=== PATIENT | female | born 1950 | race Caucasian/White ===

== ENCOUNTER 2022-11-26 10:55 | Outpatient (OUT) | payer MEDICARE, OTHER, SELFPAY ==
--- NOTE | 2022-11-26 11:10 | XR_ITS ---
[address] [address] Patient Name: ANGIE WATT MRN: [id number] date: 1950 Sex: F Assigned Patient Location: LAB Current Patient Location: LAB Accession/Order Number: [id number] Exam Date: 11/26/2022 11:12 Report Date: 11/26/2022 11:35 At the request of: YUAN LAURA Procedure: XR chest 2V EXAM: XR chest 2V HISTORY: Persistent Atrial Fibrillation I48.19 COMPARISON: None. TECHNIQUE: PA and lateral views of the chest. FINDINGS: The cardiomediastinal silhouette is normal. No focal consolidation is identified. There is no pneumothorax. No pleural effusion is noted. The osseous structures are intact. IMPRESSION: No acute cardiopulmonary process. Electronically authenticated by: MICHELL PULLIAM Date: 11/26/2022 11:35
[2022-11-26 12:12] LABS: Basophils Percent Auto 0.3 % (0.2-2.0); Eosinophils Absolute Auto 0.2 10^3/uL (0.0-0.7); Eosinophils Percent Auto 3.5 % (0.9-7.0); Hematocrit 38.4 % (36.0-48.0); Immature Granulocytes Abs Auto 0.02 10^3/uL (0.00-0.03); Immature Granulocytes Pct Auto 0.3 % (0.0-0.5); Lymphocytes Absolute Auto 1.5 10^3/uL (1.2-3.8); Lymphocytes Percent Auto 24.7 % (20.5-60.0); Mean Corpuscular HGB Conc 31.3 g/dL (29.9-35.2); Mean Corpuscular Hemoglobin 27.5 pg (26.7-34.0); Mean Corpuscular Volume 87.9 fL (81.0-99.0); Mean Platelet Volume 9.5 fL (9.5-13.5); Monocytes Absolute Auto 0.6 10^3/uL (0.3-0.8); Monocytes Percent Auto 9.5 % (1.7-12.0); Neutrophils Absolute Auto 3.7 10^3/uL (1.4-6.5); Neutrophils Percent Auto 61.7 % (43.0-75.0); Platelet Count 313 10^3/uL (150-450); Red Blood Count 4.37 10^6/uL (4.20-5.40); Red Cell Distribution Width 15.9 % (11.0-15.0)
[2022-11-26 12:26] LABS: Alanine Aminotransferase 22 U/L (14-59); Albumin Globulin Ratio 0.8; Albumin Level 3.4 g/dL (3.4-5.0); Alkaline Phosphatase 129 U/L (46-116); Anion Gap 11.8; Aspartate Amino Transferase 23 U/L (15-37); BUN Creatinine Ratio 12.4; Bilirubin Total 0.3 mg/dL (0.2-1.0); Calcium 9.2 mg/dL (8.5-10.1); Carbon Dioxide 28.7 mmol/L (21.0-32.0); Chloride 103 mmol/L (98-107); Estimated GFR (African America >60 (>=60); Estimated GFR (Non-African Ame >60 (>=60); Globulin 4.2 g/dL; Glucose 115 mg/dL (74-106); Potassium 4.5 mmol/L (3.5-5.1); Sodium 139 mmol/L (136-145); Total Protein 7.6 g/dL (6.4-8.2)
[2022-11-26 12:35] LABS: Chol HDL Ratio 3.1; Cholesterol 194 mg/dL (<=200); HDL Cholesterol 62 mg/dL (40-60); Thyroid Stimulating Hormone 6.049 uIU/mL (0.358-3.740); Triglycerides 69 mg/dL (<=150); VLDL CHOLESTEROL 13.8 mg/dL
== END 2022-11-26 10:56 ==
LOC: LAB 11:02
PROVIDERS: PCP Family Medicine; Visit Provider Nurse Practitioner Family
DX: I48.19 Other persistent atrial fibrillation (principal); E78.5 Hyperlipidemia, unspecified
CPT/HCPCS: 36415; 71046; 80053; 80061; 84443; 85025

== ENCOUNTER 2023-05-16 15:24 | Outpatient (OUT) | payer MEDICARE, OTHER, SELFPAY ==
[2023-05-16 16:21] LABS: Free T3 1.96 pg/mL (2.18-3.98); Thyroid Stimulating Hormone 11.275 uIU/mL (0.358-3.740)
== END 2023-05-16 15:25 | disposition home or self-care (01) ==
LOC: LAB 15:31
PROVIDERS: PCP Family Medicine; Visit Provider Family Medicine
DX: E05.90 Thyrotoxicosis, unspecified without thyrotoxic crisis or storm (principal)
CPT/HCPCS: 36415; 84436; 84443; 84481

== ENCOUNTER 2023-06-14 15:15 | Outpatient (OUT) | payer MEDICARE, SELFPAY ==
[2023-06-14 16:02] LABS: Free T3 1.94 pg/mL (2.18-3.98); Thyroid Stimulating Hormone 7.261 uIU/mL (0.358-3.740)
== END 2023-06-14 15:16 | disposition home or self-care (01) ==
PROVIDERS: PCP Family Medicine; Visit Provider Family Medicine
DX: E05.90 Thyrotoxicosis, unspecified without thyrotoxic crisis or storm (principal)
CPT/HCPCS: 36415; 84436; 84443; 84481

== ENCOUNTER 2023-06-25 12:58 | Outpatient (OUT) | payer MEDICARE, OTHER, SELFPAY ==
--- NOTE | 2023-06-25 13:00 | RT_ITS ---
[facility] Test Date: 2023-06-25 Pat Name: ANGIE WATT Department: Room: - Gender: Female Staff Midwife: Bella Castillo RRT : 1950 Requested By: Armando Spencer Order Number: [id number] Trevor MD: Juvenal Mcgraw Interpretive Statements Pulmonary function testing was completed according to ATS criteria. Findings were considered accurate and reproducible, with exception of DLCO which did not meet ATS standards. Both pre- and post-bronchodilator values utilized for spirometry. No prior studies are available for comparison. Spirometry (based on pre-bronchodilator values): -FEV1/FVC: Normal @ 79% -FEV1: Normal @ 85% -FVC: Low normal @ 82% -There is no significant bronchodilator response. Lung volumes by plethysmography: -RV: Increased @ 133% -TLC: Increased @ 125% Diffusion capacity: -DLCO: Normal @ 116% when corrected for Hb 12g/dL Flow-volume loop: -Mild restrictive pattern Impressions: -Spirometry trends towards a mild restrictive pattern, however lung volumes are increased. Normal diffusion capacity. Pattern suggests obesity (stated BMI 54) is inducing a restrictive physiology which may be masking an underlying obstructive process (e.g. COPD given smoking history) as an elevated RV and TLC suggest air trapping and hyperinflation respectively. PFT does not suggest any amiodarone-induced pulmonary disease. Clinical correlation required. Electronically Signed On 06-26-2023 12:30:38 EST by Juvenal Mcgraw
[2023-06-25] MEDS: ALBUTEROL SULFATE 2.5 MG/3 ML VIAL NEB IH (14:13)
== END 2023-06-25 12:59 | disposition home or self-care (01) ==
LOC: CARD 12:58
PROVIDERS: PCP Family Medicine; Visit Provider Nurse Practitioner
DX: Z79.899 Other long term (current) drug therapy (principal)
CPT/HCPCS: 36415; 85018; 94060; 94726; 94729

== ENCOUNTER 2023-06-27 13:52 | Outpatient (OUT) | payer MEDICARE, OTHER, SELFPAY ==
--- OUTSIDE RECORDS SUMMARY | 2023-06-27 13:55 | XMS_ITS | CCD ---
Author Name Unknown Address [address] [place] [address] Organization [facility] Care Team Providers Care [place] Jailer Name Role Phone KERRI SMITH Referring Unavailable BISHOPY, KERRI Primary Care Unavailable JOECHARLI Polk Attending Unavailable JOECHARLI Polk Admitting Unavailable MISC, DR FLAHERTY Admitting Unavailable HOY, DR MANNING Primary Care Unavailable MISC, DR FLAHERTY Attending Unavailable MISC, DR FLAHERTY Consulting Unavailable JOE, CHARLI Consulting Unavailable HOY, DR MANNING Attending Unavailable HOY, DR MANNING Consulting Unavailable HOY, DR MANNING Primary Care Unavailable HOY, DR MANNING Admitting Unavailable JOE, CHARLI Consulting Unavailable JOE, CHARLI Admitting Unavailable JOE, CHARLI Attending Unavailable HOY, DR MANNING Primary Care Unavailable YUAN LAURA Attending Unavailable LISSA OLIVER Attending Unavailable Problems Active Problems Problem Classification Problem Date Documented Da te Episodic/Chronic Cardiac dysrhythmias (4 sources) Unspecified atrial fibrillation; Translations: [UNSPECIFIED ATRIAL FIBRILLATION] Onset: 06-14-2021 Chronic Essential hypertension (1 source) Essential (primary) hypertension; Translations: [ESSENTIAL PRIMARY HYPERTENSION] Onset: 06-27-2021 Chronic Other aftercare (2 sources) Other terminal carman (current) drug therapy; Translations: [Other skilled nursing (current) drug therapy] Onset: 06-18-2023 Episodic Thyroid disorders (1 source) Hypothyroidism, unspecified; Translations: [HYPOTHYROIDISM UNSPECIFIED] Onset: 06-27-2021 Chronic Unclassified (4 sources) CONTACT W/AND (SUSP) EXPOS COVID-19; Translations: [CONTACT W/AND (SUSP) EXPOS COVID-19] Onset: 06-18-2021 Unclassified (2 sources) Other persistent atrial fibrillation; Translations: [Other persistent atrial fibrillation] Onset: 05-09-2022 Past or Other Problems Problem Classification Problem Date Documented Da te Episodic/Chronic Other lower respiratory disease (1 source) Other forms of dyspnea; Translations: [OTHER FORMS OF DYSPNEA] Onset: 06-27-2021 Episodic Unclassified (1 source) CONTACT W/AND (SUSP) EXPOS COVID-19; Translations: [CONTACT W/AND (SUSP) EXPOS COVID-19] Onset: 03-07-2022 Results Test Name Value Interpretation Reference Range Facility Office Visiton 06-18-2023 Follow-up visit [id number] Jenny Watt 1950 F Date Provider Department Center 06/18/2023 LISSA CASTRO Family History Problem Relation Age of Onset Heart attack Father Atrial fibrillation Father Atrial fibrillation Sister Family Status - Relation Status Age at Father Sister Level of Service:80905 MD OFFICE/OUTPATIENT ESTABLISHED MOD MDM 30 MIN [facility] Orders Onlyon 02-20-2023 Orders Only [id number] Jenny Watt 1950 F Date Provider Department Center 02/20/2023 VALENTE LYNN [facility] Family History Problem Relation Age of Onset Heart attack Father Atrial fibrillation Father Atrial fibrillation Sister Family Status - Relation Status Age at Father Sister [facility] 36on 12-11-2022 36 Patient called back and I made her aware. Lab results faxed to PCP. [facility] 36on 12-10-2022 36 Please let her know her CXR was normal. Her labs showed her kidney function, liver function and blood counts were all normal. Her bad cholesterol levels were above goal. She is at 119, would like for her to be less than 100 for stroke and [place] prevention. Recommend heart healthy diet such as the mediterranean diet and trying to implement some form of exercising. Her thyroid function is a little elevated but better since her last labs we have on file from 2019. Please make sure she follows up with her PCP for her thyroid management. Continue with follow-up amio testing q6 months. Thank you! [facility] Telephoneon 12-10-2022 Telephone [id number] Jenny Watt 1950 F Date Provider Department Center 12/10/[address] Family History Problem Relation Age of Onset Heart attack Father Atrial fibrillation Father Atrial fibrillation Sister Family Status - Relation Status Age at Father Sister Normal [facility] Office Visiton 11-19-2022 Follow-up visit [id number] Jenny Watt 1950 F Date Provider Department Center 11/19/2022 YUAN ACE CRYSTAL [facility] Family History Problem Relation Age of Onset Heart attack Father Atrial fibrillation Father Atrial fibrillation Sister Family Status - Relation Status Age at Father Sister Level of Service:34336 MD OFFICE/OUTPATIENT ESTABLISHED MOD MDM 30-39 MIN Reason for Visit and Comments: Atrial Fibrillation [80] Hypertension [968828] Normal [facility] Covid-19 PCR ([facility]on 02-16 SARS-CoV-2 (COVID-19) RNA SP+probe Ql (Unsp spec) Not detected Normal NOT DETECTED [facility] Comment on above: Result Comment: When diagnostic testing is negative, the possibility of a false negative should be considered in the context of a patient's recent exposures and the presence of clinical signs and symptoms consistent with SARS-CoV-2. This test is not yet approved or cleared by the [place] FDA. When there are no FDA-approved or cleared tests available, and other criteria are met, FDA can make tests available under an emergency access mechanism called an Emergency Use Authorization (EUA). The EUA for this test is supported by the [employer] Helper of Health and Human Service's declaration that circumstances exist to justify the emergency use of in vitro diagnostics for the detection and/or diagnosis of the virus that causes COVID-19. This EUA will remain in effect for the duration of the COVID-19 declaration justifying emergency of IVDs, unless it is terminated or revoked by the FDA (after which the test may no longer be used). Performed By: #### C VDTB #### [facility] [address] [place] [address] Dr. Maik Singleton BASIC METABOLIC PANELon 07-19 Calcium [Mass/Vol] 8.1 mg/dL Low 8.6-10.3 [facility] Comment on above: Order Comment: No: D o not add to previous draw Performed By: #### 1 69, [id number] #### [facility] [address] [place] [address], [place] Chloride [Moles/Vol] 99 mmol/L Normal 98-107 [facility] Comment on above: Order Comment: No: D o not add to previous draw Performed By: #### 1 69, 83710 #### [facility] [address] [place] [address], [place] CO2 [Moles/Vol] 27 mmol/L Normal 21-31 [facility] Comment on above: Order Comment: No: D o not add to previous draw Performed By: #### 1 69, 82834 #### [facility] [address] [place] [address], [place] Creatinine [Mass/Vol] 0.82 mg/dL Normal 0.60-1.20 [facility] Comment on above: Order Comment: No: D o not add to previous draw Performed By: #### 1 69, [id number] #### [facility] [address] [place] [address], [place] GFR/1.73 sq M.predicted among blacks MDRD (S/P/Bld) [Vol rate/Area] mL/min/{1.73_m2} Normal >60 [facility] Comment on above: Order Comment: No: D o not add to previous draw Performed By: #### 1 69, 75520 #### [facility] [address] [place] [address], [place] GFR/1.73 sq M.predicted among non-blacks MDRD (S/P/Bld) [Vol rate/Area] mL/min/{1.73_m2} Normal >60 [facility] Comment on above: Order Comment: No: D o not add to previous draw Performed By: #### 1 69, 44678 #### [facility] [address] [place] [address], [place] Glucose [Mass/Vol] 109 mg/dL High 70-100 [facility] Comment on above: Order Comment: No: D o not add to previous draw Performed By: #### 1 69, 31793 #### [facility] [address] [place] [address], [place] Potassium [Moles/Vol] 4.0 mmol/L Normal 3.5-5.1 [facility] Comment on above: Order Comment: No: D o not add to previous draw Performed By: #### 1 69, 64360 #### [facility] [address] [place] [address], [place] Sodium [Moles/Vol] 134 mmol/L Low 136-145 [facility] Comment on above: Order Comment: No: D o not add to previous draw Performed By: #### 1 69, 26413 #### [facility] [address] [place] [address], [place] Urea nitrogen [Mass/Vol] 12 mg/dL Normal 7-25 [facility] Comment on above: Order Comment: No: D o not add to previous draw Performed By: #### 1 69, 61032 #### [facility] [address] [place] [address], [place] CBC COMPLETE BLOOD COUNTon 0 2- Erythrocyte distribution width (RBC) [Ratio] 15.5 % High 11.5-15.0 [facility] Comment on above: Order Comment: No: D o not add to previous draw Performed By: #### 5 0608 #### [facility] [address] [place] [address], [place] Hematocrit (Bld) [Volume fraction] 36.9 % Normal 36.0-45.0 [facility] Comment on above: Order Comment: No: D o not add to previous draw Performed By: #### 5 0608 #### [facility] [address] [place] [address], [place] Hemoglobin (Bld) [Mass/Vol] 11.5 g/dL Low 12.0-15.0 [facility] Comment on above: Order Comment: No: D o not add to previous draw Performed By: #### 5 0608 #### [facility] [address] [place] [id number], [facility] MCH (RBC) [Entitic mass] 27.1 pg Normal 27.0-33.0 [facility] Comment on above: Order Comment: No: D o not add to previous draw Performed By: #### 5 0608 #### [facility] [address] [place] [address], [facility] MCHC (RBC) [Mass/Vol] 31.2 g/dL Low 32.0-35.0 [facility] Comment on above: Order Comment: No: D o not add to previous draw Performed By: #### 5 0608 #### [facility] [address] [place] [address], [facility] MCV (RBC) [Entitic vol] 87.0 fL Normal 82.0-98.0 [facility] Comment on above: Order Comment: No: D o not add to previous draw Performed By: #### 5 0608 #### [facility] [address] [place] [address], [facility] Nucleated RBC/100 WBC (Bld) [Ratio] 0 % Normal 0-0 [facility] Comment on above: Order Comment: No: D o not add to previous draw Performed By: #### 5 0608 #### [facility] [address] [place] [id number], [facility] PLAT CNT 258 10*3/uL Normal 150-400 The [facility] Comment on above: Order Comment: No: D o not add to previous draw Performed By: #### 5 0608 #### [facility] [address] [place] [address], [facility] RBC (Bld) [#/Vol] 4.24 10*6/uL Normal 3.80-5.00 [facility] Comment on above: Order Comment: No: D o not add to previous draw Performed By: #### 5 0608 #### [facility] [address] [place] [address], [facility] WBC (Bld) [#/Vol] 10.20 10*3/uL Normal 4.00-10.60 [facility] Comment on above: Order Comment: No: D o not add to previous draw Performed By: #### 5 0608 #### [facility] [address] [facility] [address] MAGNESIUM BLOODon 08-10-2021 Magnesium [Mass/Vol] 2.2 mg/dL Normal 1.9-2.7 [facility] Comment on above: Order Comment: No: D o not add to previous draw Performed By: #### 1 0070, [id number] #### [facility] [address] [facility] APTTon 08-09-2021 aPTT Coag (Bld) [Time] 26.9 s Normal 25.0-35.0 [facility] Comment on above: Result Comment: ALL RESULTS MUST BE INTERPRETED WITH RESPECT TO BLOOD DRAWING ARTIFACT OR DILUTION ERROR OF ANTICOAGULANT AT THE TIME OF SAMPLING. THE APTT SHOULD NOT BE USED TO MONITOR UNFRACTIONATED HEPARIN THERAPY, THIS LABORATORY NO LONGER HAS AN ESTABLISHED THERAPEUTIC RANGE BASED ON THE APTT. IT IS RECOMMENDED THAT THE UFH - HEPARIN ASSAY (ANTI-XA ACTIVITY) BE USED FOR THIS PURPOSE. Performed By: #### 5 6101, 08721 #### [facility] [address] [place] [address], [facility] CBC W/DIFFon 08-09-2021 ABS IMM GRANS 0.0 10*3/uL Normal 0.0-0.2 The [facility] Comment on above: Performed By: #### 5 0103 #### [facility] [address] [place] [address], [facility] ABS NEUTROPHILS 5.1 10*3/uL Normal 1.6-7.6 The [facility] Comment on above: Performed By: #### 5 0103 #### [facility] [address] [place] [address], [facility] Basophils (Bld) [#/Vol] 0.0 10*3/uL Normal 0.0-0.2 [facility] Comment on above: Performed By: #### 5 0103 #### [facility] [address] [place] [address], [facility] Basophils/100 WBC (Bld) 0.4 % Normal 0.0-1.0 [facility] Comment on above: Performed By: #### 5 0103 #### [facility] [address] [facility] [place] [address], [facility] Eosinophils (Bld) [#/Vol] 0.2 10*3/uL Normal 0.0-0.5 [facility] Comment on above: Performed By: #### 5 0103 #### [facility] [address] [facility] [place] [address], [facility] Eosinophils/100 WBC (Bld) 2.3 % Normal 0.0-6.0 [facility] Comment on above: Performed By: #### 5 0103 #### [facility] [address] [facility] Erythrocyte distribution width (RBC) [Ratio] 15.3 % High 11.5-15.0 [facility] Comment on above: Performed By: #### 5 0103 #### [facility] [address] [facility] [place] [address], [facility] Hematocrit (Bld) [Volume fraction] 37.4 % Normal 36.0-45.0 [facility] Comment on above: Performed By: #### 5 3 #### [facility] [address] [place] [address], [facility] Hemoglobin (Bld) [Mass/Vol] 11.5 g/dL Low 12.0-15.0 [facility] Comment on above: Performed By: #### 5 0103 #### [facility] [address] [facility] [place] [address], [facility] IMMATURE GRANS 0.3 % Normal 0.0-1.0 The [facility] Comment on above: Performed By: #### 5 0103 #### [facility] [address] [facility] [place] [address], [facility] Lymphocytes (Bld) [#/Vol] 1.1 10*3/uL Low 1.2-4.0 [facility] Comment on above: Performed By: #### 5 0103 #### [facility] [address] [place] [address], [facility] Lymphocytes/100 WBC (Bld) 16.1 % Low 20.0-45.0 [facility] Comment on above: Performed By: #### 5 0103 #### [facility] [address] [facility] [place] [address], [facility] MCH (RBC) [Entitic mass] 26.9 pg Low 27.0-33.0 [facility] Comment on above: Performed By: #### 5 0103 #### [facility] [address] [facility] [place] [address], [facility] MCHC (RBC) [Mass/Vol] 30.7 g/dL Low 32.0-35.0 [facility] Comment on above: Performed By: #### 5 0103 #### [facility] [address] [place] [address], [facility] MCV (RBC) [Entitic vol] 87.4 fL Normal 82.0-98.0 [facility] Comment on above: Performed By: #### 5 3 #### [facility] [address] [facility] [place] [address], [place] Monocytes (Bld) [#/Vol] 0.6 10*3/uL Normal 0.1-1.0 [facility] Comment on above: Performed By: #### 5 0103 #### [facility] [address] [place] [address], [facility] MONOS 8.8 % Normal 5.0-12.0 [facility] Comment on above: Performed By: #### 5 0103 #### [facility] [address] [place] [address], [facility] Neutrophils/100 WBC (Bld) 72.1 % High 40.0-72.0 [facility] Comment on above: Performed By: #### 5 0103 #### [facility] [address] [facility] [address], [facility] Nucleated RBC/100 WBC (Bld) [Ratio] 0 % Normal 0-0 [facility] Comment on above: Performed By: #### 5 0103 #### [facility] [address] [facility] [address], [facility] PLAT CNT 271 10*3/uL Normal 150-400 The [facility] Comment on above: Performed By: #### 5 0103 #### [facility] [address] [facility] [address], [facility] RBC (Bld) [#/Vol] 4.28 10*6/uL Normal 3.80-5.00 The [facility] Comment on above: Performed By: #### 5 0103 #### [facility] [address] [facility] [place] [address], [facility] WBC (Bld) [#/Vol] 7.02 10*3/uL Normal 4.00-10.60 [facility] Comment on above: Performed By: #### 5 3 #### [facility] [address] [place] [address], [facility] COMP METABOLIC PANELon 08-09 Albumin [Mass/Vol] 3.8 g/dL Normal 3.5-5.7 [facility] Comment on above: Performed By: #### 0 0121 #### [facility] [address] [place] [address], [facility] ALKALINE PHOSPH 140 IU/L High 34-104 The [facility] Comment on above: Performed By: #### 0 0121 #### [facility] [address] [place] [address], [place] ALT [Catalytic activity/Vol] 13 U/L Normal 7-52 [facility] Comment on above: Performed By: #### 0 0121 #### [facility] [address] [place] [address], [place] AST [Catalytic activity/Vol] 17 U/L Normal 13-39 [facility] Comment on above: Performed By: #### 0 0121 #### [facility] [address] [place] [address], [place] Bilirubin [Mass/Vol] 0.5 mg/dL Normal 0.3-1.0 [facility] Comment on above: Performed By: #### 0 0121 #### [facility] [address] [place] [address], [place] Calcium [Mass/Vol] 8.7 mg/dL Normal 8.6-10.3 [facility] Comment on above: Performed By: #### 0 0121 #### [facility] [address] [place] [address], [place] Chloride [Moles/Vol] 104 mmol/L Normal 98-107 [facility] Comment on above: Performed By: #### 0 0121 #### [facility] [address] [place] [address], [place] CO2 [Moles/Vol] 28 mmol/L Normal 21-31 The [facility] Comment on above: Performed By: #### 0 0121 #### [facility] [address] [place] [address], [place] Creatinine [Mass/Vol] 0.74 mg/dL Normal 0.60-1.20 [facility] Comment on above: Performed By: #### 0 0121 #### [facility] [address] [place] [address], [place] GFR/1.73 sq M.predicted among blacks MDRD (S/P/Bld) [Vol rate/Area] mL/min/{1.73_m2} Normal >60 [facility] Comment on above: Performed By: #### 0 0121 #### [facility] [address] [place] [address], [place] GFR/1.73 sq M.predicted among non-blacks MDRD (S/P/Bld) [Vol rate/Area] mL/min/{1.73_m2} Normal >60 [facility] Comment on above: Performed By: #### 0 0121 #### [facility] [address] [place] [address], [place] Glucose [Mass/Vol] 116 mg/dL High 70-100 [facility] Comment on above: Performed By: #### 0 0121 #### [facility] [address] [place] [address], [place] Potassium [Moles/Vol] 3.9 mmol/L Normal 3.5-5.1 [facility] Comment on above: Performed By: #### 0 0121 #### [facility] [address] [place] [address], [place] Protein [Mass/Vol] 6.4 g/dL Normal 6.0-8.3 [facility] Comment on above: Performed By: #### 0 0121 #### [facility] [address] [place] [address], [place] Sodium [Moles/Vol] 138 mmol/L Normal 136-145 [facility] Comment on above: Performed By: #### 0 0121 #### [facility] [address] Urea nitrogen [Mass/Vol] 10 mg/dL Normal 7-25 [facility] Comment on above: Performed By: #### 0 0121 #### [facility] [address] [facility] [address] Cardiovascular Lab Reporton 08-09-2021 Cardiovascular Lab Report [facility] Patient Name: Jenny Watt [facility] MR #: [id number] Physician: Charli Pulido MD Department of Service Date: 08/09/2021 Medicine Birthdate: 1950 Division of Room #: 3CD [id number] Cardiology Adult Cardiovascular Services [place] [address] Cardiovascular Laboratory Report ATRIAL FIBRILLATION ABLATION PROCEDURE NOTE DATE OF PROCEDURE: 08/09/2021 PERFORMING PHYSICIAN: Dr. Charli Pulido CONSENT: Patient NAME OF THE PROCEDURE: Pulmonary Vein Isolation and Comprehensive EP study. INDICATIONS FOR PROCEDURE: 1. Persistent atrial fibrillation non responsive to pharmacologic therapy. PROCEDURES PERFORMED: 1. Sonosite guided venous access as noted below and images stored in PACS. 2. Comprehensive EP study and catheter ablation for persistent atrial fibrillation through the pulmonary vein isolation technique. This includes right atrial recording and pacing, His bundle recording and right ventricular recording and pacing. 3. Intracardiac EP 3D mapping. 4. Intracardiac echocardiogram 5. Left atrial and coronary sinus recording and pacing to assess ablation results. 6. Left heart pressure measurements and LV pacing and recording. 7. Induction of arrhythmia and testing of ablation results using intravenous adenosine infusion. 8. Fluroscopy. FLUOROSCOPY: 4min 7s/ 108mGray PROCEDURE NOTE: 71-year-old lady with a history of persistent atrial fibrillation, who was symptomatic with AFib who was fatigued and tired, and was previously cardioverted, but could not be converted to sinus rhythm. She was brought to the EP lab on amiodarone and on the day of presentation, she was noted to be in atrial fibrillation. Risks, benefits and alternatives of the procedure were discussed with the patient and family who agreed to proceed. Please refer to my consult note for details of the discussion and of indications. The patient was brought to the EP lab and a procedural pause was performed identifying the patient, the procedure. The patient presented in Afib and ROGELIO was performed to rule out TYREE clot. ICE imaging was used to rule out TYREE clot and DCCV was performed to convert to sinus rhythm but was unsuccessful on two occasions. Both the groins were then prepared and draped. Ultrasound was used to determine the course and patency of the femoral veins on both sides and they were noted to be patent and the image stored in Merge. After infiltration with 1% lidocaine, 4 venous sheaths were placed in the right. A right radial arterial line was placed by Anesthesia team. RFV: 8Fx4 [employer] ThermoCool SF Bi-Directional over SL1/ Vizigo, SL1:Pentaray, ICE catheter, CS Catheter (EZ Steer) Heparin bolus was given followed by continuous intravenous drip to target ACT around 350. An intracardiac ultrasound catheter was inserted into the right atrium to examine the right atrial anatomy, atrial septum, pulmonary vein anatomy and to monitor for pericardial effusion and guide transseptal access. At baseline, there was no pericardial effusion and no TYREE clot. LA was noted to be moderately enlarged with moderate MR while RA was severely enlarged. EP study was then performed and at baseline HV was 42ms. Ventricular pacing was performed in the RV with ventricular ERP was noted at 600/290ms. Atrial pacing could not be done as patient was in Afib. Esophagus was mapped using the [employer] 3D mapping software with quadripolar catheter and noted to be towards the left sided pulmonary veins. Double transseptal access technique was used to cross to the left side. Following the first transeptal access, which was achieved via puncture of the thinner aspect of the septum using Enrique needle, Pentaray catheter was placed in the left atrium. Transseptal LA pressure was 27/21mmHg at baseline. With LV pacing at 600ms, the LA pressure was 28/22mmHg. With repeat access, SL1 sheath was exchanged over a wire to 8.5F Vizigo sheath. Pulmonary vein and left atrial anatomic mapping was performed using a 3-D CARTO computer-based mapping system. Identification of the pulmonary vein ostia was assisted by the left atrial signals on the ablation catheter, the ICE catheter and the Pentaray catheter placed in the individual pulmonary veins. Left atrial mapping was performed in afib. The esophagus was mapped and this was noted to lie along the midline. Ablation was performed using Thermocool ablation using 40W targeting 5-8s in the posterior wall and roof and 10-12s while ablating in the anterior WACA. Entrance block was observed. Again, I turned my attention to the right side and ablation was performed. While ablating on the anterior aspect, phrenic capture was ruled out before delivering ablation lesions. Entrance block was achieved. I then turned my attention to the posterior wall. Ablation was perform (more content not included)... Normal [facility] POC GLUCOSE LABon 08-09-2021 Glucose [Mass/Vol] 107 mg/dL High 70-100 [facility] Comment on above: Performed By: #### [id number] #### [facility] [address] PROTHROMBIN TIMEon 2 INR Coag (PPP) [Relative time] 1.01 {INR} Normal 0.91-1.16 [facility] Comment on above: Result Comment: ACCC P RECOMMENDED INR FOR WARFARIN THERAPY ------ ------- CONDITION INR PROPHYLAXIS OF VENOUS THROMBOSIS 2-3 (HIGH-RISK SURGERY) TREATMENT OF VENOUS THROMBOSIS 2-3 TREATMENT OF PULMONARY EMBOLISM 2-3 PREVENTION OF SYSTEMIC EMBOLISM: 2-3 ACUTE MYOCARDIAL INFARCTION TISSUE HEART VALVES VALVULAR HEART DISEASE ATRIAL FIBRILLATION RECURRENT SYSTEMIC EMBOLISM MECHANICAL HEART VALVE 2.5-3.5 FROM: ORAL ANTICOAGULANTS. MECHANISM OF ACTION, CLINICAL EFFECTIVENESS, AND OPTIMAL THERAPEUTIC RANGE. CHEST 1995;108:231S-246S. Performed By: #### [id number], [id number] #### [facility] [address] [facility] [place] [address], [facility] PT Coag (PPP) [Time] 13.3 s Normal 12.3-14.8 [facility] Comment on above: Result Comment: ALL RESULTS MUST BE INTERPRETED WITH RESPECT TO BLOOD DRAWING ARTIFACT OR DILUTION ERROR OF ANTICOAGULANT AT THE TIME OF SAMPLING. Performed By: #### [id number], [id number] #### [facility] [address] [place] [address], [facility] CTA CHESTon 08-08-2021 CTA CHEST [facility] Department of Radiology [address] [place] [address] [id number] ======== Patient Name: JENNY WATT : 1950 Sex: F Age: Race: White Pt. Location: Patient Status: O Ordered Date: 07/27/2021 1:35:00 PM Completed Date: 08/08/2021 12:58 PM Requesting Provider: CHARLI PULIDO Attending Provider: CHARLI PULIDO Report Copy To: KERRI SMITH Signs & Symptoms: I48.0 Paroxysmal atrial fibrillation I10 History: Kailey patient will need labs need to schedule next week, please transfer to Judy Comments: , AFib Ablation 08/09/21 Exam: CTA CHEST ======== CTA CHEST 08/08/2021 1:00 PM CLINICAL INDICATIONS: I48.0 Paroxysmal atrial fibrillation I10 TECHNOLOGIST COMMENTS: sob htn a fib pre ablasion QUESTIONS PER RADIOLOGIST: , AFib Ablation 08/09/21 PROTOCOL: Axial CT angiography images were obtained with IV contrast. CONTRAST: Contrast: OMNIPAQUE 350 (LOCM), 130 milliliter, Intravenous TECHNIQUE: Multidetector CT axial slices of the chest were obtained with IV contrast. Multiplanar reformats were performed and viewed on a separate workstation and reviewed to further define anatomy and possible pathology. Gated 3-D reconstruction of the left atrium and pulmonary veins were performed and saved on the PACS. Images are available for catheter lab team prior to ablation procedure. All CT scans at this facility use dose modulation, iterative reconstruction, and/or weight based dosing when appropriate to reduce radiation dose to as low as reasonably achievable. COMPARISON: None. FINDINGS: Lower neck: Visualized part of Thyroid gland within normal limits, no supraclavicle adenopathy. Vessels: Pulmonary arteries appeared grossly unremarkable. Minimal atherosclerotic changes in the aorta. and coronary arteries. Mediastinum and Eve: Within normal limits. Heart: Normal size. No pericardial effusion. Airways: Within normal limits Lungs: Within normal limits. Pleura: Within normal limits. Chest Wall: Within normal limits. Upper Abdomen: Small splenule is seen adjacent to the posterior pole of the spleen inferiorly. Atrophic fatty infiltrated pancreas. Otherwise, visualized abdominal viscera appeared unremarkable Bones: Bony spurring in the lower cervical and thoracic spine suggesting mild spondylosis with no acute bony pathology. Gated evaluation of the left atrium revealed normal size and morphology. The left atrium measures maximum transverse dimensions of 8.3 x 5 cm. There is no filling defects in the left atrial appendage with ostium of approximately 16.5 mm and the length of the left atrial appendage is 4.7 cm. The left superior pulmonary vein measures 14 mm and first branch is approximately 3.6 cm from the ostium. The left inferior pulmonary vein ostium is 14 mm and first branch is approximately 2.6 cm from the ostium. The right superior pulmonary vein measures 17 mm at the ostium and first branch is approximately 2.2 cm from the ostium. The right inferior pulmonary vein measures 20 mm at the ostium and first branch is approximately 18 mm from the ostium. The esophagus which is mildly air-filled and demonstrates air-contrast level is inseparable from the posterior wall of the left atrium but not adjacent to the ostium of any of the pulmonary veins. IMPRESSION: Normal size and morphology of the left atrium and measurement of the left atrial appendage and 2 pulmonary veins on each side as listed above. 3-D volume rendered images of the left atrium and pulmonary veins are saved on PACS for utilization by the electrophysiology team during ablation procedure. Mild lower cervical and thoracic spondylosis. Otherwise, unremarkable chest CTA examination. Electronically signed: Audrey Umana. Transcribed by: [email or web address], User Resident: Electronically Signed by: AUDREY UMANA @ 08/08/2021 03:05 PM Normal [facility] Comment on above: Order Comment: , Gavin b Ablation 08/09/21 Covid-19 PCR ([facility])on 05-18 SARS-CoV-2 (COVID-19) RNA SP+probe Ql (Unsp spec) Not detected Normal NOT DETECTED [facility] Comment on above: Result Comment: This test is not yet approved or cleared by the [place] FDA. When there are no FDA-approved or cleared tests available, and other criteria are met, FDA can make tests available under an emergency access mechanism called an Emergency Use Authorization (EUA). The EUA for this test is supported by the [employer] of Health and Human Service's (HHS's) declaration that circumstances exist to justify the emergency use of in vitro diagnostics for the detection and/or diagnosis of the virus that causes COVID-19. This EUA will remain in effect (meaning this test can be used) for the duration of the COVID-19 declaration justifying emergency of IVDs, unless it is terminated or revoked by FDA (after which the test may no longer be used). When diagnostic testing is negative, the possibility of a false negative should be considered in the context of a patient's recent exposures and the presence of clinical signs and symptoms consistent with SARS-CoV-2. Performed By: #### [facility] #### [facility] Laboratory [address] [place] [address] Dr. Maik Singleton Encounters Encounter Date Encounter Type Care Provider Facility Start: 06-18-2023 End: 06-18-2023 [facility] Start: 11-19-2022 End: 11-19-2022 ambulatory [facility] Start: 11-19-2022 End: 11-19-2022 Encounter for general adult medical examination without abnormal findings [facility] Start: 03-07-2022 End: 03-07-[address] KERRI SMITH Facility:[facility] Start: 08-09-2021 End: 08-10-2021 ambulatory KERRI SMITH Facility:[facility] Start: 06-18-2021 Encounter for prepro cedural laboratory examination CHARLI PULIDO [facility] Start: 06-14-2021 End: 06-14-[address] DOCTOR DIXON Facility:[facility] Start: 06-12-2021 End: 06-12-2021 ambulatory CHARLI JOE Facility:[facility] Start: 06-12-2021 End: 06-12-2021 Encounter for preprocedural laboratory examination CHARLI PULIDO Facility: Payers Date Payer Category Payer Medicare [id number] 1959 Private Health Insurance [id number] 1950 Unknown [id number] 1950 Unknown [id number] 1950 Unknown [id number] 1950 Unknown [id number] Progress note 06-18-2023 Note Date & Type Note Facility 06-18-[address] Electrophysiology Consult Note Reason for visit: AF , follow up 6 months HPI: Jenny Watt is a 73 y.o. year old with past medical history of A-fib s/p PVI as well as posterior box isolation 07/2021, hypertension, HFpEF, anxiety. She is here for 6-month follow-up regarding her A-fib. She continues to do well on amiodarone. She has noted some palpitations infrequently but thinks they are related to her anxiety. otherwise she has been feeling well with no complaints of chest pain, shortness of breath, LE edema 10/31/[address] pulido Patient is s/p A. fib ablation on 08/09/2021 which required both PVI as well as posterior box isolation. She was also noted to have evidence of diastolic dysfunction. We willPatient has doing well and is in sinus rhythm today. EP study 08/09/2021OST PROCEDURE DIAGNOSIS 1. Persistent atrial fibrillation s/p PVI (WACA) + Superior roof and Inferior line (posterior box isolation). 2. Atrial flutter s/p CTI ablation. 4. EP study revealing no retrograde accessory pathway. 5. Elevated LA filling pressures. EKG 10/31/2021 shows sinus rhythm with normal intervals 06/27/21 Patient was taken for cardioversion which was unsuccessful. She is still in atrial fibrillation and blood pressure is slightly high today. She is wanting to pursue weight loss while she waits for the ablation Prior HPI 69 y/o F who presents to clinic for consideration of possible watchman. She has a hx of a.fib. She notes that she thinks she has been in chronic a.fib for the past year. Denies any hx of cardioversion. She c/o feeling short of breath with any exertion. She gets palpitations as well with exertion. At rest she feels okay. Feels like her mobility is limited d/t her symptoms. C/o issues with her knees which also limits her mobility. Dx with KYLEE and has been on CPAP x 1 week. Denies any bleeding issues and has not trouble with NOAC. PMHx: a.fib; HTN, anxiety FMHx: father - [place]; sister - a.fib; father - a.fib Echocardiogram from 04/13/2020 reveals normal EF with intact atrial septum but moderate dilatation of left atrium and right atrium with trace mitral regurgitation. Holter monitor that was placed for 48 hours revealed evidence of chronic atrial fibrillation with the longest pause of 4.8 seconds in duration. She was also noted to have episodes as fast as 132 bpm when she was in A. fib with rapid ventricular rate. no symptoms noted with these long pauses. TESTING: EKG from 12/05/2014 shows sinus rhythm with normal intervals Echo 04/13/2020: Normal LV systolic function, no evidence of valvular dysfunction, normal right-sided pressures, moderate by atrial dilation Lipid panel 04/11/2020: Cholesterol 167, HDL 44, trig 100, LDL 103 TSH 04/11/2020: 8.847 PMH: Past Medical History: Diagnosis Date Abnormal ECG Arrhythmia Atrial fibrillation (CMS/HCC) Hypertension Hypothyroidism Paroxysmal atrial fibrillation (CMS/HCC) 05/15/2022 Sleep apnea PSH: Past Surgical History: Procedure Laterality Date ABLATION OF DYSRHYTHMIC FOCUS 08/09/2021 afib ablation CHOLECYSTECTOMY CTA CHEST W AND/OR WO IV CONTRAST 08/08/2021 CT CHEST ANGIOGRAM W AND/OR WO IV CONTRAST MURRAY CONVERSION SH: Social Determinants of Health Tobacco Use: Medium Risk (11/19/2022) Patient History Smoking Tobacco Use: Former Smokeless Tobacco Use: Never Passive Exposure: Not on file Alcohol Use: Not on file Financial Resource Strain: Not on file Food Insecurity: Not on file Transportation Needs: Not on file Physical Activity: Not on file Stress: Not on file Social Connections: Not on file Intimate Partner Violence: Not on file Depression: Not on file Housing Stability: Not on file Allergies: No Known Allergies Weight: No weight available Visit Vitals BP 146/84 (BP Location: Left wrist, Patient Position: Sitting) Pulse 83 Ht 1.702 m (5' 7 ) SpO2 94% BMI 46.99 kg/m??? Smoking Status Former BSA 2.54 m??? Meds: Current Outpatient Medications on File Prior to Visit Medication Sig Dispense Refill amiodarone (Pacerone) 100 mg tablet Take 1 tablet (100 mg) by mouth once daily as directed. 90 tablet 3 apixaban (Eliquis) 5 mg tablet Take 1 tablet by mouth in the morning and at bedtime. carvedilol (Coreg) 3.125 mg tablet Take 1 tablet (3.125 mg) by mouth with breakfast and with evening meal. (Patient taking differently: Take 6.25 mg by mouth with breakfast and with evening meal.) 180 tablet 3 dilTIAZem ER (Tiazac) 180 mg 24 hr capsule Take 1 tablet by mouth in the morning. doxepin (SINEquan) 10 mg capsule 10mg in the AM, 50mg in the PM irbesartan (Avapro) 300 mg tablet Take 1 tablet by mouth in the morning. levothyroxine (Synthroid, Levoxyl) 50 mcg tablet Take 1 tablet by mouth in the morning. omeprazole (PriLOSEC) [address] capsule Take 1 tablet by mouth in the morning. No current facilit (more content not included)... [facility] Progress note 06-18-2023 Note Date & Type Note Facility 06-18-2023 Note Patient here for 6 m o follow up PAF, hypertension, and BYNUM. She had thyroid function drawn in Apr 2023, but CXR hasn't been done since November 2022. Dr. Smith increased carvedilol to 6.25mg bid. He also tried her on a different thyroid medication. This gave her palpitations and SOB so she stopped it. She has been much better since stopping it. She denies chest pain, SOB, and palpitations. Review of Systems Cardiovascular: Positive for leg swelling (resolves by morning). Musculoskeletal: Positive for arthritis, back pain and joint pain. Neurological: Positive for light-headedness. All other systems reviewed and are negative. [facility] Progress note 11-26-2022 Note Date & Type Note Facility 11-26-2022 Note Lipid [facility] Progress note 11-19-2022 Note Date & Type Note Facility 11-19-2022 Note Patient here for 6 m o follow up persistent afib and hypertension. She has not had amiodarone testing completed and she does not wish to. Denies chest pain, SOB, palpitations, and bleeding on Eliquis. Review of Systems Cardiovascular: Positive for leg swelling (resolves by morning). Musculoskeletal: Positive for arthritis, back pain and joint pain. Neurological: Positive for light-headedness. All other systems reviewed and are negative. [facility] Progress note 11-19-2022 Note Date & Type Note Facility 11-19-2022 Note Cardiovascular Medic [facility] SUBJECTIVE Chief Complaint Patient presents with Atrial Fibrillation Hypertension Jenny Watt is a 72 y.o. female here for follow-up. HPI She states she has been doing well since last seen. Denies any changes. Her BYNUM and LE edema are unchanged. She denies c/o chest pain, dyspnea at rest, orthopnea, PND, dizziness/LH, bleeding issues. She has rare palpitations that are short lived. BP at home is improved with addition of carvedilol, running 130s/80s. Of note, her daughter who accompanied her today has a son named Manuel (I cared for him after his LVAD) is 2 years post heart transplant at [facility] and is doing well. Last HPI per Dr. Pulido: 10/31/21: Patient is s/p A. fib ablation on 08/09/2021 which required both PVI as well as posterior box isolation. She was also noted to have evidence of diastolic dysfunction. Patient has doing well and is in sinus rhythm today. EP study 08/09/2021 POST PROCEDURE DIAGNOSIS 1. Persistent atrial fibrillation s/p PVI (WACA) + Superior roof and Inferior line (posterior box isolation). 2. Atrial flutter s/p CTI ablation. 4. EP study revealing no retrograde accessory pathway. 5. Elevated LA filling pressures. EKG 10/31/2021 shows sinus rhythm with normal intervals 06/27/21 Patient was taken for cardioversion which was unsuccessful. She is still in atrial fibrillation and blood pressure is slightly high today. She is wanting to pursue weight loss while she waits for the ablation Prior HPI 69 y/o F who presents to clinic for consideration of possible watchman. She has a hx of a.fib. She notes that she thinks she has been in chronic a.fib for the past year. Denies any hx of cardioversion. She c/o feeling short of breath with any exertion. She gets palpitations as well with exertion. At rest she feels okay. Feels like her mobility is limited d/t her symptoms. C/o issues with her knees which also limits her mobility. Dx with KYLEE and has been on CPAP x 1 week. Denies any bleeding issues and has not trouble with NOAC. PMHx: a.fib; HTN, anxiety FMHx: father - [place]; sister - a.fib; father - a.fib Echocardiogram from 04/13/2020 reveals normal EF with intact atrial septum but moderate dilatation of left atrium and right atrium with trace mitral regurgitation. Holter monitor that was placed for 48 hours revealed evidence of chronic atrial fibrillation with the longest pause of 4.8 seconds in duration. She was also noted to have episodes as fast as 132 bpm when she was in A. fib with rapid ventricular rate. no symptoms noted with these long pauses. Patient Active Problem List Diagnosis Anxiety Hypertensive disorder Leukocytosis Persistent atrial fibrillation (CMS/HCC) Paroxysmal atrial fibrillation (CMS/HCC) Past Medical History: Diagnosis Date Abnormal ECG Arrhythmia Atrial fibrillation (CMS/HCC) Hypertension Hypothyroidism Paroxysmal atrial fibrillation (CMS/HCC) 05/15/2022 Sleep apnea Family History Problem Relation Name Age of Onset Heart attack Father Atrial fibrillation Father Atrial fibrillation Sister Social History Tobacco Use Smoking status: Former Types: Cigarettes Smokeless tobacco: Never Substance Use Topics Alcohol use: Not Currently No Known Allergies ROS Cardiovascular: Positive for leg swelling (resolves by morning). Musculoskeletal: Positive for arthritis, back pain and joint pain. Neurological: Positive for light-headedness. All other systems reviewed and are negative. OBJECTIVE Visit Vitals BP 157/86 (BP Location: Left wrist, Patient Position: Sitting) Pulse 86 Ht 1.702 m (5' 7 ) SpO2 96% BMI 46.99 kg/m??? Smoking Status Former BSA 2.54 m??? Medications: Current Outpatient Medications: apixaban (Eliquis) 5 mg tablet, Take 1 tablet by mouth in the morning and at bedtime., Disp: , Rfl: carvedilol (Coreg) 3.125 mg tablet, Take 1 tablet (3.125 mg) by mouth with breakfast and with evening meal., Disp: 180 tablet, Rfl: 3 dilTIAZem ER (Tiazac) 180 mg 24 hr capsule, Take 1 tablet by mouth in the morning., Disp: , Rfl: doxepin (SINEquan) 10 mg capsule, TAKE 1 CAPSULE BY MOUTH EVERY MORNING AND 2 CAPSULES BY MOUTH AT BEDTIME, Disp: , Rfl: irbesartan (Avapro) 300 mg tablet, Take 1 tablet by mouth in the morning., Disp: , Rfl: levothyroxine (Synthroid, Levoxyl) 50 mcg tablet, Take 1 tablet by mouth in the morning., Disp: , Rfl: omeprazole (PriLOSEC) [address] capsule, Take 1 tablet by mouth in the morning., Disp: , Rfl: amiodarone (Pacerone) 100 mg tablet, Take 1 tablet (100 mg) by mouth once daily as directed., Disp: 90 tablet, Rfl: 3 Physical Exam Vitals reviewed. Constitutional: Appearance: Normal appearance. She is obese. HENT: Head: Normocephalic and atraumatic. Right Ear: External ear normal. Left Ear: External ear normal. Eyes: Extraocular Movements (more content not included)... [facility] Clinical Note 06-14-2021 Note Date & Type Note Facility 06-14-2021 Note [place], [place] NAME: JENNY WATT DATE OF : MEDICAL REC#: [id number] [employer]ER: CASSIE DOMINGUEZ ADMIT DATE: 06/14/2021 08:37:00 NEUROSURGERY RESEARCH DIRECTOR DATE: 06/20/2021 08:00 DICTATING PHYSICIAN: CHARLI PULIDO DICTATION DATE: 06/14/2021 18:00 duplicate entry Electronically Authenticated and Edited by: Charli Pulido MD on 12/05/2021 07:50 PM EDT [place], [place] NAME: JENNY WATT A DATE OF : MEDICAL REC#: [id number] [employer] ASSEMBLER: CASSIE DOMINGUEZ ADMIT DATE: 06/14/2021 08:37:00 NEUROSURGERY RESEARCH DIRECTOR DATE: 06/20/2021 08:00 DICTATING PHYSICIAN: CHARLI PULIDO DICTATION DATE: 06/14/2021 18:00 OPERATIVE NOTE OPERATION DATE: 06-14-21 PROCEDURE NAME: Cardioversion. INDICATIONS: Atrial fibrillation. HISTORY: Ms. Watt is a 71 year-old lady with a history of atrial fibrillation who was known to have symptoms. Given this the patient was loaded with amiodarone and having persistent symptoms with anticoagulation for four weeks, the decision was made to proceed with cardioversion for going into ES. She has been on amiodarone anticoagulation. Versed __ mg and 37.5 mcg of fentanyl was given to achieve adequate sedation. The patches were placed in an anterior/posterior direction. 360 joules of Teller's cardioversion on two occasions did not convert the patient to sinus rhythm. Given that she could not be cardioverted the decision was made to not attempt again. Post cardioversion the patient remained in atrial fibrillation. RECOMMENDATIONS: 1. Continue anticoagulation. 2. Plan for catheter ablation for atrial fibrillation. Electronically Authenticated and Edited by: Charli Pulido MD on 12/05/2021 07:42 PM EDT I[facility] Signed and Approved by: CHARLI PULIDO 12/05/2021 19:42:00 [facility] Summary Purpose Family History No Family History Records FoundNo Family History Records FoundNo Family History Records Found Advance Directives No Advanced Directives Records FoundNo Advanced Directives Records FoundNo Advanced Directives Records Found Additional Source Comments INFORMATION SOURCE (unrecogn ized section and content) DATE CREATED AUTHOR 08/17/2021 [facility] DATE CREATED AUTHOR AUTHOR'S ORGANIZ ATION 05/19/2022 [facility] DATE CREATED AUTHOR AUTHOR'S ORGANIZ ATION 06/24/2023 [facility] FOR RECORDS PERTAINING TO PATIENTS WHO ARE OR HAVE BEEN ENROLLED IN A CHEMICAL DEPENDENCY/SUBSTANCEABUSE PROGRAM, SOME INFORMATION MAY BE OMITTED. This clinical summary was aggregated from multiple sources. Caution should be exercised in using it in the provision of clinical care. This summary normalizes information from multiple sources, and as a consequence, information in this document may materially change the coding, format and clinical context of patient data. In addition, data may be omitted in some cases. CLINICAL DECISIONS SHOULD BE BASED ON THE PRIMARY CLINICAL RECORDS. [facility]. provides no warranty or guarantee of the accuracy or completeness of information in this document.
--- NOTE | 2023-06-27 14:41 | CA_ITS ---
Patient Name: ANGIE WATT MR#: [id number] : 1950 Exam Date: 06/27/2023 Ordering Doctor: LISSA OLIVER ECHOCARDIOGRAM REPORT PROCEDURE: CA ECHO DOPPLER COMPLETE INDICATIONS: Atrial fibrillation resolved by ablation, hypertension COMPARISON: None. DESCRIPTION: COMPLETE ECHOCARDIOGRAM Real-time transthoracic echocardiography with 2D, M-mode, spectral and color flow Doppler performed. QUALITY: Technically difficult due to patient's condition. 64 , 310#, BSA 2.36 m2 LEFT VENTRICLE: Normal chamber size. Borderline left ventricular hypertrophy. LV EF: Global left ventricular systolic function is difficult to assess but appears preserved. Unable to assess regional wall motion abnormalities. Consider contrast study for better delineation of endocardial borders. DIASTOLIC: Normal diastolic function. ATRIAL SEPTUM: Inadequately seen. LEFT ATRIUM: Normal chamber size. RIGHT ATRIUM: Normal chamber size. RIGHT VENTRICLE: Poorly seen. Normal chamber size. Normal right ventricular systolic function. TRICUSPID VALVE: Normal mobility and thickness. No stenosis with no regurgitation. MITRAL VALVE: Normal mobility and thickness. No evidence of mitral valve stenosis. Mild mitral annular calcification. Trivial mitral regurgitation. AORTIC VALVE: Not well visualized. No evidence of aortic valve stenosis. No aortic regurgitation. AORTIC ROOT: Poorly seen. PULMONIC VALVE: Not well visualized. PERICARDIUM: No evidence of pericardial effusion. IVC: Collapses with inspirations. IVC is normal in size. CONCLUSION: 1. Global left ventricular systolic function is difficult to assess but appears preserved 2. Borderline left ventricular hypertrophy 3. The right ventricle is poorly seen; it appears normal in size and systolic function 4. Normal diastolic function 5. Valvular structures are poorly seen; no obvious valvular abnormalities Adult Echocardiography Procedure Report Left Ventricle LVEDD (3.7 - 5.6 cm): 4.37 cm LVESD (2.2 - 4.0 cm): 2.41 cm LVIVS thickness (0.6 - 1.2 cm): 0.85 cm LVPW thickness (0.5 - 1.0 cm): 1.11 cm e': 0.14 m/s E - e': 5.63 LVOT Max Gradient: 4.60 mm[Hg] LVOT Area (cm2): 1.07 m/s Peak Velocity (LVOT): 1.07 m/s Mean Velocity (LVOT): 0.62 m/s LVOT Diameter 2.39 cm Left Atrium LA Volume Index (2D A2C): 24.85 ml/m2 Left Atrium Systolic Dimension: 4.42 cm Mitral Valve MV E to A Ratio: 1.01 Mitral Valve A-Wave Peak Velocity: 0.80 m/s Mitral Valve E-Wave Peak Velocity: 0.81 m/s Right Ventricle Aorta AO Root Diam: 3.03 cm Ascending Ao Diam: 3.03 cm Aortic Valve AoV Area (Peak [place]): 2.97 cm2, 2.97 cm2 AoV Area (VTI): 2.70 cm2, 2.70 cm2 Peak Velocity(Antegrade Flow): 1.61 m/s Peak Gradient(Antegrade Flow): 10.43 mm[Hg] Mean Velocity(Antegrade Flow): 1.07 m/s Mean Gradient(Antegrade Flow): 5.25 mm[Hg] Velocity Time Integral: 32.54 cm Tricuspid Valve Pulmonic Valve Peak Velocity: 0.93 m/s Peak Gradient: 3.59 mm[Hg], 3.26 mm[Hg] Right Atrium Right Atrium Systolic Pressure: 27.90 ml, 27.90 ml Dictated by: Frederick Yip M.D. on 06/28/2023 at 15:22 Approved by: Frederick Yip M.D. on 06/28/2023 at 15:24
--- NOTE | 2023-06-27 14:48 | XR_ITS ---
The [address] [address] Patient Name: ANGIE WATT MRN: [id number] date: 1950 Sex: F Assigned Patient Location: CARD Current Patient Location: CARD Accession/Order Number: [id number] Exam Date: 06/27/2023 14:40 Report Date: 06/27/2023 15:05 At the request of: LISSA OLIVER Procedure: XR chest 2V PROCEDURE: XR chest 2V DATE: 06/27/2023 1:40 PM SALES DEVELOPMENT COORDINATOR COMPARISONS: 11/26/2022 CLINICAL INDICATION: 73 years Female longterm amio use Z79.899 FINDINGS: The cardiomediastinal silhouette and pulmonary vasculature are within normal limits. There is slight diffuse increased interstitial markings similar to previous exam. This may represent a small amount of chronic lung changes. There is no consolidating infiltrates to suggest pneumonia. There is some eventration of the right hemidiaphragm, stable. There is no evidence of pleural effusion or pneumothorax. XR/XR chest 2V IMPRESSION: There may be slight chronic lung changes similar to previous exam. There is no evidence of progressing chronic lung changes or other progressing lung parenchymal changes. Electronically authenticated by: DONALDO SOLIS Date: 06/27/2023 15:05
== END 2023-06-27 13:53 | disposition home or self-care (01) ==
LOC: CARD 13:53
PROVIDERS: PCP Family Medicine; Visit Provider Nurse Practitioner
DX: Z79.899 Other long term (current) drug therapy (principal); I48.19 Other persistent atrial fibrillation
CPT/HCPCS: 71046; 93306

== ENCOUNTER 2023-11-19 15:40 | Emergency (ER) | payer MEDICARE, OTHER, SELFPAY ==
[2023-11-19 15:57] VITALS: BP 123/72; PULSE 63; TEMP 36.8; O2SAT 96; BMI 48.4
--- NOTE | 2023-11-19 16:05 | CT_ITS ---
The [address] [address] Patient Name: ANGIE WATT MRN: [id number] date: 1950 Sex: F Assigned Patient Location: ER Current Patient Location: Accession/Order Number: [id number] Exam Date: 11/19/2023 18:40 Report Date: 11/19/2023 20:27 At the request of: BENITEZ MELGOZA Procedure: CT abdomen pelvis w con Indication: Abdominal pain. Nausea. Vomiting. Comparison: None Procedure: Axial images were made from the diaphragms through the symphysis pubis. No oral contrast was given prior to scanning. 100 mL Omnipaque 300 Intravenous contrast was given. Dose reduction techniques were achieved by using automated exposure control and/or adjustment of mA and/or kV according to patient size and/or use of iterative reconstruction technique. Findings: Liver/Biliary System: A 6 mm hypodensity in left lobe of the liver, probably cyst. No liver masses. No intra or extrahepatic biliary dilatation. Status post cholecystectomy. Pancreas/Spleen: No evidence of acute pancreatitis. Pancreatic duct is not dilated. No pancreatic lesions are seen. No splenomegaly or splenic masses. Kidneys/Adrenals: Normal symmetrical nephrograms. No renal masses. A 1.4 cm right renal cyst. No renal or ureteral stones are seen. No hydronephrosis or hydroureter bilaterally. No adrenal nodules. Aorta/Vessels: Small infrarenal abdominal aortic aneurysm measuring 3.7 cm. Patent IVC, renal veins, hepatic veins and portal venous system. Bowel/Fluid/Nodes: Sigmoid diverticulosis with sigmoid wall thickening and perisigmoid fat stranding suggestive of sigmoid diverticulitis. Proximal to the sigmoid diverticulitis the colon is diffuse distended thin-walled featureless and filled with fluid concerning for toxic megacolon, although another possibility is Mckean's syndrome. Please correlate clinically. Ascending colon diameter measures up to 8.5 cm. No fluid collections are seen. No free air present. No small bowel dilatation or small bowel wall thickening. No evidence of small bowel obstruction. Normal appendix. No ascites. No adenopathy. Lung bases: Clear. Other findings: No aggressive osseous lesions are seen. Pelvis: No pelvic masses or adenopathy. Left common iliac artery aneurysm measuring 2.5 cm. No free fluid seen in the pelvis. Bladder, uterus and adnexa are unremarkable.. Other Findings: No aggressive osseous lesions are seen. 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/CT abdomen pelvis w con Impression: 1. Evidence of acute sigmoid diverticulitis seen as sigmoid diverticulosis, sigmoid wall thickening and perisigmoid fat stranding. No fluid collections or free air present. 2. Proximal to the sigmoid diverticulitis, the colon is diffuse distended thin-walled featureless and is filled with fluid concerning for toxic megacolon, although another possibility is Matthew's syndrome. Please correlate clinically. Ascending colon diameter measures up to 8.5 cm. 3. A 3.7 cm abdominal aortic aneurysm. A 2.5 cm left common iliac artery aneurysm. 4. Small hepatic and right renal cysts. 5. 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 Electronically authenticated by: VA WILKINSON Date: 11/19/2023 20:27
--- NOTE | 2023-11-19 16:15 | ED.GENADUL1 ---
HPI HPI - General Adult General Chief complaint: Nausea/Vomiting/Diarrhea Stated complaint: Nausea/Vomiting/Diarrhea Time Seen by Provider: 11/19/23 16:00 Source: patient Mode of arrival: walk-in History of Present Illness HPI narrative: Patient is a 73-year-old female with a history of previous cholecystectomy who presents to the emergency department for a 3 to 4-day history of left upper quadrant and epigastric abdominal pain. She states she has a history of pancreatitis and this is her primary concern. She states she has a history of constipation and has not had a bowel movement for 4 days although she had a small bowel movement this morning. She states she takes multiple medications that cause her to be constipated. She has not had any blood in her stool, flank or back pain. She states she feels nauseous but has not had fevers, vomiting, upper respiratory symptoms. Related Data Home Medications ?Medication ?Instructions ?Recorded ?Confirmed amiodarone 100 mg tablet 100 mg PO Q24H 11/19/23 11/19/23 apixaban 5 mg tablet (Eliquis) 5 mg PO Q12H 11/19/23 11/19/23 carvedilol 6.25 mg tablet 6.25 mg PO Q12H 11/19/23 11/19/23 diltiazem HCl 180 mg capsule,24 180 mg PO Q24H 11/19/23 11/19/23 hr,extended release (Tiadylt ER) doxepin 25 mg capsule 50 mg PO .pm 11/19/23 11/19/23 irbesartan 300 mg tablet 300 mg PO DAILY 11/19/23 11/19/23 levothyroxine 50 mcg tablet 50 mcg PO DAILY 11/19/23 11/19/23 omeprazole 40 mg capsule,delayed 40 mg PO DAILY 11/19/23 11/19/23 release Allergies Allergy/AdvReac Type Severity Reaction Status Date / Time No Known Drug Allergies Allergy Verified 11/19/23 16:02 Opioid HPI Opioid Management Most Recent Opioid Data: Last Pain Scale 9 11/19/23 16:38 Last MAR Pain Assessment 11/19/23 16:38 Review of Systems ROS Constitutional Denies: fever or chills Ears, nose, mouth, and throat Denies: throat pain or nasal congestion Cardiovascular Denies: chest pain Respiratory Denies: shortness of breath Gastrointestinal Reports: abdominal pain, nausea and constipation; Denies: vomiting or diarrhea Musculoskeletal Denies: back pain or neck pain Integumentary/Breast Denies: rash Hematologic/Lymphatic Denies: easy bruising or easy bleeding Exam Narrative Exam Narrative: Gen.: Awake, alert, in no distress Head: Normocephalic, atraumatic ENT: Moist mucous membranes Respiratory: No respiratory distress, lungs clear bilaterally Cardio: Regular rate and rhythm Gastrointestinal: Abdomen is Firm but not rigid, obese. No significant tenderness to palpation, no guarding or rebound Extremities: Moves extremities equally Psych: Normal mood and affect Neuro: No focal neuro deficit Skin: Warm, dry, intact Constitutional Vital Signs, click to edit/add: Last Vital Signs Temp 98.3 F 11/19/23 15:57 Pulse 64 11/19/23 21:50 Resp 15 11/19/23 21:50 BP 135/76 11/19/23 21:50 Pulse Ox 97 11/19/23 21:50 O2 Del Method Room Air 11/19/23 21:50 Course Vital Signs Vital signs: Vital Signs Temperature 98.3 F 11/19/23 15:57 Pulse Rate 63 11/19/23 15:57 Respiratory Rate 20 11/19/23 15:57 Blood Pressure 123/72 11/19/23 15:57 Pulse Oximetry 96 11/19/23 15:57 Oxygen Delivery Method Room Air 11/19/23 15:57 Temperature 98.3 F 11/19/23 15:57 Pulse Rate 64 11/19/23 21:50 Respiratory Rate 15 11/19/23 21:50 Blood Pressure 135/76 11/19/23 21:50 Pulse Oximetry 97 11/19/23 21:50 Oxygen Delivery Method Room Air 11/19/23 21:50 Medical Decision Making MDM Narrative Medical decision making narrative: Patient was medicated for pain in the ER with labs and urine specimen obtained. Overall these labs are unremarkable, CT of the abdomen and pelvis shows acute sigmoid diverticulitis. The colon is dilated proximal to the sigmoid diverticulitis concerning for toxic megacolon versus [place] syndrome. I discussed this with our general surgeon, Dr. Nguyen, Who requested that the patient be transferred to a facility with a GI specialist for decompression versus neostigmine treatment. Discussed transfer to local facilities, it was requested that the patient be transferred to a larger facility with colorectal surgery. There are delayed transfer times to multiple facilities, patient request transfer to [facility]. She was given IV Cipro and Flagyl for antibiotic coverage of the sigmoid diverticulitis. 3: Patient Was accepted by Dr. Mason for transfer to [facility]. He accepted the patient to his service. She is stable at time of transfer. Critical care time 35 minutes. Medical Records Medical records reviewed: Yes I reviewed the patient's medical records Lab Data Lab results reviewed: Yes I reviewed the patient's lab results Labs: Lab Results 11/19/23 11/19/23 Range/Units 16:38 19:33 WBC 9.0 (4.0-11.0) 10^3/uL RBC 4.27 (4.20-5.40) 10^6/uL Hgb 11.7 L (12.0-16.0) g/dL Hct 37.2 (36.0-48.0) % MCV 87.1 (81.0-99.0) fL MCH 27.4 (26.7-34.0) pg MCHC 31.5 (29.9-35.2) g/dL RDW 15.7 H (11.0-15.0) % Plt Count 372 (150-450) 10^3/uL MPV 10.2 (9.5-13.5) fL Neut % (Auto) 84.9 H (43.0-75.0) % Lymph % (Auto) 9.4 L (20.5-60.0) % [place] % (Auto) 4.9 (1.7-12.0) % Eos % (Auto) 0.3 L (0.9-7.0) % Baso % (Auto) 0.2 (0.2-2.0) % Neut # (Auto) 7.6 H (1.4-6.5) 10^3/uL Lymph # (Auto) 0.8 L (1.2-3.8) 10^3/uL [place] # (Auto) 0.4 (0.3-0.8) 10^3/uL Eos # (Auto) 0.0 (0.0-0.7) 10^3/uL Baso # (Auto) 0.0 (0.0-0.1) 10^3/uL Abs Immat Gran (auto) 0.03 (0.00-0.03) 10^3/uL Imm/Tot Granulo (auto) 0.3 (0.0-0.5) % Sodium 134 L (136-145) mmol/L Potassium 4.1 (3.5-5.1) mmol/L Chloride 98 (98-107) mmol/L Carbon Dioxide 26.6 (21.0-32.0) mmol/L Anion Gap 13.5 BUN 13.0 (7.0-18.0) mg/dL Creatinine 0.96 (0.55-1.02) mg/dL Est GFR ( Amer) >60 (>=60) Est GFR (Non-Af Amer) 57 L (>=60) BUN/Creatinine Ratio 13.5 Glucose 140 H (74-106) mg/dL Lactate 1.5 (0.4-2.0) mmol/L Calcium 9.4 (8.5-10.1) mg/dL Total Bilirubin 0.7 (0.2-1.0) mg/dL AST 17 (15-37) U/L ALT 19 (14-59) U/L Alkaline Phosphatase 138 H (46-116) U/L Troponin I High Sens <4.0 L (4.0-51.3) pg/mL Total Protein 8.0 (6.4-8.2) g/dL Albumin 3.4 (3.4-5.0) g/dL Globulin 4.6 g/dL Albumin/Globulin Ratio 0.7 Lipase 18.0 (16.0-77.0) U/L Urine Color Yellow (YELLOW) Urine Clarity Clear (CLEAR) Urine pH 6.0 (5.0-9.0) Ur Specific [place] 1.015 (1.005-1.025) Urine Protein Negative (NEG/TRACE) mg/dL Urine Glucose (UA) Negative (NEGATIVE) mg/dL Urine Ketones Trace A (NEGATIVE) mg/dL Urine Occult Blood Negative (NEGATIVE) Urine Nitrite Negative (NEGATIVE) Urine Bilirubin Negative (NEGATIVE) Urine Urobilinogen 1.0 (0.2-1.0) EU/dL Ur Leukocyte Esterase Negative (NEGATIVE) Imaging Data CT scan - abdomen: Attestation: I have reviewed the pertinent imaging results. Radiologist's impression: ITS Impressions Abdomen/Pelvis CT 11/19/23 16:05 Impression: 1. Evidence of acute sigmoid diverticulitis seen as sigmoid diverticulosis, sigmoid wall thickening and perisigmoid fat stranding. No fluid collections or free air present. 2. Proximal to the sigmoid diverticulitis, the colon is diffuse distended thin-walled featureless and is filled with fluid concerning for toxic megacolon, although another possibility is [place]'s syndrome. Please correlate clinically. Ascending colon diameter measures up to 8.5 cm. 3. A 3.7 cm abdominal aortic aneurysm. A 2.5 cm left common iliac artery aneurysm. 4. Small hepatic and right renal cysts. 5. 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 Electronically authenticated by: VA WILKINSON Date: 11/19/2023 20:27 ECG Data Attestation: I personally reviewed and interpreted this ECG as follows: (Normal sinus rhythm at a rate of 59, first-degree AV block with no acute ST elevation or ectopy. EKG reviewed by attending physician) Discharge Plan Discharge Chief Complaint: Nausea/Vomiting/Diarrhea Clinical Impression: Abdominal pain, Acute diverticulitis, Toxic megacolon Patient Disposition: [facility] Time of Disposition Decision: 22:26 Discharge Location: [facility] Condition: Good Mode of Transportation: EMS
--- NOTE | 2023-11-19 16:17 | ECG_ITS ---
The [facility] Test Date: 2023-11-19 Pat Name: ANGIE WATT Department: Room: - Gender: Female Director Oncology: : 1950 Requested By: KERRI NOLAND Order Number: [id number] Reading MD: PAWEL NICOLE Measurements Intervals [place] Rate: 59 P: 72 [place]: 238 QRS: 25 QRSD: 88 T: 24 QT: 446 QTc: 445 Interpretive Statements 1100 Sinus rhythm 2231 First degree AV block 4068 Nonspecific Twave abnormality 8102 Low QRS voltage in chest leads 9150 abnormal ECG Compared to ECG 06/14/2021 11:32:40 First degree AV block now present Atrial fibrillation no longer present Electronically Signed On 11-21-2023 21:21:57 EDT by PAWEL NICOLE
[2023-11-19] MEDS: 0.9 % SODIUM CHLORIDE 1,000 ML 999 ML IV (16:24)
[2023-11-19] MEDS: ONDANSETRON PF 4 MG/2 ML VIAL IV (16:25)
[2023-11-19] MEDS: PANTOPRAZOLE SODIUM 40 MG VIAL IV (16:26)
[2023-11-19] MEDS: FENTANYL CITRATE/PF 100 MCG/2 ML VIAL 50 MCG IV (16:38)
[2023-11-19 17:15] LABS: Basophils Percent Auto 0.2 % (0.2-2.0); Eosinophils Percent Auto 0.3 % (0.9-7.0); Hematocrit 37.2 % (36.0-48.0); Hemoglobin 11.7 g/dL (12.0-16.0); Immature Granulocytes Abs Auto 0.03 10^3/uL (0.00-0.03); Immature Granulocytes Pct Auto 0.3 % (0.0-0.5); Lymphocytes Absolute Auto 0.8 10^3/uL (1.2-3.8); Lymphocytes Percent Auto 9.4 % (20.5-60.0); Mean Corpuscular HGB Conc 31.5 g/dL (29.9-35.2); Mean Corpuscular Hemoglobin 27.4 pg (26.7-34.0); Mean Corpuscular Volume 87.1 fL (81.0-99.0); Mean Platelet Volume 10.2 fL (9.5-13.5); Monocytes Absolute Auto 0.4 10^3/uL (0.3-0.8); Monocytes Percent Auto 4.9 % (1.7-12.0); Neutrophils Absolute Auto 7.6 10^3/uL (1.4-6.5); Neutrophils Percent Auto 84.9 % (43.0-75.0); Platelet Count 372 10^3/uL (150-450); Red Blood Count 4.27 10^6/uL (4.20-5.40); Red Cell Distribution Width 15.7 % (11.0-15.0)
[2023-11-19 17:35] LABS: Alanine Aminotransferase 19 U/L (14-59); Albumin Globulin Ratio 0.7; Albumin Level 3.4 g/dL (3.4-5.0); Alkaline Phosphatase 138 U/L (46-116); Anion Gap 13.5; Aspartate Amino Transferase 17 U/L (15-37); BUN Creatinine Ratio 13.5; Bilirubin Total 0.7 mg/dL (0.2-1.0); Calcium 9.4 mg/dL (8.5-10.1); Carbon Dioxide 26.6 mmol/L (21.0-32.0); Chloride 98 mmol/L (98-107); Estimated GFR (African America >60 (>=60); Estimated GFR (Non-African Ame 57 (>=60); Globulin 4.6 g/dL; Glucose 140 mg/dL (74-106); Potassium 4.1 mmol/L (3.5-5.1); Sodium 134 mmol/L (136-145)
[2023-11-19 17:38] LABS: Lactate/Lactic Acid 1.5 mmol/L (0.4-2.0)
[2023-11-19 17:51] VITALS: BP 120/62; PULSE 58; O2SAT 95
[2023-11-19 18:23] LABS: Troponin I High Sensitivity <4.0 pg/mL (4.0-51.3)
[2023-11-19 19:41] LABS: Bilirubin Urine NEGATIVE (NEGATIVE); Blood Urine NEGATIVE (NEGATIVE); Clarity Urine CLEAR (CLEAR); Color Urine YELLOW (YELLOW); Glucose Urine UA NEGATIVE (NEGATIVE); Ketones Urine TRACE mg/dL (NEGATIVE); Leukocyte Esterase Urine NEGATIVE (NEGATIVE); Nitrite Urine NEGATIVE (NEGATIVE); Protein Urine NEGATIVE (NEG/TRACE); Specific Gravity Urine 1.015 (1.005-1.025)
[2023-11-19 19:42] LABS: Urine Microscopic Indicated NO
[2023-11-19] MEDS: CIPROFLOXACIN IN 5 % DEXTROSE 400 MG/200 ML PIGGYBACK 200 MG IV (21:37)
[2023-11-19] MEDS: METRONIDAZOLE/SODIUM CHLORIDE 500 MG/100 ML PREMIX 100 MG IV (21:37)
[2023-11-19 21:50] VITALS: BP 135/76; PULSE 64; O2SAT 97
[2023-11-20] MEDS: ONDANSETRON PF 4 MG/2 ML VIAL IV (00:32)
[2023-11-20] MEDS: PROMETHAZINE HCL 12.5 MG in 0.9 % SODIUM CHLORIDE 50 ML 202 MG IV (02:39)
[2023-11-20 04:09] VITALS: BP 142/78; PULSE 73; O2SAT 98
[2023-11-20] MEDS: METOCLOPRAMIDE HCL 10 MG/2 ML VIAL IVP (04:54)
[2023-11-20] MEDS: METRONIDAZOLE/SODIUM CHLORIDE 500 MG/100 ML PREMIX 100 MG IV (04:59)
== END 2023-11-20 06:14 | disposition short-term general hospital (02) ==
PROVIDERS: Physician Assistant; Emergency Provider Emergency Medicine; PCP Family Medicine
DX: K57.32 Diverticulitis of large intestine without perforation or abscess without bleeding (principal); K59.31 Toxic megacolon; R10.9 Unspecified abdominal pain; Z90.49 Acquired absence of other specified parts of digestive tract; E66.9 Obesity, unspecified; Z68.42 Body mass index [BMI] 45.0-49.9, adult
CPT/HCPCS: 36415; 74177; 80053; 81003; 83605; 83690; 84484; 85025; 93005; 96365; 96367; 96368; 96375; 96376; 99285; Q9967

== ENCOUNTER 2023-12-25 10:47 | Observation (INO) | payer MEDICARE, OTHER, SELFPAY ==
[2023-12-25] VITALS (7 sets, daily range): BP systolic 123–183; BP diastolic 73–93; PULSE 70–80; TEMP 36.7–37.1; O2SAT 93–97; BMI 46.7; BMI 46.4
--- NOTE | 2023-12-25 11:42 | CT_ITS ---
[address] [address] Patient Name: ANGIE WATT MRN: [id number] date: 1950 Sex: F Assigned Patient Location: ER Current Patient Location: ER Accession/Order Number: [id number] Exam Date: 12/25/2023 12:20 Report Date: 12/25/2023 12:54 At the request of: MANDO REDDY Procedure: CT abdomen pelvis w con EXAMINATION: CT abdomen pelvis w con HISTORY: diverticulitis COMPARISON: 11/19/2023 TECHNIQUE: CT images were created with IV contrast. Axial, Coronal, and Sagittal images. Dose reduction techniques were achieved by using automated exposure control and/or adjustment of mA and/or kV according to patient size and/or use of iterative reconstruction technique. FINDINGS: LUNG BASES: No visible pulmonary or pleural disease. LIVER: No enlargement, atrophy, abnormal density, or significant focal lesion. BILIARY: The gallbladder is absent PANCREAS: Moderate diffuse atrophy SPLEEN: No enlargement or focal lesion. ADRENALS: No mass or enlargement. KIDNEYS: No mass, obstruction, or calcification. BOWEL/MESENTERY: Concentric wall thickening involving the distal descending and proximal sigmoid colon measuring up to 1.3 cm with some surrounding mesenteric stranding. Mild colonic diverticulosis. There appears to be significant narrowing of the bowel at this point with collapse of the distal sigmoid colon and rectum with fluid filling and distention of the proximal small and large bowel loops as well as the stomach. AORTA/VASCULAR: Fusiform aneurysm of the infrarenal abdominal aorta measuring up to 3.9 cm axial image #61. Aneurysm of the left common iliac artery which measures up to 3.3 cm. Mild to moderate calcific atherosclerosis RETROPERITONEUM: No mass or adenopathy. LYMPH NODES: No adenopathy. URINARY BLADDER: No visible focal wall thickening, lesion, or calculus. PELVIC ORGANS: No visible mass. Pelvic organs appropriate for patient age. ABDOMINAL WALL: 2 cm umbilical hernia containing fat and a small amount of fluid, nonspecific BONES: 1.7 cm anterolisthesis of L4 in relation to L5 with bilateral L4 pars interarticularis fractures. This results in moderate bilateral foraminal stenosis. OTHER: Negative. CT/CT abdomen pelvis w con IMPRESSION: Concentric wall thickening and inflammatory changes at the junction of the descending and sigmoid colon. This could represent colitis/diverticulitis or a focal mass. This appears to result in significant stenosis with proximal small and large bowel dilatation 3.9 cm distal aorta and 3.3 cm left common iliac artery aneurysms Electronically authenticated by: MARIEL MONROE Date: 12/25/2023 12:54
[2023-12-25] MEDS: 0.9 % SODIUM CHLORIDE 1,000 ML 999 ML IV (11:48)
[2023-12-25] MEDS: ONDANSETRON PF 4 MG/2 ML VIAL IV (11:48)
[2023-12-25 11:50] LABS: Basophils Percent Auto 0.1 % (0.2-2.0); Eosinophils Percent Auto 0.2 % (0.9-7.0); Hematocrit 37.6 % (36.0-48.0); Hemoglobin 11.9 g/dL (12.0-16.0); Immature Granulocytes Abs Auto 0.04 10^3/uL (0.00-0.03); Immature Granulocytes Pct Auto 0.4 % (0.0-0.5); Lymphocytes Absolute Auto 0.9 10^3/uL (1.2-3.8); Lymphocytes Percent Auto 8.6 % (20.5-60.0); Mean Corpuscular HGB Conc 31.6 g/dL (29.9-35.2); Mean Corpuscular Hemoglobin 27.3 pg (26.7-34.0); Mean Corpuscular Volume 86.2 fL (81.0-99.0); Mean Platelet Volume 10.5 fL (9.5-13.5); Monocytes Absolute Auto 0.8 10^3/uL (0.3-0.8); Monocytes Percent Auto 7.4 % (1.7-12.0); Neutrophils Absolute Auto 8.7 10^3/uL (1.4-6.5); Neutrophils Percent Auto 83.3 % (43.0-75.0); Platelet Count 403 10^3/uL (150-450); Red Blood Count 4.36 10^6/uL (4.20-5.40); Red Cell Distribution Width 16.2 % (11.0-15.0); White Blood Count 10.4 10^3/uL (4.0-11.0)
[2023-12-25 12:08] LABS: Alanine Aminotransferase 19 U/L (14-59); Albumin Globulin Ratio 0.7; Albumin Level 3.2 g/dL (3.4-5.0); Alkaline Phosphatase 138 U/L (46-116); Anion Gap 10.7; Aspartate Amino Transferase 16 U/L (15-37); Bilirubin Total 0.9 mg/dL (0.2-1.0); Calcium 9.4 mg/dL (8.5-10.1); Carbon Dioxide 28.8 mmol/L (21.0-32.0); Chloride 100 mmol/L (98-107); Estimated GFR (African America >60 (>=60); Estimated GFR (Non-African Ame >60 (>=60); Globulin 4.8 g/dL; Glucose 126 mg/dL (74-106); Potassium 3.5 mmol/L (3.5-5.1); Sodium 136 mmol/L (136-145)
--- NOTE | 2023-12-25 12:44 | ED.GENADUL1 ---
HPI HPI - General Adult General Chief complaint: Nausea/Vomiting/Diarrhea Stated complaint: NAUSEA, CONSTIPATION Time Seen by Provider: 12/25/23 11:00 Source: patient Mode of arrival: walk-in Limitations: no limitations History of Present Illness HPI narrative: Patient presents to ED complaining of abdominal pain. She was here recently and diagnosed with diverticulitis versus toxic megacolon. She was sent up to [facility] for further management. She said she had antibiotics for few days and they sent her back home. No surgical intervention. Patient reports that she has been nauseous with some vomiting and abdominal discomfort. She also reports no bowel movement in the past few days. She did report that she has been passing gas. No fevers but did report chills. Denies passing blood, no UTI symptoms. She reports that she has been able to eat. Vital signs stable, mildly hypertensive Related Data Home Medications ?Medication ?Instructions ?Recorded ?Confirmed amiodarone 100 mg tablet 100 mg PO Q24H 11/19/23 12/25/23 apixaban 5 mg tablet (Eliquis) 5 mg PO Q12H 11/19/23 12/25/23 carvedilol 6.25 mg tablet 6.25 mg PO Q12H 11/19/23 12/25/23 diltiazem HCl 180 mg capsule,24 180 mg PO Q24H 11/19/23 12/25/23 hr,extended release (Tiadylt ER) doxepin 25 mg capsule 50 mg PO .pm 11/19/23 12/25/23 irbesartan 300 mg tablet 300 mg PO DAILY 11/19/23 12/25/23 levothyroxine 50 mcg tablet 50 mcg PO DAILY 11/19/23 12/25/23 omeprazole 40 mg capsule,delayed 40 mg PO DAILY 11/19/23 12/25/23 release linaclotide 72 mcg capsule 72 mcg PO DAILY 12/25/23 12/25/23 (Linzess) Allergies Allergy/AdvReac Type Severity Reaction Status Date / Time No Known Drug Allergies Allergy Verified 11/19/23 16:02 Opioid HPI Opioid Management Most Recent Opioid Data: Last Pain Scale 9 11/19/23 16:38 Review of Systems ROS Status of ROS 10 or more systems reviewed and unremarkable except as noted in history and below Exam Narrative Exam Narrative: Time Seen: [] Vital Signs: [Per nurse's notes.] General: [Alert] Skin: [Warm, dry, no rash.] Head: [Normocephalic, atraumatic.] Neck: [Supple, trachea midline.] Eye: [Pupils are equal, round and reactive to light, extraocular movements are intact, normal conjunctiva.] Ears, nose, mouth and throat: oral mucosa moist. Cardiovascular: [Regular rate and rhythm, no murmur.] Respiratory: [Lungs are clear to auscultation, respirations are non-labored, breath sounds are equal.] Chest wall: [No tenderness, no deformity.] Gastrointestinal: [Soft, Mild diffuse tenderness no peritoneal signs no guarding. Tenderness worse in the left lower quadrant non distended, normal bowel sounds.] MSK: 5 out of 5 muscle strength x 4 extremities no calf pain or edema Lymphatics: [No lymphadenopathy.] Psychiatric: [Cooperative, appropriate mood & affect.] Neurological: [Alert and oriented to person, place, time, and situation, no focal neurological deficit observed.] Constitutional Vital Signs, click to edit/add: Last Vital Signs Temp 98.0 F 12/25/23 10:51 Pulse 80 12/25/23 10:51 Resp 18 12/25/23 10:51 BP 183/93 H 12/25/23 10:51 Pulse Ox 97 12/25/23 10:51 O2 Del Method Room Air 12/25/23 10:51 Course Vital Signs Vital signs: Vital Signs Temperature 98.0 F 12/25/23 10:51 Pulse Rate 80 12/25/23 10:51 Respiratory Rate 18 12/25/23 10:51 Blood Pressure 183/93 H 12/25/23 10:51 Pulse Oximetry 97 12/25/23 10:51 Oxygen Delivery Method Room Air 12/25/23 10:51 Temperature 98.0 F 12/25/23 10:51 Pulse Rate 80 12/25/23 10:51 Respiratory Rate 18 12/25/23 10:51 Blood Pressure 183/93 H 12/25/23 10:51 Pulse Oximetry 97 12/25/23 10:51 Oxygen Delivery Method Room Air 12/25/23 10:51 Medical Decision Making MDM Narrative Medical decision making narrative: Patient CT scan shows inflammation consistent with diverticulitis versus colitis or mass. Apparently she only had 3 or 4 days of antibiotics and needs more of a full treatment for diverticulitis. Patient is nauseous and having dry heaves and vomiting. She has decreased stool output and decreased passing gas. Given the stenosis on her CT scan I am concerned for this turning into a bowel obstruction. Patient will be admitted for IV antibiotics so that she can keep the antibiotics down and decrease inflammation. IV fluids and IV nausea and pain control. I spoke to Dr. Smith who agrees with the care plan. Patient is comfortable care plan for admission. Differential Diagnosis Differential Diagnosis: Bowel obstruction, diverticulitis, mass, colitis Medical Records Medical records reviewed: Yes I reviewed the patient's medical records Lab Data Lab results reviewed: Yes I reviewed the patient's lab results Labs: Lab Results 12/25/23 12/25/23 Range/Units 11:00 12:54 WBC 10.4 (4.0-11.0) 10^3/uL RBC 4.36 (4.20-5.40) 10^6/uL Hgb 11.9 L (12.0-16.0) g/dL Hct 37.6 (36.0-48.0) % MCV 86.2 (81.0-99.0) fL MCH 27.3 (26.7-34.0) pg MCHC 31.6 (29.9-35.2) g/dL RDW 16.2 H (11.0-15.0) % Plt Count 403 (150-450) 10^3/uL MPV 10.5 (9.5-13.5) fL Neut % (Auto) 83.3 H (43.0-75.0) % Lymph % (Auto) 8.6 L (20.5-60.0) % [place] % (Auto) 7.4 (1.7-12.0) % Eos % (Auto) 0.2 L (0.9-7.0) % Baso % (Auto) 0.1 L (0.2-2.0) % Neut # (Auto) 8.7 H (1.4-6.5) 10^3/uL Lymph # (Auto) 0.9 L (1.2-3.8) 10^3/uL [place] # (Auto) 0.8 (0.3-0.8) 10^3/uL Eos # (Auto) 0.0 (0.0-0.7) 10^3/uL Baso # (Auto) 0.0 (0.0-0.1) 10^3/uL Abs Immat Gran (auto) 0.04 H (0.00-0.03) 10^3/uL Imm/Tot Granulo (auto) 0.4 (0.0-0.5) % Sodium 136 (136-145) mmol/L Potassium 3.5 (3.5-5.1) mmol/L Chloride 100 (98-107) mmol/L Carbon Dioxide 28.8 (21.0-32.0) mmol/L Anion Gap 10.7 BUN 12.0 (7.0-18.0) mg/dL Creatinine 0.86 (0.55-1.02) mg/dL Est GFR ( Amer) >60 (>=60) Est GFR (Non-Af Amer) >60 (>=60) BUN/Creatinine Ratio 14.0 Glucose 126 H (74-106) mg/dL Calcium 9.4 (8.5-10.1) mg/dL Total Bilirubin 0.9 (0.2-1.0) mg/dL AST 16 (15-37) U/L ALT 19 (14-59) U/L Alkaline Phosphatase 138 H (46-116) U/L Total Protein 8.0 (6.4-8.2) g/dL Albumin 3.2 L (3.4-5.0) g/dL Globulin 4.8 g/dL Albumin/Globulin Ratio 0.7 Urine Color Lt. yellow (YELLOW) Urine Clarity Clear (CLEAR) Urine pH 6.5 (5.0-9.0) Ur Specific [place] <=1.005 A (1.005-1.025) Urine Protein Negative (NEG/TRACE) mg/dL Urine Glucose (UA) Negative (NEGATIVE) mg/dL Urine Ketones Negative (NEGATIVE) mg/dL Urine Occult Blood Negative (NEGATIVE) Urine Nitrite Negative (NEGATIVE) Urine Bilirubin Negative (NEGATIVE) Urine Urobilinogen 1.0 (0.2-1.0) EU/dL Ur Leukocyte Esterase Negative (NEGATIVE) Imaging Data CT scan - abdomen: Radiologist's impression: ITS Impressions Abdomen/Pelvis CT 12/25/23 11:42 IMPRESSION: Concentric wall thickening and inflammatory changes at the junction of the descending and sigmoid colon. This could represent colitis/diverticulitis or a focal mass. This appears to result in significant stenosis with proximal small and large bowel dilatation 3.9 cm distal aorta and 3.3 cm left common iliac artery aneurysms Electronically authenticated by: MARIEL MONROE Date: 12/25/2023 12:54 Discharge Plan Discharge Chief Complaint: Nausea/Vomiting/Diarrhea Clinical Impression: Acute diverticulitis Patient Disposition: Admitted As Inpatient Time of Disposition Decision: 13:56 Condition: Fair Prescriptions / Home Meds: No Action amiodarone 100 mg tablet 100 mg PO Q24H Eliquis 5 mg tablet 5 mg PO Q12H carvedilol 6.25 mg tablet 6.25 mg PO Q12H diltiazem HCl [Tiadylt ER] 180 mg capsule,extended release 24 hr 180 mg PO Q24H doxepin 25 mg capsule 50 mg PO .pm irbesartan 300 mg tablet 300 mg PO DAILY levothyroxine 50 mcg tablet 50 mcg PO DAILY omeprazole 40 mg capsule,delayed release(DR/EC) 40 mg PO DAILY Print Language: Urdu Referrals: Lele Smith MD [Primary Care Provider] - 1 week
[2023-12-25 13:23] LABS: Bilirubin Urine NEGATIVE (NEGATIVE); Blood Urine NEGATIVE (NEGATIVE); Clarity Urine CLEAR (CLEAR); Color Urine LT. YELLOW (YELLOW); Glucose Urine UA NEGATIVE (NEGATIVE); Ketones Urine NEGATIVE (NEGATIVE); Leukocyte Esterase Urine NEGATIVE (NEGATIVE); Nitrite Urine NEGATIVE (NEGATIVE); Protein Urine NEGATIVE (NEG/TRACE); Specific Gravity Urine <=1.005 (1.005-1.025); pH Urine 6.5 (5.0-9.0)
[2023-12-25 13:24] LABS: Urine Microscopic Indicated NO
[2023-12-25] MEDS: METRONIDAZOLE/SODIUM CHLORIDE 500 MG/100 ML PREMIX 100 MG IV ×2 (13:49→21:26)
[2023-12-25] MEDS: DIPHENHYDRAMINE HCL 50 MG/ML VIAL 25 MG IV (14:06)
[2023-12-25] MEDS: METOCLOPRAMIDE HCL 10 MG/2 ML VIAL IVP (14:07)
[2023-12-25] MEDS: CIPROFLOXACIN IN 5 % DEXTROSE 400 MG/200 ML PIGGYBACK 200 MG IV (15:30)
[2023-12-25] MEDS: OMEPRAZOLE 40 MG CAPSULE.DR PO (17:48)
[2023-12-25] MEDS: HYOSCYAMINE SULFATE 0.125 MG TAB.SUBL SL ×2 (17:48→21:25)
--- NOTE | 2023-12-25 18:36 | P.HP_ITS ---
HPI H&P: HPI History of Present Illness Chief complaint: NAUSEA, CONSTIPATION, DIVERTICULITIS, BOWEL STENOS Narrative: Patient was a send admission and discharge for diverticulitis, was transferred to [place] with a follow-up possible toxic megacolon and surgery and here not comfortable treating that. Patient did not have toxic megacolon, treated for diverticulitis for 3 days there and discharged home without antibiotics. Gradually since that time her pain is becoming worse. Presented to the emergency room found to have diverticulitis persisting. No signs of the toxic megacolon. Patient will be admitted for observation for failed outpatient treatment of acute diverticulitis Opioid HPI Opioid Management Most Recent Pain and Opioid Data: Last Pain Scale 9 11/19/23 16:38 Last Pain Assessment 12/25/23 18:00 Last ORT Total Score 0 12/25/23 14:56 Last ORT Risk Category Low Risk 12/25/23 14:56 Review of Systems ROS Status of ROS 10 or more systems reviewed and unremark able except as noted in history and below PFSH PFSH Social History Highest level of school completed/degree received: 11th grade Gender Identity: female Meds Home Medications and Allergies Home Medications ?Medication ?Instructions ?Recorded ?Confirmed ?Type amiodarone 100 mg tablet 100 mg PO Q24H 11/19/23 12/25/23 History apixaban 5 mg tablet (Eliquis) 5 mg PO Q12H 11/19/23 12/25/23 History carvedilol 6.25 mg tablet 6.25 mg PO Q12H 11/19/23 12/25/23 History diltiazem HCl 180 mg capsule,24 180 mg PO Q24H 11/19/23 12/25/23 History hr,extended release (Tiadylt ER) doxepin 25 mg capsule 50 mg PO .pm 11/19/23 12/25/23 History irbesartan 300 mg tablet 300 mg PO DAILY 11/19/23 12/25/23 History levothyroxine 50 mcg tablet 50 mcg PO DAILY 11/19/23 12/25/23 History omeprazole 40 mg capsule,delayed 40 mg PO DAILY 11/19/23 12/25/23 History release linaclotide 72 mcg capsule 72 mcg PO DAILY 12/25/23 12/25/23 History (Linzess) Allergies Allergy/AdvReac Type Severity Reaction Status Date / Time No Known Drug Allergies Allergy Verified 11/19/23 16:02 Exam Constitutional Vital Signs, click to edit/add: Last Vital Signs Temp 98.3 F 12/25/23 15:52 Pulse 74 12/25/23 15:52 Resp 16 12/25/23 15:52 BP 145/85 H 12/25/23 15:52 Pulse Ox 96 12/25/23 15:52 O2 Del Method Room Air 12/25/23 15:52 Documenting provider has reviewed patient's vital signs: yes Common normals: no apparent distress Chest Common normals: inspection of chest normal Respiratory Common normals: normal respiratory effort and no retractions Cardio Common normals: regular rate and regular rhythm GI Common normals: Normal to inspection, nondistended, normoactive bowel sounds present and soft to palpation; tender Palpation: tender (With acute rebound tenderness, more tender left lower quadrant) Neuro Common normals: oriented x3 Results Labs Labs: Short CBC 12/25/23 Range/Units 11:00 WBC 10.4 (4.0-11.0) 10^3/uL Hgb 11.9 L (12.0-16.0) g/dL Hct 37.6 (36.0-48.0) % Plt Count 403 (150-450) 10^3/uL BMP 12/25/23 11:00 Sodium 136 Potassium 3.5 Chloride 100 Carbon Dioxide 28.8 BUN 12.0 Creatinine 0.86 Glucose 126 H Calcium 9.4 Liver Function 12/25/23 Range/Units 11:00 Total Bilirubin 0.9 (0.2-1.0) mg/dL AST 16 (15-37) U/L ALT 19 (14-59) U/L Alkaline Phosphatase 138 H (46-116) U/L Albumin 3.2 L (3.4-5.0) g/dL Urine 12/25/23 Range/Units 12:54 Urine Color Lt. yellow (YELLOW) Urine Clarity Clear (CLEAR) Urine pH 6.5 (5.0-9.0) Ur Specific [place] <=1.005 A (1.005-1.025) Urine Protein Negative (NEG/TRACE) mg/dL Urine Glucose (UA) Negative (NEGATIVE) mg/dL Assessment and Plan Assessment and Plan (1) Acute diverticulitis: (2) Abdominal pain: Plan Uncontrolled hypertension, recurrent nausea vomiting secondary to recurrent abdominal pain secondary to unsuccessfully treated outpatient acute diverticulitis, no sign of toxic megacolon this time, will admit patient for IV hydration and IV antibiotics. Left unlikely to be able to tolerate oral antibiotics with the degree of nausea and vomiting. Repeat labs in AM. 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 Will review ECG. Continue with medications. Hypothyroidism-continue with home medications Hypertension-continue with home medications GERD-continue with home medications Admission status: Patient with recurrent nausea vomiting abdominal pain. White blood cell count is normal. Will give hydration overnight IV antibiotics overnight if improved in a.m. especially the rebound tenderness that is present on my examination, can discharged home safely tomorrow. Maintain observation status
[2023-12-25] MEDS: DOXEPIN HCL 25 MG CAPSULE 50 MG PO (21:25)
[2023-12-25] MEDS: APIXABAN 5 MG TABLET PO (21:26)
[2023-12-25] MEDS: LACTATED RINGER'S SOLUTION 1,000 ML 100 ML IV (21:27)
[2023-12-25] MEDS: CARVEDILOL 6.25 MG TABLET PO (21:42)
[2023-12-26 00:16] VITALS: BP 123/74; PULSE 74; TEMP 36.6; O2SAT 93
[2023-12-26] MEDS: METRONIDAZOLE/SODIUM CHLORIDE 500 MG/100 ML PREMIX 100 MG IV ×2 (01:23→08:03)
[2023-12-26 03:53] VITALS: BP 153/80; PULSE 85; TEMP 36.9; O2SAT 94
[2023-12-26] MEDS: HYOSCYAMINE SULFATE 0.125 MG TAB.SUBL SL ×2 (05:49→11:09)
[2023-12-26] MEDS: LEVOFLOXACIN IN DEXTROSE 5 % 750 MG/150 ML IV.SOLN 100 MG IV (05:49)
[2023-12-26] MEDS: LEVOTHYROXINE SODIUM 25 MCG TABLET 50 MCG PO (05:49)
[2023-12-26 06:41] LABS: Basophils Percent Auto 0.3 % (0.2-2.0); Eosinophils Absolute Auto 0.1 10^3/uL (0.0-0.7); Eosinophils Percent Auto 1.3 % (0.9-7.0); Hematocrit 35.2 % (36.0-48.0); Hemoglobin 10.9 g/dL (12.0-16.0); Immature Granulocytes Abs Auto 0.02 10^3/uL (0.00-0.03); Immature Granulocytes Pct Auto 0.2 % (0.0-0.5); Lymphocytes Absolute Auto 1.3 10^3/uL (1.2-3.8); Lymphocytes Percent Auto 14.1 % (20.5-60.0); Mean Corpuscular Hemoglobin 26.5 pg (26.7-34.0); Mean Corpuscular Volume 85.6 fL (81.0-99.0); Monocytes Absolute Auto 0.8 10^3/uL (0.3-0.8); Neutrophils Absolute Auto 6.8 10^3/uL (1.4-6.5); Neutrophils Percent Auto 75.1 % (43.0-75.0); Platelet Count 412 10^3/uL (150-450); Red Blood Count 4.11 10^6/uL (4.20-5.40); Red Cell Distribution Width 16.2 % (11.0-15.0); White Blood Count 9.1 10^3/uL (4.0-11.0)
[2023-12-26 07:56] VITALS: BP 148/80; PULSE 84; TEMP 36.8; O2SAT 100
[2023-12-26 08:36] LABS: Alanine Aminotransferase 25 U/L (14-59); Albumin Globulin Ratio 0.7; Albumin Level 2.9 g/dL (3.4-5.0); Alkaline Phosphatase 124 U/L (46-116); Anion Gap 11.1; Aspartate Amino Transferase 21 U/L (15-37); BUN Creatinine Ratio 12.8; Bilirubin Total 0.6 mg/dL (0.2-1.0); Calcium 8.8 mg/dL (8.5-10.1); Carbon Dioxide 26.2 mmol/L (21.0-32.0); Chloride 101 mmol/L (98-107); Estimated GFR (African America >60 (>=60); Estimated GFR (Non-African Ame >60 (>=60); Globulin 4.3 g/dL; Glucose 116 mg/dL (74-106); Potassium 3.3 mmol/L (3.5-5.1); Sodium 135 mmol/L (136-145); Total Protein 7.2 g/dL (6.4-8.2)
--- NOTE | 2023-12-26 09:09 | P.DS_ITS ---
DS: Providers Provider Date of admission: 12/25/23 14:38 Primary care physician: Lele Smith MD Consults: 12/25/23 15:52 Consult to Pharmacy Routine Consulting Provider: Reason for consultation: Please [place] me when Med Rec is Updated Has provider been notified: No Occupational Therapy Eval and Treat Routine Reason for consultation: Only if needed for Rehab Has provider been notified: No Physical Therapy Eval and Treat Routine Reason for consultation: Eval and Treat Has provider been notified: No DS: Diagnosis Discharge Diagnosis (1) Acute diverticulitis: (2) Abdominal pain: Plan Uncontrolled hypertension, recurrent nausea vomiting secondary to recurrent abdominal pain secondary to unsuccessfully treated outpatient acute diverticulitis -improving at the time of discharge 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 Will review ECG. Continue with medications. Hypothyroidism-continue with home medications Hypertension-continue with home medications GERD-continue with home medications Admission status: Patient with recurrent nausea vomiting abdominal pain. White blood cell count is normal. Will give hydration overnight IV antibiotics overnight if improved in a.m. especially the rebound tenderness that is present on my examination, can discharged home safely tomorrow. Maintain observation status DS: Summary Hospital Course Hospital Course: Patient was treated as an inpatient for acute diverticulitis, there was concern for toxic megacolon so she was transferred to a tertiary care facility where she spent 3 days on IV antibiotics, discharged home, pain became worse, started on oral medications but not effective having nausea and was vomiting that was uncontrolled at home. In ER found to have acute diverticulitis, placed on IV fluids for dehydration and IV antibiotics, patient much improved this morning with rebound tenderness being resolved, patient stable for discharge to home. Medications see list. See me in the office next week. At some point needs a colonoscopy and the plan is in place for that at this time Status at Discharge Overall status at discharge: patient is back to baseline Time Spent with Patient Time attestation: Total time spent providing and/or coordinating discharge services: Time spent: less than 30 minutes Exam Constitutional Vital Signs, click to edit/add: Last Vital Signs Temp 98.2 F 12/26/23 07:56 Pulse 84 12/26/23 07:56 Resp 18 12/26/23 07:56 BP 148/80 H 12/26/23 07:56 Pulse Ox 100 12/26/23 07:56 O2 Del Method Room Air 12/26/23 07:56 Documenting provider has reviewed patient's vital signs: yes Common normals: no apparent distress Chest Common normals: inspection of chest normal Respiratory Common normals: normal respiratory effort and no retractions Cardio Common normals: regular rate and regular rhythm GI Common normals: Normal to inspection, nondistended, normoactive bowel sounds present, soft to palpation and non-tender Palpation: non-tender (Rebound tenderness resolved) Neuro Common normals: oriented x3 DS: Data Data Completed and Pending Labs on day of discharge: Labs from last 24 hours 12/26/23 12/25/23 12/25/23 06:20 16:49 12:54 WBC 9.1 RBC 4.11 L Hgb 10.9 L Hct 35.2 L MCV 85.6 MCH 26.5 L MCHC 31.0 RDW 16.2 H Plt Count 412 MPV 10.0 Neut % (Auto) 75.1 H Lymph % (Auto) 14.1 L [place] % (Auto) 9.0 Eos % (Auto) 1.3 Baso % (Auto) 0.3 Neut # (Auto) 6.8 H Lymph # (Auto) 1.3 [place] # (Auto) 0.8 Eos # (Auto) 0.1 Baso # (Auto) 0.0 Abs Immat Gran (auto) 0.02 Imm/Tot Granulo (auto) 0.2 Sodium 135 L Potassium 3.3 L Chloride 101 Carbon Dioxide 26.2 Anion Gap 11.1 BUN 10.0 Creatinine 0.78 Est GFR ( Amer) >60 Est GFR (Non-Af Amer) >60 BUN/Creatinine Ratio 12.8 Glucose 116 H Lactate 1.0 Calcium 8.8 Total Bilirubin 0.6 AST 21 ALT 25 Alkaline Phosphatase 124 H Total Protein 7.2 Albumin 2.9 L Globulin 4.3 Albumin/Globulin Ratio 0.7 Urine Color Lt. yellow Urine Clarity Clear Urine pH 6.5 Ur Specific [place] <=1.005 A Urine Protein Negative Urine Glucose (UA) Negative Urine Ketones Negative Urine Occult Blood Negative Urine Nitrite Negative Urine Bilirubin Negative Urine Urobilinogen 1.0 Ur Leukocyte Esterase Negative 12/25/23 11:00 WBC 10.4 RBC 4.36 Hgb 11.9 L Hct 37.6 MCV 86.2 MCH 27.3 MCHC 31.6 RDW 16.2 H Plt Count 403 MPV 10.5 Neut % (Auto) 83.3 H Lymph % (Auto) 8.6 L [place] % (Auto) 7.4 Eos % (Auto) 0.2 L Baso % (Auto) 0.1 L Neut # (Auto) 8.7 H Lymph # (Auto) 0.9 L [place] # (Auto) 0.8 Eos # (Auto) 0.0 Baso # (Auto) 0.0 Abs Immat Gran (auto) 0.04 H Imm/Tot Granulo (auto) 0.4 Sodium 136 Potassium 3.5 Chloride 100 Carbon Dioxide 28.8 Anion Gap 10.7 BUN 12.0 Creatinine 0.86 Est GFR ( Amer) >60 Est GFR (Non-Af Amer) >60 BUN/Creatinine Ratio 14.0 Glucose 126 H Lactate Calcium 9.4 Total Bilirubin 0.9 AST 16 ALT 19 Alkaline Phosphatase 138 H Total Protein 8.0 Albumin 3.2 L Globulin 4.8 Albumin/Globulin Ratio 0.7 Urine Color Urine Clarity Urine pH Ur Specific [place] Urine Protein Urine Glucose (UA) Urine Ketones Urine Occult Blood Urine Nitrite Urine Bilirubin Urine Urobilinogen Ur Leukocyte Esterase Discharge Plan Discharge Disposition: Home, Self-Care Condition: Fair Discharge Medications: New linaclotide 72 mcg Capsule 72 mcg PO DAILY Qty: 30 11RF ciprofloxacin HCl [Cipro] 500 mg tablet 500 mg PO Q12H Qty: 20 0RF metronidazole 500 mg tablet 500 mg PO Q8H Qty: 30 0RF Continued amiodarone 100 mg tablet 100 mg PO Q24H Eliquis 5 mg tablet 5 mg PO Q12H carvedilol 6.25 mg tablet 6.25 mg PO Q12H diltiazem HCl [Tiadylt ER] 180 mg capsule,extended release 24 hr 180 mg PO Q24H doxepin 25 mg capsule 50 mg PO .pm irbesartan 300 mg tablet 300 mg PO DAILY levothyroxine 50 mcg tablet 50 mcg PO DAILY omeprazole 40 mg capsule,delayed release(DR/EC) 40 mg PO DAILY Linzess 72 mcg capsule 72 mcg PO DAILY Print Language: Swedish Forms: Portal Instructions
[2023-12-26] MEDS: CARVEDILOL 6.25 MG TABLET PO (09:24)
[2023-12-26] MEDS: APIXABAN 5 MG TABLET PO (09:24)
[2023-12-26] MEDS: AMIODARONE HCL 200 MG TABLET 100 MG PO (09:25)
[2023-12-26] MEDS: DILTIAZEM HCL 180 MG CAP.ER.24H PO (09:25)
[2023-12-26] MEDS: LOSARTAN POTASSIUM 50 MG TABLET 100 MG PO (09:25)
--- NOTE | 2023-12-26 09:42 | SWNOTE1 ---
SW met with pt to discuss dc needs. Pt lives at home by herself. She uses a cane at home. Pt voiced she is feeling much better and has no concerns/needs at discharge. Pt's daughter is picking her up. Medicare Outpatient Observation Notice reviewed and discussed with patient. Pt. verbalized understanding and signed the form. Original given to patient and copy placed in patient?s chart.
[2023-12-26 11:08] VITALS: BP 133/66; PULSE 82; TEMP 36.6; O2SAT 95
--- NOTE | 2023-12-27 13:17 | CM.DCFOLLOWU ---
Person spoke with: patient How are you feeling? well How is your pain? no pain, going to the bathroom well today Did you understand your discharge instructions? yes Do you have any questions about your discharge instructions? no Were you given any prescriptions at discharge? yes Were you able to get your prescriptions filled? yes Do you understand how to take your medications as ordered? yes Do you have any questions about your follow up appointment and do you plan to keep your follow up appointment? no questions, follow up reviewed Is there anything else that you would like to discuss? no Questions/Comments/Concerns/Other: none
== END 2023-12-26 11:41 | disposition home or self-care (01) ==
LOC: ER 13:56 → MS 12-26 07:55
PROVIDERS: Admitting Provider Family Medicine; Emergency Provider Emergency Medicine; PCP Family Medicine; Visit Provider Family Medicine
DX: K57.32 Diverticulitis of large intestine without perforation or abscess without bleeding (principal); I10 Essential (primary) hypertension; I48.91 Unspecified atrial fibrillation; E03.9 Hypothyroidism, unspecified; K21.9 Gastro-esophageal reflux disease without esophagitis; I71.40 Abdominal aortic aneurysm, without rupture, unspecified; R11.2 Nausea with vomiting, unspecified; R10.9 Unspecified abdominal pain; Z79.01 Long term (current) use of anticoagulants; Z79.899 Other long term (current) drug therapy
CPT/HCPCS: 36415; 74177; 80053; 81003; 83605; 85025; 87040; 87086; 94667; 94761; 96361; 96365; 96366; 96367; 96375; 99285; G0378; J0744; J1200; J1836; J2405; J2765; Q9967

== ENCOUNTER 2024-01-18 07:27 | Observation (INO) | payer MEDICARE, OTHER, SELFPAY ==
[2024-01-18 07:32] VITALS: BP 138/93; PULSE 87; TEMP 36.8; O2SAT 98; BMI 45.0
--- NOTE | 2024-01-18 07:37 | CT_ITS ---
The [address] [address] Patient Name: ANGIE WATT MRN: [id number] date: 1950 Sex: F Assigned Patient Location: ER Current Patient Location: ER Accession/Order Number: [id number] Exam Date: 01/18/2024 08:30 Report Date: 01/18/2024 09:19 At the request of: EDUARDO WALKER Procedure: CT abdomen pelvis w con EXAMINATION: CT abdomen pelvis w con REASON FOR EXAM: Left lower quadrant pain COMPARISON: 12/25/2023 FINDINGS: LUNG BASES: No infiltrate, nodule, or pleural effusion. ABDOMINAL FINDINGS: There is mild fluid distention of the small bowel right colon, transverse colon, and descending colon which extends to the level of the junction between the descending colon and sigmoid colon. There is abnormal thickening which raises the possibility of a mass in this location. Similar findings seen on 12/25/2023. There is some adjacent pericolic fat stranding. This is a relative point of transition. There are diverticula in the sigmoid colon although the remainder the sigmoid colon does not appear abnormally thickened. There is no free air. No mass in the liver or spleen. There is some pancreatic atrophy but no suggestion of acute pancreatitis. No pancreatic or biliary ductal dilatation. Prior cholecystectomy. Hypodensities in the liver measures up to 7 and is stable compatible with a cyst. Adrenal glands normal. Small cyst lower pole right kidney. No hydronephrosis. Infrarenal abdominal aortic aneurysm measures up to 3.6 x 3.2 cm and there is also aneurysmal dilatation left common iliac artery and proximal external iliac artery measuring up to 3.3 cm, unchanged from prior. No retroperitoneal adenopathy. The portal vein is patent. There is atherosclerotic plaquing in the mid SMA although this is patent. The appearance is stable. No omental disease or ascites. PELVIC FINDINGS: The adnexa and the uterus appear age-appropriate. Urinary bladder decompressed. No herniation of bowel into the inguinal regions. Delayed scan of the pelvis show some opacification of distal ureters and urinary bladder. 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 CT/CT abdomen pelvis w con IMPRESSION: 1. There is irregular annular thickening of the wall of the colon at the junction between the descending colon and sigmoid colon raising the possibility of a neoplasm. This is a relative point of transition between the fluid distended small bowel and colon and decompressed sigmoid colon suggesting a partial large bowel obstruction. 2. There is some adjacent stranding of the mesentery. A component of diverticulitis cannot be excluded. Similar findings were seen on 12/25/2023. 3. There is no evidence for perforation. 4. Aneurysm of the abdominal aorta and left iliac system unchanged. Electronically authenticated by: ALLISON SCHAEFFER Date: 01/18/2024 09:19
--- NOTE | 2024-01-18 07:38 | ED_ITS ---
HPI - Abdominal Pain General Chief Complaint: Abdominal Pain Stated Complaint: NAUSEA, CONSTIPATION Time Seen by Provider: 01/18/24 07:34 History of Present Illness HPI narrative: 73-year-old female presents for abdominal pain. She believes it may be diverticulitis. It began yesterday and is in the left lower abdomen as well as the epigastric area. She has been nauseous but no vomiting. No blood in her stool. No trauma or known fever. The pain is moderate and continuous. Related Data Home Medications ?Medication ?Instructions ?Recorded ?Confirmed amiodarone 100 mg tablet 100 mg PO Q24H 11/19/23 12/25/23 apixaban 5 mg tablet (Eliquis) 5 mg PO Q12H 11/19/23 12/25/23 carvedilol 6.25 mg tablet 6.25 mg PO Q12H 11/19/23 12/25/23 diltiazem HCl 180 mg capsule,24 180 mg PO Q24H 11/19/23 12/25/23 hr,extended release (Tiadylt ER) doxepin 25 mg capsule 50 mg PO .pm 11/19/23 12/25/23 irbesartan 300 mg tablet 300 mg PO DAILY 11/19/23 12/25/23 levothyroxine 50 mcg tablet 50 mcg PO DAILY 11/19/23 12/25/23 omeprazole 40 mg capsule,delayed 40 mg PO DAILY 11/19/23 12/25/23 release linaclotide 72 mcg capsule 72 mcg PO DAILY 12/25/23 12/25/23 (Linzess) Previous Rx's ?Medication ?Instructions ?Recorded ciprofloxacin HCl 500 mg tablet 500 mg PO Q12H #20 tabs 12/26/23 (Cipro) linaclotide 72 mcg capsule 72 mcg PO DAILY #30 caps 12/26/23 metronidazole 500 mg tablet 500 mg PO Q8H #30 tabs 12/26/23 Allergies Allergy/AdvReac Type Severity Reaction Status Date / Time No Known Drug Allergies Allergy Verified 01/18/24 07:39 Review of Systems ROS Narrative A ten point review of systems is negative except as noted above. [facility] Medical History (Updated 01/18/24 @ 09:22 by Steven Langston MD) Acute diverticulitis ?K57.92 - Diverticulitis of intestine, part unspecified, without perforation or abscess without bleeding (ICD-10) Abdominal pain ?R10.9 - Unspecified abdominal pain (ICD-10) Social History Highest level of school completed/degree received: 11th grade Gender Identity: female Exam Narrative Exam Narrative: Nurses note and vital signs reviewed and patient is not hypoxic. General: The patient appears mildly uncomfortable. Skin: Warm, dry, no pallor noted. There is no rash noted. Head: Normocephalic, atraumatic Eye: Normal conjunctiva, no drainage Ears, Nose, Mouth, and Throat: oral mucosa is moist. Nares patent. Cardiovascular: Regular Rate and Rhythm Respiratory: Patient is in no distress, no accessory muscle use, lungs are clear to auscultation, no wheezing, rales or rhonchi Back: non-tender GI: Obese, tender in the left lower quadrant. No distention Musculoskeletal: The patient has no evidence of calf tenderness, no pitting edema, symmetrical pulses noted bilaterally Neurological: A&O, normal speech Psychiatric: Cooperative Constitutional Vital Signs, click to edit/add: Last Vital Signs Temp 98.3 F 01/18/24 07:32 Pulse 87 01/18/24 07:32 Resp 18 01/18/24 07:32 BP 138/93 H 01/18/24 07:32 Pulse Ox 98 01/18/24 07:32 O2 Del Method Room Air 01/18/24 07:32 Course Vital Signs Vital signs: Vital Signs Temperature 98.3 F 01/18/24 07:32 Pulse Rate 87 01/18/24 07:32 Respiratory Rate 18 01/18/24 07:32 Blood Pressure 138/93 H 01/18/24 07:32 Pulse Oximetry 98 01/18/24 07:32 Oxygen Delivery Method Room Air 01/18/24 07:32 Temperature 98.3 F 01/18/24 07:32 Pulse Rate 87 01/18/24 07:32 Respiratory Rate 18 01/18/24 07:32 Blood Pressure 138/93 H 01/18/24 07:32 Pulse Oximetry 98 01/18/24 07:32 Oxygen Delivery Method Room Air 01/18/24 07:32 MDM - Abdominal Pain MDM Narrative Medical decision making narrative: CAT scan again shows was possible mass and she is scheduled to have a colonoscopy next week. She is never had a colonoscopy previously. They also see some stranding and suggested that this could be diverticulitis. She will be brought in for pain control and nausea control and IV antibiotics. She was given Cipro and Flagyl here. The Phenergan seems to work better than the Zofran did for her nausea. Treatment diagnosis and disposition were discussed with the patient. Differential Diagnosis Differential diagnosis: Likely abdominal pain, constipation, diverticulitis, gastroenteritis and small bowel obstruction Lab Data Attestation: I reviewed the patient's lab results. Labs: Lab Results 01/18/24 Range/Units 07:45 WBC 11.1 H (4.0-11.0) 10^3/uL RBC 4.56 (4.20-5.40) 10^6/uL Hgb 12.2 (12.0-16.0) g/dL Hct 38.5 (36.0-48.0) % MCV 84.4 (81.0-99.0) fL MCH 26.8 (26.7-34.0) pg MCHC 31.7 (29.9-35.2) g/dL RDW 17.1 H (11.0-15.0) % Plt Count 360 (150-450) 10^3/uL MPV 10.1 (9.5-13.5) fL Neut % (Auto) 82.8 H (43.0-75.0) % Lymph % (Auto) 9.5 L (20.5-60.0) % [place] % (Auto) 6.8 (1.7-12.0) % Eos % (Auto) 0.4 L (0.9-7.0) % Baso % (Auto) 0.1 L (0.2-2.0) % Neut # (Auto) 9.2 H (1.4-6.5) 10^3/uL Lymph # (Auto) 1.1 L (1.2-3.8) 10^3/uL [place] # (Auto) 0.8 (0.3-0.8) 10^3/uL Eos # (Auto) 0.0 (0.0-0.7) 10^3/uL Baso # (Auto) 0.0 (0.0-0.1) 10^3/uL Abs Immat Gran (auto) 0.04 H (0.00-0.03) 10^3/uL Imm/Tot Granulo (auto) 0.4 (0.0-0.5) % Sodium 135 L (136-145) mmol/L Potassium 3.6 (3.5-5.1) mmol/L Chloride 99 (98-107) mmol/L Carbon Dioxide 25.9 (21.0-32.0) mmol/L Anion Gap 13.7 BUN 10.0 (7.0-18.0) mg/dL Creatinine 0.90 (0.55-1.02) mg/dL Est GFR ( Amer) >60 (>=60) Est GFR (Non-Af Amer) >60 (>=60) BUN/Creatinine Ratio 11.1 Glucose 142 H (74-106) mg/dL Calcium 9.7 (8.5-10.1) mg/dL Total Bilirubin 0.7 (0.2-1.0) mg/dL Direct Bilirubin 0.2 (0.0-0.2) mg/dL AST 31 (15-37) U/L ALT 48 (14-59) U/L Alkaline Phosphatase 136 H (46-116) U/L Total Protein 8.0 (6.4-8.2) g/dL Albumin 3.5 (3.4-5.0) g/dL Globulin 4.5 g/dL Albumin/Globulin Ratio 0.8 Amylase 23 L (25-115) U/L Lipase 18.0 (16.0-77.0) U/L Imaging Data CT scan - abdomen: Radiologist's impression: ITS Impressions Abdomen/Pelvis CT 01/18/24 07:37 IMPRESSION: 1. There is irregular annular thickening of the wall of the colon at the junction between the descending colon and sigmoid colon raising the possibility of a neoplasm. This is a relative point of transition between the fluid distended small bowel and colon and decompressed sigmoid colon suggesting a partial large bowel obstruction. 2. There is some adjacent stranding of the mesentery. A component of diverticulitis cannot be excluded. Similar findings were seen on 12/25/2023. 3. There is no evidence for perforation. 4. Aneurysm of the abdominal aorta and left iliac system unchanged. Electronically authenticated by: ALLISON SCHAEFFER Date: 01/18/2024 09:08 Discharge Plan Discharge Chief Complaint: Abdominal Pain Clinical Impression: Diverticulitis, Abdominal pain Patient Disposition: Admitted As Inpatient Time of Disposition Decision: 09:21 Condition: Fair Prescriptions / Home Meds: No Action amiodarone 100 mg tablet 100 mg PO Q24H Eliquis 5 mg tablet 5 mg PO Q12H carvedilol 6.25 mg tablet 6.25 mg PO Q12H diltiazem HCl [Tiadylt ER] 180 mg capsule,extended release 24 hr 180 mg PO Q24H doxepin 25 mg capsule 50 mg PO .pm irbesartan 300 mg tablet 300 mg PO DAILY levothyroxine 50 mcg tablet 50 mcg PO DAILY omeprazole 40 mg capsule,delayed release(DR/EC) 40 mg PO DAILY Linzess 72 mcg capsule 72 mcg PO DAILY linaclotide 72 mcg Capsule 72 mcg PO DAILY Qty: 30 11RF ciprofloxacin HCl [Cipro] 500 mg tablet 500 mg PO Q12H Qty: 20 0RF metronidazole 500 mg tablet 500 mg PO Q8H Qty: 30 0RF Print Language: [place] Referrals: Lele Smith MD [Primary Care Provider] - 1 week
--- OUTSIDE RECORDS SUMMARY | 2024-01-18 07:45 | XMS_ITS | CCD ---
Author Organization [facility] Care Team Providers Care Grounds And Nursery Specialist Name Role Phone KERRI SMITH Referring Unavailable HOY, KERRI Primary Care Unavailable JOECHARLI Polk Attending [...] Unavailable HOY, DR MANNING Primary Care Unavailable LISSA SPENCER Referring Unavailable FARHANA, ROHIT Referring Unavailable KATKO, EDUARDO Referring Unavailable LAI, SAIDA Admitting Unavailable LAI, SAIDA Attending Unavailable BARAZI, LISSA Attending Unavailable NILL, Pasha Mercado Attending Unavailable JethroyKerri Referring Unavailable Problems Active Problems Problem Classification Problem Date Documented Date Episodic/Chronic Cardiac dysrhythmias (4 sources) Unspecified atrial fibrillation; Translations: [UNSPECIFIED ATRIAL FIBRILLATION] Onset: 06-14-2021 Chronic Diverticulosis and diverticulitis (2 sources) Diverticulitis of intestine, part unspecified, without perforation or abscess without bleeding; Translations: [Diverticulitis of intestine, part unspecified, without perforation or abscess without bleeding] Onset: 11-20-2023 Chronic Essential hypertension (1 source) Essential (primary) hypertension; Translations: [ESSENTIAL PRIMARY HYPERTENSION] Onset: 06-27-2021 Chronic Thyroid disorders (1 source) Hypothyroidism, unspecified; Translations: [HYPOTHYROIDISM UNSPECIFIED] Onset: 06-27-2021 Chronic Unclassified (4 sources) CONTACT W/AND (SUSP) EXPOS COVID-19; Translations: [CONTACT W/AND (SUSP) EXPOS COVID-19] Onset: 06-18-2021 Unclassified (2 sources) Other persistent atrial fibrillation; Translations: [Other persistent atrial fibrillation] Onset: 05-09-2022 Past or Other Problems Problem Classification Problem Date Documented Da te Episodic/Chronic Other aftercare (2 sources) 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; Translations: [Other group home (current) drug therapy] Onset: 06-18-2023 Episodic Other lower respiratory disease (1 source) Other forms of dyspnea; Translations: [OTHER FORMS OF DYSPNEA] Onset: 06-27-2021 Episodic Unclassified (1 source) CONTACT W/AND (SUSP) EXPOS COVID-19; Translations: [CONTACT W/AND (SUSP) EXPOS COVID-19] Onset: 03-07-2022 Results Test Name Value Interpretation Reference Range Facility Physician Referralon 024 Physician Referral [id number] [id number] FF Normal [facility] BASIC METABOLIC PANELon Anion gap [Moles/Vol] 12 mmol/L Normal 7- [facility] Comment on above: Performed By: #### L [id number] #### [facility] ([facility]) [address] [place] [address] Calcium [Mass/Vol] 8.5 mg/dL Low 8.6-10.3 [facility] Comment on above: Performed By: #### L [id number] #### [facility] ([facility]) [address] [place] [address] Chloride [Moles/Vol] 101 mmol/L Normal 98-107 [facility] Comment on above: Performed By: #### L [id number] #### [facility] ([facility]) [address] [place] [address] CO2 [Moles/Vol] 26 mmol/L Normal 21-[address] [facility] Comment on above: Performed By: #### L [id number] #### [facility] ([facility]) [address] [place] [address] Creatinine [Mass/Vol] 0.78 mg/dL Normal 0.60-1.20 [facility] Comment on above: Performed By: #### L [id number] #### [facility] ([facility]) [address] [place] [address] GLOMERULAR FILTRATION RATE ML/MIN/1.73 SQ M.PREDICTED 81.2 mL/min/1.73m*2 Normal >60.0 [facility] Comment on above: Result Comment: The [facility]???s estimated glomerular filtration rate (eGFR) will no longer include consideration of race in its calculation. The National Kidney Foundation???s eGFR Task Force developed new recommendations for the estimation of the glomerular filtration rate in the [place] They recommend immediate implementation of the new equation refit without the race variable in all laboratories because the calculation does not include race. In addition to not including race in the calculation and reporting, it included diversity in its development, and has acceptable performance characteristics and potential consequences that do not disproportionately affect any one group of individuals. Performed By: #### L [id number] #### [facility] ([facility]) [address] [place] [address] Glucose [Mass/Vol] 91 mg/dL Normal 70-100 [facility] Comment on above: Performed By: #### L [id number] #### [facility] ([facility]) [address] [place] [address] Potassium [Moles/Vol] 3.9 mmol/L Normal 3.5-5.1 [facility] Comment on above: Performed By: #### L [id number] #### [facility] ([facility]) [address] [place] [address] Sodium [Moles/Vol] 135 mmol/L Low 136-145 [facility] Comment on above: Performed By: #### L [id number] #### [facility] ([facility]) [address] [facility] [place] [address] Urea nitrogen [Mass/Vol] 8 mg/dL Normal 7-25 [facility] Comment on above: Performed By: #### L [id number] #### [facility] ([facility]) [address] [place] [address] UREA NITROGEN/CREATININE (MASS RATIO) IN SER/PLAS 10.3 Normal [facility] Comment on above: Performed By: #### L [id number] #### [facility] ([facility]) [address] [place] [address] CBCon 11-22-2023 Erythrocyte distribution width (RBC) [Ratio] 15.9 % High 11.5-15.0 [facility] Comment on above: Performed By: #### L [id number] ####[facility] ([facility])[address] [place] [address] ERYTHROCYTE MEAN CORPUSCULAR HEMOGLOBIN CONCENTRATION (G/DL) BY AUTOMATED 31.3 g/dL Low 32.0-35.0 [facility] Comment on above: Performed By: #### L [id number] ####[facility] ([facility])[address] [place] [address] Hematocrit (Bld) [Volume fraction] 35.2 % Low 36.0-48.0 [facility] Comment on above: Performed By: #### L [id number] ####[facility] ([facility])[address] [place] [address] Hemoglobin (Bld) [Mass/Vol] 11.0 g/dL Low 12.0-15.0 [facility] Comment on above: Performed By: #### L [id number] ####[facility] ([facility])[address] [place] [address] MCH (RBC) [Entitic mass] 27.5 pg Normal 27.0-33.0 [facility] Comment on above: Performed By: #### L [id number] ####[facility] [place] [address] MCV (RBC) [Entitic vol] 88.0 fL Normal 82.0-98.0 [facility] Comment on above: Performed By: #### L [id number] ####[facility] [place] [address] PLATELETS (10*3/UL) IN BLOOD AUTOMATED COUNT 341 10*3/uL Normal 150-400 [facility] Comment on above: Performed By: #### L [id number] ####[facility] ([facility])[address] [place] [address] RBC (Bld) [#/Vol] 4.00 10*6/uL Normal 3.80-5.00 [facility] Comment on above: Performed By: #### L [id number] ####[facility] ([facility])[address] [place] [address] WBC (Bld) [#/Vol] 7.75 10*3/uL Normal 4.00-10.60 [facility] Comment on above: Performed By: #### L [id number] ####[facility] ([facility])[address] [facility] [place] [address] DSon 11-22-2023 DS Admission Admitted 11/20/2023 for Abdominal pain Discharge Diagnosis Diverticulitis Discharge Disposition Home or Self Care () Discharge Medications Your medication list START taking these medications Instructions Last Dose Given Next Dose Due acetaminophen 500 mg tablet Commonly known as: Tylenol Take 2 tablets (1,000 mg) by mouth every 8 (eight) hours for 291 doses. CONTINUE taking these medications Instructions Last Dose Given Next Dose Due amiodarone 100 mg tablet Commonly known as: Pacerone TAKE 1 TABLET BY MOUTH ONCE DAILY DIRECTED. apixaban 5 mg tablet Commonly known as: Eliquis carvedilol 6.25 mg tablet Commonly known as: Coreg dilTIAZem ER 180 mg 24 hr capsule Commonly known as: Tiazac doxepin 10 mg capsule Commonly known as: SINEquan irbesartan 300 mg tablet Commonly known as: Avapro levothyroxine 50 mcg tablet Commonly known as: Synthroid, Levoxyl omeprazole [address] capsule Commonly known as: PriLOSEC Where to Get Your Medications These medications were sent to [facility] - [place], [place] - [address] [place] [address] [address] [place] [address], [facility] [address] acetaminophen 500 mg tablet Activity Normal activity as tolerated Diet Continue on the same type of diet and foods as you were eating before your admission. Drink plenty of water. Allergies Patient has no known allergies. Hospital Course Jenny Watt is a 73 y.o. female with PMH of atrial fibrillation s/p ablation on amiodarone and eliquis, HTN, hypothyroidism, and sleep apnea and past surgical history of a cholecystectomy who presents to [facility] as a direct transfer from [facility] with diverticulitis. Pt had been having on and off abdominal pain that had worsened over the last day. Pt has a 1 day history of no gas or bowels movements. Outside imaging results are pending, but pt claims that her medicine doctor at [facility] said her CT showed colon dilation and diverticulitis. Pt afebrile, and vitals are wnl. Pt labs significant for glucose 116, alk phos 118, and hgb 11.5, otherwise wnl. Upon arrival to [facility], pt was started on a CLD, IV fluids, and Ceftriaxone. Pt was passing gas and having bowel movements with minimal abdominal pain. Patient continued to pass gas and her abdominal pain diminished during her stay. Pt tolerated up to a regular diet and then was discharged home after completing her antibiotic course. Pertinent Physical Exam At Time of Discharge General Appearance: Awake, Alert & Oriented x3, No Acute Distress Neck: Trachea Midline, No jugular venous distension Pulmonary: Unlabored breathing on room air. No expiratory wheeze. Cardiac: Regular rate Abdomen: soft, obese, non distended, and non tender to palpation Extremity: No edema Bilateral Upper and lower Extremities Skin: warm and dry without rash Eyes: no scleral icterus Lab Results Labs Reviewed CBC - Abnormal Result Value Auto WBC 9.02 RBC 4.19 Hemoglobin 11.5 (*) Hematocrit 36.1 MCV 86.2 MCH 27.4 MCHC 31.9 (*) RDW 15.8 (*) Platelets 388 COMPREHENSIVE METABOLIC PANEL - Abnormal Sodium 135 (*) Potassium 4.2 Chloride 101 CO2 29 Anion Gap 9 BUN 12 Creatinine 0.75 BUN/Creatinine Ratio 16.0 Glucose 116 (*) Calcium 8.9 AST 28 ALT (SGPT) 19 Alkaline Phosphatase 118 (*) Total Protein 7.0 Albumin 3.8 Total Bilirubin 0.6 eGFR 85.1 PROTIME-INR - Abnormal Protime 15.8 (*) INR 1.27 (*) BASIC METABOLIC PANEL - Abnormal Sodium 135 (*) Potassium 3.9 Chloride 102 CO2 26 BUN 8 Creatinine 0.75 Glucose 93 Calcium 8.6 Anion Gap 11 eGFR 85.1 BUN/Creatinine Ratio 10.7 CBC - Abnormal Auto WBC 7.22 RBC 4.01 Hemoglobin 11.0 (*) Hematocrit 34.7 (*) MCV 86.5 MCH 27.4 MCHC 31.7 (*) RDW 15.6 (*) Platelets 349 BASIC METABOLIC PANEL - Abnormal Sodium 135 (*) Potassium 3.9 Chloride 101 CO2 26 BUN 8 Creatinine 0.78 Glucose 91 Calcium 8.5 (*) Anion Gap 12 eGFR 81.2 BUN/Creatinine Ratio 10.3 CBC - Abnormal Auto WBC 7.75 RBC 4.00 Hemoglobin 11.0 (*) Hematocrit 35.2 (*) MCV 88.0 MCH 27.5 MCHC 31.3 (*) RDW 15.9 (*) Platelets 341 LACTIC ACID, PLASMA - Normal Lactate 1.2 MAGNESIUM - Normal Magnesium 2.5 PHOSPHORUS - Normal Phosphorus 2.5 URINALYSIS Nutrition Screen Issues Requiring Follow-Up Follow-up with PCP Follow up with general surgery clinic outpatient Outpatient Follow-Up No future appointments. Test Results Pending At Discharge [facility] 30on 11-21-2023 30 Daily Case Managemen t Update Multidisciplinary rounds have been completed. Barriers to Discharge: Management of diverticulitis; on full liquid diet and IV fluids. Plan to discharge home when medically ready. Diet: Dietary Orders (From admission, onward) Start Ordered 11/21/23 1208 Full Liquid Diet Diet effective now Question: Room Service? Answer: No 11/21/23 1207 11/20/23 1632 Dietary nutrition supplements Lunch; Liquacel; Iosco; 2 packets; Oral Until discontinued Question Answer Comment Deliver with Lunch Select supplement: Liquacel flavor [place] Strength: 2 packets Route Oral 11/20/23 1631 11/20/23 1631 Dietary nutrition supplements TID; Resource Breeze; 8 oz; Oral Until discontinued Question Answer Comment Deliver with TID Select supplement: Resource Breeze Strength: 8 oz Route Oral 11/20/23 1631 Physician Expected Discharge Date: 11/23/2023 Discharge Delays: PT Six Click Score: 17 OT Six Click Score: PT Recommendations: OT Recommendations: New Consults: [facility] BASIC METABOLIC PANELon 06-0 6-2024 Anion gap [Moles/Vol] 11 mmol/L Normal 7-20 [facility] Comment on above: Performed By: #### L [id number] #### [facility] ([facility]) [address] [place] [address] Calcium [Mass/Vol] 8.6 mg/dL Normal 8.6-10.3 [facility] Comment on above: Performed By: #### L [id number] #### [facility] ([facility]) [address] [place] [address] Chloride [Moles/Vol] 102 mmol/L Normal 98-107 [facility] Comment on above: Performed By: #### L [id number] #### [facility] ([facility]) [address] [place] [address] CO2 [Moles/Vol] 26 mmol/L Normal 21-[address] [facility] Comment on above: Performed By: #### L [id number] #### [facility] ([facility]) [address] [place] [address] Creatinine [Mass/Vol] 0.75 mg/dL Normal 0.60-1.20 [facility] Comment on above: Performed By: #### L [id number] #### [facility] ([facility]) [address] [place] [address] GLOMERULAR FILTRATION RATE ML/MIN/1.73 SQ M.PREDICTED 85.1 mL/min/1.73m*2 Normal >60.0 [facility] Comment on above: Result Comment: The [facility]???s estimated glomerular filtration rate (eGFR) will no longer include consideration of race in its calculation. The National Kidney Foundation???s eGFR Task Force developed new recommendations for the estimation of the glomerular filtration rate in the [place] They recommend immediate implementation of the new equation refit without the race variable in all laboratories because the calculation does not include race. In addition to not including race in the calculation and reporting, it included diversity in its development, and has acceptable performance characteristics and potential consequences that do not disproportionately affect any one group of individuals. Performed By: #### L [id number] #### [facility] [address] [place] [address] Glucose [Mass/Vol] 93 mg/dL Normal 70-100 [facility] Comment on above: Performed By: #### L [id number] #### [facility] ([facility]) [address] [place] [address] Potassium [Moles/Vol] 3.9 mmol/L Normal 3.5-5.1 [facility] Comment on above: Performed By: #### L [id number] #### [facility] ([facility]) [address] [place] [address] Sodium [Moles/Vol] 135 mmol/L Low 136-145 [facility] Comment on above: Performed By: #### L [id number] #### [facility] ([facility]) [address] [place] [address] Urea nitrogen [Mass/Vol] 8 mg/dL Normal 7-25 [facility] Comment on above: Performed By: #### L [id number] #### [facility] ([facility]) [address] [place] [address] UREA NITROGEN/CREATININE (MASS RATIO) IN SER/PLAS 10.7 Normal [facility] Comment on above: Performed By: #### L [id number] #### [facility] ([facility]) [address] [place] [address] CBCon 11-21-2023 Erythrocyte distribution width (RBC) [Ratio] 15.6 % High 11.5-15.0 [facility] Comment on above: Performed By: #### L [id number] #### [facility] ([facility]) [address] [place] [address] ERYTHROCYTE MEAN CORPUSCULAR HEMOGLOBIN CONCENTRATION (G/DL) BY AUTOMATED 31.7 g/dL Low 32.0-35.0 [facility] Comment on above: Performed By: #### L [id number] #### [facility] [address] [place] [address] Hematocrit (Bld) [Volume fraction] 34.7 % Low 36.0-48.0 [facility] Comment on above: Performed By: #### L [id number] #### [facility] ([facility]) [address] [place] [address] Hemoglobin (Bld) [Mass/Vol] 11.0 g/dL Low 12.0-15.0 [facility] Comment on above: Performed By: #### L [id number] #### [facility] ([facility]) [address] [place] [address] MCH (RBC) [Entitic mass] 27.4 pg Normal 27.0-33.0 [facility] Comment on above: Performed By: #### L [id number] #### [facility] ([facility]) [address] [place] [address] MCV (RBC) [Entitic vol] 86.5 fL Normal 82.0-98.0 [facility] Comment on above: Performed By: #### L [id number] #### [facility] ([facility]) [address] [place] [address] PLATELETS (10*3/UL) IN BLOOD AUTOMATED COUNT 349 10*3/uL Normal 150-400 [facility] Comment on above: Performed By: #### L [id number] #### [facility] ([facility]) [address] [place] [address] RBC (Bld) [#/Vol] 4.01 10*6/uL Normal 3.80-5.00 [facility] Comment on above: Performed By: #### L [id number] #### [facility] ([facility]) [address] [place] [address] WBC (Bld) [#/Vol] 7.22 10*3/uL Normal 4.00-10.60 [facility] Comment on above: Performed By: #### L [id number] #### [facility] [address] [place] [address] 30on 11-20-2023 30 Problem: Pain Goal: LTG-Verbalize decrease in pain 11/20/20232213 by Maia Weinstein RN Outcome: Progressing 11/20/20232212 by Maia Weinstein RN Outcome: Progressing Goal: LTG-Demostrate that the pain does not impair ADLs 11/20/20232213 by Maia Weinstein RN Outcome: Progressing 11/20/20232212 by Maia Weinstein RN Outcome: Progressing Goal: STG-Pt will verbalize decreased discomfort 11/20/20232213 by Maia Weinstein RN Outcome: Progressing 11/20/20232212 by Maia Weinstein RN Outcome: Progressing Problem: Pain - Adult Goal: Verbalizes/displays adequate comfort level or baseline comfort level Outcome: Progressing Problem: Safety - Adult Goal: Free from fall injury Outcome: Progressing Problem: Discharge Planning Goal: Discharge to home or other facility with appropriate resources Outcome: Progressing Problem: Chronic Conditions and Co-morbidities Goal: Patient's chronic conditions and co-morbidity symptoms are monitored and maintained or improved Outcome: Progressing The patient is Moderately Unstable - Medium risk of patient condition declining or worsening The patient's goals for the shift include comfort The clinical goals for the shift include comfort, maintain hemodynamic stability Over the shift, the patient did not make progress toward the following goals. Barriers to progression include . Recommendations to address these barriers include . Normal [facility] 30 The patient is Moderately Stable - Low risk of patient condition declining or worsening The patient's goals for the shift include comfort The clinical goals for the shift include comfort, maintain hemodynamic stability Over the shift, the patient did not make progress toward the following goals. Barriers to progression include assess pain and fall risks. Recommendations to address these barriers include assess fall risk status, and pain status Normal [facility] CBCon 11-20-2023 Erythrocyte distribution width (RBC) [Ratio] 15.8 % High 11.5-15.0 [facility] Comment on above: Performed By: #### L [id number] #### [facility] ([facility]) [address] [place] [address] ERYTHROCYTE MEAN CORPUSCULAR HEMOGLOBIN CONCENTRATION (G/DL) BY AUTOMATED 31.9 g/dL Low 32.0-35.0 [facility] Comment on above: Performed By: #### L [id number] #### [facility] ([facility]) [address] [place] [address] Hematocrit (Bld) [Volume fraction] 36.1 % Normal 36.0-48.0 [facility] Comment on above: Performed By: #### L [id number] #### [facility] ([facility]) [address] [place] [address] Hemoglobin (Bld) [Mass/Vol] 11.5 g/dL Low 12.0-15.0 [facility] Comment on above: Performed By: #### L [id number] #### [facility] ([facility]) [address] [place] [address] MCH (RBC) [Entitic mass] 27.4 pg Normal 27.0-33.0 [facility] Comment on above: Performed By: #### L [id number] #### [facility] ([facility]) [address] [place] [address] MCV (RBC) [Entitic vol] 86.2 fL Normal 82.0-98.0 [facility] Comment on above: Performed By: #### L [id number] #### [facility] ([facility]) [address] [place] [address] PLATELETS (10*3/UL) IN BLOOD AUTOMATED COUNT 388 10*3/uL Normal 150-400 [facility] Comment on above: Performed By: #### L [id number] #### [facility] ([facility]) [address] [place] [address] RBC (Bld) [#/Vol] 4.19 10*6/uL Normal 3.80-5.00 [facility] Comment on above: Performed By: #### L [id number] #### [facility] ([facility]) [address] [place] [address] WBC (Bld) [#/Vol] 9.02 10*3/uL Normal 4.00-10.60 [facility] Comment on above: Performed By: #### L [id number] #### [facility] ([facility]) [address] [place] [address] COMPREHENSIVE METABOLIC PANE Nacho 11-20-2023 Albumin [Mass/Vol] 3.8 g/dL Normal 3.5-5.7 [facility] Comment on above: Performed By: #### L [id number] ####[facility] [place] [address] ALP [Catalytic activity/Vol] 118 U/L High 34-104 [facility] Comment on above: Performed By: #### L [id number] ####[facility] ([facility])[address] [place] [address] ALT [Catalytic activity/Vol] 19 U/L Normal 7-52 [facility] Comment on above: Performed By: #### L [id number] ####[facility] ([facility])[address] [place] [address] Anion gap [Moles/Vol] 9 mmol/L Normal 7-20 [facility] Comment on above: Performed By: #### L [id number] ####[facility] ([facility])[address] [place] [address] AST [Catalytic activity/Vol] 28 U/L Normal 13-39 [facility] Comment on above: Performed By: #### L [id number] ####[facility] ([facility])[address] [place] [address] Bilirubin [Mass/Vol] 0.6 mg/dL Normal 0.3-1.0 [facility] Comment on above: Performed By: #### L [id number] ####[facility] [place] [address] Calcium [Mass/Vol] 8.9 mg/dL Normal 8.6-10.3 [facility] Comment on above: Performed By: #### L [id number] ####[facility] [place] [address] Chloride [Moles/Vol] 101 mmol/L Normal 98-107 [facility] Comment on above: Performed By: #### L [id number] ####[facility] [place], [place] [address] CO2 [Moles/Vol] 29 mmol/L Normal 21-[address] [facility] Comment on above: Performed By: #### L [id number] ####[facility] [place], [place] [address] Creatinine [Mass/Vol] 0.75 mg/dL Normal 0.60-1.20 [facility] Comment on above: Performed By: #### L [id number] ####[facility] ([facility])[address] [place] [address] GLOMERULAR FILTRATION RATE ML/MIN/1.73 SQ M.PREDICTED 85.1 mL/min/1.73m*2 Normal >60.0 [facility] Comment on above: Result Comment: The [facility]???s estimated glomerular filtration rate (eGFR) will no longer include consideration of race in its calculation. The National Kidney Foundation???s eGFR Task Force developed new recommendations for the estimation of the glomerular filtration rate in the [place] They recommend immediate implementation of the new equation refit without the race variable in all laboratories because the calculation does not include race. In addition to not including race in the calculation and reporting, it included diversity in its development, and has acceptable performance characteristics and potential consequences that do not disproportionately affect any one group of individuals. Performed By: #### L [id number] ####[facility] [place] [address] Glucose [Mass/Vol] 116 mg/dL High 70-100 [facility] Comment on above: Performed By: #### L [id number] ####[facility] [place] [address] Potassium [Moles/Vol] 4.2 mmol/L Normal 3.5-5.1 [facility] Comment on above: Performed By: #### L [id number] ####[facility] [place] [address] Protein [Mass/Vol] 7.0 g/dL Normal 6.0-8.3 [facility] Comment on above: Performed By: #### L [id number] ####[facility] ([facility])[address] [place] [address] Sodium [Moles/Vol] 135 mmol/L Low 136-145 [facility] Comment on above: Performed By: #### L [id number] ####[facility] ([facility])[address] [place] [address] Urea nitrogen [Mass/Vol] 12 mg/dL Normal 7-25 [facility] Comment on above: Performed By: #### L [id number] ####[facility] ([facility])[address] [place] [address] UREA NITROGEN/CREATININE (MASS RATIO) IN SER/PLAS 16.0 Normal [facility] Comment on above: Performed By: #### L [id number] ####[facility] (BE[facility])[address] [place] [address] CONSULTon 11-20-2023 CONSULT Clinical Nutrition Assessment: Name: Jenny Watt Room: [address] [place] [address] Date: 1950 Date of Visit: 11/20/23 Admission Dx: Diverticulitis [K57.92] Reason for assessment: consult for divericulitis, NPO Information obtained from: patient, medical record, and nursing Past Medical History: Diagnosis Date Abnormal ECG Arrhythmia Atrial fibrillation (CMS/HCC) Hypertension Hypothyroidism Paroxysmal atrial fibrillation (CMS/HCC) 05/15/2022 Sleep apnea Current Medications: acetaminophen, 1,000 mg, oral, q8h JESSY carvedilol, 6.25 mg, oral, BID with meals cefTRIAXone, 1 g, intravenous, q24h dilTIAZem CD, 180 mg, oral, Daily enoxaparin, 40 mg, subcutaneous, Daily levothyroxine, 50 mcg, oral, Daily lactated Ringer's, 75 mL/hr, Last Rate: 75 mL/hr (11/20/23 1038) Labs: 0 Lab Value Date/Time POCGLU 107 (H) 08/09/2021 0745 BUN 12 11/20/2023 1042 CREATININE 0.75 11/20/2023 1042 NA 135 (L) 11/20/2023 1042 K 4.2 11/20/2023 1042 PHOS 2.5 11/20/2023 1042 MG 2.5 11/20/2023 1042 HGB 11.5 (L) 11/20/2023 1042 WBC 9.02 11/20/2023 1042 I/O: Intake/Output Summary (Last 24 hours) at 11/20/2023 1620 Last data filed at 11/20/2023 1200 Gross per 24 hour Intake 477.5 ml Output -- Net 477.5 ml Allergies: No Known Allergies Nutrition Problems: Swallowing Assessment: Pt denies swallowing difficulty Mouth: Pt denies chewing difficulty Abdominal Assessment: Last BM 11/18; c/o N/V/D 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 CT showed acute sigmoid diverticulitis, concern for toxic megacolon. Nutrition Data/Clinical Indicators of Nutrition Status: Height: 167.6 cm (5' 6 ) Weight: (!) 141 kg (310 lb 6.5 oz) BMI (Calculated): 50.13 Wt change: Limited documented wt hx available; pt denies changes in wt Wt Readings from Last 10 Encounters: 11/20/23 (!) 141 kg (310 lb 6.5 oz) 07/08/20 136 kg (300 lb) IBW: 59.1 kg (130 lb) Nutrition Assessment: Visiting pt for initial assessment d/t consult for diverticulitis -> diet upgraded to CLD this AM (11/20/2023). 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 Meals consist of very thoroughly cooked vegetables, soups, and pizza. Discussed nutrition recommendations for diverticulitis and explained progression of diet- all questions answered and handout provided. Pt agreeable to offer of ONS this admission. Dietary Orders (From admission, onward) Start Ordered 11/20/23 0959 Clear Liquid Diet Diet effective now Question: Room Service? Answer: No 11/20/23 1000 Percent Meals Eaten (%): 50 (11/20/23 1200 : China Parsons RN) Meal Intakes: 50-75% Current supplement: Not yet offered Nutrition Risk: Moderate Nutrition Needs: Needs based on: ideal body weight (59.1 kg) Calorie needs: 7822-9496 kcals/day based on Equation: 25-30 kcal/kg Protein needs: 59-71 g/day based on 1.0-1.2 g/kg Fluid needs: 1773 ml/day based on 30 ml/kg Nutrition Diagnosis: Altered GI fxn Related to: diverticulitis As evidenced by: abdominal pain, diarrhea, CT abdomen at outside hospital (11/19/2023) Malnutrition Assessment: Nutrition Intake Percent Meals Eaten (%): 50 Inflammation: Hand Grasp/Motor Function/Sensation Assessment: Grasp R Hand Grasp: Moderate L Hand Grasp: Moderate (Enrichment Teacher strength not assessed by RD) Patient at risk for malnutrition according to hospital criteria, but does not meet the clinical characteristics per the Academy of Nutrition and Dietetics, and the [place] [employer] of Enteral and Parenteral Nutrition to support the diagnosis of malnutrition. Treatment Plan: Advance diet as medically feasible CLD -> low fiber diet Discussed nutrition recommendations for diverticulitis (low fiber diet) LR @ 75 ml/hr Trial Boost Breeze TID (8 fl oz provides 250 kcals and 9 g protein) and Liquacel BID (30 ml provides 90 kcals and 16 g protein) Monitor wt; prevent significant unplanned wt loss Monitor nutrition-related labs (magnesium, phosphorus, BMP), replace electrolytes prn Goals: Tolerate diet advancements/diet advanced to baseline Tolerance/adherence to nutrition supplement; >75% supplement No significant unplanned wt loss GI fxn wnl Nutrition-related labs wnl (magnesium, phosphorus, BMP) Contact the dietitian via [place] [employer] chat 8A-4P Saturday through Saturday or call extension [phone]. For weekends & holidays, the dietitian can be reached via pager [phone] from 9A-3P. Unable to respond to [employer] chat messages on Saturday & . [facility] --- Attestation signed by Saida Lai MD at 11/21/2023 8:37 AM Attending Physician Statement I have discussed the case, including pertinent history and exam findings with Dr. Tanner, surgical services tech and have personally seen the patient. I agree with the assessment, plan and orders as documented. [phone] pager [phone] phone [facility] General Surgery HISTORY & PHYSICAL Reason for Admission: diverticulitis History of Present Illness: Jenny Watt is a 73 y.o. female with PMH of atrial fibrillation s/p ablation on amiodarone and eliquis, HTN, hypothyroidism, and sleep apnea and past surgical history of a cholecystectomy who presents to [facility] as a direct transfer from [facility] with diverticulitis. Pt had been having on and off abdominal pain that had worsened over the last day. Pt has a 1 day history of no gas or bowels movements. Outside imaging results are pending, but pt claims that her medicine doctor at [facility]SH said her CT showed colon dilation and diverticulitis. Pt afebrile, and vitals are wnl. Pt labs significant for glucose 116, alk phos 118, and hgb 11.5, otherwise wnl. Today pt has passed gas and had a bowel movement. Review of Systems Constitutional: Negative for chills and fever. Respiratory: Negative for shortness of breath. Cardiovascular: Negative for chest pain. Gastrointestinal: Positive for abdominal pain, nausea and vomiting. Past Medical History: Diagnosis Date Abnormal ECG Arrhythmia Atrial fibrillation (CMS/HCC) Hypertension Hypothyroidism Paroxysmal atrial fibrillation (CMS/HCC) 05/15/2022 Sleep apnea Past Surgical History: Procedure Laterality Date ABLATION OF DYSRHYTHMIC FOCUS 08/09/2021 afib ablation CHOLECYSTECTOMY CTA CHEST W IV CONTRAST 08/08/2021 CT CHEST ANGIOGRAM W AND/OR WO IV CONTRAST [place]RAY CONVERSION No Known Allergies Current Facility-Administered Medications: acetaminophen (Tylenol) tablet 1,000 mg, 1,000 mg, oral, q8h JESSY, Casey Tanner MD, 1,000 mg at 11/20/23 1624 carvedilol (Coreg) tablet 6.25 mg, 6.25 mg, oral, BID with meals, SIMONE Boswell, 6.25 mg at 11/20/23 1624 cefTRIAXone (Rocephin) IVPB 1 g in NS 50 mL (Mini-Bag Plus), 1 g, intravenous, q24h, SIMONE Boswell, Stopped at 11/20/23 1110 dilTIAZem CD (Cardizem CD) 24 hr capsule 180 mg, 180 mg, oral, Daily, SIMONE Boswell, 180 mg at 11/20/23 1037 enoxaparin (Lovenox) syringe 40 mg, 40 mg, subcutaneous, Daily, SIMONE Boswell, 40 mg at 11/20/23 1446 lactated Ringer's infusion, 75 mL/hr, intravenous, Continuous, SIMONE Boswell, Last Rate: 75 mL/hr at 11/20/23 1038, 75 mL/hr at 11/20/23 1038 levothyroxine (Synthroid, Levoxyl) tablet 50 mcg, 50 mcg, oral, Daily, SIMONE Boswell, 50 mcg at 11/20/23 1037 morphine injection 2 mg, 2 mg, intravenous, q3h PRN OR morphine injection 4 mg, 4 mg, intravenous, q3h PRN, Casey Tanner MD Insert peripheral IV, , , Once AND Saline lock IV, , , Once AND sodium chloride flush 10 mL, 10 mL, intravenous, q8h PRN, SIMONE Boswell Social History Socioeconomic History Marital status: Spouse name: Not on file Number of children: Not on file Years of education: Not on file Highest education level: Not on file Occupational History Not on file Tobacco Use Smoking status: Former Types: Cigarettes Smokeless tobacco: Never Substance and Sexual Activity Alcohol use: Not Currently Drug use: Not on file Sexual activity: Not on file Other Topics Concern Not on file Social History Narrative Not on file Social Determinants of Health Financial Resource Strain: Low Risk (11/20/2023) Overall Financial Resource Strain (CARDIA) Difficulty of Paying Living Expenses: Not hard at all Food Insecurity: No Food Insecurity (11/20/2023) Hunger Vital Sign Worried About Running Out of Food in the Last Year: Never true Ran Out of Food in the Last Year: Not on file Transportation Needs: No Transportation Needs (11/20/2023) Transportation Lack of Transportation (Medical): No Lack of Transportation (Non-Medical): Not on file Physical Activity: Not on file Stress: Not on file Social Connections: Not on file Intimate Partner Violence: Unknown (11/20/2023) Humiliation, Afraid, Rape, and Kick questionnaire Fear of Current or Ex-Partner: No Emotionally Abused: Not on file Physically Abused: Not on file Sexually Abused: Not on file Housing Stability: Low Risk (11/20/2023) Housing Stability Vital Sign Unable to Pay for Housing in the Last Year: Not on file Number of Places Lived in the Last Year: Not on file Unstable Housing in the Last Year: No Family History Problem Relation Name Age of Onset Heart attack Father Atrial fib (more content not included)... Normal [facility] LACTIC ACID, PLASMAon 2023 LACTATE (MMOL/L) IN SER/PLAS 1.2 mmol/L Normal 0.5-2.2 [facility] Comment on above: Performed By: #### L [id number] ####[facility] ([facility])[address] [place] [address] NURSNOTEon 11-20-2023 NURSNOTE Bedside reporting do ne, rosenda Atkinson RN and Maia RN No complaints at this time Normal [facility] NURSNOTE Pt sits up at side o f bed, no c/o of pain, or SOB at this time Telemetry cont. On pt IV intact, no redness noted Pulse ox--98% on room air Pt. Up walking around in room for 10 min at 1830 pm [facility] NURSNOTE Pt up walking around in room, tolerates well , with walker. [facility] RIYA Lai notified th at we need admission orders. Notified via secure [employer] chat. Normal [facility] ULISESNOTE Pt arrived as a dire ct admission from [facility], no c/o of pain or SOB at this time Assessment completed Telemetry started on pt. Bed alarm on [facility] PHOSPHORUSon 11-20-2023 Magnesium [Mass/Vol] 2.5 mg/dL Normal 1.9-2.7 [facility] Comment on above: Performed By: #### L [id number] #### [facility] (BEAKER) [address] [place] [address] Performed By: #### L [id number] #### [facility] ([facility]) [address] [place] [address] PROTIME-INRon 11-20-2023 INR IN PPP BY COAGULATION ASSAY 1.27 High 0.90-1.10 [facility] Comment on above: Result Comment: ACCC P RECOMMENDED INR FOR WARFARIN THERAPY CONDITION INR PROPHYLAXIS OF VENOUS THROMBOSIS 2-3 (HIGH-RISK SURGERY) TREATMENT OF VENOUS THROMBOSIS 2-3 TREATMENT OF PULMONARY EMBOLISM 2-3 PREVENTION OF SYSTEMIC EMBOLISM: 2-3 ACUTE MYOCARDIAL INFARCTION TISSUE HEART VALVES VALVULAR HEART DISEASE ATRIAL FIBRILLATION RECURRENT SYSTEMIC EMBOLISM MECHANICAL HEART VALVE 2.5-3.5 FROM: ORAL ANTICOAGULANTS. MECHANISM OF ACTION, CLINICAL EFFECTIVENESS, AND OPTIMAL THERAPEUTIC RANGE. CHEST 1995;108:231S-246S. Performed By: #### L [id number] #### [facility] (ALL) [address] [place] [address] PROTHROMBIN TIME (PT) IN PPP BY COAGULATION ASSAY 15.8 Seconds High 12.3-14.8 [facility] Comment on above: Performed By: #### L [id number] #### [facility] (ALL) [address] [place] [address] 36on 08-01-2023 36 Regarding echo performed on 06/27/2023: Echo is stable per Lissa Spencer CNP. I called patient and made her aware. She asked about her lab work. I told her we didn't have a copy of it in her chart. Labs were then obtained from [facility] portal and uploaded into her culture media laboratory assistant for Lissa's review. I told her I'd call her back if he didn't like the results. She thanked me and verbalized understanding. [facility] Orders Onlyon 06-25-2023 Orders Only [id number] JustaGavi daojosie Magaña 1950 F Date Provider Department Center 06/25/2023 CRISTIANE MORALES Family History Problem Relation Age of Onset Heart attack Father Atrial fibrillation Father Atrial fibrillation Sister Family Status - Relation Status Age at Father Sister [facility] Office Visiton 06-18-2023 Follow-up visit [id number] Jenny Watt 1950 F Date Provider Department Center 06/18/2023 LISSA CASTRO Family History Problem Relation Age of Onset Heart attack Father Atrial fibrillation Father Atrial fibrillation Sister Family Status - Relation Status Age at Father Sister Level of Service:62884 [place] OFFICE/OUTPATIENT ESTABLISHED MOD MDM 30 MIN [facility] Orders Onlyon 02-20-2023 Orders Only [id number] JustaGavi daojosie Magaña 1950 F Date Provider Department Center 02/20/2023 VALENTE LYNN Family History Problem Relation Age of Onset Heart attack Father Atrial fibrillation Father Atrial fibrillation Sister Family Status - Relation Status Age at Father Sister [facility] 36on 12-11-2022 36 Patient called back and I made her aware. Lab results faxed to PCP. [facility] 36on 12-10-2022 36 Please let her know her CXR was normal. Her labs showed her kidney function, liver function and blood counts were all normal. Her bad cholesterol levels were above goal. She is at 119, would like for her to be less than 100 for stroke and [place] prevention. Recommend heart healthy diet such as the mediterranean diet and trying to implement some form of exercising. Her thyroid function is a little elevated but better since her last labs we have on file from 2019. Please make sure she follows up with her PCP for her thyroid management. Continue with follow-up amio testing q6 months. Thank you! [facility] Telephoneon 12-10-2022 Telephone [id number] Jenny Watt 1950 F Date Provider Department Center 12/10/2022 YUAN ACE [facility] Family History Problem Relation Age of Onset Heart attack Father Atrial fibrillation Father Atrial fibrillation Sister Family Status - Relation Status Age at Father Sister [facility] Covid-19 PCR (CVDTB)on 02-16 SARS-CoV-2 (COVID-19) RNA SP+probe Ql (Unsp spec) Not detected Normal NOT DETECTED [facility] Comment on above: Result Comment: When diagnostic [...] for this test is supported by the Label St[employer] of Health and Human Service's declaration that [...] used). Performed By: #### C VDTB #### [facility] [address] [place] [address] Dr. Maik Singleton BASIC METABOLIC PANELon - Calcium [Mass/Vol] 8.1 mg/dL Low 8.6-10.3 [facility] Comment on above: Order Comment: No: D o not add to previous draw Performed By: #### 1 69, [id number] #### [facility] [address] [place] [address], [place] Chloride [Moles/Vol] 99 mmol/L Normal 98-107 [facility] Comment on above: Order Comment: No: D o not add to previous draw Performed By: #### 1 69, 14935 #### [facility] [address] [place] [address], [place] CO2 [Moles/Vol] 27 mmol/L Normal 21-31 [facility] Comment on above: Order Comment: No: D o not add to previous draw Performed By: #### 1 69, 47057 #### [facility] [address] [place] [address], [place] Creatinine [Mass/Vol] 0.82 mg/dL Normal 0.60-1.20 [facility] Comment on above: Order Comment: No: D o not add to previous draw Performed By: #### 1 69, 39255 #### [facility] [address] [place] [address], [place] GFR/1.73 sq M.predicted among blacks MDRD (S/P/Bld) [Vol rate/Area] mL/min/{1.73_m2} Normal >60 [facility] Comment on above: Order Comment: No: D o not add to previous draw Performed By: #### 1 69, 02810 #### [facility] [address] [place] [address], [facility] GFR/1.73 sq M.predicted among non-blacks MDRD (S/P/Bld) [Vol rate/Area] mL/min/{1.73_m2} Normal >60 [facility] Comment on above: Order Comment: No: D o not add to previous draw Performed By: #### 1 69, 58311 #### [facility] [address] [place] [address], [facility] Glucose [Mass/Vol] 109 mg/dL High 70-100 [facility] Comment on above: Order Comment: No: D o not add to previous draw Performed By: #### 1 69, 06692 #### [facility] [address] [place] [id number], [facility] Potassium [Moles/Vol] 4.0 mmol/L Normal 3.5-5.1 [facility] Comment on above: Order Comment: No: D o not add to previous draw Performed By: #### 1 69, 54738 #### [facility] [address] [place] [address], [facility] Sodium [Moles/Vol] 134 mmol/L Low 136-145 [facility] Comment on above: Order Comment: No: D o not add to previous draw Performed By: #### 1 69, 62681 #### [facility] [address] [place] [address], [facility] Urea nitrogen [Mass/Vol] 12 mg/dL Normal 7-25 [facility] Comment on above: Order Comment: No: D o not add to previous draw Performed By: #### 1 69, 82087 #### [facility] [address] [place] [id number], [facility] CBC COMPLETE BLOOD COUNTon 0 2- Erythrocyte distribution width (RBC) [Ratio] 15.5 % High 11.5-15.0 [facility] Comment on above: Order Comment: No: D o not add to previous draw Performed By: #### 5 0608 #### [facility] [address] [place] [id number], [facility] Hematocrit (Bld) [Volume fraction] 36.9 % Normal 36.0-45.0 [facility] Comment on above: Order Comment: No: D o not add to previous draw Performed By: #### 5 0608 #### [facility] [address] [place] [id number], [facility] Hemoglobin (Bld) [Mass/Vol] 11.5 g/dL Low 12.0-15.0 [facility] Comment on above: Order Comment: No: D o not add to previous draw Performed By: #### 5 0608 #### [facility] [address] [place] [id number], [facility] MCH (RBC) [Entitic mass] 27.1 pg Normal 27.0-33.0 [facility] Comment on above: Order Comment: No: D o not add to previous draw Performed By: #### 5 0608 #### [facility] [address] [place] [address], [facility] MCHC (RBC) [Mass/Vol] 31.2 g/dL Low 32.0-35.0 [facility] Comment on above: Order Comment: No: D o not add to previous draw Performed By: #### 5 0608 #### [facility] [address] [place] [address], [facility] MCV (RBC) [Entitic vol] 87.0 fL Normal 82.0-98.0 [facility] Comment on above: Order Comment: No: D o not add to previous draw Performed By: #### 5 0608 #### [facility] [address] [place] [id number], [facility] Nucleated RBC/100 WBC (Bld) [Ratio] 0 % Normal 0-0 [facility] Comment on above: Order Comment: No: D o not add to previous draw Performed By: #### 5 0608 #### [facility] [address] [place] [address], [facility] PLAT CNT 258 10*3/uL Normal 150-[address] [facility] Comment on above: Order Comment: No: D o not add to previous draw Performed By: #### 5 0608 #### [facility] [address] [place] [address], [facility] RBC (Bld) [#/Vol] 4.24 10*6/uL Normal 3.80-5.00 [facility] Comment on above: Order Comment: No: D o not add to previous draw Performed By: #### 5 0608 #### [facility] [address] [place] [address], [facility] WBC (Bld) [#/Vol] 10.20 10*3/uL Normal 4.00-10.60 [facility] Comment on above: Order Comment: No: D o not add to previous draw Performed By: #### 5 0608 #### [facility] [address] [facility] [address]. [address] MAGNESIUM BLOODon 08-10-2021 Magnesium [Mass/Vol] 2.2 mg/dL Normal 1.9-2.7 The [facility] [facility] Comment on above: Order Comment: No: D o not add to previous draw Performed By: #### 1 0070, [id number] #### [facility] [address] [facility]. [address] APTTon 08-09-2021 aPTT Coag (Bld) [Time] 26.9 s Normal 25.0-35.0 [facility] Comment on above: Result Comment: ALL RESULTS [...] THIS PURPOSE. Performed By: #### 5 6101, [id number] #### [facility] [address] [facility] [place] [address], [facility] CBC W/DIFFon 08-09-2021 ABS IMM GRANS 0.0 10*3/uL Normal 0.0-0.2 The [facility] Comment on above: Performed By: #### 5 0103 #### [facility] [address] [facility] [address], [facility] ABS NEUTROPHILS 5.1 10*3/uL Normal 1.6-7.6 The [facility] Comment on above: Performed By: #### 5 0103 #### [facility] [address] [facility] [place] [address], [facility] Basophils (Bld) [#/Vol] 0.0 10*3/uL Normal 0.0-0.2 [facility] Comment on above: Performed By: #### 5 0103 #### [facility] [address] [facility] [address], [facility] Basophils/100 WBC (Bld) 0.4 % Normal 0.0-1.0 [facility] Comment on above: Performed By: #### 5 0103 #### [facility] [address] [facility] [address], [facility] Eosinophils (Bld) [#/Vol] 0.2 10*3/uL Normal 0.0-0.5 [facility] Comment on above: Performed By: #### 5 0103 #### [facility] [address] [facility] [place] [address], [facility] Eosinophils/100 WBC (Bld) 2.3 % Normal 0.0-6.0 [facility] Comment on above: Performed By: #### 5 3 #### [facility] [address] [place] [id number], [facility] Erythrocyte distribution width (RBC) [Ratio] 15.3 % High 11.5-15.0 [facility] Comment on above: Performed By: #### 5 0103 #### [facility] [address] [facility] [place] [address], [facility] Hematocrit (Bld) [Volume fraction] 37.4 % Normal 36.0-45.0 [facility] Comment on above: Performed By: #### 5 0103 #### [facility] [address] [facility] [place] [address], [facility] Hemoglobin (Bld) [Mass/Vol] 11.5 g/dL Low 12.0-15.0 [facility] Comment on above: Performed By: #### 5 0103 #### [facility] [address] IMMATURE GRANS 0.3 % Normal 0.0-1.0 [facility] Comment on above: Performed By: #### 5 0103 #### [facility] [address] Lymphocytes (Bld) [#/Vol] 1.1 10*3/uL Low 1.2-4.0 [facility] Comment on above: Performed By: #### 5 0103 #### [facility] [address] [place] [address], [facility] Lymphocytes/100 WBC (Bld) 16.1 % Low 20.0-45.0 [facility] Comment on above: Performed By: #### 5 0103 #### [facility] [address] [facility] [place] [address], [facility] MCH (RBC) [Entitic mass] 26.9 pg Low 27.0-33.0 [facility] Comment on above: Performed By: #### 5 3 #### [facility] [address] [facility] [place] [address], [facility] MCHC (RBC) [Mass/Vol] 30.7 g/dL Low 32.0-35.0 [facility] Comment on above: Performed By: #### 102 #### [facility] [address] MCV (RBC) [Entitic vol] 87.4 fL Normal 82.0-98.0 [facility] Comment on above: Performed By: #### 102 #### [facility] [address] [place] [address], [facility] Monocytes (Bld) [#/Vol] 0.6 10*3/uL Normal 0.1-1.0 [facility] Comment on above: Performed By: #### 5 102 #### [facility] [address] MONOS 8.8 % Normal 5.0-12.0 [facility] Comment on above: Performed By: #### 5 102 #### [facility] [address] Neutrophils/100 WBC (Bld) 72.1 % High 40.0-72.0 [facility] Comment on above: Performed By: #### 102 #### [facility] [address] Nucleated RBC/100 WBC (Bld) [Ratio] 0 % Normal 0-0 [facility] Comment on above: Performed By: #### 5 102 #### [facility] [address] [place] [address], [facility] PLAT CNT 271 10*3/uL Normal 150-[address] [facility] Comment on above: Performed By: #### 102 #### [facility] [address] [place] [address], [facility] RBC (Bld) [#/Vol] 4.28 10*6/uL Normal 3.80-5.00 [facility] Comment on above: Performed By: #### 102 #### [facility] [address] [facility]. [address] WBC (Bld) [#/Vol] 7.02 10*3/uL Normal 4.00-10.60 [facility] Comment on above: Performed By: #### 5 0103 #### [facility] [address] [facility]. [address] COMP METABOLIC PANELon 08-09 Albumin [Mass/Vol] 3.8 g/dL Normal 3.5-5.7 The [facility] Comment on above: Performed By: #### 0 0121 #### [facility] [address] ALKALINE PHOSPH 140 IU/L High 34-104 [facility] Comment on above: Performed By: #### 0 0121 #### [facility] [address] ALT [Catalytic activity/Vol] 13 U/L Normal 7-52 [facility] Comment on above: Performed By: #### 0 0121 #### [facility] [address] AST [Catalytic activity/Vol] 17 U/L Normal 13-39 [facility] Comment on above: Performed By: #### 0 0121 #### [facility] [address] [facility]. [address] Bilirubin [Mass/Vol] 0.5 mg/dL Normal 0.3-1.0 [facility] Comment on above: Performed By: #### 0 0121 #### [facility] [address] [facility]. [address] Calcium [Mass/Vol] 8.7 mg/dL Normal 8.6-10.3 The [facility] Comment on above: Performed By: #### 0 0121 #### [facility] [address] [place] [address], [place] Chloride [Moles/Vol] 104 mmol/L Normal 98-107 [facility] Comment on above: Performed By: #### 0 0121 #### [facility] [address] [place] [address], [place] CO2 [Moles/Vol] 28 mmol/L Normal 21-31 [facility] Comment on above: Performed By: #### 0 0121 #### [facility] [address] [place] [address], [place] Creatinine [Mass/Vol] 0.74 mg/dL Normal 0.60-1.20 [facility] Comment on above: Performed By: #### 0 0121 #### [facility] [address] [place] [address], [place] GFR/1.73 sq M.predicted among blacks MDRD (S/P/Bld) [Vol rate/Area] mL/min/{1.73_m2} Normal >60 [facility] Comment on above: Performed By: #### 0 0121 #### [facility] [address] [place] [address], [place] GFR/1.73 sq M.predicted among non-blacks MDRD (S/P/Bld) [Vol rate/Area] mL/min/{1.73_m2} Normal >60 [facility] Comment on above: Performed By: #### 0 0121 #### [facility] [address] [place] [address], [place] Glucose [Mass/Vol] 116 mg/dL High 70-100 The [facility] Comment on above: Performed By: #### 0 0121 #### [facility] [address] [place] [address], [place] Potassium [Moles/Vol] 3.9 mmol/L Normal 3.5-5.1 [facility] Comment on above: Performed By: #### 0 0121 #### [facility] [address] [place] [address], [facility] Protein [Mass/Vol] 6.4 g/dL Normal 6.0-8.3 The [facility] Comment on above: Performed By: #### 0 0121 #### [facility] [address] [place] [address], [facility] Sodium [Moles/Vol] 138 mmol/L Normal 136-145 The [facility] Comment on above: Performed By: #### 0 0121 #### [facility] [address] [place] [address], [facility] Urea nitrogen [Mass/Vol] 10 mg/dL Normal 7-25 [facility] Comment on above: Performed By: #### 0 0121 #### [facility] [address] Cardiovascular Lab Reporton 08-09-2021 Cardiovascular Lab Report [facility] Patient Name: Jenny Watt [facility] MR #: [id number] Physician: Charli Pulido MD Department of Service Date: 08/09/2021 Medicine Birthdate: 1950 Division of Room #: 3CD 215164 Cardiology Adult Cardiovascular Services [place] [address] Cardiovascular Laboratory Report ATRIAL FIBRILLATION ABLATION PROCEDURE [...] in Afib. Esophagus was mapped using the GlucoTecUND 3D mapping software with quadripolar catheter and [...] perform (more content not included)... Normal [facility] POC GLUCOSE LABon 08-09-2021 Glucose [Mass/Vol] 107 mg/dL High 70-100 [facility] Comment on above: Performed By: #### 8 5499 #### [facility] [address] [facility]. [address] PROTHROMBIN TIMEon 2 INR Coag (PPP) [Relative time] 1.01 {INR} Normal 0.91-1.16 [facility] Comment on above: Result Comment: ACCC P [...] CHEST 1995;108:[id number]. Performed By: #### 5 6101, 80227 #### [address] PT Coag (PPP) [Time] 13.3 s Normal 12.3-14.8 [facility] Comment on above: Result Comment: ALL RESULTS MUST BE INTERPRETED WITH RESPECT TO BLOOD DRAWING ARTIFACT OR DILUTION ERROR OF ANTICOAGULANT AT THE TIME OF SAMPLING. Performed By: #### 5 6101, 40608 #### [facility] [address] CTA CHESTon 08-08-2021 CTA CHEST [facility] Department of Radiology [address] [place] [id number] ===== Patient Name: JENNY WATT : 1950 Sex: [...] , AFib Ablation 08/09/21 Exam: CTA CHEST ===== CTA CHEST 08/08/2021 1:00 PM CLINICAL INDICATIONS: [...] examination. Electronically signed: Audrey Umana. Transcribed by: [email or web address], User Resident: Electronically Signed by: AUDREY UMANA @ 08/08/2021 03:05 PM Normal [facility] Comment on above: Order Comment: , Gavin b Ablation 08/09/21 Covid-19 PCR (CVDTB)on 05-18 SARS-CoV-2 (COVID-19) RNA SP+probe Ql (Unsp spec) Not detected Normal NOT DETECTED The [facility] Comment on above: Result Comment: This test is not yet approved or cleared by the [place] FDA. When there are no FDA-approved or cleared tests available, and other criteria are met, FDA can make tests available under an emergency access mechanism called an Emergency Use Authorization (EUA). The EUA for this test is supported by the [employer] of Health and Human Service's (HHS's) declaration [...] consistent with SARS-CoV-2. Performed By: #### C TB #### [facility] [address] [place] [address] [address] Maik Singleton Encounters Encounter Date Encounter Type Care Provider Facility Start: 01-21-2024 ambulatory P[facility] BACH [facility] Start: 11-26-2023 ambulatory Pasha BACH Facility:[facility] [place] Start: 11-21-2023 Evaluation and manag ement of inpatient [facility] Start: 11-20-2023 Evaluation and manag ement of inpatient ROHIT DELCID [facility] Start: 11-20-2023 End: 11-22-2023 Evaluation and management of inpatient EDUARDO WALKER [facility] Start: 06-18-2023 End: 06-18-2023 ambulatory [facility] Start: 03-07-2022 End: 03-07-[address] KERRI SMITH Facility: Start: 08-09-2021 End: 08-10-2021 ambulatory KERRI SMITH Facility:[facility] Start: 06-18-2021 Encounter for prepro cedural laboratory examination CHARLI PULIDO [facility] Start: 06-14-2021 End: 06-14-[address] DOCTOR DIXON Facility:[facility] Start: 06-12-2021 End: 06-12-2021 ambulatory CHARLI PULIDO Facility:[facility] Start: 06-12-2021 End: 06-12-2021 Encounter for preprocedural laboratory examination CHARLI PULIDO Facility:[facility] Payers Date Payer Category Payer Medicare [id number] 1959 Private Health Insurance [id number] 1950 Unknown [id number] 1950 Unknown [id number] [id number] 1950 Unknown [id number] [id number] [id number] 1950 Unknown [id number] 2.16.84 [id number] 1950 Unknown [id number] [id number] Progress note 11-22-2023 Note Date & Type Note Facility 11-22-2023 Note [facility] General Surgery DAILY PROGRESS NOTE Subjective Observed patient at bedside. Patient reported feeling fantastic this morning. She denied abdominal pain, nausea, vomiting, and bloating. She been having bowel movements on Sunday 11/19 and has felt better since then. She said her bowel movements have been soft, but formed. She is tolerating her regular diet with no stomach pain or bloating after she eats. She denies shortness of breath, fever, or chills. Patient said that she is ready to go home. No acute problems over night. Objective Vitals: Vitals: 11/22/23 0403 BP: 137/74 Pulse: 71 Resp: 15 Temp: 36.6 ???C (97.8 ???F) SpO2: 96% I/O last 3 completed shifts: In: 1513.8 (10.8 mL/kg) [I.V.:1513.8 (10.8 mL/kg)] Out: - (0 mL/kg) Weight: 140 kg No intake/output data recorded. Physical Exam General Appearance: Awake, Alert & Oriented x3, No Acute Distress Neck: Trachea Midline, No jugular venous distension Pulmonary: Unlabored breathing on room air. No expiratory wheeze. Cardiac: Regular rate Abdomen: soft, obese, non distended, and non tender to palpation Extremity: No edema Bilateral Upper and lower Extremities Skin: warm and dry without rash Eyes: no scleral icterus Labs: Results from last 7 days Lab Units 11/22/23 0447 11/21/23 0553 11/20/23 1042 WBC AUTO 10*3/uL 7.75 7.22 9.02 HEMOGLOBIN g/dL 11.0* 11.0* 11.5* HEMATOCRIT % 35.2* 34.7* 36.1 PLATELETS AUTO 10*3/uL 341 349 388 Results from last 7 days Lab Units 11/22/23 0447 11/21/23 0553 11/20/23 1042 SODIUM mmol/L 135* 135* 135* POTASSIUM mmol/L 3.9 3.9 4.2 CO2 mmol/L 26 26 29 BUN mg/dL 8 8 12 CREATININE mg/dL 0.78 0.75 0.75 Results from last 7 days Lab Units 11/20/23 1042 INR 1.27* Medications: acetaminophen, 1,000 mg, oral, q8h JESSY carvedilol, 6.25 mg, oral, BID with meals cefTRIAXone, 1 g, intravenous, q24h dilTIAZem CD, 180 mg, oral, Daily enoxaparin, 40 mg, subcutaneous, BID levothyroxine, 50 mcg, oral, Daily Imaging: CT transfer of outside films This order has been auto-finalized and does not contain a result. Assessment/Plan Jenny Watt is a 73 y.o. female with diverticulitis. Discharge home today Analgesics Antiemetics IV abx: ceftriaxone, course ends today Ambulate/OOB DVT ppx: SCDs, lovenox BID Incentive spirometry Reji Coker Medical Student, M3 Read and Reviewed by: Casey Tanner MD PGY-1 General Surgery Resident [facility] Clinical Note 11-22-2023 Note Date & Type Note Facility 11-22-2023 Note Problem: Pain Goal: LTG-Verbalize decrease in pain Outcome: Progressing Goal: LTG-Demostrate that the pain does not impair ADLs Outcome: Progressing Goal: STG-Pt will verbalize decreased discomfort Outcome: Progressing Problem: Pain - Adult Goal: Verbalizes/displays adequate comfort level or baseline comfort level Outcome: Progressing Problem: Safety - Adult Goal: Free from fall injury Outcome: Progressing Flowsheets (Taken 11/21/2023 1902) Free from fall injury: Assess patient frequently for physical needs Identify cognitive and physical deficits and behaviors that affect risk of falls [place] fall precautions as indicated by assessment Educate patient/family on patient safety, including physical limitations Instruct patient to call for assistance with activity based on assessment Modify environment to reduce risk of injury Problem: Discharge Planning Goal: Discharge to home or other facility with appropriate resources Outcome: Progressing Problem: Chronic Conditions and Co-morbidities Goal: Patient's chronic conditions and co-morbidity symptoms are monitored and maintained or improved Outcome: Progressing Flowsheets (Taken 11/21/2023 1902) Care Plan - Patient's Chronic Conditions and Co-Morbidity Symptoms are Monitored and Maintained or Improved: Monitor and assess patient's chronic conditions and comorbid symptoms for stability, deterioration, or improvement Collaborate with multidisciplinary team to address chronic and comorbid conditions and prevent exacerbation or deterioration Update acute care plan with appropriate goals if chronic or comorbid symptoms are exacerbated and prevent overall improvement and discharge [facility] Progress note 11-21-2023 Note Date & Type Note Facility 11-21-2023 Note Attestation signed by Saida Lai MD at 11/23/2023 2:06 PM Attending Physician Statement I have discussed the case, including pertinent history and exam findings with Dr. Tanner, surgical services tech and have personally seen the patient. I agree with the assessment, plan and orders as documented. [phone] pager [phone] phone [facility] General Surgery DAILY PROGRESS NOTE Subjective NAEO. Pt passing gas and having bowel movements. Tolerated clear liquid diet. Pt denies abdominal pain. Pt denies nausea and vomiting. Objective Vitals: Vitals: 11/21/23 0815 BP: (!) 129/99 Pulse: 80 Resp: 23 Temp: 36.3 ???C (97.3 ???F) SpO2: 98% I/O last 3 completed shifts: In: 2467.8 (17.2 mL/kg) [P.O.:1149; I.V.:1268.8 (8.9 mL/kg); IV Piggyback:50] Out: - (0 mL/kg) Weight: 143.1 kg I/O this shift: In: 580 [I.V.:580] Out: - Physical Exam General Appearance: Awake, Alert & Oriented x3, No Acute Distress Neck: Trachea Midline, No jugular venous distension Pulmonary: Unlabored breathing on room air Cardiac: Regular rate, normotensive Abdomen: soft, non tender, non distended Extremity: No edema Bilateral Upper and lower Extremities Skin: warm and dry without rash Eyes: no scleral icterus Lines, Drains, Tubes: none Labs: Results from last 7 days Lab Units 11/21/23 0553 11/20/23 1042 WBC AUTO 10*3/uL 7.22 9.02 HEMOGLOBIN g/dL 11.0* 11.5* HEMATOCRIT % 34.7* 36.1 PLATELETS AUTO 10*3/uL 349 388 Results from last 7 days Lab Units 11/21/23 0553 11/20/23 1042 SODIUM mmol/L 135* 135* POTASSIUM mmol/L 3.9 4.2 CO2 mmol/L 26 29 BUN mg/dL 8 12 CREATININE mg/dL 0.75 0.75 Results from last 7 days Lab Units 11/20/23 1042 INR 1.27* Medications: acetaminophen, 1,000 mg, oral, q8h JESSY carvedilol, 6.25 mg, oral, BID with meals cefTRIAXone, 1 g, intravenous, q24h dilTIAZem CD, 180 mg, oral, Daily enoxaparin, 40 mg, subcutaneous, Daily levothyroxine, 50 mcg, oral, Daily lactated Ringer's, 75 mL/hr, Last Rate: 75 mL/hr (11/21/23 1115) Imaging: Electrocardiogram, 12-lead Sinus rhythm with 1st degree A-V block Inferior infarct , age undetermined Abnormal ECG When compared with ECG of 09-AUG-2021 15:27, Inferior infarct is now Present Confirmed by Emanuel ZARAGOZA, ZACK Shukla (57) on 11/20/2023 3:53:[address] transfer of outside films This order has been auto-finalized and does not contain a result. Assessment/Plan Jenny Watt is a 73 y.o. female with diverticulitis. Advance to GI soft Discontinue IV fluids Daily labs Outside imaging pending Analgesics Antiemetics IV abx: ceftriaxone Ambulate/OOB DVT ppx: SCDs, lovenox BID Dispo: discharge home 11/20 or 11/21 Casey Tanner MD General Surgery Resident, PGY-0 I can be reached via [employer] 6a-6p [facility] Clinical Note 11-20-2023 Note Date & Type Note Facility 11-20-2023 Note Problem: Pain Goal: LTG-Verbalize decrease in pain Outcome: Progressing Goal: LTG-Demostrate that the pain does not impair ADLs Outcome: Progressing Goal: STG-Pt will verbalize decreased discomfort Outcome: Progressing [facility] Progress note 11-20-2023 Note Date & Type Note Facility 11-20-2023 Note 11/20/23 1129 Referral 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 No Patient's goal for discharge Patient's goal for discharge is to retun home with daughter Does the patient need discharge transport arranged? Maybe Screened via RU. Patient is from home, with daughter, and reports goal to return at discharge. She endorses utilization of a shower chair, walker, and CPAP at night. [facility] Progress note 11-20-2023 Note Date & Type Note Facility 11-20-2023 Note 11/20/23 0946 Admission Assessment Questions Verify insurance with patient Yes Do you understand medical disease or what brought you into the hospital? Yes Who is your current PCP? Kerri Smith MD Can I schedule a follow up appointment for you at the time of discharge? Yes (prefers afternoon appointments) Do you understand why you are taking your current medications? Yes Are you taking your medications as prescribed? Yes Did patient provide teach back? No Would you like use our pharmacy i[facility] to fill your new medications at the time of Discharge? Yes Does the patient have a case checker assigned to them through their insurance? No Living Arrangement (Current/Prior to Hospitalization) Private residence (lives at home with daughter) Does the patient have history of HHC or SNF? No Assistive Device Walker;Other (Comment) (shower chair, CPAP at night) Patient's goal for discharge Home Was patient reminded that goal for discharge is 11am? Yes Does the patient have transportation at discharge? Yes Type of Residence Private residence Is PT/OT appropriate? No Is PT/OT ordered? No Is SW consult appropriate? No Is SW consult ordered? No Do you understand the benefits of MyChart? Yes Were you able to send link and activate MyChart? No [facility] Progress note 06-18-2023 Note Date & Type Note Facility 06-18-2023 Note [facility]rophys[facility] Consult Note Reason for visit: AF [...] PMHx: a.fib; HTN, anxiety FMHx: father - [place]; sister - a.fib; father - a.fib Echocardiogram [...] No current facilit (more content not included)... [facility] Progress note 06-18-2023 Note Date & Type [...] All other systems reviewed and are negative. [facility] Clinical Note 06-14-2021 Note Date & Type Note Facility 06-14-2021 Note [facility] [place], [place] NAME: JENNY WATT DATE OF : MEDICAL REC#: [id number] MUSIC WRITER: CASSIE DOMINGUEZ ADMIT DATE: 06/14/2021 08:37:00 SUPERVISORY LIFEGUARD DATE: 06/20/2021 08:00 DICTATING PHYSICIAN: CHARLI PULIDO DICTATION DATE: 06/14/2021 18:00 duplicate entry Electronically Authenticated and Edited by: Charli Pulido MD on 12/05/2021 07:50 PM EDT [facility] [place], [place] NAME: JENNY WATT DATE OF : MEDICAL REC#: [id number] MUSIC WRITER: CASSIE DOMINGUEZ ADMIT DATE: 06/14/2021 08:37:00 SUPERVISORY LIFEGUARD DATE: 06/20/2021 08:00 DICTATING PHYSICIAN: CHARLI PULIDO [...] to proceed with cardioversion for going into . She has been on amiodarone anticoagulation. Versed __ mg and 37.5 mcg of fentanyl was given to achieve adequate sedation. The patches were placed in an anterior/posterior direction. 360 joules of [place]'s cardioversion on two occasions did not convert [...] Approved by: CHARLI PULIDO 12/05/2021 19:42:00 [facility] Summary Purpose Family History No Family History Records FoundNo Family History Records FoundNo Family History Records FoundNo Family History Records Found Advance Directives No Advanced Directives Records FoundNo Advanced Directives Records FoundNo Advanced Directives Records FoundNo Advanced Directives Records Found Additional Source Comments INFORMATION SOURCE (unrecogn ized section and content) DATE CREATED AUTHOR 08/17/2021 [facility] DATE CREATED AUTHOR AUTHOR'S ORGANIZ ATION 05/19/2022 [facility] DATE CREATED AUTHOR AUTHOR'S ORGANIZ ATION 12/04/2023 [facility] DATE CREATED AUTHOR AUTHOR'S ORGANIZ ATION 12/19/2023 [facility] FOR RECORDS PERTAINING TO PATIENTS WHO ARE [...] BE BASED ON THE PRIMARY CLINICAL RECORDS. [employer] [facility]. provides no warranty or guarantee of the accuracy or completeness of information in this document.
[2024-01-18] MEDS: ONDANSETRON PF 4 MG/2 ML VIAL IV ×2 (07:58→15:55)
[2024-01-18] MEDS: MORPHINE SULFATE 4 MG/ML VIAL IV (07:58)
[2024-01-18 08:01] LABS: Basophils Percent Auto 0.1 % (0.2-2.0); Eosinophils Percent Auto 0.4 % (0.9-7.0); Hematocrit 38.5 % (36.0-48.0); Hemoglobin 12.2 g/dL (12.0-16.0); Immature Granulocytes Abs Auto 0.04 10^3/uL (0.00-0.03); Immature Granulocytes Pct Auto 0.4 % (0.0-0.5); Lymphocytes Absolute Auto 1.1 10^3/uL (1.2-3.8); Lymphocytes Percent Auto 9.5 % (20.5-60.0); Mean Corpuscular HGB Conc 31.7 g/dL (29.9-35.2); Mean Corpuscular Hemoglobin 26.8 pg (26.7-34.0); Mean Corpuscular Volume 84.4 fL (81.0-99.0); Mean Platelet Volume 10.1 fL (9.5-13.5); Monocytes Absolute Auto 0.8 10^3/uL (0.3-0.8); Monocytes Percent Auto 6.8 % (1.7-12.0); Neutrophils Absolute Auto 9.2 10^3/uL (1.4-6.5); Neutrophils Percent Auto 82.8 % (43.0-75.0); Platelet Count 360 10^3/uL (150-450); Red Blood Count 4.56 10^6/uL (4.20-5.40); Red Cell Distribution Width 17.1 % (11.0-15.0); White Blood Count 11.1 10^3/uL (4.0-11.0)
[2024-01-18 08:13] LABS: Anion Gap 13.7; BUN Creatinine Ratio 11.1; Calcium 9.7 mg/dL (8.5-10.1); Carbon Dioxide 25.9 mmol/L (21.0-32.0); Chloride 99 mmol/L (98-107); Estimated GFR (African America >60 (>=60); Estimated GFR (Non-African Ame >60 (>=60); Glucose 142 mg/dL (74-106); Potassium 3.6 mmol/L (3.5-5.1); Sodium 135 mmol/L (136-145)
[2024-01-18 08:17] LABS: Alanine Aminotransferase 48 U/L (14-59); Albumin Globulin Ratio 0.8; Albumin Level 3.5 g/dL (3.4-5.0); Alkaline Phosphatase 136 U/L (46-116); Amylase 23 U/L (25-115); Aspartate Amino Transferase 31 U/L (15-37); Bilirubin Direct 0.2 mg/dL (0.0-0.2); Bilirubin Total 0.7 mg/dL (0.2-1.0); Globulin 4.5 g/dL
[2024-01-18] MEDS: PROMETHAZINE HCL 12.5 MG in 0.9 % SODIUM CHLORIDE 50 ML 202 MG IV (08:51)
[2024-01-18] MEDS: CIPROFLOXACIN IN 5 % DEXTROSE 400 MG/200 ML PREMIX 200 MG IV (09:18)
[2024-01-18 10:27] LABS: Bilirubin Urine NEGATIVE (NEGATIVE); Blood Urine NEGATIVE (NEGATIVE); Clarity Urine CLEAR (CLEAR); Color Urine YELLOW (YELLOW); Glucose Urine UA NEGATIVE (NEGATIVE); Ketones Urine NEGATIVE (NEGATIVE); Leukocyte Esterase Urine NEGATIVE (NEGATIVE); Nitrite Urine NEGATIVE (NEGATIVE); Protein Urine NEGATIVE (NEG/TRACE); Specific Gravity Urine <=1.005 (1.005-1.025); Urobilinogen Urine 0.2 EU/dL (0.2-1.0)
--- OUTSIDE RECORDS SUMMARY | 2024-01-18 10:32 | XMS_ITS | CCD ---
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) drug therapy; Translations: [Other correction (current) drug therapy] Onset: 06-18-2023 Episodic Other lower respiratory disease (1 source) Other forms of dyspnea; Translations: [OTHER FORMS OF DYSPNEA] Onset: 06-27-2021 Episodic Unclassified (1 source) CONTACT W/AND (SUSP) EXPOS COVID-19; Translations: [CONTACT W/AND (SUSP) EXPOS COVID-19] Onset: 03-07-2022 Results Test Name Value Interpretation Reference Range Facility Physician Referralon 024 Physician Referral [id number] [id number] FF Normal [facility] BASIC METABOLIC PANELon Anion gap [Moles/Vol] 12 mmol/L Normal 7- [facility] Comment on above: Performed By: #### L [id number] #### [facility] ([facility]AKER) [address] [place] [address] Calcium [Mass/Vol] 8.5 mg/dL Low 8.6-10.3 [facility] Comment on above: Performed By: #### L [id number] #### [facility] ([facility]AKER) [address] [place] [address] Chloride [Moles/Vol] 101 mmol/L Normal 98-[address] [facility] Comment on above: Performed By: #### L [id number] #### [facility] ([facility]) [address] [place] [address] CO2 [Moles/Vol] 26 mmol/L Normal 21-31 [facility] Comment on above: Performed By: #### L [id number] #### [facility] ([facility]) [address] [place] [address] Creatinine [Mass/Vol] 0.78 mg/dL Normal 0.60-1.[address] [facility] Comment on above: Performed By: #### L [id number] #### [facility] ([facility]) [address] [place] [address] GLOMERULAR FILTRATION RATE ML/MIN/1.73 SQ M.PREDICTED 81.2 mL/min/1.73m*2 Normal >60.0 [facility] Comment on above: Result Comment: The [facility]???s estimated glomerular filtration rate (eGFR) will no [...] individuals. Performed By: #### L [id number] #### [facility] ([facility]) [address] [place] [address] Glucose [Mass/Vol] 91 mg/dL Normal 70-100 [facility] Comment on above: Performed By: #### L [id number] #### [facility] ([facility]) [address] [place] [address] Potassium [Moles/Vol] 3.9 mmol/L Normal 3.5-5.[address] [facility] Comment on above: Performed By: #### L [id number] #### [facility] ([facility]) [address] [place] [address] Sodium [Moles/Vol] 135 mmol/L Low 136-145 [facility] Comment on above: Performed By: #### L [id number] #### [facility] ([facility]) [address] [place] [address] Urea nitrogen [Mass/Vol] 8 mg/dL Normal 7-[address] [facility] Comment on above: Performed By: #### L [id number] #### [facility] ([facility]) [address] [place] [address] UREA NITROGEN/CREATININE (MASS RATIO) IN SER/PLAS 10.[address] [facility] Comment on above: Performed By: #### L [id number] #### [facility] ([facility]) [address] [place] [address] CBCon 11-22-2023 Erythrocyte distribution width (RBC) [Ratio] 15.9 % High 11.5-15.[address] [facility] Comment on above: Performed By: #### L [id number] ####[facility] ([facility])[address] [place] [address] ERYTHROCYTE MEAN CORPUSCULAR HEMOGLOBIN CONCENTRATION (G/DL) BY AUTOMATED 31.3 g/dL Low 32.0-35.0 [facility] Comment on above: Performed By: #### L [id number] ####[facility] ([facility])[address] [place] [address] Hematocrit (Bld) [Volume fraction] 35.2 % Low 36.0-48.[address] [facility] Comment on above: Performed By: #### L [id number] ####[facility] ([facility])[address] [place] [address] Hemoglobin (Bld) [Mass/Vol] 11.0 g/dL Low 12.0-15.[address] [facility] Comment on above: Performed By: #### L [id number] ####[facility] ([facility])[address] [place] [address] MCH (RBC) [Entitic mass] 27.5 pg Normal 27.0-33.[address] [facility] Comment on above: Performed By: #### L [id number] ####[facility] ([facility] [place] [address] MCV (RBC) [Entitic vol] 88.0 fL Normal 82.0-98.[address] [facility] Comment on above: Performed By: #### L [id number] ####[facility] ([facility] [place] [address] PLATELETS (10*3/UL) IN BLOOD AUTOMATED COUNT 341 10*3/uL Normal 150-[address] [facility] Comment on above: Performed By: #### L [id number] ####[facility] ([facility])[address] [place] [address] RBC (Bld) [#/Vol] 4.00 10*6/uL Normal 3.80-5.00 [facility] Comment on above: Performed By: #### L [id number] ####[facility] ([facility])[address] [place] [address] WBC (Bld) [#/Vol] 7.75 10*3/uL Normal 4.00-10.60 [facility] Comment on above: Performed By: #### L [id number] ####[facility] ([facility])[address] [facility] [place] [address] DSon 11-22-2023 DS Admission Admitted 11/20/2023 for [...] Medications These medications were sent to [facility] - [place], [place] - [address] [place] [address] [address] [facility] [place] [address], [facility] [address] acetaminophen 500 mg tablet Activity Normal activity [...] history of a cholecystectomy who presents to [facility] as a direct transfer from [facility] with diverticulitis. Pt had been having [...] hgb 11.5, otherwise wnl. Upon arrival to [facility], pt was started on a CLD, IV [...] future appointments. Test Results Pending At Discharge [facility] 30on 11-21-2023 30 Daily Case Managemen [...] 11/20/23 1632 Dietary nutrition supplements Lunch; Liquacel; [place]; 2 packets; Oral Until discontinued Question Answer Comment Deliver with Lunch Select supplement: Liquacel flavor [place] Strength: 2 packets Route Oral 11/20/23 1631 11/20/23 1631 Dietary nutrition supplements TID; Resource Breeze; 8 oz; Oral Until discontinued Question Answer Comment Deliver with TID Select supplement: Resource Breeze Strength: 8 oz Route Oral 11/20/23 1631 Physician Expected Discharge Date: 11/23/2023 Discharge Delays: PT Six Click Score: 17 OT Six Click Score: PT Recommendations: OT Recommendations: New Consults: [facility] BASIC METABOLIC PANELon 06-0 6-2024 Anion gap [Moles/Vol] 11 mmol/L Normal 7-[address] [facility] Comment on above: Performed By: #### L [id number] #### [facility] ([facility]) [address] [place] [address] Calcium [Mass/Vol] 8.6 mg/dL Normal 8.6-10.3 [facility] Comment on above: Performed By: #### L [id number] #### [facility] ([facility]) [address] [place] [address] Chloride [Moles/Vol] 102 mmol/L Normal 98-[address] [facility] Comment on above: Performed By: #### L [id number] #### [facility] ([facility]) [address] [place] [address] CO2 [Moles/Vol] 26 mmol/L Normal 21-31 [facility] Comment on above: Performed By: #### L [id number] #### [facility] ([facility]) [address] [place] [address] Creatinine [Mass/Vol] 0.75 mg/dL Normal 0.60-1.[address] [facility] Comment on above: Performed By: #### L [id number] #### [facility] ([facility]) [address] [place] [address] GLOMERULAR FILTRATION RATE ML/MIN/1.73 SQ M.PREDICTED 85.1 mL/min/1.73m*2 Normal >60.0 [facility] Comment on above: Result Comment: The [facility]???s estimated glomerular filtration rate (eGFR) will no [...] individuals. Performed By: #### L [id number] #### [facility] [address] [place] [address] Glucose [Mass/Vol] 93 mg/dL Normal 70-100 [facility] Comment on above: Performed By: #### L [id number] #### [facility] ([facility]) [address] [place] [address] Potassium [Moles/Vol] 3.9 mmol/L Normal 3.5-5.[address] [facility] Comment on above: Performed By: #### L [id number] #### [facility] ([facility]) [address] [place] [address] Sodium [Moles/Vol] 135 mmol/L Low 136-145 [facility] Comment on above: Performed By: #### L [id number] #### [facility] ([facility]) [address] [place] [address] Urea nitrogen [Mass/Vol] 8 mg/dL Normal 7-[address] [facility] Comment on above: Performed By: #### L [id number] #### [facility] ([facility]) [address] [place] [address] UREA NITROGEN/CREATININE (MASS RATIO) IN SER/PLAS 10.[address] [facility] Comment on above: Performed By: #### L [id number] #### [facility] ([facility]) [address] [place] [address] CBCon 11-21-2023 Erythrocyte distribution width (RBC) [Ratio] 15.6 % High 11.5-15.[address] [facility] Comment on above: Performed By: #### L [id number] #### [facility] ([facility]) [address] [place] [address] ERYTHROCYTE MEAN CORPUSCULAR HEMOGLOBIN CONCENTRATION (G/DL) BY AUTOMATED 31.7 g/dL Low 32.0-35.0 [facility] Comment on above: Performed By: #### L [id number] #### [facility] ([facility] [address] [place] [address] Hematocrit (Bld) [Volume fraction] 34.7 % Low 36.0-48.[address] [facility] Comment on above: Performed By: #### L [id number] #### [facility] ([facility]) [address] [place] [address] Hemoglobin (Bld) [Mass/Vol] 11.0 g/dL Low 12.0-15.[address] [facility] Comment on above: Performed By: #### L [id number] #### [facility] ([facility]) [address] [place] [address] MCH (RBC) [Entitic mass] 27.4 pg Normal 27.0-33.[address] [facility] Comment on above: Performed By: #### L [id number] #### [facility] ([facility]) [address] [place] [address] MCV (RBC) [Entitic vol] 86.5 fL Normal 82.0-98.[address] [facility] Comment on above: Performed By: #### L [id number] #### [facility] ([facility]) [address] [place] [address] PLATELETS (10*3/UL) IN BLOOD AUTOMATED COUNT 349 10*3/uL Normal 150-[address] [facility] Comment on above: Performed By: #### L [id number] #### [facility] ([facility]) [address] [place] [address] RBC (Bld) [#/Vol] 4.01 10*6/uL Normal 3.80-5.00 [facility] Comment on above: Performed By: #### L [id number] #### [facility] ([facility]) [address] [place] [address] WBC (Bld) [#/Vol] 7.22 10*3/uL Normal 4.00-10.60 [facility] Comment on above: Performed By: #### L [id number] #### [facility] [address] [place] [address] 30on 11-20-2023 30 Problem: Pain Goal: LTG-Verbalize [...] to address these barriers include . Normal [facility] 30 The patient is Moderately Stable - [...] fall risk status, and pain status Normal [facility] CBCon 11-20-2023 Erythrocyte distribution width (RBC) [Ratio] 15.8 % High 11.5-15.[address] [facility] Comment on above: Performed By: #### L [id number] #### [facility] (BEAKER) [address] [place] [address] ERYTHROCYTE MEAN CORPUSCULAR HEMOGLOBIN CONCENTRATION (G/DL) BY AUTOMATED 31.9 g/dL Low 32.0-35.0 [facility] Comment on above: Performed By: #### L [id number] #### [facility] ([facility]) [address] [place] [address] Hematocrit (Bld) [Volume fraction] 36.1 % Normal 36.0-48.[address] [facility] Comment on above: Performed By: #### L [id number] #### [facility] ([facility]) [address] [place] [address] Hemoglobin (Bld) [Mass/Vol] 11.5 g/dL Low 12.0-15.[address] [facility] Comment on above: Performed By: #### L [id number] #### [facility] ([facility]) [address] [place] [address] MCH (RBC) [Entitic mass] 27.4 pg Normal 27.0-33.[address] [facility] Comment on above: Performed By: #### L [id number] #### [facility] ([facility]) [address] [place] [address] MCV (RBC) [Entitic vol] 86.2 fL Normal 82.0-98.[address] [facility] Comment on above: Performed By: #### L [id number] #### [facility] ([facility]) [address] [place] [address] PLATELETS (10*3/UL) IN BLOOD AUTOMATED COUNT 388 10*3/uL Normal 150-[address] [facility] Comment on above: Performed By: #### L [id number] #### [facility] ([facility]) [address] [place] [address] RBC (Bld) [#/Vol] 4.19 10*6/uL Normal 3.80-5.00 [facility] Comment on above: Performed By: #### L [id number] #### [facility] ([facility]) [address] [place] [address] WBC (Bld) [#/Vol] 9.02 10*3/uL Normal 4.00-10.60 [facility] Comment on above: Performed By: #### L [id number] #### [facility] ([facility]ER) [address] [place] [address] COMPREHENSIVE METABOLIC PANE Nacho 11-20-2023 Albumin [Mass/Vol] 3.8 g/dL Normal 3.5-5.7 [facility] Comment on above: Performed By: #### L [id number] ####[facility] [place] [address] ALP [Catalytic activity/Vol] 118 U/L High 34-[address] [facility] Comment on above: Performed By: #### L [id number] ####[facility] ([facility])[address] [place] [place] [address] ALT [Catalytic activity/Vol] 19 U/L Normal 7-[address] [facility] Comment on above: Performed By: #### L [id number] ####[facility] ([facility])[address] [place] [address] Anion gap [Moles/Vol] 9 mmol/L Normal 7-[address] [facility] Comment on above: Performed By: #### L [id number] ####[facility] ([facility])[address] [place] [address] AST [Catalytic activity/Vol] 28 U/L Normal 13-[address] [facility] Comment on above: Performed By: #### L [id number] ####[facility] ([facility])[address] [place] [address] Bilirubin [Mass/Vol] 0.6 mg/dL Normal 0.3-1.[address] [facility] Comment on above: Performed By: #### L [id number] ####[facility] ([facility] [place] [address] Calcium [Mass/Vol] 8.9 mg/dL Normal 8.6-10.3 [facility] Comment on above: Performed By: #### L [id number] ####[facility] ([facility] [place] [address] Chloride [Moles/Vol] 101 mmol/L Normal 98-[address] [facility] Comment on above: Performed By: #### L [id number] ####[facility] [place] [place] [address] CO2 [Moles/Vol] 29 mmol/L Normal 21-31 [facility] Comment on above: Performed By: #### L [id number] ####[facility] [place] [place] [address] Creatinine [Mass/Vol] 0.75 mg/dL Normal 0.60-1.[address] [facility] Comment on above: Performed By: #### L [id number] ####[facility] ([facility])[address] [place] [address] GLOMERULAR FILTRATION RATE ML/MIN/1.73 SQ M.PREDICTED 85.1 mL/min/1.73m*2 Normal >60.0 [facility] Comment on above: Result Comment: The [facility]???s estimated glomerular filtration rate (eGFR) will no [...] of individuals. Performed By: #### L [id number] ####[facility] [place] [address] Glucose [Mass/Vol] 116 mg/dL High 70-100 [facility] Comment on above: Performed By: #### L [id number] ####[facility] [place] [place] [address] Potassium [Moles/Vol] 4.2 mmol/L Normal 3.5-5.[address] [facility] Comment on above: Performed By: #### L [id number] ####[facility] [place] [place] [address] Protein [Mass/Vol] 7.0 g/dL Normal 6.0-8.3 [facility] Comment on above: Performed By: #### L [id number] ####[facility] ([facility]AKER)[address] [place] [address] Sodium [Moles/Vol] 135 mmol/L Low 136-145 [facility] Comment on above: Performed By: #### L [id number] ####[facility] ([facility]ER)[address] [place] [address] Urea nitrogen [Mass/Vol] 12 mg/dL Normal 7-[address] [facility] Comment on above: Performed By: #### L [id number] ####[facility] ([facility]AKER)[address] [place] [address] UREA NITROGEN/CREATININE (MASS RATIO) IN SER/PLAS 16.[address] 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 [...] (11/20/2023). 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 For weekends & holidays, the dietitian can be reached via pager [phone] from 9A-3P. Unable to respond to [employer] chat messages on Saturday & . [facility] --- Attestation signed by Saida Lai MD at 11/21/2023 8:37 AM Attending Physician Statement I have discussed the case, including pertinent history and exam findings with Dr. Tanner, surgical supply assistant and have personally seen the patient. I agree with the assessment, plan and orders as documented. [phone] pager [phone] phone [facility] General Surgery HISTORY & PHYSICAL Reason for Admission: diverticulitis History of Present Illness: Jenny Watt is a 73 y.o. female with PMH of atrial fibrillation s/p ablation on amiodarone and eliquis, HTN, hypothyroidism, and sleep apnea and past surgical history of a cholecystectomy who presents to [facility] as a direct transfer from [facility] with diverticulitis. Pt had been having [...] Atrial fib (more content not included)... Normal [facility] LACTIC ACID, PLASMAon 2023 LACTATE (MMOL/L) IN SER/PLAS 1.2 mmol/L Normal 0.5-2.[address] [facility] Comment on above: Performed By: #### L [id number] ####[facility] ([facility]AKER)[address] [place] [address] NURSNOTEon 11-20-2023 NURSNOTE Bedside reporting do ne, rosenda Atkinson RN and Maia RN No complaints at this time Normal [facility] NURSNOTE Pt sits up at side o f bed, no c/o of pain, or SOB at this time Telemetry cont. On pt IV intact, no redness noted Pulse ox--98% on room air Pt. Up walking around in room for 10 min at 1830 pm [facility] NURSNOTE Pt up walking around in room, tolerates well , with walker. [facility] RIYA Lai notified th at we need admission orders. Notified via secure [employer] chat. Normal [facility] ULISESNOTE Pt arrived as a dire ct admission from [facility], no c/o of pain or SOB at this time Assessment completed Telemetry started on pt. Bed alarm on [facility] PHOSPHORUSon 11-20-2023 Magnesium [Mass/Vol] 2.5 mg/dL Normal 1.9-2.[address] [facility] Comment on above: Performed By: #### L [id number] #### [facility] ([facility]AKER) [address] [place] [address] Performed By: #### L [id number] #### [facility] ([facility]) [address] [place] [address] PROTIME-INRon 11-20-2023 INR IN PPP BY COAGULATION ASSAY 1.27 High 0.90-1.[address] [facility] Comment on above: Result Comment: ACCC [...] 1995;[id number]. Performed By: #### L [id number] #### [facility] (ALL) [address] [place] [address] PROTHROMBIN TIME (PT) IN PPP BY COAGULATION ASSAY 15.8 Seconds High 12.3-14.[address] [facility] Comment on above: Performed By: #### L [id number] #### [facility] (ALL) [address] [place] [address] 36on 08-01-2023 36 Regarding echo performed on 06/27/2023: Echo is stable per Lissa Spencer CNP. I called patient and made her aware. She asked about her lab work. I told her we didn't have a copy of it in her chart. Labs were then obtained from [facility] portal and uploaded into her associate professor of library media for Lissa's review. I told her I'd call her back if he didn't like the results. She thanked me and verbalized understanding. [facility] Orders Onlyon 06-25-2023 Orders Only [id number] JustaGavi daojosie Magaña 1950 F Date Provider Department Center 06/25/2023 CRISTIANE MORALES Family History Problem Relation Age of Onset Heart attack Father Atrial fibrillation Father Atrial fibrillation Sister Family Status - Relation Status Age at Father Sister [facility] Office Visiton 06-18-2023 Follow-up visit [id number] Jenny Watt 1950 F Date Provider Department Center 06/18/2023 LISSA CASTRO Family History Problem Relation Age of Onset Heart attack Father Atrial fibrillation Father Atrial fibrillation Sister Family Status - Relation Status Age at Father Sister Level of Service:[address] [place] OFFICE/OUTPATIENT ESTABLISHED MOD MDM 30 MIN [facility] Orders Onlyon 02-20-2023 Orders Only [id number] JustaGavi daojosie Magaña 1950 F Date Provider Department Center 02/20/2023 VALENTE LYNN Family History Problem Relation Age of Onset Heart attack Father Atrial fibrillation Father Atrial fibrillation Sister Family Status - Relation Status Age at Father Sister [facility] 36on 12-11-2022 36 Patient called back and I made her aware. Lab results faxed to PCP. [facility] 36on 12-10-2022 36 Please let her know her CXR was normal. Her labs showed her kidney function, liver function and blood counts were all normal. Her bad cholesterol levels were above goal. She is at 119, would like for her to be less than 100 for stroke and CA prevention. Recommend heart healthy diet such as the mediterranean diet and trying to implement some form of exercising. Her thyroid function is a little elevated but better since her last labs we have on file from 2019. Please make sure she follows up with her PCP for her thyroid management. Continue with follow-up amio testing q6 months. Thank you! [facility] Telephoneon 12-10-2022 Telephone [id number] Jenny Watt 1950 F Date Provider Department Center 12/10/2022 YUAN [facility] Family History Problem Relation Age of Onset Heart attack Father Atrial fibrillation Father Atrial fibrillation Sister Family Status - Relation Status Age at Father Sister [facility] Covid-19 PCR (CVDTB)on 02-16 SARS-CoV-2 (COVID-19) RNA SP+probe Ql (Unsp spec) Not detected Normal NOT DETECTED [facility] Comment on above: Result Comment: When [...] for this test is supported by the Certified Prosthetist of Health and Human Service's declaration that [...] used). Performed By: #### C VDTB #### [facility] [address] [place] [address] Dr. Maik Singleton BASIC METABOLIC PANELon - Calcium [Mass/Vol] 8.1 mg/dL Low 8.6-10.3 [facility] Comment on above: Order Comment: No: D o not add to previous draw Performed By: #### 1 69, 76920 #### [facility] [address] [place] [address], [place] Chloride [Moles/Vol] 99 mmol/L Normal 98-[address] [facility] Comment on above: Order Comment: No: D o not add to previous draw Performed By: #### 1 69, 49352 #### [facility] [address] [place] [address], [place] CO2 [Moles/Vol] 27 mmol/L Normal 21-31 [facility] Comment on above: Order Comment: No: D o not add to previous draw Performed By: #### 1 69, 91543 #### [facility] [address] [place] [address], [place] Creatinine [Mass/Vol] 0.82 mg/dL Normal 0.60-1.[address] [facility] Comment on above: Order Comment: No: D o not add to previous draw Performed By: #### 1 69, 07383 #### [facility] [address] [place] [address], [place] GFR/1.73 sq M.predicted among blacks MDRD (S/P/Bld) [Vol rate/Area] mL/min/{1.73_m2} Normal >[address] [facility] Comment on above: Order Comment: No: D o not add to previous draw Performed By: #### 1 69, 74120 #### [facility] [address] [place] [address], [facility] GFR/1.73 sq M.predicted among non-blacks MDRD (S/P/Bld) [Vol rate/Area] mL/min/{1.73_m2} Normal >[address] [facility] Comment on above: Order Comment: No: D o not add to previous draw Performed By: #### 1 69, 33835 #### [facility] [address] [place] [address], [facility] Glucose [Mass/Vol] 109 mg/dL High 70-100 [facility] Comment on above: Order Comment: No: D o not add to previous draw Performed By: #### 1 69, 59002 #### [facility] [address] [place] [id number], [facility] Potassium [Moles/Vol] 4.0 mmol/L Normal 3.5-5.[address] [facility] Comment on above: Order Comment: No: D o not add to previous draw Performed By: #### 1 69, 63991 #### [facility] [address] [place] [address], [facility] Sodium [Moles/Vol] 134 mmol/L Low 136-145 [facility] Comment on above: Order Comment: No: D o not add to previous draw Performed By: #### 1 69, 54373 #### [facility] [address] [place] [address], [facility] Urea nitrogen [Mass/Vol] 12 mg/dL Normal 7-[address] [facility] Comment on above: Order Comment: No: D o not add to previous draw Performed By: #### 1 69, 76725 #### [facility] [address] [place] [id number], [facility] CBC COMPLETE BLOOD COUNTon 0 2- Erythrocyte distribution width (RBC) [Ratio] 15.5 % High 11.5-15.[address] [facility] Comment on above: Order Comment: No: D o not add to previous draw Performed By: #### 5 0608 #### [facility] [address] [place] [id number], [facility] Hematocrit (Bld) [Volume fraction] 36.9 % Normal 36.0-45.[address] [facility] Comment on above: Order Comment: No: D o not add to previous draw Performed By: #### 5 0608 #### [facility] [address] [place] [address], [facility] Hemoglobin (Bld) [Mass/Vol] 11.5 g/dL Low 12.0-15.[address] [facility] Comment on above: Order Comment: No: D o not add to previous draw Performed By: #### 5 0608 #### [facility] [address] [place] [address], [facility] MCH (RBC) [Entitic mass] 27.1 pg Normal 27.0-33.[address] [facility] Comment on above: Order Comment: No: D o not add to previous draw Performed By: #### 5 0608 #### [facility] [address] [place] [address], [facility] MCHC (RBC) [Mass/Vol] 31.2 g/dL Low 32.0-35.[address] [facility] Comment on above: Order Comment: No: D o not add to previous draw Performed By: #### 5 0608 #### [facility] [address] [place] [address], [facility] MCV (RBC) [Entitic vol] 87.0 fL Normal 82.0-98.[address] [facility] Comment on above: Order Comment: No: D o not add to previous draw Performed By: #### 5 0608 #### [facility] [address] [place] [id number], [facility] Nucleated RBC/100 WBC (Bld) [Ratio] 0 % Normal 0-[address] [facility] Comment on above: Order Comment: No: D o not add to previous draw Performed By: #### 5 0608 #### [facility] [address] [place] [address], [facility] PLAT CNT 258 10*3/uL Normal 150-400 The [facility] Comment on above: Order Comment: No: D o not add to previous draw Performed By: #### 5 0608 #### [facility] [address] [place] [address], [facility] RBC (Bld) [#/Vol] 4.24 10*6/uL Normal 3.80-5.00 [facility] Comment on above: Order Comment: No: D o not add to previous draw Performed By: #### 5 0608 #### [facility] [address] [place] [address], [facility] WBC (Bld) [#/Vol] 10.20 10*3/uL Normal 4.00-10.[address] [facility] Comment on above: Order Comment: No: D o not add to previous draw Performed By: #### 5 0608 #### [facility] [address] [facility] MAGNESIUM BLOODon 08-10-2021 Magnesium [Mass/Vol] 2.2 mg/dL Normal 1.9-2.[address] [facility] Comment on above: Order Comment: No: D o not add to previous draw Performed By: #### 1 0070, 81812 #### [facility] [address] [facility]. [address] APTTon 08-09-2021 aPTT Coag (Bld) [Time] 26.9 s Normal 25.0-35.[address] [facility] Comment on above: Result Comment: ALL [...] THIS PURPOSE. Performed By: #### 5 6101, 08674 #### [facility] [address] [place] [address], [facility] CBC W/DIFFon 08-09-2021 ABS IMM GRANS 0.0 10*3/uL Normal 0.0-0.[address] [facility] Comment on above: Performed By: #### 5 0103 #### [facility] [address] [place] [address], [facility] ABS NEUTROPHILS 5.1 10*3/uL Normal 1.6-7.6 [facility] Comment on above: Performed By: #### 5 0103 #### [facility] [address] [place] [address], [facility] Basophils (Bld) [#/Vol] 0.0 10*3/uL Normal 0.0-0.[address] [facility] Comment on above: Performed By: #### 5 0103 #### [facility] [address] [place] [address], [facility] Basophils/100 WBC (Bld) 0.4 % Normal 0.0-1.[address] [facility] Comment on above: Performed By: #### 5 0103 #### [facility] [address] [place] [address], [facility] Eosinophils (Bld) [#/Vol] 0.2 10*3/uL Normal 0.0-0.[address] [facility] Comment on above: Performed By: #### 5 0103 #### [facility] [address] [place] [address], [facility] Eosinophils/100 WBC (Bld) 2.3 % Normal 0.0-6.[address] [facility] Comment on above: Performed By: #### 5 3 #### [facility] [address] [place] [id number], [facility] Erythrocyte distribution width (RBC) [Ratio] 15.3 % High 11.5-15.[address] [facility] Comment on above: Performed By: #### 5 0103 #### [facility] [address] [place] [address], [facility] Hematocrit (Bld) [Volume fraction] 37.4 % Normal 36.0-45.[address] [facility] Comment on above: Performed By: #### 5 0103 #### [facility] [address] [place] [address], [facility] Hemoglobin (Bld) [Mass/Vol] 11.5 g/dL Low 12.0-15.[address] [facility] Comment on above: Performed By: #### 5 0103 #### [facility] [address] IMMATURE GRANS 0.3 % Normal 0.0-1.[address] [facility] Comment on above: Performed By: #### 5 0103 #### [facility] [address] Lymphocytes (Bld) [#/Vol] 1.1 10*3/uL Low 1.2-4.[address] [facility] Comment on above: Performed By: #### 5 0103 #### [facility] [address] [place] [address], [facility] Lymphocytes/100 WBC (Bld) 16.1 % Low 20.0-45.[address] [facility] Comment on above: Performed By: #### 5 0103 #### [facility] [address] [place] [address], [facility] MCH (RBC) [Entitic mass] 26.9 pg Low 27.0-33.[address] [facility] Comment on above: Performed By: #### 5 3 #### [facility] [address] [place] [address], [facility] MCHC (RBC) [Mass/Vol] 30.7 g/dL Low 32.0-35.[address] [facility] Comment on above: Performed By: #### 102 #### [facility] [address] MCV (RBC) [Entitic vol] 87.4 fL Normal 82.0-98.[address] [facility] Comment on above: Performed By: #### 102 #### [facility] [address] [place] [address], [facility] Monocytes (Bld) [#/Vol] 0.6 10*3/uL Normal 0.1-1.[address] [facility] Comment on above: Performed By: #### 5 102 #### [facility] [address] MONOS 8.8 % Normal 5.0-12.[address] [facility] Comment on above: Performed By: #### 5 102 #### [facility] [address] Neutrophils/100 WBC (Bld) 72.1 % High 40.0-72.[address] [facility] Comment on above: Performed By: #### 102 #### [facility] [address] Nucleated RBC/100 WBC (Bld) [Ratio] 0 % Normal 0-[address] [facility] Comment on above: Performed By: #### 5 102 #### [facility] [address] [place] [address], [facility] PLAT CNT 271 10*3/uL Normal 150-400 [facility] Comment on above: Performed By: #### 102 #### [facility] [address] [place] [address], [facility] RBC (Bld) [#/Vol] 4.28 10*6/uL Normal 3.80-5.00 [facility] Comment on above: Performed By: #### 102 #### [facility] [address] [facility]. [address] WBC (Bld) [#/Vol] 7.02 10*3/uL Normal 4.00-10.60 [facility] Comment on above: Performed By: #### 5 0103 #### [facility] [address] [facility]. [address] COMP METABOLIC PANELon 08-09 Albumin [Mass/Vol] 3.8 g/dL Normal 3.5-5.7 [facility] Comment on above: Performed By: #### 0 0121 #### [facility] [address] ALKALINE PHOSPH 140 IU/L High 34-104 [facility] Comment on above: Performed By: #### 0 0121 #### [facility] [address] ALT [Catalytic activity/Vol] 13 U/L Normal 7-[address] [facility] Comment on above: Performed By: #### 0 0121 #### [facility] [address] AST [Catalytic activity/Vol] 17 U/L Normal 13-[address] [facility] Comment on above: Performed By: #### 0 0121 #### [facility] [address] [facility]. [address] Bilirubin [Mass/Vol] 0.5 mg/dL Normal 0.3-1.[address] [facility] Comment on above: Performed By: #### 0 0121 #### [facility] [address] [facility]. [address] Calcium [Mass/Vol] 8.7 mg/dL Normal 8.6-10.3 [facility] Comment on above: Performed By: #### 0 0121 #### [facility] [address] [place] [address], [place] Chloride [Moles/Vol] 104 mmol/L Normal 98-[address] [facility] Comment on above: Performed By: #### 0 0121 #### [facility] [address] [place] [address], [place] CO2 [Moles/Vol] 28 mmol/L Normal 21-31 [facility] Comment on above: Performed By: #### 0 0121 #### [facility] [address] [place] [address], [place] Creatinine [Mass/Vol] 0.74 mg/dL Normal 0.60-1.[address] [facility] Comment on above: Performed By: #### 0 0121 #### [facility] [address] [place] [address], [place] GFR/1.73 sq M.predicted among blacks MDRD (S/P/Bld) [Vol rate/Area] mL/min/{1.73_m2} Normal >[address] [facility] Comment on above: Performed By: #### 0 0121 #### [facility] [address] [place] [address], [place] GFR/1.73 sq M.predicted among non-blacks MDRD (S/P/Bld) [Vol rate/Area] mL/min/{1.73_m2} Normal >[address] [facility] Comment on above: Performed By: #### 0 0121 #### [facility] [address] [place] [address], [place] Glucose [Mass/Vol] 116 mg/dL High 70-100 [facility] Comment on above: Performed By: #### 0 0121 #### [facility] [address] [place] [address], [place] Potassium [Moles/Vol] 3.9 mmol/L Normal 3.5-5.[address] [facility] Comment on above: Performed By: #### 0 0121 #### [facility] [address] [place] [address], [facility] Protein [Mass/Vol] 6.4 g/dL Normal 6.0-8.3 [facility] Comment on above: Performed By: #### 0 0121 #### [facility] [address] [place] [address], [facility] Sodium [Moles/Vol] 138 mmol/L Normal 136-145 [facility] Comment on above: Performed By: #### 0 0121 #### [facility] [address] [place] [address], [facility] Urea nitrogen [Mass/Vol] 10 mg/dL Normal 7-[address] [facility] Comment on above: Performed By: #### 0 0121 #### [facility] [address] Cardiovascular Lab Reporton 08-09-2021 Cardiovascular Lab Report [facility] Patient Name: Jenny Watt [facility] MR #: [id number] Physician: Charli Pulido MD Department of Service Date: 08/09/2021 Medicine Birthdate: 1950 Division of Room #: 3CD [id number] Cardiology Adult Cardiovascular Services [place] [address] Cardiovascular Laboratory Report ATRIAL FIBRILLATION ABLATION PROCEDURE [...] in Afib. Esophagus was mapped using the [employer] 3D mapping software with quadripolar catheter and [...] perform (more content not included)... Normal [facility] POC GLUCOSE LABon 08-09-2021 Glucose [Mass/Vol] 107 mg/dL High 70-100 [facility] Comment on above: Performed By: #### 8 5499 #### [facility] [address] [facility]. [address] PROTHROMBIN TIMEon 2 INR Coag (PPP) [Relative time] 1.01 {INR} Normal 0.91-1.[address] [facility] Comment on above: Result Comment: ACCC [...] CHEST 1995;108:[id number]. Performed By: #### 5 6101, 14682 #### [address] PT Coag (PPP) [Time] 13.3 s Normal 12.3-14.[address] [facility] Comment on above: Result Comment: ALL RESULTS MUST BE INTERPRETED WITH RESPECT TO BLOOD DRAWING ARTIFACT OR DILUTION ERROR OF ANTICOAGULANT AT THE TIME OF SAMPLING. Performed By: #### 5 6101, 28074 #### [facility] [address] CTA CHESTon 08-08-2021 CTA [address] [facility] Department of Radiology [address] [place] [id number] ===== Patient Name: JENNY WATT : [...] examination. Electronically signed: Audrey Umana. Transcribed by: [email or web address], User Resident: Electronically Signed by: AUDREY UMANA @ 08/08/2021 03:05 PM Normal [facility] Comment on above: Order Comment: , Gavin b Ablation 08/09/21 Covid-19 PCR (CVDTB)on 05-18 SARS-CoV-2 (COVID-19) RNA SP+probe Ql (Unsp spec) Not detected Normal NOT DETECTED [facility] Comment on above: Result Comment: This test is not yet approved or cleared by the [place] FDA. When there are no FDA-approved or cleared tests available, and other criteria are met, FDA can make tests available under an emergency access mechanism called an Emergency Use Authorization (EUA). The EUA for this test is supported by the Certified Prosthetist of Health and Human Service's (HHS's) declaration [...] SARS-CoV-2. Performed By: #### C TB #### [facility] [address] [place] [address] [address] Maik Singleton Encounters Encounter Date Encounter Type Care Provider Facility Start: 01-21-2024 ambulatory Pasha BACH Facility :[facility] Start: 11-26-2023 ambulatory Pasha BACH Facility:[facility] [place] Start: 11-21-2023 Evaluation and manag ement of inpatient [facility] Start: 11-20-2023 Evaluation and manag ement of inpatient ROHIT DELCID [facility] Start: 11-20-2023 End: 11-22-2023 Evaluation and management of inpatient EDUARDO WALKER [facility] Start: 06-18-2023 End: 06-18-2023 ambulatory [facility] Start: 03-07-2022 End: 03-07-[address] KERRI SMITH Facility: Start: 08-09-2021 End: 08-10-2021 ambulatory KERRI SMITH Facility:[facility] Start: 06-18-2021 Encounter for prepro cedural laboratory examination CHARLI PULIDO [facility] Start: 06-14-2021 End: 06-14-[address] DOCTOR DIXON Facility:[facility] Start: 06-12-2021 End: 06-12-2021 ambulatory CHARLI PULIDO Facility:[facility] Start: 06-12-2021 End: 06-12-2021 Encounter for preprocedural laboratory examination CHARLI PULIDO Facility:[facility] Payers Date Payer Category Payer Medicare [id number] 1959 Private Health Insurance [id number] 1950 Unknown [id number] [id number] [id number] 1950 Unknown [id number] 2.16.84 [id number] 1950 Unknown [id number] 2.16.84 [id number] 1950 Unknown [id number] 2.16.84 [id number] 1950 Unknown [id number] 2.16.8 [id number] Progress note 11-22-2023 Note Date & Type Note Facility 11-22-2023 Note [facility] General Surgery DAILY PROGRESS NOTE Subjective Observed [...] Casey Tanner MD PGY-1 General Surgery Resident [facility] Clinical Note 11-22-2023 Note Date & Type [...] and behaviors that affect risk of falls [place] fall precautions as indicated by assessment Educate [...] exacerbated and prevent overall improvement and discharge [facility] Progress note 11-21-2023 Note Date & Type Note Facility 11-21-2023 Note Attestation signed by Saida Lai MD at 11/23/2023 2:06 PM Attending Physician Statement I have discussed the case, including pertinent history and exam findings with Dr. Tanner, surgical supply assistant and have personally seen the patient. I agree with the assessment, plan and orders as documented. [phone] pager [phone] phone [facility] General Surgery DAILY PROGRESS NOTE Subjective NAEO. [...] 11/21 Casey Tanner MD General Surgery Resident, PGY-6 I can be reached via [employer] [id number] [facility] Clinical Note 11-20-2023 Note Date & Type Note Facility 11-20-2023 Note Problem: Pain Goal: LTG-Verbalize decrease in pain Outcome: Progressing Goal: LTG-Demostrate that the pain does not impair ADLs Outcome: Progressing Goal: STG-Pt will verbalize decreased discomfort Outcome: Progressing 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 [facility] Progress note 11-20-2023 Note Date & Type [...] Discharge? Yes Does the patient have a family caseworker assigned to them through their insurance? No [...] to send link and activate MyChart? No [facility] Progress note 06-18-2023 Note Date & [...] PMHx: a.fib; HTN, anxiety FMHx: father - [place]; sister - a.fib; father - a.fib Echocardiogram [...] No current facilit (more content not included)... [facility] Progress note 06-18-2023 Note Date & [...] All other systems reviewed and are negative. [facility] Clinical Note 06-14-2021 Note Date & Type Note Facility 06-14-2021 Note [facility] [place], [place] NAME: JENNY WATT DATE OF : MEDICAL REC#: [id number] SOLUTION COORDINATOR: CASSIE DOMINGUEZ ADMIT DATE: 06/14/2021 08:37:00 DISC RECORDIST DATE: 06/20/2021 08:00 DICTATING PHYSICIAN: CHARLI PULIDO DICTATION DATE: 06/14/2021 18:00 duplicate entry Electronically Authenticated and Edited by: Charli Pulido MD on 12/05/2021 07:50 PM EDT [facility] [place], [place] NAME: JENNY WATT DATE OF : MEDICAL REC#: [id number] SOLUTION COORDINATOR: CASSIE DOMINGUEZ ADMIT DATE: 06/14/2021 08:37:00 DISC RECORDIST DATE: 06/20/2021 08:00 DICTATING PHYSICIAN: CHARLI PULIDO [...] in an anterior/posterior direction. 360 joules of [place]'s cardioversion on two occasions did not convert [...] Approved by: CHARLI PULIDO 12/05/2021 19:42:00 [facility] Summary Purpose Family History No Family History Records FoundNo Family History Records FoundNo Family History Records FoundNo Family History Records Found Advance Directives No Advanced Directives Records FoundNo Advanced Directives Records FoundNo Advanced Directives Records FoundNo Advanced Directives Records Found Additional Source Comments INFORMATION SOURCE (unrecogn ized section and content) DATE CREATED AUTHOR 08/17/2021 [facility] DATE CREATED AUTHOR AUTHOR'S ORGANIZ ATION 05/19/2022 [facility] DATE CREATED AUTHOR AUTHOR'S ORGANIZ ATION 12/04/2023 [facility] DATE CREATED AUTHOR AUTHOR'S ORGANIZ ATION 12/19/2023 [facility] FOR RECORDS PERTAINING TO PATIENTS WHO [...] BE BASED ON THE PRIMARY CLINICAL RECORDS. [facility]. provides no warranty or guarantee of the accuracy or completeness of information in this document.
--- OUTSIDE RECORDS SUMMARY | 2024-01-18 10:33 | XMS_ITS | CCD ---
Author Organization [facility]iniSy[facility] Care Team Providers Care Photographic Process Screen Maker Name Role Phone KERRI SMITH Referring Unavailable HOY, KERRI Primary Care Unavailable JOECHARLI Polk Attending Unavailable JOECHARLI Polk Admitting Unavailable MISC, DR FLAHERTY Admitting Unavailable HOY, DR MANNING Primary Care Unavailable MISC, DR FLAEHRTY Attending Unavailable MISC, DR FLAHERTY Consulting Unavailable [...] te Episodic/Chronic Other aftercare (2 sources) Other middle or intermediate school principal (current) drug therapy; Translations: [Other alf (current) drug therapy] Onset: 06-18-2023 Episodic Other lower respiratory disease (1 source) Other forms of dyspnea; Translations: [OTHER FORMS OF DYSPNEA] Onset: 06-27-2021 Episodic Unclassified (1 source) CONTACT W/AND (SUSP) EXPOS COVID-19; Translations: [CONTACT W/AND (SUSP) EXPOS COVID-19] Onset: 03-07-2022 Results Test Name Value Interpretation Reference Range Facility Physician Referralon 024 Physician Referral [id number] [id number] Normal [facility] BASIC METABOLIC PANELon Anion gap [Moles/Vol] 12 mmol/L Normal 7- [facility] Comment on above: Performed By: #### L [id number] #### [facility] ([facility]AK[facility]) [address] [place] [address] Calcium [Mass/Vol] 8.5 mg/dL Low 8.6-10.3 [facility] Comment on above: Performed By: #### L [id number] #### [facility] ([facility]) [address] [place] [address] Chloride [Moles/Vol] 101 mmol/L Normal 98-107 [facility] Comment on above: Performed By: #### L [id number] #### [facility] ([facility]) [address] [place] [address] CO2 [Moles/Vol] 26 mmol/L Normal 21-31 [facility] Comment on above: Performed By: #### L [id number] #### [facility] ([facility]) [address] [place] [address] Creatinine [Mass/Vol] 0.78 mg/dL Normal 0.60-1.20 [facility] Comment on above: Performed By: #### L [id number] #### [facility] ([facility]) [address] [place] [address] GLOMERULAR FILTRATION RATE ML/MIN/1.73 SQ M.PREDICTED 81.2 mL/min/1.73m*2 Normal >60.0 [facility] Comment on above: Result Comment: The [...] [id number] #### [facility] ([facility]) [address] [place] [address] Glucose [Mass/Vol] 91 mg/dL Normal 70-100 [facility] Comment on above: Performed By: #### L [id number] #### [facility] ([facility]) [address] [place] [address] Potassium [Moles/Vol] 3.9 mmol/L Normal 3.5-5.1 [facility] Comment on above: Performed By: #### L [id number] #### [facility] ([facility]) [address] [place] [address] Sodium [Moles/Vol] 135 mmol/L Low 136-145 [facility] Comment on above: Performed By: #### L [id number] #### [facility] ([facility]) [address] [facility] [place] [address] Urea nitrogen [Mass/Vol] 8 mg/dL Normal 7-25 [facility] Comment on above: Performed By: #### L [id number] #### [facility] ([facility]) [address] [place] [address] UREA NITROGEN/CREATININE (MASS RATIO) IN SER/PLAS 10.3 Normal [facility] Comment on above: Performed By: #### L [id number] #### [facility] ([facility]) [address] [place] [address] CBCon 11-22-2023 Erythrocyte distribution width (RBC) [Ratio] 15.9 % High 11.5-15.0 [facility] Comment on above: Performed By: #### L [id number] ####[facility] ([facility])[address] [place] [address] ERYTHROCYTE MEAN CORPUSCULAR HEMOGLOBIN CONCENTRATION (G/DL) BY AUTOMATED 31.3 g/dL Low 32.0-35.0 [facility] Comment on above: Performed By: #### L [id number] ####[facility] ([facility])[address] [place] [address] Hematocrit (Bld) [Volume fraction] 35.2 % Low 36.0-48.0 [facility] Comment on above: Performed By: #### L [id number] ####[facility] ([facility])[address] [place] [address] Hemoglobin (Bld) [Mass/Vol] 11.0 g/dL Low 12.0-15.0 [facility] Comment on above: Performed By: #### L [id number] ####[facility] ([facility])[address] [place] [address] MCH (RBC) [Entitic mass] 27.5 pg Normal 27.0-33.0 [facility] Comment on above: Performed By: #### L [id number] ####[facility] ([facility] [place] [address] MCV (RBC) [Entitic vol] 88.0 fL Normal 82.0-98.0 [facility] Comment on above: Performed By: #### L [id number] ####[facility] ([facility] [place] [address] PLATELETS (10*3/UL) IN BLOOD AUTOMATED COUNT 341 10*3/uL Normal 150-400 [facility] Comment on above: Performed By: #### L [id number] ####[facility] ([facility])[address] [place] [address] RBC (Bld) [#/Vol] 4.00 10*6/uL Normal 3.80-5.00 [facility] Comment on above: Performed By: #### L [id number] ####[facility] ([facility])[address] [place] [address] WBC (Bld) [#/Vol] 7.75 10*3/uL Normal 4.00-10.60 [facility] Comment on above: Performed By: #### L [id number] ####[facility] ([facility])[address] [place] [address] DSon 11-22-2023 DS Admission Admitted 11/20/2023 for [...] Medications These medications were sent to [facility] - [place], [place] - [address] [place] [address] [address] [facility] [place] [address], [facility] [address] acetaminophen 500 mg tablet Activity Normal activity [...] [facility] as a direct transfer from [facility] with diverticulitis. Pt had been having on [...] future appointments. Test Results Pending At Discharge [facility] 30on 11-21-2023 30 Daily Case Managemen [...] 11/20/23 1632 Dietary nutrition supplements Lunch; Liquacel; [place]; 2 packets; Oral Until discontinued Question Answer Comment Deliver with Lunch Select supplement: Liquacel flavor [place] Strength: 2 packets Route Oral 11/20/23 1631 11/20/23 1631 Dietary nutrition supplements TID; Resource Breeze; 8 oz; Oral Until discontinued Question Answer Comment Deliver with TID Select supplement: Resource Breeze Strength: 8 oz Route Oral 11/20/23 1631 Physician Expected Discharge Date: 11/23/2023 Discharge Delays: PT Six Click Score: 17 OT Six Click Score: PT Recommendations: OT Recommendations: New Consults: [facility] BASIC METABOLIC PANELon 06-0 6-2024 Anion gap [Moles/Vol] 11 mmol/L Normal 7-20 [facility] Comment on above: Performed By: #### L [id number] #### [facility] ([facility]) [address] [place] [address] Calcium [Mass/Vol] 8.6 mg/dL Normal 8.6-10.3 [facility] Comment on above: Performed By: #### L [id number] #### [facility] ([facility]) [address] [place] [address] Chloride [Moles/Vol] 102 mmol/L Normal 98-107 [facility] Comment on above: Performed By: #### L [id number] #### [facility] ([facility]) [address] [place] [address] CO2 [Moles/Vol] 26 mmol/L Normal 21-31 [facility] Comment on above: Performed By: #### L [id number] #### [facility] ([facility]) [address] [place] [address] Creatinine [Mass/Vol] 0.75 mg/dL Normal 0.60-1.20 [facility] Comment on above: Performed By: #### L [id number] #### [facility] ([facility]) [address] [place] [address] GLOMERULAR FILTRATION RATE ML/MIN/1.73 SQ M.PREDICTED 85.1 mL/min/1.73m*2 Normal >60.0 [facility] Comment on above: Result Comment: The [...] [id number] #### [facility] ([facility] [address] [place] [address] Glucose [Mass/Vol] 93 mg/dL Normal 70-100 [facility] Comment on above: Performed By: #### L [id number] #### [facility] ([facility]) [address] [place] [address] Potassium [Moles/Vol] 3.9 mmol/L Normal 3.5-5.1 [facility] Comment on above: Performed By: #### L [id number] #### [facility] ([facility]) [address] [place] [address] Sodium [Moles/Vol] 135 mmol/L Low 136-145 [facility] Comment on above: Performed By: #### L [id number] #### [facility] ([facility]) [address] [place] [address] Urea nitrogen [Mass/Vol] 8 mg/dL Normal 7-25 [facility] Comment on above: Performed By: #### L [id number] #### [facility] ([facility]) [address] [place] [address] UREA NITROGEN/CREATININE (MASS RATIO) IN SER/PLAS 10.7 Normal [facility] Comment on above: Performed By: #### L [id number] #### [facility] ([facility]) [address] [place] [address] CBCon 11-21-2023 Erythrocyte distribution width (RBC) [Ratio] 15.6 % High 11.5-15.0 [facility] Comment on above: Performed By: #### L [id number] #### [facility] ([facility]) [address] [place] [address] ERYTHROCYTE MEAN CORPUSCULAR HEMOGLOBIN CONCENTRATION (G/DL) BY AUTOMATED 31.7 g/dL Low 32.0-35.0 [facility] Comment on above: Performed By: #### L [id number] #### [facility] ([facility] [address] [place] [address] Hematocrit (Bld) [Volume fraction] 34.7 % Low 36.0-48.0 [facility] Comment on above: Performed By: #### L [id number] #### [facility] ([facility]) [address] [place] [address] Hemoglobin (Bld) [Mass/Vol] 11.0 g/dL Low 12.0-15.0 [facility] Comment on above: Performed By: #### L [id number] #### [facility] ([facility]) [address] [place] [address] MCH (RBC) [Entitic mass] 27.4 pg Normal 27.0-33.0 [facility] Comment on above: Performed By: #### L [id number] #### [facility] ([facility]) [address] [place] [address] MCV (RBC) [Entitic vol] 86.5 fL Normal 82.0-98.0 [facility] Comment on above: Performed By: #### L [id number] #### [facility] ([facility]) [address] [place] [address] PLATELETS (10*3/UL) IN BLOOD AUTOMATED COUNT 349 10*3/uL Normal 150-400 [facility] Comment on above: Performed By: #### L [id number] #### [facility] ([facility]) [address] [place] [address] RBC (Bld) [#/Vol] 4.01 10*6/uL Normal 3.80-5.00 [facility] Comment on above: Performed By: #### L [id number] #### [facility] ([facility]) [address] [place] [address] WBC (Bld) [#/Vol] 7.22 10*3/uL Normal 4.00-10.60 [facility] Comment on above: Performed By: #### L [id number] #### [facility] ([facility] [address] [place] [address] 30on 11-20-2023 30 Problem: Pain Goal: LTG-Verbalize [...] [facility] ([facility]) [address] [place] [address] ERYTHROCYTE MEAN CORPUSCULAR HEMOGLOBIN CONCENTRATION (G/DL) BY AUTOMATED 31.9 g/dL Low 32.0-35.0 [facility] Comment on above: Performed By: #### L [id number] #### [facility] ([facility]) [address] [place] [address] Hematocrit (Bld) [Volume fraction] 36.1 % Normal 36.0-48.0 [facility] Comment on above: Performed By: #### L [id number] #### [facility] ([facility]) [address] [place] [address] Hemoglobin (Bld) [Mass/Vol] 11.5 g/dL Low 12.0-15.0 [facility] Comment on above: Performed By: #### L [id number] #### [facility] ([facility]) [address] [place] [address] MCH (RBC) [Entitic mass] 27.4 pg Normal 27.0-33.0 [facility] Comment on above: Performed By: #### L [id number] #### [facility] ([facility]) [address] [place] [address] MCV (RBC) [Entitic vol] 86.2 fL Normal 82.0-98.0 [facility] Comment on above: Performed By: #### L [id number] #### [facility] ([facility]) [address] [place] [address] PLATELETS (10*3/UL) IN BLOOD AUTOMATED COUNT 388 10*3/uL Normal 150-400 [facility] Comment on above: Performed By: #### L [id number] #### [facility] ([facility]) [address] [place] [address] RBC (Bld) [#/Vol] 4.19 10*6/uL Normal 3.80-5.00 [facility] Comment on above: Performed By: #### L [id number] #### [facility] ([facility]) [address] [place] [address] WBC (Bld) [#/Vol] 9.02 10*3/uL Normal 4.00-10.60 [facility] Comment on above: Performed By: #### L [id number] #### [facility] ([facility]) [address] [place] [address] COMPREHENSIVE METABOLIC PANE Nacho 11-20-2023 Albumin [Mass/Vol] 3.8 g/dL Normal 3.5-5.7 [facility] Comment on above: Performed By: #### L [id number] ####[facility] ([facility] [place] [address] ALP [Catalytic activity/Vol] 118 U/L High 34-104 [facility] Comment on above: Performed By: #### L [id number] ####[facility] ([facility])[address] [place] [place] [address] ALT [Catalytic activity/Vol] 19 U/L Normal 7-52 [facility] Comment on above: Performed By: #### L [id number] ####[facility] ([facility])[address] [place] [address] Anion gap [Moles/Vol] 9 mmol/L Normal 7-20 [facility] Comment on above: Performed By: #### L [id number] ####[facility] ([facility])[address] [place] [address] AST [Catalytic activity/Vol] 28 U/L Normal 13-39 [facility] Comment on above: Performed By: #### L [id number] ####[facility] ([facility])[address] [place] [address] Bilirubin [Mass/Vol] 0.6 mg/dL Normal 0.3-1.0 [facility] Comment on above: Performed By: #### L [id number] ####[facility] ([facility] [place] [address] Calcium [Mass/Vol] 8.9 mg/dL Normal 8.6-10.3 [facility] Comment on above: Performed By: #### L [id number] ####[facility] ([facility] [place] [address] Chloride [Moles/Vol] 101 mmol/L Normal 98-107 [facility] Comment on above: Performed By: #### L [id number] ####[facility] ([facility] [place] [address] CO2 [Moles/Vol] 29 mmol/L Normal 21-31 [facility] Comment on above: Performed By: #### L [id number] ####[facility] ([facility] [place] [address] Creatinine [Mass/Vol] 0.75 mg/dL Normal 0.60-1.20 [facility] Comment on above: Performed By: #### L [id number] ####[facility] ([facility])[address] [place] [address] GLOMERULAR FILTRATION RATE ML/MIN/1.73 SQ M.PREDICTED 85.1 mL/min/1.73m*2 Normal >60.0 [facility] Comment on above: Result Comment: The [...] L [id number] ####[facility] ([facility] [place] [address] Glucose [Mass/Vol] 116 mg/dL High 70-100 [facility] Comment on above: Performed By: #### L [id number] ####[facility] ([facility] [place] [address] Potassium [Moles/Vol] 4.2 mmol/L Normal 3.5-5.1 [facility] Comment on above: Performed By: #### L [id number] ####[facility] ([facility] [place] [address] Protein [Mass/Vol] 7.0 g/dL Normal 6.0-8.3 [facility] Comment on above: Performed By: #### L [id number] ####[facility] ([facility])[address] [place] [address] Sodium [Moles/Vol] 135 mmol/L Low 136-145 [facility] Comment on above: Performed By: #### L [id number] ####[facility] ([facility])[address] [place] [address] Urea nitrogen [Mass/Vol] 12 mg/dL Normal 7-25 [facility] Comment on above: Performed By: #### L [id number] ####[facility] ([facility])[address] [place] [address] UREA NITROGEN/CREATININE (MASS RATIO) IN SER/PLAS 16.0 Normal [facility] Comment on above: Performed By: #### L [id number] ####[facility] ([facility]ER)[address] [place] [address] CONSULTon 11-20-2023 CONSULT Clinical Nutrition Assessment: Name: Jenny Watt Room: [address] [place] [address] Date: 1950 Date of Visit: 11/20/23 Admission [...] Last BM 11/18; c/o N/V/D 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 CT [...] (11/20/2023). 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 For weekends & holidays, the dietitian can be reached via pager [phone] from 9A-3P. Unable to respond to [employer] chat messages on Saturday & . [facility] Attestation signed by Saida Lai MD at 11/21/2023 8:37 AM Attending Physician Statement I have discussed the case, including pertinent history and exam findings with Dr. Tanner, surgical territory manager and have personally seen the patient. I agree with the assessment, plan and orders as documented. [phone] pager [phone] phone [facility] General Surgery HISTORY & PHYSICAL Reason for Admission: diverticulitis History of Present Illness: Jenny Watt is a 73 y.o. female with PMH of atrial fibrillation s/p ablation on amiodarone and eliquis, HTN, hypothyroidism, and sleep apnea and past surgical history of a cholecystectomy who presents to [facility] as a direct transfer from [facility] with diverticulitis. Pt had been having on [...] [facility] [place] [address] NURSNOTEon 11-20-2023 NURSNOTE Bedside reporting do ne, [...] room for 10 min at 1830 pm [facility] NURSNOTE Pt up walking around in room, tolerates well , with walker. [facility] RIYA Lai notified th at we need admission orders. Notified via secure [employer] chat. Normal [facility] ULISESNOTE Pt arrived as a dire ct admission from [facility], no c/o of pain or SOB at this time Assessment completed Telemetry started on pt. Bed alarm on [facility] PHOSPHORUSon 11-20-2023 Magnesium [Mass/Vol] 2.5 mg/dL Normal 1.9-2.7 [facility] Comment on above: Performed By: #### L [id number] #### [facility] ([facility]) [address] [place] [address] Performed By: #### L [id number] #### [facility] ([facility]) [address] [place] [address] PROTIME-INRon 11-20-2023 INR IN PPP BY COAGULATION [...] [facility] ([facility]) [address] [place] [address] PROTHROMBIN TIME (PT) IN PPP BY COAGULATION ASSAY 15.8 Seconds High 12.3-14.8 [facility] Comment on above: Performed By: #### L [id number] #### [facility] (ALL) [address] [place] [address] 36on 08-01-2023 36 Regarding echo performed on 06/27/2023: Echo is stable per Lissa Spencer CNP. I called patient and made her aware. She asked about her lab work. I told her we didn't have a copy of it in her chart. Labs were then obtained from [facility] portal and uploaded into her sediment remediation consultant for Lissa's review. I told her I'd call her back if he didn't like the results. She thanked me and verbalized understanding. [facility] Orders Onlyon 06-25-2023 Orders Only [id number] JustaGavi daojosie Magaña 1950 F Date Provider Department Center 06/25/2023 CRISTIANE MORALES Family History Problem Relation Age of Onset Heart attack Father Atrial fibrillation Father Atrial fibrillation Sister Family Status - Relation Status Age at Father Sister [facility] Office Visiton 06-18-2023 Follow-up visit [id number] Jenny Watt 1950 F Date Provider Department Center 06/18/2023 LISSA CASTRO Family History Problem Relation Age of Onset Heart attack Father Atrial fibrillation Father Atrial fibrillation Sister Family Status - Relation Status Age at Father Sister Level of Service:87617 AL OFFICE/OUTPATIENT ESTABLISHED MOD MDM 30 MIN [facility] Orders Onlyon 02-20-2023 Orders Only [id number] JustaGavi daojosie Magaña 1950 F Date Provider Department Center 02/20/2023 VALENTE LYNN Family History Problem Relation Age of Onset Heart attack Father Atrial fibrillation Father Atrial fibrillation Sister Family Status - Relation Status Age at Father Sister [facility] 36on 12-11-2022 36 Patient called back and I made her aware. Lab results faxed to PCP. [facility] 36on 12-10-2022 36 Please let her know her CXR was normal. Her labs showed her kidney function, liver function and blood counts were all normal. Her bad cholesterol levels were above goal. She is at 119, would like for her to be less than 100 for stroke and [place] prevention. Recommend heart healthy diet such as the mediterranean diet and trying to implement some form of exercising. Her thyroid function is a little elevated but better since her last labs we have on file from 2019. Please make sure she follows up with her PCP for her thyroid management. Continue with follow-up amio testing q6 months. Thank you! [facility] Telephoneon 12-10-2022 Telephone [phone] Jenny Watt 1950 F Date Provider Department Center 12/10/2022 YUAN [facility] Family History Problem Relation Age of Onset Heart attack Father Atrial fibrillation Father Atrial fibrillation Sister Family Status - Relation Status Age at Father Sister [facility] Covid-19 PCR (CVDTB)on 02-16 SARS-CoV-2 (COVID-19) RNA SP+probe Ql (Unsp spec) Not detected Normal NOT DETECTED [facility] Comment on above: Result Comment: When diagnostic [...] for this test is supported by the [employer] of [employer] and Human Service's declaration that [...] used). Performed By: #### C VDTB #### [facility] [address] [place] [address] Dr. Maik Singleton BASIC METABOLIC PANELon - Calcium [Mass/Vol] 8.1 mg/dL Low 8.6-10.3 [facility] Comment on above: Order Comment: No: D o not add to previous draw Performed By: #### 1 69, [id number] #### [facility] [address] [place] [address], [place] Chloride [Moles/Vol] 99 mmol/L Normal 98-107 [facility] Comment on above: Order Comment: No: D o not add to previous draw Performed By: #### 1 69, 89340 #### [facility] [address] [place] [address], [place] CO2 [Moles/Vol] 27 mmol/L Normal 21-31 The [facility] Comment on above: Order Comment: No: D o not add to previous draw Performed By: #### 1 69, 07072 #### [facility] [address] [place] [address], [place] Creatinine [Mass/Vol] 0.82 mg/dL Normal 0.60-1.20 [facility] Comment on above: Order Comment: No: D o not add to previous draw Performed By: #### 1 69, 03713 #### [facility] [address] [place] [address], [place] GFR/1.73 sq M.predicted among blacks MDRD (S/P/Bld) [Vol rate/Area] mL/min/{1.73_m2} Normal >60 [facility] Comment on above: Order Comment: No: D o not add to previous draw Performed By: #### 1 69, 38860 #### [facility] [address] [place] [address], [facility] GFR/1.73 sq M.predicted among non-blacks MDRD (S/P/Bld) [Vol rate/Area] mL/min/{1.73_m2} Normal >60 [facility] Comment on above: Order Comment: No: D o not add to previous draw Performed By: #### 1 69, 45643 #### [facility] [address] [place] [address], [facility] Glucose [Mass/Vol] 109 mg/dL High 70-100 The [facility] Comment on above: Order Comment: No: D o not add to previous draw Performed By: #### 1 69, 08726 #### [facility] [address] [place] [id number], [facility] Potassium [Moles/Vol] 4.0 mmol/L Normal 3.5-5.1 [facility] Comment on above: Order Comment: No: D o not add to previous draw Performed By: #### 1 69, 04661 #### [facility] [address] [place] [address], [facility] Sodium [Moles/Vol] 134 mmol/L Low 136-145 [facility] Comment on above: Order Comment: No: D o not add to previous draw Performed By: #### 1 69, 89769 #### [facility] [address] [place] [address], [facility] Urea nitrogen [Mass/Vol] 12 mg/dL Normal 7-25 [facility] Comment on above: Order Comment: No: D o not add to previous draw Performed By: #### 1 69, 62544 #### [facility] [address] [place] [id number], [facility] CBC COMPLETE BLOOD COUNTon 0 2- Erythrocyte distribution width (RBC) [Ratio] 15.5 % High 11.5-15.0 [facility] Comment on above: Order Comment: No: D o not add to previous draw Performed By: #### 5 0608 #### [facility] [address] [place] [id number], [facility] Hematocrit (Bld) [Volume fraction] 36.9 % Normal 36.0-45.0 [facility] Comment on above: Order Comment: No: D o not add to previous draw Performed By: #### 5 0608 #### [facility] [address] [place] [id number], [facility] Hemoglobin (Bld) [Mass/Vol] 11.5 g/dL Low 12.0-15.0 [facility] Comment on above: Order Comment: No: D o not add to previous draw Performed By: #### 5 0608 #### [facility] [address] [place] [id number], [facility] MCH (RBC) [Entitic mass] 27.1 pg Normal 27.0-33.0 [facility] Comment on above: Order Comment: No: D o not add to previous draw Performed By: #### 5 0608 #### [facility] [address] [place] [address], [facility] MCHC (RBC) [Mass/Vol] 31.2 g/dL Low 32.0-35.0 [facility] Comment on above: Order Comment: No: D o not add to previous draw Performed By: #### 5 0608 #### [facility] [address] [place] [address], [facility] MCV (RBC) [Entitic vol] 87.0 fL Normal 82.0-98.0 [facility] Comment on above: Order Comment: No: D o not add to previous draw Performed By: #### 5 0608 #### [facility] [address] [place] [id number], [facility] Nucleated RBC/100 WBC (Bld) [Ratio] 0 % Normal 0-0 [facility] Comment on above: Order Comment: No: D o not add to previous draw Performed By: #### 5 0608 #### [facility] [address] [place] [address], [facility] PLAT CNT 258 10*3/uL Normal 150-400 The [facility] Comment on above: Order Comment: No: D o not add to previous draw Performed By: #### 5 0608 #### [facility] [address] [place] [address], [facility] RBC (Bld) [#/Vol] 4.24 10*6/uL Normal 3.80-5.00 [facility] Comment on above: Order Comment: No: D o not add to previous draw Performed By: #### 5 0608 #### [facility] [address] [place] [address], [facility] WBC (Bld) [#/Vol] 10.20 10*3/uL Normal 4.00-10.60 [facility] Comment on above: Order Comment: No: D o not add to previous draw Performed By: #### 5 0608 #### [facility] [address] [facility] [address] MAGNESIUM BLOODon 08-10-2021 Magnesium [Mass/Vol] 2.2 mg/dL Normal 1.9-2.7 [facility] Comment on above: Order Comment: No: D o not add to previous draw Performed By: #### 1 0070, 94132 #### [facility] [address] [facility]. [address] APTTon 08-09-2021 aPTT Coag (Bld) [Time] [...] THIS PURPOSE. Performed By: #### 5 6101, 89489 #### [facility] [address] [facility] [place] [address], [facility] CBC W/DIFFon 08-09-2021 ABS IMM GRANS 0.0 10*3/uL Normal 0.0-0.2 [facility] Comment on above: Performed By: #### 5 0103 #### [facility] [address] [facility] [place] [address], [facility] ABS NEUTROPHILS 5.1 10*3/uL Normal 1.6-7.6 The [facility] Comment on above: Performed By: #### 5 0103 #### [facility] [address] [facility] [place] [address], [facility] Basophils (Bld) [#/Vol] 0.0 10*3/uL Normal 0.0-0.2 [facility] Comment on above: Performed By: #### 5 0103 #### [facility] [address] [facility] [place] [address], [facility] Basophils/100 WBC (Bld) 0.4 % Normal 0.0-1.0 [facility] Comment on above: Performed By: #### 5 0103 #### [facility] [address] [facility] [place] [address], [facility] Eosinophils (Bld) [#/Vol] 0.2 10*3/uL Normal 0.0-0.5 [facility] Comment on above: Performed By: #### 5 0103 #### [facility] [address] [facility] [place] [address], [facility] Eosinophils/100 WBC (Bld) 2.3 % Normal 0.0-6.0 [facility] Comment on above: Performed By: #### 5 3 #### [facility] [address] [place] [id number], [facility] Erythrocyte distribution width (RBC) [Ratio] 15.3 % High 11.5-15.0 [facility] Comment on above: Performed By: #### 5 0103 #### [facility] [address] [facility] [place] [address], [facility] Hematocrit (Bld) [Volume fraction] 37.4 % Normal 36.0-45.0 [facility] Comment on above: Performed By: #### 5 0103 #### [facility] [address] [facility] [place] [address], [facility] Hemoglobin (Bld) [Mass/Vol] 11.5 g/dL Low 12.0-15.0 [facility] Comment on above: Performed By: #### 5 0103 #### [facility] [address] IMMATURE GRANS 0.3 % Normal 0.0-1.0 [facility] Comment on above: Performed By: #### 5 0103 #### [facility] [address] Lymphocytes (Bld) [#/Vol] 1.1 10*3/uL Low 1.2-4.0 [facility] Comment on above: Performed By: #### 5 0103 #### [facility] [address] [place] [address], [facility] Lymphocytes/100 WBC (Bld) 16.1 % Low 20.0-45.0 [facility] Comment on above: Performed By: #### 5 0103 #### [facility] [address] [facility] [place] [address], [facility] MCH (RBC) [Entitic mass] 26.9 pg Low 27.0-33.0 [facility] Comment on above: Performed By: #### 5 3 #### [facility] [address] [facility] [place] [address], [facility] MCHC (RBC) [Mass/Vol] 30.7 g/dL Low 32.0-35.0 [facility] Comment on above: Performed By: #### 102 #### [facility] [address] MCV (RBC) [Entitic vol] 87.4 fL Normal 82.0-98.0 [facility] Comment on above: Performed By: #### 102 #### [facility] [address] [place] [address], [facility] Monocytes (Bld) [#/Vol] 0.6 10*3/uL Normal 0.1-1.0 [facility] Comment on above: Performed By: #### 5 102 #### [facility] [address] MONOS 8.8 % Normal 5.0-12.0 [facility] Comment on above: Performed By: #### 5 102 #### [facility] [address] Neutrophils/100 WBC (Bld) 72.1 % High 40.0-72.0 [facility] Comment on above: Performed By: #### 102 #### [facility] [address] Nucleated RBC/100 WBC (Bld) [Ratio] 0 % Normal 0-0 [facility] Comment on above: Performed By: #### 5 102 #### [facility] [address] [place] [address], [facility] PLAT CNT 271 10*3/uL Normal 150-400 [facility] Comment on above: Performed By: #### 102 #### [facility] [address] [place] [address], [facility] RBC (Bld) [#/Vol] 4.28 10*6/uL Normal 3.80-5.00 [facility] Comment on above: Performed By: #### 102 #### [facility] [address] [facility]. [address] WBC (Bld) [#/Vol] 7.02 10*3/uL Normal 4.00-10.60 [facility] Comment on above: Performed By: #### 5 0103 #### [facility] [address] [facility]. [address] COMP METABOLIC PANELon 08-09 Albumin [Mass/Vol] 3.8 g/dL Normal 3.5-5.7 [facility] Comment on above: Performed By: #### 0 0121 #### [facility] [address] ALKALINE PHOSPH 140 IU/L High 34-104 [facility] Comment on above: Performed By: #### 0 0121 #### [facility] [address] ALT [Catalytic activity/Vol] 13 U/L Normal 7-52 [facility] Comment on above: Performed By: #### 0 0121 #### [facility] [address] AST [Catalytic activity/Vol] 17 U/L Normal 13-39 [facility] Comment on above: Performed By: #### 0 0121 #### [facility] [address] [facility]. [address] Bilirubin [Mass/Vol] 0.5 mg/dL Normal 0.3-1.0 [facility] Comment on above: Performed By: #### 0 0121 #### [facility] [address] [facility]. [address] Calcium [Mass/Vol] 8.7 mg/dL Normal 8.6-10.3 [facility] Comment on above: Performed By: #### 0 0121 #### [facility] [address] [place] [address], [place] Chloride [Moles/Vol] 104 mmol/L Normal 98-107 [facility] Comment on above: Performed By: #### 0 0121 #### [facility] [address] [place] [address], [place] CO2 [Moles/Vol] 28 mmol/L Normal 21-31 [facility] Comment on above: Performed By: #### 0 0121 #### [facility] [address] [place] [address], [place] Creatinine [Mass/Vol] 0.74 mg/dL Normal 0.60-1.20 [facility] Comment on above: Performed By: #### 0 0121 #### [facility] [address] [place] [address], [place] GFR/1.73 sq M.predicted among blacks MDRD (S/P/Bld) [Vol rate/Area] mL/min/{1.73_m2} Normal >60 [facility] Comment on above: Performed By: #### 0 0121 #### [facility] [address] [place] [address], [place] GFR/1.73 sq M.predicted among non-blacks MDRD (S/P/Bld) [Vol rate/Area] mL/min/{1.73_m2} Normal >60 [facility] Comment on above: Performed By: #### 0 0121 #### [facility] [address] [place] [address], [place] Glucose [Mass/Vol] 116 mg/dL High 70-100 [facility] Comment on above: Performed By: #### 0 0121 #### [facility] [address] [place] [address], [place] Potassium [Moles/Vol] 3.9 mmol/L Normal 3.5-5.1 [facility] Comment on above: Performed By: #### 0 0121 #### [facility] [address] [place] [address], [facility] Protein [Mass/Vol] 6.4 g/dL Normal 6.0-8.3 [facility] Comment on above: Performed By: #### 0 0121 #### [facility] [address] [place] [address], [facility] Sodium [Moles/Vol] 138 mmol/L Normal 136-145 [facility] Comment on above: Performed By: #### 0 0121 #### [facility] [address] [place] [address], [facility] Urea nitrogen [Mass/Vol] 10 mg/dL Normal 7-25 [facility] Comment on above: Performed By: #### 0 0121 #### [facility] [address] Cardiovascular Lab Reporton 08-09-2021 Cardiovascular Lab Report [facility] Patient Name: Jenny Watt [facility] MR #: [id number] Physician: Charli Pulido MD Department of Service Date: 08/09/2021 Medicine Birthdate: 1950 Division of Room #: 3CD 272500 Cardiology Adult Cardiovascular Services [place] [address] Cardiovascular Laboratory Report ATRIAL FIBRILLATION ABLATION PROCEDURE [...] in Afib. Esophagus was mapped using the MammotomeUND 3D mapping software with quadripolar catheter and [...] Glucose [Mass/Vol] 107 mg/dL High 70-100 [facility] Comment on above: Performed By: #### 8 5499 #### [facility] [address] [facility]. [address] PROTHROMBIN TIMEon 2 INR Coag (PPP) [...] CHEST 1995;[id number]. Performed By: #### 5 6101, 87683 #### [address] PT Coag (PPP) [Time] 13.3 s Normal 12.3-14.8 [facility] Comment on above: Result Comment: ALL RESULTS MUST BE INTERPRETED WITH RESPECT TO BLOOD DRAWING ARTIFACT OR DILUTION ERROR OF ANTICOAGULANT AT THE TIME OF SAMPLING. Performed By: #### 5 6101, 89198 #### [facility] [address] CTA CHESTon 08-08-2021 CTA CHEST [facility] Department of Radiology [address] [place] [id number] ===== Patient Name: JENNY WATT : [...] examination. Electronically signed: Audrey Umana. Transcribed by: [email or web address], User Resident: Electronically Signed by: AUDREY UMANA @ 08/08/2021 03:05 PM Normal [facility] Comment on above: Order Comment: , Gavin b Ablation 08/09/21 Covid-19 PCR (CVDTB)on 05-18 SARS-CoV-2 (COVID-19) RNA SP+probe Ql (Unsp spec) Not detected Normal NOT DETECTED [facility] Comment on above: Result Comment: This test is not yet approved or cleared by the [place] FDA. When there are no FDA-approved or cleared tests available, and other criteria are met, FDA can make tests available under an emergency access mechanism called an Emergency Use Authorization (EUA). The EUA for this test is supported by the [employer] of [employer] and Human Service's (HHS's) declaration [...] SARS-CoV-2. Performed By: #### C TB #### [facility] [address] [place] [address] [address] Maik Singleton Encounters Encounter Date Encounter Type Care Provider Facility Start: 01-21-2024 ambulatory Pasha BACH Facility :[facility] Start: 11-26-2023 ambulatory Pasha BACH Facility:[facility] Start: 11-21-2023 Evaluation and manag ement of inpatient [facility] Start: 11-20-2023 Evaluation and manag ement of inpatient ROHIT DELCID [facility] Start: 11-20-2023 End: 11-22-2023 Evaluation and management of inpatient EDUARDO WALKER [facility] Start: 06-18-2023 End: 06-18-2023 ambulatory [facility] Start: 03-07-2022 End: 03-07-[address] KERRI SMITH Facility: Start: 08-09-2021 End: 08-10-2021 ambulatory KERRI SMITH Facility:[facility] Start: 06-18-2021 Encounter for prepro cedural laboratory examination CHARLI PULIDO [facility] Start: 06-14-2021 End: 06-14-[address] DOCTOR DIXON Facility:[facility] Start: 06-12-2021 End: 06-12-2021 ambulatory CHARLI PUILDO Facility:[facility] Start: 06-12-2021 End: 06-12-2021 Encounter for preprocedural laboratory examination CHARLI PULIDO Facility:[facility] Payers Date Payer Category Payer Medicare [id number] 1959 Private Health Insurance [id number] 1950 Unknown [id number] [id number] 1950 Unknown [id number] 2.16.84 [id number] 1950 Unknown [id number] 2.16.84 [id number] 1950 Unknown [id number] 2.16.84 [id number] 1950 Unknown [id number] 2.16.8 [id number] Progress note 11-22-2023 Note Date & Type Note Facility 11-22-2023 Note [facility] General Surgery DAILY PROGRESS NOTE Subjective [...] and behaviors that affect risk of falls Twining fall precautions as indicated by assessment Educate [...] and exam findings with Dr. Tanner, surgical territory manager and have personally seen the patient. I agree with the assessment, plan and orders as documented. 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 Yes Does the patient have a trimming caser assigned to them through their insurance? No [...] PMHx: a.fib; HTN, anxiety FMHx: father - [place]; sister - a.fib; father - a.fib Echocardiogram [...] & Type Note Facility 06-14-2021 Note [facility] [place], [place] NAME: JENNY WATT DATE OF : MEDICAL REC#: [id number] SENIOR LOAN PROCESSOR: CASSIE DOMINGUEZ ADMIT DATE: 06/14/2021 08:37:00 CASE INVESTIGATOR DATE: 06/20/2021 08:00 DICTATING PHYSICIAN: CHARLI PULIDO DICTATION DATE: 06/14/2021 18:00 duplicate entry Electronically Authenticated and Edited by: Charli Pulido MD on 12/05/2021 07:50 PM EDT [facility] [place], [place] NAME: JENNY WATT DATE OF : MEDICAL REC#: [id number] SENIOR LOAN PROCESSOR: CASSIE DOMINGUEZ ADMIT DATE: 06/14/2021 08:37:00 CASE INVESTIGATOR DATE: 06/20/2021 08:00 DICTATING PHYSICIAN: CHARLI PULIDO [...] in an anterior/posterior direction. 360 joules of [place]'s cardioversion on two occasions did not convert [...] Approved by: CHARLI PULIDO 12/05/2021 19:42:00 [facility] Summary Purpose Family History No Family History Records FoundNo Family History Records FoundNo Family History Records FoundNo Family History Records Found Advance Directives No Advanced Directives Records FoundNo Advanced Directives Records FoundNo Advanced Directives Records FoundNo Advanced Directives Records Found Additional Source Comments INFORMATION SOURCE (unrecogn ized section and content) DATE CREATED AUTHOR 08/17/2021 [facility] DATE CREATED AUTHOR AUTHOR'S ORGANIZ ATION 05/19/2022 [facility] DATE CREATED AUTHOR AUTHOR'S ORGANIZ ATION 12/04/2023 [facility] DATE CREATED AUTHOR AUTHOR'S ORGANIZ ATION 12/19/2023 [facility] FOR RECORDS PERTAINING TO PATIENTS WHO [...] BE BASED ON THE PRIMARY CLINICAL RECORDS. [employer] [facility]. provides no warranty or guarantee of the accuracy or completeness of information in this document.
[2024-01-18] MEDS: LACTATED RINGER'S SOLUTION 1,000 ML 125 ML IV (10:41)
[2024-01-18] MEDS: METRONIDAZOLE/SODIUM CHLORIDE 500 MG/100 ML PREMIX 100 MG IV (10:42)
[2024-01-18 10:43] LABS: Bacteria Urine TRACE #/HPF (NONE SEEN); Crystals Seen? None Seen #/HPF (None Seen); Mucus Urine SMALL (NONE SEEN); RBC Urine 0-2 #/HPF (0-2); Squamous Epithelial Cell Urine FEW #/LPF (NONE/RARE); Urine Culture Indicated NO; WBC Urine 0-2 #/HPF (NONE SEEN)
[2024-01-18 10:49] VITALS: BP 132/67; PULSE 82; TEMP 36.7; O2SAT 97; BMI 44.2
--- NOTE | 2024-01-18 11:02 | PM.HP ---
HPI H&P: HPI History of Present Illness Chief complaint: NAUSEA, CONSTIPATION/ DIVERTICULITIS Narrative: HPI and Hospital course: 73-year-old female with recent history of diverticulitis presents with nausea, generalized abdominal pain, constipation and poor oral intake for past 2 to 3 days. She reports nausea, loss of appetite and that she has not been eating or drinking much for the past couple of days. She has generalized abdominal pain and abdominal bloating. She had a small bowel movement earlier today and feels a little bit better compared to before. She denies diarrhea, blood in her stool. She denies vomiting. Patient's workup in ER showed annular irregular thickening at the junction of descending and sigmoid colon concerning for neoplasm. She is already scheduled to follow-up with general surgery as outpatient on Saturday to consult for colonoscopy. [facility] and already feels a little bit better. Patient tolerated oral diet well. All her symptoms more or less resolved. stable for discharge on oral abx for suspected diverticulitis. Pt instructed to return to ED if she develops intractable nausea/vomiting or abdominal pain Opioid HPI Opioid Management Most Recent Pain and Opioid Data: Last Pain Scale 7 01/18/24 07:58 Last Pain Assessment 01/18/24 11:43 Last MAR Pain Assessment 01/18/24 07:58 Last ORT Total Score 0 01/18/24 10:49 Last ORT Risk Category Low Risk 01/18/24 10:49 Review of Systems ROS Status of ROS 10 or more systems reviewed and unremarkable except as noted in history and below [facility] Medical History (Updated 01/18/24 @ 11:06 by Shaikh Tyler MD) Hypertension ?I10 - Essential (primary) hypertension (ICD-10) A-fib ?I48.91 - Unspecified atrial fibrillation (ICD-10) Acute diverticulitis ?K57.92 - Diverticulitis of intestine, part unspecified, without perforation or abscess without bleeding (ICD-10) Abdominal pain ?R10.9 - Unspecified abdominal pain (ICD-10) Surgical History (Updated 01/18/24 @ 10:18 by Sheri Mckeon) History of cholecystectomy ?Z90.49 - Acquired absence of other specified parts of digestive tract (ICD-10) Family History (Updated 01/18/24 @ 10:19 by Sheri Mckeon) Sister Family history of hypertension Father Family history of myocardial infarction Social History (Updated 01/18/24 @ 10:21 by Sheri Mckeon) Within the past year, how often did you have a drink containing alcohol: never Within the past year, how often did you have six or more drinks on one occasion: never Score interpretation: A score less than 3 is consistent with normal alcohol consumption. Smoking status: Former smoker Non-prescribed substance use: denies use Previous occupational history: retired Highest level of school completed/degree received: 10th grade Are you now , , , , never or living with a partner: In a typical week, how many times do you talk on the telephone with family, friends, or neighbors: 3 or more times per week How often do you get together with friends or relatives: twice per week How often do you attend mu-ism or christianity services: 4 or more times per year Do you belong to any clubs or organizations such as mu-ism groups unions, [employer] or athletic groups, or school groups: no Total score: 2 Score interpretation: A score of greater than or equal to 2 indicates the lowest level of social isolation. Little interest or pleasure in doing things: not at all Feeling down, depressed, or hopeless: not at all Feel stressed/tense/nervous/anxious/difficulty sleeping: not at all Gender Identity: female Meds Home Medications and Allergies Home Medications ?Medication ?Instructions ?Recorded ?Confirmed ?Type amiodarone 100 mg tablet 100 mg PO Q24H 11/19/23 01/18/24 History apixaban 5 mg tablet (Eliquis) 5 mg PO Q12H 11/19/23 01/18/24 History carvedilol 6.25 mg tablet 6.25 mg PO Q12H 11/19/23 01/18/24 History diltiazem HCl 180 mg capsule,24 180 mg PO Q24H 11/19/23 01/18/24 History hr,extended release (Tiadylt ER) doxepin 25 mg capsule 50 mg PO .pm 11/19/23 01/18/24 History irbesartan 300 mg tablet 300 mg PO DAILY 11/19/23 01/18/24 History levothyroxine 50 mcg tablet 50 mcg PO DAILY 11/19/23 01/18/24 History omeprazole 40 mg capsule,delayed 40 mg PO DAILY 11/19/23 01/18/24 History release linaclotide 72 mcg capsule 72 mcg PO DAILY 12/25/23 01/18/24 History (Linzess) metronidazole 500 mg tablet 500 mg PO Q8H #30 tabs 12/26/23 01/18/24 Rx doxepin 10 mg capsule 10 mg PO .QD 01/18/24 01/18/24 History Allergies Allergy/AdvReac Type Severity Reaction Status Date / Time No Known Drug Allergies Allergy Verified 01/18/24 07:39 Exam Constitutional Vital Signs, click to edit/add: Last Vital Signs Temp 98.1 F 01/18/24 10:49 Pulse 82 01/18/24 10:49 Resp 16 01/18/24 10:49 BP 132/67 01/18/24 10:49 Pulse Ox 97 01/18/24 10:49 O2 Del Method Room Air 01/18/24 10:49 Documenting provider has reviewed patient's vital signs: yes Common normals: no apparent distress and oriented x3 General appearance: cooperative Nutritional appearance: obese Respiratory Common normals: normal respiratory effort and clear to auscultation bilaterally Effort & inspection: able to speak in complete sentences Auscultation: clear to auscultation bilaterally Cardio Common normals: regular rate, S1 normal heart sound and S2 normal heart sound Rate: regular rate Heart sounds: S1 normal and S2 normal GI Common normals: Normal to inspection, nondistended, normoactive bowel sounds present, soft to palpation, non-tender and no hepatosplenomegaly Palpation: soft and no hepatosplenomegaly Extremity Common normals: no clubbing, cyanosis or edema Neuro Common normals: oriented x3, moves all extremities and no focal motor deficits Psych Common normals: mental status grossly normal, denies hallucinations, denies homicidal ideation and denies suicidal ideation Results Labs Labs: Short CBC 01/18/24 Range/Units 07:45 WBC 11.1 H (4.0-11.0) 10^3/uL Hgb 12.2 (12.0-16.0) g/dL Hct 38.5 (36.0-48.0) % Plt Count 360 (150-450) 10^3/uL BMP 01/18/24 07:45 Sodium 135 L Potassium 3.6 Chloride 99 Carbon Dioxide 25.9 BUN 10.0 Creatinine 0.90 Glucose 142 H Calcium 9.7 Liver Function 01/18/24 Range/Units 07:45 Total Bilirubin 0.7 (0.2-1.0) mg/dL Direct Bilirubin 0.2 (0.0-0.2) mg/dL AST 31 (15-37) U/L ALT 48 (14-59) U/L Alkaline Phosphatase 136 H (46-116) U/L Albumin 3.5 (3.4-5.0) g/dL Urine 01/18/24 Range/Units 09:30 Urine Color Yellow (YELLOW) Urine Clarity Clear (CLEAR) Urine pH 7.0 (5.0-9.0) Ur Specific [place] <=1.005 A (1.005-1.025) Urine Protein Negative (NEG/TRACE) mg/dL Urine Glucose (UA) Negative (NEGATIVE) mg/dL Assessment and Plan Assessment and Plan (1) Diverticulitis: Assessment and Plan: Suspected diverticulitis based on CT scan. Continue with IV Levaquin and Flagyl. tolerating oral diet Pain and nausea is well-controlled. Stable for discharge medically on oral antibiotic. Follow-up with general surgery as outpatient (2) Partial obstruction of colon: Assessment and Plan: Likely due to irregular/annular thickening at the junction of descending and sigmoid colon. Patient will need colonoscopy for which she is seeing Dr. Zhou on Saturday. Patient is tolerating oral diet and moving bowels. She is medically stable for discharge and can follow-up with general surgery as outpatient. (3) Hypertension: Assessment and Plan: Continue with home medications. Blood pressure is stable Qualifiers: Hypertension type: primary hypertension Qualified Code(s): I10 - Essential (primary) hypertension (4) A-fib: Assessment and Plan: Continue with amiodarone and Eliquis for A-fib. Currently normal sinus rhythm. Qualifiers: Atrial fibrillation type: paroxysmal Qualified Code(s): I48.0 - Paroxysmal atrial fibrillation Plan Stable for discharge on oral antibiotics. Follow-up with PCP in 1 weeks. follow-up with general surgery as previously planned on Saturday to discuss colonoscopy.
[2024-01-18 11:03] LABS: Cast Seen? NONE SEEN #/LPF (NONE SEEN)
[2024-01-18 11:06] VITALS: O2SAT 97
[2024-01-18] MEDS: AMIODARONE HCL 200 MG TABLET 100 MG PO (11:59)
[2024-01-18] MEDS: LOSARTAN POTASSIUM 50 MG TABLET 100 MG PO (11:59)
[2024-01-18] MEDS: APIXABAN 5 MG TABLET PO (11:59)
[2024-01-18] MEDS: DILTIAZEM HCL 180 MG CAP.ER.24H PO (11:59)
[2024-01-18] MEDS: CARVEDILOL 6.25 MG TABLET PO (11:59)
[2024-01-18] MEDS: LEVOFLOXACIN IN DEXTROSE 5 % 750 MG/150 ML IV.SOLN 100 MG IV (11:59)
--- NOTE | 2024-01-20 13:53 | CM.DCFOLLOWU ---
Person spoke with: Jenny How are you feeling? Still having constipation How is your pain? No pain Did you understand your discharge instructions? Yes Do you have any questions about your discharge instructions? No Were you given any prescriptions at discharge? Yes Were you able to get your prescriptions filled? Yes Do you understand how to take your medications as ordered? Yes Do you have any questions about your follow up appointment and do you plan to keep your follow up appointment? No I see Dr. López tomorrow for colon mass Is there anything else that you would like to discuss? No Questions/Comments/Concerns/Other:
== END 2024-01-18 16:35 | disposition home or self-care (01) | DRG 392 ==
LOC: ER 10:31 → MS 13:21
PROVIDERS: Admitting Provider Internal Medicine; Emergency Provider Emergency Medicine; PCP Family Medicine; Visit Provider Internal Medicine
DX: K57.92 Diverticulitis of intestine, part unspecified, without perforation or abscess without bleeding (principal); K56.600 Partial intestinal obstruction, unspecified as to cause; I10 Essential (primary) hypertension; I48.0 Paroxysmal atrial fibrillation; Z90.49 Acquired absence of other specified parts of digestive tract; Z87.891 Personal history of nicotine dependence; Z79.01 Long term (current) use of anticoagulants
CPT/HCPCS: 36415; 74177; 80048; 80076; 81001; 82150; 83690; 85025; 94761; 96365; 96366; 96367; 96375; 96376; 99285; G0378; J0744; J1836; J2250; J2270; J2405; Q9967

== ENCOUNTER 2024-01-27 16:58 | Inpatient (IN) | payer MEDICARE, OTHER, SELFPAY ==
[2024-01-27] VITALS (8 sets, daily range): BP systolic 121–150; BP diastolic 74–82; PULSE 52–79; TEMP 37.1; O2SAT 96–99; BMI 45.8; BMI 46.7
--- NOTE | 2024-01-27 17:18 | ED.ABDPAIN1 ---
HPI - Abdominal Pain General Chief Complaint: Abdominal Pain Stated Complaint: nausea, constipation Time Seen by Provider: 01/27/24 16:58 Source: patient Mode of arrival: walk-in Limitations: no limitations History of Present Illness HPI narrative: Patient is a 73-year-old female who presents to the emergency department for a 9-day history of diffuse abdominal discomfort, bloating and nausea. She was seen in this emergency department at that time, 9 days ago, and had a CT scan which showed some narrowing of the lower colon. Patient is concerned she has bowel obstruction today. She states she has not had a bowel movement in 3 days. Family member at bedside believes that the patient's abdomen is significantly distended compared to normal and the patient has not been passing gas. Patient reports belching and nausea with no vomiting. No fevers. She reports a previous cholecystectomy. She is taking Linzess only at home. No urinary symptoms. She states she is tolerating fluids. 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 Related Data Home Medications ?Medication ?Instructions ?Recorded ?Confirmed amiodarone 100 mg tablet 100 mg PO Q24H 11/19/23 01/18/24 apixaban 5 mg tablet (Eliquis) 5 mg PO Q12H 11/19/23 01/18/24 carvedilol 6.25 mg tablet 6.25 mg PO Q12H 11/19/23 01/18/24 diltiazem HCl 180 mg capsule,24 180 mg PO Q24H 11/19/23 01/18/24 hr,extended release (Tiadylt ER) doxepin 25 mg capsule 50 mg PO .pm 11/19/23 01/18/24 irbesartan 300 mg tablet 300 mg PO DAILY 11/19/23 01/18/24 levothyroxine 50 mcg tablet 50 mcg PO DAILY 11/19/23 01/18/24 omeprazole 40 mg capsule,delayed 40 mg PO DAILY 11/19/23 01/18/24 release linaclotide 72 mcg capsule 72 mcg PO DAILY 12/25/23 01/18/24 (Linzess) doxepin 10 mg capsule 10 mg PO .QD 01/18/24 01/18/24 Allergies Allergy/AdvReac Type Severity Reaction Status Date / Time No Known Drug Allergies Allergy Verified 01/18/24 07:39 Review of Systems ROS Constitutional Denies: fever or chills Ears, nose, mouth, and throat Denies: throat pain or nasal congestion Cardiovascular Denies: chest pain Respiratory Denies: shortness of breath or cough Gastrointestinal Reports: abdominal pain, nausea, heartburn, constipation, bloating and belching; Denies: vomiting or diarrhea Integumentary/Breast Denies: rash Neurological Denies: headache Hematologic/Lymphatic Denies: easy bruising or easy bleeding PFSH [facility] Medical History (Updated 01/27/24 @ 20:50 by SIMONE Silva) Partial obstruction of colon ?K56.600 - Partial intestinal obstruction, unspecified as to cause (ICD-10) Diverticulitis ?K57.92 - Diverticulitis of intestine, part unspecified, without perforation or abscess without bleeding (ICD-10) Hypertension ?I10 - Essential (primary) hypertension (ICD-10) A-fib ?I48.91 - Unspecified atrial fibrillation (ICD-10) Acute diverticulitis ?K57.92 - Diverticulitis of intestine, part unspecified, without perforation or abscess without bleeding (ICD-10) Abdominal pain ?R10.9 - Unspecified abdominal pain (ICD-10) Surgical History (Updated 01/18/24 @ 10:18 by Sheri Mckeon) History of cholecystectomy ?Z90.49 - Acquired absence of other specified parts of digestive tract (ICD-10) Family History (Updated 01/18/24 @ 10:19 by Sheri Mckeon) Sister Family history of hypertension Father Family history of myocardial infarction Social History Within the past year, how often did you have a drink containing alcohol: never Within the past year, how often did you have six or more drinks on one occasion: never Score interpretation: A score less than 3 is consistent with normal alcohol consumption. Smoking status: Former smoker Non-prescribed substance use: denies use Previous occupational history: retired Highest level of school completed/degree received: 10th grade Are you now , , , , never or living with a partner: In a typical week, how many times do you talk on the telephone with family, friends, or neighbors: 3 or more times per week How often do you get together with friends or relatives: twice per week How often do you attend worship or congregational services: 4 or more times per year Do you belong to any clubs or organizations such as worship groups unions, fraternal or athletic groups, or school groups: no Total score: 2 Score interpretation: A score of greater than or equal to 2 indicates the lowest level of social isolation. Little interest or pleasure in doing things: not at all Feeling down, depressed, or hopeless: not at all Feel stressed/tense/nervous/anxious/difficulty sleeping: not at all Gender Identity: female Exam Narrative Exam Narrative: Gen.: Awake, alert, in no distress Head: Normocephalic, atraumatic ENT: Moist mucous membranes Respiratory: No respiratory distress Gastrointestinal: Abdomen is distended and firm but not rigid, diffusely tender to palpation with no guarding or rebound Extremities: Moves extremities equally Psych: Normal mood and affect Neuro: No focal neuro deficit Skin: Warm, dry, intact Constitutional Vital Signs, click to edit/add: Last Vital Signs Temp 98.7 F 01/27/24 17:01 Pulse 52 L 01/27/24 19:34 Resp 18 01/27/24 19:34 BP 132/75 01/27/24 19:34 Pulse Ox 97 01/27/24 19:34 O2 Del Method Room Air 01/27/24 19:34 Course Vital Signs Vital signs: Vital Signs Temperature 98.7 F 01/27/24 17:01 Pulse Rate 79 01/27/24 17:01 Respiratory Rate 18 01/27/24 17:01 Blood Pressure 150/82 H 01/27/24 17:01 Pulse Oximetry 99 01/27/24 17:01 Temperature 98.7 F 01/27/24 17:01 Pulse Rate 52 L 01/27/24 19:34 Respiratory Rate 18 01/27/24 19:34 Blood Pressure 132/75 01/27/24 19:34 Pulse Oximetry 97 01/27/24 19:34 Oxygen Delivery Method Room Air 01/27/24 19:34 MDM - Abdominal Pain MDM Narrative Medical decision making narrative: Was given IV fluids, Zofran, Levsin, Protonix. She had no episodes of emesis in the emergency department. Pain was controlled. Vital signs are within normal limits. I discussed the case with Dr. López for general surgery who saw the patient last week as an outpatient to schedule a colonoscopy. He stated that he would like to do the colonoscopy sooner than the end of the month as scheduled and he can see the patient for a colonoscopy in the hospital on Saturday. I discussed this with Dr. Smith as well who is in agreement with the patient being admitted after her workup is complete. CT scan shows progression of the colonic dilation with stricture versus mass causing partial obstruction. The remainder of the CT is unchanged. I discussed this with the patient and her family members at bedside and she will be admitted to the hospitalist for further evaluation and treatment with anticipation for colonoscopy in the hospital. SUPERVISED APC VISIT, PHYSICIAN ATTESTATION: Based on the medical record the care appears appropriate. ? Medical Records Attestation: I reviewed the patient's medical records. Lab Data Attestation: I reviewed the patient's lab results. Labs: Lab Results 01/27/24 Range/Units 17:22 WBC 8.8 (4.0-11.0) 10^3/uL RBC 4.39 (4.20-5.40) 10^6/uL Hgb 12.0 (12.0-16.0) g/dL Hct 37.5 (36.0-48.0) % MCV 85.4 (81.0-99.0) fL MCH 27.3 (26.7-34.0) pg MCHC 32.0 (29.9-35.2) g/dL RDW 17.2 H (11.0-15.0) % Plt Count 431 (150-450) 10^3/uL MPV 10.4 (9.5-13.5) fL Neut % (Auto) 80.8 H (43.0-75.0) % Lymph % (Auto) 11.5 L (20.5-60.0) % [place] % (Auto) 6.0 (1.7-12.0) % Eos % (Auto) 0.9 (0.9-7.0) % Baso % (Auto) 0.3 (0.2-2.0) % Neut # (Auto) 7.1 H (1.4-6.5) 10^3/uL Lymph # (Auto) 1.0 L (1.2-3.8) 10^3/uL [place] # (Auto) 0.5 (0.3-0.8) 10^3/uL Eos # (Auto) 0.1 (0.0-0.7) 10^3/uL Baso # (Auto) 0.0 (0.0-0.1) 10^3/uL Abs Immat Gran (auto) 0.04 H (0.00-0.03) 10^3/uL Imm/Tot Granulo (auto) 0.5 (0.0-0.5) % Sodium 135 L (136-145) mmol/L Potassium 4.4 (3.5-5.1) mmol/L Chloride 101 (98-107) mmol/L Carbon Dioxide 27.7 (21.0-32.0) mmol/L Anion Gap 10.7 BUN 6.0 L (7.0-18.0) mg/dL Creatinine 0.70 (0.55-1.02) mg/dL Est GFR ( Amer) >60 (>=60) Est GFR (Non-Af Amer) >60 (>=60) BUN/Creatinine Ratio 8.6 Glucose 111 H (74-106) mg/dL Lactate 1.3 (0.4-2.0) mmol/L Calcium 9.2 (8.5-10.1) mg/dL Total Bilirubin 0.7 (0.2-1.0) mg/dL AST 24 (15-37) U/L ALT 25 (14-59) U/L Alkaline Phosphatase 128 H (46-116) U/L Total Protein 7.4 (6.4-8.2) g/dL Albumin 3.1 L (3.4-5.0) g/dL Globulin 4.3 g/dL Albumin/Globulin Ratio 0.7 Lipase 17.0 (16.0-77.0) U/L Imaging Data CT scan - abdomen: Attestation: I have reviewed the pertinent imaging results. Radiologist's impression: ITS Impressions Abdomen/Pelvis CT 01/27/24 19:08 IMPRESSION: 1. Progressive colonic distention proximal to the previously noted area of narrowing and wall thickening in the distal descending/proximal sigmoid colon consistent with a partial colonic obstruction likely due to a mass. Differential considerations also include a chronic diverticular stricture as there is diverticulosis in this region. A component of acute diverticulitis cannot be excluded. Recommend colonoscopy. 2. Stable 3.1 x 3.2 cm abdominal aortic aneurysm and bilateral common iliac artery aneurysms. Followup is recommended every 3 years. 3. Small cystocele. 4. Stable grade 2 anterolisthesis at L4-L5 due to pars defects. ABDOMINAL AORTIC ANEURYSM MANAGEMENT RECOMMENDATIONS: 2.6-2.9 cm: Follow-up every 5 years* 3.0-3.4 cm: Follow-up every 3 years. 3.5-3.9 cm: Follow-up every 1 year. 4.0-4.4 cm: Follow-up every 1 year. Recommend vascular consultation. 4.5-5.4 cm: Follow-up every 6 months. Recommend vascular consultation. Greater than or equal to 5.5 cm: Referral to vascular surgeon. *For abdominal aortas with maximum diameter of 2.6-2.9 cm meeting criteria for AAA (>50% of proximal normal segment). Reference: J Vasc Surg. 2008;50(4 Suppl):S2-49 Electronically authenticated by: ABRAHAN BERNSTEIN Date: 01/27/2024 20:31 Discharge Plan Discharge Chief Complaint: Abdominal Pain Patient Disposition: Admitted As Inpatient Time of Disposition Decision: 20:50 Prescriptions / Home Meds: No Action doxepin 10 mg capsule 10 mg PO .QD amiodarone 100 mg tablet 100 mg PO Q24H Eliquis 5 mg tablet 5 mg PO Q12H carvedilol 6.25 mg tablet 6.25 mg PO Q12H diltiazem HCl [Tiadylt ER] 180 mg capsule,extended release 24 hr 180 mg PO Q24H doxepin 25 mg capsule 50 mg PO .pm irbesartan 300 mg tablet 300 mg PO DAILY levothyroxine 50 mcg tablet 50 mcg PO DAILY omeprazole 40 mg capsule,delayed release(DR/EC) 40 mg PO DAILY Linzess 72 mcg capsule 72 mcg PO DAILY Print Language: Tongan Referrals: Lele Smith MD [Primary Care Provider] - 1 week
[2024-01-27] MEDS: PANTOPRAZOLE SODIUM 40 MG VIAL IV (17:30)
[2024-01-27] MEDS: ONDANSETRON PF 4 MG/2 ML VIAL IV (17:30)
[2024-01-27 17:31] LABS: Basophils Percent Auto 0.3 % (0.2-2.0); Eosinophils Absolute Auto 0.1 10^3/uL (0.0-0.7); Eosinophils Percent Auto 0.9 % (0.9-7.0); Hematocrit 37.5 % (36.0-48.0); Immature Granulocytes Abs Auto 0.04 10^3/uL (0.00-0.03); Immature Granulocytes Pct Auto 0.5 % (0.0-0.5); Lymphocytes Percent Auto 11.5 % (20.5-60.0); Mean Corpuscular Hemoglobin 27.3 pg (26.7-34.0); Mean Corpuscular Volume 85.4 fL (81.0-99.0); Mean Platelet Volume 10.4 fL (9.5-13.5); Monocytes Absolute Auto 0.5 10^3/uL (0.3-0.8); Neutrophils Absolute Auto 7.1 10^3/uL (1.4-6.5); Neutrophils Percent Auto 80.8 % (43.0-75.0); Platelet Count 431 10^3/uL (150-450); Red Blood Count 4.39 10^6/uL (4.20-5.40); Red Cell Distribution Width 17.2 % (11.0-15.0); White Blood Count 8.8 10^3/uL (4.0-11.0)
[2024-01-27] MEDS: 0.9 % SODIUM CHLORIDE 1,000 ML 100 ML IV (17:31)
[2024-01-27] MEDS: HYOSCYAMINE SULFATE 0.125 MG TAB.SUBL SL (17:31)
[2024-01-27 17:46] LABS: Alanine Aminotransferase 25 U/L (14-59); Albumin Globulin Ratio 0.7; Albumin Level 3.1 g/dL (3.4-5.0); Alkaline Phosphatase 128 U/L (46-116); Anion Gap 10.7; Aspartate Amino Transferase 24 U/L (15-37); BUN Creatinine Ratio 8.6; Bilirubin Total 0.7 mg/dL (0.2-1.0); Calcium 9.2 mg/dL (8.5-10.1); Carbon Dioxide 27.7 mmol/L (21.0-32.0); Chloride 101 mmol/L (98-107); Estimated GFR (African America >60 (>=60); Estimated GFR (Non-African Ame >60 (>=60); Globulin 4.3 g/dL; Glucose 111 mg/dL (74-106); Potassium 4.4 mmol/L (3.5-5.1); Sodium 135 mmol/L (136-145); Total Protein 7.4 g/dL (6.4-8.2)
[2024-01-27 17:50] LABS: Lactate/Lactic Acid 1.3 mmol/L (0.4-2.0)
--- NOTE | 2024-01-27 19:08 | CT_ITS ---
The [address] [address] Patient Name: ANGIE WATT MRN: [id number] date: 1950 Sex: F Assigned Patient Location: ER Current Patient Location: ER Accession/Order Number: [id number] Exam Date: 01/27/2024 18:57 Report Date: 01/27/2024 20:31 At the request of: BENITEZ MELGOZA Procedure: CT abdomen pelvis w con CT ABDOMEN AND PELVIS WITH CONTRAST: INDICATION: Abdominal pain, constipation. COMPARISON: CT abdomen and pelvis 01/18/2024. TECHNIQUE: Helical CT images of the abdomen and pelvis were obtained after the administration of intravenous contrast. Dose reduction techniques were achieved by using automated exposure control and/or adjustment of mA and/or kV according to patient size and/or use of iterative reconstruction technique. FINDINGS: LOWER CHEST: Normal. LIVER: Normal in size and attenuation. No focal lesions. GALLBLADDER AND BILIARY SYSTEM: Status-post cholecystectomy. SPLEEN: Normal. PANCREAS: Moderate to severe atrophy. ADRENAL GLANDS: Normal. KIDNEYS AND URETERS: Normal. VASCULATURE: Diffuse atherosclerotic calcification of the abdominal aorta, iliac, and femoral arteries. There is an infrarenal abdominal aortic aneurysm which measures 3.1 x 2 cm and is stable. Stable bilateral common iliac artery aneurysms measuring 3.4 cm on the left and 2.1 cm on the right. RETROPERITONEUM AND LYMPH NODES: Normal, with no lymphadenopathy. GASTROINTESTINAL TRACT/MESENTERY: There are multiple diverticula in the descending and sigmoid colon. Ascending, transverse, and proximal to mid descending colon appear moderately distended and contains air and fluid measuring up to 7.3 cm in diameter at the cecum, previously 5.5 cm. There is a focus of narrowing of the distal descending colon with wall thickening, image 90 series 3 which is similar to the previous study with some surrounding fat stranding as well. Again suspicious for a mass. Normal mesentery/peritoneum. Normal appendix. BLADDER: Low-lying with a small cystocele. REPRODUCTIVE SYSTEM: Normal uterus and adnexa. BODY WALL: Small fat-containing umbilical hernia. BONES: Grade 2 anterolisthesis at L4-L5 due to pars defects. Stable. Severe degenerative changes with narrowing at the L4-L5 disc space which is stable. CT/CT abdomen pelvis w con IMPRESSION: 1. Progressive colonic distention proximal to the previously noted area of narrowing and wall thickening in the distal descending/proximal sigmoid colon consistent with a partial colonic obstruction likely due to a mass. Differential considerations also include a chronic diverticular stricture as there is diverticulosis in this region. A component of acute diverticulitis cannot be excluded. Recommend colonoscopy. 2. Stable 3.1 x 3.2 cm abdominal aortic aneurysm and bilateral common iliac artery aneurysms. Followup is recommended every 3 years. 3. Small cystocele. 4. Stable grade 2 anterolisthesis at L4-L5 due to pars defects. ABDOMINAL AORTIC ANEURYSM MANAGEMENT RECOMMENDATIONS: 2.6-2.9 cm: Follow-up every 5 years* 3.0-3.4 cm: Follow-up every 3 years. 3.5-3.9 cm: Follow-up every 1 year. 4.0-4.4 cm: Follow-up every 1 year. Recommend vascular consultation. 4.5-5.4 cm: Follow-up every 6 months. Recommend vascular consultation. Greater than or equal to 5.5 cm: Referral to vascular surgeon. *For abdominal aortas with maximum diameter of 2.6-2.9 cm meeting criteria for AAA (>50% of proximal normal segment). Reference: J Vasc Surg. 2009 Mar;50(4 Suppl):S2-49 Electronically authenticated by: ABRAHAN BERNSTEIN Date: 01/27/2024 20:31
--- NOTE | 2024-01-27 20:47 | ECG_ITS ---
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
[2024-01-27 21:22] LABS: Bilirubin Urine NEGATIVE (NEGATIVE); Blood Urine NEGATIVE (NEGATIVE); Clarity Urine CLEAR (CLEAR); Color Urine LT. YELLOW (YELLOW); Glucose Urine UA NEGATIVE (NEGATIVE); Ketones Urine NEGATIVE (NEGATIVE); Leukocyte Esterase Urine NEGATIVE (NEGATIVE); Nitrite Urine NEGATIVE (NEGATIVE); Protein Urine NEGATIVE (NEG/TRACE); Specific Gravity Urine <=1.005 (1.005-1.025); pH Urine 6.5 (5.0-9.0)
[2024-01-27 21:26] LABS: Urine Microscopic Indicated NO
--- OUTSIDE RECORDS SUMMARY | 2024-01-27 23:30 | XMS_ITS | CCD ---
Author Organization [facility] Care Team Providers Care Hand Developer Name Role Phone KERRI SMITH Referring Unavailable KERRI SMITH Primary Care Unavailable CHARLI PULIDO Attending Unavailable CHARLI PULIDO Admitting Unavailable MISC, DR FLAHERTY Admitting Unavailable SARAH, DR MANNING Primary Care Unavailable MISC, DR FLAHERTY Attending Unavailable MISC, DR FLAHERTY Consulting Unavailable JOE, CHARLI Consulting Unavailable BISHOPY, DR MANNING Attending Unavailable BISHOPY, DR MANNING Consulting Unavailable BISHOPY, DR MANNING Primary Care Unavailable BISHOPY, DR MANNING Admitting Unavailable JOECHARLI Polk Consulting Unavailable CHARLI PULIDO Admitting Unavailable CHARLI PULIDO Attending Unavailable SARAH, DR MANNING Primary Care Unavailable LISSA SPENCER Referring Unavailable ROHIT DELCID Referring Unavailable KATKOEDUARDO Referring Unavailable SAIDA LAI Admitting Unavailable SAIDA LAI Attending Unavailable LISSA SPENCER Attending Unavailable Kerri Smith Primary Care Physician [phone] Pasha BACH Attending Unavailable Kerri Smith Referring Unavailable Allergies Allergy Classification Reported Allergen(s) Allergy Type Date of Onset Reaction(s) Facility (1 source) No Known Medication Allergies; Translations: [No Known Medication Allergies] Propensity to adverse reactions (disorder) [facility] Repository Medications Current Medications Medication Drug Class(es) Dates Sig (Normalized) Sig (Original) apixaban 5 mg oral tablet (1 source) Factor Xa Inhibitor Start: 12-30-2023 take 1 tablet by mouth twice daily Eliquis 5 mg oral tablet 5 mg = 1 tab(s), Oral, BID, Refills(s) 0 Start Date: 12/30/23 Status: Ordered carvedilol 6.25 mg oral tablet (1 source) alpha-Adrenergic Steve, beta-Adrenergic Steve Start: 12-30-2023 take 1 tablet by mouth twice daily Coreg 6.25 mg Tab 6.25 mg = 1 tab(s), Oral, BID, Refills(s) 0 Start Date: 12/30/23 Status: Ordered 24 hr dilTIAZem hydrochloride 180 mg extended release oral capsule (1 source) Calcium Channel Steve Start: 12-30-2023 diltiazem CD 180 mg/24 hours Cap-ER 180 mg = 1 cap(s), Oral, Daily, Refills(s) 0 Start Date: 12/30/23 Status: Ordered doxepin hydrochloride 25 mg oral capsule (1 source) Tricyclic Antidepressant Start: 12-30-2023 take 2 capsules by mouth once daily at bedtime doxepin 25 mg Cap 50 mg = 2 cap(s), Oral, Once a day (at bedtime), Refills(s) 0 Start Date: 12/30/23 Status: Ordered irbesartan 300 mg oral tablet (1 source) Angiotensin 2 Receptor Steve Start: 12-30-2023 take 1 tablet by mouth once daily irbesartan 300 mg Tab 300 mg = 1 tab(s), Oral, Daily, Refills(s) 0 Start Date: 12/30/23 Status: Ordered levothyroxine sodium 0.05 mg oral tablet (1 source) l-Thyroxine Start: 12-30-2023 take 1 tablet by mouth once daily levothyroxine 50 mcg (0.05 mg) Tab 50 mcg = 1 tab(s), Oral, Daily, Refills(s) 0 Start Date: 12/30/23 Status: Ordered linaclotide 0.072 mg oral capsule (1 source) Guanylate Cyclase-C Agonist Start: 12-30-2023 take 1 capsule by mouth once daily Linzess 72 mcg oral capsule 72 mcg = 1 cap(s), Oral, Daily, Refills(s) 0 Start Date: 12/30/23 Status: Ordered omeprazole 40 mg delayed release oral capsule (1 source) Proton Pump Inhibitor Start: 12-30-2023 take 1 capsule by mouth once daily omeprazole 40 mg Cap-DR 40 mg = 1 cap(s), Oral, Daily, Refills(s) 0 Start Date: 12/30/23 Status: Ordered Problems Active Problems Problem Classification Problem Date Documented Da te Episodic/Chronic Anxiety disorders (1 source) Anxiety 12-30-2023 Chronic Cardiac dysrhythmias (6 sources) Unspecified atrial fibrillation; Translations: [Atrial fibrillation] Onset: 06-14-2021 Chronic Diabetes mellitus without complication (1 source) Diabetes mellitus 12-30-2023 Chronic Diseases of white blood cells (1 source) Leukocytosis Onset: 02-25-2017 12-30-2023 Chronic Disorders of lipid metabolism (1 source) Hyperlipidemia 12-30-2023 Chronic Diverticulosis and diverticulitis (2 sources) Diverticulitis of intestine, part unspecified, without perforation or abscess without bleeding; Translations: [Diverticulitis of intestine, part unspecified, without perforation or abscess without bleeding] Onset: 11-20-2023 Chronic Essential hypertension (2 sources) Essential (primary) hypertension; Translations: [Essential hypertension] Onset: 06-27-2021 12-30-2023 Chronic Nonmalignant breast conditions (1 source) Fibrocystic disease of breast 12-30-2023 Chronic Other gastrointestinal disorders (1 source) History of diverticulitis 12-30-2023 Episodic Other nutritional; endocrine; and metabolic disorders (1 source) Body mass index 40+ - severely obese 01-21-2024 Chronic Other nutritional; endocrine; and metabolic disorders (1 source) Obese class III 01-21-2024 Chronic Pancreatic disorders (not diabetes) (1 source) Pseudocyst of pancreas 12-30-2023 Episodic Residual codes; unclassified (1 source) Obstructive sleep apnea syndrome 12-30-2023 Chronic Residual codes; unclassified (1 source) Insomnia 12-30-2023 Episodic Spondylosis; intervertebral disc disorders; other back problems (1 source) Degeneration of lumbar intervertebral disc 12-30-2023 Chronic Thyroid disorders (2 sources) Hypothyroidism, unspecified; Translations: [Hypothyroidism] Onset: 06-27-2021 12-30-2023 Chronic Unclassified (4 sources) CONTACT W/AND (SUSP) EXPOS COVID-19; Translations: [CONTACT W/AND (SUSP) EXPOS COVID-19] Onset: 06-18-2021 Unclassified (2 sources) Other persistent atrial fibrillation; Translations: [Other persistent atrial fibrillation] Onset: 05-09-2022 Past or Other Problems Problem Classification Problem Date Documented Da te Episodic/Chronic Other aftercare (2 sources) Other mcfp (current) drug therapy; Translations: [Other mcfp (current) drug therapy] Onset: 06-18-2023 Episodic Other lower respiratory disease (1 source) Other forms of dyspnea; Translations: [OTHER FORMS OF DYSPNEA] Onset: 06-27-2021 Episodic Unclassified (1 source) CONTACT W/AND (SUSP) EXPOS COVID-19; Translations: [CONTACT W/AND (SUSP) EXPOS COVID-19] Onset: 03-07-2022 Results Test Name Value Interpretation Reference Range Facility Ambulatory Visit Summaryon 0 01-21-2024 Ambulatory Visit Summary Ambulatory Visit Summary JENNY WATT :1950 Visit Date:01/21/2024 Ambulatory Visit Instructions Your Care Team Attending Physician - ISREAL CARLSON, Pasha Mercado Primary Care Physician - Sarah CARLSON, Kerri Referring Physician - Kerri Smith MD This Is Your Medications List apixaban (Eliquis 5 mg oral tablet) carvedilol (Coreg 6.25 mg Tab) diltiazem (diltiazem CD 180 mg/24 hours Cap-ER) doxepin (doxepin 25 mg Cap) irbesartan (irbesartan 300 mg Tab) levothyroxine (levothyroxine 50 mcg (0.05 mg) Tab) linaclotide (Linzess 72 mcg oral capsule) omeprazole (omeprazole 40 mg Cap-DR) Procedures Performed Cardiac radiofrequency ablation using ultrasound (US) guidance, Cholecystectomy. Discharge Vitals Heart Rate (Peripheral) 72 Respiratory Rate 16 Blood Pressure 136/78 Height 170 cm Height 67 in Weight 129 kg Weight 283.8 lb BMI 44.64 Medications What How Much When Instructions Unchanged apixaban (Eliquis 5 mg oral tablet) 1 Tablets By Mouth 2 times a day Unchanged carvedilol (Coreg 6.25 mg Tab) 1 Tablets By Mouth 2 times a day Unchanged diltiazem (diltiazem CD 180 mg/ 24 hours Cap-ER) 1 Capsules By Mouth Every day Unchanged doxepin (doxepin 25 mg Cap) 2 Capsules By Mouth Once a day (at bedtime) Unchanged irbesartan (irbesartan 300 mg Tab) 1 Tablets By Mouth Every day Unchanged levothyroxine (levothyroxine 50 mcg (0.05 mg) Tab) 1 Tablets By Mouth Every day Unchanged linaclotide (Linzess 72 mcg oral capsule) 1 Capsules By Mouth Every day Unchanged omeprazole (omeprazole 40 mg Cap-DR) 1 Capsules By Mouth Every day Allergies No Known Allergies No Known Medication Allergies Problems Ongoing - Any problem that you are currently receiving treatment for. Anxiety Atrial fibrillation Atrial flutter BMI 40.0-44.9, adult Class 3 obesity Degeneration of lumbar intervertebral disc Diabetes mellitus Essential hypertension Fibrocystic disease of breast History of diverticulitis Hyperlipidemia Hypothyroidism Insomnia Leukocytosis Obstructive sleep apnea syndrome Pseudocyst of pancreas Patient Survey You may receive a survey via text or e-mail asking about your office visit. Please share your experience with us by completing your survey. We appreciate your feedback and thank you for choosing us for your care. [facility] Ambulatory Visit Summary Ambulatory Visit Summary JENNY WATT :1950 Visit Date:01/21/2024 Ambulatory Visit Instructions Your Care Team Attending Physician - ISREAL CARLSON, Pasha Mercado Primary Care Physician - Sarah CARLSON, Kerri Referring Physician - Kerri Smith MD This Is Your Medications List apixaban (Eliquis 5 mg oral tablet) carvedilol (Coreg 6.25 mg Tab) diltiazem (diltiazem CD 180 mg/24 hours Cap-ER) doxepin (doxepin 25 mg Cap) irbesartan (irbesartan 300 mg Tab) levothyroxine (levothyroxine 50 mcg (0.05 mg) Tab) linaclotide (Linzess 72 mcg oral capsule) omeprazole (omeprazole 40 mg Cap-DR) Procedures Performed Cardiac radiofrequency ablation using ultrasound (US) guidance, Cholecystectomy. Discharge Vitals Heart Rate (Peripheral) 72 Respiratory Rate 16 Blood Pressure 136/78 Height 170 cm Height 67 in Weight 129 kg Weight 283.8 lb BMI 44.64 Medications What How Much When Instructions Unchanged apixaban (Eliquis 5 mg oral tablet) 1 Tablets By Mouth 2 times a day Unchanged carvedilol (Coreg 6.25 mg Tab) 1 Tablets By Mouth 2 times a day Unchanged diltiazem (diltiazem CD 180 mg/ 24 hours Cap-ER) 1 Capsules By Mouth Every day Unchanged doxepin (doxepin 25 mg Cap) 2 Capsules By Mouth Once a day (at bedtime) Unchanged irbesartan (irbesartan 300 mg Tab) 1 Tablets By Mouth Every day Unchanged levothyroxine (levothyroxine 50 mcg (0.05 mg) Tab) 1 Tablets By Mouth Every day Unchanged linaclotide (Linzess 72 mcg oral capsule) 1 Capsules By Mouth Every day Unchanged omeprazole (omeprazole 40 mg Cap-DR) 1 Capsules By Mouth Every day Allergies No Known Allergies No Known Medication Allergies Problems Ongoing - Any problem that you are currently receiving treatment for. Anxiety Atrial fibrillation Atrial flutter BMI 40.0-44.9, adult Class 3 obesity Degeneration of lumbar intervertebral disc Diabetes mellitus Essential hypertension Fibrocystic disease of breast History of diverticulitis Hyperlipidemia Hypothyroidism Insomnia Leukocytosis Obstructive sleep apnea syndrome Pseudocyst of pancreas Patient Survey You may receive a survey via text or e-mail asking about your office visit. Please share your experience with us by completing your survey. We appreciate your feedback and thank you for choosing us for your care. Normal [facility] Physician Referralon 024 Physician Referral [phone] [id number] Normal [facility] BASIC METABOLIC PANELon Anion gap [Moles/Vol] 12 mmol/L Normal 7-20 [facility] Comment on above: Performed By: #### L [id number] #### [facility] ([facility]) [address] [place] [address] Calcium [Mass/Vol] 8.5 mg/dL Low 8.6-10.3 [facility] Comment on above: Performed By: #### L [id number] #### [facility] ([facility]) [address] [place] [address] Chloride [Moles/Vol] 101 mmol/L Normal 98-107 [facility] Comment on above: Performed By: #### L [id number] #### [facility] ([facility]) [address] [place] [address] CO2 [Moles/Vol] 26 mmol/L Normal 21-31 [facility] Comment on above: Performed By: #### L [id number] #### [facility] ([facility]) [address] [place] [address] Creatinine [Mass/Vol] 0.78 mg/dL Normal 0.60-1.20 [facility] Comment on above: Performed By: #### L [id number] #### [facility] ([facility]) [address] [place] [address] GLOMERULAR FILTRATION RATE ML/MIN/1.73 SQ M.PREDICTED 81.2 mL/min/1.73m*2 Normal >60.0 [facility] Comment on above: Result Comment: [facility]???s estimated glomerular filtration rate (eGFR) will [...] individuals. Performed By: #### L [id number] #### [facility] ([facility]) [address] [place] [address] Glucose [Mass/Vol] 91 mg/dL Normal 70-100 [facility] Comment on above: Performed By: #### L [id number] #### [facility] ([facility]) [address] [place] [address] Potassium [Moles/Vol] 3.9 mmol/L Normal 3.5-5.1 [facility] Comment on above: Performed By: #### L [id number] #### [facility] ([facility]) [address] [place] [address] Sodium [Moles/Vol] 135 mmol/L Low 136-145 [facility] Comment on above: Performed By: #### L [id number] #### [facility] ([facility]) [address] [place] [address] Urea nitrogen [Mass/Vol] 8 mg/dL Normal 7-25 [facility] Comment on above: Performed By: #### L [id number] #### [facility] ([facility]) [address] [place] [address] UREA NITROGEN/CREATININE (MASS RATIO) IN SER/PLAS 10.3 Normal [facility] Comment on above: Performed By: #### L [id number] #### [facility] ([facility]) [address] [place] [address] CBCon 11-22-2023 Erythrocyte distribution width (RBC) [Ratio] 15.9 % High 11.5-15.0 [facility] Comment on above: Performed By: #### L [id number] ####[facility] ([facility])[address] [place] [address] ERYTHROCYTE MEAN CORPUSCULAR HEMOGLOBIN CONCENTRATION (G/DL) BY AUTOMATED 31.3 g/dL Low 32.0-35.0 [facility] Comment on above: Performed By: #### L [id number] ####[facility] ([facility])[address] [place] [address] Hematocrit (Bld) [Volume fraction] 35.2 % Low 36.0-48.0 [facility] Comment on above: Performed By: #### L [id number] ####[facility] ([facility])[address] [place] [address] Hemoglobin (Bld) [Mass/Vol] 11.0 g/dL Low 12.0-15.0 [facility] Comment on above: Performed By: #### L [id number] ####[facility] ([facility])[address] [place] [address] MCH (RBC) [Entitic mass] 27.5 pg Normal 27.0-33.0 [facility] Comment on above: Performed By: #### L [id number] ####[facility] ([facility])[address] [place] [address] MCV (RBC) [Entitic vol] 88.0 fL Normal 82.0-98.0 [facility] Comment on above: Performed By: #### L [id number] ####[facility] ([facility])[address] [place] [address] PLATELETS (10*3/UL) IN BLOOD AUTOMATED COUNT 341 10*3/uL Normal 150-400 [facility] Comment on above: Performed By: #### L [id number] ####[facility] ([facility])[address] [place] [address] RBC (Bld) [#/Vol] 4.00 10*6/uL Normal 3.80-5.00 [facility] Comment on above: Performed By: #### L [id number] ####[facility] ([facility])[address] [place] [address] WBC (Bld) [#/Vol] 7.75 10*3/uL Normal 4.00-10.60 [facility] Comment on above: Performed By: #### L [id number] ####[facility] ([facility])[address] [place] [address] DSon 11-22-2023 DS Admission Admitted 11/20/2023 for [...] Medications These medications were sent to [facility] - [place], [place] - [address] [place] [address] [place] [address], [facility] [address] acetaminophen 500 mg tablet Activity Normal activity [...] history of a cholecystectomy who presents to [facility] as a direct transfer from [facility] with diverticulitis. Pt had been having [...] hgb 11.5, otherwise wnl. Upon arrival to [facility], pt was started on a CLD, IV [...] future appointments. Test Results Pending At Discharge [facility] 30on 11-21-2023 30 Daily Case Managemen t Update Multidisciplinary rounds have been completed. Barriers to Discharge: Management of diverticulitis; on full liquid diet and IV fluids. Plan to discharge home when medically ready. Diet: Dietary Orders (From admission, onward) Start Ordered 11/21/23 1208 Full Liquid Diet Diet effective now Question: Room Service? Answer: No 11/21/23 1207 11/20/23 1632 Dietary nutrition supplements Lunch; Liquacel; Gilliam; 2 packets; Oral Until discontinued Question Answer Comment Deliver with Lunch Select supplement: Liquacel flavor Gilliam Strength: 2 packets Route Oral 11/20/23 1631 11/20/23 1631 Dietary nutrition supplements TID; Resource Breeze; 8 oz; Oral Until discontinued Question Answer Comment Deliver with TID Select supplement: Resource Breeze Strength: 8 oz Route Oral 11/20/23 1631 Physician Expected Discharge Date: 11/23/2023 Discharge Delays: PT Six Click Score: 17 OT Six Click Score: PT Recommendations: OT Recommendations: New Consults: Normal [facility] BASIC METABOLIC PANELon 06-0 Anion gap [Moles/Vol] 11 mmol/L Normal 7-20 [facility] Comment on above: Performed By: #### L [id number] #### [facility] ([facility]) [address] [place] [address] Calcium [Mass/Vol] 8.6 mg/dL Normal 8.6-10.3 [facility] Comment on above: Performed By: #### L [id number] #### [facility] ([facility]) [address] [place] [address] Chloride [Moles/Vol] 102 mmol/L Normal 98-107 [facility] Comment on above: Performed By: #### L [id number] #### [facility] ([facility]) [address] [place] [address] CO2 [Moles/Vol] 26 mmol/L Normal 21-31 [facility] Comment on above: Performed By: #### L [id number] #### [facility] ([facility]) [address] [place] [address] Creatinine [Mass/Vol] 0.75 mg/dL Normal 0.60-1.20 [facility] Comment on above: Performed By: #### L [id number] #### [facility] ([facility]) [address] [place] [address] GLOMERULAR FILTRATION RATE ML/MIN/1.73 SQ M.PREDICTED 85.1 mL/min/1.73m*2 Normal >60.0 [facility] Comment on above: Result Comment: [facility]???s estimated glomerular filtration rate (eGFR) will [...] individuals. Performed By: #### L [id number] #### [facility] ([facility]) [address] [place] [address] Glucose [Mass/Vol] 93 mg/dL Normal 70-100 [facility] Comment on above: Performed By: #### L [id number] #### [facility] ([facility]) [address] [place] [address] Potassium [Moles/Vol] 3.9 mmol/L Normal 3.5-5.1 [facility] Comment on above: Performed By: #### L [id number] #### [facility] ([facility]) [address] [place] [address] Sodium [Moles/Vol] 135 mmol/L Low 136-145 [facility] Comment on above: Performed By: #### L [id number] #### [facility] ([facility]) [address] [place] [address] Urea nitrogen [Mass/Vol] 8 mg/dL Normal 7-25 [facility] Comment on above: Performed By: #### L [id number] #### [facility] ([facility]) [address] [place] [address] UREA NITROGEN/CREATININE (MASS RATIO) IN SER/PLAS 10.7 Normal [facility] Comment on above: Performed By: #### L [id number] #### [facility] ([facility]) [address] [place] [address] CBCon 11-21-2023 Erythrocyte distribution width (RBC) [Ratio] 15.6 % High 11.5-15.0 [facility] Comment on above: Performed By: #### L [id number] #### [facility] ([facility]) [address] [place] [address] ERYTHROCYTE MEAN CORPUSCULAR HEMOGLOBIN CONCENTRATION (G/DL) BY AUTOMATED 31.7 g/dL Low 32.0-35.0 [facility] Comment on above: Performed By: #### L [id number] #### [facility] ([facility]) [address] [place] [address] Hematocrit (Bld) [Volume fraction] 34.7 % Low 36.0-48.0 [facility] Comment on above: Performed By: #### L [id number] #### [facility] ([facility]) [address] [place] [address] Hemoglobin (Bld) [Mass/Vol] 11.0 g/dL Low 12.0-15.0 [facility] Comment on above: Performed By: #### L [id number] #### [facility] ([facility]) [address] [place] [address] MCH (RBC) [Entitic mass] 27.4 pg Normal 27.0-33.0 [facility] Comment on above: Performed By: #### L [id number] #### [facility] ([facility]) [address] [place] [address] MCV (RBC) [Entitic vol] 86.5 fL Normal 82.0-98.0 [facility] Comment on above: Performed By: #### L [id number] #### [facility] ([facility]) [address] [place] [address] PLATELETS (10*3/UL) IN BLOOD AUTOMATED COUNT 349 10*3/uL Normal 150-400 [facility] Comment on above: Performed By: #### L [id number] #### [facility] ([facility]) [address] [place] [address] RBC (Bld) [#/Vol] 4.01 10*6/uL Normal 3.80-5.00 [facility] Comment on above: Performed By: #### L [id number] #### [facility] ([facility]) [address] [place] [address] WBC (Bld) [#/Vol] 7.22 10*3/uL Normal 4.00-10.60 [facility] Comment on above: Performed By: #### L [id number] #### [facility] ([facility]) [address] [place] [address] 3011-20-2023 30 Problem: Pain Goal: LTG-Verbalize decrease in [...] these barriers include . Normal [facility] 30 The patient is Moderately Stable [...] status, and pain status Normal [facility] CBCon 11-20-2023 Erythrocyte distribution width (RBC) [Ratio] 15.8 % High 11.5-15.0 [facility] Comment on above: Performed By: #### L [id number] #### [facility] ([facility]) [address] [place] [address] ERYTHROCYTE MEAN CORPUSCULAR HEMOGLOBIN CONCENTRATION (G/DL) BY AUTOMATED 31.9 g/dL Low 32.0-35.0 [facility] Comment on above: Performed By: #### L [id number] #### [facility] ([facility]) [address] [place] [address] Hematocrit (Bld) [Volume fraction] 36.1 % Normal 36.0-48.0 [facility] Comment on above: Performed By: #### L [id number] #### [facility] ([facility]) [address] [place] [address] Hemoglobin (Bld) [Mass/Vol] 11.5 g/dL Low 12.0-15.0 [facility] Comment on above: Performed By: #### L [id number] #### [facility] ([facility]) [address] [place] [address] MCH (RBC) [Entitic mass] 27.4 pg Normal 27.0-33.0 [facility] Comment on above: Performed By: #### L [id number] #### [facility] ([facility]) [address] [place] [address] MCV (RBC) [Entitic vol] 86.2 fL Normal 82.0-98.0 [facility] Comment on above: Performed By: #### L [id number] #### [facility] ([facility]) [address] [place] [address] PLATELETS (10*3/UL) IN BLOOD AUTOMATED COUNT 388 10*3/uL Normal 150-400 [facility] Comment on above: Performed By: #### L [id number] #### [facility] ([facility]) [address] [place] [address] RBC (Bld) [#/Vol] 4.19 10*6/uL Normal 3.80-5.00 [facility] Comment on above: Performed By: #### L [id number] #### [facility] ([facility]) [address] [place] [address] WBC (Bld) [#/Vol] 9.02 10*3/uL Normal 4.00-10.60 [facility] Comment on above: Performed By: #### L [id number] #### [facility] ([facility]) [address] [place] [address] COMPREHENSIVE METABOLIC PANE Nacho 11-20-2023 Albumin [Mass/Vol] 3.8 g/dL Normal 3.5-5.7 [facility] Comment on above: Performed By: #### L [id number] ####[facility] ([facility])[address] [place] [address] ALP [Catalytic activity/Vol] 118 U/L High 34-104 [facility] Comment on above: Performed By: #### L [id number] ####[facility] ([facility])[address] [place] [address] ALT [Catalytic activity/Vol] 19 U/L Normal 7-52 [facility] Comment on above: Performed By: #### L [id number] ####[facility] ([facility])[address] [place] [address] Anion gap [Moles/Vol] 9 mmol/L Normal 7-20 [facility] Comment on above: Performed By: #### L [id number] ####[facility] ([facility])[address] [place], [place] [address] AST [Catalytic activity/Vol] 28 U/L Normal 13-39 [facility] Comment on above: Performed By: #### L [id number] ####[facility] ([facility])[address] [place], [place] [address] Bilirubin [Mass/Vol] 0.6 mg/dL Normal 0.3-1.0 [facility] Comment on above: Performed By: #### L [id number] ####[facility] ([facility])[address] [place] [address] Calcium [Mass/Vol] 8.9 mg/dL Normal 8.6-10.3 [facility] Comment on above: Performed By: #### L [id number] ####[facility] ([facility])[address] [place] [address] Chloride [Moles/Vol] 101 mmol/L Normal 98-107 [facility] Comment on above: Performed By: #### L [id number] ####[facility] ([facility])[address] [place] [address] CO2 [Moles/Vol] 29 mmol/L Normal 21-31 [facility] Comment on above: Performed By: #### L [id number] ####[facility] ([facility])[address] [place] [address] Creatinine [Mass/Vol] 0.75 mg/dL Normal 0.60-1.20 [facility] Comment on above: Performed By: #### L [id number] ####[facility] ([facility])[address] [place] [address] GLOMERULAR FILTRATION RATE ML/MIN/1.73 SQ M.PREDICTED 85.1 mL/min/1.73m*2 Normal >60.0 [facility] Comment on above: Result Comment: The [facility]???s estimated glomerular filtration rate (eGFR) will [...] of individuals. Performed By: #### L [id number] ####[facility] ([facility])[address] [place] [address] Glucose [Mass/Vol] 116 mg/dL High 70-100 [facility] Comment on above: Performed By: #### L [id number] ####[facility] ([facility])[address] [place] [address] Potassium [Moles/Vol] 4.2 mmol/L Normal 3.5-5.1 [facility] Comment on above: Performed By: #### L [id number] ####[facility] [place] [address] Protein [Mass/Vol] 7.0 g/dL Normal 6.0-8.3 [facility] Comment on above: Performed By: #### L [id number] ####[facility] ([facility] [place] [address] Sodium [Moles/Vol] 135 mmol/L Low 136-145 [facility] Comment on above: Performed By: #### L [id number] ####[facility] ([facility] [place] [address] Urea nitrogen [Mass/Vol] 12 mg/dL Normal 7-25 [facility] Comment on above: Performed By: #### L [id number] ####[facility] ([facility])[address] [place] [address] UREA NITROGEN/CREATININE (MASS RATIO) IN SER/PLAS 16.0 Normal [facility] Comment on above: Performed By: #### L [id number] ####[facility] ([facility])[address] [place] [address] CONSULTon 11-20-2023 CONSULT Clinical Nutrition Assessment: Name: Jenny Watt Room: [address] [place] [address] Date: 1950 Date of Visit: 11/20/23 Admission [...] Last BM 11/18; c/o N/V/D Appetite: good travel pta -> now on CLD Cognition: A/O x 4 Geriatric feeding skills: Pt reported that she prepares most of her meals at home, will go out 1x/week for dinner; lives at home with daughter Skin Integrity: No documented skin issues Other factors: direct admit from [facility] for diverticulitis -> from EMR, Pt went into ER ([facility]) for c/o L sided abdominal pain. [...] (11/20/2023). Pt reported usual good po intake travel pta, although reported that she has been eating [...] ideal body weight (59.1 kg) Calorie needs: 3372-1564 kcals/day based on Equation: 25-30 kcal/kg Protein [...] Hand Grasp: Moderate L Hand Grasp: Moderate (Indoor Plant Technician strength not assessed by RD) Patient at risk for malnutrition according to hospital criteria, but does not meet the clinical characteristics per the Academy of Nutrition and Dietetics, and the [place] [employer] of Enteral and Parenteral Nutrition to [...] (magnesium, phosphorus, BMP) Contact the dietitian via [employer] chat 8A-4P Saturday through Saturday or call extension [phone]. For weekends & holidays, the dietitian can be reached via pager [phone] from 9A-3P. Unable to respond to [employer] chat messages on Saturday & . Normal [facility] HPon 11-20-2023 HP --- Attestation signed by Saida Lai MD at 11/21/2023 8:37 AM Attending Physician Statement I have discussed the case, including pertinent history and exam findings with Dr. Tanner, chairman president and chief executive officer and have personally seen the patient. I agree with the assessment, plan and orders as documented. [phone] pager [phone] phone [facility] HISTORY & PHYSICAL Reason for Admission: diverticulitis History of Present Illness: Jenny Watt is a 73 y.o. female with PMH of atrial fibrillation s/p ablation on amiodarone and eliquis, HTN, hypothyroidism, and sleep apnea and past surgical history of a cholecystectomy who presents to [facility] as a direct transfer from [facility] with diverticulitis. Pt had been having [...] (more content not included)... Normal [facility] LACTIC ACID, PLASMAon 2023 LACTATE (MMOL/L) IN SER/PLAS 1.2 mmol/L Normal 0.5-2.2 [facility] Comment on above: Performed By: #### L [id number] ####[facility] ([facility])[address] [place] [address] NURSNOTEon 11-20-2023 NURSNOTE Bedside reporting do ne, rosenda Atkinson RN and Maia RN No complaints at this time Normal [facility] NURSNOTE Pt sits up at side o f bed, no c/o of pain, or SOB at this time Telemetry cont. On pt IV intact, no redness noted Pulse ox--98% on room air Pt. Up walking around in room for 10 min at 1830 pm [facility] NURSNOTE Pt up walking around in room, tolerates well , with walker. [facility] RIYA Lai notified th at we need admission orders. Notified via secure [employer] chat. [facility] NURSNOTE Pt arrived as a dire ct admission from [facility], no c/o of pain or SOB at this time Assessment completed Telemetry started on pt. Bed alarm on [facility] PHOSPHORUSon 11-20-2023 Magnesium [Mass/Vol] 2.5 mg/dL Normal 1.9-2.7 [facility] Comment on above: Performed By: #### L [id number] #### [facility] ([facility]) [address] [place] [address] Performed By: #### L [id number] #### [facility] ([facility]) [address] [place] [address] PROTIME-INRon 11-20-2023 INR IN PPP BY COAGULATION ASSAY 1.27 High 0.90-1.10 [facility] Comment on above: Result Comment: ACCC [...] 1995;[id number]. Performed By: #### L [id number] #### [facility] (ALL) [address] [place] [address] PROTHROMBIN TIME (PT) IN PPP BY COAGULATION ASSAY 15.8 Seconds High 12.3-14.8 [facility] Comment on above: Performed By: #### L [id number] #### [facility] ([facility]) [address] [place] [address] 36on 08-01-2023 36 Regarding echo performed on 06/27/2023: Echo is stable per Lissa Spencer CNP. I called patient and made her aware. She asked about her lab work. I told her we didn't have a copy of it in her chart. Labs were then obtained from [facility] portal and uploaded into her social media marketer for Lissa's review. I told her I'd call her back if he didn't like the results. She thanked me and verbalized understanding. Normal [facility] Orders Onlyon 06-25-2023 Orders Only [id number] JustaGavi daojosie Magaña 1950 Date Provider Department Center 06/25/2023 CRISTIANE MORALES CRYSTAL Preciado Family History Problem Relation Age of Onset Heart attack Father Atrial fibrillation Father Atrial fibrillation Sister Family Status - Relation Status Age at Father Sister Normal [facility] Office Visiton 06-18-2023 Follow-up visit [id number] Jenny Watt 1950 Date Provider Department Center 06/18/2023 [facility] Family History Problem Relation Age of Onset Heart attack Father Atrial fibrillation Father Atrial fibrillation Sister Family Status - Relation Status Age at Father Sister Level of Service:[address] [place] OFFICE/OUTPATIENT ESTABLISHED MOD MDM 30 MIN Normal [facility] Orders Onlyon 02-20-2023 Orders Only [id number] SherrieGaviJenny A 1950 F Date Provider Department Center 02/20/2023 VALENTE LYNN CRYSTAL [facility] Family History Problem Relation Age of Onset Heart attack Father Atrial fibrillation Father Atrial fibrillation Sister Family Status - Relation Status Age at Father Sister [facility] 36on 12-11-2022 36 Patient called back and I made her aware. Lab results faxed to PCP. [facility] 36on 12-10-2022 36 Please let her know her CXR was normal. Her labs showed her kidney function, liver function and blood counts were all normal. Her bad cholesterol levels were above goal. She is at 119, would like for her to be less than 100 for stroke and CO prevention. Recommend heart healthy diet such as the mediterranean diet and trying to implement some form of exercising. Her thyroid function is a little elevated but better since her last labs we have on file from 2019. Please make sure she follows up with her PCP for her thyroid management. Continue with follow-up amio testing q6 months. Thank you! [facility] Telephoneon 12-10-2022 Telephone [id number] Jenny Watt 1950 F Date Provider Department Center 12/10/[address] Family History Problem Relation Age of Onset Heart attack Father Atrial fibrillation Father Atrial fibrillation Sister Family Status - Relation Status Age at Father Sister [facility] Covid-19 PCR (CVDTBH)on 02-16 SARS-CoV-2 (COVID-19) RNA SP+probe Ql (Unsp spec) Not detected Normal NOT DETECTED The [facility] Comment on above: Result Comment: When [...] for this test is supported by the [employer] Fireman of Health and Human Service's declaration that [...] used). Performed By: #### C VDTB #### [facility] [address] [address] [address] Maik Singleton BASIC METABOLIC PANELon 07-19 Calcium [Mass/Vol] 8.1 mg/dL Low 8.6-10.3 [facility] Comment on above: Order Comment: No: D o not add to previous draw Performed By: #### 1 0, 74379 #### [facility] [address] [place] [address], [place] Chloride [Moles/Vol] 99 mmol/L Normal 98-107 [facility] Comment on above: Order Comment: No: D o not add to previous draw Performed By: #### 1 69, 37291 #### [facility] [address] [place] [address], [place] CO2 [Moles/Vol] 27 mmol/L Normal 21-31 [facility] Comment on above: Order Comment: No: D o not add to previous draw Performed By: #### 1 69, 57963 #### [facility] [address] [place] [address], [place] Creatinine [Mass/Vol] 0.82 mg/dL Normal 0.60-1.20 [facility] Comment on above: Order Comment: No: D o not add to previous draw Performed By: #### 1 69, 41941 #### [facility] [address] [place] [address], [place] GFR/1.73 sq M.predicted among blacks MDRD (S/P/Bld) [Vol rate/Area] mL/min/{1.73_m2} Normal >60 [facility] Comment on above: Order Comment: No: D o not add to previous draw Performed By: #### 1 69, 90543 #### [facility] [address] [place] [address], [facility] GFR/1.73 sq M.predicted among non-blacks MDRD (S/P/Bld) [Vol rate/Area] mL/min/{1.73_m2} Normal >60 [facility] Comment on above: Order Comment: No: D o not add to previous draw Performed By: #### 1 69, 11209 #### [facility] [address] [place] [address], [facility] Glucose [Mass/Vol] 109 mg/dL High 70-100 The [facility] Comment on above: Order Comment: No: D o not add to previous draw Performed By: #### 1 69, 45710 #### [facility] [address] [place] [address], [facility] Potassium [Moles/Vol] 4.0 mmol/L Normal 3.5-5.1 [facility] Comment on above: Order Comment: No: D o not add to previous draw Performed By: #### 1 69, 81763 #### [facility] [address] [place] [address], [facility] Sodium [Moles/Vol] 134 mmol/L Low 136-145 The [facility] Comment on above: Order Comment: No: D o not add to previous draw Performed By: #### 1 69, 92179 #### [facility] [address] [place] [address], [facility] Urea nitrogen [Mass/Vol] 12 mg/dL Normal 7-25 [facility] Comment on above: Order Comment: No: D o not add to previous draw Performed By: #### 1 69, 51818 #### [facility] [address] [place] [address], [facility] CBC COMPLETE BLOOD COUNTon 0 2- Erythrocyte distribution width (RBC) [Ratio] 15.5 % High 11.5-15.0 [facility] Comment on above: Order Comment: No: D o not add to previous draw Performed By: #### 5 0608 #### [facility] [address] [place] [id number], [facility] Hematocrit (Bld) [Volume fraction] 36.9 % Normal 36.0-45.0 [facility] Comment on above: Order Comment: No: D o not add to previous draw Performed By: #### 5 0608 #### [facility] [address] [address], [facility] Hemoglobin (Bld) [Mass/Vol] 11.5 g/dL Low 12.0-15.0 The [facility] Comment on above: Order Comment: No: D o not add to previous draw Performed By: #### 5 0608 #### [facility] [address] [place] [address], [facility] MCH (RBC) [Entitic mass] 27.1 pg Normal 27.0-33.0 [facility] Comment on above: Order Comment: No: D o not add to previous draw Performed By: #### 5 0608 #### [facility] [address] [facility] [address], [facility] MCHC (RBC) [Mass/Vol] 31.2 g/dL Low 32.0-35.0 The [facility] Comment on above: Order Comment: No: D o not add to previous draw Performed By: #### 5 0608 #### [facility] [address] [facility] [address], [facility] MCV (RBC) [Entitic vol] 87.0 fL Normal 82.0-98.0 The [facility] Comment on above: Order Comment: No: D o not add to previous draw Performed By: #### 5 0608 #### [facility] [address] [place] [address], [facility] Nucleated RBC/100 WBC (Bld) [Ratio] 0 % Normal 0-0 [facility] Comment on above: Order Comment: No: D o not add to previous draw Performed By: #### 5 0608 #### [facility] [address] [place] [address], [facility] PLAT CNT 258 10*3/uL Normal 150-400 The [facility] Comment on above: Order Comment: No: D o not add to previous draw Performed By: #### 5 0608 #### [facility] [address] [place] [address], [facility] RBC (Bld) [#/Vol] 4.24 10*6/uL Normal 3.80-5.00 The [facility] Comment on above: Order Comment: No: D o not add to previous draw Performed By: #### 5 0608 #### [facility] [address] [place] [address], [facility] WBC (Bld) [#/Vol] 10.20 10*3/uL Normal 4.00-10.60 The [facility] Comment on above: Order Comment: No: D o not add to previous draw Performed By: #### 5 0608 #### [facility] [address] [place] [address], [facility] MAGNESIUM BLOODon 08-10-2021 Magnesium [Mass/Vol] 2.2 mg/dL Normal 1.9-2.7 The [facility] Comment on above: Order Comment: No: D o not add to previous draw Performed By: #### 1 0070, 38312 #### [facility] [address] [place] [address], [facility] APTTon 08-09-2021 aPTT Coag (Bld) [Time] 26.9 s Normal 25.0-35.0 The [facility] Comment on above: Result Comment: ALL [...] THIS PURPOSE. Performed By: #### 5 6101, 89259 #### [facility] [address] [place] [address], [facility] CBC W/DIFFon 08-09-2021 ABS IMM GRANS 0.0 10*3/uL Normal 0.0-0.2 The [facility] Comment on above: Performed By: #### 5 0103 #### [facility] [address] [facility] [address], [facility] ABS NEUTROPHILS 5.1 10*3/uL Normal 1.6-7.[address] [facility] Comment on above: Performed By: #### 5 0103 #### [facility] [address] [facility] [place] [address], [facility] Basophils (Bld) [#/Vol] 0.0 10*3/uL Normal 0.0-0.2 The [facility] Comment on above: Performed By: #### 5 3 #### [facility] [address] [facility] [address], [facility] Basophils/100 WBC (Bld) 0.4 % Normal 0.0-1.0 The [facility] Comment on above: Performed By: #### 5 3 #### [facility] [address] [facility] [place] [address], [facility] Eosinophils (Bld) [#/Vol] 0.2 10*3/uL Normal 0.0-0.5 The [facility] Comment on above: Performed By: #### 5 3 #### [facility] [address] [facility] [address], [facility] Eosinophils/100 WBC (Bld) 2.3 % Normal 0.0-6.0 The [facility] Comment on above: Performed By: #### 5 3 #### [facility] [address] [facility] [place] [address], [facility] Erythrocyte distribution width (RBC) [Ratio] 15.3 % High 11.5-15.0 The [facility] Comment on above: Performed By: #### 5 0103 #### [facility] [address] [place] [address], [facility] Hematocrit (Bld) [Volume fraction] 37.4 % Normal 36.0-45.0 The [facility] Comment on above: Performed By: #### 5 0103 #### [facility] [address] [facility] [place] [address], [facility] Hemoglobin (Bld) [Mass/Vol] 11.5 g/dL Low 12.0-15.0 The [facility] Comment on above: Performed By: #### 5 0103 #### [facility] [address] [facility] [place] [address], [facility] IMMATURE GRANS 0.3 % Normal 0.0-1.0 The [facility] Comment on above: Performed By: #### 5 0103 #### [facility] [address] [facility] [place] [address], [facility] Lymphocytes (Bld) [#/Vol] 1.1 10*3/uL Low 1.2-4.0 The [facility] Comment on above: Performed By: #### 5 0103 #### [facility] [address] [facility] [place] [address], [facility] Lymphocytes/100 WBC (Bld) 16.1 % Low 20.0-45.0 The [facility] Comment on above: Performed By: #### 5 0103 #### [facility] [address] [facility] [address], [facility] MCH (RBC) [Entitic mass] 26.9 pg Low 27.0-33.0 The [facility] Comment on above: Performed By: #### 5 3 #### [facility] [address] [place] [id number], [facility] MCHC (RBC) [Mass/Vol] 30.7 g/dL Low 32.0-35.0 The [facility] Comment on above: Performed By: #### 5 0103 #### [facility] [address] [facility] [address], [facility] MCV (RBC) [Entitic vol] 87.4 fL Normal 82.0-98.0 The [facility] Comment on above: Performed By: #### 5 0103 #### [facility] [address] [facility] [place] [address], [facility] Monocytes (Bld) [#/Vol] 0.6 10*3/uL Normal 0.1-1.0 The [facility] Comment on above: Performed By: #### 5 0103 #### [facility] [address] [facility] [address], [facility] MONOS 8.8 % Normal 5.0-12.0 The [facility] Comment on above: Performed By: #### 5 0103 #### [facility] [address] [facility] [address], [facility] Neutrophils/100 WBC (Bld) 72.1 % High 40.0-72.0 The [facility] Comment on above: Performed By: #### 5 0103 #### [facility] [address] [facility] [address], [facility] Nucleated RBC/100 WBC (Bld) [Ratio] 0 % Normal 0-0 The [facility] Comment on above: Performed By: #### 5 0103 #### [facility] [address] [address], [facility] PLAT CNT 271 10*3/uL Normal 150-400 The [facility] Comment on above: Performed By: #### 5 3 #### [facility] [address] [place] [address], [facility] RBC (Bld) [#/Vol] 4.28 10*6/uL Normal 3.80-5.00 The [facility] Comment on above: Performed By: #### 5 0103 #### [facility] [address] [place] [address], [facility] WBC (Bld) [#/Vol] 7.02 10*3/uL Normal 4.00-10.60 The [facility] Comment on above: Performed By: #### 5 0103 #### [facility] [address] [place] [address], [facility] COMP METABOLIC PANELon 08-09 Albumin [Mass/Vol] 3.8 g/dL Normal 3.5-5.7 The [facility] Comment on above: Performed By: #### 0 0121 #### [facility] [address] [place] [address], [facility] ALKALINE PHOSPH 140 IU/L High 34-104 [facility] Comment on above: Performed By: #### 0 0121 #### [facility] [address] [place] [address], [facility] ALT [Catalytic activity/Vol] 13 U/L Normal 7-52 [facility] Comment on above: Performed By: #### 0 0121 #### [facility] [address] [place] [address], [facility] AST [Catalytic activity/Vol] 17 U/L Normal 13-39 [facility] Comment on above: Performed By: #### 0 0121 #### [facility] [address] [place] [address], [facility] Bilirubin [Mass/Vol] 0.5 mg/dL Normal 0.3-1.0 The [facility] Comment on above: Performed By: #### 0 0121 #### [facility] [address] [place] [address], [facility] Calcium [Mass/Vol] 8.7 mg/dL Normal 8.6-10.3 The [facility] Comment on above: Performed By: #### 0 0121 #### [facility] [address] [place] [address], [place] Chloride [Moles/Vol] 104 mmol/L Normal 98-107 [facility] Comment on above: Performed By: #### 0 0121 #### [facility] [address] [place] [address], [place] CO2 [Moles/Vol] 28 mmol/L Normal 21-31 [facility] Comment on above: Performed By: #### 0 0121 #### [facility] [address] [place] [address], [place] Creatinine [Mass/Vol] 0.74 mg/dL Normal 0.60-1.20 The [facility] Comment on above: Performed By: #### 0 0121 #### [facility] [address] [place] [address], [place] GFR/1.73 sq M.predicted among blacks MDRD (S/P/Bld) [Vol rate/Area] mL/min/{1.73_m2} Normal >60 The [facility] Comment on above: Performed By: #### 0 0121 #### [facility] [address] [place] [address], [place] GFR/1.73 sq M.predicted among non-blacks MDRD (S/P/Bld) [Vol rate/Area] mL/min/{1.73_m2} Normal >60 The [facility] Comment on above: Performed By: #### 0 0121 #### [facility] [address] [place] [address], [place] Glucose [Mass/Vol] 116 mg/dL High 70-100 [facility] Comment on above: Performed By: #### 0 0121 #### [facility] [address] [place] [address], [place] Potassium [Moles/Vol] 3.9 mmol/L Normal 3.5-5.1 The [facility] Comment on above: Performed By: #### 0 0121 #### [facility] [address] Protein [Mass/Vol] 6.4 g/dL Normal 6.0-8.3 The [facility] Comment on above: Performed By: #### 0 0121 #### [facility] [address] Sodium [Moles/Vol] 138 mmol/L Normal 136-145 The [facility] Comment on above: Performed By: #### 0 0121 #### [facility] [address] Urea nitrogen [Mass/Vol] 10 mg/dL Normal 7-25 The [facility] Comment on above: Performed By: #### 0 0121 #### [facility] [address] Cardiovascular Lab Reporton 08-09-2021 Cardiovascular Lab Report [facility] Patient Name: Jenny Watt [facility] MR #: [id number] Physician: Charli Pulido MD Department of Service Date: 08/09/2021 Medicine Birthdate: 1950 Division of Room #: 3CD 660481 Cardiology Adult Cardiovascular Services [place] [address] Cardiovascular Laboratory Report ATRIAL FIBRILLATION ABLATION PROCEDURE [...] in Afib. Esophagus was mapped using the LivemapUND 3D mapping software with quadripolar catheter and [...] content not included)... Normal The [facility] POC GLUCOSE LABon 08-09-2021 Glucose [Mass/Vol] 107 mg/dL High 70-100 [facility] Comment on above: Performed By: #### 8 [id number] #### [facility] [address] PROTHROMBIN TIMEon 2 INR Coag (PPP) [Relative time] 1.01 {INR} Normal 0.91-1.16 The [facility] Comment on above: Result Comment: ACCC [...] CHEST 1995;108:231S-246S. Performed By: #### 5 6101, [id number] #### [address] PT Coag (PPP) [Time] 13.3 s Normal 12.3-14.8 The [facility] Comment on above: Result Comment: ALL RESULTS MUST BE INTERPRETED WITH RESPECT TO BLOOD DRAWING ARTIFACT OR DILUTION ERROR OF ANTICOAGULANT AT THE TIME OF SAMPLING. Performed By: #### 5 6101, [address]13[address] #### [address] CTA CHESTon 08-08-2021 CTA CHEST [facility] Department of Radiology [address] [place] [id number] ===== Patient Name: JENNY WATT : [...] examination. Electronically signed: Audrey Umana. Transcribed by: [email or web address], User Resident: Electronically Signed by: AUDREY UMANA @ 08/08/2021 03:05 PM Normal The [facility] Comment on above: Order Comment: , Gavin b Ablation 08/09/21 Covid-19 PCR (CVDTB)on 05-18 SARS-CoV-2 (COVID-19) RNA SP+probe Ql (Unsp spec) Not detected Normal NOT DETECTED The [facility] Comment on above: Result Comment: This test is not yet approved or cleared by the [place] FDA. When there are no FDA-approved or cleared tests available, and other criteria are met, FDA can make tests available under an emergency access mechanism called an Emergency Use Authorization (EUA). The EUA for this test is supported by the [place] of Health and Human Service's (HHS's) declaration [...] SARS-CoV-2. Performed By: #### C TB #### [facility] Laboratory [address] [place] [address] Dr. Maik Singleton Vital Signs Date Time Vital Sign Value Performing Clinician Gustabo burris 01-21-2024 14:18-0400 Blood Pressure Location Pasha ISREAL [facility] 01-21-2024 14:18-0400 Diastolic blood pressure 78 mm[Hg] Pasha PETERL [facility] 01-21-2024 14:18-0400 Heart rate 72 /min Pasha PETERL [facility] 01-21-2024 14:18-0400 Respiratory rate 16 /min Pasha BRITTANIL [facility] 01-21-2024 14:18-0400 Systolic blood pressure 136 mm[Hg] Pasha BACH [facility] Encounters Encounter Date Encounter Type Care Provider Facility Start: 01-21-2024 End: 01-21-2024 ambulatory Pasha BACH Facility:[facility] Start: 01-21-2024 End: 01-21-2024 Patient encounter procedure Pasha BACH [facility] Start: 11-26-2023 ambulatory Pasha BACH Facility:[facility] Start: 11-21-2023 Evaluation and manag ement of inpatient LISSA [facility] Start: 11-20-2023 Evaluation and manag ement of inpatient ROHIT [facility] Start: 11-20-2023 End: 11-22-2023 Evaluation and management of inpatient EDUARDO KATKO [facility] Start: 06-18-2023 End: 06-18-2023 ambulatory LISSA SPENCER [facility] Start: 03-07-2022 End: 03-07-[address] KERRI SMITH Facility:[facility] Start: 08-09-2021 End: 08-10-2021 ambulatory KERRI SMITH Facility:[facility] Start: 06-18-2021 Encounter for preprocedural laboratory examination CHARLI PULIDO [facility] [place] Start: 06-14-2021 End: 06-14-[address] DOCTOR DIXON Facility:[facility] Start: 06-12-2021 End: 06-12-2021 ambulatory CHARLI JOE Facility:[facility] Start: 06-12-2021 End: 06-12-2021 Encounter for preprocedural laboratory examination CHARLI PULIDO Facility:[facility] Procedures Date Procedure Procedure Detail Performing Clinician Cardiac radiofrequen cy ablation using ultrasound guidance Pasha BACH Cholecystectomy Pasha BACH Immunizations Immunization Date Immunization Notes Care Provider Fa cility 04-11-2022 SARS-CoV-2 mRNA (ynwtldeghcq-nhub-llgom se) vaccine Pasha BACH [facility] Comment on above: Result Comment: 2023: [id number] 02-14-2022 SARS-CoV-2 mRNA (rbemmkcypzb-rljc-ykart se) vaccine Pasha BACH [facility] Comment on above: Result Comment: 2023: [id number] Payers Date Payer Category Payer Medicare [id number] 1959 Private Health Insurance [id number] 1950 Unknown [id number] [id number] 1950 Unknown [id number] [id number] [id number] 1950 Unknown [id number] [id number] 1950 Unknown [id number] [id number] [id number] 1950 Unknown [id number] [id number] Social History Date Type Detail Facility Start: 01-21-2024 Tobacco smoking status Ex-smoker (fi nding) [facility] Tobacco smoking status Never [facility] Sex Assigned At Female [facility] Functional Status Date Assessment Result Facility 01-21-2024 Functional Status N/A [facility] Clinical Notes 06-14-2021 to 11-22-2023 Note Date & Type Note Facility 11-22-2023 Note [facility] General Surgery DAILY PROGRESS NOTE Subjective Observed [...] MD PGY-1 General Surgery Resident [facility] 11-22-2023 Note Problem: Pain Goal: LTG-Verbalize decrease [...] and behaviors that affect risk of falls [place] fall precautions as indicated by assessment Educate [...] prevent overall improvement and discharge [facility] 11-21-2023 Note Attestation signed by Saida Lai MD at 11/23/2023 2:06 PM Attending Physician Statement I have discussed the case, including pertinent history and exam findings with Dr. Tanner, chairman president and chief executive officer and have personally seen the patient. I agree with the assessment, plan and orders as documented. [phone] pager [phone] phone [facility] General Surgery DAILY PROGRESS NOTE Subjective NAEO. 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 Maybe Screened via [facility]. Patient is from home, with daughter, and reports goal to return at discharge. She endorses utilization of a shower chair, walker, and CPAP at night. [facility] 11-20-2023 Note 11/20/23 0946 Admission Assessment Questions [...] Discharge? Yes Does the patient have a rn case manager assigned to them through their insurance? No [...] link and activate MyChart? No [facility] 06-18-2023 Note [facility]rophys[facility] Consult Note Reason [...] PMHx: a.fib; HTN, anxiety FMHx: father - [place]; sister - a.fib; father - a.fib Echocardiogram [...] facilit (more content not included)... [facility] 06-18-2023 Note Patient here for 6 m [...] systems reviewed and are negative. [facility] 06-14-2021 Note The [place], [place] NAME: JENNY WATT DATE OF : MEDICAL REC#: [id number] BROADCAST PRODUCER: [address] ADMIT DATE: 06/14/2021 08:37:00 NORMALIZER DATE: 06/20/2021 08:00 DICTATING PHYSICIAN: CHARLI PULIDO DICTATION DATE: 06/14/2021 18:00 duplicate entry Electronically Authenticated and Edited by: Charli Pulido MD on 12/05/2021 07:50 PM EDT The [place], [place] NAME: JENNY WATT DATE OF : MEDICAL REC#: [id number] BROADCAST PRODUCER: [address] ADMIT DATE: 06/14/2021 08:37:00 NORMALIZER DATE: 06/20/2021 08:00 DICTATING PHYSICIAN: CHARLI PULIDO [...] in an anterior/posterior direction. 360 joules of [place]'s cardioversion on two occasions did not convert [...] Approved by: CHARLI PULIDO 12/05/2021 19:42:00 The [facility] Evaluation + Plan note No data available for this section [facility] Hospital Discharge instructions No data available for this section [facility] Progress note No data available for this section [facility] Summary Purpose Family History No Family History Records FoundNo Family History Records FoundNo Family History Records Found No data available for this section No Family History Records Found Advance Directives No Advanced Directives Records FoundNo Advanced Directives Records FoundNo Advanced Directives Records FoundNo Advanced Directives Records Found Additional Source Comments INFORMATION SOURCE (unrecogn ized section and content) DATE CREATED AUTHOR 08/17/2021 [facility] DATE CREATED AUTHOR AUTHOR'S ORGANIZ ATION 05/19/2022 [facility] DATE CREATED AUTHOR AUTHOR'S ORGANIZ ATION 12/04/2023 [facility] DATE CREATED AUTHOR AUTHOR'S ORGANIZ ATION 01/23/2024 [facility] Patient Care team informatio n (unrecognized section and content) Personnel Name: Kerri Smith MD Address: Address: [address] [place] [address] FOR RECORDS PERTAINING TO PATIENTS WHO ARE [...] BE BASED ON THE PRIMARY CLINICAL RECORDS. [facility] provides no warranty or guarantee of the accuracy or completeness of information in this document.
[2024-01-28] VITALS (14 sets, daily range): BP systolic 118–127; BP diastolic 62–74; PULSE 51–75; TEMP 36.4–37.1; O2SAT 93–97
[2024-01-28] MEDS: DOXEPIN HCL 25 MG CAPSULE 50 MG PO (00:07)
[2024-01-28] MEDS: ONDANSETRON PF 4 MG/2 ML VIAL IV (00:08)
[2024-01-28] MEDS: MORPHINE SULFATE 2 MG/ML SYRINGE IV (00:08)
[2024-01-28] MEDS: TEMAZEPAM 15 MG CAPSULE PO (00:08)
[2024-01-28] MEDS: LEVOTHYROXINE SODIUM 100 MCG TABLET 50 MCG PO (05:36)
[2024-01-28 05:48] LABS: Basophils Percent Auto 0.3 % (0.2-2.0); Eosinophils Absolute Auto 0.1 10^3/uL (0.0-0.7); Eosinophils Percent Auto 1.3 % (0.9-7.0); Hematocrit 34.8 % (36.0-48.0); Hemoglobin 10.8 g/dL (12.0-16.0); Immature Granulocytes Abs Auto 0.01 10^3/uL (0.00-0.03); Immature Granulocytes Pct Auto 0.1 % (0.0-0.5); Lymphocytes Absolute Auto 1.6 10^3/uL (1.2-3.8); Mean Corpuscular Hemoglobin 26.8 pg (26.7-34.0); Mean Corpuscular Volume 86.4 fL (81.0-99.0); Mean Platelet Volume 9.7 fL (9.5-13.5); Monocytes Absolute Auto 0.8 10^3/uL (0.3-0.8); Monocytes Percent Auto 9.8 % (1.7-12.0); Neutrophils Absolute Auto 5.1 10^3/uL (1.4-6.5); Neutrophils Percent Auto 67.5 % (43.0-75.0); Platelet Count 381 10^3/uL (150-450); Red Blood Count 4.03 10^6/uL (4.20-5.40); Red Cell Distribution Width 17.2 % (11.0-15.0); White Blood Count 7.6 10^3/uL (4.0-11.0)
[2024-01-28 06:04] LABS: Alanine Aminotransferase 22 U/L (14-59); Albumin Globulin Ratio 0.8; Albumin Level 2.7 g/dL (3.4-5.0); Alkaline Phosphatase 111 U/L (46-116); Aspartate Amino Transferase 12 U/L (15-37); BUN Creatinine Ratio 7.2; Bilirubin Total 0.5 mg/dL (0.2-1.0); Calcium 8.6 mg/dL (8.5-10.1); Carbon Dioxide 28.5 mmol/L (21.0-32.0); Chloride 106 mmol/L (98-107); Estimated GFR (African America >60 (>=60); Estimated GFR (Non-African Ame >60 (>=60); Globulin 3.3 g/dL; Glucose 90 mg/dL (74-106); Magnesium 1.9 mg/dL (1.8-2.4); Potassium 3.5 mmol/L (3.5-5.1); Sodium 141 mmol/L (136-145)
[2024-01-28 06:37] LABS: INR 1.07; Partial Thromboplastin Time 32.7 sec (22.3-36.2); Prothrombin Time 11.3 sec (9.0-11.6)
--- NOTE | 2024-01-28 08:05 | CM.NOTE ---
Rounds made with Dr. Smith, pt continues with nausea. Pt NPO status with consult to general surgery.
--- NOTE | 2024-01-28 08:16 | P.HP_ITS ---
HPI H&P: HPI History of Present Illness Chief complaint: nausea, constipation Narrative: Patient presented to the emergency room last night with increasing nausea vomiting and abdominal pain. She is unable to keep down even liquids at home. CT scan confirmed progression of her colonic obstruction. Likely diverticular related as opposed to cancer. With failed outpatient treatment on her third occasion she is admitted for workup and treatment of same I saw patient up on the floor she was resting comfortably in bed. Still has abdominal pain but not as severe as long as she does not eat anything. No emesis this morning but has not had anything by mouth Opioid HPI Opioid Management Most Recent Pain and Opioid Data: Last Pain Scale 3 01/28/24 03:06 Last Pain Assessment 01/28/24 08:31 Last MAR Pain Assessment 01/28/24 01:26 Last ORT Total Score 0 01/27/24 23:29 Last ORT Risk Category Low Risk 01/27/24 23:29 [facility] Medical History Partial obstruction of colon ?K56.600 - Partial intestinal obstruction, unspecified as to cause (ICD-10) Diverticulitis ?K57.92 - Diverticulitis of intestine, part unspecified, without perforation or abscess without bleeding (ICD-10) Hypertension ?I10 - Essential (primary) hypertension (ICD-10) A-fib ?I48.91 - Unspecified atrial fibrillation (ICD-10) Acute diverticulitis ?K57.92 - Diverticulitis of intestine, part unspecified, without perforation or abscess without bleeding (ICD-10) Abdominal pain ?R10.9 - Unspecified abdominal pain (ICD-10) Surgical History History of cholecystectomy ?Z90.49 - Acquired absence of other specified parts of digestive tract (ICD- 10) Family History Sister Family history of hypertension Father Family history of myocardial infarction Social History (Updated 01/27/24 @ 23:49 by Samara Borrero RN) Within the past year, how often did you have a drink containing alcohol: never Within the past year, how often did you have six or more drinks on one occasion: never Score interpretation: A score less than 3 is consistent with normal alcohol consumption. Smoking status: Former smoker Non-prescribed substance use: denies use Previous occupational history: retired Highest level of school completed/degree received: 11th grade Are you now , , , , never or living with a partner: In a typical week, how many times do you talk on the telephone with family, f riends, or neighbors: 3 or more times per week How often do you get together with friends or relatives: twice per week How often do you attend baptism or cheondoism services: 4 or more times per year Do you belong to any clubs or organizations such as baptism groups unions, [employer] or athletic groups, or school groups: no Total score: 2 Score interpretation: A score of greater than or equal to 2 indicates the lowest level of social isolation. Little interest or pleasure in doing things: not at all Feeling down, depressed, or hopeless: not at all Feel stressed/tense/nervous/anxious/difficulty sleeping: not at all Do you think of yourself as: straight/heterosexual Gender Identity: female Meds Home Medications and Allergies Home Medications ?Medication ?Instructions ?Recorded ?Confirmed ?Type amiodarone 100 mg tablet 100 mg PO DAILY 11/19/23 01/28/24 History apixaban 5 mg tablet (Eliquis) 5 mg PO Q12H 11/19/23 01/28/24 History carvedilol 6.25 mg tablet 6.25 mg PO Q12H 11/19/23 01/28/24 History diltiazem HCl 180 mg capsule,24 180 mg PO DAILY 11/19/23 01/28/24 History hr,extended release (Tiadylt ER) doxepin 25 mg capsule 50 mg PO .pm 11/19/23 01/28/24 History irbesartan 300 mg tablet 300 mg PO DAILY 11/19/23 01/28/24 History levothyroxine 50 mcg tablet 50 mcg PO DAILY 11/19/23 01/28/24 History omeprazole 40 mg capsule,delayed 40 mg PO DAILY 11/19/23 01/28/24 History release linaclotide 72 mcg capsule 72 mcg PO DAILY 12/25/23 01/28/24 History (Linzess) doxepin 10 mg capsule 10 mg PO .QD 01/18/24 01/28/24 History Allergies Allergy/AdvReac Type Severity Reaction Status Date / Time No Known Drug Allergies Allergy Verified 01/18/24 07:39 Exam Constitutional Vital Signs, click to edit/add: Last Vital Signs Temp 97.6 F 01/28/24 07:48 Pulse 53 L 01/28/24 08:00 Resp 18 01/28/24 07:52 BP 125/62 01/28/24 07:48 Pulse Ox 93 L 01/28/24 07:48 O2 Del Method Room Air 01/28/24 07:48 O2 Flow Rate 2 01/28/24 04:05 Documenting provider has reviewed patient's vital signs: yes Common normals: no apparent distress Chest Common normals: inspection of chest normal Respiratory Common normals: normal respiratory effort and no retractions Cardio Common normals: regular rate and regular rhythm GI Common normals: Normal to inspection, nondistended, normoactive bowel sounds present, soft to palpation and non-tender Palpation: non-tender (Rebound tenderness resolved) Neuro Common normals: oriented x3 Results Labs Labs: Short CBC 01/27/24 01/28/24 Range/Units 17:22 05:19 WBC 8.8 7.6 (4.0-11.0) 10^3/uL Hgb 12.0 10.8 L (12.0-16.0) g/dL Hct 37.5 34.8 L (36.0-48.0) % Plt Count 431 381 (150-450) 10^3/uL BMP 01/27/24 01/28/24 17:22 05:19 Sodium 135 L 141 Potassium 4.4 3.5 Chloride 101 106 Carbon Dioxide 27.7 28.5 BUN 6.0 L 5.0 L Creatinine 0.70 0.69 Glucose 111 H 90 Calcium 9.2 8.6 Liver Function 01/27/24 01/28/24 Range/Units 17:22 05:19 Total Bilirubin 0.7 0.5 (0.2-1.0) mg/dL AST 24 12 L (15-37) U/L ALT 25 22 (14-59) U/L Alkaline Phosphatase 128 H 111 (46-116) U/L Albumin 3.1 L 2.7 L (3.4-5.0) g/dL Urine 01/27/24 Range/Units 21:05 Urine Color Lt. yellow (YELLOW) Urine Clarity Clear (CLEAR) Urine pH 6.5 (5.0-9.0) Ur Specific [place] <=1.005 A (1.005-1.025) Urine Protein Negative (NEG/TRACE) mg/dL Urine Glucose (UA) Negative (NEGATIVE) mg/dL Assessment and Plan Assessment and Plan (1) Abdominal pain: (2) Partial bowel obstruction: Plan Admissions findings: Patient with failure third ER visit secondary to the abdominal pain more right sided, nausea vomiting, unable to keep down even liquids at home. She is only had liquids for the last 3 to 4 weeks. No has progressed to not being able to tolerate that. She is already transferred up once to [facility] for evaluation things settle down so she was sent home, now with progression of the stricture she is readmitted. Will discuss with [facility] about transfer, local surgeon stating patient high risk for perforation secondary to the obstruction, will likely need surgery at a tertiary care facility anyway so he is recommending transfer. Will discuss with [facility] Iron deficiency anemia-Down somewhat today, check occult blood Hyponatremia-improved today, secondary to dehydration secondary to the above Elevated liver function test likely secondary to the dehydration-improved today Moderate protein calorie malnutrition secondary to the reoccurrence of her abdominal pain and persistence of it over the last month. Patient need of surgical intervention to correct. History of atrial fibrillation-rate controlled Hypertension by history-stable here continue with home medications Hypothyroidism-can check levels as an outpatient normal recently GERD-continue with PPI IV Admission status: Patient with cecal obstruction, in need of surgery, recommending for transfer based on surgical evaluation here. With need for likely surgical intervention hospitalization for 3 days. Medically necessary treatment will span 2 midnights or more. Inpatient status
--- NOTE | 2024-01-28 08:18 | PM.DS1 ---
DS: Providers Provider Date of admission: 01/27/24 23:27 Primary care physician: Lele Smith MD Consults: 01/28/24 06:51 Consult to General Surgeon Routine Consulting Provider: Pasha López Reason for consultation: scope saturday - needs bowel prep order Consult to Pharmacy Routine Consulting Provider: Reason for consultation: Please [place] me when Med Rec is Updated Has provider been notified: No Occupational Therapy Eval and Treat Routine Reason for consultation: Only if needed for Rehab Has provider been notified: No Physical Therapy Eval and Treat Routine Reason for consultation: Eval and Treat Has provider been notified: No DS: Summary Status at Discharge Cognitive/behavioral status at discharge: Patient is admitted with recurrence of her nausea vomiting. Unable to control as an outpatient has been in the emergency room 3 times. Looks like the stricture is noted before is deteriorated. This is still suggestive of a stricture secondary to recurrent diverticulitis as opposed to a mass. Unable to provide surgical intervention here. Recommended transfer to tertiary care facility and she will be transferred to [facility]. Overall status at discharge: patient is not back to baseline Time Spent with Patient Time attestation: Total time spent providing and/or coordinating discharge services: Time spent: greater than 30 minutes Exam Constitutional Vital Signs, click to edit/add: Last Vital Signs Temp 97.6 F 01/28/24 07:48 Pulse 53 L 01/28/24 08:00 Resp 18 01/28/24 07:52 BP 125/62 01/28/24 07:48 Pulse Ox 93 L 01/28/24 07:48 O2 Del Method Room Air 01/28/24 07:48 O2 Flow Rate 2 01/28/24 04:05 DS: Data Data Completed and Pending Labs on day of discharge: Labs from last 24 hours 01/28/24 01/27/24 01/27/24 05:19 21:05 17:22 WBC 7.6 8.8 RBC 4.03 L 4.39 Hgb 10.8 L 12.0 Hct 34.8 L 37.5 MCV 86.4 85.4 MCH 26.8 27.3 MCHC 31.0 32.0 RDW 17.2 H 17.2 H Plt Count 381 431 MPV 9.7 10.4 Neut % (Auto) 67.5 80.8 H Lymph % (Auto) 21.0 11.5 L [place] % (Auto) 9.8 6.0 Eos % (Auto) 1.3 0.9 Baso % (Auto) 0.3 0.3 Neut # (Auto) 5.1 7.1 H Lymph # (Auto) 1.6 1.0 L [place] # (Auto) 0.8 0.5 Eos # (Auto) 0.1 0.1 Baso # (Auto) 0.0 0.0 Abs Immat Gran (auto) 0.01 0.04 H Imm/Tot Granulo (auto) 0.1 0.5 PT 11.3 INR 1.07 APTT 32.7 Sodium 141 135 L Potassium 3.5 4.4 Chloride 106 101 Carbon Dioxide 28.5 27.7 Anion Gap 10.0 10.7 BUN 5.0 L 6.0 L Creatinine 0.69 0.70 Est GFR ( Amer) >60 >60 Est GFR (Non-Af Amer) >60 >60 BUN/Creatinine Ratio 7.2 8.6 Glucose 90 111 H Lactate 1.3 Calcium 8.6 9.2 Phosphorus 3.0 Magnesium 1.9 Total Bilirubin 0.5 0.7 AST 12 L 24 ALT 22 25 Alkaline Phosphatase 111 128 H Total Protein 6.0 L 7.4 Albumin 2.7 L 3.1 L Globulin 3.3 4.3 Albumin/Globulin Ratio 0.8 0.7 Lipase 17.0 Urine Color Lt. yellow Urine Clarity Clear Urine pH 6.5 Ur Specific [place] <=1.005 A Urine Protein Negative Urine Glucose (UA) Negative Urine Ketones Negative Urine Occult Blood Negative Urine Nitrite Negative Urine Bilirubin Negative Urine Urobilinogen 1.0 Ur Leukocyte Esterase Negative Discharge Plan Discharge Disposition: General Acute Hospital Discharge Date/Time: 01/28/24 16:50
[2024-01-28] MEDS: LOSARTAN POTASSIUM 50 MG TABLET 100 MG PO (08:27)
[2024-01-28] MEDS: CARVEDILOL 3.125 MG TABLET 6.25 MG PO (08:27)
[2024-01-28] MEDS: DOXEPIN HCL 10 MG CAPSULE PO (08:27)
[2024-01-28] MEDS: AMIODARONE HCL 200 MG TABLET 100 MG PO (08:27)
[2024-01-28] MEDS: DILTIAZEM HCL 180 MG CAP.ER.24H PO (08:27)
--- NOTE | 2024-01-28 10:22 | CM.NOTE ---
Important Message From [employer] discussed with pt, pt verbalizes understanding and signs paper. Original given to pt and copy placed on pt's chart.
[2024-01-28] MEDS: 0.9 % SODIUM CHLORIDE 1,000 ML 100 ML IV (12:24)
--- NOTE | 2024-01-28 15:55 | NUTR.NU ---
Pt was admitted 01/27/24 w/continued partial bowel obstruction (last admission 12/24-12/26/23). Cecal obstruction causes abdominal pain and GI distress. She indicates she has had fluids only, no solid foods, x 3-4 weeks and is currently unable to tolerate liquids. She is NPO at this time w/IV fluids (normal saline) only. Pt is awaiting transfer to [facility]; if transfer is delayed, will recommend TPN.
== END 2024-01-28 16:50 | disposition short-term general hospital (02) | DRG 389 ==
LOC: ER 20:50 → MS 23:28
PROVIDERS: Physician Assistant; Registered Nurse; Admitting Provider Family Medicine; Emergency Provider Emergency Medicine; PCP Family Medicine; Visit Provider Family Medicine
DX: K56.600 Partial intestinal obstruction, unspecified as to cause (principal); E44.0 Moderate protein-calorie malnutrition; E87.1 Hypo-osmolality and hyponatremia; Z68.42 Body mass index [BMI] 45.0-49.9, adult; K57.32 Diverticulitis of large intestine without perforation or abscess without bleeding; I10 Essential (primary) hypertension; I48.91 Unspecified atrial fibrillation; D50.9 Iron deficiency anemia, unspecified; R79.89 Other specified abnormal findings of blood chemistry; E86.0 Dehydration; E03.9 Hypothyroidism, unspecified; K21.9 Gastro-esophageal reflux disease without esophagitis; Z79.01 Long term (current) use of anticoagulants; Z79.899 Other long term (current) drug therapy; Z79.890 Hormone replacement therapy; Z90.49 Acquired absence of other specified parts of digestive tract; Z87.891 Personal history of nicotine dependence
CPT/HCPCS: 36415; 74177; 80053; 81003; 83605; 83690; 83735; 84100; 85025; 85610; 85730; 93005; 94667; 94761; 96361; 96374; 96375; 96376; 99285; G0328; J2270; J2405; Q9966; Q9967

== ENCOUNTER 2024-03-08 13:12 | Inpatient (IN) | payer MEDICARE, OTHER, SELFPAY ==
[2024-03-08] VITALS (9 sets, daily range): BP systolic 119–128; BP diastolic 61–74; PULSE 56–82; TEMP 36.6–36.8; O2SAT 92–98; BMI 43.6; BMI 43.0
--- OUTSIDE RECORDS SUMMARY | 2024-03-08 13:19 | XMS_ITS | CCD ---
Author Organization [facility] CliniSynv Care Team Providers Care Tennis Desk Team Member Name Role Phone KERRI SMITH Referring Unavailable KERRI SMITH Primary Care Unavailable CHARLI PULIDO Attending Unavailable CHARLI PULIDO Admitting Unavailable MISC, DR FLAHERTY Admitting Unavailable NUZHAT, DR MANNING Primary Care Unavailable MISC, DR FLAHERTY Attending Unavailable MISC, DR FLAHERTY Consulting Unavailable JOE, CHARLI Consulting Unavailable HOY, DR MANNING Attending Unavailable HOY, DR MANNING Consulting Unavailable BISHOPY, DR MANNING Primary Care Unavailable HOY, DR MANNING Admitting Unavailable JOE, CHARLI Consulting Unavailable JOE, CHARLI Admitting Unavailable JOE, CHARLI Attending Unavailable NUZHAT, DR MANNING Primary Care Unavailable Kerri Smith Primary Care Physician [phone] Pasha BACH Attending Unavailable Kerri Smith Referring Unavailable ROHIT DELCID Referring Unavailable RIZWANA CONNORS Attending Unavailable LISSA SPENCER Attending Unavailable JOELLE, SAIDA Attending Unavailable EDUARDO WALKER Referring Unavailable SAIDA LAI Admitting Unavailable JOELLE, SAIDA Attending Unavailable KERRI SMITH Referring Unavailable HORANISHONA Admitting Unavailable JAJALOUIE Attending Unavailable LISSA SPENCER Referring Unavailable IRMA COUCH Referring Unavailable HILARY KING Referring Unavailable Allergies Allergy Classification Reported Allergen(s) Allergy Type Date of Onset Reaction(s) Facility (1 source) No Known Medication Allergies; Translations: [No Known Medication Allergies] Propensity to adverse reactions (disorder) [facility] Repository Medications Current Medications Medication Drug [...] Classification Problem Date Documented Da te Episodic/Chronic Abdominal pain (2 sources) Unspecified abdominal pain; Translations: [Unspecified abdominal pain] Onset: 01-28-2024 Episodic Anxiety disorders (1 source) Anxiety 12-30-2023 Chronic Cardiac dysrhythmias (8 sources) Unspecified atrial fibrillation; Translations: [Atrial fibrillation] [...] without bleeding] Onset: 11-20-2023 Chronic Essential hypertension (4 sources) Essential (primary) hypertension; Translations: [Essential hypertension] Onset: 06-27-2021 12-30-2023 Chronic Intestinal obstruction without hernia (2 sources) Other intestinal obstruction unspecified as to partial versus complete obstruction; Translations: [Other intestinal obstruction unspecified as to partial versus complete obstruction] Onset: 02-11-2024 Episodic Nonmalignant breast conditions (1 source) Fibrocystic disease [...] te Episodic/Chronic Other aftercare (2 sources) Other halfway (current) drug therapy; Translations: [Other exterminator (current) drug therapy] Onset: 06-18-2023 Episodic Other lower respiratory disease (1 source) Other forms of dyspnea; Translations: [OTHER FORMS OF DYSPNEA] Onset: 06-27-2021 Episodic Unclassified (1 source) CONTACT W/AND (SUSP) EXPOS COVID-19; Translations: [CONTACT W/AND (SUSP) EXPOS COVID-19] Onset: 03-07-2022 Results Test Name Value Interpretation Reference Range Facility Documentationon 02-12-2024 Documentation [id number] Angie Watt 1950 F Date Provider Department Center 02/12/2024 RIZWANA MURILLO [facility]. Family History Problem Relation Age of Onset Heart attack Father Atrial fibrillation Father Atrial fibrillation Sister Family Status - Relation Status Age at Father Sister Normal [facility] Office Visiton 02-11-2024 Follow-up visit [id number] Angie Watt 1950 F Date Provider Department Center 02/11/2024 Mallika-SAIDA LAI [facility] SURG Second Fl Family History Problem Relation Age of Onset Heart attack Father Atrial fibrillation Father Atrial fibrillation Sister Family Status - Relation Status Age at Father Sister Level of Service:22935 [place] OFFICE/OUTPATIENT ESTABLISHED LOW MDM 20 MIN Reason for Visit and Comments: Post-op [483] - Angie is here today for post op visit: Stricture of colon, s/p 01/31/24 colonoscopy Normal [facility] 30on 01-31-2024 30 The patient is Moderately Stable - Low risk of patient condition declining or worsening The patient's goals for the shift include colonoscopy The clinical goals for the shift include VSS, safety Normal [facility] HISTOLOGY - TISSUE EXAMon LAB AP CASE REPORT Normal [facility] Comment on above: Order Comment: Pre-o p diagnosis: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] Result Comment: Surg ical Pathology Case: [id number] Authorizing Provider: Saida Lai MD Collected: 01/31/20245 Ordering Location: [facility] Main Operating Room Received: 02/03/2024 0616 Pathologist: Siobhan Kraft MD Specimens: A) - Large Intestine, Left/Descending Colon, 55cm colon tissue B) - Large Intestine, Sigmoid Colon, sigmoid biopsy 30cm Performed By: #### L [id number] ####[facility] (BEAKER)[address] [place] [address] LAB AP CLINICAL INFORMATION [facility] Comment on above: Order Comment: Pre-o p diagnosis: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] Result Comment: Post -Op Diagnoses K56.699 - Stricture of colon (CMS/HCC) [ICD-10-CM] Performed By: #### L [id number] ####[facility] (BEAKER)[address] [place] [address] LAB AP GROSS DESCRIPTION [facility] Comment on above: Order Comment: Pre-o p diagnosis: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 L arge Intestine, Left/Descending Colon. Received in formalin labeled Angie Nay, 55 cm colon tissue are four rosas soft tissue bits and strips, 0.1 to 0.6 cm. The specimen is entirely submitted in a single cassette. Blanca Chen, Pathologists' Color Maker B. Large Intestine, Sigmoid Colon. Received in formalin labeled Angie Nay, Sigmoid biopsy 30 cm are nine rosas soft tissue bits, 0.2 to 0.4 cm. The specimen is entirely submitted in a single cassette. Blanca Chen, Pathologists' Color Maker Performed By: #### L [id number] ####[facility] (BEAKER)[address] [place] [address] LAB AP MICROSCOPIC DESCRIPTION Microscopic examination performed. 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 C olon, 55 cm, biopsy: - Tubular adenoma. B. Sigmoid colon, 30 cm, biopsy: - Colonic mucosa with no significant histologic abnormality. - No evidence of dysplasia. Performed By: #### L [id number] ####[facility] (BERICKI)[address] [place] [address] HPon 01-31-2024 HP H&P reviewed. The patient was examined and there are no changes to the H&P. CT scan showed thickening of the descending colon and sigmoid colon. Proceed for colonoscopy today. 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 Priority Lab ID A Large Intestine, Left/Descending Colon Tissue HISTOLOGY - TISSUE EXAM Saida Lai MD 01/31/241714 Description: 55cm colon tissue B Large Intestine, Sigmoid Colon Tissue HISTOLOGY - TISSUE EXAM Saida Lai MD 01/31/241715 Description: sigmoid biopsy 30cm Staff: Infectious Waste Technician: Kaur Jacinto RN Scrub Person: Lacy Binting, RISK MANAGER Indications: Angie Watt is an 73 y.o. female who is having surgery for Stricture of colon ([facility]) [K56.699]. Colonoscopy was offered to the patient, informed consent was obtained. Procedure Details: The patient was seen in the preoperative area. The risks, benefits, complications, treatment options, non-operative alternatives, expected recovery and outcomes were discussed with the patient. The possibilities of reaction to medication, pulmonary aspiration, injury to surrounding structures, bleeding, recurrent infection, the need for additional procedures, failure to diagnose a condition, and creating a complication requiring transfusion or operation were discussed with the patient. The patient concurred with the proposed plan, giving informed consent. The site of surgery was properly noted/marked if necessary per policy. The patient has been actively warmed in preoperative area. Preoperative antibiotics are not indicated. Venous thrombosis prophylaxis have been ordered including bilateral sequential compression devices Description of Procedure: Informed consent was obtained after explanation of the procedure including indications, description of the procedure, benefits and possible risks and complications of the procedure, and alternatives. Questions were answered. The patient's history was reviewed and a directed physical examination was performed prior to the procedure. Patient was monitored throughout the procedure with pulse oximetry and periodic assessment of vital signs. Patient was sedated as noted above. With the patient initially in the left lateral decubitus position, a digital rectal examination was performed. The Olympus video colonoscope was placed in the patient's rectum and advanced without difficulty to the cecum, which was identified by the ileocecal valve. The prep was fair. Examination of the mucosa was performed during both introduction and withdrawal of the colonoscope. Retroflexed view of the rectum was performed. The patient was taken to the recovery area in good condition. Findings: 1. Sigmoid and descending colon edema and stenosis from 30 cm to 50 cm from anal verge. 2. Sigmoid colon polyp at 50 cm from anal verge, cold biopsy. 3. Pancolon diverticulosis. Recommendations: 1. Await pathology Follow up with [place] [phone] pager [phone] clinic Normal [facility] POCT GLUCOSE METER UNSOLICIT ED RESULTSon 01-31-2024 Glucose [Mass/Vol] 91 mg/dL Normal 70-105 [facility] Comment on above: Order Comment: Waive d Testing in the ED is performed under the ED CLIA certificate #[id number]. Result Comment: [email or web address] Performed By: #### L [id number] #### [facility] (BEATRIZAKER) [address] [place] [address] 30on 01-30-2024 30 The patient is Moderately Stable - Low risk of patient condition declining or worsening The patient's goals for the shift include bowel prep The clinical goals for the shift include bowel prep, VSS Normal [facility] 30 The patient is Moderately Stable - Low risk of patient condition declining or worsening The patient's goals for the shift include bowel prep The clinical goals for the shift include bowel prep, VSS Problem: Pain - Adult Goal: Verbalizes/displays adequate comfort level or baseline comfort level Outcome: Progressing Flowsheets (Taken 01/29/20242032 by Delfina Lucero RN) Verbalizes/displays adequate comfort level or baseline comfort level: Assess pain using appropriate pain scale Administer analgesics based on type and severity of pain and evaluate response Encourage patient to monitor pain and request assistance Problem: Safety - Adult Goal: Free from fall injury Outcome: Progressing Flowsheets (Taken 01/29/20242032 by Delfina Lucero, RN) Free from fall injury: Assess patient frequently for physical needs Identify cognitive and physical deficits and behaviors that affect risk of falls [place] fall precautions as indicated by assessment Problem: Discharge Planning Goal: Discharge to home or other facility with appropriate resources Outcome: Progressing Flowsheets (Taken 01/29/20242032 by Delfina Lucero, RN) Discharge to home or other facility with appropriate resources: Identify barriers to discharge with patient and caregiver Problem: Chronic Conditions and Co-morbidities Goal: Patient's chronic conditions and co-morbidity symptoms are monitored and maintained or improved Outcome: Progressing Flowsheets (Taken 01/29/20242032 by Delfina Lucero RN) Care Plan - Patient's Chronic Conditions and Co-Morbidity Symptoms are Monitored and Maintained or Improved: Monitor and assess patient's chronic conditions and comorbid symptoms for stability, deterioration, or improvement Normal [facility] CEAon 01-30-2024 CARCINOEMBRYONIC AG (NG/ML) IN SER/PLAS 2.0 ng/mL Normal 0-3 [facility] Comment on above: Performed By: #### L [id number] #### [facility] (BERICKI) [address] [place] [address] 30on 01-29-2024 30 The patient is Moderately Stable - Low risk of patient condition declining or worsening The patient's goals for the shift include to go home The clinical goals for the shift include safety Problem: Pain - Adult Goal: Verbalizes/displays adequate comfort level or baseline comfort level Outcome: Progressing Flowsheets (Taken 01/29/20242032) Verbalizes/displays adequate comfort level or baseline comfort level: Assess pain using appropriate pain scale Administer analgesics based on type and severity of pain and evaluate response Encourage patient to monitor pain and request assistance Problem: Safety - Adult Goal: Free from fall injury Outcome: Progressing Flowsheets (Taken 01/29/20242032) Free from fall injury: Assess patient frequently for physical needs Identify cognitive and physical deficits and behaviors that affect risk of falls [place] fall precautions as indicated by assessment Problem: Discharge Planning Goal: Discharge to home or other facility with appropriate resources Outcome: Progressing Flowsheets (Taken 01/29/20242032) Discharge to home or other facility with appropriate resources: Identify barriers to discharge with patient and caregiver Problem: Chronic Conditions and Co-morbidities Goal: Patient's chronic conditions and co-morbidity symptoms are monitored and maintained or improved Outcome: Progressing Flowsheets (Taken 01/29/20242032) Care Plan - Patient's Chronic Conditions and Co-Morbidity Symptoms are Monitored and Maintained or Improved: Monitor and assess patient's chronic conditions and comorbid symptoms for stability, deterioration, or improvement Normal [facility] 30 The patient is Moderately Stable - Low risk of patient condition declining or worsening The patient's goals for the shift include find out what is going on The clinical goals for the shift include safety, comfort Problem: Safety - Adult Goal: Free from fall injury Outcome: Progressing Flowsheets (Taken 01/29/2024 013 by Erika Hanley RN) Free from fall injury: Assess patient frequently for physical needs Identify cognitive and physical deficits and behaviors that affect risk of falls [place] fall precautions as indicated by assessment Educate patient/family on patient safety, including physical limitations Instruct patient to call for assistance with activity based on assessment Modify environment to reduce risk of injury Problem: Discharge Planning Goal: Discharge to home or other facility with appropriate resources Outcome: Progressing Flowsheets (Taken 01/29/2024138 by Erika Hanley RN) Discharge to home or other facility with appropriate resources: Identify barriers to discharge with patient and caregiver Arrange for needed discharge resources and transportation as appropriate Identify discharge learning needs (meds, wound care, etc) Problem: Chronic Conditions and Co-morbidities Goal: Patient's chronic conditions and co-morbidity symptoms are monitored and maintained or improved Outcome: Progressing Flowsheets (Taken 01/29/2024138 by Erika Hanley RN) Care Plan - Patient's Chronic Conditions and [...] exacerbated and prevent overall improvement and discharge Normal [facility] 30 The patient is Moderately Stable - Low risk of patient condition declining or worsening The patient's goals for the shift include to go home The clinical goals for the shift include safety Problem: Pain - Adult Goal: Verbalizes/displays adequate comfort level or baseline comfort level Flowsheets (Taken 01/29/2024138) Verbalizes/displays adequate comfort level or baseline comfort level: Encourage patient to monitor pain and request assistance Assess pain using appropriate pain scale Administer analgesics based on type and severity of pain and evaluate response Implement non-pharmacological measures as appropriate and evaluate response Consider cultural and social influences on pain and pain management Problem: Safety - Adult Goal: Free from fall injury Flowsheets (Taken 01/29/2024138) Free from fall injury: Assess patient frequently for physical needs Identify cognitive and physical deficits and behaviors that affect risk of falls [place] fall precautions as indicated by assessment Educate patient/family on patient safety, including physical limitations Instruct patient to call for assistance with activity based on assessment Modify environment to reduce risk of injury Problem: Discharge Planning Goal: Discharge to home or other facility with appropriate resources Flowsheets (Taken 01/29/2024138) Discharge to home or other facility with appropriate resources: Identify barriers to discharge with patient and caregiver Arrange for needed discharge resources and transportation as appropriate Identify discharge learning needs (meds, wound care, etc) Problem: Chronic Conditions and Co-morbidities Goal: Patient's chronic conditions and co-morbidity symptoms are monitored and maintained or improved Flowsheets (Taken 01/29/2024 0139) Care Plan - Patient's Chronic Conditions and [...] exacerbated and prevent overall improvement and discharge Normal [facility] BLOOD CULTUREon 01-28-2024 Bacteria identified Cx Nom (Bld) No growth at 5 days Normal [facility] Comment on above: Performed By: #### L [id number] ####[facility] (BEAKER)[address] [place] [address] Order Comment: From a different site than #1., Blood CBC WITH AUTO DIFFERENTIALon 01-28-2024 Basophils (Bld) [#/Vol] 0.02 10*3/uL Normal 0.00-0.20 [facility] Comment on above: Performed By: #### L [id number] #### [facility] (BEAKER) [address] [facility] [place] [address] Basophils/100 WBC (Bld) 0.3 % Normal 0.0-1.0 [facility] Comment on above: Performed By: #### L [id number] #### [facility] (BEAKER) [address] [facility] [place] [address] Eosinophils (Bld) [#/Vol] 0.13 10*3/uL Normal 0.00-0.50 [facility] Comment on above: Performed By: #### L [id number] #### [facility] (BEAKER) [address] [facility] [place] [address] Eosinophils/100 WBC (Bld) 2.0 % Normal 0.0-6.0 [facility] Comment on above: Performed By: #### L [id number] #### [facility] (BEAKER) [address] [facility] [place] [address] Erythrocyte distribution width (RBC) [Ratio] 17.5 % High 11.5-15.0 [facility] Comment on above: Performed By: #### L [id number] #### [facility] [address] [place] [address] ERYTHROCYTE MEAN CORPUSCULAR HEMOGLOBIN CONCENTRATION (G/DL) BY AUTOMATED 30.5 g/dL Low 32.0-35.0 [facility] Comment on above: Performed By: #### L [id number] #### [facility] ([facility]) [address] [place] [address] Hematocrit (Bld) [Volume fraction] 36.7 % Normal 36.0-48.0 [facility] Comment on above: Performed By: #### L [id number] #### [facility] ([facility]) [address] [place] [address] Hemoglobin (Bld) [Mass/Vol] 11.2 g/dL Low 12.0-15.0 [facility] Comment on above: Performed By: #### L [id number] #### [facility] ([facility]) [address] [place] [address] Immature granulocytes (Bld) [#/Vol] 0.02 10*3/uL Normal 0.00-0.20 [facility] Comment on above: Performed By: #### L [id number] #### [facility] ([facility]) [address] [place] [address] Immature granulocytes/100 WBC (Bld) 0.3 % Normal 0.0-1.0 [facility] Comment on above: Performed By: #### L [id number] #### [facility] (BEAKER) [address] [place] [address] Lymphocytes (Bld) [#/Vol] 1.37 10*3/uL Normal 1.20-4.00 [facility] Comment on above: Performed By: #### L [id number] #### [facility] (BEAKER) [address] [place] [address] Lymphocytes/100 WBC (Bld) 21.0 % Normal 20.0-45.0 [facility] Comment on above: Performed By: #### L [id number] #### [facility] (BEAKER) [address] [place] [address] MCH (RBC) [Entitic mass] 26.7 pg Low 27.0-33.0 [facility] Comment on above: Performed By: #### L [id number] #### [facility] [address] [place] [address] MCV (RBC) [Entitic vol] 87.4 fL Normal 82.0-98.0 [facility] Comment on above: Performed By: #### L [id number] #### [facility] ([facility]) [address] [place] [address] Monocytes (Bld) [#/Vol] 0.49 10*3/uL Normal 0.10-1.00 [facility] Comment on above: Performed By: #### L [id number] #### [facility] ([facility]) [address] [place] [address] Monocytes/100 WBC (Bld) 7.5 % Normal 5.0-12.0 [facility] Comment on above: Performed By: #### L [id number] #### [facility] ([facility]) [address] [place] [address] Neutrophils (Bld) [#/Vol] 4.48 10*3/uL Normal 1.60-7.60 [facility] Comment on above: Performed By: #### L [id number] #### [facility] ([facility]) [address] [place] [address] Neutrophils/100 WBC (Bld) 68.9 % Normal 40.0-72.0 [facility] Comment on above: Performed By: #### L [id number] #### [facility] [address] [place] [address] NRBC (PER 100 WBCS) BY AUTOMATED COUNT 0.0 % Normal 0 [facility] Comment on above: Performed By: #### L [id number] #### [facility] (BEAKER) [address] [place] [address] PLATELETS (10*3/UL) IN BLOOD AUTOMATED COUNT 437 10*3/uL High 150-400 [facility] Comment on above: Performed By: #### L [id number] #### [facility] ([facility]) [address] [place] [address] RBC (Bld) [#/Vol] 4.20 10*6/uL Normal 3.80-5.00 [facility] Comment on above: Performed By: #### L [id number] #### [facility] ([facility]) [address] [place] [address] WBC (Bld) [#/Vol] 6.51 10*3/uL Normal 4.00-10.60 [facility] Comment on above: Performed By: #### L [id number] #### [facility] ([facility] [facility]) [address] [place] [address] COMPREHENSIVE METABOLIC PANE Nacho 01-28-2024 Albumin [Mass/Vol] 3.4 g/dL Low 3.5-5.7 [facility] Comment on above: Performed By: #### L [id number] #### [facility] ([facility]) [address] [place] [address] ALP [Catalytic activity/Vol] 109 U/L High 34-104 [facility] Comment on above: Performed By: #### L [id number] #### [facility] ([facility]) [address] [place] [address] ALT [Catalytic activity/Vol] 11 U/L Normal 7-52 [facility] Comment on above: Performed By: #### L [id number] #### [facility] ([facility] [address] [place] [address] Anion gap [Moles/Vol] 11 mmol/L Normal 7-20 [facility] Comment on above: Performed By: #### L [id number] #### [facility] ([facility]) [address] [place] [address] AST [Catalytic activity/Vol] 12 U/L Low 13-39 [facility] Comment on above: Performed By: #### L [id number] #### [facility] [address] [place] [address] Bilirubin [Mass/Vol] 0.5 mg/dL Normal 0.3-1.0 [facility] Comment on above: Performed By: #### L [id number] #### [facility] [address] [place] [address] Calcium [Mass/Vol] 8.5 mg/dL Low 8.6-10.3 [facility] Comment on above: Performed By: #### L [id number] #### [facility] [address] [place] [address] Chloride [Moles/Vol] 105 mmol/L Normal 98-107 [facility] Comment on above: Performed By: #### L [id number] #### [facility] [address] [place] [address] CO2 [Moles/Vol] 27 mmol/L Normal 21-31 [facility] Comment on above: Performed By: #### L [id number] #### [facility] [address] [place] [address] Creatinine [Mass/Vol] 0.59 mg/dL Low 0.60-1.20 [facility] Comment on above: Performed By: #### L [id number] #### [facility] [address] [place] [address] GLOMERULAR FILTRATION RATE ML/MIN/1.73 SQ M.PREDICTED 96.3 mL/min/1.73m*2 Normal >60.0 [facility] Comment on above: Result Comment: [facility]???s estimated glomerular filtration rate (eGFR) will [...] group of individuals. Performed By: #### L [id number] #### [facility] ([facility]) [address] [place] [address] Glucose [Mass/Vol] 84 mg/dL Normal 70-100 [facility] Comment on above: Performed By: #### L [id number] #### [facility] ([facility]) [address] [place] [address] Potassium [Moles/Vol] 3.5 mmol/L Normal 3.5-5.1 [facility] Comment on above: Performed By: #### L [id number] #### [facility] ([facility]) [address] [place] [address] Protein [Mass/Vol] 6.3 g/dL Normal 6.0-8.3 [facility] Comment on above: Performed By: #### L [id number] #### [facility] ([facility]) [address] [place] [address] Sodium [Moles/Vol] 139 mmol/L Normal 136-145 [facility] Comment on above: Performed By: #### L [id number] #### [facility] ([facility]) [address] [place] [address] Urea nitrogen [Mass/Vol] 6 mg/dL Low 7-25 [facility] Comment on above: Performed By: #### L [id number] #### [facility] ([facility]) [address] [place] [address] UREA NITROGEN/CREATININE (MASS RATIO) IN SER/PLAS 10.2 Normal [facility] Comment on above: Performed By: #### L [id number] #### [facility] ([facility]) [address] [place] [address] CONSULTon 01-28-2024 CONSULT Reason For Consult Partial bowel obstruction Referring Provider: Amalia Lovell NP History Of Present Illness Angie Watt is a 73 y.o. female with a significant past surgical history of Cholecystectomy seven years ago, and a PMH of A-Fib s/p ablation on amiodarone and Eliquis, Hypertension, Sleep Apnea, and Anxiety. She has AAA, and Iliac A aneurysm that are stable. She has a 32 pack-year smoking history. She has been sent from [facility] where she was admitted on January 26 for abdominal discomfort for the past 4 days. She says that she has not been passing stools for the past four days, but she is passing gas today. She denies abdominal pain, nausea, vomiting, or diarrhea. Patient has tried bene fiber, colace, and prune juice with some help along with the Linzesses that she has been using for the past two months. She had similar episodes of abdominal discomfort in November 2023. She was admitted in ER and discharged on antibiotics. She had another similar episode in December 2023 for constipation for 3 days and ER admission with subsequent discharge. This episode is similar to previous episodes. Patent denies blood in stools, dark tarry stools, although she does endorse that the stool caliber has decreased significantly. Past Medical History She has a past medical history of Abnormal ECG, Arrhythmia, Atrial fibrillation (CMS/HCC), Hypertension, Hypothyroidism, Paroxysmal atrial fibrillation (CMS/HCC) (05/15/2022), and Sleep apnea. Surgical History She has a past surgical history that includes CTA Chest W IV Contrast (08/08/2021); Ablation of dysrhythmic focus (08/09/2021); and Cholecystectomy. Family History Her sister and son are diagnosed with colitis and the patient says that they have frequent loose stools. She says that she is not sure of a particular diagnosis. Family History Problem Relation Name Age of Onset Heart attack Father Atrial fibrillation Father Atrial fibrillation Sister Social History She reports that she has quit smoking. Her smoking use included cigarettes. She has never used smokeless tobacco. She has a 32 pack-year smoking history. She reports that she does not currently use alcohol. No history on file for drug use. Allergies Patient has no known allergies. Medications Medications Prior to Admission Medication Sig Dispense Refill Last Dose acetaminophen (Tylenol) 500 mg tablet Take 2 tablets (1,000 mg) by mouth every 8 (eight) hours for 291 doses. 30 tablet 0 Past Month amiodarone (Pacerone) 100 mg tablet TAKE 1 TABLET BY MOUTH ONCE DAILY DIRECTED. 90 tablet 3 01/28/2024 at 0900 apixaban (Eliquis) 5 mg tablet Take 1 tablet by mouth in the morning and at bedtime. 01/28/2024 at 0900 carvedilol (Coreg) 6.25 mg tablet Take 6.25 mg by mouth with breakfast and with evening meal. 01/28/2024 at 0900 dilTIAZem ER (Tiazac) 180 mg 24 hr capsule Take 1 tablet by mouth in the morning. 01/28/2024 at 0900 doxepin (SINEquan) 10 mg capsule 10mg in the AM, 35mg in the PM 01/27/2024 at 2100 irbesartan (Avapro) 300 mg tablet Take 1 tablet by mouth in the morning. 01/28/2024 at 0900 levothyroxine (Synthroid, Levoxyl) 50 mcg tablet Take 1 tablet by mouth in the morning. 01/28/2024 at 0700 Linzess 72 mcg capsule Take 72 mcg by mouth before breakfast. Quit taking a couple days ago Past Week omeprazole (PriLOSEC) [address] capsule Take 1 tablet by mouth in the morning. 01/28/2024 at 0900 Active Hospital Medications Medication Dose Route Frequency Last Admin amiodarone 100 mg oral Daily [Held by provider] apixaban 5 mg oral q12h JESSY carvedilol 6.25 mg oral BID with meals lactated Ringer's 75 mL/hr intravenous Continuous levothyroxine 50 mcg oral Daily losartan 100 mg oral Daily pantoprazole 40 mg oral Daily Review of Systems Patient denies Headache, vision change, ringing in ear or ear discharge. Patient denies sore throat, nasal discharge, or cough. Patient denies SOB, Palpitations, dizziness, chest pain or discomfort. Patient denies any breathing difficulties. Patient denies urinary urgency frequency, or pain while urinating. Patient endorses shoulder and knee pain due to arthritis. Patient denies skin conditions or lesion. Patient endorses abdominal distension, with no stool passed for the past 4 days, patient denies NVD. Patient denies any tingling or burning of the extremity. Last Recorded Vitals Patient Vitals for the past 24 hrs: BP Temp Temp src Pulse Resp SpO2 Height Weight 01/28/242005 135/75 36.7 ???C (98.1 ???F) Oral 64 18 96 % 1.676 m (5' 6 ) 129 kg (285 lb 7.9 oz) Physical Exam Physical Exam Constitutional: Appearance: She is obese. HENT: Head: Normocephalic and atraumatic. Right Ear: External ear normal. Left Ear: External ear normal. Nose: No congestion or rhinorrhea. Mouth/Throat: Mouth: Mucous membranes are moist. Comments: Patient has full dentures. Oral hygiene is ok. No post nasal discharge. N (more content not included)... Normal [facility] CT ABDOMEN PELVIS W IV CONTR Kermit 01-28-2024 CT ABDOMEN PELVIS W IV CONTRAST CT ABDOMEN PELVIS W IV CONTRAST 01/29/2024 12:01 AM SIGNS AND SYMPTOMS: Acute nonlocalized abdominal pain, small bowel obstruction, abdominal mass TECHNIQUE: Multidetector ct axial images of the abdomen and pelvis were obtained with IV contrast. Multiplanar reformats were performed and viewed on a separate workstation and reviewed to further define anatomy and possible pathology. Appropriate CT dose lowering techniques were utilized. COMPARISON: 11/19/2023 FINDINGS: Lower Chest: Lung bases clear. Hepatobiliary: Subcapsular segment 4 lesion measures 0.7 cm (series 4 image 34) too small to characterize. Gallbladder surgically absent. No biliary dilation. Pancreas: Pancreas unremarkable. No pancreatic ductal dilation. Spleen: Within normal limits. Adrenals: Within normal limits. Kidneys, ureters, bladder: Kidneys are unremarkable. No collecting system dilation. Urinary bladder is underdistended. Gastrointestinal: Small and large bowel are normal in caliber. Positive oral contrast present. Colonic diverticulosis. Circumferential wall thickening of the distalmost descending colon/proximal sigmoid colon with ill-defined adjacent edema. Region corresponds to transition point on prior CT. No free air. Vasculature: Infrarenal abdominal aortic aneurysm measures 3.6 cm. Fusiform dilation of the left common iliac artery up to 2.8 cm. Lymph Nodes: Enlarged 1.1 cm arlene hepatis lymph node (series 4 image 50). Enlarged para-aortic lymph node, 1.1 cm (series 4 image 61). Reproductive Organs: Uterus unremarkable. No abnormal pelvic mass. Musculoskeletal: Vertebral body heights maintained. 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 IMPRESSION: *Circumferential wall thickening of the distal descending and proximal sigmoid colon, highly concerning for malignancy. Colonoscopy recommended. *Enlarged retroperitoneal and arlene hepatis lymph nodes, suspicious for metastatic disease. *Segment 4 hepatic lesion, too small to characterize. *Infrarenal abdominal aortic aneurysm, 3.6 cm. Fusiform dilation of the left common iliac artery up to 2.[address] scans at this facility use dose modulation, iterative reconstruction, and/or weight based dosing when appropriate to reduce radiation dose to as low as reasonably achievable Approved by:Andrew Kearns01/29/2024 12:34 AM. I, Francisco Cosby,have reviewed the image(s) and agree with the findings in this report. Electronically signed: Francisco Cosby. Not Vldtd Invalid Interpretation Code [facility] HPon 01-28-2024 Reason For Consult Partial bowel obstruction Referring Provider: Amalia Lovell NP History Of Present Illness Angie Watt is a 73 y.o. female with a significant past surgical history of Cholecystectomy seven years ago, and a PMH of A-Fib s/p ablation on amiodarone and Eliquis, Hypertension, Sleep Apnea, and Anxiety. She has AAA, and Iliac A aneurysm that are stable. She has a 32 pack-year smoking history. She has been sent from [facility] where she was admitted on January 26 for abdominal discomfort for the past 4 days. She says that she has not been passing stools for the past four days, but she is passing gas today. She denies abdominal pain, nausea, vomiting, or diarrhea. Patient has tried bene fiber, colace, and prune juice with some help along with the Linzesses that she has been using for the past two months. She had similar episodes of abdominal discomfort in November 2023. She was admitted in ER and discharged on antibiotics. She had another similar episode in December 2023 for constipation for 3 days and ER admission with subsequent discharge. This episode is similar to previous episodes. Patent denies blood in stools, dark tarry stools, although she does endorse that the stool caliber has decreased significantly. Past Medical History She has a past medical history of Abnormal ECG, Arrhythmia, Atrial fibrillation (CMS/HCC), Hypertension, Hypothyroidism, Paroxysmal atrial fibrillation (CMS/HCC) (05/15/2022), and Sleep apnea. Surgical History She has a past surgical history that includes CTA Chest W IV Contrast (08/08/2021); Ablation of dysrhythmic focus (08/09/2021); and Cholecystectomy. Family History Her sister and son are diagnosed with colitis and the patient says that they have frequent loose stools. She says that she is not sure of a particular diagnosis. Family History Problem Relation Name Age of Onset Heart attack Father Atrial fibrillation Father Atrial fibrillation Sister Social History She reports that she has quit smoking. Her smoking use included cigarettes. She has never used smokeless tobacco. She has a 32 pack-year smoking history. She reports that she does not currently use alcohol. No history on file for drug use. Allergies Patient has no known allergies. Medications Medications Prior to Admission Medication Sig Dispense Refill Last Dose acetaminophen (Tylenol) 500 mg tablet Take 2 tablets (1,000 mg) by mouth every 8 (eight) hours for 291 doses. 30 tablet 0 Past Month amiodarone (Pacerone) 100 mg tablet TAKE 1 TABLET BY MOUTH ONCE DAILY DIRECTED. 90 tablet 3 01/28/2024 at 0900 apixaban (Eliquis) 5 mg tablet Take 1 tablet by mouth in the morning and at bedtime. 01/28/2024 at 0900 carvedilol (Coreg) 6.25 mg tablet Take 6.25 mg by mouth with breakfast and with evening meal. 01/28/2024 at 0900 dilTIAZem ER (Tiazac) 180 mg 24 hr capsule Take 1 tablet by mouth in the morning. 01/28/2024 at 0900 doxepin (SINEquan) 10 mg capsule 10mg in the AM, 35mg in the PM 01/27/2024 at 2100 irbesartan (Avapro) 300 mg tablet Take 1 tablet by mouth in the morning. 01/28/2024 at 0900 levothyroxine (Synthroid, Levoxyl) 50 mcg tablet Take 1 tablet by mouth in the morning. 01/28/2024 at 0700 Linzess 72 mcg capsule Take 72 mcg by mouth before breakfast. Quit taking a couple days ago Past Week omeprazole (PriLOSEC) [address] capsule Take 1 tablet by mouth in the morning. 01/28/2024 at 0900 Active [facility] Medications Medication Dose Route Frequency Last Admin amiodarone 100 mg oral Daily [Held by provider] apixaban 5 mg oral q12h JESSY carvedilol 6.25 mg oral BID with meals lactated Ringer's 75 mL/hr intravenous Continuous levothyroxine 50 mcg oral Daily losartan 100 mg oral Daily pantoprazole 40 mg oral Daily Review of Systems Patient denies Headache, vision change, ringing in ear or ear discharge. Patient denies sore throat, nasal discharge, or cough. Patient denies SOB, Palpitations, dizziness, chest pain or discomfort. Patient denies any breathing difficulties. Patient denies urinary urgency frequency, or pain while urinating. Patient endorses shoulder and knee pain due to arthritis. Patient denies skin conditions or lesion. Patient endorses abdominal distension, with no stool passed for the past 4 days, patient denies NVD. Patient denies any tingling or burning of the extremity. Last Recorded Vitals Patient Vitals for the past 24 hrs: BP Temp Temp src Pulse Resp SpO2 Height Weight 01/28/242005 135/75 36.7 ???C (98.1 ???F) Oral 64 18 96 % 1.676 m (5' 6 ) 129 kg (285 lb 7.9 oz) Physical Exam Physical Exam Constitutional: Appearance: She is obese. HENT: Head: Normocephalic and atraumatic. Right Ear: External ear normal. Left Ear: External ear normal. Nose: No congestion or rhinorrhea. Mouth/Throat: Mouth: Mucous membranes are moist. Comments: Patient has full dentures. Oral hygiene is ok. No post nasal discharge. N (more content not included)... Normal [facility] LACTIC ACID, PLASMAon 2023 LACTATE (MMOL/L) IN SER/PLAS 0.8 mmol/L Normal 0.5-2.2 [facility] Comment on above: Performed By: #### L [id number] #### [facility] ([facility]) [address] [place] [address] LIPASEon 01-28-2024 LIPASE (U/L) IN SER/PLAS 7 U/L Low 11-82 [facility] Comment on above: Performed By: #### L [id number] #### [facility] ([facility]) [address] [place] [address] PROTIME-INRon 01-28-2024 INR IN PPP BY COAGULATION ASSAY 1.21 High 0.90-1.10 [facility] Comment on above: Result Comment: ACCC [...] CHEST 1995;[id number]. Performed By: #### L [id number] ####[facility] ([facility])[address] [place] [address] PROTHROMBIN TIME (PT) IN PPP BY COAGULATION ASSAY 15.3 Seconds High 12.3-14.8 [facility] Comment on above: Performed By: #### L [id number] ####[facility] ([facility])[address] [place] [address] TROPONIN Ion 01-28-2024 Troponin I.cardiac [Mass/Vol] 0.01 ng/mL Normal 0.00-0.04 [facility] Comment on above: Performed By: #### L [id number] ####[facility] ([facility])[address] [place] [address] Ambulatory Visit Summaryon 0 01-21-2024 Ambulatory Visit Summary Ambulatory Visit Summary ANGIE WATT :1950 Visit Date:01/21/2024 Ambulatory Visit Instructions Your Care Team Attending Physician - ISREAL CARLSON, Pasha Mercado Primary Care Physician - Nuzhat CARLSON, Kerri Referring Physician - Kerri Smith [...] for choosing us for your care. Yair [facility] Ambulatory Visit Summary Ambulatory Visit Summary ANGIE WATT :1950 Visit Date:01/21/2024 Ambulatory Visit Instructions Your Care Team Attending Physician - ISREAL CARLSON, Pasha Mercado Primary Care Physician - Kerri Smith MD Referring Physician - Kerri Smith MD This [...] for choosing us for your care. Normal [facility] Office Visiton 12-24-2023 Follow-up visit [id number] Angie Watt Gómez 1950 F Date Provider Department Center 12/24/2023 [facility]WANA [facility] Family History Problem Relation Age of Onset Heart attack Father Atrial fibrillation Father Atrial fibrillation Sister Family Status - Relation Status Age at Father Sister Level of Service:[address]36 [place] OFFICE/OUTPATIENT ESTABLISHED MOD MDM 30 MIN Normal [facility] Physician Referralon 024 Physician Referral [phone] [id number] TIFF Normal [facility] BASIC METABOLIC PANELon Anion gap [Moles/Vol] 12 mmol/L Normal 7- [facility] Comment on above: Performed By: #### L [id number] #### [facility] ([facility]) [address] [place] [address] Calcium [Mass/Vol] 8.5 mg/dL Low 8.6-10.3 [facility] Comment on above: Performed By: #### L [id number] #### [facility] ([facility]) [address] [place] [address] Chloride [Moles/Vol] 101 mmol/L Normal 98-107 [facility] Comment on above: Performed By: #### L [id number] #### [facility] ([facility]) [address] [place] [address] CO2 [Moles/Vol] 26 mmol/L Normal 21-31 [facility] Comment on above: Performed By: #### L [id number] #### [facility] ([facility]) [address] [place] [address] Creatinine [Mass/Vol] 0.78 mg/dL Normal 0.60-1.20 [facility] Comment on above: Performed By: #### L [id number] #### [facility] ([facility]) [address] [place] [address] GLOMERULAR FILTRATION RATE ML/MIN/1.73 SQ M.PREDICTED 81.2 mL/min/1.73m*2 Normal >60.0 [facility] Comment on above: Result Comment: [facility]???s estimated glomerular filtration rate (eGFR) will [...] group of individuals. Performed By: #### L [id number] #### [facility] ([facility]) [address] [place] [address] Glucose [Mass/Vol] 91 mg/dL Normal 70-100 [facility] Comment on above: Performed By: #### L [id number] #### [facility] ([facility]) [address] [place] [address] Potassium [Moles/Vol] 3.9 mmol/L Normal 3.5-5.1 [facility] Comment on above: Performed By: #### L [id number] #### [facility] ([facility]) [address] [place] [address] Sodium [Moles/Vol] 135 mmol/L Low 136-145 [facility] Comment on above: Performed By: #### L [id number] #### [facility] ([facility]) [address] [place] [address] Urea nitrogen [Mass/Vol] 8 mg/dL Normal 7-25 [facility] Comment on above: Performed By: #### L [id number] #### [facility] ([facility]) [address] [place] [address] UREA NITROGEN/CREATININE (MASS RATIO) IN SER/PLAS 10.3 Normal [facility] Comment on above: Performed By: #### L [id number] #### [facility] ([facility]) [address] [place] [address] CBCon 11-22-2023 Erythrocyte distribution width (RBC) [Ratio] 15.9 % High 11.5-15.0 [facility] Comment on above: Performed By: #### L [id number] #### [facility] ([facility]) [address] [place] [address] ERYTHROCYTE MEAN CORPUSCULAR HEMOGLOBIN CONCENTRATION (G/DL) BY AUTOMATED 31.3 g/dL Low 32.0-35.0 [facility] Comment on above: Performed By: #### L [id number] #### [facility] ([facility]) [address] [place] [address] Hematocrit (Bld) [Volume fraction] 35.2 % Low 36.0-48.0 [facility] Comment on above: Performed By: #### L [id number] #### [facility] ([facility]) [address] [place] [address] Hemoglobin (Bld) [Mass/Vol] 11.0 g/dL Low 12.0-15.0 [facility] Comment on above: Performed By: #### L [id number] #### [facility] ([facility]) [address] [place] [address] MCH (RBC) [Entitic mass] 27.5 pg Normal 27.0-33.0 [facility] Comment on above: Performed By: #### L [id number] #### [facility] ([facility]) [address] [place] [address] MCV (RBC) [Entitic vol] 88.0 fL Normal 82.0-98.0 [facility] Comment on above: Performed By: #### L [id number] #### [facility] ([facility]) [address] [place] [address] PLATELETS (10*3/UL) IN BLOOD AUTOMATED COUNT 341 10*3/uL Normal 150-400 [facility] Comment on above: Performed By: #### L [id number] #### [facility] ([facility]) [address] [place] [address] RBC (Bld) [#/Vol] 4.00 10*6/uL Normal 3.80-5.00 [facility] Comment on above: Performed By: #### L [id number] #### [facility] HOSPITAL) [address] [place] [address] WBC (Bld) [#/Vol] 7.75 10*3/uL Normal 4.00-10.60 [facility] Comment on above: Performed By: #### L [id number] #### [facility] ([facility]) [address] [place] [address] DSon 11-22-2023 DS Admission Admitted 11/20/2023 for [...] Medications These medications were sent to [facility] - [place], [place] - [address] [place] [address] [place] [address], [facility] [address] acetaminophen 500 mg tablet Activity Normal activity as tolerated Diet Continue on the same type of diet and foods as you were eating before your admission. Drink plenty of water. Allergies Patient has no known allergies. Hospital Course Angie Watt is a 73 y.o. female with PMH of atrial fibrillation s/p ablation on amiodarone and eliquis, HTN, hypothyroidism, and sleep apnea and past surgical history of a cholecystectomy who presents to [facility] as a direct transfer from [facility] with diverticulitis. Pt had been having [...] hgb 11.5, otherwise wnl. Upon arrival to [facility], pt was started on a [...] future appointments. Test Results Pending At Discharge Normal [facility] 30on 11-21-2023 30 Daily Case Managemen [...] 11/20/23 1632 Dietary nutrition supplements Lunch; Liquacel; [place]; 2 packets; Oral Until discontinued Question Answer Comment Deliver with Lunch Select supplement: Liquacel flavor [place] Strength: 2 packets Route Oral 11/20/23 1631 11/20/23 1631 Dietary nutrition supplements TID; Resource Breeze; 8 oz; Oral Until discontinued Question Answer Comment Deliver with TID Select supplement: Resource Breeze Strength: 8 oz Route Oral 11/20/23 1631 Physician Expected Discharge Date: 11/23/2023 Discharge Delays: PT Six Click Score: 17 OT Six Click Score: PT Recommendations: OT Recommendations: New Consults: Normal [facility] BASIC METABOLIC PANELon 06-0 Anion gap [Moles/Vol] 11 mmol/L Normal 7-20 [facility] Comment on above: Performed By: #### L [id number] #### [facility] [address] [place] [address] Calcium [Mass/Vol] 8.6 mg/dL Normal 8.6-10.3 [facility] Comment on above: Performed By: #### L [id number] #### [facility] [address] [place] [address] Chloride [Moles/Vol] 102 mmol/L Normal 98-107 [facility] Comment on above: Performed By: #### L [id number] #### [facility] (BEAKER) [address] [place] [address] CO2 [Moles/Vol] 26 mmol/L Normal 21-31 [facility] Comment on above: Performed By: #### L [id number] #### [facility] [address] [place] [address] Creatinine [Mass/Vol] 0.75 mg/dL Normal 0.60-1.20 [facility] Comment on above: Performed By: #### L [id number] #### [facility] [address] [place] [address] GLOMERULAR FILTRATION RATE ML/MIN/1.73 SQ M.PREDICTED 85.1 mL/min/1.73m*2 Normal >60.0 [facility] Comment on above: Result Comment: [facility]???s estimated glomerular filtration rate (eGFR) will [...] individuals. Performed By: #### L [id number] #### [facility] ([facility]) [address] [place] [address] Glucose [Mass/Vol] 93 mg/dL Normal 70-100 [facility] Comment on above: Performed By: #### L [id number] #### [facility] ([facility]) [address] [place] [address] Potassium [Moles/Vol] 3.9 mmol/L Normal 3.5-5.1 [facility] Comment on above: Performed By: #### L [id number] #### [facility] ([facility]) [address] [place] [address] Sodium [Moles/Vol] 135 mmol/L Low 136-145 [facility] Comment on above: Performed By: #### L [id number] #### [facility] ([facility]) [address] [place] [address] Urea nitrogen [Mass/Vol] 8 mg/dL Normal 7-25 [facility] Comment on above: Performed By: #### L [id number] #### [facility] ([facility]) [address] [place] [address] UREA NITROGEN/CREATININE (MASS RATIO) IN SER/PLAS 10.7 Normal [facility] Comment on above: Performed By: #### L [id number] #### [facility] ([facility]) [address] [place] [address] CBCon 11-21-2023 Erythrocyte distribution width (RBC) [Ratio] 15.6 % High 11.5-15.0 [facility] Comment on above: Performed By: #### L [id number] #### [facility] ([facility]) [address] [place] [address] ERYTHROCYTE MEAN CORPUSCULAR HEMOGLOBIN CONCENTRATION (G/DL) BY AUTOMATED 31.7 g/dL Low 32.0-35.0 [facility] Comment on above: Performed By: #### L [id number] #### [facility] [address] [place] [address] Hematocrit (Bld) [Volume fraction] 34.7 % Low 36.0-48.0 [facility] Comment on above: Performed By: #### L [id number] #### [facility] ([facility]) [address] [place] [address] Hemoglobin (Bld) [Mass/Vol] 11.0 g/dL Low 12.0-15.0 [facility] Comment on above: Performed By: #### L [id number] #### [facility] ([facility]) [address] [place] [address] MCH (RBC) [Entitic mass] 27.4 pg Normal 27.0-33.0 [facility] Comment on above: Performed By: #### L [id number] #### [facility] ([facility]) [address] [place] [address] MCV (RBC) [Entitic vol] 86.5 fL Normal 82.0-98.0 [facility] Comment on above: Performed By: #### L [id number] #### [facility] ([facility]) [address] [place] [address] PLATELETS (10*3/UL) IN BLOOD AUTOMATED COUNT 349 10*3/uL Normal 150-400 [facility] Comment on above: Performed By: #### L [id number] #### [facility] ([facility]) [address] [place] [address] RBC (Bld) [#/Vol] 4.01 10*6/uL Normal 3.80-5.00 [facility] Comment on above: Performed By: #### L [id number] #### [facility] ([facility]) [address] [place] [address] WBC (Bld) [#/Vol] 7.22 10*3/uL Normal 4.00-10.60 [facility] Comment on above: Performed By: #### L [id number] #### [facility] ([facility]) [address] [place] [address] 30on 11-20-2023 30 Problem: Pain Goal: LTG-Verbalize [...] to address these barriers include . Normal [facility] 30 The patient is Moderately Stable [...] fall risk status, and pain status Normal [facility] CBCon 11-20-2023 Erythrocyte distribution width (RBC) [Ratio] 15.8 % High 11.5-15.0 [facility] Comment on above: Performed By: #### L [id number] #### [facility] ([facility]) [address] [facility] [place] [address] ERYTHROCYTE MEAN CORPUSCULAR HEMOGLOBIN CONCENTRATION (G/DL) BY AUTOMATED 31.9 g/dL Low 32.0-35.0 [facility] Comment on above: Performed By: #### L [id number] #### [facility] [address] [place] [address] Hematocrit (Bld) [Volume fraction] 36.1 % Normal 36.0-48.0 [facility] Comment on above: Performed By: #### L [id number] #### [facility] [address] [place] [address] Hemoglobin (Bld) [Mass/Vol] 11.5 g/dL Low 12.0-15.0 [facility] Comment on above: Performed By: #### L [id number] #### [facility] [address] [place] [address] MCH (RBC) [Entitic mass] 27.4 pg Normal 27.0-33.0 [facility] Comment on above: Performed By: #### L [id number] #### [facility] [address] [place] [address] MCV (RBC) [Entitic vol] 86.2 fL Normal 82.0-98.0 [facility] Comment on above: Performed By: #### L [id number] #### [facility] ([facility]) [address] [place] [address] PLATELETS (10*3/UL) IN BLOOD AUTOMATED COUNT 388 10*3/uL Normal 150-400 [facility] Comment on above: Performed By: #### L [id number] #### [facility] [address] [place] [address] RBC (Bld) [#/Vol] 4.19 10*6/uL Normal 3.80-5.00 [facility] Comment on above: Performed By: #### L [id number] #### [facility] ([facility]) [address] [place] [address] WBC (Bld) [#/Vol] 9.02 10*3/uL Normal 4.00-10.60 [facility] Comment on above: Performed By: #### L [id number] #### [facility] ([facility]) [address] [place] [address] COMPREHENSIVE METABOLIC PANE Nacho 11-20-2023 Albumin [Mass/Vol] 3.8 g/dL Normal 3.5-5.7 [facility] Comment on above: Performed By: #### L [id number] #### [facility] ([facility]) [address] [place] [address] ALP [Catalytic activity/Vol] 118 U/L High 34-104 [facility] Comment on above: Performed By: #### L [id number] #### [facility] ([facility]) [address] [place] [address] ALT [Catalytic activity/Vol] 19 U/L Normal 7-52 [facility] Comment on above: Performed By: #### L [id number] #### [facility] ([facility]) [address] [place] [address] Anion gap [Moles/Vol] 9 mmol/L Normal 7-20 [facility] Comment on above: Performed By: #### L [id number] #### [facility] ([facility]) [address] [place] [address] AST [Catalytic activity/Vol] 28 U/L Normal 13-39 [facility] Comment on above: Performed By: #### L [id number] #### [facility] ([facility]) [address] [place] [address] Bilirubin [Mass/Vol] 0.6 mg/dL Normal 0.3-1.0 [facility] Comment on above: Performed By: #### L [id number] #### [facility] ([facility]) [address] [place] [address] Calcium [Mass/Vol] 8.9 mg/dL Normal 8.6-10.3 [facility] Comment on above: Performed By: #### L [id number] #### [facility] [address] [place] [address] Chloride [Moles/Vol] 101 mmol/L Normal 98-107 [facility] Comment on above: Performed By: #### L [id number] #### [facility] [address] [place] [address] CO2 [Moles/Vol] 29 mmol/L Normal 21-31 [facility] Comment on above: Performed By: #### L [id number] #### [facility] ([facility]) [address] [place] [address] Creatinine [Mass/Vol] 0.75 mg/dL Normal 0.60-1.20 [facility] Comment on above: Performed By: #### L [id number] #### [facility] ([facility]) [address] [place] [address] GLOMERULAR FILTRATION RATE ML/MIN/1.73 SQ M.PREDICTED 85.1 mL/min/1.73m*2 Normal >60.0 [facility] Comment on above: Result Comment: [facility]???s estimated glomerular filtration rate (eGFR) will [...] group of individuals. Performed By: #### L [id number] #### [facility] [address] [place] [address] Glucose [Mass/Vol] 116 mg/dL High 70-100 [facility] Comment on above: Performed By: #### L [id number] #### [facility] [address] [place] [address] Potassium [Moles/Vol] 4.2 mmol/L Normal 3.5-5.1 [facility] Comment on above: Performed By: #### L [id number] #### [facility] ([facility]) [address] [place] [address] Protein [Mass/Vol] 7.0 g/dL Normal 6.0-8.3 [facility] Comment on above: Performed By: #### L [id number] #### [facility] ([facility]) [address] [place] [address] Sodium [Moles/Vol] 135 mmol/L Low 136-145 [facility] Comment on above: Performed By: #### L [id number] #### [facility] ([facility]) [address] [place] [address] Urea nitrogen [Mass/Vol] 12 mg/dL Normal 7-25 [facility] Comment on above: Performed By: #### L [id number] #### [facility] ([facility]) [address] [place] [address] UREA NITROGEN/CREATININE (MASS RATIO) IN SER/PLAS 16.0 Normal [facility] Comment on above: Performed By: #### L [id number] #### [facility] ([facility]) [address] [place] [address] CONSULTon 11-20-2023 CONSULT Clinical Nutrition Assessment: Name: Angie Watt Room: [address] [place] [address] Date: 1950 Date of Visit: 11/20/23 Admission [...] Last BM 11/18; c/o N/V/D 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 [...] (11/20/2023). 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, although reported that she has been [...] ideal body weight (59.1 kg) Calorie needs: 3026-9869 kcals/day based on Equation: 25-30 kcal/kg Protein [...] Hand Grasp: Moderate L Hand Grasp: Moderate (Client Service Professional strength not assessed by RD) Patient at risk for malnutrition according to hospital criteria, but does not meet the clinical characteristics per the Academy of Nutrition and Dietetics, and the [place] [employer] of Enteral and Parenteral Nutrition to [...] (magnesium, phosphorus, BMP) Contact the dietitian via [employer] chat 8A-4P Saturday through Saturday or call extension [phone]. For weekends & holidays, the dietitian can be reached via pager [phone] from 9A-3P. Unable to respond to [employer] chat messages on Saturday & . Normal [facility] HPon 11-20-2023 HP -- Attestation signed by Saida Lai MD at 11/21/2023 8:37 AM Attending Physician Statement I have discussed the case, including pertinent history and exam findings with Dr. Tanner, medical or surgical instrument maker and have personally seen the patient. I agree with the assessment, plan and orders as documented. [phone] pager [phone] phone [facility] General Surgery HISTORY & PHYSICAL Reason for Admission: diverticulitis History of Present Illness: Angie Watt is a 73 y.o. female with PMH of atrial fibrillation s/p ablation on amiodarone and eliquis, HTN, hypothyroidism, and sleep apnea and past surgical history of a cholecystectomy who presents to [facility] as a direct transfer from [facility] with diverticulitis. Pt had been having [...] Atrial fib (more content not included)... Normal [facility] LACTIC ACID, PLASMAon 2023 LACTATE (MMOL/L) IN SER/PLAS 1.2 mmol/L Normal 0.5-2.2 [facility] Comment on above: Performed By: #### L [id number] #### [facility] ([facility]) [address] [place] [address] NURSNOTEon 11-20-2023 NURSNOTE Bedside reporting done, per China RN and Maia RN No complaints at this time [facility] NURSNOTE Pt sits up at side o f bed, no c/o of pain, or SOB at this time Telemetry cont. On pt IV intact, no redness noted Pulse ox--98% on room air Pt. Up walking around in room for 10 min at 1830 pm [facility] NURSNOTE Pt up walking around in room, tolerates well , with walker. [facility] ULISESNOTTerry Lai notified th at we need admission orders. Notified via secure magnetU chat. [facility] NURSNOTE Pt arrived as a dire ct admission from [facility], no c/o of pain or SOB at this time Assessment completed Telemetry started on pt. Bed alarm on [facility] PHOSPHORUSon 11-20-2023 Magnesium [Mass/Vol] 2.5 mg/dL Normal 1.9-2.7 [facility] Comment on above: Performed By: #### L [id number] #### [facility] ([facility]) [address] [place] [address] Performed By: #### L [id number] #### [facility] ([facility] [address] [place] [address] PROTIME-INRon 11-20-2023 INR IN PPP BY COAGULATION ASSAY 1.27 High 0.90-1.10 [facility] Comment on above: Result Comment: ACCC [...] 1995;[id number]. Performed By: #### L [id number] #### [facility] ([facility]) [address] [place] [address] PROTHROMBIN TIME (PT) IN PPP BY COAGULATION ASSAY 15.8 Seconds High 12.3-14.8 [facility] Comment on above: Performed By: #### L [id number] #### [facility] ([facility]) [address] [place] [address] 36on 08-01-2023 36 Regarding echo performed on 06/27/2023: Echo is stable per Lissa Spencer CNP. I called patient and made her aware. She asked about her lab work. I told her we didn't have a copy of it in her chart. Labs were then obtained from [facility] portal and uploaded into her manager social media for Lissa's review. I told her I'd call her back if he didn't like the results. She thanked me and verbalized understanding. [facility] Orders Onlyon 06-25-2023 Orders Only [id number] Angie Watt 1950 F Date Provider Department Center 06/25/2023 Radha8DELFINA NELSON Family History Problem Relation Age of Onset Heart attack Father Atrial fibrillation Father Atrial fibrillation Sister Family Status - Relation Status Age at Father Sister [facility] Office Visiton 06-18-2023 Follow-up visit [id number] Angie Watt 1950 F Date Provider Department Center 06/18/2023 1596-LISSA SPENCER Family History Problem Relation Age of Onset Heart attack Father Atrial fibrillation Father Atrial fibrillation Sister Family Status - Relation Status Age at Father Sister Level of Service:18640 [place] OFFICE/OUTPATIENT ESTABLISHED MOD MDM 30 MIN Normal [facility] Orders Onlyon 02-20-2023 Orders Only [id number] Angie Watt 1950 F Date Provider Department Center 02/20/2023 VALENTE LYNN [facility] Family History Problem Relation Age of Onset Heart attack Father Atrial fibrillation Father Atrial fibrillation Sister Family Status - Relation Status Age at Father Sister Normal [facility] Covid-19 PCR (CVDTB)on 02-16 SARS-CoV-2 (COVID-19) RNA SP+probe Ql (Unsp spec) Not detected Normal NOT DETECTED [facility] Comment on above: Result Comment: When [...] for this test is supported by the Cable Mechanic of Health and Human Service's declaration that [...] used). Performed By: #### C VDTB #### [facility] [address] [address] [address] Maik Singleton BASIC METABOLIC PANELon 07-19 Calcium [Mass/Vol] 8.1 mg/dL Low 8.6-10.3 [facility] Comment on above: Order Comment: No: D o not add to previous draw Performed By: #### 1 0070, [id number] #### [facility] [address] [facility] [place] [address], [facility] Chloride [Moles/Vol] 99 mmol/L Normal 98-107 [facility] Comment on above: Order Comment: No: D o not add to previous draw Performed By: #### 1 69, 59150 #### [facility] [address] [place] [address], [place] CO2 [Moles/Vol] 27 mmol/L Normal 21-31 [facility] Comment on above: Order Comment: No: D o not add to previous draw Performed By: #### 1 69, 26338 #### [facility] [address] [place] [address], [place] Creatinine [Mass/Vol] 0.82 mg/dL Normal 0.60-1.20 [facility] Comment on above: Order Comment: No: D o not add to previous draw Performed By: #### 1 69, 70771 #### [facility] [address] [place] [address], [place] GFR/1.73 sq M.predicted among blacks MDRD (S/P/Bld) [Vol rate/Area] mL/min/{1.73_m2} Normal >60 [facility] Comment on above: Order Comment: No: D o not add to previous draw Performed By: #### 1 69, 62925 #### [facility] [address] [place] [address], [place] GFR/1.73 sq M.predicted among non-blacks MDRD (S/P/Bld) [Vol rate/Area] mL/min/{1.73_m2} Normal >60 [facility] Comment on above: Order Comment: No: D o not add to previous draw Performed By: #### 1 69, 18742 #### [facility] [address] [place] [address], [place] Glucose [Mass/Vol] 109 mg/dL High 70-100 [facility] Comment on above: Order Comment: No: D o not add to previous draw Performed By: #### 1 69, 70843 #### [facility] [address] [place] [address], [place] Potassium [Moles/Vol] 4.0 mmol/L Normal 3.5-5.1 [facility] Comment on above: Order Comment: No: D o not add to previous draw Performed By: #### 1 69, 75002 #### [facility] [address] [place] [id number], [facility] Sodium [Moles/Vol] 134 mmol/L Low 136-145 [facility] Comment on above: Order Comment: No: D o not add to previous draw Performed By: #### 1 69, 09498 #### [facility] [address] [place] [address], [facility] Urea nitrogen [Mass/Vol] 12 mg/dL Normal 7-25 [facility] Comment on above: Order Comment: No: D o not add to previous draw Performed By: #### 1 69, 93895 #### [facility] [address] CBC COMPLETE BLOOD COUNTon 0 - Erythrocyte distribution width (RBC) [Ratio] 15.5 % High 11.5-15.0 [facility] Comment on above: Order Comment: No: D o not add to previous draw Performed By: #### 5 0608 #### [facility] [address] [place] [address], [facility] Hematocrit (Bld) [Volume fraction] 36.9 % Normal 36.0-45.0 [facility] Comment on above: Order Comment: No: D o not add to previous draw Performed By: #### 5 0608 #### [facility] [address] [place] [id number], [facility] Hemoglobin (Bld) [Mass/Vol] 11.5 g/dL Low 12.0-15.0 [facility] Comment on above: Order Comment: No: D o not add to previous draw Performed By: #### 5 0608 #### [facility] [address] [place] [address], [facility] MCH (RBC) [Entitic mass] 27.1 pg Normal 27.0-33.0 [facility] Comment on above: Order Comment: No: D o not add to previous draw Performed By: #### 5 0608 #### [facility] [address] [place] [id number], [facility] MCHC (RBC) [Mass/Vol] 31.2 g/dL Low 32.0-35.0 [facility] Comment on above: Order Comment: No: D o not add to previous draw Performed By: #### 5 0608 #### [facility] [address] [place] [place] [address], [facility] MCV (RBC) [Entitic vol] 87.0 fL Normal 82.0-98.0 [facility] Comment on above: Order Comment: No: D o not add to previous draw Performed By: #### 5 0608 #### [facility] [address] [place] [address], [facility] Nucleated RBC/100 WBC (Bld) [Ratio] 0 % Normal 0-0 [facility] Comment on above: Order Comment: No: D o not add to previous draw Performed By: #### 5 0608 #### [facility] [address] [place] [id number], [facility] PLAT CNT 258 10*3/uL Normal 150-400 [facility] Comment on above: Order Comment: No: D o not add to previous draw Performed By: #### 5 0608 #### [facility] [address] [facility]. [place] [id number], [facility] RBC (Bld) [#/Vol] 4.24 10*6/uL Normal 3.80-5.00 [facility] Comment on above: Order Comment: No: D o not add to previous draw Performed By: #### 5 0608 #### [facility] [address] [place] [address], [facility] WBC (Bld) [#/Vol] 10.20 10*3/uL Normal 4.00-10.60 [facility] Comment on above: Order Comment: No: D o not add to previous draw Performed By: #### 5 0608 #### [facility] [address] [facility]. [address] MAGNESIUM BLOODon 08-10-2021 Magnesium [Mass/Vol] 2.2 mg/dL Normal 1.9-2.7 [facility] Comment on above: Order Comment: No: D o not add to previous draw Performed By: #### 1 0070, [id number] #### [facility] [address] APTTon 08-09-2021 aPTT Coag (Bld) [Time] 26.9 s Normal 25.0-35.0 [facility] Comment on above: Result Comment: ALL [...] THIS PURPOSE. Performed By: #### 5 6101, [id number] #### [facility] [address] [facility] [place] [address], [facility] CBC W/DIFFon 08-09-2021 ABS IMM GRANS 0.0 10*3/uL Normal 0.0-0.2 [facility] Comment on above: Performed By: #### 5 0103 #### [facility] [address] [facility] [place] [address], [facility] ABS NEUTROPHILS 5.1 10*3/uL Normal 1.6-7.6 [facility] Comment on above: Performed By: #### 5 0103 #### [facility] [address] [facility] [place] [address], [facility] Basophils (Bld) [#/Vol] 0.0 10*3/uL Normal 0.0-0.2 [facility] Comment on above: Performed By: #### 5 0103 #### [facility] [address] [place] [address], [facility] Basophils/100 WBC (Bld) 0.4 % Normal 0.0-1.0 [facility] Comment on above: Performed By: #### 5 0103 #### [facility] [address] [place] [address], [facility] Eosinophils (Bld) [#/Vol] 0.2 10*3/uL Normal 0.0-0.5 [facility] Comment on above: Performed By: #### 5 0103 #### [facility] [address] [place] [address], [facility] Eosinophils/100 WBC (Bld) 2.3 % Normal 0.0-6.0 [facility] Comment on above: Performed By: #### 5 0103 #### [facility] [address] [place] [address], [facility] Erythrocyte distribution width (RBC) [Ratio] 15.3 % High 11.5-15.0 [facility] Comment on above: Performed By: #### 5 0103 #### [facility] [address] [place] [address], [facility] Hematocrit (Bld) [Volume fraction] 37.4 % Normal 36.0-45.0 [facility] Comment on above: Performed By: #### 5 0103 #### [facility] [address] [place] [address], [facility] Hemoglobin (Bld) [Mass/Vol] 11.5 g/dL Low 12.0-15.0 [facility] Comment on above: Performed By: #### 5 0103 #### [facility] [address] [place] [address], [facility] IMMATURE GRANS 0.3 % Normal 0.0-1.0 [facility] Comment on above: Performed By: #### 5 0103 #### [facility] [address] [facility] [place] [address], [facility] Lymphocytes (Bld) [#/Vol] 1.1 10*3/uL Low 1.2-4.0 [facility] Comment on above: Performed By: #### 5 0103 #### [facility] [address] [facility] [place] [address], [facility] Lymphocytes/100 WBC (Bld) 16.1 % Low 20.0-45.0 [facility] Comment on above: Performed By: #### 5 3 #### [facility] [address] MCH (RBC) [Entitic mass] 26.9 pg Low 27.0-33.0 [facility] Comment on above: Performed By: #### 5 3 #### [facility] [address] MCHC (RBC) [Mass/Vol] 30.7 g/dL Low 32.0-35.0 [facility] Comment on above: Performed By: #### 5 3 #### [facility] [address] [place] [address], [facility] MCV (RBC) [Entitic vol] 87.4 fL Normal 82.0-98.0 [facility] Comment on above: Performed By: #### 5 3 #### [facility] [address] [place] [address], [facility] Monocytes (Bld) [#/Vol] 0.6 10*3/uL Normal 0.1-1.0 [facility] Comment on above: Performed By: #### 5 102 #### [facility] [address] [place] [address], [facility] MONOS 8.8 % Normal 5.0-12.0 [facility] Comment on above: Performed By: #### 102 #### [facility] [address] [facility] [address], [facility] Neutrophils/100 WBC (Bld) 72.1 % High 40.0-72.0 [facility] Comment on above: Performed By: #### 102 #### [facility] [address] [facility] [place] [address], [facility] Nucleated RBC/100 WBC (Bld) [Ratio] 0 % Normal 0-0 [facility] Comment on above: Performed By: #### 102 #### [facility] [address] [facility] [place] [address], [facility] PLAT CNT 271 10*3/uL Normal 150-400 [facility] Comment on above: Performed By: #### 102 #### [facility] [address] [facility] [place] [address], [facility] RBC (Bld) [#/Vol] 4.28 10*6/uL Normal 3.80-5.00 [facility] Comment on above: Performed By: #### 102 #### [facility] [address] [facility] [place] [address], [facility] WBC (Bld) [#/Vol] 7.02 10*3/uL Normal 4.00-10.60 [facility] Comment on above: Performed By: #### 102 #### [facility] [address] COMP METABOLIC PANELon 08-09 Albumin [Mass/Vol] 3.8 g/dL Normal 3.5-5.7 [facility] Comment on above: Performed By: #### 0 012 #### [facility] [address] [facility] [place] [address], [facility] ALKALINE PHOSPH 140 IU/L High 34-104 [facility] Comment on above: Performed By: #### 0 0121 #### [facility] [address] [place] [address], [place] ALT [Catalytic activity/Vol] 13 U/L Normal 7-52 [facility] Comment on above: Performed By: #### 0 0121 #### [facility] [address] [place] [address], [place] AST [Catalytic activity/Vol] 17 U/L Normal 13-39 [facility] Comment on above: Performed By: #### 0 0121 #### [facility] [address] [place] [address], [place] Bilirubin [Mass/Vol] 0.5 mg/dL Normal 0.3-1.0 [facility] Comment on above: Performed By: #### 0 0121 #### [facility] [address] [place] [address], [place] Calcium [Mass/Vol] 8.7 mg/dL Normal 8.6-10.3 [facility] Comment on above: Performed By: #### 0 0121 #### [facility] [address] [place] [address], [place] Chloride [Moles/Vol] 104 mmol/L Normal 98-107 [facility] Comment on above: Performed By: #### 0 0121 #### [facility] [address] [place] [address], [place] CO2 [Moles/Vol] 28 mmol/L Normal 21-31 [facility] Comment on above: Performed By: #### 0 0121 #### [facility] [address] [place] [address], [place] Creatinine [Mass/Vol] 0.74 mg/dL Normal 0.60-1.20 [facility] Comment on above: Performed By: #### 0 0121 #### [facility] [address] [place] [address], [place] GFR/1.73 sq M.predicted among blacks MDRD (S/P/Bld) [Vol rate/Area] mL/min/{1.73_m2} Normal >60 [facility] Comment on above: Performed By: #### 0 0121 #### [facility] [address] [place] [address], [facility] GFR/1.73 sq M.predicted among non-blacks MDRD (S/P/Bld) [Vol rate/Area] mL/min/{1.73_m2} Normal >60 [facility] Comment on above: Performed By: #### 0 0121 #### [facility] [address] [place] [address], [facility] Glucose [Mass/Vol] 116 mg/dL High 70-100 [facility] Comment on above: Performed By: #### 0 0121 #### [facility] [address] [place] [address], [facility] Potassium [Moles/Vol] 3.9 mmol/L Normal 3.5-5.1 [facility] Comment on above: Performed By: #### 0 0121 #### [facility] [address] [place] [id number], [facility] Protein [Mass/Vol] 6.4 g/dL Normal 6.0-8.3 [facility] Comment on above: Performed By: #### 0 0121 #### [facility] [address] [place] [address], [facility] Sodium [Moles/Vol] 138 mmol/L Normal 136-145 [facility] Comment on above: Performed By: #### 0 0121 #### [facility] [address] [place] [address], [facility] Urea nitrogen [Mass/Vol] 10 mg/dL Normal 7-25 [facility] Comment on above: Performed By: #### 0 0121 #### [facility] [address] [place] [id number] Cardiovascular Lab Reporton 08-09-2021 Cardiovascular Lab Report [facility] Patient Name: Angie Watt [facility] MR #: [id number] Physician: Charli Pulido MD Department of Service Date: 08/09/2021 Medicine Birthdate: 1950 Division of Room #: [id number] Cardiology Adult Cardiovascular Services [facility] [address] [place] [id number] Cardiovascular Laboratory Report ATRIAL FIBRILLATION ABLATION PROCEDURE [...] in Afib. Esophagus was mapped using the [employer] 3D mapping software with quadripolar catheter and [...] perform (more content not included)... Normal [facility] POC GLUCOSE LABon 08-09-2021 Glucose [Mass/Vol] 107 mg/dL High 70-100 [facility] Comment on above: Performed By: #### 8 5499 #### [facility] [address] [place] [address], [facility] PROTHROMBIN TIMEon INR Coag (PPP) [Relative time] 1.01 {INR} Normal 0.91-1.16 [facility] Comment on above: Result Comment: ACCC P RECOMMENDED INR FOR WARFARIN THERAPY ------- ------- CONDITION INR PROPHYLAXIS OF VENOUS THROMBOSIS 2-3 (HIGH-RISK SURGERY) TREATMENT OF VENOUS THROMBOSIS 2-3 TREATMENT OF PULMONARY EMBOLISM 2-3 PREVENTION OF SYSTEMIC EMBOLISM: 2-3 ACUTE MYOCARDIAL INFARCTION TISSUE HEART VALVES VALVULAR HEART DISEASE ATRIAL FIBRILLATION RECURRENT SYSTEMIC EMBOLISM MECHANICAL HEART VALVE 2.5-3.5 FROM: ORAL ANTICOAGULANTS. MECHANISM OF ACTION, CLINICAL EFFECTIVENESS, AND OPTIMAL THERAPEUTIC RANGE. CHEST 1995;108:231S-246S. Performed By: #### 5 6101, [id number] #### [facility] [address] [place] [address], [facility] PT Coag (PPP) [Time] 13.3 s Normal 12.3-14.8 [facility] Comment on above: Result Comment: ALL RESULTS MUST BE INTERPRETED WITH RESPECT TO BLOOD DRAWING ARTIFACT OR DILUTION ERROR OF ANTICOAGULANT AT THE TIME OF SAMPLING. Performed By: #### 5 4611, [id number] #### [address] [address], [facility] CTA CHESTon 08-08-2021 CTA CHEST [facility] Department of Radiology [address] [place] [id number] ======== Patient Name: ANGIE WATT : 1950 Sex: F Age: Race: White Pt. Location: Patient Status: O Ordered Date: 07/27/2021 1:35:00 PM Completed Date: 08/08/2021 12:58 PM Requesting Provider: CHARLI PULIDO Attending Provider: CHARLI PULIDO Report Copy To: KERRI SMITH Signs & Symptoms: I48.0 Paroxysmal atrial fibrillation I10 History: [place] patient will need labs need to schedule [...] examination. Electronically signed: Audrey Umana. Transcribed by: [email or web address], User Resident: Electronically Signed by: AUDREY UMANA @ 08/08/2021 03:05 PM Normal [facility] Comment on above: Order Comment: Gavin Ablation 08/09/21 Covid-19 PCR (CVDTB)on 05-18 SARS-CoV-2 (COVID-19) RNA SP+probe Ql (Unsp spec) Not detected Normal NOT DETECTED [facility] Comment on above: Result Comment: This test is not yet approved or cleared by the [place] FDA. When there are no FDA-approved or cleared tests available, and other criteria are met, FDA can make tests available under an emergency access mechanism called an Emergency Use Authorization (EUA). The EUA for this test is supported by the [employer] of Health and Human Service's (HHS's) declaration [...] consistent with SARS-CoV-2. Performed By: #### C [facility] #### [facility] Laboratory [address] [place] [address] Dr. Maik Singleton Vital Signs Date Time Vital Sign Value Performing Clinician Gustabo burris 01-21-2024 14:18-0400 Blood Pressure Location [employer] [facility] 01-21-2024 14:18-0400 Diastolic blood pressure 78 mm[Hg] Pasha Energie [employer] [facility] 01-21-2024 14:18-0400 Heart rate 72 /min Pasha PETERL [facility] 01-21-2024 14:18-0400 Respiratory rate 16 /min Pasha PETERL [facility] 01-21-2024 14:18-0400 Systolic blood pressure 136 mm[Hg] Pasha BACH [facility] Encounters Encounter Date Encounter Type Care Provider Facility Start: 02-11-2024 ambulatory SAIDA LAI [facility] Start: 01-29-2024 [facility]: 01-29-2024 Evaluation and manag ement of inpatient IRMA SIMMONSLEY [facility] Start: 01-28-2024 End: 02-02-2024 Evaluation and management of inpatient KERRI SMITH [facility] Start: 01-21-2024 End: 01-21-2024 ambulatory Pasha BACH Facility:[facility] Start: 01-21-2024 End: 01-21-2024 Patient encounter procedure Pasha BACH [facility] Start: 12-24-2023 ambulatory RIZWANA CONNORS [facility] Start: 11-26-2023 ambulatory Pasha BACH Facility:[facility] Start: 11-21-2023 Evaluation and manag ement of inpatient [facility] Start: 11-20-2023 Evaluation and manag ement of inpatient ROHIT DELCID [facility] Start: 11-20-2023 End: 11-22-2023 Evaluation and management of inpatient EDUARDO WALKER [facility] Start: 06-18-2023 End: 06-18-2023 ambulatory LISSA [facility] Start: 03-07-2022 End: 03-07-[address] KERRI SMITH Facility: Start: 08-09-2021 End: 08-10-2021 ambulatory KERRI SMITH Facility:[facility] Start: 06-18-2021 Encounter for preprocedural laboratory examination CHARLI PULIDO [facility] Start: 06-14-2021 End: 06-14-[address] DOCTOR DIXON Facility:[facility] Start: 06-12-2021 End: 06-12-2021 ambulatory CHARLI PULIDO Facility:[facility] Start: 06-12-2021 End: 06-12-2021 Encounter for preprocedural laboratory examination CHARLI PULIDO Facility:[facility] Procedures Date Procedure Procedure Detail Performing Clinician Cardiac radiofrequen cy ablation using ultrasound guidance Pasha BACH Cholecystectomy Pasha BACH Immunizations Immunization Date Immunization Notes Care Provider Fa cili 04-11-2022 SARS-CoV-2 mRNA (lxgivxgrhdt-uggg-qfecu se) vaccine Pasha BACH [facility] Comment on above: Result Comment: 2023: [id number] 02-14-2022 SARS-CoV-2 mRNA (hfrwpixtcnl-zpcs-vyfwy se) vaccine Pasha BACH [facility] Comment on above: Result Comment: 2023: [id number] Payers Date Payer Category Payer Medicare [id number] 1959 Private Health Insurance [id number] 1950 Unknown [id number] [id number] 1950 Unknown [id number] [id number] 1950 Unknown [id number] [id number] [id number] 1950 Unknown [id number] [id number] [id number] 1950 Unknown [id number] 2.16.8 [id number] Social History Date Type Detail Facility Start: 01-21-2024 Tobacco smoking status Ex-smoker (fi nding) [facility] Tobacco smoking status Never Fishe [facility] Sex Assigned At Female [facility] Functional Status Date Assessment Result Facility 01-21-2024 Functional Status N/A [facility] Clinical Notes 06-14-2021 to 02-12-2024 Note Date & Type Note Facility 02-12-2024 Note RCRI=2 points Class III Risk 10.1 % 30-day risk of , MD, or cardiac arrest From a cardiac perspective pt may proceed with sigmoid colectomy, she is a low to moderate risk for a mod-high risk abdominal surgery/ Robotic sigmoid colectomy . She may hold Eliquis for 2-3 days prior and resume post op, with the knowledge that there is a risk for stroke with holding anticoagulation. Please monitor hemodynamics carefully and prevent any major fluid shifts. Rizwana Connors [facility] Cardiology Available 7a-5pm via [employer] Chat Pager [phone] [facility] 02-11-2024 Note Subjective Patient ID: Angie Watt is a 73 y.o. female who presents for Post-op (Angie is here today for post op visit: Stricture of colon, s/p 01/31/24 colonoscopy ). HPI 73 years old morbid obesity white female with sigmoid colon stenosis. She has the symptoms of partial bowel obstruction for more than 3 months. The symptom is worsening. She is not tolerating to solid diet. She has more than 20 pounds weight loss. Review of Systems Constitutional: Negative. HENT: Negative. Respiratory: Negative. Cardiovascular: Negative. Gastrointestinal: Positive for diarrhea. Genitourinary: Negative. Neurological: Negative. Objective Visit Vitals BP 166/76 (BP Location: Left arm, Patient Position: Sitting) Pulse 69 Temp 36.9 ???C (98.4 ???F) Physical Exam Constitutional: Appearance: She is obese. HENT: Head: Atraumatic. Cardiovascular: Rate and Rhythm: Normal rate. Pulmonary: Effort: Pulmonary effort is normal. Abdominal: General: Abdomen is flat. Palpations: Abdomen is soft. Musculoskeletal: Cervical back: Neck supple. Neurological: Mental Status: She is alert and oriented to person, place, and time. Assessment/Plan Sigmoid colon stenosis Robotic sigmoid colectomy was offered to the patient. Patient need cardiac clearance No diagnosis found. No orders of the defined types were placed in this encounter. No results found for this or any previous visit (from the past 36 hour(s)). No follow-ups on file. [facility] 02-10-2024 Note General Surgery Offi ce/Clinic Note Chief Complaint consultation for diverticulitis HPI Staff 73 year old female presents on consultation from Dr. Smith for diverticulitis. Presented to [facility] ED 11/19/23 with complaint of abdominal pain and nausea. CT ABD with sigmoid diverticulitis with concern for possible megacolon. Patient was transferred to [place] with symptomatic care provided during hospital stay. Never had colonoscopy in the past. On Eliquis for a.fib. Reports two additional episodes of abdominal pain, constipation and nausea since discharge from [place]. Both episodes she presented to [facility] ED with CT's completed both times. History of Present Illness 73 yo female with h/o atrial fibrillation, on Eliquis, DMII, htn, hyperlipidemia, hypothyroidism, KYLEE, chronic diverticular disease, referred for recurrent diverticulitis with possible diverticular stricture verses colonic mass; patient has had problems since October; was in [facility] ED 11/19/23 had abd/pelvic ct scan with evidence of sigmoid diverticulitis and dilated proximal colon; transferred to [facility]; reportedly treated with antibiotics and discharged; patient has had 2 other episodes of pain, nausea, poor po intake; repeat ct scans with diverticular disease and thickening of distal descending colon and proximal sigmoid colon, with stranding; dilated colon proximally; patient reports only able to tolerate liquids; soft bms, no blood; intermittent pain, no fevers; has completed multiple course of antibiotics, 3 hospitalizations; no previous colonoscopy; abdominal operations significant for cholecystectomy; on Eliquis daily, no asa or NSAIDs, no tobacco use; no fmhx of GI malignancy or IBD. Review of Systems PHQ Score Initial Depression Screen Score: 0 SCORE ROS - Provider Constitutional: no fever, no sweats, no weight loss. Eyes: no glasses, no blurred vision, no visual loss. ENMT: no dentures, no hoarseness, no swallowing difficulties, no hearing loss, no ear infection(s), no nose bleeds. Cardiovascular: normal blood pressure, no chest pain, regular heartbeat, no heart murmur. Respiratory: no shortness of breath, no cough, no asthma, no wheezing. Gastrointestinal: no nausea, no vomiting, no diarrhea, no constipation, no blood in stool, no change in bowel habits, no abdominal pain, no hepatitis. Genitourinary: no kidney stones, no urine infection, no dysuria. Musculoskeletal: no pain, no weakness. Skin: no changing moles, no rash, no skin lumps. Neurologic: no seizures, no epilepsy, no headache. Psychiatric: no emotional or psychiatric problem. Heme/Lymph: no bleeding problems, no anemia, no blood clots, no transfusions. Allergy/Immunologic: no swollen lymph nodes/glands, no IV drug abuse. Other: Additional ROS info: Except as noted in the above Review of Systems and in the History of Present Illness, all other systems have been reviewed and are negative or noncontributory. Physical Exam Vitals & Measurements HR: 72(Peripheral) RR: 16 BP: 136/78 HT: 67 in HT: 170 cm WT: 129 kg WT: 283.8 lb BMI: 44.64 HEENT: normal conjunctiva, sclera clear, no scleral icterus, EOM intact, PERRLA, oral mucosa moist without lesions. Neck: trachea midline, no mass, symmetric, no thyromegaly or nodules, no adenopathy Respiratory: lungs CTA, respirations non labored. Cardiovascular: regular rate and rhythm, no murmur, no pedal edema or varicosities. Gastrointestinal: obese,soft, non distended, mild tenderness, mid and left lower quadrant, no peritoneal signs no masses, no palpable hernias, diastasis recti yes, no hepatosplenomegaly; normal bs Lymphatic: no cervical adenopathy, no supraclavicular adenopathy. Musculoskeletal: normal gait, digits and nails without infection, nodes, cyanosis, clubbing. Skin: no rashes, no lesions, no ulcers, no subcutaneous nodules, induration. Psychiatric/Neuro: oriented to time, place, person, judgement normal, affect appropriate for age, insight intact, no focal deficits. Tests: labs reviewed, x-rays reviewed, review of old records completed , Discussed surgical options, risks, and possible complications with patient. Assessment/Plan 1. Abnormal computed tomography of sigmoid colon (R93.3: Abnormal findings on diagnostic imaging of other parts of digestive tract) diverticular stricture verses colonic mass/cancer; partial obstruction; will attempt flexible sigmoidoscopy under anesthesia for further evaluation/biopsy; fleets enema am of procedure; patient high risk for any surgical intervention, will require tertiary referral to Colorectal surgeon if an operation is required, which seems likely; informed consent obtained. 2. Sigmoid diverticulitis (K57.32: Diverticulitis of large intestine without perforation or abscess without bleeding) see # 1 Follow-up No qualifying data available Problem List/Past Medical History Ongoing Abnormal computed tomography of sigmoid colon Anxiety Atrial fibrillation Atrial flutter BMI 40.0-44.9, ad (more content not included)... [facility] Comment on above: Result Comment: Elec tronically Signed By: ISREAL CARLSON, Pasha Anderson\Date and Time Signed: 02/10/24 12:58 EDT 02-02-2024 Note Attestation signed by Clyde Wayne MD at 02/02/2024 6:59 PM GC: I saw this patient. I personally performed the critical/king portions that determines the level of service. I was directly involved in the management and treatment plan of the patient. I reviewed resident Dmitry Stewart MD 's note and agree with the documentation [facility] General Surgery DAILY PROGRESS NOTE Subjective Today patient states she is feeling significantly better since her colonoscopy on 01/30. Patient now denies abdominal discomfort. She is up independently to the bathroom with her cane. She reports she is passing gas, but no BM yet. She is tolerating clears very well. She has been advanced to a regular diet, but reports that she is sticking to clears because anything more will get stuck due to her narrowed sigmoid colon. She is currently on 2L o2 because she forgot her CPAP at home, but is regularly on room air. Patient denies SOB, CP, FRANKLIN, N/V. Objective Vitals: Vitals: 02/02/24 0810 BP: 119/68 Pulse: 63 Resp: 16 Temp: 37.3 ???C (99.1 ???F) SpO2: 95% No intake/output data recorded. No intake/output data recorded. Physical Exam Physical Exam Constitutional: General: She is not in acute distress. HENT: Head: Normocephalic and atraumatic. Nose: No congestion. Eyes: General: Right eye: No discharge. Left eye: No discharge. Cardiovascular: Rate and Rhythm: Normal rate and regular rhythm. Pulmonary: Effort: No respiratory distress. Abdominal: General: There is no distension. Palpations: There is no mass. Tenderness: There is no abdominal tenderness. Hernia: No hernia is present. Musculoskeletal: General: No swelling. Skin: Coloration: Skin is not jaundiced. Neurological: General: No focal deficit present. Labs: Results from last 7 days Lab Units 01/28/242114 WBC AUTO 10*3/uL 6.51 HEMOGLOBIN g/dL 11.2* HEMATOCRIT % 36.7 PLATELETS AUTO 10*3/uL 437* Results from last 7 days Lab Units 01/28/242114 SODIUM mmol/L 139 POTASSIUM mmol/L 3.5 CO2 mmol/L 27 BUN mg/dL 6* CREATININE mg/dL 0.59* Results from last 7 days Lab Units 01/28/242114 INR 1.21* Medications: amiodarone, 100 mg, oral, Daily [Held by provider] apixaban, 5 mg, oral, q12h JESSY carvedilol, 6.25 mg, oral, BID with meals dilTIAZem CD, 180 mg, oral, Daily doxepin, 35 mg, oral, Nightly levothyroxine, 50 mcg, oral, Daily pantoprazole, 40 mg, oral, Daily sennosides-docusate sodium, 1 tablet, oral, BID Imaging: XR abdomen 1 view Narrative: XR ABDOMEN 1 VIEW 01/29/2024 9:38 AM CLINICAL INDICATIONS: Abdominal pain, constipation. COMPARISON: CT abdomen pelvis 01/29/2024 FINDINGS: Residual oral contrast identified in the rectosigmoid colon, descending colon and diverticula. Stable distended nondilated colonic loops. No air-filled dilated small bowel loops. Impression: Nonobstructive bowel gas pattern. Residual contrast in the left half of the colon. Electronically signed: Jose Maria Longo. CT abdomen pelvis w IV contrast Narrative: CT ABDOMEN PELVIS W IV CONTRAST 01/29/2024 12:01 AM SIGNS AND SYMPTOMS: Acute nonlocalized abdominal pain, small bowel obstruction, abdominal mass TECHNIQUE: Multidetector ct axial images of the abdomen and pelvis were obtained with IV contrast. Multiplanar reformats were performed and viewed on a separate workstation and reviewed to further define anatomy and possible pathology. Appropriate CT dose lowering techniques were utilized. COMPARISON: 11/19/2023 FINDINGS: Lower Chest: Lung bases clear. Hepatobiliary: Subcapsular segment 4 lesion measures 0.7 cm (series 4 image 34) too small to characterize. Gallbladder surgically absent. No biliary dilation. Pancreas: Pancreas unremarkable. No pancreatic ductal dilation. Spleen: Within normal limits. Adrenals: Within normal limits. Kidneys, ureters, bladder: Kidneys are unremarkable. No collecting system dilation. Urinary bladder is underdistended. Gastrointestinal: Small and large bowel are normal in caliber. Positive oral contrast present. Colonic diverticulosis. Circumferential wall thickening of the distalmost descending colon/proximal sigmoid colon with ill-defined adjacent edema. Region corresponds to transition point on prior CT. No free air. Vasculature: Infrarenal abdominal aortic aneurysm measures 3.6 cm. Fusiform dilation of the left common iliac artery up to 2.8 cm. Lymph Nodes: Enlarged 1.1 cm arlene hepatis lymph node (series 4 image 50). Enlarged para-aortic lymph node, 1.1 cm (series 4 image 61). Reproductive Organs: Uterus unremarkable. No abnormal pelvic mass. Musculoskeletal: Vertebral body heights maintained. 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 Impression: *Circum (more content not included)... [facility] 02-02-2024 Note Hospital Medicine Discharge Summary Final Discharge Diagnosis: abdominal pain with concern for malignancy based on CT scan Admission Diagnosis: Abdominal pain [R10.9] Hospital course: Angie Watt is a 73 y.o. female with a significant past surgical history of Cholecystectomy seven years ago, and a PMH of A-Fib s/p ablation on amiodarone and Eliquis, Hypertension, Sleep Apnea, and Anxiety. She has been sent from [facility] where she was admitted on January 26 for abdominal discomfort for few days. She says that she has not been passing stools for the past four days, but she is passing gas today. She denies abdominal pain, nausea, vomiting, or diarrhea. Patient has tried bene fiber, colace, and prune juice with some help along with the Linzesses that she has been using for the past two months. She had similar episodes of abdominal discomfort in November 2023. She was admitted in ER and discharged on antibiotics. She had another similar episode in December 2023 for constipation for 3 days and ER admission with subsequent discharge. This episode is similar to previous episodes. Patent denies blood in stools, dark tarry stools, although she does endorse that the stool caliber has decreased significantly. Ct A/P done and showed: Circumferential wall thickening of the distal descending and proximal sigmoid colon, highly concerning for malignancy. Colonoscopy recommended. Enlarged retroperitoneal and arlene hepatis lymph nodes, suspicious for metastatic disease. Segment 4 hepatic lesion, too small to characterize. Infrarenal abdominal aortic aneurysm, 3.6 cm. Fusiform dilation of the left common iliac artery up to 2.8 cm. Patient had colonoscopy on 81: Sigmoid and descending colon edema and stenosis from 30 cm to 50 cm from anal verge. Sigmoid colon polyp at 50 cm from anal verge, cold biopsy. Pancolon diverticulosis. Patient to be discharged today and to follow-up with general surgery on pathology report next few days. Patient able to tolerate more liquid diet than solid food Surgical, Invasive or Diagnostic Procedures Done During Admission: colonoscopy and biopsy Consultations During Admission: General Surgery Dear Dr. Nuzhat MD, Vass is advised to follow up with you within 1-2 weeks. Items to follow up in ambulatory setting: None Follow-up with: General Surgery Scheduled appointments: No future appointments. Your medication list CONTINUE taking these medications Instructions Last Dose Given Next Dose Due amiodarone 100 mg tablet Commonly known as: Pacerone TAKE 1 TABLET BY MOUTH ONCE DAILY DIRECTED. apixaban 5 mg tablet Commonly known as: Eliquis carvedilol 6.25 mg tablet Commonly known as: Coreg dilTIAZem ER 180 mg 24 hr capsule Commonly known as: Tiazac doxepin 10 mg capsule Commonly known as: SINEquan levothyroxine 50 mcg tablet Commonly known as: Synthroid, Levoxyl Linzess 72 mcg capsule Generic drug: linaCLOtide omeprazole [address] capsule Commonly known as: PriLOSEC STOP taking these medications acetaminophen 500 mg tablet Commonly known as: Tylenol irbesartan 300 mg tablet Commonly known as: Avapro Angie has No Known Allergies. Disposition: Home or Self Care () Discharge Condition: Stable Code Status: Full Code Diagnostic Results Hematology: Results from last 7 days Lab Units 01/28/24 2115 WBC AUTO 10*3/uL 6.51 HEMOGLOBIN g/dL 11.2* HEMATOCRIT % 36.7 MCV fL 87.4 PLATELETS AUTO 10*3/uL 437* INR 1.21* Chemistry: Results from last 7 days Lab Units 01/28/24 2115 SODIUM mmol/L 139 POTASSIUM mmol/L 3.5 CHLORIDE mmol/L 105 CO2 mmol/L 27 BUN mg/dL 6* CREATININE mg/dL 0.59* GLUCOSE mg/dL 84 CALCIUM mg/dL 8.5* Results from last 7 days Lab Units 01/28/24 2115 AST U/L 12* ALT U/L 11 ALK PHOS U/L 109* BILIRUBIN TOTAL mg/dL 0.5 LIPASE U/L 7* Test Results Pending At Discharge: Pending Labs Order Current Status Histology - tissue exam Collected (01/31/24 1715) Blood culture, peripheral #1 Preliminary result Blood culture, peripheral #2 Preliminary result Diet at the time of discharge: regular diet and clear liquids, advance as tolerated Activity: Patient currently has no discharge activity orders Objective Blood pressure 119/68, pulse 63, temperature 37.3 ???C (99.1 ???F), temperature source Oral, resp. rate 16, height 1.676 m (5' 6 ), weight 124 kg (273 lb 4.8 oz), SpO2 95 %. General: Alert and oriented x3. Cardiology: Normal rate, regular rhythm. Lungs: Clear to auscultation, no wheezes, rales or rhonchi, symmetric air entry. Abdomen: Soft, non tender, non distended. Extremities: No pitting edema. Neurology: No focal neuro deficit noted. Total time for discharge - review of data, exam, discussion with providers and care-team, med-rec and orders, arranging follow up, counseling of patient and/or family and documentation was 60 minutes. Signed Louie Espitia MD Hospit (more content not included)... [facility] 02-01-2024 Note Attestation signed by Clyde Wayne MD at 02/02/2024 8:21 AM GC: I saw this patient. I personally was physically present for the critical/king portions that determines the level of service. I was directly involved in the management and treatment plan of the patient. I reviewed resident Italo Stewart MD 's note and agree with the documentation [facility] General Surgery DAILY PROGRESS NOTE Subjective S/p colonoscopy 01/30. Tolerated well. VALENTINE SEARS. Objective Vitals: Vitals: 02/01/24 0759 BP: 124/86 Pulse: 82 Resp: 20 Temp: 36.9 ???C (98.4 ???F) SpO2: 98% I/O last 3 completed shifts: In: 666 (5.5 mL/kg) [I.V.:666 (5.5 mL/kg)] Out: 1 (0 mL/kg) [Blood:1] Weight: 122.1 kg No intake/output data recorded. Physical Exam Physical Exam Constitutional: General: She is not in acute distress. HENT: Head: Normocephalic and atraumatic. Nose: No congestion. Eyes: General: Right eye: No discharge. Left eye: No discharge. Cardiovascular: Rate and Rhythm: Normal rate and regular rhythm. Pulmonary: Effort: No respiratory distress. Abdominal: General: There is no distension. Palpations: There is no mass. Tenderness: There is no abdominal tenderness. Hernia: No hernia is present. Musculoskeletal: General: No swelling. Skin: Coloration: Skin is not jaundiced. Neurological: General: No focal deficit present. Labs: Results from last 7 days Lab Units 01/28/242114 WBC AUTO 10*3/uL 6.51 HEMOGLOBIN g/dL 11.2* HEMATOCRIT % 36.7 PLATELETS AUTO 10*3/uL 437* Results from last 7 days Lab Units 01/28/242114 SODIUM mmol/L 139 POTASSIUM mmol/L 3.5 CO2 mmol/L 27 BUN mg/dL 6* CREATININE mg/dL 0.59* Results from last 7 days Lab Units 01/28/242114 INR 1.21* Medications: amiodarone, 100 mg, oral, Daily [Held by provider] apixaban, 5 mg, oral, q12h JESSY carvedilol, 6.25 mg, oral, BID with meals dilTIAZem CD, 180 mg, oral, Daily doxepin, 35 mg, oral, Nightly levothyroxine, 50 mcg, oral, Daily pantoprazole, 40 mg, oral, Daily sennosides-docusate sodium, 1 tablet, oral, BID Imaging: XR abdomen 1 view Narrative: XR ABDOMEN 1 VIEW 01/29/2024 9:38 AM CLINICAL INDICATIONS: Abdominal pain, constipation. COMPARISON: CT abdomen pelvis 01/29/2024 FINDINGS: Residual oral contrast identified in the rectosigmoid colon, descending colon and diverticula. Stable distended nondilated colonic loops. No air-filled dilated small bowel loops. Impression: Nonobstructive bowel gas pattern. Residual contrast in the left half of the colon. Electronically signed: Jose Maria Longo. CT abdomen pelvis w IV contrast Narrative: CT ABDOMEN PELVIS W IV CONTRAST 01/29/2024 12:01 AM SIGNS AND SYMPTOMS: Acute nonlocalized abdominal pain, small bowel obstruction, abdominal mass TECHNIQUE: Multidetector ct axial images of the abdomen and pelvis were obtained with IV contrast. Multiplanar reformats were performed and viewed on a separate workstation and reviewed to further define anatomy and possible pathology. Appropriate CT dose lowering techniques were utilized. COMPARISON: 11/19/2023 FINDINGS: Lower Chest: Lung bases clear. Hepatobiliary: Subcapsular segment 4 lesion measures 0.7 cm (series 4 image 34) too small to characterize. Gallbladder surgically absent. No biliary dilation. Pancreas: Pancreas unremarkable. No pancreatic ductal dilation. Spleen: Within normal limits. Adrenals: Within normal limits. Kidneys, ureters, bladder: Kidneys are unremarkable. No collecting system dilation. Urinary bladder is underdistended. Gastrointestinal: Small and large bowel are normal in caliber. Positive oral contrast present. Colonic diverticulosis. Circumferential wall thickening of the distalmost descending colon/proximal sigmoid colon with ill-defined adjacent edema. Region corresponds to transition point on prior CT. No free air. Vasculature: Infrarenal abdominal aortic aneurysm measures 3.6 cm. Fusiform dilation of the left common iliac artery up to 2.8 cm. Lymph Nodes: Enlarged 1.1 cm arlene hepatis lymph node (series 4 image 50). Enlarged para-aortic lymph node, 1.1 cm (series 4 image 61). Reproductive Organs: Uterus unremarkable. No abnormal pelvic mass. Musculoskeletal: Vertebral body heights maintained. 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 Impression: *Circumferential wall thickening of the distal descending and proximal sigmoid colon, highly concerning for malignancy. Colonoscopy recommended. *Enlarged retroperitoneal and arlene hepatis lymph nodes, suspicious for metastatic disease. *Segment 4 hepatic lesion, too small to characterize. *Infrarenal abdominal aortic aneurysm, 3.6 cm. Fusiform dilation of the left common iliac artery up to 2. (more content not included)... [facility] 02-01-2024 Note Hospital Medicine Daily Progress Note - 02/01/2024 11:38 AM; Room: [address] [place] [address] Admission: 01/28/2024 6:04 PM; Length of stay: 4 days THE HOSPITALIST TEAM PREFERS TO USE [employer] CHAT FOR COMMUNICATION 7AM-7PM. IF I DO NOT RESPOND WITHIN 15 MINUTES, PLEASE PAGE ME/CALL THROUGH THE [employer]. FROM 7PM-7AM, PLEASE PAGE [phone](COVR) Code Status: Full Code Barriers to Discharge: concern for abdominal malignancy and inability to eat Expected Discharge Date: TBD Discharge Destination: home Overview Patient is seen for evaluation and management of abdominal pain Subjective seen today in her room, still has a lot of concern about her oral intake Physical Exam Constitutional: Appearance: I no acute distress HENT: Head: Normocephalic and atraumatic. Cardiovascular: Rate and Rhythm: Normal rate and regular rhythm. Pulses: Normal pulses. Heart sounds: Normal heart sounds. Pulmonary: Effort: Pulmonary effort is normal. Breath sounds: Normal breath sounds. Abdominal: General: Bowel sounds are normal. Palpations: Abdomen is soft. Tenderness: There is no abdominal tenderness. Musculoskeletal: Right lower leg: trace Edema present. Left lower leg: trace Edema present. Neurological: Mental Status: She is alert and oriented to person, place, and time. Psychiatric: Mood and Affect: Mood normal. Behavior: Behavior normal. Visit Vitals BP 124/86 Pulse 82 Temp 36.9 ???C (98.4 ???F) Resp 20 Intake/Output Summary (Last 24 hours) at 02/01/2024 1138 Last data filed at 01/31/2024 1800 Gross per 24 hour Intake 665.97 ml Output 1 ml Net 664.97 ml Estimated body mass index is 43.43 kg/m??? as calculated from the following: Height as of this encounter: 1.676 m (5' 6 ). Weight as of this encounter: 122 kg (269 lb 1.6 oz). Active Inpatient Problems Principal Problem: Intraabdominal mass Active Problems: Hypertensive disorder Paroxysmal atrial fibrillation (CMS/HCC) Abdominal pain Stricture of colon (CMS/HCC) Assessment and Plan Abdominal Discomfort with Concern for Malignancy - Abdominal CT on 01/29/2024 reviewed. - colonoscopy 01/30 : Sigmoid and descending colon edema and stenosis from 30 cm to 50 cm from anal verge. Sigmoid colon polyp at 50 cm from anal verge, cold biopsy. Pancolon diverticulosis. Awaiting pathology report Paroxysmal Atrial Fibrillation - S/p ablation on 08/09/2021 - Patient currently in normal sinus rhythm. - Continue amiodarone and patient to resume Eliquis once verified no further procedures needed Hypertension - BP currently well controlled on current medication regimen of carvedilol 6.25 mg bid, Diltiazem CD 180 mg every day, and losartan 100 mg every day. - Will continue to monitor. Hypothyroidism - TSH 7.261 on 06/14/2023. - continue Synthroid home dose for now Scheduled Meds amiodarone, 100 mg, oral, Daily [Held by provider] apixaban, 5 mg, oral, q12h JESSY carvedilol, 6.25 mg, oral, BID with meals dilTIAZem CD, 180 mg, oral, Daily doxepin, 35 mg, oral, Nightly levothyroxine, 50 mcg, oral, Daily pantoprazole, 40 mg, oral, Daily sennosides-docusate sodium, 1 tablet, oral, BID Pertinent Investigations Hematology: Results from last 7 days Lab Units 01/28/24 2115 WBC AUTO 10*3/uL 6.51 HEMOGLOBIN g/dL 11.2* HEMATOCRIT % 36.7 MCV fL 87.4 PLATELETS AUTO 10*3/uL 437* INR 1.21* Chemistry: Results from last 7 days Lab Units 01/28/24 2115 SODIUM mmol/L 139 POTASSIUM mmol/L 3.5 CHLORIDE mmol/L 105 CO2 mmol/L 27 BUN mg/dL 6* CREATININE mg/dL 0.59* GLUCOSE mg/dL 84 CALCIUM mg/dL 8.5* Results from last 7 days Lab Units 01/28/24 2115 AST U/L 12* ALT U/L 11 ALK PHOS U/L 109* BILIRUBIN TOTAL mg/dL 0.5 LIPASE U/L 7* Results from last 7 days Lab Units 01/31/24 1606 POCT GLUCOSE mg/dL 91 Historical Values: (Includes values prior to this admission) No results found for: PREALBUMIN , TSH , T3FREE , FREET4 , CORTISOL , FEV1 , POC8TDH , DLCO , RVSP , HDL , LDL Lab Results Component Value Date CEA 2.0 01/30/2024 Imaging XR abdomen 1 view Narrative: XR ABDOMEN 1 VIEW 01/29/2024 9:38 AM CLINICAL INDICATIONS: Abdominal pain, constipation. COMPARISON: CT abdomen pelvis 01/29/2024 FINDINGS: Residual oral contrast identified in the rectosigmoid colon, descending colon and diverticula. Stable distended nondilated colonic loops. No air-filled dilated small bowel loops. Impression: Nonobstructive bowel gas pattern. Residual contrast in the left half of the colon. Electronically signed: Jose Maria Longo. CT abdomen pelvis w IV contrast Narrative: CT ABDOMEN PELVIS W IV CONTRAST 01/29/2024 12:01 AM SIGNS AND SYMPTOMS: Acute nonlocalized abdominal pain, small bowel obstruction, abdominal mass TECHNIQUE: Multidetector ct axial images of the abdomen and pelvis were obtained with IV contrast. Multiplanar reformats were performed and viewed on a separate workstat (more content not included)... [facility] 01-31-2024 Note Patient: Angie Watt Procedure Summary Date: 01/31/24 Room / Location: [facility] OPERATING ROOM 01 / [facility] Operating Room Anesthesia Start: 162 Anesthesia Stop: 173 Procedure: COLONOSCOPY Diagnosis: Stricture of colon (CMS/HCC) (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]) Surgeons: Saida Lai MD Responsible Provider: Reagan Ortiz MD Anesthesia Type: MAC ASA Status: 3 Anesthesia Type: MAC Vitals Value Taken Time BP 138/76 01/31/24 1747 Temp 36.8 ???C (98.2 ???F) 01/31/24 1732 Pulse 63 01/31/24 1748 Resp 18 01/31/24 1748 SpO2 96 % 01/31/241747 Vitals shown include unvalidated device data. Anesthesia Post Evaluation Patient location during evaluation: PACU Patient participation: complete - patient participated Level of consciousness: awake Pain score: 1 Pain management: adequate Airway patency: patent Cardiovascular status: acceptable Respiratory status: acceptable Patient is hemodynamically stable and is able to be discharged from PACU per anesthesia protocol. No notable events documented. [facility] 01-31-2024 Note Patient: Angie Watt Procedure Summary Date: 01/31/24 Room / Location: [facility] OPERATING ROOM 01 / [facility] Operating Room Anesthesia Start: 1628 Anesthesia Stop: Procedure: COLONOSCOPY Diagnosis: Stricture of colon (CMS/HCC) (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]) Surgeons: Saida Lai MD Responsible Provider: Reagan Ortiz MD Anesthesia Type: MAC ASA Status: 3 Anesthesia Post Transport Note Transport to: PACU O2 Route: room air Patient Monitor: direct observation Transport: uneventful Patient condition is: stable [facility] 01-31-2024 Note Patient: Angie Watt Procedure Information Date/Time: 01/31/24 1530 Procedure: COLONOSCOPY Location: [facility] OPERATING ROOM 01 / [facility] Operating Room Surgeons: Saida Lai MD Past Medical History: Diagnosis Date Abnormal ECG Arrhythmia Atrial fibrillation (CMS/HCC) Hypertension Hypothyroidism Paroxysmal atrial fibrillation (CMS/HCC) 05/15/2022 Sleep apnea Relevant Problems Cardio (+) Hypertensive disorder (+) Paroxysmal atrial fibrillation (CMS/HCC) (+) Persistent atrial fibrillation (CMS/HCC) ECHO 2021 - EF 55% Clinical information reviewed: Tobacco Allergies Meds Med Hx Surg Hx Fam Hx Physical Exam Airway Mallampati: II TM distance: >3 FB Neck ROM: full Cardiovascular - normal exam Dental - normal exam Pulmonary - normal exam Abdominal (+) obese Anesthesia Plan ASA 3 MAC The patient is not a current smoker. Patient was not previously instructed to abstain from smoking on day of procedure. Patient did not smoke on day of procedure. intravenous induction Anesthetic plan and risks discussed with patient. Plan discussed with CAA. Additional Equipment Requests [facility] 01-31-2024 Note 01/31/24 3157 Admission Assessment Questions Verify insurance with patient Yes (Medicare/[employer]ign[employer]) Do you understand medical disease or what brought you into the hospital? Yes Who is your current PCP? Kerri Smith MD Can I schedule a follow up appointment for you at the time of discharge? Yes Do you understand why you are taking your current medications? Yes Are you taking your medications as prescribed? Yes Did patient provide teach back? No Pharmacy Bedside Delivery Status Interested Does the patient have a embedded case manager assigned to them through their insurance? No Living Arrangement (Current/Prior to Hospitalization) Private residence;Home self care (lives with Daughter China Rosales in 1 story house, has cats, Son lives nearby) Does the patient have history of HHC or SNF? No Assistive Device Cane;Walker;Raised toilet seat;Grab bars;Other (Comment) (has Shower Chair & CPAP Machine) Patient's goal for discharge return Home, no needs Was patient reminded that goal for discharge is 11am? Yes Does the patient have transportation at discharge? Yes (Daughter) Type of Residence Private residence Is PT/OT appropriate? No (denies recent falls or current mobility issues) Is PT/OT ordered? No Is SW consult appropriate? No Is SW consult ordered? No Do you understand the benefits of MyChart? Yes Were you able to send link and activate MyChart? Yes (email link sent to: [email or web address]) Screen completed with patient & daughter China present at bedside. Await medical stability : ?weekend dc pending results of today's Scope, Colonoscopy today, Nyasia on hold. Dc Plan : return Home, no needs. Daughter will transport home; Agreeable to iMeds. [facility] 01-31-2024 Note Attestation signed by Saida Lai MD at 01/31/2024 7:02 PM Attending Physician Statement I have discussed the case, including pertinent history and exam findings with Dr. Caruso, medical or surgical instrument maker and have personally seen the patient. I agree with the assessment, plan and orders as documented. [phone] pager [phone] phone [facility] General Surgery DAILY PROGRESS NOTE Subjective No acute events overnight. Completed bowel prep yesterday. Patient notes significant relief of abdominal pain after having multiple bowel movements. Denies any nausea, vomiting, fever, chills, chest pain, shortness of breath. Afebrile, vital stable overnight. On room air. Objective Vitals: Vitals: 01/31/24 0822 BP: 128/73 Pulse: 65 Resp: 20 Temp: 36.9 ???C (98.4 ???F) SpO2: 98% I/O last 3 completed shifts: In: 546.3 (4.3 mL/kg) [I.V.:546.3 (4.3 mL/kg)] Out: - (0 mL/kg) Weight: 128.2 kg No intake/output data recorded. Physical Exam Physical Exam Constitutional: General: She is not in acute distress. HENT: Head: Normocephalic and atraumatic. Nose: No congestion. Eyes: General: Right eye: No discharge. Left eye: No discharge. Cardiovascular: Rate and Rhythm: Normal rate and regular rhythm. Pulmonary: Effort: No respiratory distress. Abdominal: General: There is no distension. Palpations: There is no mass. Tenderness: There is no abdominal tenderness. Hernia: No hernia is present. Musculoskeletal: General: No swelling. Skin: Coloration: Skin is not jaundiced. Neurological: General: No focal deficit present. Labs: Results from last 7 days Lab Units 01/28/242114 WBC AUTO 10*3/uL 6.51 HEMOGLOBIN g/dL 11.2* HEMATOCRIT % 36.7 PLATELETS AUTO 10*3/uL 437* Results from last 7 days Lab Units 01/28/242114 SODIUM mmol/L 139 POTASSIUM mmol/L 3.5 CO2 mmol/L 27 BUN mg/dL 6* CREATININE mg/dL 0.59* Results from last 7 days Lab Units 01/28/242114 INR 1.21* Medications: amiodarone, 100 mg, oral, Daily [Held by provider] apixaban, 5 mg, oral, q12h JESSY carvedilol, 6.25 mg, oral, BID with meals dilTIAZem CD, 180 mg, oral, Daily doxepin, 35 mg, oral, Nightly levothyroxine, 50 mcg, oral, Daily pantoprazole, 40 mg, oral, Daily sennosides-docusate sodium, 1 tablet, oral, BID Imaging: XR abdomen 1 view Narrative: XR ABDOMEN 1 VIEW 01/29/2024 9:38 AM CLINICAL INDICATIONS: Abdominal pain, constipation. COMPARISON: CT abdomen pelvis 01/29/2024 FINDINGS: Residual oral contrast identified in the rectosigmoid colon, descending colon and diverticula. Stable distended nondilated colonic loops. No air-filled dilated small bowel loops. Impression: Nonobstructive bowel gas pattern. Residual contrast in the left half of the colon. Electronically signed: Jose Maria Longo. CT abdomen pelvis w IV contrast Narrative: CT ABDOMEN PELVIS W IV CONTRAST 01/29/2024 12:01 AM SIGNS AND SYMPTOMS: Acute nonlocalized abdominal pain, small bowel obstruction, abdominal mass TECHNIQUE: Multidetector ct axial images of the abdomen and pelvis were obtained with IV contrast. Multiplanar reformats were performed and viewed on a separate workstation and reviewed to further define anatomy and possible pathology. Appropriate CT dose lowering techniques were utilized. COMPARISON: 11/19/2023 FINDINGS: Lower Chest: Lung bases clear. Hepatobiliary: Subcapsular segment 4 lesion measures 0.7 cm (series 4 image 34) too small to characterize. Gallbladder surgically absent. No biliary dilation. Pancreas: Pancreas unremarkable. No pancreatic ductal dilation. Spleen: Within normal limits. Adrenals: Within normal limits. Kidneys, ureters, bladder: Kidneys are unremarkable. No collecting system dilation. Urinary bladder is underdistended. Gastrointestinal: Small and large bowel are normal in caliber. Positive oral contrast present. Colonic diverticulosis. Circumferential wall thickening of the distalmost descending colon/proximal sigmoid colon with ill-defined adjacent edema. Region corresponds to transition point on prior CT. No free air. Vasculature: Infrarenal abdominal aortic aneurysm measures 3.6 cm. Fusiform dilation of the left common iliac artery up to 2.8 cm. Lymph Nodes: Enlarged 1.1 cm arlene hepatis lymph node (series 4 image 50). Enlarged para-aortic lymph node, 1.1 cm (series 4 image 61). Reproductive Organs: Uterus unremarkable. No abnormal pelvic mass. Musculoskeletal: Vertebral body heights maintained. 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 Impression: *Circumferential wall thickening of the distal descending and proximal sigmoid colon, highly concerning for malignancy. Colonosc (more content not included)... [facility] 01-31-2024 Note Hospital Medicine Daily Progress Note - 01/31/2024 8:21 AM; Room: [address] [place] [address] Admission: 01/28/2024 6:04 PM; Length of stay: 3 days THE HOSPITALIST TEAM PREFERS TO USE [employer] CHAT FOR COMMUNICATION 7AM-7PM. IF I DO NOT RESPOND WITHIN 15 MINUTES, PLEASE PAGE ME/CALL THROUGH THE [employer]. FROM 7PM-7AM, PLEASE PAGE [phone](COVR) Code Status: Full Code Barriers to Discharge: Colonoscopy today, Eliquis Held Expected Discharge Date: 1 day Discharge Destination: home Overview Patient is seen for evaluation and management of constipation with abdominal CT concerning for metastatic colon cancer. Subjective Ms. Angie Watt is a 73 year old female who was admitted from [facility] with a chief complaint of more than a week of generalized abdominal discomfort, bloating, and nausea. Patient has a past medical history of paroxysmal atrial fibrillation with prior ablation (08/09/21), hypertension, sleep apnea (compliant with CPAP at home), hypothyroidism, anxiety, and prior cholecystectomy. She had an abdominal CT which showed progressive chronic distention and an area of narrowing and wall thickening in the descending/proximal sigmoid colon with a partial colonic obstruction questionable mass also as 3.1 x 3.2 cm stable abdominal aortic aneurysm and bilateral common iliac aneurysms. Today patient states she is feeling significantly better due to colonoscopy prep emptying her bowels. Patient now denies abdominal discomfort and constipation. She is scheduled for a colonoscopy later today. Review of Systems: Constitutional: Negative for chills, fevers, lightheadedness. HENT: Negative for eye pain, nose pain, throat pain. Respiratory: Negative for apnea, cough, choking, chest tightness, SOB. Cardiovascular: Positive for bilateral leg swelling. Negative for chest pain, palpitations. Gastrointestinal: Negative for abdominal pain, nausea, vomiting, diarrhea, and constipation. Genitourinary: Negative for dysuria and hematuria. Musculoskeletal: Negative for muscle pain, back pain, gait disturbance. Neurological: Negative for seizures, syncope, numbness, headaches. Physical Exam Visit Vitals BP 135/80 Pulse 77 Temp 36.8 ???C (98.2 ???F) Resp 18 No intake or output data in the 24 hours ending 01/31/24 0821 Physical Exam Constitutional: Appearance: She is obese. HENT: Head: Normocephalic and atraumatic. Cardiovascular: Rate and Rhythm: Normal rate and regular rhythm. Pulses: Normal pulses. Heart sounds: Normal heart sounds. Pulmonary: Effort: Pulmonary effort is normal. Breath sounds: Normal breath sounds. Abdominal: General: Bowel sounds are normal. There is distension. Palpations: Abdomen is soft. Tenderness: There is no abdominal tenderness. Musculoskeletal: Right lower le+ Edema present. Left lower le+ Edema present. Neurological: Mental Status: She is alert and oriented to person, place, and time. Psychiatric: Mood and Affect: Mood normal. Behavior: Behavior normal. Estimated body mass index is 45.63 kg/m??? as calculated from the following: Height as of this encounter: 1.676 m (5' 6 ). Weight as of this encounter: 128 kg (282 lb 11.2 oz). Active Inpatient Problems Principal Problem: Intraabdominal mass Active Problems: Hypertensive disorder Paroxysmal atrial fibrillation (CMS/HCC) Abdominal pain Stricture of colon (CMS/HCC) Assessment and Plan Abdominal Discomfort with Concern for Malignancy - Patient denies abdominal discomfort and constipation today due to relief provided by colonoscopy bowel preparation. - She is scheduled for colonoscopy later today. - Abdominal CT on 01/29/2024 reviewed. - Mrs. Watt is able to have bowel movements and denies blood in her stool. Paroxysmal Atrial Fibrillation - S/p ablation on 08/09/2021 - Patient currently in normal sinus rhythm. - Continue amiodarone and will defer to general surgery for when to restart Eliquis. Hypertension - BP currently well controlled on current medication regimen of carvedilol 6.25 mg bid, Diltiazem CD 180 mg every day, and losartan 100 mg every day. - Will continue to monitor. Hypothyroidism - TSH 7.261 on 06/14/2023. - Encourage patient to obtain standing thyroid studies outpatient. Insomnia due to Anxiety - Resolved - Patient with history of anxiety currently being treated with Doxepin. - Ms. Watt is compliant with CPAP use at home, but does not have CPAP in hospital. - Patient states she slept really well last night due to having decreased anxiety and abdominal discomfort. - Will continue to monitor and can consider addition of ramelton prn if needed. VTE Prophylaxis: Will start AFTER PROCEDURE Scheduled Meds amiodarone, 100 mg, oral, Daily [Held by provider] apixaban, 5 mg, oral, q12h JESSY carvedilol, 6.25 mg, oral, BID with meals dilTIAZem CD, 180 mg, oral, Daily doxepin, 35 mg, oral, Nightly levothyroxine, 50 mcg, oral, Daily beltran (more content not included)... [facility] 01-30-2024 Note Spiritual Care Note Patient name: Angie Watt Age: 73 y.o. Room: [address] [place] [address]- Angie has a good attitude but expressed frustration due to having to wait and advocate for appropriate care causing repeated trips to the hospital for the same issues. This situation is exasperating because she said she cannot improve her situation without surgery. 01/30/24 1500 Clinical Encounter Type Visited With Patient Type of Visit Initial visit Last Visit Date 01/30/24 Patient Spiritual Care Encounters Spiritual Care Assessment Hopeful;Frustrated Pastoral Intervention Emotional support Response Encouraged;Hopeful [facility] 01-30-2024 Note Hospital Medicine Daily Progress Note - 01/30/2024 9:02 AM; Room: [address] [place] [address] Admission: 01/28/2024 6:04 PM; Length of stay: 2 days THE HOSPITALIST TEAM PREFERS TO USE [employer] CH[employer] FOR COMMUNICATION 7AM-7PM. IF I DO NOT RESPOND WITHIN 15 MINUTES, PLEASE PAGE ME/CALL THROUGH THE [employer]. FROM 7PM-7AM, PLEASE PAGE [phone](COVR) Code Status: Full Code Barriers to Discharge: IV fluids, Need to restart OAC Expected Discharge Date: 1 day Discharge Destination: home Overview Patient is seen for evaluation and management of constipation with abdominal CT concerning for metastatic colon cancer. Subjective Ms. Angie Watt is a 73 year old female who was admitted from [facility] with a chief complaint of more than a week of generalized abdominal discomfort, bloating, and nausea. Patient has a past medical history of paroxysmal atrial fibrillation with prior ablation (08/09/21), hypertension, sleep apnea (compliant with CPAP at home), hypothyroidism, anxiety, and prior cholecystectomy. She had an abdominal CT which showed progressive chronic distention and an area of narrowing and wall thickening in the descending/proximal sigmoid colon with a partial colonic obstruction questionable mass also as 3.1 x 3.2 cm stable abdominal aortic aneurysm and bilateral common iliac aneurysms. Today, patient states she is feeling bloated with mild abdominal discomfort when she is unable to pass gas. She states she has had 1 small BM this morning as well as 1 small BM yesterday. She describes the abdominal discomfort as occurring 4-5 time per day. Patient expresses anxiety about uncertainty of future treatment plans and states this is preventing her from sleeping at night. Review of Systems: Constitutional: Negative for chills, fevers, lightheadedness. HENT: Negative for eye pain, nose pain, throat pain. Respiratory: Negative for apnea, cough, choking, chest tightness, SOB. Cardiovascular: Positive for bilateral leg swelling. Negative for chest pain, palpitations. Gastrointestinal: Positive for abdominal discomfort and constipation. Negative for abdominal pain, nausea, vomiting, and diarrhea. Genitourinary: Negative for dysuria and hematuria. Musculoskeletal: Negative for muscle pain, back pain, gait disturbance. Neurological: Negative for seizures, syncope, numbness, headaches. Physical Exam Visit Vitals BP 136/72 Pulse 65 Temp 36.9 ???C (98.4 ???F) Resp 16 Intake/Output Summary (Last 24 hours) at 01/30/2024 0902 Last data filed at 01/29/20241999 Gross per 24 hour Intake 546.25 ml Output -- Net 546.25 ml Physical Exam Constitutional: Appearance: Normal appearance. She is obese. HENT: Head: Normocephalic and atraumatic. Cardiovascular: Rate and Rhythm: Normal rate and regular rhythm. Pulses: Normal pulses. Heart sounds: S1 normal and S2 normal. Pulmonary: Effort: Pulmonary effort is normal. Breath sounds: Normal breath sounds. Abdominal: General: Abdomen is scaphoid. Bowel sounds are normal. There is distension. Palpations: Abdomen is soft. Tenderness: There is abdominal tenderness in the left upper quadrant. Musculoskeletal: Right lower le+ Edema present. Left lower le+ Edema present. Neurological: Mental Status: She is alert and oriented to person, place, and time. Psychiatric: Mood and Affect: Mood is anxious. Behavior: Behavior normal. Estimated body mass index is 45.84 kg/m??? as calculated from the following: Height as of this encounter: 1.676 m (5' 6 ). Weight as of this encounter: 129 kg (284 lb). Active Inpatient Problems Principal Problem: Intraabdominal mass Active Problems: Hypertensive disorder Paroxysmal atrial fibrillation (CMS/HCC) Abdominal pain Assessment and Plan Abdominal Discomfort with Concern for Malignancy - Patient has 5/10 pain on deep palpation of LUQ of abdomen. - CT abdomen 01/29/24 showed circumferential wall thickening of the distal descending and proximal sigmoid colon, highly concerning for malignancy as well as a segment 4 hepatic lesion, too small to characterize. - Patient has patent infrarenal abdominal aortic aneurysm measuring 3.6 cm and fusiform dilation of the left common iliac artery up to 2.8 cm. - Patient able to have small bowel movements and denies blood in her stool. - Will consult GI to determine colonoscopy preparation. Chronic HFpEF NYHA III? - Compensated - Per EP study from outpatient cardiology note, elevated LA filling pressures 07/2021. - Patient denies knowledge of HF diagnosis at this time. - EF 55% per TTE 08/09/2021 with moderately enlarged LA and mildly enlarged RA. - Previously euvolemic, now presenting with bilateral LE edema. - Patient has prior standing order for repeat TTE, encourage her to obtain outpatient. Paroxysmal Atrial Fibrillation - S/p ablation on 08/09/2021 - Patient currently in normal sinus rhythm. - Continue amiodarone and will defer to (more content not included)... [facility] 01-30-2024 Note Attestation signed by Saida Lai MD at 01/31/2024 10:05 AM Attending Physician Statement I have discussed the case, including pertinent history and exam findings with Dr. Stewart, medical or surgical instrument maker and have personally seen the patient. I agree with the assessment, plan and orders as documented. See the full colonoscopy on January 31, 2024. [phone] pager [phone] phone [facility] General Surgery DAILY PROGRESS NOTE Subjective NAEON, AFVSS. Passed small BM yesterday, continues to pass flatus. Abdomen soft, nontender. Objective Vitals: Vitals: 01/30/24 0827 BP: 136/72 Pulse: 65 Resp: 16 Temp: 36.9 ???C (98.4 ???F) SpO2: 96% I/O last 3 completed shifts: In: 1174.2 (9.1 mL/kg) [I.V.:1174.2 (9.1 mL/kg)] Out: - (0 mL/kg) Weight: 128.8 kg No intake/output data recorded. Physical Exam Physical Exam Constitutional: General: She is not in acute distress. HENT: Head: Normocephalic and atraumatic. Nose: No congestion. Eyes: General: Right eye: No discharge. Left eye: No discharge. Cardiovascular: Rate and Rhythm: Normal rate and regular rhythm. Pulmonary: Effort: No respiratory distress. Abdominal: General: There is no distension. Palpations: There is no mass. Tenderness: There is no abdominal tenderness. Hernia: No hernia is present. Musculoskeletal: General: No swelling. Skin: Coloration: Skin is not jaundiced. Neurological: General: No focal deficit present. Labs: Results from last 7 days Lab Units 01/28/24 2115 WBC AUTO 10*3/uL 6.51 HEMOGLOBIN g/dL 11.2* HEMATOCRIT % 36.7 PLATELETS AUTO 10*3/uL 437* Results from last 7 days Lab Units 01/28/24 2115 SODIUM mmol/L 139 POTASSIUM mmol/L 3.5 CO2 mmol/L 27 BUN mg/dL 6* CREATININE mg/dL 0.59* Results from last 7 days Lab Units 01/28/245 INR 1.21* Medications: amiodarone, 100 mg, oral, Daily [Held by provider] apixaban, 5 mg, oral, q12h JESSY carvedilol, 6.25 mg, oral, BID with meals dilTIAZem CD, 180 mg, oral, Daily doxepin, 35 mg, oral, Nightly levothyroxine, 50 mcg, oral, Daily pantoprazole, 40 mg, oral, Daily sennosides-docusate sodium, 1 tablet, oral, BID Imaging: XR abdomen 1 view Narrative: XR ABDOMEN 1 VIEW 01/29/2024 9:38 AM CLINICAL INDICATIONS: Abdominal pain, constipation. COMPARISON: CT abdomen pelvis 01/29/2024 FINDINGS: Residual oral contrast identified in the rectosigmoid colon, descending colon and diverticula. Stable distended nondilated colonic loops. No air-filled dilated small bowel loops. Impression: Nonobstructive bowel gas pattern. Residual contrast in the left half of the colon. Electronically signed: Jose Maria Longo. CT abdomen pelvis w IV contrast Narrative: CT ABDOMEN PELVIS W IV CONTRAST 01/29/2024 12:01 AM SIGNS AND SYMPTOMS: Acute nonlocalized abdominal pain, small bowel obstruction, abdominal mass TECHNIQUE: Multidetector ct axial images of the abdomen and pelvis were obtained with IV contrast. Multiplanar reformats were performed and viewed on a separate workstation and reviewed to further define anatomy and possible pathology. Appropriate CT dose lowering techniques were utilized. COMPARISON: 11/19/2023 FINDINGS: Lower Chest: Lung bases clear. Hepatobiliary: Subcapsular segment 4 lesion measures 0.7 cm (series 4 image 34) too small to characterize. Gallbladder surgically absent. No biliary dilation. Pancreas: Pancreas unremarkable. No pancreatic ductal dilation. Spleen: Within normal limits. Adrenals: Within normal limits. Kidneys, ureters, bladder: Kidneys are unremarkable. No collecting system dilation. Urinary bladder is underdistended. Gastrointestinal: Small and large bowel are normal in caliber. Positive oral contrast present. Colonic diverticulosis. Circumferential wall thickening of the distalmost descending colon/proximal sigmoid colon with ill-defined adjacent edema. Region corresponds to transition point on prior CT. No free air. Vasculature: Infrarenal abdominal aortic aneurysm measures 3.6 cm. Fusiform dilation of the left common iliac artery up to 2.8 cm. Lymph Nodes: Enlarged 1.1 cm arlene hepatis lymph node (series 4 image 50). Enlarged para-aortic lymph node, 1.1 cm (series 4 image 61). Reproductive Organs: Uterus unremarkable. No abnormal pelvic mass. Musculoskeletal: Vertebral body heights maintained. 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 Impression: *Circumferential wall thickening of the distal descending and proximal sigmoid colon, highly concerning for malignancy. Colonoscopy recommended. *Enlarged retroperitoneal and arlene hepatis lymph nodes, suspicious for metastatic disease. *Segment 4 hep (more content not included)... [facility] 01-29-2024 Note Attestation signed by Saida Lai MD at 01/31/2024 10:04 AM Attending Physician Statement I have discussed the case, including pertinent history and exam findings with Dr. Stewart, medical or surgical instrument maker and have personally seen the patient. I agree with the assessment, plan and orders as documented. Proceed for colonoscopy on January 31, 2024. [phone] pager [phone] phone [facility] General Surgery DAILY PROGRESS NOTE Subjective NAEON, AFVSS. Passing BM and flatus. Abdomen soft, nontender. Objective Vitals: Vitals: 01/29/24 1517 BP: 149/73 Pulse: 73 Resp: 14 Temp: 36.9 ???C (98.4 ???F) SpO2: 100% I/O last 3 completed shifts: In: 450.4 (3.5 mL/kg) [I.V.:450.4 (3.5 mL/kg)] Out: - (0 mL/kg) Weight: 128.8 kg I/O this shift: In: 177.5 [I.V.:177.5] Out: - Physical Exam Physical Exam Constitutional: General: She is not in acute distress. HENT: Head: Normocephalic and atraumatic. Nose: No congestion. Eyes: General: Right eye: No discharge. Left eye: No discharge. Cardiovascular: Rate and Rhythm: Normal rate and regular rhythm. Pulmonary: Effort: No respiratory distress. Abdominal: General: There is no distension. Palpations: There is no mass. Tenderness: There is no abdominal tenderness. Hernia: No hernia is present. Musculoskeletal: General: No swelling. Skin: Coloration: Skin is not jaundiced. Neurological: General: No focal deficit present. Labs: Results from last 7 days Lab Units 01/28/242114 WBC AUTO 10*3/uL 6.51 HEMOGLOBIN g/dL 11.2* HEMATOCRIT % 36.7 PLATELETS AUTO 10*3/uL 437* Results from last 7 days Lab Units 01/28/242114 SODIUM mmol/L 139 POTASSIUM mmol/L 3.5 CO2 mmol/L 27 BUN mg/dL 6* CREATININE mg/dL 0.59* Results from last 7 days Lab Units 01/28/242114 INR 1.21* Medications: amiodarone, 100 mg, oral, Daily [Held by provider] apixaban, 5 mg, oral, q12h JESSY carvedilol, 6.25 mg, oral, BID with meals dilTIAZem CD, 180 mg, oral, Daily levothyroxine, 50 mcg, oral, Daily pantoprazole, 40 mg, oral, Daily Imaging: XR abdomen 1 view Narrative: XR ABDOMEN 1 VIEW 01/29/2024 9:38 AM CLINICAL INDICATIONS: Abdominal pain, constipation. COMPARISON: CT abdomen pelvis 01/29/2024 FINDINGS: Residual oral contrast identified in the rectosigmoid colon, descending colon and diverticula. Stable distended nondilated colonic loops. No air-filled dilated small bowel loops. Impression: Nonobstructive bowel gas pattern. Residual contrast in the left half of the colon. Electronically signed: Jose Maria Longo. CT abdomen pelvis w IV contrast Narrative: CT ABDOMEN PELVIS W IV CONTRAST 01/29/2024 12:01 AM SIGNS AND SYMPTOMS: Acute nonlocalized abdominal pain, small bowel obstruction, abdominal mass TECHNIQUE: Multidetector ct axial images of the abdomen and pelvis were obtained with IV contrast. Multiplanar reformats were performed and viewed on a separate workstation and reviewed to further define anatomy and possible pathology. Appropriate CT dose lowering techniques were utilized. COMPARISON: 11/19/2023 FINDINGS: Lower Chest: Lung bases clear. Hepatobiliary: Subcapsular segment 4 lesion measures 0.7 cm (series 4 image 34) too small to characterize. Gallbladder surgically absent. No biliary dilation. Pancreas: Pancreas unremarkable. No pancreatic ductal dilation. Spleen: Within normal limits. Adrenals: Within normal limits. Kidneys, ureters, bladder: Kidneys are unremarkable. No collecting system dilation. Urinary bladder is underdistended. Gastrointestinal: Small and large bowel are normal in caliber. Positive oral contrast present. Colonic diverticulosis. Circumferential wall thickening of the distalmost descending colon/proximal sigmoid colon with ill-defined adjacent edema. Region corresponds to transition point on prior CT. No free air. Vasculature: Infrarenal abdominal aortic aneurysm measures 3.6 cm. Fusiform dilation of the left common iliac artery up to 2.8 cm. Lymph Nodes: Enlarged 1.1 cm arlene hepatis lymph node (series 4 image 50). Enlarged para-aortic lymph node, 1.1 cm (series 4 image 61). Reproductive Organs: Uterus unremarkable. No abnormal pelvic mass. Musculoskeletal: Vertebral body heights maintained. 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 Impression: *Circumferential wall thickening of the distal descending and proximal sigmoid colon, highly concerning for malignancy. Colonoscopy recommended. *Enlarged retroperitoneal and arlene hepatis lymph nodes, suspicious for metastatic disease. *Segment 4 hepatic lesion, too small to characterize. *Infrarenal abdominal aortic aneurysm, 3.6 cm. Fusiform (more content not included)... [facility] 01-29-2024 Note Hospital Medicine History and Physical 01/29/2024 1:08 AM THE HOSPITALIST TEAM PREFERS TO USE [employer] FOR COMMUNICATION 7AM-7PM. IF I DO NOT RESPOND WITHIN 15 MINUTES, PLEASE PAGE ME/CALL THROUGH THE BANANA CARRIER. FROM 7PM-7AM, PLEASE PAGE [phone](COVR) Chief Complaint No chief complaint on file. History of Present Illness Angie Watt is an 73 y.o. female admitted from [facility] with chief complaint of diffuse abdominal discomfort bloating and nausea since more than a week pain generalized all over her belly nonradiating had constipation since past 4 to 5 days has been having persistent nausea worse with eating but no vomiting patient was seen in the ER at [facility] had workup done including CBC which showed WBC 8.8 hemoglobin 12 hematocrit 37.5 platelet 431 blood chemistry showed sodium 135 potassium 4.4 anion gap 10.7 GFR more than 60 lactate was 1.3 ALT 25 alkaline phosphatase 128 she underwent CAT scan of her belly which showed progressive chronic distention and an area of narrowing and wall thickening in the descending/proximal sigmoid colon with a partial colonic obstruction questionable mass also as 3.1 x 3.2 cm stable abdominal aortic aneurysm and bilateral common iliac aneurysms Patient was seen by general surgery in the hospital who recommended patient be transferred to [facility]. At the time of examination patient appeared to be pain-free comfortable in no distress and during the examination and in 1 episode of passing gas. Patient has history of chronic A-fib status post ablation hypertension morbid obesity Review of System and Physical Exam Temp: [36.7 ???C (98.1 ???F)] 36.7 ???C (98.1 ???F) Heart Rate: [64] 64 Resp: [18] 18 BP: (135)/(75) 135/75 Physical Exam Vitals reviewed. Constitutional: Appearance: Normal appearance. She is obese. HENT: Head: Normocephalic and atraumatic. Right Ear: Tympanic membrane, ear canal and external ear normal. Left Ear: Tympanic membrane, ear canal and external ear normal. Nose: Nose normal. Mouth/Throat: Mouth: Mucous membranes are moist. Pharynx: Oropharynx is clear. Eyes: Extraocular Movements: Extraocular movements intact. Conjunctiva/sclera: Conjunctivae normal. Pupils: Pupils are equal, round, and reactive to light. Cardiovascular: Rate and Rhythm: Normal rate. Rhythm irregular. Pulses: Normal pulses. Heart sounds: Normal heart sounds. Pulmonary: Effort: Pulmonary effort is normal. Breath sounds: Normal breath sounds. Abdominal: General: Abdomen is flat. Bowel sounds are normal. Palpations: Abdomen is soft. Musculoskeletal: General: Normal range of motion. Cervical back: Normal range of motion and neck supple. Skin: General: Skin is warm and dry. Capillary Refill: Capillary refill takes less than 2 seconds. Neurological: General: No focal deficit present. Mental Status: She is alert. Mental status is at baseline. Psychiatric: Mood and Affect: Mood normal. Behavior: Behavior normal. Review of Systems Constitutional: Negative. HENT: Negative. Eyes: Negative. Respiratory: Negative. Cardiovascular: Negative. Gastrointestinal: Positive for abdominal pain, constipation and nausea. Endocrine: Negative. Genitourinary: Negative. Musculoskeletal: Negative. Allergic/Immunologic: Negative. Neurological: Negative. Hematological: Negative. Psychiatric/Behavioral: Negative. Problem List Patient Active Problem List Diagnosis Date Noted Abdominal pain 01/29/2024 Diverticulitis 11/20/2023 Paroxysmal atrial fibrillation (CMS/HCC) 05/15/2022 Anxiety 02/25/2017 Hypertensive disorder 02/25/2017 Leukocytosis 02/25/2017 Persistent atrial fibrillation (CMS/HCC) 02/25/2017 Assessment and Plan Abdominal pain with concern for obstruction/colonic mass Paroxysmal atrial fibrillation Hypertension History of diverticulosis N.p.o. IV fluid surgery consult for possible endoscopy repeat abdominal film in the morning repeat electrolytes creatinine hold anticoagulation in anticipation for any procedure telemetry check magnesium in the morning Full code VTE Prophylaxis: Hold for anticipated procedure ----- Focus of this inpatient stay will remain on problems that need acute care setting for care. We will review available studies and will order additional labs, imaging and other studies as appropriate. As needed medicines are ordered as appropriate. VTE Prophylaxis will be ordered as appropriate. Please see above for management plan for individual hospital problems. Home medications are reviewed and will be continued as appropriate. Patient will be continued to be followed during this hospital stay by a member of [facility]. Past Medical History Past Medical History: Diagnosis Date Abnormal ECG Arrhythmia Atrial fibrillation (CMS/HCC) Hypertension Hypothyroidism Paroxysmal atrial fibrillation (CMS/HCC) 05/15/2022 Sleep apnea P (more content not included)... [facility] 12-24-2023 Note Hypertension is unch anged. Continue current medications. Blood pressure will be reassessed at the next regular appointment Continue to monitor at home- goal is < 130/80. [facility] 12-24-2023 Note [facility] CARDIOLOGY PROGR ESS NOTE HPI: Angie Watt is a 73 y.o. female here for routine F/U HPI 73 y.o. year old with past medical history of A-fib s/p PVI as well as posterior box isolation 07/2021, hypertension, HFpEF, anxiety. B/P at home 130-135/ 70-80 No episodes of A fib/flutter since last visit- she monitor with [email or web address]. Denied chest pain, SOB, orthopnea, palpitations. Recently was admitted for acute diverticulitis at [facility]. Previous HPI per [place] SPENCER np HPI: Angie Watt is a 73 y.o. year old [...] PMHx: a.fib; HTN, anxiety FMHx: father - MD; sister - a.fib; father - a.fib Echocardiogram [...] trig 100, LDL 103 TSH 04/11/2020: 8.847 Visit Vitals BP (!) 148/92 (BP Location: Left arm, Patient Position: Sitting) Pulse 83 Ht 1.676 m (5' 6 ) SpO2 95% BMI 49.82 kg/m??? Smoking Status Former BSA 2.55 m??? No Known Allergies Medications: Current Outpatient Medications on File Prior to Visit Medication Sig Dispense Refill amiodarone (Pacerone) 100 mg tablet TAKE 1 TABLET BY MOUTH ONCE DAILY DIRECTED. 90 tablet 3 apixaban (Eliquis) 5 mg tablet Take 1 tablet by mouth in the morning and at bedtime. carvedilol (Coreg) 6.25 mg tablet Take 6.25 mg by mouth with breakfast and with evening meal. dilTIAZem ER (Tiazac) 180 mg 24 hr capsule Take 1 tablet by mouth in the morning. doxepin (SINEquan) 10 mg capsule 10mg in the AM, 35mg in the PM irbesartan (Avapro) 300 mg tablet Take 1 tablet by mouth in the morning. levothyroxine (Synthroid, Levoxyl) 50 mcg tablet Take 1 tablet by mouth in the morning. Linzess 72 mcg capsule Take 72 mcg by mouth before breakfast. omeprazole (PriLOSEC) [address] capsule Take 1 tablet by mouth in the morning. acetaminophen (Tylenol) 500 mg tablet Take 2 tablets (1,000 mg) by mouth every 8 (eight) hours for 291 doses. 30 tablet 0 No current facility-administered medications on file prior to visit. Physical Exam: Constitutional: Appearance: Normal appearance. Without apparent distress, obese, ambulates with cane HENT: Head: Normocephalic and atraumatic. Nose: Nose normal. Mouth/Throat: Mouth: Mucous membranes are moist. Eyes: Extraocular Movements: Extraocular movements intact. Conjunctiva/sclera: Conjunctivae normal. Neck: Vascular: No JVD. Cardiovascular: Rate and Rhythm: Normal rate and regular rhythm. Pulses: Dorsalis pedis pulses (more content not included)... [facility] 12-24-2023 Note Patient here for 6 m o follow up PAF, HFpEF, and hypertension. Had labs and EKG last month. Still taking amiodarone once daily. Denies chest pain, SOB, lightheadedness/syncope, and bleeding on Eliquis. Palpitations are still very short lived and no more than usual. She had routine amiodarone testing in Jun 2023 after her apt with Lissa Spencer CNP. Review of Systems Cardiovascular: Positive for leg swelling (resolves by morning) and palpitations. Musculoskeletal: Positive for arthritis, back pain and joint pain. All other systems reviewed and are negative. [facility] 12-24-2023 Note [id number]= 3- age , Female, HTN Recent EKG sinus rhythm 11/20/23 - continues amiodarone 100mg daily, coreg and diltiazem -s/p PVI ([facility]) + Superior roof and Inferior line (posterior box isolation) + CTI 07/2021 -Continue yearly eye exams, and CXR/TSH/LFTs annually- pt refuses q 6months [facility] 11-22-2023 Note [facility] General Surgery DAILY PROGRESS NOTE Subjective [...] Results from last 7 days Lab Units 11/22/2344611/21/23 0553 11/20/23 1042 WBC AUTO 10*3/uL 7.75 7.22 9.02 HEMOGLOBIN g/dL 11.0* 11.0* 11.5* HEMATOCRIT % 35.2* 34.7* 36.1 PLATELETS AUTO 10*3/uL 341 349 388 Results from last 7 days Lab Units 11/22/2344611/21/23 0553 11/20/23 1042 SODIUM mmol/L 135* 135* [...] and does not contain a result. Assessment/Plan Angie Watt is a 73 y.o. female with diverticulitis. Discharge home today Analgesics Antiemetics IV abx: ceftriaxone, course ends today Ambulate/OOB DVT ppx: SCDs, lovenox BID Incentive spirometry Reji Coker Medical Student, M3 Read and Reviewed by: Casey Tanner MD PGY-1 General Surgery Resident [facility] 11-22-2023 Note Problem: Pain Goal: LTG-Verbalize decrease in pain Outcome: Progressing Goal: LTG-Demostrate that the pain does not impair ADLs Outcome: Progressing Goal: STG-Pt will verbalize decreased discomfort Outcome: Progressing Problem: Pain - Adult Goal: Verbalizes/displays adequate comfort level or baseline comfort level Outcome: Progressing Problem: Safety - Adult Goal: Free from fall injury Outcome: Progressing Flowsheets (Taken 11/21/20231901) Free from fall injury: Assess patient frequently for physical needs Identify cognitive and physical deficits and behaviors that affect risk of falls [place] fall precautions as indicated by assessment Educate [...] maintained or improved Outcome: Progressing Flowsheets (Taken 11/21/20231901) Care Plan - Patient's Chronic Conditions and [...] exacerbated and prevent overall improvement and discharge [facility] 11-21-2023 Note Attestation signed by Saida Lai MD at 11/23/2023 2:06 PM Attending Physician Statement I have discussed the case, including pertinent history and exam findings with Dr. Tanner, medical or surgical instrument maker and have personally seen the patient. I agree with the assessment, plan and orders as documented. [phone] pager [phone] phone [facility] General Surgery DAILY PROGRESS NOTE Subjective [...] and does not contain a result. Assessment/Plan Angie Watt is a 73 y.o. female with diverticulitis. Advance to GI soft Discontinue IV fluids Daily labs Outside imaging pending Analgesics Antiemetics IV abx: ceftriaxone Ambulate/OOB DVT ppx: SCDs, lovenox BID Dispo: discharge home 11/20 or 11/21 Casey Tanner MD General Surgery Resident, PGY-0 I can be reached via [employer] 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 Maybe Screened via [facility]. Patient is from home, with daughter, and reports goal to return at discharge. She endorses utilization of a shower chair, walker, and CPAP at night. [facility] 11-20-2023 Note 11/20/23 0946 Admission Assessment [...] Discharge? Yes Does the patient have a embedded case manager assigned to them through their [...] to send link and activate MyChart? No [facility] 06-18-2023 Note [place] Electrophysiology Consult Note Reason for visit: AF , follow up 6 months HPI: Angie Watt is a 73 y.o. year old [...] is in sinus rhythm today. EP study 2/23/2022POST PROCEDURE DIAGNOSIS 1. Persistent atrial fibrillation s/p [...] PMHx: a.fib; HTN, anxiety FMHx: father - MD; sister - a.fib; father - a.fib Echocardiogram [...] No current facilit (more content not included)... [facility] 06-18-2023 Note Patient here for 6 [...] All other systems reviewed and are negative. [facility] 06-14-2021 Note [facility], [place] NAME: ANGIE WATT A DATE OF : MEDICAL REC#: [id number] RENAL NURSE: CASSIE DOMINGUEZ ADMIT DATE: 06/14/2021 08:37:00 [employer]ATH[employer]KER DATE: 06/20/2021 08:00 DICTATING PHYSICIAN: CHARLI PULIDO DICTATION DATE: 06/14/2021 18:00 duplicate entry Electronically Authenticated and Edited by: Charli Pulido MD on 12/05/2021 07:50 PM EDT [facility] [place], [place] NAME: ANGIE WATT A DATE OF : MEDICAL REC#: [id number] RENAL NURSE: CASSIE DOMINGUEZ ADMIT DATE: 06/14/2021 08:37:00 LEATHER [employer]TRID[employer]T MAKER DATE: 06/20/2021 08:00 DICTATING PHYSICIAN: CHARLI PULIDO [...] in an anterior/posterior direction. 360 joules of [place] cardioversion on two occasions did not convert [...] Approved by: CHARLI PULIDO 12/05/2021 19:42:00 [facility] Evaluation + Plan note No data available for this section [facility] Discharge instructions No data available for this section [facility] Progress note No data available for this section [facility] Summary Purpose Family History No Family History Records FoundNo Family History Records Found No data available for this section No Family History Records FoundNo Family History Records Found Advance Directives No Advanced Directives Records FoundNo Advanced Directives Records FoundNo Advanced Directives Records FoundNo Advanced Directives Records Found Additional Source Comments INFORMATION SOURCE (unrecogn ized section and content) DATE CREATED AUTHOR 08/17/2021 [facility] DATE CREATED AUTHOR AUTHOR'S ORGANIZ ATION 05/19/[address] [facility] DATE CREATED AUTHOR AUTHOR'S ORGANIZ ATION 02/11/2024 [facility] DATE CREATED AUTHOR AUTHOR'S ORGANIZ ATION 02/15/2024 [facility] Patient Care team informatio n (unrecognized section and content) Personnel Name: Kerri Smith MD Address: Address: [address] [place] [address] FOR RECORDS PERTAINING TO PATIENTS WHO ARE [...] BE BASED ON THE PRIMARY CLINICAL RECORDS. [employer] [facility]. provides no warranty or guarantee of the accuracy or completeness of information in this document.
--- NOTE | 2024-03-08 13:30 | ED_ITS ---
HPI - Abdominal Pain General Chief Complaint: Abdominal Pain Stated Complaint: CONSTIPATED, NAUSEOUS Time Seen by Provider: 03/08/24 13:14 Source: patient and family Mode of arrival: walk-in Limitations: no limitations History of Present Illness HPI narrative: 73-year-old female presents for abdominal pain. It is in the left lower abdomen and she describes what sounds like a stricture. She states she gets infections and only IV antibiotics work. She was given Cipro and Flagyl but stopped it after 3 days because it was not working. The pain is moderate to severe. She is scheduled for abdominal surgery in late March in [place]. Related Data Home Medications ?Medication ?Instructions ?Recorded ?Confirmed amiodarone 100 mg tablet 100 mg PO DAILY 11/19/23 03/08/24 apixaban 5 mg tablet (Eliquis) 5 mg PO Q12H 11/19/23 03/08/24 carvedilol 6.25 mg tablet 6.25 mg PO Q12H 11/19/23 03/08/24 diltiazem HCl 180 mg capsule,24 180 mg PO DAILY 11/19/23 03/08/24 hr,extended release (Tiadylt ER) doxepin 25 mg capsule 50 mg PO .pm 11/19/23 03/08/24 irbesartan 300 mg tablet 300 mg PO DAILY 11/19/23 03/08/24 levothyroxine 50 mcg tablet 50 mcg PO DAILY 11/19/23 03/08/24 omeprazole 40 mg capsule,delayed 40 mg PO DAILY 11/19/23 03/08/24 release linaclotide 72 mcg capsule 72 mcg PO DAILY 12/25/23 01/28/24 (Linzess) doxepin 10 mg capsule 10 mg PO .QD 01/18/24 03/08/24 Allergies Allergy/AdvReac Type Severity Reaction Status Date / Time No Known Drug Allergies Allergy Verified 03/08/24 13:19 Review of Systems ROS Narrative A ten point review of systems is negative except as noted above. [facility] Medical History (Updated 03/08/24 @ 15:27 by Steven Langston MD) Abdominal pain ?R10.9 - Unspecified abdominal pain (ICD-10) Partial bowel obstruction ?K56.600 - Partial intestinal obstruction, unspecified as to cause (ICD-10) Partial obstruction of colon ?K56.600 - Partial intestinal obstruction, unspecified as to cause (ICD-10) Diverticulitis ?K57.92 - Diverticulitis of intestine, part unspecified, without perforation or abscess without bleeding (ICD-10) Hypertension ?I10 - Essential (primary) hypertension (ICD-10) A-fib ?I48.91 - Unspecified atrial fibrillation (ICD-10) Acute diverticulitis ?K57.92 - Diverticulitis of intestine, part unspecified, without perforation or abscess without bleeding (ICD-10) Abdominal pain ?R10.9 - Unspecified abdominal pain (ICD-10) Surgical History History of cholecystectomy ?Z90.49 - Acquired absence of other specified parts of digestive tract (ICD- 10) Family History Sister Family history of hypertension Father Family history of myocardial infarction Social History (Updated 01/27/24 @ 23:49 by Samara Borrero RN) Within the past year, how often did you have a drink containing alcohol: never Within the past year, how often did you have six or more drinks on one occasion: never Score interpretation: A score less than 3 is consistent with normal alcohol consumption. Smoking status: Former smoker Non-prescribed substance use: denies use Previous occupational history: retired Highest level of school completed/degree received: 11th grade Are you now , , , , never or living with a partner: In a typical week, how many times do you talk on the telephone with family, friends, or neighbors: 3 or more times per week How often do you get together with friends or relatives: twice per week How often do you attend moravian or orthodoxy services: 4 or more times per year Do you belong to any clubs or organizations such as moravian groups unions, fraternal or athletic groups, or school groups: no Total score: 2 Score interpretation: A score of greater than or equal to 2 indicates the lowest level of social isolation. Little interest or pleasure in doing things: not at all Feeling down, depressed, or hopeless: not at all Feel stressed/tense/nervous/anxious/difficulty sleeping: not at all Do you think of yourself as: straight/heterosexual Gender Identity: female Exam Narrative Exam Narrative: Nurses note and vital signs reviewed and patient is not hypoxic. General: The patient appear in no apparent distress. Skin: Warm, dry, no pallor noted. There is no rash noted. Head: Normocephalic, atraumatic Eye: Normal conjunctiva, no drainage Ears, Nose, Mouth, and Throat: oral mucosa is moist. Nares patent. Cardiovascular: Regular Rate and Rhythm Respiratory: Patient is in no distress, no accessory muscle use, lungs are clear to auscultation, no wheezing, rales or rhonchi Back: non-tender GI: Obese and soft. Tenderness in the left lower quadrant Musculoskeletal: The patient has no evidence of calf tenderness, no pitting edema, symmetrical pulses noted bilaterally Neurological: A&O, normal speech Psychiatric: Cooperative Constitutional Vital Signs, click to edit/add: Last Vital Signs Temp 98 F 03/08/24 13:19 Pulse 65 03/08/24 13:19 Resp 18 03/08/24 13:19 BP 128/74 03/08/24 13:19 Pulse Ox 98 03/08/24 13:19 O2 Del Method Room Air 03/08/24 13:19 Course Vital Signs Vital signs: Vital Signs Temperature 98 F 03/08/24 13:19 Pulse Rate 65 03/08/24 13:19 Respiratory Rate 18 03/08/24 13:19 Blood Pressure 128/74 03/08/24 13:19 Pulse Oximetry 98 03/08/24 13:19 Oxygen Delivery Method Room Air 03/08/24 13:19 Temperature 98 F 03/08/24 13:19 Pulse Rate 65 03/08/24 13:19 Respiratory Rate 18 03/08/24 13:19 Blood Pressure 128/74 03/08/24 13:19 Pulse Oximetry 98 03/08/24 13:19 Oxygen Delivery Method Room Air 03/08/24 13:19 MDM - Abdominal Pain MDM Narrative Medical decision making narrative: CAT scan again shows some inflammation but no definite diverticulitis. This inflammation appears to have been there for an extended period of time. This has been evaluated by her general surgeon in [place] and apparently surgery is planned for late March. The patient is frustrated and feels that her surgeon in [place] was not helping her adequately. She will be admitted overnight for pain control and nausea control. Findings are discussed with the patient and her family. Differential Diagnosis Differential diagnosis: Likely abdominal pain, constipation, diverticulitis and small bowel obstruction Lab Data Attestation: I reviewed the patient's lab results. Labs: Lab Results 03/08/24 03/08/24 Range/Units 13:38 15:00 WBC 11.7 H (4.0-11.0) 10^3/uL RBC 4.12 L (4.20-5.40) 10^6/uL Hgb 11.1 L (12.0-16.0) g/dL Hct 34.9 L (36.0-48.0) % MCV 84.7 (81.0-99.0) fL MCH 26.9 (26.7-34.0) pg MCHC 31.8 (29.9-35.2) g/dL RDW 17.8 H (11.0-15.0) % Plt Count 370 (150-450) 10^3/uL MPV 10.5 (9.5-13.5) fL Neut % (Auto) 84.7 H (43.0-75.0) % Lymph % (Auto) 8.3 L (20.5-60.0) % [place] % (Auto) 6.2 (1.7-12.0) % Eos % (Auto) 0.3 L (0.9-7.0) % Baso % (Auto) 0.2 (0.2-2.0) % Neut # (Auto) 9.9 H (1.4-6.5) 10^3/uL Lymph # (Auto) 1.0 L (1.2-3.8) 10^3/uL [place] # (Auto) 0.7 (0.3-0.8) 10^3/uL Eos # (Auto) 0.0 (0.0-0.7) 10^3/uL Baso # (Auto) 0.0 (0.0-0.1) 10^3/uL Abs Immat Gran (auto) 0.04 H (0.00-0.03) 10^3/uL Imm/Tot Granulo (auto) 0.3 (0.0-0.5) % Sodium 138 (136-145) mmol/L Potassium 2.7 L* (3.5-5.1) mmol/L Chloride 103 (98-107) mmol/L Carbon Dioxide 30.1 (21.0-32.0) mmol/L Anion Gap 7.6 BUN 20.0 H (7.0-18.0) mg/dL Creatinine 0.71 (0.55-1.02) mg/dL Est GFR ( Amer) >60 (>=60) Est GFR (Non-Af Amer) >60 (>=60) BUN/Creatinine Ratio 28.2 Glucose 120 H (74-106) mg/dL Calcium 8.9 (8.5-10.1) mg/dL Urine Color Yellow (YELLOW) Urine Clarity Clear (CLEAR) Urine pH 6.5 (5.0-9.0) Ur Specific [place] <=1.005 A (1.005-1.025) Urine Protein Negative (NEG/TRACE) mg/dL Urine Glucose (UA) Negative (NEGATIVE) mg/dL Urine Ketones Trace A (NEGATIVE) mg/dL Urine Occult Blood Negative (NEGATIVE) Urine Nitrite Negative (NEGATIVE) Urine Bilirubin Negative (NEGATIVE) Urine Urobilinogen 1.0 (0.2-1.0) EU/dL Ur Leukocyte Esterase Negative (NEGATIVE) Urine RBC None seen (0-2) #/HPF Urine WBC 0-2 A (NONE SEEN) #/HPF Ur Squamous Epith Cells Moderate A (NONE/RARE) #/LPF Urine Crystals None seen (None Seen) #/HPF Urine Bacteria Trace A (NONE SEEN) #/HPF Urine Casts None seen (NONE SEEN) #/LPF Urine Mucus None seen (NONE SEEN) Urine Yeast Seen A (NONE SEEN) Imaging Data CT scan - abdomen: Radiologist's impression: ITS Impressions Abdomen/Pelvis CT 03/08/24 13:30 IMPRESSION: 1. Persistent fluid-filled dilated colon to level of the proximal sigmoid colon compatible with a history of colonic stricture. Pericolonic stranding of the proximal sigmoid colon at the site of narrowing is again identified, unchanged as compared to 01/27/2024. 2. Diverticulosis. Normal appendix. 3. Right renal cyst. Hepatic cyst. 4. Moderate diffuse atherosclerotic disease. 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 5. Trace ascites. 6. 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 Electronically authenticated by: BUNNY LEWIS Date: 03/08/2024 15:15 Discharge Plan Discharge Chief Complaint: Abdominal Pain Clinical Impression: Abdominal pain Patient Disposition: Admitted as Observation Time of Disposition Decision: 15:27 Condition: Good
--- NOTE | 2024-03-08 13:30 | CT_ITS ---
The [address] [address] Patient Name: ANGIE WATT MRN: [id number] date: 1950 Sex: F Assigned Patient Location: ER Current Patient Location: ER Accession/Order Number: [id number] Exam Date: 03/08/2024 14:14 Report Date: 03/08/2024 15:15 At the request of: EDUARDO WALKER Procedure: CT abdomen pelvis w con EXAM: CT abdomen pelvis w con HISTORY: Pain, history of stricture COMPARISON: 01/27/2024. 02/14/2024. 12/25/2023. TECHNIQUE: Enhanced helical acquisition obtained through the abdomen and the pelvis. FINDINGS: The visualized lung bases and the pleural spaces are clear. Interposition of the hepatic flexure of the colon within the right anterior subphrenic space, anatomic variant. Stable 7 mm cyst within the left hepatic lobe. Development of focal fatty infiltration periphery of hepatic segment IVb. Prior cholecystectomy. No significant biliary ductal dilatation. The spleen, pancreas, adrenal glands and the left kidney are unremarkable. Stable 1.2 cm cyst within the inferior right kidney. Moderate diffuse atherosclerotic vascular calcifications. A 3.3 x 3.1 cm infrarenal abdominal aortic aneurysm. Aneurysmal dilatation of the bilateral common iliac arteries measuring 2.1 cm on the right and 3.4 cm on the left. Trace ascites. Normal appendix. Persistent diffuse distention of fluid-filled colon with scattered air-fluid levels and abrupt narrowing of the colon at the proximal sigmoid colon. There is mild stranding of the adjacent pericolonic fat, unchanged as compared to 01/27/2024. Multiple colonic diverticula are present. Mild cystocele with pelvic floor laxity. Chronic bilateral L4 spondylolysis with associated grade [address] on L5. CT/CT abdomen pelvis w con IMPRESSION: 1. Persistent fluid-filled dilated colon to level of the proximal sigmoid colon compatible with a history of colonic stricture. Pericolonic stranding of the proximal sigmoid colon at the site of narrowing is again identified, unchanged as compared to 01/27/2024. 2. Diverticulosis. Normal appendix. 3. Right renal cyst. Hepatic cyst. 4. Moderate diffuse atherosclerotic disease. 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 5. Trace ascites. 6. 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 Electronically authenticated by: BUNNY LEWIS Date: 03/08/2024 15:15
[2024-03-08 13:47] LABS: Basophils Percent Auto 0.2 % (0.2-2.0); Eosinophils Percent Auto 0.3 % (0.9-7.0); Hematocrit 34.9 % (36.0-48.0); Hemoglobin 11.1 g/dL (12.0-16.0); Immature Granulocytes Abs Auto 0.04 10^3/uL (0.00-0.03); Immature Granulocytes Pct Auto 0.3 % (0.0-0.5); Lymphocytes Percent Auto 8.3 % (20.5-60.0); Mean Corpuscular HGB Conc 31.8 g/dL (29.9-35.2); Mean Corpuscular Hemoglobin 26.9 pg (26.7-34.0); Mean Corpuscular Volume 84.7 fL (81.0-99.0); Mean Platelet Volume 10.5 fL (9.5-13.5); Monocytes Absolute Auto 0.7 10^3/uL (0.3-0.8); Monocytes Percent Auto 6.2 % (1.7-12.0); Neutrophils Absolute Auto 9.9 10^3/uL (1.4-6.5); Neutrophils Percent Auto 84.7 % (43.0-75.0); Platelet Count 370 10^3/uL (150-450); Red Blood Count 4.12 10^6/uL (4.20-5.40); Red Cell Distribution Width 17.8 % (11.0-15.0); White Blood Count 11.7 10^3/uL (4.0-11.0)
[2024-03-08] MEDS: ONDANSETRON PF 4 MG/2 ML VIAL IV ×2 (13:56→17:09)
[2024-03-08 13:59] LABS: Anion Gap 7.6; BUN Creatinine Ratio 28.2; Calcium 8.9 mg/dL (8.5-10.1); Carbon Dioxide 30.1 mmol/L (21.0-32.0); Chloride 103 mmol/L (98-107); Estimated GFR (African America >60 (>=60); Estimated GFR (Non-African Ame >60 (>=60); Glucose 120 mg/dL (74-106); Sodium 138 mmol/L (136-145)
[2024-03-08 14:04] LABS: Potassium 2.7 mmol/L (3.5-5.1)
[2024-03-08 15:05] LABS: Bilirubin Urine NEGATIVE (NEGATIVE); Blood Urine NEGATIVE (NEGATIVE); Clarity Urine CLEAR (CLEAR); Color Urine YELLOW (YELLOW); Glucose Urine UA NEGATIVE (NEGATIVE); Ketones Urine TRACE mg/dL (NEGATIVE); Leukocyte Esterase Urine NEGATIVE (NEGATIVE); Nitrite Urine NEGATIVE (NEGATIVE); Protein Urine NEGATIVE (NEG/TRACE); Specific Gravity Urine <=1.005 (1.005-1.025); pH Urine 6.5 (5.0-9.0)
[2024-03-08 15:13] LABS: Bacteria Urine TRACE #/HPF (NONE SEEN); Cast Seen? NONE SEEN #/LPF (NONE SEEN); Crystals Seen? None Seen #/HPF (None Seen); Mucus Urine NONE SEEN (NONE SEEN); RBC Urine NONE SEEN #/HPF (0-2); Squamous Epithelial Cell Urine MODERATE #/LPF (NONE/RARE); WBC Urine 0-2 #/HPF (NONE SEEN)
--- OUTSIDE RECORDS SUMMARY | 2024-03-08 16:13 | XMS_ITS | CCD ---
Author Organization 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 Family History Problem Relation Age of Onset Heart attack Father Atrial fibrillation Father Atrial fibrillation Sister Family Status - Relation Status Age at Father Sister Normal [facility] Office Visiton 02-11-2024 Follow-up visit [id number] Angie Watt 1950 F Date Provider Department Center 02/11/2024 Mallika-SAIDA LAI [facility] SURG Second Fl Family History Problem Relation Age of Onset Heart attack Father Atrial fibrillation Father Atrial fibrillation Sister Family Status - Relation Status Age at Father Sister Level of Service:58527 [place] OFFICE/OUTPATIENT ESTABLISHED LOW MDM 20 MIN Reason for Visit and Comments: Post-op [483] - Angie is here today for post op visit: Stricture of colon, s/p 01/31/24 colonoscopy Normal [facility] 30on 01-31-2024 30 The patient is Moderately Stable - Low risk of patient condition declining or worsening The patient's goals for the shift include colonoscopy The clinical goals for the shift include VSS, safety Normal [facility] HISTOLOGY - TISSUE EXAMon LAB AP CASE REPORT Normal [facility] Comment on above: Order Comment: Pre-o p diagnosis: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] Result Comment: Surg ical Pathology Case: [id number] Authorizing Provider: Saida Lai MD Collected: 01/31/20245 Ordering Location: [facility] Main Operating Room Received: 02/03/2024 0616 Pathologist: Siobhan Kraft MD Specimens: A) - Large Intestine, Left/Descending Colon, 55cm colon tissue B) - Large Intestine, Sigmoid Colon, sigmoid biopsy 30cm Performed By: #### L [id number] ####[facility] (BEAKER)[address] [place] [address] LAB AP CLINICAL INFORMATION [facility] Comment on above: Order Comment: Pre-o p diagnosis: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] Result Comment: Post -Op Diagnoses K56.699 - Stricture of colon (CMS/HCC) [ICD-10-CM] Performed By: #### L [id number] ####[facility] (BEAKER)[address] [place] [address] LAB AP GROSS DESCRIPTION [facility] Comment on above: Order Comment: Pre-o p diagnosis: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 L arge Intestine, Left/Descending Colon. Received in formalin labeled Angie Nay, 55 cm colon tissue are four rosas soft tissue bits and strips, 0.1 to 0.6 cm. The specimen is entirely submitted in a single cassette. Blanca Chen, Pathologists' Assembler Truck Trailer B. Large Intestine, Sigmoid Colon. Received in formalin labeled Angie Nay, Sigmoid biopsy 30 cm are nine rosas soft tissue bits, 0.2 to 0.4 cm. The specimen is entirely submitted in a single cassette. Blanca Chen, Pathologists' Assembler Truck Trailer Performed By: #### L [id number] ####[facility] (BEAKER)[address] [place] [address] LAB AP MICROSCOPIC DESCRIPTION Microscopic examination performed. 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 C olon, 55 cm, biopsy: - Tubular adenoma. B. Sigmoid colon, 30 cm, biopsy: - Colonic mucosa with no significant histologic abnormality. - No evidence of dysplasia. Performed By: #### L [id number] ####[facility] (BERICKI)[address] [facility] [place] [address] HPon 01-31-2024 HP H&P reviewed. The patient was examined and there are no changes to the H&P. CT scan showed thickening of the descending colon and sigmoid colon. Proceed for colonoscopy today. 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 Priority Lab ID A Large Intestine, Left/Descending Colon Tissue HISTOLOGY - TISSUE EXAM Saida Lai MD 01/31/241714 Description: 55cm colon tissue B Large Intestine, Sigmoid Colon Tissue HISTOLOGY - TISSUE EXAM Saida Lai MD 01/31/241715 Description: sigmoid biopsy 30cm Staff: Shotgun Shell Reprinting Unit Operator: Kaur Jacinto RN Scrub Person: Lacy Binting, EXPERIMENTAL MACHINING LAB MANAGER Indications: Angie Watt is an 73 y.o. female who is having surgery for Stricture of colon ([facility]) [K56.699]. Colonoscopy was offered to the [...] Recommendations: 1. Await pathology Follow up with tx [phone] pager [phone] clinic Normal [facility] POCT GLUCOSE METER UNSOLICIT ED RESULTSon 01-31-2024 Glucose [Mass/Vol] 91 mg/dL Normal 70-105 [facility] Comment on above: Order Comment: Waive d Testing in the ED is performed under the ED CLIA certificate #[id number]. Result Comment: [email or web address] Performed By: #### L [id number] #### [facility] (BEATRIZAKER) [address] [place] [address] 30on 01-30-2024 30 The patient is Moderately Stable - Low risk of patient condition declining or worsening The patient's goals for the shift include bowel prep The clinical goals for the shift include bowel prep, VSS Normal [facility] 30 The patient is Moderately Stable - [...] and behaviors that affect risk of falls Tyro fall precautions as indicated by assessment Problem: [...] symptoms for stability, deterioration, or improvement Normal [facility] CEAon 01-30-2024 CARCINOEMBRYONIC AG (NG/ML) IN SER/PLAS 2.0 ng/mL Normal 0-3 [facility] Comment on above: Performed By: #### L [id number] #### [facility] HOSPITAL LAB (BERICKI) [address] [place] [address] 30on 01-29-2024 30 The patient is Moderately [...] and behaviors that affect risk of falls Tyro fall precautions as indicated by assessment Problem: [...] symptoms for stability, deterioration, or improvement Normal [facility] 30 The patient is Moderately Stable - [...] and behaviors that affect risk of falls Tyro fall precautions as indicated by assessment Educate [...] and prevent overall improvement and discharge Normal [facility] 30 The patient is Moderately Stable - [...] and behaviors that affect risk of falls Tyro fall precautions as indicated by assessment Educate [...] and prevent overall improvement and discharge Normal [facility] BLOOD CULTUREon 01-28-2024 Bacteria identified Cx Nom (Bld) No growth at 5 days Normal [facility] Comment on above: Performed By: #### L [id number] ####[facility] (BEAKER)[address] [place] [address] Order Comment: From a different site than #1., Blood CBC WITH AUTO DIFFERENTIALon 01-28-2024 Basophils (Bld) [#/Vol] 0.02 10*3/uL Normal 0.00-0.20 [facility] Comment on above: Performed By: #### L [id number] #### [facility] HOSPITAL LAB (BEAKER) [address] [place] [address] Basophils/100 WBC (Bld) 0.3 % Normal 0.0-1.0 [facility] Comment on above: Performed By: #### L [id number] #### [facility] (BEAKER) [address] [place] [address] Eosinophils (Bld) [#/Vol] 0.13 10*3/uL Normal 0.00-0.50 [facility] Comment on above: Performed By: #### L [id number] #### [facility] (BEAKER) [address] [place] [address] Eosinophils/100 WBC (Bld) 2.0 % Normal 0.0-6.0 [facility] Comment on above: Performed By: #### L [id number] #### [facility] (BEAKER) [address] [place] [address] Erythrocyte distribution width (RBC) [Ratio] 17.5 % High 11.5-15.0 [facility] Comment on above: Performed By: #### L [id number] #### [facility] [address] [place] [address] ERYTHROCYTE MEAN CORPUSCULAR HEMOGLOBIN CONCENTRATION (G/DL) BY AUTOMATED 30.5 g/dL Low 32.0-35.0 [facility] Comment on above: Performed By: #### L [id number] #### [facility] ([facility]) [address] [place] [address] Hematocrit (Bld) [Volume fraction] 36.7 % Normal 36.0-48.0 [facility] Comment on above: Performed By: #### L [id number] #### [facility] ([facility]) [address] [place] [address] Hemoglobin (Bld) [Mass/Vol] 11.2 g/dL Low 12.0-15.0 [facility] Comment on above: Performed By: #### L [id number] #### [facility] ([facility]) [address] [place] [address] Immature granulocytes (Bld) [#/Vol] 0.02 10*3/uL Normal 0.00-0.20 [facility] Comment on above: Performed By: #### L [id number] #### [facility] ([facility]) [address] [place] [address] Immature granulocytes/100 WBC (Bld) 0.3 % Normal 0.0-1.0 [facility] Comment on above: Performed By: #### L [id number] #### [facility] (BEAKER) [address] [place] [address] Lymphocytes (Bld) [#/Vol] 1.37 10*3/uL Normal 1.20-4.00 [facility] Comment on above: Performed By: #### L [id number] #### [facility] (BEAKER) [address] [place] [address] Lymphocytes/100 WBC (Bld) 21.0 % Normal 20.0-45.0 [facility] Comment on above: Performed By: #### L [id number] #### [facility] (BEAKER) [address] [place] [address] MCH (RBC) [Entitic mass] 26.7 pg Low 27.0-33.0 [facility] Comment on above: Performed By: #### L [id number] #### [facility] [address] [place] [address] MCV (RBC) [Entitic vol] 87.4 fL Normal 82.0-98.0 [facility] Comment on above: Performed By: #### L [id number] #### [facility] ([facility]) [address] [place] [address] Monocytes (Bld) [#/Vol] 0.49 10*3/uL Normal 0.10-1.00 [facility] Comment on above: Performed By: #### L [id number] #### [facility] ([facility]) [address] [place] [address] Monocytes/100 WBC (Bld) 7.5 % Normal 5.0-12.0 [facility] Comment on above: Performed By: #### L [id number] #### [facility] ([facility]) [address] [place] [address] Neutrophils (Bld) [#/Vol] 4.48 10*3/uL Normal 1.60-7.60 [facility] Comment on above: Performed By: #### L [id number] #### [facility] ([facility]) [address] [place] [address] Neutrophils/100 WBC (Bld) 68.9 % Normal 40.0-72.0 [facility] Comment on above: Performed By: #### L [id number] #### [facility] [address] [place] [address] NRBC (PER 100 WBCS) BY AUTOMATED COUNT 0.0 % Normal 0 [facility] Comment on above: Performed By: #### L [id number] #### [facility] (BEAKER) [address] [place] [address] PLATELETS (10*3/UL) IN BLOOD AUTOMATED COUNT 437 10*3/uL High 150-400 [facility] Comment on above: Performed By: #### L [id number] #### [facility] ([facility]) [address] [place] [address] RBC (Bld) [#/Vol] 4.20 10*6/uL Normal 3.80-5.00 [facility] Comment on above: Performed By: #### L [id number] #### [facility] ([facility]) [address] [place] [address] WBC (Bld) [#/Vol] 6.51 10*3/uL Normal 4.00-10.60 [facility] Comment on above: Performed By: #### L [id number] #### [facility] ([facility]) [address] [place] [address] COMPREHENSIVE METABOLIC PANE Nacho 01-28-2024 Albumin [Mass/Vol] 3.4 g/dL Low 3.5-5.7 [facility] Comment on above: Performed By: #### L [id number] #### [facility] ([facility]) [address] [place] [address] ALP [Catalytic activity/Vol] 109 U/L High 34-104 [facility] Comment on above: Performed By: #### L [id number] #### [facility] ([facility]) [address] [place] [address] ALT [Catalytic activity/Vol] 11 U/L Normal 7-52 [facility] Comment on above: Performed By: #### L [id number] #### [facility] ([facility]) [address] [place] [address] Anion gap [Moles/Vol] 11 mmol/L Normal 7-20 [facility] Comment on above: Performed By: #### L [id number] #### [facility] ([facility]) [address] [place] [address] AST [Catalytic activity/Vol] 12 U/L Low 13-39 [facility] Comment on above: Performed By: #### L [id number] #### [facility] [address] [place] [address] Bilirubin [Mass/Vol] 0.5 mg/dL Normal 0.3-1.0 [facility] Comment on above: Performed By: #### L [id number] #### [facility] [address] [place] [address] Calcium [Mass/Vol] 8.5 mg/dL Low 8.6-10.3 [facility] Comment on above: Performed By: #### L [id number] #### [facility] [address] [place] [address] Chloride [Moles/Vol] 105 mmol/L Normal 98-107 [facility] Comment on above: Performed By: #### L [id number] #### [facility] [address] [place] [address] CO2 [Moles/Vol] 27 mmol/L Normal 21-31 [facility] Comment on above: Performed By: #### L [id number] #### [facility] [address] [place] [address] Creatinine [Mass/Vol] 0.59 mg/dL Low 0.60-1.20 [facility] Comment on above: Performed By: #### L [id number] #### [facility] [address] [place] [address] GLOMERULAR FILTRATION RATE ML/MIN/1.73 SQ M.PREDICTED 96.3 mL/min/1.73m*2 Normal >60.0 [facility] Comment on above: Result Comment: The [facility]???s estimated glomerular filtration rate (eGFR) will no [...] group of individuals. Performed By: #### L [id number] #### [facility] ([facility]) [address] [place] [address] Glucose [Mass/Vol] 84 mg/dL Normal 70-100 [facility] Comment on above: Performed By: #### L [id number] #### [facility] ([facility]) [address] [place] [address] Potassium [Moles/Vol] 3.5 mmol/L Normal 3.5-5.1 [facility] Comment on above: Performed By: #### L [id number] #### [facility] ([facility]) [address] [place] [address] Protein [Mass/Vol] 6.3 g/dL Normal 6.0-8.3 [facility] Comment on above: Performed By: #### L [id number] #### [facility] ([facility]) [address] [place] [address] Sodium [Moles/Vol] 139 mmol/L Normal 136-145 [facility] Comment on above: Performed By: #### L [id number] #### [facility] ([facility]) [address] [place] [address] Urea nitrogen [Mass/Vol] 6 mg/dL Low 7-25 [facility] Comment on above: Performed By: #### L [id number] #### [facility] ([facility]) [address] [place] [address] UREA NITROGEN/CREATININE (MASS RATIO) IN SER/PLAS 10.2 Normal [facility] Comment on above: Performed By: #### L [id number] #### [facility] ([facility]) [address] [place] [address] CONSULTon 01-28-2024 CONSULT Reason For Consult Partial [...] smoking history. She has been sent from [facility] where she was admitted on January 26 [...] discharge. N (more content not included)... Normal [facility] CT ABDOMEN PELVIS W IV CONTR Kermit [...] Francisco Cosby. Not Vldtd Invalid Interpretation Code [facility] HPon 01-28-2024 Reason For Consult Partial bowel [...] smoking history. She has been sent from [facility] where she was admitted on January 26 [...] discharge. N (more content not included)... Normal [facility] LACTIC ACID, PLASMAon 2023 LACTATE (MMOL/L) IN SER/PLAS 0.8 mmol/L Normal 0.5-2.2 [facility] Comment on above: Performed By: #### L [id number] #### [facility] HOSPITAL LAB (BEAKER) [address] [place] [address] LIPASEon 01-28-2024 LIPASE (U/L) IN SER/PLAS 7 U/L Low 11-82 [facility] Comment on above: Performed By: #### L [id number] #### [facility] ([facility]) [address] [place] [address] PROTIME-INRon 01-28-2024 INR IN PPP BY COAGULATION ASSAY 1.21 High 0.90-1.10 [facility] Comment on above: Result Comment: ACCC P [...] CHEST 1995;108:231S-246S. Performed By: #### L [id number] ####[facility] ([facility])[address] [place] [address] PROTHROMBIN TIME (PT) IN PPP BY COAGULATION ASSAY 15.3 Seconds High 12.3-14.8 [facility] Comment on above: Performed By: #### L [id number] ####[facility] ([facility])[address] [place] [address] TROPONIN Ion 01-28-2024 Troponin I.cardiac [Mass/Vol] 0.01 ng/mL Normal 0.00-0.04 [facility] Comment on above: Performed By: #### L [id number] ####[facility] ([facility])[address] [place] [address] Ambulatory Visit Summaryon 0 01-21-2024 Ambulatory Visit [...] for choosing us for your care. Yair [facility] Ambulatory Visit Summary Ambulatory Visit Summary ANGIE [...] for choosing us for your care. Normal [facility] Office Visiton 12-24-2023 Follow-up visit [id number] Angie Watt Gómez 1950 F Date Provider Department Center 12/24/2023 RIZWANA MURILLO [facility] Family History Problem Relation Age of Onset Heart attack Father Atrial fibrillation Father Atrial fibrillation Sister Family Status - Relation Status Age at Father Sister Level of Service:02987 [place] OFFICE/OUTPATIENT ESTABLISHED MOD MDM 30 MIN Normal [facility] Physician Referralon 024 Physician Referral [phone] 03 [id number]#1.00 TIFF Normal [facility] BASIC METABOLIC PANELon Anion gap [Moles/Vol] 12 mmol/L Normal 7- [facility] Comment on above: Performed By: #### L [id number] #### [facility] ([facility]) [address] [place] [address] Calcium [Mass/Vol] 8.5 mg/dL Low 8.6-10.3 [facility] Comment on above: Performed By: #### L [id number] #### [facility] ([facility]) [address] [place] [address] Chloride [Moles/Vol] 101 mmol/L Normal 98-107 [facility] Comment on above: Performed By: #### L [id number] #### [facility] ([facility]) [address] [place] [address] CO2 [Moles/Vol] 26 mmol/L Normal 21-31 [facility] Comment on above: Performed By: #### L [id number] #### [facility] ([facility]) [address] [place] [address] Creatinine [Mass/Vol] 0.78 mg/dL Normal 0.60-1.20 [facility] Comment on above: Performed By: #### L [id number] #### [facility] ([facility]) [address] [place] [address] GLOMERULAR FILTRATION RATE ML/MIN/1.73 SQ M.PREDICTED 81.2 mL/min/1.73m*2 Normal >60.0 [facility] Comment on above: Result Comment: The [facility]???s estimated glomerular filtration rate (eGFR) will no [...] group of individuals. Performed By: #### L [id number] #### [facility] ([facility]) [address] [place] [address] Glucose [Mass/Vol] 91 mg/dL Normal 70-100 [facility] Comment on above: Performed By: #### L [id number] #### [facility] ([facility]) [address] [place] [address] Potassium [Moles/Vol] 3.9 mmol/L Normal 3.5-5.1 [facility] Comment on above: Performed By: #### L [id number] #### [facility] ([facility]) [address] [place] [address] Sodium [Moles/Vol] 135 mmol/L Low 136-145 [facility] Comment on above: Performed By: #### L [id number] #### [facility] ([facility]) [address] [place] [address] Urea nitrogen [Mass/Vol] 8 mg/dL Normal 7-25 [facility] Comment on above: Performed By: #### L [id number] #### [facility] ([facility]) [address] [place] [address] UREA NITROGEN/CREATININE (MASS RATIO) IN SER/PLAS 10.3 Normal [facility] Comment on above: Performed By: #### L [id number] #### [facility] ([facility]) [address] [place] [address] CBCon 11-22-2023 Erythrocyte distribution width (RBC) [Ratio] 15.9 % High 11.5-15.0 [facility] Comment on above: Performed By: #### L [id number] #### [facility] ([facility]) [address] [place] [address] ERYTHROCYTE MEAN CORPUSCULAR HEMOGLOBIN CONCENTRATION (G/DL) BY AUTOMATED 31.3 g/dL Low 32.0-35.0 [facility] Comment on above: Performed By: #### L [id number] #### [facility] ([facility]) [address] [place] [address] Hematocrit (Bld) [Volume fraction] 35.2 % Low 36.0-48.0 [facility] Comment on above: Performed By: #### L [id number] #### [facility] ([facility]) [address] [place] [address] Hemoglobin (Bld) [Mass/Vol] 11.0 g/dL Low 12.0-15.0 [facility] Comment on above: Performed By: #### L [id number] #### [facility] ([facility]) [address] [place] [address] MCH (RBC) [Entitic mass] 27.5 pg Normal 27.0-33.0 [facility] Comment on above: Performed By: #### L [id number] #### [facility] ([facility]) [address] [place] [address] MCV (RBC) [Entitic vol] 88.0 fL Normal 82.0-98.0 [facility] Comment on above: Performed By: #### L [id number] #### [facility] ([facility]) [address] [place] [address] PLATELETS (10*3/UL) IN BLOOD AUTOMATED COUNT 341 10*3/uL Normal 150-400 [facility] Comment on above: Performed By: #### L [id number] #### [facility] ([facility]) [address] [place] [address] RBC (Bld) [#/Vol] 4.00 10*6/uL Normal 3.80-5.00 [facility] Comment on above: Performed By: #### L [id number] #### [facility] ([facility]) [address] [place] [address] WBC (Bld) [#/Vol] 7.75 10*3/uL Normal 4.00-10.60 [facility] Comment on above: Performed By: #### L [id number] #### [facility] ([facility]) [address] [place] [address] DSon 11-22-2023 DS Admission Admitted 11/20/2023 for [...] Medications These medications were sent to [facility] - [place], [place] - [address] [facility] [place] [address] [address] [facility] [address] [place] [address], [facility] [address] acetaminophen 500 mg tablet Activity Normal activity [...] of a cholecystectomy who presents to [facility] as a direct transfer from [facility] with diverticulitis. Pt had been having on [...] 11.5, otherwise wnl. Upon arrival to [facility], pt was started on a CLD, [...] appointments. Test Results Pending At Discharge Normal [facility] 30on 11-21-2023 30 Daily Case Managemen t Update Multidisciplinary rounds have been completed. Barriers to Discharge: Management of diverticulitis; on full liquid diet and IV fluids. Plan to discharge home when medically ready. Diet: Dietary Orders (From admission, onward) Start Ordered 11/21/23 1208 Full Liquid Diet Diet effective now Question: Room Service? Answer: No 11/21/23 1207 11/20/23 1632 Dietary nutrition supplements Lunch; Liquacel; Woodson; 2 packets; Oral Until discontinued Question Answer Comment Deliver with Lunch Select supplement: Liquacel flavor Woodson Strength: 2 packets Route Oral 11/20/23 1631 11/20/23 1631 Dietary nutrition supplements TID; Resource Breeze; 8 oz; Oral Until discontinued Question Answer Comment Deliver with TID Select supplement: Resource Breeze Strength: 8 oz Route Oral 11/20/23 1631 Physician Expected Discharge Date: 11/23/2023 Discharge Delays: PT Six Click Score: 17 OT Six Click Score: PT Recommendations: OT Recommendations: New Consults: Normal [facility] BASIC METABOLIC PANELon 06-0 Anion gap [Moles/Vol] 11 mmol/L Normal 7-20 [facility] Comment on above: Performed By: #### L [id number] #### [facility] [address] [place] [address] Calcium [Mass/Vol] 8.6 mg/dL Normal 8.6-10.3 [facility] Comment on above: Performed By: #### L [id number] #### [facility] [address] [place] [address] Chloride [Moles/Vol] 102 mmol/L Normal 98-107 [facility] Comment on above: Performed By: #### L [id number] #### [facility] ([facility]) [address] [place] [address] CO2 [Moles/Vol] 26 mmol/L Normal 21-31 [facility] Comment on above: Performed By: #### L [id number] #### [facility] [address] [place] [address] Creatinine [Mass/Vol] 0.75 mg/dL Normal 0.60-1.20 [facility] Comment on above: Performed By: #### L [id number] #### [facility] [address] [place] [address] GLOMERULAR FILTRATION RATE ML/MIN/1.73 SQ M.PREDICTED 85.1 mL/min/1.73m*2 Normal >60.0 [facility] Comment on above: Result Comment: The [facility]???s estimated glomerular filtration rate (eGFR) will no [...] individuals. Performed By: #### L [id number] #### [facility] ([facility]) [address] [place] [address] Glucose [Mass/Vol] 93 mg/dL Normal 70-100 [facility] Comment on above: Performed By: #### L [id number] #### [facility] ([facility]) [address] [place] [address] Potassium [Moles/Vol] 3.9 mmol/L Normal 3.5-5.1 [facility] Comment on above: Performed By: #### L [id number] #### [facility] ([facility]) [address] [place] [address] Sodium [Moles/Vol] 135 mmol/L Low 136-145 [facility] Comment on above: Performed By: #### L [id number] #### [facility] ([facility]) [address] [place] [address] Urea nitrogen [Mass/Vol] 8 mg/dL Normal 7-25 [facility] Comment on above: Performed By: #### L [id number] #### [facility] ([facility]) [address] [place] [address] UREA NITROGEN/CREATININE (MASS RATIO) IN SER/PLAS 10.7 Normal [facility] Comment on above: Performed By: #### L [id number] #### [facility] ([facility]) [address] [place] [address] CBCon 11-21-2023 Erythrocyte distribution width (RBC) [Ratio] 15.6 % High 11.5-15.0 [facility] Comment on above: Performed By: #### L [id number] #### [facility] ([facility]) [address] [place] [address] ERYTHROCYTE MEAN CORPUSCULAR HEMOGLOBIN CONCENTRATION (G/DL) BY AUTOMATED 31.7 g/dL Low 32.0-35.0 [facility] Comment on above: Performed By: #### L [id number] #### [facility] [address] [place] [address] Hematocrit (Bld) [Volume fraction] 34.7 % Low 36.0-48.0 [facility] Comment on above: Performed By: #### L [id number] #### [facility] ([facility]) [address] [place] [address] Hemoglobin (Bld) [Mass/Vol] 11.0 g/dL Low 12.0-15.0 [facility] Comment on above: Performed By: #### L [id number] #### [facility] ([facility]) [address] [place] [address] MCH (RBC) [Entitic mass] 27.4 pg Normal 27.0-33.0 [facility] Comment on above: Performed By: #### L [id number] #### [facility] ([facility]) [address] [place] [address] MCV (RBC) [Entitic vol] 86.5 fL Normal 82.0-98.0 [facility] Comment on above: Performed By: #### L [id number] #### [facility] ([facility]) [address] [place] [address] PLATELETS (10*3/UL) IN BLOOD AUTOMATED COUNT 349 10*3/uL Normal 150-400 [facility] Comment on above: Performed By: #### L [id number] #### [facility] ([facility]) [address] [place] [address] RBC (Bld) [#/Vol] 4.01 10*6/uL Normal 3.80-5.00 [facility] Comment on above: Performed By: #### L [id number] #### [facility] ([facility]) [address] [place] [address] WBC (Bld) [#/Vol] 7.22 10*3/uL Normal 4.00-10.60 [facility] Comment on above: Performed By: #### L [id number] #### [facility] ([facility]) [address] [place] [address] 30on 11-20-2023 30 Problem: Pain Goal: LTG-Verbalize [...] to address these barriers include . Normal [facility] 30 The patient is Moderately Stable - [...] fall risk status, and pain status Normal [facility] CBCon 11-20-2023 Erythrocyte distribution width (RBC) [Ratio] 15.8 % High 11.5-15.0 [facility] Comment on above: Performed By: #### L [id number] #### [facility] ([facility]) [address] [facility] [place] [address] ERYTHROCYTE MEAN CORPUSCULAR HEMOGLOBIN CONCENTRATION (G/DL) BY AUTOMATED 31.9 g/dL Low 32.0-35.0 [facility] Comment on above: Performed By: #### L [id number] #### [facility] [address] [place] [address] Hematocrit (Bld) [Volume fraction] 36.1 % Normal 36.0-48.0 [facility] Comment on above: Performed By: #### L [id number] #### [facility] [address] [place] [address] Hemoglobin (Bld) [Mass/Vol] 11.5 g/dL Low 12.0-15.0 [facility] Comment on above: Performed By: #### L [id number] #### [facility] [address] [place] [address] MCH (RBC) [Entitic mass] 27.4 pg Normal 27.0-33.0 [facility] Comment on above: Performed By: #### L [id number] #### [facility] [address] [place] [address] MCV (RBC) [Entitic vol] 86.2 fL Normal 82.0-98.0 [facility] Comment on above: Performed By: #### L [id number] #### [facility] ([facility]) [address] [place] [address] PLATELETS (10*3/UL) IN BLOOD AUTOMATED COUNT 388 10*3/uL Normal 150-400 [facility] Comment on above: Performed By: #### L [id number] #### [facility] [address] [place] [address] RBC (Bld) [#/Vol] 4.19 10*6/uL Normal 3.80-5.00 [facility] Comment on above: Performed By: #### L [id number] #### [facility] ([facility]) [address] [place] [address] WBC (Bld) [#/Vol] 9.02 10*3/uL Normal 4.00-10.60 [facility] Comment on above: Performed By: #### L [id number] #### [facility] ([facility]) [address] [place] [address] COMPREHENSIVE METABOLIC PANE Nacho 11-20-2023 Albumin [Mass/Vol] 3.8 g/dL Normal 3.5-5.7 [facility] Comment on above: Performed By: #### L [id number] #### [facility] ([facility]) [address] [place] [address] ALP [Catalytic activity/Vol] 118 U/L High 34-104 [facility] Comment on above: Performed By: #### L [id number] #### [facility] ([facility]) [address] [place] [address] ALT [Catalytic activity/Vol] 19 U/L Normal 7-52 [facility] Comment on above: Performed By: #### L [id number] #### [facility] ([facility]) [address] [place] [address] Anion gap [Moles/Vol] 9 mmol/L Normal 7-20 [facility] Comment on above: Performed By: #### L [id number] #### [facility] ([facility]) [address] [place] [address] AST [Catalytic activity/Vol] 28 U/L Normal 13-39 [facility] Comment on above: Performed By: #### L [id number] #### [facility] ([facility]) [address] [place] [address] Bilirubin [Mass/Vol] 0.6 mg/dL Normal 0.3-1.0 [facility] Comment on above: Performed By: #### L [id number] #### [facility] ([facility]) [address] [place] [address] Calcium [Mass/Vol] 8.9 mg/dL Normal 8.6-10.3 [facility] Comment on above: Performed By: #### L [id number] #### [facility] [address] [place] [address] Chloride [Moles/Vol] 101 mmol/L Normal 98-107 [facility] Comment on above: Performed By: #### L [id number] #### [facility] [address] [place] [address] CO2 [Moles/Vol] 29 mmol/L Normal 21-31 [facility] Comment on above: Performed By: #### L [id number] #### [facility] ([facility]) [address] [place] [address] Creatinine [Mass/Vol] 0.75 mg/dL Normal 0.60-1.20 [facility] Comment on above: Performed By: #### L [id number] #### [facility] ([facility]) [address] [place] [address] GLOMERULAR FILTRATION RATE ML/MIN/1.73 SQ M.PREDICTED 85.1 mL/min/1.73m*2 Normal >60.0 [facility] Comment on above: Result Comment: The [facility]???s estimated glomerular filtration rate (eGFR) will no [...] group of individuals. Performed By: #### L [id number] #### [facility] [address] [place] [address] Glucose [Mass/Vol] 116 mg/dL High 70-100 [facility] Comment on above: Performed By: #### L [id number] #### [facility] [address] [place] [address] Potassium [Moles/Vol] 4.2 mmol/L Normal 3.5-5.1 [facility] Comment on above: Performed By: #### L [id number] #### [facility] ([facility]) [address] [place] [address] Protein [Mass/Vol] 7.0 g/dL Normal 6.0-8.3 [facility] Comment on above: Performed By: #### L [id number] #### [facility] ([facility]) [address] [place] [address] Sodium [Moles/Vol] 135 mmol/L Low 136-145 [facility] Comment on above: Performed By: #### L [id number] #### [facility] ([facility]) [address] [place] [address] Urea nitrogen [Mass/Vol] 12 mg/dL Normal 7-25 [facility] Comment on above: Performed By: #### L [id number] #### [facility] ([facility]) [address] [place] [address] UREA NITROGEN/CREATININE (MASS RATIO) IN SER/PLAS 16.0 Normal [facility] Comment on above: Performed By: #### L [id number] #### [facility] ([facility]) [address] [place] [address] CONSULTon 11-20-2023 CONSULT Clinical Nutrition Assessment: Name: Angie Watt Room: [address] [place] [address] Date: 1950 Date of Visit: 11/20/23 Admission [...] Last BM 11/18; c/o N/V/D 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 CT [...] (11/20/2023). 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, although reported that she has been [...] ideal body weight (59.1 kg) Calorie needs: 0224-1618 kcals/day based on Equation: 25-30 kcal/kg Protein [...] Hand Grasp: Moderate L Hand Grasp: Moderate (Payroll Representative strength not assessed by RD) Patient at risk for malnutrition according to hospital criteria, but does not meet the clinical characteristics per the Academy of Nutrition and Dietetics, and the [place] [employer] of Enteral and Parenteral Nutrition to [...] (magnesium, phosphorus, BMP) Contact the dietitian via [employer] chat 8A-4P Saturday through Saturday or call extension [phone]. For weekends & holidays, the dietitian can be reached via pager [phone] from 9A-3P. Unable to respond to [employer] chat messages on Saturday & . Normal [facility] HPon 11-20-2023 HP -- Attestation signed by Saida Lai MD at 11/21/2023 8:37 AM Attending Physician Statement I have discussed the case, including pertinent history and exam findings with Dr. Tanner, surgical assistant and have personally seen the patient. I agree with the assessment, plan and orders as documented. [phone] pager [phone] phone [facility] General Surgery HISTORY & PHYSICAL Reason for Admission: diverticulitis History of Present Illness: Angie Watt is a 73 y.o. female with PMH of atrial fibrillation s/p ablation on amiodarone and eliquis, HTN, hypothyroidism, and sleep apnea and past surgical history of a cholecystectomy who presents to [facility] as a direct transfer from [facility] with diverticulitis. Pt had been having on [...] Atrial fib (more content not included)... Normal [facility] LACTIC ACID, PLASMAon 2023 LACTATE (MMOL/L) IN SER/PLAS 1.2 mmol/L Normal 0.5-2.2 [facility] Comment on above: Performed By: #### L [id number] #### [facility] ([facility]) [address] [place] [address] NURSNOTEon 11-20-2023 NURSNOTE Bedside reporting done, per China RN and Maia RN No complaints at this time [facility] NURSNOTE Pt sits up at side o f bed, no c/o of pain, or SOB at this time Telemetry cont. On pt IV intact, no redness noted Pulse ox--98% on room air Pt. Up walking around in room for 10 min at 1830 pm [facility] NURSNOTE Pt up walking around in room, tolerates well , with walker. [facility] ULISESNOTTerry Lai notified th at we need admission orders. Notified via secure [employer] chat. [facility] NURSNOTE Pt arrived as a dire ct admission from [facility], no c/o of pain or SOB at this time Assessment completed Telemetry started on pt. Bed alarm on [facility] PHOSPHORUSon 11-20-2023 Magnesium [Mass/Vol] 2.5 mg/dL Normal 1.9-2.7 [facility] Comment on above: Performed By: #### L [id number] #### [facility] ([facility]) [address] [place] [address] Performed By: #### L [id number] #### [facility] ([facility]) [address] [place] [address] PROTIME-INRon 11-20-2023 INR IN PPP BY COAGULATION ASSAY 1.27 High 0.90-1.10 [facility] Comment on above: Result Comment: ACCC P [...] 1995;[id number]. Performed By: #### L [id number] #### [facility] ([facility]) [address] [place] [address] PROTHROMBIN TIME (PT) IN PPP BY COAGULATION ASSAY 15.8 Seconds High 12.3-14.8 [facility] Comment on above: Performed By: #### L [id number] #### [facility] ([facility]) [address] [place] [address] 36on 08-01-2023 36 Regarding echo performed on 06/27/2023: Echo is stable per Lissa Spencer CNP. I called patient and made her aware. She asked about her lab work. I told her we didn't have a copy of it in her chart. Labs were then obtained from [facility] portal and uploaded into her media services coordinator for Lissa's review. I told her I'd call her back if he didn't like the results. She thanked me and verbalized understanding. [facility] Orders Onlyon 06-25-2023 Orders Only [id number] Angie Watt 1950 F Date Provider Department Center 06/25/2023 Radha8DELFINA NELSON Family History Problem Relation Age of Onset Heart attack Father Atrial fibrillation Father Atrial fibrillation Sister Family Status - Relation Status Age at Father Sister [facility] Office Visiton 06-18-2023 Follow-up visit [id number] Angie Watt 1950 F Date Provider Department Center 06/18/2023 1596-LISSA SPENCER Family History Problem Relation Age of Onset Heart attack Father Atrial fibrillation Father Atrial fibrillation Sister Family Status - Relation Status Age at Father Sister Level of Service:14179 CA OFFICE/OUTPATIENT ESTABLISHED MOD MDM 30 MIN Normal [facility] Orders Onlyon 02-20-2023 Orders Only [id number] Angie Watt 1950 F Date Provider Department Center 02/20/2023 VALENTE LYNN [facility] Family History Problem Relation Age of Onset Heart attack Father Atrial fibrillation Father Atrial fibrillation Sister Family Status - Relation Status Age at Father Sister Normal [facility] Covid-19 PCR (CVDTB)on 02-16 SARS-CoV-2 (COVID-19) RNA SP+probe Ql (Unsp spec) Not detected Normal NOT DETECTED [facility] Comment on above: Result Comment: When diagnostic [...] for this test is supported by the [employer] [place] Helper of Health and Human Service's declaration [...] used). Performed By: #### C VDTB #### [facility] [address] [address] [address] Maik Singleton BASIC METABOLIC PANELon 07-19 Calcium [Mass/Vol] 8.1 mg/dL Low 8.6-10.3 [facility] Comment on above: Order Comment: No: D o not add to previous draw Performed By: #### 1 0070, [id number] #### [facility] [address] [place] [address], [facility] Chloride [Moles/Vol] 99 mmol/L Normal 98-107 [facility] Comment on above: Order Comment: No: D o not add to previous draw Performed By: #### 1 69, [id number] #### [facility] [address] [place] [address], [place] CO2 [Moles/Vol] 27 mmol/L Normal 21-31 [facility] Comment on above: Order Comment: No: D o not add to previous draw Performed By: #### 1 69, 63865 #### [facility] [address] [place] [address], [place] Creatinine [Mass/Vol] 0.82 mg/dL Normal 0.60-1.20 [facility] Comment on above: Order Comment: No: D o not add to previous draw Performed By: #### 1 69, [id number] #### [facility] [address] [place] [address], [place] GFR/1.73 sq M.predicted among blacks MDRD (S/P/Bld) [Vol rate/Area] mL/min/{1.73_m2} Normal >60 [facility] Comment on above: Order Comment: No: D o not add to previous draw Performed By: #### 1 69, 15923 #### [facility] [address] [place] [address], [place] GFR/1.73 sq M.predicted among non-blacks MDRD (S/P/Bld) [Vol rate/Area] mL/min/{1.73_m2} Normal >60 [facility] Comment on above: Order Comment: No: D o not add to previous draw Performed By: #### 1 69, 04471 #### [facility] [address] [place] [address], [place] Glucose [Mass/Vol] 109 mg/dL High 70-100 [facility] Comment on above: Order Comment: No: D o not add to previous draw Performed By: #### 1 69, 50889 #### [facility] [address] [place] [address], [place] Potassium [Moles/Vol] 4.0 mmol/L Normal 3.5-5.1 [facility] Comment on above: Order Comment: No: D o not add to previous draw Performed By: #### 1 69, 10603 #### [facility] [address] [place] [id number], [facility] Sodium [Moles/Vol] 134 mmol/L Low 136-145 [facility] Comment on above: Order Comment: No: D o not add to previous draw Performed By: #### 1 69, 90758 #### [facility] [address] [place] [address], [facility] Urea nitrogen [Mass/Vol] 12 mg/dL Normal 7-25 [facility] Comment on above: Order Comment: No: D o not add to previous draw Performed By: #### 1 69, [id number] #### [facility] [address] CBC COMPLETE BLOOD COUNTon 0 - Erythrocyte distribution width (RBC) [Ratio] 15.5 % High 11.5-15.0 [facility] Comment on above: Order Comment: No: D o not add to previous draw Performed By: #### 5 0608 #### [facility] [address] [place] [address], [facility] Hematocrit (Bld) [Volume fraction] 36.9 % Normal 36.0-45.0 [facility] Comment on above: Order Comment: No: D o not add to previous draw Performed By: #### 5 0608 #### [facility] [address] [place] [id number], [facility] Hemoglobin (Bld) [Mass/Vol] 11.5 g/dL Low 12.0-15.0 [facility] Comment on above: Order Comment: No: D o not add to previous draw Performed By: #### 5 0608 #### [facility] [address] [place] [address], [facility] MCH (RBC) [Entitic mass] 27.1 pg Normal 27.0-33.0 [facility] Comment on above: Order Comment: No: D o not add to previous draw Performed By: #### 5 0608 #### [facility] [address] [place] [id number], [facility] MCHC (RBC) [Mass/Vol] 31.2 g/dL Low 32.0-35.0 [facility] Comment on above: Order Comment: No: D o not add to previous draw Performed By: #### 5 0608 #### [facility] [address] [place] [address], [facility] MCV (RBC) [Entitic vol] 87.0 fL Normal 82.0-98.0 [facility] Comment on above: Order Comment: No: D o not add to previous draw Performed By: #### 5 0608 #### [facility] [address] [facility] [place] [address], [facility] Nucleated RBC/100 WBC (Bld) [Ratio] 0 % Normal 0-0 [facility] Comment on above: Order Comment: No: D o not add to previous draw Performed By: #### 5 0608 #### [facility] [address] [place] [id number], [facility] PLAT CNT 258 10*3/uL Normal 150-400 [facility] Comment on above: Order Comment: No: D o not add to previous draw Performed By: #### 5 0608 #### [facility] [address] [facility]. [place] [id number], [facility] RBC (Bld) [#/Vol] 4.24 10*6/uL Normal 3.80-5.00 [facility] Comment on above: Order Comment: No: D o not add to previous draw Performed By: #### 5 0608 #### [facility] [address] [place] [address], [facility] WBC (Bld) [#/Vol] 10.20 10*3/uL Normal 4.00-10.60 [facility] Comment on above: Order Comment: No: D o not add to previous draw Performed By: #### 5 0608 #### [facility] [address] [facility]. [address] MAGNESIUM BLOODon 08-10-2021 Magnesium [Mass/Vol] 2.2 mg/dL Normal 1.9-2.7 [facility] Comment on above: Order Comment: No: D o not add to previous draw Performed By: #### 1 0070, [id number] #### [facility] [address] APTTon 08-09-2021 aPTT Coag (Bld) [Time] 26.9 s Normal 25.0-35.0 [facility] Comment on above: Result Comment: ALL RESULTS [...] THIS PURPOSE. Performed By: #### 5 6101, [id number] #### [facility] [address] [facility] [place] [address], [facility] CBC W/DIFFon 08-09-2021 ABS IMM GRANS 0.0 10*3/uL Normal 0.0-0.2 [facility] Comment on above: Performed By: #### 5 0103 #### [facility] [address] [facility] [place] [address], [facility] ABS NEUTROPHILS 5.1 10*3/uL Normal 1.6-7.6 [facility] Comment on above: Performed By: #### 5 0103 #### [facility] [address] [facility] [address], [facility] Basophils (Bld) [#/Vol] 0.0 10*3/uL Normal 0.0-0.2 [facility] Comment on above: Performed By: #### 5 0103 #### [facility] [address] [place] [address], [facility] Basophils/100 WBC (Bld) 0.4 % Normal 0.0-1.0 [facility] Comment on above: Performed By: #### 5 0103 #### [facility] [address] [place] [address], [facility] Eosinophils (Bld) [#/Vol] 0.2 10*3/uL Normal 0.0-0.5 [facility] Comment on above: Performed By: #### 5 0103 #### [facility] [address] [place] [address], [facility] Eosinophils/100 WBC (Bld) 2.3 % Normal 0.0-6.0 [facility] Comment on above: Performed By: #### 5 0103 #### [facility] [address] [facility] [place] [address], [facility] Erythrocyte distribution width (RBC) [Ratio] 15.3 % High 11.5-15.0 [facility] Comment on above: Performed By: #### 5 0103 #### [facility] [address] [facility] [place] [address], [facility] Hematocrit (Bld) [Volume fraction] 37.4 % Normal 36.0-45.0 [facility] Comment on above: Performed By: #### 5 0103 #### [facility] [address] [facility] [place] [address], [facility] Hemoglobin (Bld) [Mass/Vol] 11.5 g/dL Low 12.0-15.0 [facility] Comment on above: Performed By: #### 5 0103 #### [facility] [address] [place] [address], [facility] IMMATURE GRANS 0.3 % Normal 0.0-1.0 [facility] Comment on above: Performed By: #### 5 0103 #### [facility] [address] [facility] [address], [facility] Lymphocytes (Bld) [#/Vol] 1.1 10*3/uL Low 1.2-4.0 [facility] Comment on above: Performed By: #### 5 0103 #### [facility] [address] [facility] [address], [facility] Lymphocytes/100 WBC (Bld) 16.1 % Low 20.0-45.0 [facility] Comment on above: Performed By: #### 5 3 #### [facility] [address] MCH (RBC) [Entitic mass] 26.9 pg Low 27.0-33.0 [facility] Comment on above: Performed By: #### 5 3 #### [facility] [address] MCHC (RBC) [Mass/Vol] 30.7 g/dL Low 32.0-35.0 [facility] Comment on above: Performed By: #### 5 3 #### [facility] [address] [place] [address], [facility] MCV (RBC) [Entitic vol] 87.4 fL Normal 82.0-98.0 [facility] Comment on above: Performed By: #### 5 3 #### [facility] [address] [place] [address], [facility] Monocytes (Bld) [#/Vol] 0.6 10*3/uL Normal 0.1-1.0 [facility] Comment on above: Performed By: #### 5 102 #### [facility] [address] [place] [address], [facility] MONOS 8.8 % Normal 5.0-12.0 [facility] Comment on above: Performed By: #### 102 #### [facility] [address] [facility] [place] [address], [facility] Neutrophils/100 WBC (Bld) 72.1 % High 40.0-72.0 [facility] Comment on above: Performed By: #### 102 #### [facility] [address] [facility] [address], [facility] Nucleated RBC/100 WBC (Bld) [Ratio] 0 % Normal 0-0 [facility] Comment on above: Performed By: #### 102 #### [facility] [address] [facility] [address], [facility] PLAT CNT 271 10*3/uL Normal 150-400 [facility] Comment on above: Performed By: #### 102 #### [facility] [address] [facility] [address], [facility] RBC (Bld) [#/Vol] 4.28 10*6/uL Normal 3.80-5.00 [facility] Comment on above: Performed By: #### 102 #### [facility] [address] [facility] [address], [facility] WBC (Bld) [#/Vol] 7.02 10*3/uL Normal 4.00-10.60 [facility] Comment on above: Performed By: #### 102 #### [facility] [address] COMP METABOLIC PANELon 08-09 Albumin [Mass/Vol] 3.8 g/dL Normal 3.5-5.7 [facility] Comment on above: Performed By: #### 0 012 #### [facility] [address] [facility] [address], [facility] ALKALINE PHOSPH 140 IU/L High 34-104 [facility] Comment on above: Performed By: #### 0 0121 #### [facility] [address] [place] [address], [place] ALT [Catalytic activity/Vol] 13 U/L Normal 7-52 [facility] Comment on above: Performed By: #### 0 0121 #### [facility] [address] [place] [address], [place] AST [Catalytic activity/Vol] 17 U/L Normal 13-39 [facility] Comment on above: Performed By: #### 0 0121 #### [facility] [address] [place] [address], [place] Bilirubin [Mass/Vol] 0.5 mg/dL Normal 0.3-1.0 [facility] Comment on above: Performed By: #### 0 0121 #### [facility] [address] [place] [address], [place] Calcium [Mass/Vol] 8.7 mg/dL Normal 8.6-10.3 [facility] Comment on above: Performed By: #### 0 0121 #### [facility] [address] [place] [address], [place] Chloride [Moles/Vol] 104 mmol/L Normal 98-107 [facility] Comment on above: Performed By: #### 0 0121 #### [facility] [address] [place] [address], [place] CO2 [Moles/Vol] 28 mmol/L Normal 21-31 [facility] Comment on above: Performed By: #### 0 0121 #### [facility] [address] [place] [address], [place] Creatinine [Mass/Vol] 0.74 mg/dL Normal 0.60-1.20 [facility] Comment on above: Performed By: #### 0 0121 #### [facility] [address] [place] [address], [place] GFR/1.73 sq M.predicted among blacks MDRD (S/P/Bld) [Vol rate/Area] mL/min/{1.73_m2} Normal >60 [facility] Comment on above: Performed By: #### 0 0121 #### [facility] [address] [place] [address], [facility] GFR/1.73 sq M.predicted among non-blacks MDRD (S/P/Bld) [Vol rate/Area] mL/min/{1.73_m2} Normal >60 [facility] Comment on above: Performed By: #### 0 0121 #### [facility] [address] [place] [address], [facility] Glucose [Mass/Vol] 116 mg/dL High 70-100 [facility] Comment on above: Performed By: #### 0 0121 #### [facility] [address] [place] [address], [facility] Potassium [Moles/Vol] 3.9 mmol/L Normal 3.5-5.1 [facility] Comment on above: Performed By: #### 0 0121 #### [facility] [address] [place] [id number], [facility] Protein [Mass/Vol] 6.4 g/dL Normal 6.0-8.3 [facility] Comment on above: Performed By: #### 0 0121 #### [facility] [address] [place] [address], [facility] Sodium [Moles/Vol] 138 mmol/L Normal 136-145 [facility] Comment on above: Performed By: #### 0 0121 #### [facility] [address] [place] [address], [facility] Urea nitrogen [Mass/Vol] 10 mg/dL Normal 7-25 [facility] Comment on above: Performed By: #### 0 0121 #### [facility] [address] [place] [id number] Cardiovascular Lab Reporton 08-09-2021 Cardiovascular Lab Report [facility] Patient Name: Angie Watt [facility] MR #: [id number] Physician: Charli Pulido MD Department of Service Date: 08/09/2021 Medicine Birthdate: 1950 Division of Room #: [id number] Cardiology Adult Cardiovascular Services Formerly [facility] [address] [place] [id number] Cardiovascular Laboratory Report ATRIAL FIBRILLATION ABLATION PROCEDURE [...] in Afib. Esophagus was mapped using the [employer] 3D mapping software with quadripolar catheter and [...] perform (more content not included)... Normal [facility] POC GLUCOSE LABon 08-09-2021 Glucose [Mass/Vol] 107 mg/dL High 70-100 [facility] Comment on above: Performed By: #### 8 5499 #### [facility] [address] [place] [address], [facility] PROTHROMBIN TIMEon INR Coag (PPP) [Relative time] 1.01 {INR} Normal 0.91-1.16 [facility] Comment on above: Result Comment: ACCC P [...] CHEST 1995;108:231S-246S. Performed By: #### 5 6101, [id number] #### [facility] [address] [place] [address], [facility] PT Coag (PPP) [Time] 13.3 s Normal 12.3-14.8 [facility] Comment on above: Result Comment: ALL RESULTS MUST BE INTERPRETED WITH RESPECT TO BLOOD DRAWING ARTIFACT OR DILUTION ERROR OF ANTICOAGULANT AT THE TIME OF SAMPLING. Performed By: #### 5 7911, [id number] #### [address] [address], [facility] CTA CHESTon 08-08-2021 CTA CHEST [facility] Department of Radiology [address] [place] [id number] ======== Patient Name: ANGIE WATT : 1950 Sex: F Age: Race: White Pt. Location: Patient Status: O Ordered Date: 07/27/2021 1:35:00 PM Completed Date: 08/08/2021 12:58 PM Requesting Provider: CHARLI PULIDO Attending Provider: CHARLI PULIDO Report Copy To: KERRI SMITH Signs & Symptoms: I48.0 Paroxysmal atrial fibrillation I10 History: [place] patient will need labs need to schedule [...] examination. Electronically signed: Audrey Umana. Transcribed by: [email or web address], User Resident: Electronically Signed by: AUDREY UMANA @ 08/08/2021 03:05 PM Normal [facility] Comment on above: Order Comment: Gavin Ablation 08/09/21 Covid-19 PCR (CVDTB)on 05-18 SARS-CoV-2 (COVID-19) RNA SP+probe Ql (Unsp spec) Not detected Normal NOT DETECTED The [facility] Comment on above: Result Comment: This test is not yet approved or cleared by the [place] FDA. When there are no FDA-approved or cleared tests available, and other criteria are met, FDA can make tests available under an emergency access mechanism called an Emergency Use Authorization (EUA). The EUA for this test is supported by the [place] of Health and Human Service's (HHS's) [...] consistent with SARS-CoV-2. Performed By: #### C [facility] #### [facility] [address] [place] [address] Dr. Maik Singleton Vital Signs Date Time Vital Sign Value Performing Clinician Gustabo burris 01-21-2024 14:18-0400 Blood Pressure Location [employer] [facility] 01-21-2024 14:18-0400 Diastolic blood pressure 78 mm[Hg] Pasha [employer] [facility] 01-21-2024 14:18-0400 Heart rate 72 /min Pasha PETERL [facility] 01-21-2024 14:18-0400 Respiratory rate 16 /min Pasha PETERL [facility] 01-21-2024 14:18-0400 Systolic blood pressure 136 mm[Hg] Pasha BACH [facility] Encounters Encounter Date Encounter Type Care Provider Facility Start: 02-11-2024 ambulatory SAIDA LAI [facility] Start: 01-29-2024 [facility]: 01-29-2024 Evaluation and manag ement of inpatient IRMA SIMMONSLEY [facility] Start: 01-28-2024 End: 02-02-2024 Evaluation and management of inpatient KERRI SMITH [facility] Start: 01-21-2024 End: 01-21-2024 ambulatory Pasha BACH Facility:[facility] Start: 01-21-2024 End: 01-21-2024 Patient encounter procedure Pasha BACH [facility] Start: 12-24-2023 ambulatory RIZWANA CONNORS [facility] Start: 11-26-2023 ambulatory Pasha BACH Facility:[facility] Start: 11-21-2023 Evaluation and manag ement of inpatient [facility] Start: 11-20-2023 Evaluation and manag ement of inpatient ROHIT DELCID [facility] Start: 11-20-2023 End: 11-22-2023 Evaluation and management of inpatient EDUARDO WALKER [facility] Start: 06-18-2023 End: 06-18-2023 ambulatory LISSA [facility] Start: 03-07-2022 End: 03-07-[address] KERRI SMITH Facility: Start: 08-09-2021 End: 08-10-2021 ambulatory KERRI SMITH Facility:[facility] Start: 06-18-2021 Encounter for preprocedural laboratory examination CHARLI PULIDO [facility] Start: 06-14-2021 End: 06-14-[address] DOCTOR DIXON Facility:[facility] Start: 06-12-2021 End: 06-12-2021 ambulatory CHARLI PULIDO Facility:[facility] Start: 06-12-2021 End: 06-12-2021 Encounter for preprocedural laboratory examination CHARLI PULIDO Facility:[facility] Procedures Date Procedure Procedure Detail Performing Clinician Cardiac radiofrequen cy ablation using ultrasound guidance Pasha BACH Cholecystectomy Pasha [facility] Immunizations Immunization Date Immunization Notes Care Provider Fa cili 04-11-2022 SARS-CoV-2 mRNA (iiuodbcbawq-bsod-tpmwm se) vaccine Pasha BACH [facility] Comment on above: Result Comment: 2023: [id number] 02-14-2022 SARS-CoV-2 mRNA (dpewxqtvema-mbwu-pksiv se) vaccine Pasha BACH [facility] Comment on above: Result Comment: 2023: [id number] Payers Date Payer Category Payer Medicare [id number] 1959 Private Health Insurance [id number] 1950 Unknown [id number] [id number] 1950 Unknown [id number] [id number] [id number] 1950 Unknown [id number] [id number] [id number] 1950 Unknown [id number] [id number] [id number] 1950 Unknown [id number] 2.16.8 [id number] Social History Date Type Detail Facility Start: 01-21-2024 Tobacco smoking status Ex-smoker (fi nding) [facility] Tobacco smoking status Never [facility] Sex Assigned At Female [facility] Functional Status Date Assessment Result Facility 01-21-2024 Functional Status N/A [facility] Clinical Notes 06-14-2021 to 02-12-2024 Note Date & Type Note Facility 02-12-2024 Note RCRI=2 points Class III Risk 10.1 % 30-day risk of , CT, or cardiac arrest From a cardiac perspective [...] prevent any major fluid shifts. Rizwana Connors [facility] Cardiology Available 7a-5pm via [employer] Chat Pager [phone] [facility] 02-11-2024 Note Subjective Patient ID: Angie Watt [...] past 36 hour(s)). No follow-ups on file. [facility] 02-10-2024 Note General Surgery Offi ce/Clinic Note Chief Complaint consultation for diverticulitis HPI Staff 73 year old female presents on consultation from Dr. Smith for diverticulitis. Presented to [place] ED 11/19/23 with complaint of abdominal pain and nausea. CT ABD with sigmoid diverticulitis with concern for possible megacolon. [facility]. Never had colonoscopy in the past. On Eliquis for a.fib. Reports two additional episodes of abdominal pain, constipation and nausea [facility]. Both episodes she presented to [place] ED with CT's completed both times. History of Present Illness 73 yo female with h/o atrial fibrillation, on Eliquis, DMII, htn, hyperlipidemia, hypothyroidism, KYLEE, chronic diverticular disease, referred for recurrent diverticulitis with possible diverticular stricture verses colonic mass; patient has had problems since October; was in [place] ED 11/19/23 had abd/pelvic ct scan with evidence of sigmoid diverticulitis and dilated proximal colon; transferred to [facility]; reportedly treated with antibiotics and discharged; [...] BMI 40.0-44.9, ad (more content not included)... [facility] Comment on above: Result Comment: Elec tronically [...] 's note and agree with the documentation [facility] General Surgery DAILY PROGRESS NOTE Subjective [...] L4-L5. Impression: *Circum (more content not included)... [facility] 02-02-2024 Note Hospital Medicine Discharge Summary Final [...] and Anxiety. She has been sent from [facility] where she was admitted on January 26 [...] Admission: General Surgery Dear Dr. Nuzhat MD, [place] is advised to follow up with you [...] Espitia MD Hospit (more content not included)... [facility] 02-01-2024 Note Attestation signed by Clyde Wayne MD at 02/02/2024 8:21 AM GC: I saw this patient. I personally was physically present for the critical/king portions that determines the level of service. I was directly involved in the management and treatment plan of the patient. I reviewed resident Italo Stewart MD 's note and agree with the documentation [facility] General Surgery DAILY PROGRESS NOTE Subjective [...] up to 2. (more content not included)... [facility] 02-01-2024 Note Hospital Medicine Daily Progress Note - 02/01/2024 11:38 AM; Room: [address] [place] [address] Admission: 01/28/2024 6:04 PM; Length of stay: 4 days THE HOSPITALIST TEAM PREFERS TO USE [employer] CHAT FOR COMMUNICATION 7AM-7PM. IF I DO NOT RESPOND WITHIN 15 MINUTES, PLEASE PAGE ME/CALL THROUGH THE MANAGER CAFE. FROM 7PM-7AM, PLEASE PAGE [phone](COVR) Code Status: Full Code Barriers to Discharge: [...] , FREET4 , CORTISOL , FEV1 , VMA2XMX , DLCO , RVSP , HDL , [...] a separate workstat (more content not included)... [facility] 01-31-2024 Note Patient: Angie Watt Procedure Summary Date: 01/31/24 Room / Location: [facility] OPERATING ROOM 01 / [facility] Operating Room Anesthesia Start: 162 Anesthesia Stop: [...] per anesthesia protocol. No notable events documented. [facility] 01-31-2024 Note Patient: Angie Watt Procedure Summary Date: 01/31/24 Room / Location: [facility] OPERATING ROOM 01 / [facility] Operating Room Anesthesia Start: 1628 Anesthesia Stop: Procedure: COLONOSCOPY Diagnosis: Stricture of colon (CMS/HCC) (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]) Surgeons: Saida Lai MD Responsible Provider: Reagan Ortiz MD Anesthesia Type: MAC ASA Status: 3 Anesthesia Post Transport Note Transport to: PACU O2 Route: room air Patient Monitor: direct observation Transport: uneventful Patient condition is: stable [facility] 01-31-2024 Note Patient: Angie Watt Procedure Information Date/Time: 01/31/24 1530 Procedure: COLONOSCOPY Location: [facility] OPERATING ROOM 01 / [facility] Operating Room Surgeons: Saida Lai MD Past [...] Plan discussed with CAA. Additional Equipment Requests [facility] 01-31-2024 Note 01/31/24 7134 Admission Assessment Questions Verify insurance with patient [...] Status Interested Does the patient have a correctional counselor/case manager assigned to them through their insurance? [...] activate MyChart? Yes (email link sent to: [email or web address]) Screen completed with patient & daughter China present at bedside. Await medical stability : ?weekend dc pending results of today's Scope, Colonoscopy today, Nyasia on hold. Dc Plan : return Home, no needs. Daughter will transport home; Agreeable to iMeds. [facility] 01-31-2024 Note Attestation signed by Saida Lai MD at 01/31/2024 7:02 PM Attending Physician Statement I have discussed the case, including pertinent history and exam findings with Dr. Caruso, surgical assistant and have personally seen the patient. I agree with the assessment, plan and orders as documented. [phone] pager [phone] phone [facility] General Surgery DAILY PROGRESS NOTE Subjective [...] for malignancy. Colonosc (more content not included)... [facility] 01-31-2024 Note Hospital Medicine Daily Progress Note - 01/31/2024 8:21 AM; Room: [address] [place] [address] Admission: 01/28/2024 6:04 PM; Length of stay: 3 days THE HOSPITALIST TEAM PREFERS TO USE G-cluster CHAT FOR COMMUNICATION 7AM-7PM. IF I DO NOT RESPOND WITHIN 15 MINUTES, PLEASE PAGE ME/CALL THROUGH THE MANAGER CAFE. FROM 7PM-7AM, PLEASE PAGE [phone](COVR) Code Status: Full Code Barriers to Discharge: Colonoscopy today, Eliquis Held Expected Discharge Date: 1 day Discharge Destination: home Overview Patient is seen for evaluation and management of constipation with abdominal CT concerning for metastatic colon cancer. Subjective Ms. Angie Watt is a 73 year old female who was admitted from [facility] with a chief complaint of more than [...] oral, Daily beltran (more content not included)... [facility] 01-30-2024 Note Spiritual Care Note Patient name: Angie Watt Age: 73 y.o. Room: [address] [place] [address]- Angie has a good attitude but expressed [...] Hopeful;Frustrated Pastoral Intervention Emotional support Response Encouraged;Hopeful [facility] 01-30-2024 Note Hospital Medicine Daily Progress Note - 01/30/2024 9:02 AM; Room: [address] [place] [address] Admission: 01/28/2024 6:04 PM; Length of stay: 2 days THE HOSPITALIST TEAM PREFERS TO USE G-cluster CHAT FOR COMMUNICATION 7AM-7PM. IF I DO NOT RESPOND WITHIN 15 MINUTES, PLEASE PAGE ME/CALL THROUGH THE MANAGER CAFE. FROM 7PM-7AM, PLEASE PAGE [phone](COVR) Code Status: Full Code Barriers to Discharge: IV fluids, Need to restart OAC Expected Discharge Date: 1 day Discharge Destination: home Overview Patient is seen for evaluation and management of constipation with abdominal CT concerning for metastatic colon cancer. Subjective Ms. Angie Watt is a 73 year old female who was admitted from [facility] with a chief complaint of more than [...] will defer to (more content not included)... [facility] 01-30-2024 Note Attestation signed by Saida Lai MD at 01/31/2024 10:05 AM Attending Physician Statement I have discussed the case, including pertinent history and exam findings with Dr. Stewart, surgical assistant and have personally seen the patient. I agree with the assessment, plan and orders as documented. See the full colonoscopy on January 31, 2024. [phone] pager [phone] phone [facility] General Surgery DAILY PROGRESS NOTE Subjective [...] *Segment 4 hep (more content not included)... [facility] 01-29-2024 Note Attestation signed by Saida Lai MD at 01/31/2024 10:04 AM Attending Physician Statement I have discussed the case, including pertinent history and exam findings with Dr. Stewart, surgical assistant and have personally seen the patient. I agree with the assessment, plan and orders as documented. Proceed for colonoscopy on January 31, 2024. [phone] pager [phone] phone [facility] General Surgery DAILY PROGRESS NOTE Subjective [...] 3.6 cm. Fusiform (more content not included)... [facility] 01-29-2024 Note Hospital Medicine History and Physical 01/29/2024 1:08 AM THE HOSPITALIST TEAM PREFERS TO USE [employer] IT FOR COMMUNICATION 7AM-7PM. IF I DO NOT RESPOND WITHIN 15 MINUTES, PLEASE PAGE ME/CALL THROUGH THE MANAGER CAFE. FROM 7PM-7AM, PLEASE PAGE [phone](COVR) Chief Complaint No chief complaint on file. History of Present Illness Angie Watt is an 73 y.o. female admitted from [facility] with chief complaint of diffuse abdominal discomfort bloating and nausea since more than a week pain generalized all over her belly nonradiating had constipation since past 4 to 5 days has been having persistent nausea worse with eating but no vomiting patient was seen in the ER at [facility] had workup done including CBC which showed [...] hospital who recommended patient be transferred to [facility]. At the time of examination patient appeared [...] this hospital stay by a member of [facility] Medicine. Past Medical History Past Medical History: Diagnosis Date Abnormal ECG Arrhythmia Atrial fibrillation (CMS/HCC) Hypertension Hypothyroidism Paroxysmal atrial fibrillation (CMS/HCC) 05/15/2022 Sleep apnea P (more content not included)... [facility] 12-24-2023 Note Hypertension is unch anged. Continue current medications. Blood pressure will be reassessed at the next regular appointment Continue to monitor at home- goal is < 130/80. [facility] 12-24-2023 Note [facility] CARDIOLOGY PROGR ESS NOTE HPI: Angie Watt is a 73 y.o. female here for routine F/U HPI 73 y.o. year old with past medical history of A-fib s/p PVI as well as posterior box isolation 07/2021, hypertension, HFpEF, anxiety. B/P at home 130-135/ 70-80 No episodes of A fib/flutter since last visit- she monitor with Sarta. Denied chest pain, SOB, orthopnea, palpitations. Recently was admitted for acute diverticulitis at [facility]. Previous HPI per [place] SPENCER np HPI: [...] PMHx: a.fib; HTN, anxiety FMHx: father - CT; sister - a.fib; father - a.fib Echocardiogram [...] Dorsalis pedis pulses (more content not included)... [facility] 12-24-2023 Note Patient here for 6 m [...] All other systems reviewed and are negative. [facility] 12-24-2023 Note [id number]= 3- age , Female, HTN Recent EKG sinus rhythm 11/20/23 - continues amiodarone 100mg daily, coreg and diltiazem -s/p PVI ([facility]) + Superior roof and Inferior line (posterior box isolation) + CTI 07/2021 -Continue yearly eye exams, and CXR/TSH/LFTs annually- pt refuses q 6months [facility] 11-22-2023 Note [facility] General Surgery DAILY PROGRESS NOTE Subjective [...] Casey Tanner MD PGY-1 General Surgery Resident [facility] 11-22-2023 Note Problem: Pain Goal: LTG-Verbalize decrease [...] and behaviors that affect risk of falls Tyro fall precautions as indicated by assessment Educate [...] exacerbated and prevent overall improvement and discharge [facility] 11-21-2023 Note Attestation signed by Saida Lai MD at 11/23/2023 2:06 PM Attending Physician Statement I have discussed the case, including pertinent history and exam findings with Dr. Tanner, surgical assistant and have personally seen the patient. I agree with the assessment, plan and orders as documented. 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 Maybe Screened via [facility]. Patient is from home, with daughter, and reports goal to return at discharge. She endorses utilization of a shower chair, walker, and CPAP at night. [facility] 11-20-2023 Note 11/20/23 0946 Admission Assessment Questions [...] Discharge? Yes Does the patient have a correctional counselor/case manager assigned to them through their insurance? [...] to send link and activate MyChart? No [facility] 06-18-2023 Note [facility] Consult Note Reason for visit: AF [...] PMHx: a.fib; HTN, anxiety FMHx: father - CT; sister - a.fib; father - a.fib Echocardiogram [...] No current facilit (more content not included)... [facility] 06-18-2023 Note Patient here for 6 m [...] All other systems reviewed and are negative. [facility] 06-14-2021 Note The [place], [place] NAME: ANGIE WATT A DATE OF : MEDICAL REC#: [id number] CENTRIFUGAL STATION OPERATOR: CASSIE DOMINGUEZ ADMIT DATE: 06/14/2021 08:37:00 NETWORK OPERATIONS SPECIALIST DATE: 06/20/2021 08:00 DICTATING PHYSICIAN: CHARLI PULIDO DICTATION DATE: 06/14/2021 18:00 duplicate entry Electronically Authenticated and Edited by: Charli Pulido MD on 12/05/2021 07:50 PM EDT The [place], [place] NAME: ANGIE WATT A DATE OF : MEDICAL REC#: [id number] CENTRIFUGAL STATION OPERATOR: CASSIE DOMINGUEZ ADMIT DATE: 06/14/2021 08:37:00 NETWORK OPERATIONS SPECIALIST DATE: 06/20/2021 08:00 DICTATING PHYSICIAN: CHARLI PULIDO [...] in an anterior/posterior direction. 360 joules of [place]'s cardioversion on two occasions did not convert [...] Approved by: CHARLI PULIDO 12/05/2021 19:42:00 The [facility] Evaluation + Plan note No data available for this section [facility] Hospital Discharge instructions No data available for this section [facility] Progress note No data available for this section [facility] Summary Purpose Family History No Family History Records FoundNo Family History Records Found No data available for this section No Family History Records FoundNo Family History Records Found Advance Directives No Advanced Directives Records FoundNo Advanced Directives Records FoundNo Advanced Directives Records FoundNo Advanced Directives Records Found Additional Source Comments INFORMATION SOURCE (unrecogn ized section and content) DATE CREATED AUTHOR 08/17/2021 [facility] DATE CREATED AUTHOR AUTHOR'S ORGANIZ ATION 05/19/2022 [facility] DATE CREATED AUTHOR AUTHOR'S ORGANIZ ATION 02/11/[address] [facility] DATE CREATED AUTHOR AUTHOR'S ORGANIZ ATION 02/15/2024 [facility] Patient Care team informatio n (unrecognized section and content) Personnel Name: Kerri Smith MD Address: Address: [address] [place] [address] FOR RECORDS PERTAINING TO PATIENTS WHO ARE [...] BE BASED ON THE PRIMARY CLINICAL RECORDS. [facility]. provides no warranty or guarantee of the accuracy or completeness of information in this document.
[2024-03-08] MEDS: POTASSIUM CHLORIDE 10 MEQ ER TABLET 40 MEQ PO (17:09)
[2024-03-08] MEDS: POTASSIUM CHLORIDE IN WATER 10 MEQ/100 ML PREMIX 100 MEQ IV ×4 (18:06→23:00)
[2024-03-08] MEDS: DOCUSATE SODIUM 100 MG CAPSULE PO (20:04)
[2024-03-08] MEDS: CARVEDILOL 6.25 MG TABLET PO (20:04)
[2024-03-08] MEDS: APIXABAN 5 MG TABLET PO (20:04)
[2024-03-08] MEDS: OXYCODONE HCL 5 MG TABLET PO (20:04)
[2024-03-08] MEDS: MAALOX (MAG HYDROX/ALUMINUM HYD/SIMETH) 30 ML ORAL.SUSP PO (20:04)
[2024-03-08] MEDS: DOXEPIN HCL 25 MG CAPSULE 50 MG PO (22:05)
[2024-03-09] VITALS (18 sets, daily range): BP systolic 114–151; BP diastolic 65–79; PULSE 62–77; TEMP 36.5–36.7; O2SAT 92–97
[2024-03-09] MEDS: LEVOTHYROXINE SODIUM 25 MCG TABLET 50 MCG PO (05:35)
[2024-03-09 06:12] LABS: Basophils Percent Auto 0.2 % (0.2-2.0); Hematocrit 32.3 % (36.0-48.0); Hemoglobin 10.2 g/dL (12.0-16.0); Immature Granulocytes Abs Auto 0.07 10^3/uL (0.00-0.03); Immature Granulocytes Pct Auto 0.6 % (0.0-0.5); Lymphocytes Absolute Auto 0.8 10^3/uL (1.2-3.8); Lymphocytes Percent Auto 6.3 % (20.5-60.0); Mean Corpuscular HGB Conc 31.6 g/dL (29.9-35.2); Mean Corpuscular Hemoglobin 26.8 pg (26.7-34.0); Mean Platelet Volume 10.8 fL (9.5-13.5); Monocytes Absolute Auto 0.7 10^3/uL (0.3-0.8); Monocytes Percent Auto 5.7 % (1.7-12.0); Neutrophils Percent Auto 87.2 % (43.0-75.0); Platelet Count 359 10^3/uL (150-450); Red Cell Distribution Width 17.9 % (11.0-15.0); White Blood Count 12.6 10^3/uL (4.0-11.0)
[2024-03-09 06:36] LABS: Alanine Aminotransferase 12 U/L (14-59); Albumin Globulin Ratio 0.7; Albumin Level 2.4 g/dL (3.4-5.0); Alkaline Phosphatase 90 U/L (46-116); Anion Gap 7.5; Aspartate Amino Transferase 11 U/L (15-37); BUN Creatinine Ratio 40.3; Bilirubin Total 0.5 mg/dL (0.2-1.0); Calcium 8.4 mg/dL (8.5-10.1); Carbon Dioxide 30.6 mmol/L (21.0-32.0); Chloride 104 mmol/L (98-107); Estimated GFR (African America >60 (>=60); Estimated GFR (Non-African Ame >60 (>=60); Globulin 3.6 g/dL; Glucose 128 mg/dL (74-106); Potassium 3.1 mmol/L (3.5-5.1); Sodium 139 mmol/L (136-145)
--- NOTE | 2024-03-09 08:07 | P.HP_ITS ---
HPI H&P: HPI History of Present Illness Chief complaint: CONSTIPATED, NAUSEOUS, Abdominal Pain Narrative: Patient will to me from the office and from frequent hospitalizations for recurrent diverticulitis. She does have an impending surgery sometime in March for colon resection assuming her diverticulitis can maintain well- controlled. Patient was evaluated in the office and found to have recurrence of her acute diverticulitis, started on Cipro and Flagyl, after 3 days her pain was not improving and she presented to the emergency room. CT scan confirms the inflammation in the area of the previous stricture consistent with diverticulitis. She also had significant leukocytosis and hypokalemia. Patient is admitted When I saw patient up on the medical surgical floor she was resting somewhat uncomfortably secondary to pain in her abdomen. She has recurrent nausea and vomiting. She states anytime she skips anything, emesis this morning was more brown. Opioid HPI Opioid Management Most Recent Pain and Opioid Data: Last Pain Scale 0 03/09/24 07:57 Last Pain Assessment 03/09/24 07:57 Last ORT Total Score 0 03/08/24 16:18 Last ORT Risk Category Low Risk 03/08/24 16:18 Review of Systems ROS Status of ROS 10 or more systems reviewed and unremark able except as noted in history and below [facility] Medical History (Updated 03/08/24 @ 15:27 by Steven Langston MD) Abdominal pain ?R10.9 - Unspecified abdominal pain (ICD-10) Partial bowel obstruction ?K56.600 - Partial intestinal obstruction, unspecified as to cause (ICD-10) Partial obstruction of colon ?K56.600 - Partial intestinal obstruction, unspecified as to cause (ICD-10) Diverticulitis ?K57.92 - Diverticulitis of intestine, part unspecified, without perforation or abscess without bleeding (ICD-10) Hypertension ?I10 - Essential (primary) hypertension (ICD-10) A-fib ?I48.91 - Unspecified atrial fibrillation (ICD-10) Acute diverticulitis ?K57.92 - Diverticulitis of intestine, part unspecified, without perforation or abscess without bleeding (ICD-10) Abdominal pain ?R10.9 - Unspecified abdominal pain (ICD-10) Surgical History History of cholecystectomy ?Z90.49 - Acquired absence of other specified parts of digestive tract (ICD- 10) Family History Sister Family history of hypertension Father Family history of myocardial infarction Social History (Updated 01/27/24 @ 23:49 by Samara Borrero RN) Within the past year, how often did you have a drink containing alcohol: never Within the past year, how often did you have six or more drinks on one occasion: never Score interpretation: A score less than 3 is consistent with normal alcohol consumption. Smoking status: Former smoker Non-prescribed substance use: denies use Previous occupational history: retired Highest level of school completed/degree received: 10th grade Are you now , , , , never or living with a partner: In a typical week, how many times do you talk on the telephone with family, friends, or neighbors: 3 or more times per week How often do you get together with friends or relatives: twice per week How often do you attend nondenominational or oriental orthodox services: 4 or more times per year Do you belong to any clubs or organizations such as nondenominational groups unions, [employer] or athletic groups, or school groups: no Total score: 2 Score interpretation: A score of greater than or equal to 2 indicates the lowest level of social isolation. Little interest or pleasure in doing things: not at all Feeling down, depressed, or hopeless: nearly every day Feel stressed/tense/nervous/anxious/difficulty sleeping: not at all Do you think of yourself as: straight/heterosexual Gender Identity: female Meds Home Medications and Allergies Home Medications ?Medication ?Instructions ?Recorded ?Confirmed ?Type amiodarone 100 mg tablet 100 mg PO DAILY 11/19/23 03/08/24 History apixaban 5 mg tablet (Eliquis) 5 mg PO Q12H 11/19/23 03/08/24 History carvedilol 6.25 mg tablet 6.25 mg PO Q12H 11/19/23 03/08/24 History diltiazem HCl 180 mg capsule,24 180 mg PO DAILY 11/19/23 03/08/24 History hr,extended release (Tiadylt ER) doxepin 25 mg capsule 50 mg PO .pm 11/19/23 03/08/24 History irbesartan 300 mg tablet 300 mg PO DAILY 11/19/23 03/08/24 History levothyroxine 50 mcg tablet 50 mcg PO DAILY 11/19/23 03/08/24 History omeprazole 40 mg capsule,delayed 40 mg PO DAILY 11/19/23 03/08/24 History release linaclotide 72 mcg capsule 72 mcg PO DAILY 12/25/23 03/08/24 History (Linzess) doxepin 10 mg capsule 10 mg PO .QD 01/18/24 03/08/24 History Allergies Allergy/AdvReac Type Severity Reaction Status Date / Time No Known Drug Allergies Allergy Verified 03/08/24 13:19 Exam Constitutional Vital Signs, click to edit/add: Last Vital Signs Temp 97.8 F 03/09/24 07:57 Pulse 77 03/09/24 08:00 Resp 18 03/09/24 07:59 BP 151/70 H 03/09/24 07:57 Pulse Ox 97 03/09/24 07:57 O2 Del Method Room Air 03/09/24 07:57 Documenting provider has reviewed patient's vital signs: yes Common normals: apparent distress (Mild to moderate painful distress) Chest Common normals: inspection of chest normal Respiratory Common normals: normal respiratory effort and no retractions Cardio Common normals: regular rate and regular rhythm GI Common normals: Normal to inspection, nondistended, normoactive bowel sounds present and soft to palpation; tender Palpation: tender Details: LLQ and periumbilical and rebound tenderness present Extremity Common normals: normal to inspection, full ROM and normal capillary refill Neuro Common normals: oriented x3, CN's II-XII intact bilaterally and moves all extremities Results Labs Labs: Short CBC 03/08/24 03/09/24 Range/Units 13:38 05:50 WBC 11.7 H 12.6 H (4.0-11.0) 10^3/uL Hgb 11.1 L 10.2 L (12.0-16.0) g/dL Hct 34.9 L 32.3 L (36.0-48.0) % Plt Count 370 359 (150-450) 10^3/uL BMP 03/08/24 03/09/24 13:38 05:50 Sodium 138 139 Potassium 2.7 L* 3.1 L Chloride 103 104 Carbon Dioxide 30.1 30.6 BUN 20.0 H 25.0 H Creatinine 0.71 0.62 Glucose 120 H 128 H Calcium 8.9 8.4 L Liver Function 03/09/24 Range/Units 05:50 Total Bilirubin 0.5 (0.2-1.0) mg/dL AST 11 L (15-37) U/L ALT 12 L (14-59) U/L Alkaline Phosphatase 90 (46-116) U/L Albumin 2.4 L (3.4-5.0) g/dL Urine 03/08/24 Range/Units 15:00 Urine Color Yellow (YELLOW) Urine Clarity Clear (CLEAR) Urine pH 6.5 (5.0-9.0) Ur Specific [place] <=1.005 A (1.005-1.025) Urine Protein Negative (NEG/TRACE) mg/dL Urine Glucose (UA) Negative (NEGATIVE) mg/dL Assessment and Plan Assessment and Plan (1) Abdominal pain: (2) Partial bowel obstruction: (3) Diverticulitis: (4) Hypertension: Qualifiers: Hypertension type: primary hypertension Qualified Code(s): I10 - Essential (primary) hypertension Plan Admit findings: Leukocytosis, anemia, severe hypokalemia secondary to recurrent emesis secondary to acute diverticulitis. This is failed outpatient treatment. She was started on Cipro and Flagyl 3 days prior to admission. With her significant leukocytosis she is admitted for workup and treatment of same Acute diverticulitis-she also has chronic diverticulitis and is scheduled for colon resection, this episode will need to be treated prior to any surgical intervention. Start patient on IV Zosyn., Patient will require n.p.o. status for 24 to 36 hours to have the abdominal exam improve. Abdominal exam is much worse than in the office. Now with rebound tenderness Recurrent severe emesis-she states that is worse this morning. Will check an emergency acute abdominal series Leukocytosis-secondary to above-worse today. Left shift consistent with bacterial process. Adding antibiotics today Hypokalemia-on IV bolus today. Unable to give oral supplementation. Coronary artery disease-continue with home medications assuming no bowel obstruction on x-ray as outlined above Hypertension-hold off on home medications currently Atrial fibrillation-hold off on anticoagulation Hypothyroidism-holding medications while n.p.o. GERD-IV Protonix Admission status: Patient initially started as observation but with leukocytosis worse today, rebound tenderness on exam she is likely here 3 to 4 days with IV antibiotics. Secondary to failed outpatient treatment. Medically necessary treatment will cover over 2 midnights. Inpatient status
--- NOTE | 2024-03-09 08:10 | XR_ITS ---
The [address] [address] Patient Name: ANGIE WATT MRN: [id number] date: 1950 Sex: F Assigned Patient Location: [place] Current Patient Location: [place] Accession/Order Number: [id number] Exam Date: 03/09/2024 08:00 Report Date: 03/09/2024 08:25 At the request of: KERRI NOLAND Procedure: XR acute abdomen series EXAMINATION: XR acute abdomen series HISTORY: obstruction COMPARISON: 03/08/2023 FINDINGS: LUNGS: No infiltrate, pneumothorax, or pleural effusion. MEDIASTINUM: No abnormal widening. BOWEL GAS PATTERN: Posterior and small bowel loops. There is dilation of the hepatic flexure and splenic flexure with air-fluid levels. Paucity of air noted in the descending and sigmoid colon FREE AIR: None. CALCIFICATIONS: None significant. BONES: No fracture or visible bone lesion. OTHER: Negative. XR/XR acute abdomen series IMPRESSION: Clear lungs Persistent dilation of the colon with absent distal bowel gas suggesting a colonic obstruction Electronically authenticated by: MARIEL MONROE Date: 03/09/2024 08:25
[2024-03-09] MEDS: AMIODARONE HCL 200 MG TABLET 100 MG PO (08:53)
[2024-03-09] MEDS: HYOSCYAMINE SULFATE 0.125 MG TAB.SUBL 0.25 MG SL ×4 (08:53→21:04)
[2024-03-09] MEDS: PANTOPRAZOLE SODIUM 40 MG VIAL IV ×2 (09:08→21:04)
[2024-03-09] MEDS: PIPERACILLIN SODIUM/TAZOBACTAM 3.375 GM in 0.9 % SODIUM CHLORIDE 50 ML IV ×2 (09:08→16:25)
[2024-03-09] MEDS: POTASSIUM CHLORIDE 40 MEQ in 0.9 % SODIUM CHLORIDE 250 ML 67.5 MEQ IV (09:09)
[2024-03-09] MEDS: ONDANSETRON PF 4 MG/2 ML VIAL IV (09:14)
--- NOTE | 2024-03-09 10:49 | SWNOTE1 ---
SW met with pt to discuss dc needs. Pt lives at home with daughter. Her daughter works during day and is home in evening and over night. Pt uses a walker at home and has a cane as well. Pt does not have any services coming in at this time and does not feel she will need any. At this time pt has no anticipated discharge needs. Important Message from [employer] reviewed and discussed with patient. Pt. verbalized understanding and signed the form. Original given to patient and copy placed in patient?s chart.
[2024-03-10] VITALS (17 sets, daily range): BP systolic 126–128; BP diastolic 69–79; PULSE 68–81; TEMP 36.7–36.8; O2SAT 93–97; BMI 43.0
[2024-03-10] MEDS: PIPERACILLIN SODIUM/TAZOBACTAM 3.375 GM in 0.9 % SODIUM CHLORIDE 50 ML IV ×3 (00:43→17:23)
[2024-03-10] MEDS: HYOSCYAMINE SULFATE 0.125 MG TAB.SUBL 0.25 MG SL ×4 (05:02→21:10)
[2024-03-10 06:01] LABS: Basophils Percent Auto 0.3 % (0.2-2.0); Eosinophils Absolute Auto 0.1 10^3/uL (0.0-0.7); Eosinophils Percent Auto 1.2 % (0.9-7.0); Hemoglobin 10.3 g/dL (12.0-16.0); Immature Granulocytes Abs Auto 0.03 10^3/uL (0.00-0.03); Immature Granulocytes Pct Auto 0.3 % (0.0-0.5); Lymphocytes Absolute Auto 1.6 10^3/uL (1.2-3.8); Lymphocytes Percent Auto 17.2 % (20.5-60.0); Mean Corpuscular HGB Conc 31.2 g/dL (29.9-35.2); Mean Corpuscular Hemoglobin 27.2 pg (26.7-34.0); Mean Corpuscular Volume 87.3 fL (81.0-99.0); Mean Platelet Volume 10.5 fL (9.5-13.5); Monocytes Absolute Auto 0.6 10^3/uL (0.3-0.8); Monocytes Percent Auto 6.9 % (1.7-12.0); Neutrophils Absolute Auto 6.7 10^3/uL (1.4-6.5); Neutrophils Percent Auto 74.1 % (43.0-75.0); Platelet Count 393 10^3/uL (150-450); Red Blood Count 3.78 10^6/uL (4.20-5.40); Red Cell Distribution Width 18.6 % (11.0-15.0)
[2024-03-10 06:18] LABS: Alanine Aminotransferase 14 U/L (14-59); Albumin Globulin Ratio 0.7; Albumin Level 2.5 g/dL (3.4-5.0); Alkaline Phosphatase 95 U/L (46-116); Anion Gap 7.9; Aspartate Amino Transferase 15 U/L (15-37); BUN Creatinine Ratio 27.3; Bilirubin Total 0.4 mg/dL (0.2-1.0); Calcium 8.4 mg/dL (8.5-10.1); Chloride 108 mmol/L (98-107); Estimated GFR (African America >60 (>=60); Estimated GFR (Non-African Ame >60 (>=60); Globulin 3.5 g/dL; Glucose 94 mg/dL (74-106); Sodium 143 mmol/L (136-145)
[2024-03-10 06:20] LABS: Potassium 2.9 mmol/L (3.5-5.1)
--- NOTE | 2024-03-10 06:34 | P.PN_ITS ---
Progress Note: Subjective Subjective Interval history: Feels much better since NG tube was placed Exam Constitutional Vital Signs, click to edit/add: Last Vital Signs Temp 98.1 F 03/10/24 03:26 Pulse 69 03/10/24 06:05 Resp 18 03/10/24 03:26 BP 126/69 03/10/24 03:26 Pulse Ox 94 L 03/10/24 03:26 O2 Del Method Room Air 03/10/24 03:26 Documenting provider has reviewed patient's vital signs: yes Common normals: apparent distress (Mild to moderate painful distress) Chest Common normals: inspection of chest normal Respiratory Common normals: normal respiratory effort and no retractions Cardio Common normals: regular rate and regular rhythm GI Common normals: Normal to inspection, nondistended, normoactive bowel sounds present and soft to palpation; tender (Less than yesterday,) Palpation: tender (Persistent but improved) Details: LLQ and periumbilical and rebound tenderness present (Persistent but improved) Extremity Common normals: normal to inspection, full ROM and normal capillary refill Neuro Common normals: oriented x3, CN's II-XII intact bilaterally and moves all extremities Progress Note: Objective Labs Labs: Short CBC 03/10/24 Range/Units 05:43 WBC 9.0 (4.0-11.0) 10^3/uL Hgb 10.3 L (12.0-16.0) g/dL Hct 33.0 L (36.0-48.0) % Plt Count 393 (150-450) 10^3/uL BMP 03/09/24 03/10/24 05:50 05:43 Sodium 139 143 Potassium 3.1 L 2.9 L* Chloride 104 108 H Carbon Dioxide 30.6 30.0 BUN 25.0 H 18.0 Creatinine 0.62 0.66 Glucose 128 H 94 Calcium 8.4 L 8.4 L Liver Function 03/09/24 03/10/24 Range/Units 05:50 05:43 Total Bilirubin 0.5 0.4 (0.2-1.0) mg/dL AST 11 L 15 (15-37) U/L ALT 12 L 14 (14-59) U/L Alkaline Phosphatase 90 95 (46-116) U/L Albumin 2.4 L 2.5 L (3.4-5.0) g/dL Progress Note: A&P Assessment and Plan (1) Abdominal pain: (2) Partial bowel obstruction: (3) Diverticulitis: (4) Hypertension: Qualifiers: Hypertension type: primary hypertension Qualified Code(s): I10 - Essential (primary) hypertension Plan Admit findings: Leukocytosis, anemia, severe hypokalemia secondary to recurrent emesis secondary to acute diverticulitis. This is failed outpatient treatment. She was started on Cipro and Flagyl 3 days prior to admission. With her significant leukocytosis she is admitted for workup and treatment of same Acute diverticulitis result of bowel obstruction-she also has chronic diverticulitis and is scheduled for colon resection, this episode will need to be treated prior to any surgical intervention. White blood cell count improved since starting antibiotics yesterday. Check acute abdominal series to assess for obstruction resolution, minimal output through NG, if acute abdominal series looks improved will clamp NG, consider transfer if not improving Recurrent severe emesis-secondary to obstruction-see above Leukocytosis-secondary to above-improved today with starting of antibiotics yesterday Hypokalemia-on IV bolus today. Reassess Chem-8 at noonish and likely supplement again IV Coronary artery disease-holding oral medications until NG tube removed Hypertension-hold off on home medications currently Atrial fibrillation-hold off on anticoagulation Hypothyroidism-holding medications while n.p.o. GERD-IV Protonix Moderate protein calorie malnutrition-May need TPN if trending towards a permanent obstruction, Admission status: Patient initially started as observation but with leukocytosis worse today, rebound tenderness on exam she is likely here 3 to 4 days with IV antibiotics. Secondary to failed outpatient treatment. Medically necessary treatment will cover over 2 midnights. Inpatient status ?
--- NOTE | 2024-03-10 07:12 | XR_ITS ---
The [address] [address] Patient Name: ANGIE WATT MRN: [id number] date: 1950 Sex: F Assigned Patient Location: [place] Current Patient Location: [place] Accession/Order Number: [id number] Exam Date: 03/10/2024 08:00 Report Date: 03/10/2024 08:36 At the request of: KERRI NOLAND Procedure: XR acute abdomen series EXAMINATION: XR acute abdomen series HISTORY: follow up bowel obstruction COMPARISON: XR acute abdomen series 03/09/2024 FINDINGS: LUNGS: No infiltrate, pneumothorax, or pleural effusion. MEDIASTINUM: No abnormal widening. BOWEL GAS PATTERN: Air and fluid-filled abnormally distended loops of small bowel with fluid levels at similar level on upright view suggesting ileus. Small bowel is distended up to 4.6 cm. FREE AIR: None. CALCIFICATIONS: None significant. BONES: No fracture or visible bone lesion. OTHER: Negative. XR/XR acute abdomen series IMPRESSION: 1. No acute cardiopulmonary process. 2. Ileus versus distal small bowel obstruction. Ileus is favored, and has not significantly changed. Electronically authenticated by: ABRAHAN FRASER Date: 03/10/2024 08:36
[2024-03-10] MEDS: PANTOPRAZOLE SODIUM 40 MG VIAL IV ×2 (08:35→20:41)
[2024-03-10] MEDS: POTASSIUM CHLORIDE 40 MEQ in 0.9 % SODIUM CHLORIDE 250 ML 67.5 MEQ IV (08:35)
[2024-03-10 12:06] LABS: Anion Gap 6.6; BUN Creatinine Ratio 23.2; Calcium 8.6 mg/dL (8.5-10.1); Carbon Dioxide 33.6 mmol/L (21.0-32.0); Chloride 106 mmol/L (98-107); Estimated GFR (African America >60 (>=60); Estimated GFR (Non-African Ame >60 (>=60); Glucose 88 mg/dL (74-106); Potassium 3.2 mmol/L (3.5-5.1); Sodium 143 mmol/L (136-145)
--- NOTE | 2024-03-10 12:34 | DIETREC ---
TPN recommendation: Clinimix E 5/20 @ 100 mL/hour continuous to provide 2112 kcal and 120 gm PRO in 2400 mL TV.
[2024-03-10] MEDS: 0.9 % SODIUM CHLORIDE 250 ML 10 ML IV (17:23)
--- NOTE | 2024-03-10 18:56 | NUTR.NU ---
Dietitian consult completed; provided low-fiber diet education for diverticulitis. Pt is currently NPO and may need TPN if bowel obstruction does not resolve.. Dietitian contact info provided for questions or concerns in-house and following discharge. Nutrition assessment, including TPN recommendation (if needed), in chart.
[2024-03-11] VITALS (18 sets, daily range): BP systolic 116–153; BP diastolic 68–86; PULSE 70–86; TEMP 36.7–37; O2SAT 94–99
[2024-03-11 05:51] LABS: Basophils Percent Auto 0.4 % (0.2-2.0); Eosinophils Absolute Auto 0.2 10^3/uL (0.0-0.7); Eosinophils Percent Auto 2.3 % (0.9-7.0); Hematocrit 31.8 % (36.0-48.0); Hemoglobin 9.9 g/dL (12.0-16.0); Immature Granulocytes Abs Auto 0.04 10^3/uL (0.00-0.03); Immature Granulocytes Pct Auto 0.5 % (0.0-0.5); Lymphocytes Absolute Auto 1.8 10^3/uL (1.2-3.8); Lymphocytes Percent Auto 24.8 % (20.5-60.0); Mean Corpuscular HGB Conc 31.1 g/dL (29.9-35.2); Mean Corpuscular Hemoglobin 27.3 pg (26.7-34.0); Mean Corpuscular Volume 87.8 fL (81.0-99.0); Mean Platelet Volume 10.1 fL (9.5-13.5); Monocytes Absolute Auto 0.6 10^3/uL (0.3-0.8); Monocytes Percent Auto 8.1 % (1.7-12.0); Neutrophils Absolute Auto 4.7 10^3/uL (1.4-6.5); Neutrophils Percent Auto 63.9 % (43.0-75.0); Platelet Count 385 10^3/uL (150-450); Red Blood Count 3.62 10^6/uL (4.20-5.40); Red Cell Distribution Width 18.9 % (11.0-15.0); White Blood Count 7.4 10^3/uL (4.0-11.0)
[2024-03-11] MEDS: HYOSCYAMINE SULFATE 0.125 MG TAB.SUBL 0.25 MG SL ×4 (05:51→21:15)
[2024-03-11 06:10] LABS: Alanine Aminotransferase 15 U/L (14-59); Albumin Globulin Ratio 0.8; Albumin Level 2.6 g/dL (3.4-5.0); Alkaline Phosphatase 90 U/L (46-116); Anion Gap 8.4; Aspartate Amino Transferase 22 U/L (15-37); BUN Creatinine Ratio 18.6; Bilirubin Total 0.4 mg/dL (0.2-1.0); Calcium 8.4 mg/dL (8.5-10.1); Carbon Dioxide 30.7 mmol/L (21.0-32.0); Chloride 108 mmol/L (98-107); Estimated GFR (African America >60 (>=60); Estimated GFR (Non-African Ame >60 (>=60); Globulin 3.4 g/dL; Glucose 78 mg/dL (74-106); Potassium 3.1 mmol/L (3.5-5.1); Sodium 144 mmol/L (136-145)
--- NOTE | 2024-03-11 07:53 | XR_ITS ---
The [address] [address] Patient Name: ANGIE WATT MRN: [id number] date: 1950 Sex: F Assigned Patient Location: [place] Current Patient Location: [place] Accession/Order Number: [id number] Exam Date: 03/11/2024 08:05 Report Date: 03/11/2024 08:38 At the request of: KERRI NOLAND Procedure: XR acute abdomen series EXAMINATION: XR acute abdomen series HISTORY: follow up bowel obstruction vs ileus COMPARISON: No relevant comparison available. FINDINGS: LUNGS: No infiltrate, pneumothorax, or pleural effusion. MEDIASTINUM: No abnormal widening. BOWEL GAS PATTERN: A few tiny air-fluid levels scattered within the small bowel. Air within the hepatic and splenic flexures of the colon with fluid within transverse colon. FREE AIR: None. CALCIFICATIONS: None significant. BONES: No fracture or visible bone lesion. OTHER: Negative. XR/XR acute abdomen series IMPRESSION: 1. No bowel obstruction. Suspect resolution of previously seen ileus. Electronically authenticated by: ABRAHAN FRASER Date: 03/11/2024 08:38
--- NOTE | 2024-03-11 07:57 | P.PN_ITS ---
Progress Note: Subjective Subjective Interval history: Patient accidentally remove NG tube yesterday. She was having no further emesis so we left it out. Pain still in abdomen but feels overall better than admission for sure. Exam Constitutional Vital Signs, click to edit/add: Last Vital Signs Temp 98.6 F 03/11/24 03:32 Pulse 70 03/11/24 05:57 Resp 18 03/11/24 03:32 BP 136/80 03/11/24 03:32 Pulse Ox 94 L 03/11/24 03:58 O2 Del Method Room Air 03/11/24 03:58 Documenting provider has reviewed patient's vital signs: yes Common normals: apparent distress (Mild painful distress) Chest Common normals: inspection of chest normal Respiratory Common normals: normal respiratory effort and no retractions Cardio Common normals: regular rate and regular rhythm GI Common normals: Normal to inspection, nondistended, normoactive bowel sounds present and soft to palpation; tender (Still with persisting tenderness left and mid lower abdomen) Palpation: tender (Persistent but improved) Details: LLQ and periumbilical and rebound tenderness present (Rebound tenderness appears resolved) Extremity Common normals: normal to inspection, full ROM and normal capillary refill Neuro Common normals: oriented x3, CN's II-XII intact bilaterally and moves all extremities Progress Note: Objective Labs Labs: Short CBC 03/11/24 Range/Units 05:38 WBC 7.4 (4.0-11.0) 10^3/uL Hgb 9.9 L (12.0-16.0) g/dL Hct 31.8 L (36.0-48.0) % Plt Count 385 (150-450) 10^3/uL BMP 03/10/24 03/11/24 11:52 05:38 Sodium 143 144 Potassium 3.2 L 3.1 L Chloride 106 108 H Carbon Dioxide 33.6 H 30.7 BUN 16.0 13.0 Creatinine 0.69 0.70 Glucose 88 78 Calcium 8.6 8.4 L Liver Function 03/11/24 Range/Units 05:38 Total Bilirubin 0.4 (0.2-1.0) mg/dL AST 22 (15-37) U/L ALT 15 (14-59) U/L Alkaline Phosphatase 90 (46-116) U/L Albumin 2.6 L (3.4-5.0) g/dL Progress Note: A&P Assessment and Plan (1) Abdominal pain: (2) Partial bowel obstruction: (3) Diverticulitis: (4) Hypertension: Qualifiers: Hypertension type: primary hypertension Qualified Code(s): I10 - Essential (primary) hypertension Plan Admit findings: Leukocytosis, anemia, severe hypokalemia secondary to recurrent emesis secondary to acute diverticulitis. This is failed outpatient treatment. She was started on Cipro and Flagyl 3 days prior to admission. With her significant leukocytosis she is admitted for workup and treatment of same Acute diverticulitis resulting in bowel obstruction-she also has chronic diverticulitis and is scheduled for colon resection, this episode will need to be treated prior to any surgical intervention. White blood cell count remains stable, NG tube is out, will advance diet today. If there is no further emesis by tomorrow likely discharge tomorrow and will maintain on long-term antibiotics until it is completed Recurrent severe emesis-secondary to obstruction-see above Iron deficiency anemia-we will continue to monitor, down somewhat today, consider Hemoccults Leukocytosis-secondary to above-improved again today Hypokalemia-on IV bolus today. Persisting, IV bolus and hopefully starting oral medications later today Coronary artery disease-if tolerates clear liquid diet, will advance and restart home medications Hypertension-see above Atrial fibrillation-hold off on anticoagulation Hypothyroidism-holding medications while n.p.o. GERD-IV Protonix Moderate protein calorie malnutrition-hopefully starting diet today will not need TPN Admission status: Patient initially started as observation but with leukocytosis worse today, rebound tenderness on exam she is likely here 3 to 4 days with IV antibiotics. Secondary to failed outpatient treatment. Medically necessary treatment will cover over 2 midnights. Inpatient status, hopeful for discharge tomorrow if can tolerate diet today and pain remains unchanged after eating ?
[2024-03-11] MEDS: PANTOPRAZOLE SODIUM 40 MG VIAL IV ×2 (08:45→21:15)
[2024-03-11] MEDS: PIPERACILLIN SODIUM/TAZOBACTAM 3.375 GM in 0.9 % SODIUM CHLORIDE 50 ML IV ×3 (08:45→17:40)
--- NOTE | 2024-03-11 11:32 | SWNOTE1 ---
2nd notice of Important Message from [employer] reviewed with pt, no questions at this time.
[2024-03-11] MEDS: POTASSIUM CHLORIDE 40 MEQ in 0.9 % SODIUM CHLORIDE 250 ML 67.5 MEQ IV (13:20)
[2024-03-11] MEDS: AMIODARONE HCL 200 MG TABLET PO (16:50)
[2024-03-11] MEDS: 0.9 % SODIUM CHLORIDE 250 ML 10 ML IV (17:39)
[2024-03-11] MEDS: DOXEPIN HCL 25 MG CAPSULE 50 MG PO (21:15)
[2024-03-11] MEDS: CARVEDILOL 6.25 MG TABLET PO (21:15)
[2024-03-11] MEDS: APIXABAN 5 MG TABLET PO (21:15)
[2024-03-12] VITALS (10 sets, daily range): BP systolic 127–155; BP diastolic 80–93; PULSE 67–73; TEMP 36.7–36.8; O2SAT 96
[2024-03-12] MEDS: PIPERACILLIN SODIUM/TAZOBACTAM 3.375 GM in 0.9 % SODIUM CHLORIDE 50 ML IV ×2 (00:17→08:04)
[2024-03-12 05:23] LABS: Basophils Percent Auto 0.4 % (0.2-2.0); Eosinophils Absolute Auto 0.2 10^3/uL (0.0-0.7); Eosinophils Percent Auto 2.4 % (0.9-7.0); Hematocrit 32.6 % (36.0-48.0); Immature Granulocytes Abs Auto 0.03 10^3/uL (0.00-0.03); Immature Granulocytes Pct Auto 0.4 % (0.0-0.5); Lymphocytes Percent Auto 27.6 % (20.5-60.0); Mean Corpuscular HGB Conc 30.7 g/dL (29.9-35.2); Mean Corpuscular Hemoglobin 26.7 pg (26.7-34.0); Mean Corpuscular Volume 87.2 fL (81.0-99.0); Mean Platelet Volume 10.3 fL (9.5-13.5); Monocytes Absolute Auto 0.6 10^3/uL (0.3-0.8); Monocytes Percent Auto 8.7 % (1.7-12.0); Neutrophils Absolute Auto 4.5 10^3/uL (1.4-6.5); Neutrophils Percent Auto 60.5 % (43.0-75.0); Platelet Count 387 10^3/uL (150-450); Red Blood Count 3.74 10^6/uL (4.20-5.40); Red Cell Distribution Width 18.8 % (11.0-15.0); White Blood Count 7.4 10^3/uL (4.0-11.0)
[2024-03-12] MEDS: HYOSCYAMINE SULFATE 0.125 MG TAB.SUBL 0.25 MG SL (05:35)
[2024-03-12] MEDS: LEVOTHYROXINE SODIUM 25 MCG TABLET 50 MCG PO (05:35)
[2024-03-12 05:51] LABS: Alanine Aminotransferase 15 U/L (14-59); Albumin Globulin Ratio 0.7; Albumin Level 2.6 g/dL (3.4-5.0); Alkaline Phosphatase 91 U/L (46-116); Anion Gap 5.9; Aspartate Amino Transferase 22 U/L (15-37); BUN Creatinine Ratio 11.4; Bilirubin Total 0.4 mg/dL (0.2-1.0); Calcium 8.7 mg/dL (8.5-10.1); Carbon Dioxide 32.4 mmol/L (21.0-32.0); Chloride 104 mmol/L (98-107); Estimated GFR (African America >60 (>=60); Estimated GFR (Non-African Ame >60 (>=60); Globulin 3.6 g/dL; Glucose 92 mg/dL (74-106); Potassium 3.3 mmol/L (3.5-5.1); Sodium 139 mmol/L (136-145); Total Protein 6.2 g/dL (6.4-8.2)
--- NOTE | 2024-03-12 07:51 | P.DS_ITS ---
DS: Providers Provider Date of admission: 03/09/24 08:15 Primary care physician: Lele Smith MD Consults: 03/08/24 Consult to Dietitian Routine Reason for consultation: poor appetite d/t possible obstruction Has provider been notified: Yes 03/11/24 14:36 Consult to Pharmacy Routine Consulting Provider: Reason for consultation: Restart meds - - amiodarone, coreg, doxepin, eliquis,levothyroxine Has provider been notified: No DS: Diagnosis Discharge Diagnosis (1) Abdominal pain: (2) Partial bowel obstruction: (3) Diverticulitis: (4) Hypertension: Qualifiers: Hypertension type: primary hypertension Qualified Code(s): I10 - Essential (primary) hypertension Plan Admit findings: Leukocytosis, anemia, severe hypokalemia secondary to recurrent emesis secondary to acute diverticulitis leading to bowel obstruction. This is failed outpatient treatment. She was started on Cipro and Flagyl 3 days prior to admission. With her significant leukocytosis she is admitted for workup and treatment of same Acute diverticulitis resulting in bowel obstruction-improving at the time of discharge, bowel obstruction resolved on x-ray Recurrent severe emesis-secondary to obstruction-see above Iron deficiency anemia-we will continue to monitor, down somewhat today,-stable to time of discharge Leukocytosis-secondary to above-stable at the time of discharge Hypokalemia-on IV bolus today. Improving at the time of discharge Coronary artery disease-stable at the time of discharge Hypertension-stable at the time of discharge Atrial fibrillation-rate can hold time of discharge Hypothyroidism-follow as an outpatient GERD-stable to time of discharge Moderate protein calorie malnutrition-stable to time of discharge Admission status: Patient initially started as observation but with leukocytosis worse today, rebound tenderness on exam she is likely here 3 to 4 days with IV antibiotics. Secondary to failed outpatient treatment. Medically necessary treatment will cover over 2 midnights. Inpatient status, hopeful for discharge tomorrow if can tolerate diet today and pain remains unchanged after eating DS: Summary Hospital Course Hospital Course: Patient with a history of recurrent diverticulitis, presented to the emergency room with increasing nausea vomiting and abdominal pain. CT scan showed recurrence of the diverticulitis. With leukocytosis, no perforation, but inflammation definitely present. Initial thought was that this was just her chronic, but she has never had a CT scan in between acute flareups, this was an acute flareup of her diverticulitis was treated ended up resulting in acute bowel obstruction is noted on x-ray. NG tube was placed, NG tube is in 36 hours, patient accidentally pulled out it remained out repeat x-ray then showed resolution of her bowel obstruction. She was given clear liquid diet yesterday. She had no increase in her pain throughout the day. As the diet was advanced. At this point with her white blood cell count back to normal, she is tolerating a diet without emesis should be discharged to home in improving condition. Medications see list. Follow-up with me in the office next week. Continue plan for surgical intervention end of March Time Spent with Patient Time attestation: Total time spent providing and/or coordinating discharge services: Exam Constitutional Vital Signs, click to edit/add: Last Vital Signs Temp 98.2 F 03/12/24 04:37 Pulse 71 03/12/24 07:50 Resp 16 03/12/24 04:37 BP 127/80 03/12/24 04:37 Pulse Ox 96 03/12/24 04:37 O2 Del Method Room Air 03/12/24 04:37 Documenting provider has reviewed patient's vital signs: yes Common normals: no apparent distress (Resting comfortably) Chest Common normals: inspection of chest normal Respiratory Common normals: normal respiratory effort and no retractions Cardio Common normals: regular rate and regular rhythm GI Common normals: Normal to inspection, nondistended, normoactive bowel sounds present and soft to palpation; tender (Minimal tenderness, much improved) Palpation: tender (Minimal tenderness much improved) Details: LLQ and periumbilical; no rebound tenderness present (Rebound tenderness appears resolved) Extremity Common normals: normal to inspection, full ROM and normal capillary refill Neuro Common normals: oriented x3, CN's II-XII intact bilaterally and moves all extremities DS: Data Data Completed and Pending Labs on day of discharge: Labs from last 24 hours 03/12/24 05:03 WBC 7.4 RBC 3.74 L Hgb 10.0 L Hct 32.6 L MCV 87.2 MCH 26.7 MCHC 30.7 RDW 18.8 H Plt Count 387 MPV 10.3 Neut % (Auto) 60.5 Lymph % (Auto) 27.6 [place] % (Auto) 8.7 Eos % (Auto) 2.4 Baso % (Auto) 0.4 Neut # (Auto) 4.5 Lymph # (Auto) 2.0 [place] # (Auto) 0.6 Eos # (Auto) 0.2 Baso # (Auto) 0.0 Abs Immat Gran (auto) 0.03 Imm/Tot Granulo (auto) 0.4 Sodium 139 Potassium 3.3 L Chloride 104 Carbon Dioxide 32.4 H Anion Gap 5.9 BUN 8.0 Creatinine 0.70 Est GFR ( Amer) >60 Est GFR (Non-Af Amer) >60 BUN/Creatinine Ratio 11.4 Glucose 92 Calcium 8.7 Total Bilirubin 0.4 AST 22 ALT 15 Alkaline Phosphatase 91 Total Protein 6.2 L Albumin 2.6 L Globulin 3.6 Albumin/Globulin Ratio 0.7 Discharge Plan Discharge Disposition: Home, Self-Care Condition: Good Discharge Medications: New amoxicillin-pot clavulanate 875-125 mg tablet 1 tab PO BID Qty: 60 1RF amoxicillin 500 mg tablet 1,000 mg PO BID Qty: 120 1RF Continued amiodarone 100 mg tablet 100 mg PO DAILY Eliquis 5 mg tablet 5 mg PO Q12H carvedilol 6.25 mg tablet 6.25 mg PO Q12H doxepin 25 mg capsule 50 mg PO .pm levothyroxine 50 mcg tablet 50 mcg PO DAILY omeprazole 40 mg capsule,delayed release(DR/EC) 40 mg PO DAILY lactulose 10 gram/15 mL solution 15 ml PO DAILY PRN (Reason: constipation) Discontinued diltiazem HCl [Tiadylt ER] 180 mg capsule,extended release 24 hr 180 mg PO DAILY irbesartan 300 mg tablet 300 mg PO DAILY Print Language: Bengali Forms: Portal Instructions Follow Up Appointments: Mar.17 @ 10:15am with Dr. Smith [phone]
[2024-03-12] MEDS: AMIODARONE HCL 200 MG TABLET PO (08:04)
[2024-03-12] MEDS: CARVEDILOL 6.25 MG TABLET PO (08:04)
[2024-03-12] MEDS: PANTOPRAZOLE SODIUM 40 MG VIAL IV (08:04)
[2024-03-12] MEDS: APIXABAN 5 MG TABLET PO (08:04)
--- NOTE | 2024-03-16 15:39 | CM.DCFOLLOWU ---
03/16- 1st attempt. No answer
--- NOTE | 2024-03-17 15:11 | CM.DCFOLLOWU ---
03/17- 1st attempt. No answer
== END 2024-03-12 11:42 | disposition home or self-care (01) | DRG 391 ==
LOC: ER 15:27 → MS 16:11
PROVIDERS: Internal Medicine; Admitting Provider Family Medicine; Emergency Provider Emergency Medicine; PCP Family Medicine; Visit Provider Family Medicine
DX: K57.32 Diverticulitis of large intestine without perforation or abscess without bleeding (principal); E43 Unspecified severe protein-calorie malnutrition; Z68.41 Body mass index [BMI] 40.0-44.9, adult; K56.600 Partial intestinal obstruction, unspecified as to cause; D72.829 Elevated white blood cell count, unspecified; E87.6 Hypokalemia; R11.10 Vomiting, unspecified; I25.10 Atherosclerotic heart disease of native coronary artery without angina pectoris; D50.9 Iron deficiency anemia, unspecified; I10 Essential (primary) hypertension; I48.91 Unspecified atrial fibrillation; E03.9 Hypothyroidism, unspecified; K21.9 Gastro-esophageal reflux disease without esophagitis; Z87.891 Personal history of nicotine dependence; Z90.49 Acquired absence of other specified parts of digestive tract; Z79.890 Hormone replacement therapy; Z79.899 Other long term (current) drug therapy; Z79.01 Long term (current) use of anticoagulants
CPT/HCPCS: 36415; 74022; 74177; 80048; 80053; 81001; 85025; 94761; 96374; 99285; G0328; J2405; J2543; J3480; Q9967

== ENCOUNTER 2024-03-16 13:24 | Outpatient (OUT) | payer MEDICARE, OTHER, SELFPAY ==
--- OUTSIDE RECORDS SUMMARY | 2024-03-16 13:37 | XMS_ITS | CCD ---
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 Family History Problem Relation Age of Onset Heart attack Father Atrial fibrillation Father Atrial fibrillation Sister Family Status - Relation Status Age at Father Sister Normal [facility] Office Visiton 02-11-2024 Follow-up visit [id number] Angie Watt 1950 F Date Provider Department Center 02/11/2024 Mallika-SAIDA LAI [facility] SURG [place] Family History Problem Relation Age of Onset Heart attack Father Atrial fibrillation Father Atrial fibrillation Sister Family Status - Relation Status Age at Father Sister Level of Service:76709 [place] OFFICE/OUTPATIENT ESTABLISHED LOW MDM 20 MIN Reason for Visit and Comments: Post-op [483] - Angie is here today for post op visit: Stricture of colon, s/p 01/31/24 colonoscopy Normal [facility] 30on 01-31-2024 30 The patient is Moderately Stable - Low risk of patient condition declining or worsening The patient's goals for the shift include colonoscopy The clinical goals for the shift include VSS, safety Normal [facility] HISTOLOGY - TISSUE EXAMon LAB AP CASE REPORT Normal [facility] Comment on above: Order Comment: Pre-o p diagnosis: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] Result Comment: Surg ical Pathology Case: [id number] Authorizing Provider: Saiad Lai MD Collected: 01/31/20245 Ordering Location: [facility] Main Operating Room Received: 02/03/2024 0616 Pathologist: Siobhan Kraft MD Specimens: A) - Large Intestine, Left/Descending Colon, 55cm colon tissue B) - Large Intestine, Sigmoid Colon, sigmoid biopsy 30cm Performed By: #### L [id number] ####[facility] (BEAKER)[address] [facility] [place] [address] LAB AP CLINICAL INFORMATION [facility] Comment on above: Order Comment: Pre-o p diagnosis: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 L arge Intestine, Left/Descending Colon. Received in formalin labeled Angie Nay, 55 cm colon tissue are four rosas soft tissue bits and strips, 0.1 to 0.6 cm. The specimen is entirely submitted in a single cassette. Blanca Chen, Pathologists' Club Room Attendant B. Large Intestine, Sigmoid Colon. Received in formalin labeled Angie Nay, Sigmoid biopsy 30 cm are nine rosas soft tissue bits, 0.2 to 0.4 cm. The specimen is entirely submitted in a single cassette. Blanca Chen, Pathologists' Club Room Attendant Performed By: #### L [id number] ####[facility] (BEAKER)[address] [place] [address] LAB AP MICROSCOPIC DESCRIPTION Microscopic examination performed. 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 C olon, 55 cm, biopsy: - Tubular adenoma. B. Sigmoid colon, 30 cm, biopsy: - Colonic mucosa with no significant histologic abnormality. - No evidence of dysplasia. Performed By: #### L [id number] ####[facility] (BERICKI)[address] [facility] [place] [address] HPon 01-31-2024 HP H&P reviewed. The patient was examined and there are no changes to the H&P. CT scan showed thickening of the descending colon and sigmoid colon. Proceed for colonoscopy today. 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 Priority Lab ID A Large Intestine, Left/Descending Colon Tissue HISTOLOGY - TISSUE EXAM Saida Lai MD 01/31/241714 Description: 55cm colon tissue B Large Intestine, Sigmoid Colon Tissue HISTOLOGY - TISSUE EXAM Saida Lai MD 01/31/241715 Description: sigmoid biopsy 30cm Staff: Academic Records Specialist: Kaur Jacinto RN Scrub Person: Lacy Binting, PRESS CLIPPER Indications: Angie Watt is an 73 y.o. female who is having surgery for Stricture of colon ([facility]) [K56.699]. Colonoscopy [...] Recommendations: 1. Await pathology Follow up with ut [phone] pager [phone] clinic Normal [facility] POCT GLUCOSE METER UNSOLICIT ED RESULTSon 01-31-2024 Glucose [Mass/Vol] 91 mg/dL Normal 70-105 [facility] Comment on above: Order Comment: Waive d Testing in the ED is performed under the ED CLIA certificate #[id number]. Result Comment: [email or web address] Performed By: #### L [id number] #### [facility] (BEATRIZAKER) [address] [place] [address] 30on 01-30-2024 30 The patient is Moderately Stable - Low risk of patient condition declining or worsening The patient's goals for the shift include bowel prep The clinical goals for the shift include bowel prep, VSS Normal [facility] 30 The patient is Moderately Stable [...] and behaviors that affect risk of falls Dixie fall precautions as indicated by assessment Problem: [...] symptoms for stability, deterioration, or improvement Normal [facility] CEAon 01-30-2024 CARCINOEMBRYONIC AG (NG/ML) IN SER/PLAS 2.0 ng/mL Normal 0-3 [facility] Comment on above: Performed By: #### L [id number] #### [facility] (BERICKI) [address] [place] [address] 30on 01-29-2024 30 The patient is Moderately [...] and behaviors that affect risk of falls Dixie fall precautions as indicated by assessment Problem: [...] symptoms for stability, deterioration, or improvement Normal [facility] 30 The patient is Moderately Stable [...] and behaviors that affect risk of falls Dixie fall precautions as indicated by assessment Educate [...] and prevent overall improvement and discharge Normal [facility] 30 The patient is Moderately Stable [...] and behaviors that affect risk of falls Dixie fall precautions as indicated by assessment Educate [...] and prevent overall improvement and discharge Normal [facility] BLOOD CULTUREon 01-28-2024 Bacteria identified Cx Nom (Bld) No growth at 5 days Normal [facility] Comment on above: Performed By: #### L [id number] ####[facility] (BEAKER)[address] [place] [address] Order Comment: From a different site than #1., Blood CBC WITH AUTO DIFFERENTIALon 01-28-2024 Basophils (Bld) [#/Vol] 0.02 10*3/uL Normal 0.00-0.20 [facility] Comment on above: Performed By: #### L [id number] #### [facility] (BEAKER) [address] [place] [address] Basophils/100 WBC (Bld) 0.3 % Normal 0.0-1.0 [facility] Comment on above: Performed By: #### L [id number] #### [facility] (BEAKER) [address] [place] [address] Eosinophils (Bld) [#/Vol] 0.13 10*3/uL Normal 0.00-0.50 [facility] Comment on above: Performed By: #### L [id number] #### [facility] (BEAKER) [address] [place] [address] Eosinophils/100 WBC (Bld) 2.0 % Normal 0.0-6.0 [facility] Comment on above: Performed By: #### L [id number] #### [facility] (BEAKER) [address] [place] [address] Erythrocyte distribution width (RBC) [Ratio] 17.5 % High 11.5-15.0 [facility] Comment on above: Performed By: #### L [id number] #### [facility] [address] [place] [address] ERYTHROCYTE MEAN CORPUSCULAR HEMOGLOBIN CONCENTRATION (G/DL) BY AUTOMATED 30.5 g/dL Low 32.0-35.0 [facility] Comment on above: Performed By: #### L [id number] #### [facility] ([facility]) [address] [place] [address] Hematocrit (Bld) [Volume fraction] 36.7 % Normal 36.0-48.0 [facility] Comment on above: Performed By: #### L [id number] #### [facility] ([facility]) [address] [place] [address] Hemoglobin (Bld) [Mass/Vol] 11.2 g/dL Low 12.0-15.0 [facility] Comment on above: Performed By: #### L [id number] #### [facility] ([facility]) [address] [place] [address] Immature granulocytes (Bld) [#/Vol] 0.02 10*3/uL Normal 0.00-0.20 [facility] Comment on above: Performed By: #### L [id number] #### [facility] ([facility]) [address] [place] [address] Immature granulocytes/100 WBC (Bld) 0.3 % Normal 0.0-1.0 [facility] Comment on above: Performed By: #### L [id number] #### [facility] (BEAKER) [address] [place] [address] Lymphocytes (Bld) [#/Vol] 1.37 10*3/uL Normal 1.20-4.00 [facility] Comment on above: Performed By: #### L [id number] #### [facility] (BEAKER) [address] [place] [address] Lymphocytes/100 WBC (Bld) 21.0 % Normal 20.0-45.0 [facility] Comment on above: Performed By: #### L [id number] #### [facility] (BEAKER) [address] [place] [address] MCH (RBC) [Entitic mass] 26.7 pg Low 27.0-33.0 [facility] Comment on above: Performed By: #### L [id number] #### [facility] [address] [place] [address] MCV (RBC) [Entitic vol] 87.4 fL Normal 82.0-98.0 [facility] Comment on above: Performed By: #### L [id number] #### [facility] ([facility]) [address] [place] [address] Monocytes (Bld) [#/Vol] 0.49 10*3/uL Normal 0.10-1.00 [facility] Comment on above: Performed By: #### L [id number] #### [facility] ([facility]) [address] [place] [address] Monocytes/100 WBC (Bld) 7.5 % Normal 5.0-12.0 [facility] Comment on above: Performed By: #### L [id number] #### [facility] ([facility]) [address] [place] [address] Neutrophils (Bld) [#/Vol] 4.48 10*3/uL Normal 1.60-7.60 [facility] Comment on above: Performed By: #### L [id number] #### [facility] ([facility]) [address] [place] [address] Neutrophils/100 WBC (Bld) 68.9 % Normal 40.0-72.0 [facility] Comment on above: Performed By: #### L [id number] #### [facility] [address] [place] [address] NRBC (PER 100 WBCS) BY AUTOMATED COUNT 0.0 % Normal 0 [facility] Comment on above: Performed By: #### L [id number] #### [facility] (BEAKER) [address] [place] [address] PLATELETS (10*3/UL) IN BLOOD AUTOMATED COUNT 437 10*3/uL High 150-400 [facility] Comment on above: Performed By: #### L [id number] #### [facility] ([facility]) [address] [place] [address] RBC (Bld) [#/Vol] 4.20 10*6/uL Normal 3.80-5.00 [facility] Comment on above: Performed By: #### L [id number] #### [facility] ([facility]) [address] [place] [address] WBC (Bld) [#/Vol] 6.51 10*3/uL Normal 4.00-10.60 [facility] Comment on above: Performed By: #### L [id number] #### [facility] ([facility]) [address] [place] [address] COMPREHENSIVE METABOLIC PANE Nacho 01-28-2024 Albumin [Mass/Vol] 3.4 g/dL Low 3.5-5.7 [facility] Comment on above: Performed By: #### L [id number] #### [facility] ([facility]) [address] [place] [address] ALP [Catalytic activity/Vol] 109 U/L High 34-104 [facility] Comment on above: Performed By: #### L [id number] #### [facility] ([facility]) [address] [place] [address] ALT [Catalytic activity/Vol] 11 U/L Normal 7-52 [facility] Comment on above: Performed By: #### L [id number] #### [facility] ([facility]) [address] [place] [address] Anion gap [Moles/Vol] 11 mmol/L Normal 7-20 [facility] Comment on above: Performed By: #### L [id number] #### [facility] ([facility]) [address] [place] [address] AST [Catalytic activity/Vol] 12 U/L Low 13-39 [facility] Comment on above: Performed By: #### L [id number] #### [facility] [address] [place] [address] Bilirubin [Mass/Vol] 0.5 mg/dL Normal 0.3-1.0 [facility] Comment on above: Performed By: #### L [id number] #### [facility] [address] [place] [address] Calcium [Mass/Vol] 8.5 mg/dL Low 8.6-10.3 [facility] Comment on above: Performed By: #### L [id number] #### [facility] [address] [place] [address] Chloride [Moles/Vol] 105 mmol/L Normal 98-107 [facility] Comment on above: Performed By: #### L [id number] #### [facility] [address] [place] [address] CO2 [Moles/Vol] 27 mmol/L Normal 21-31 [facility] Comment on above: Performed By: #### L [id number] #### [facility] [address] [place] [address] Creatinine [Mass/Vol] 0.59 mg/dL Low 0.60-1.20 [facility] Comment on above: Performed By: #### L [id number] #### [facility] [address] [place] [address] GLOMERULAR FILTRATION RATE ML/MIN/1.73 SQ M.PREDICTED 96.3 mL/min/1.73m*2 Normal >60.0 [facility] Comment on above: Result Comment: [facility]???s estimated glomerular filtration rate (eGFR) will [...] group of individuals. Performed By: #### L [id number] #### [facility] ([facility]) [address] [place] [address] Glucose [Mass/Vol] 84 mg/dL Normal 70-100 [facility] Comment on above: Performed By: #### L [id number] #### [facility] ([facility]) [address] [place] [address] Potassium [Moles/Vol] 3.5 mmol/L Normal 3.5-5.1 [facility] Comment on above: Performed By: #### L [id number] #### [facility] ([facility]) [address] [place] [address] Protein [Mass/Vol] 6.3 g/dL Normal 6.0-8.3 [facility] Comment on above: Performed By: #### L [id number] #### [facility] ([facility]) [address] [place] [address] Sodium [Moles/Vol] 139 mmol/L Normal 136-145 [facility] Comment on above: Performed By: #### L [id number] #### [facility] ([facility]) [address] [place] [address] Urea nitrogen [Mass/Vol] 6 mg/dL Low 7-25 [facility] Comment on above: Performed By: #### L [id number] #### [facility] ([facility]) [address] [place] [address] UREA NITROGEN/CREATININE (MASS RATIO) IN SER/PLAS 10.2 Normal [facility] Comment on above: Performed By: #### L [id number] #### [facility] ([facility]) [address] [place] [address] CONSULTon 01-28-2024 CONSULT Reason For Consult Partial [...] smoking history. She has been sent from [facility] where she was admitted on January [...] discharge. N (more content not included)... Normal [facility] CT ABDOMEN PELVIS W IV CONTR [...] Francisco Cosby. Not Vldtd Invalid Interpretation Code [facility] HPon 01-28-2024 Reason For Consult Partial [...] smoking history. She has been sent from [facility] where she was admitted on January [...] discharge. N (more content not included)... Normal [facility] LACTIC ACID, PLASMAon 2023 LACTATE (MMOL/L) IN SER/PLAS 0.8 mmol/L Normal 0.5-2.2 [facility] Comment on above: Performed By: #### L [id number] #### [facility] (BEAKER) [address] [place] [address] LIPASEon 01-28-2024 LIPASE (U/L) IN SER/PLAS 7 U/L Low 11-82 [facility] Comment on above: Performed By: #### L [id number] #### [facility] ([facility]) [address] [place] [address] PROTIME-INRon 01-28-2024 INR IN PPP BY COAGULATION ASSAY 1.21 High 0.90-1.10 [facility] Comment on above: Result Comment: ACCC [...] CHEST 1995;108:231S-246S. Performed By: #### L [id number] ####[facility] ([facility])[address] [place] [address] PROTHROMBIN TIME (PT) IN PPP BY COAGULATION ASSAY 15.3 Seconds High 12.3-14.8 [facility] Comment on above: Performed By: #### L [id number] ####[facility] ([facility])[address] [place] [address] TROPONIN Ion 01-28-2024 Troponin I.cardiac [Mass/Vol] 0.01 ng/mL Normal 0.00-0.04 [facility] Comment on above: Performed By: #### L [id number] ####[facility] ([facility])[address] [place] [address] Ambulatory Visit Summaryon 0 01-21-2024 Ambulatory Visit [...] for choosing us for your care. Yair [facility] Ambulatory Visit Summary Ambulatory Visit Summary ANGIE [...] for choosing us for your care. Normal [facility] Office Visiton 12-24-2023 Follow-up visit [id number] Angie Watt Gómez 1950 F Date Provider Department Center 12/24/2023 RIZWANA MURILLO [facility] Family History Problem Relation Age of Onset Heart attack Father Atrial fibrillation Father Atrial fibrillation Sister Family Status - Relation Status Age at Father Sister Level of Service:[address]82 [place] OFFICE/OUTPATIENT ESTABLISHED MOD MDM 30 MIN Normal [facility] Physician Referralon 024 Physician Referral [phone] 03 [id number]#1.00 TIFF Normal [facility] BASIC METABOLIC PANELon Anion gap [Moles/Vol] 12 mmol/L Normal 7- [facility] Comment on above: Performed By: #### L [id number] #### [facility] ([facility]) [address] [place] [address] Calcium [Mass/Vol] 8.5 mg/dL Low 8.6-10.3 [facility] Comment on above: Performed By: #### L [id number] #### [facility] ([facility]) [address] [place] [address] Chloride [Moles/Vol] 101 mmol/L Normal 98-107 [facility] Comment on above: Performed By: #### L [id number] #### [facility] ([facility]) [address] [place] [address] CO2 [Moles/Vol] 26 mmol/L Normal 21-31 [facility] Comment on above: Performed By: #### L [id number] #### [facility] ([facility]) [address] [place] [address] Creatinine [Mass/Vol] 0.78 mg/dL Normal 0.60-1.20 [facility] Comment on above: Performed By: #### L [id number] #### [facility] ([facility]) [address] [place] [address] GLOMERULAR FILTRATION RATE ML/MIN/1.73 SQ M.PREDICTED 81.2 mL/min/1.73m*2 Normal >60.0 [facility] Comment on above: Result Comment: [facility]???s estimated glomerular filtration rate (eGFR) will [...] group of individuals. Performed By: #### L [id number] #### [facility] ([facility]) [address] [place] [address] Glucose [Mass/Vol] 91 mg/dL Normal 70-100 [facility] Comment on above: Performed By: #### L [id number] #### [facility] ([facility]) [address] [place] [address] Potassium [Moles/Vol] 3.9 mmol/L Normal 3.5-5.1 [facility] Comment on above: Performed By: #### L [id number] #### [facility] ([facility]) [address] [place] [address] Sodium [Moles/Vol] 135 mmol/L Low 136-145 [facility] Comment on above: Performed By: #### L [id number] #### [facility] ([facility]) [address] [place] [address] Urea nitrogen [Mass/Vol] 8 mg/dL Normal 7-25 [facility] Comment on above: Performed By: #### L [id number] #### [facility] ([facility]) [address] [place] [address] UREA NITROGEN/CREATININE (MASS RATIO) IN SER/PLAS 10.3 Normal [facility] Comment on above: Performed By: #### L [id number] #### [facility] ([facility]) [address] [place] [address] CBCon 11-22-2023 Erythrocyte distribution width (RBC) [Ratio] 15.9 % High 11.5-15.0 [facility] Comment on above: Performed By: #### L [id number] #### [facility] ([facility]) [address] [place] [address] ERYTHROCYTE MEAN CORPUSCULAR HEMOGLOBIN CONCENTRATION (G/DL) BY AUTOMATED 31.3 g/dL Low 32.0-35.0 [facility] Comment on above: Performed By: #### L [id number] #### [facility] ([facility]) [address] [place] [address] Hematocrit (Bld) [Volume fraction] 35.2 % Low 36.0-48.0 [facility] [facility] Comment on above: Performed By: #### L [id number] #### [facility] ([facility]) [address] [place] [address] Hemoglobin (Bld) [Mass/Vol] 11.0 g/dL Low 12.0-15.0 [facility] Comment on above: Performed By: #### L [id number] #### [facility] ([facility]) [address] [place] [address] MCH (RBC) [Entitic mass] 27.5 pg Normal 27.0-33.0 [facility] Comment on above: Performed By: #### L [id number] #### [facility] ([facility]) [address] [place] [address] MCV (RBC) [Entitic vol] 88.0 fL Normal 82.0-98.0 [facility] Comment on above: Performed By: #### L [id number] #### [facility] ([facility]) [address] [place] [address] PLATELETS (10*3/UL) IN BLOOD AUTOMATED COUNT 341 10*3/uL Normal 150-400 [facility] Comment on above: Performed By: #### L [id number] #### [facility] ([facility]) [address] [place] [address] RBC (Bld) [#/Vol] 4.00 10*6/uL Normal 3.80-5.00 [facility] Comment on above: Performed By: #### L [id number] #### [facility] ([facility]) [address] [place] [address] WBC (Bld) [#/Vol] 7.75 10*3/uL Normal 4.00-10.60 [facility] Comment on above: Performed By: #### L [id number] #### [facility] ([facility]) [address] [place] [address] DSon 11-22-2023 DS Admission Admitted 11/20/2023 for [...] These medications were sent to [facility] - [place], [place] - [address] [facility] [place] [address] [address] [facility] [place] [address], [facility] [address] acetaminophen 500 mg tablet Activity Normal activity [...] history of a cholecystectomy who presents to [facility] as a direct transfer from [facility] with diverticulitis. Pt had been having [...] hgb 11.5, otherwise wnl. Upon arrival to [facility], pt was started on [...] appointments. Test Results Pending At Discharge Normal [facility] 30on 11-21-2023 30 Daily Case Managemen [...] 11/20/23 1632 Dietary nutrition supplements Lunch; Liquacel; [place]; 2 packets; Oral Until discontinued Question Answer Comment Deliver with Lunch Select supplement: Liquacel flavor [place] Strength: 2 packets Route Oral 11/20/23 1631 11/20/23 1631 Dietary nutrition supplements TID; Resource Breeze; 8 oz; Oral Until discontinued Question Answer Comment Deliver with TID Select supplement: Resource Breeze Strength: 8 oz Route Oral 11/20/23 1631 Physician Expected Discharge Date: 11/23/2023 Discharge Delays: PT Six Click Score: 17 OT Six Click Score: PT Recommendations: OT Recommendations: New Consults: Normal [facility] BASIC METABOLIC PANELon 06-0 Anion gap [Moles/Vol] 11 mmol/L Normal 7-20 [facility] Comment on above: Performed By: #### L [id number] #### [facility] [address] [place] [address] Calcium [Mass/Vol] 8.6 mg/dL Normal 8.6-10.3 [facility] Comment on above: Performed By: #### L [id number] #### [facility] [address] [place] [address] Chloride [Moles/Vol] 102 mmol/L Normal 98-107 [facility] Comment on above: Performed By: #### L [id number] #### [facility] ([facility]) [address] [place] [address] CO2 [Moles/Vol] 26 mmol/L Normal 21-31 [facility] Comment on above: Performed By: #### L [id number] #### [facility] [address] [place] [address] Creatinine [Mass/Vol] 0.75 mg/dL Normal 0.60-1.20 [facility] Comment on above: Performed By: #### L [id number] #### [facility] [address] [place] [address] GLOMERULAR FILTRATION RATE ML/MIN/1.73 SQ M.PREDICTED 85.1 mL/min/1.73m*2 Normal >60.0 [facility] Comment on above: Result Comment: [facility]???s estimated glomerular filtration rate (eGFR) will [...] individuals. Performed By: #### L [id number] #### [facility] ([facility]) [address] [place] [address] Glucose [Mass/Vol] 93 mg/dL Normal 70-100 [facility] Comment on above: Performed By: #### L [id number] #### [facility] ([facility]) [address] [place] [address] Potassium [Moles/Vol] 3.9 mmol/L Normal 3.5-5.1 [facility] Comment on above: Performed By: #### L [id number] #### [facility] ([facility]) [address] [place] [address] Sodium [Moles/Vol] 135 mmol/L Low 136-145 [facility] Comment on above: Performed By: #### L [id number] #### [facility] ([facility]) [address] [place] [address] Urea nitrogen [Mass/Vol] 8 mg/dL Normal 7-25 [facility] Comment on above: Performed By: #### L [id number] #### [facility] ([facility]) [address] [place] [address] UREA NITROGEN/CREATININE (MASS RATIO) IN SER/PLAS 10.7 Normal [facility] Comment on above: Performed By: #### L [id number] #### [facility] ([facility]) [address] [place] [address] CBCon 11-21-2023 Erythrocyte distribution width (RBC) [Ratio] 15.6 % High 11.5-15.0 [facility] Comment on above: Performed By: #### L [id number] #### [facility] ([facility]) [address] [place] [address] ERYTHROCYTE MEAN CORPUSCULAR HEMOGLOBIN CONCENTRATION (G/DL) BY AUTOMATED 31.7 g/dL Low 32.0-35.0 [facility] Comment on above: Performed By: #### L [id number] #### [facility] [address] [place] [address] Hematocrit (Bld) [Volume fraction] 34.7 % Low 36.0-48.0 [facility] Comment on above: Performed By: #### L [id number] #### [facility] ([facility]) [address] [place] [address] Hemoglobin (Bld) [Mass/Vol] 11.0 g/dL Low 12.0-15.0 [facility] Comment on above: Performed By: #### L [id number] #### [facility] ([facility]) [address] [place] [address] MCH (RBC) [Entitic mass] 27.4 pg Normal 27.0-33.0 [facility] Comment on above: Performed By: #### L [id number] #### [facility] ([facility]) [address] [place] [address] MCV (RBC) [Entitic vol] 86.5 fL Normal 82.0-98.0 [facility] Comment on above: Performed By: #### L [id number] #### [facility] ([facility]) [address] [place] [address] PLATELETS (10*3/UL) IN BLOOD AUTOMATED COUNT 349 10*3/uL Normal 150-400 [facility] Comment on above: Performed By: #### L [id number] #### [facility] ([facility]) [address] [place] [address] RBC (Bld) [#/Vol] 4.01 10*6/uL Normal 3.80-5.00 [facility] Comment on above: Performed By: #### L [id number] #### [facility] ([facility]) [address] [place] [address] WBC (Bld) [#/Vol] 7.22 10*3/uL Normal 4.00-10.60 [facility] Comment on above: Performed By: #### L [id number] #### [facility] ([facility]) [address] [place] [address] 30on 11-20-2023 30 Problem: Pain Goal: LTG-Verbalize [...] to address these barriers include . Normal [facility] 30 The patient is Moderately Stable [...] fall risk status, and pain status Normal [facility] CBCon 11-20-2023 Erythrocyte distribution width (RBC) [Ratio] 15.8 % High 11.5-15.0 [facility] Comment on above: Performed By: #### L [id number] #### [facility] ([facility]) [address] [facility] [place] [address] ERYTHROCYTE MEAN CORPUSCULAR HEMOGLOBIN CONCENTRATION (G/DL) BY AUTOMATED 31.9 g/dL Low 32.0-35.0 [facility] Comment on above: Performed By: #### L [id number] #### [facility] [address] [place] [address] Hematocrit (Bld) [Volume fraction] 36.1 % Normal 36.0-48.0 [facility] Comment on above: Performed By: #### L [id number] #### [facility] [address] [place] [address] Hemoglobin (Bld) [Mass/Vol] 11.5 g/dL Low 12.0-15.0 [facility] Comment on above: Performed By: #### L [id number] #### [facility] [address] [place] [address] MCH (RBC) [Entitic mass] 27.4 pg Normal 27.0-33.0 [facility] Comment on above: Performed By: #### L [id number] #### [facility] [address] [place] [address] MCV (RBC) [Entitic vol] 86.2 fL Normal 82.0-98.0 [facility] Comment on above: Performed By: #### L [id number] #### [facility] ([facility]) [address] [place] [address] PLATELETS (10*3/UL) IN BLOOD AUTOMATED COUNT 388 10*3/uL Normal 150-400 [facility] Comment on above: Performed By: #### L [id number] #### [facility] [address] [place] [address] RBC (Bld) [#/Vol] 4.19 10*6/uL Normal 3.80-5.00 [facility] Comment on above: Performed By: #### L [id number] #### [facility] ([facility]) [address] [place] [address] WBC (Bld) [#/Vol] 9.02 10*3/uL Normal 4.00-10.60 [facility] Comment on above: Performed By: #### L [id number] #### [facility] ([facility]) [address] [place] [address] COMPREHENSIVE METABOLIC PANE Nacho 11-20-2023 Albumin [Mass/Vol] 3.8 g/dL Normal 3.5-5.7 [facility] Comment on above: Performed By: #### L [id number] #### [facility] ([facility]) [address] [place] [address] ALP [Catalytic activity/Vol] 118 U/L High 34-104 [facility] Comment on above: Performed By: #### L [id number] #### [facility] ([facility]) [address] [place] [address] ALT [Catalytic activity/Vol] 19 U/L Normal 7-52 [facility] Comment on above: Performed By: #### L [id number] #### [facility] ([facility]) [address] [place] [address] Anion gap [Moles/Vol] 9 mmol/L Normal 7-20 [facility] Comment on above: Performed By: #### L [id number] #### [facility] ([facility]) [address] [place] [address] AST [Catalytic activity/Vol] 28 U/L Normal 13-39 [facility] Comment on above: Performed By: #### L [id number] #### [facility] ([facility]) [address] [place] [address] Bilirubin [Mass/Vol] 0.6 mg/dL Normal 0.3-1.0 [facility] Comment on above: Performed By: #### L [id number] #### [facility] ([facility]) [address] [place] [address] Calcium [Mass/Vol] 8.9 mg/dL Normal 8.6-10.3 [facility] Comment on above: Performed By: #### L [id number] #### [facility] [address] [place] [address] Chloride [Moles/Vol] 101 mmol/L Normal 98-107 [facility] Comment on above: Performed By: #### L [id number] #### [facility] [address] [place] [address] CO2 [Moles/Vol] 29 mmol/L Normal 21-31 [facility] Comment on above: Performed By: #### L [id number] #### [facility] ([facility]) [address] [place] [address] Creatinine [Mass/Vol] 0.75 mg/dL Normal 0.60-1.20 [facility] Comment on above: Performed By: #### L [id number] #### [facility] ([facility]) [address] [place] [address] GLOMERULAR FILTRATION RATE ML/MIN/1.73 SQ M.PREDICTED 85.1 mL/min/1.73m*2 Normal >60.0 [facility] Comment on above: Result Comment: [facility]???s estimated glomerular filtration rate (eGFR) will [...] group of individuals. Performed By: #### L [id number] #### [facility] [address] [place] [address] Glucose [Mass/Vol] 116 mg/dL High 70-100 [facility] Comment on above: Performed By: #### L [id number] #### [facility] [address] [place] [address] Potassium [Moles/Vol] 4.2 mmol/L Normal 3.5-5.1 [facility] Comment on above: Performed By: #### L [id number] #### [facility]) [address] [place] [address] Protein [Mass/Vol] 7.0 g/dL Normal 6.0-8.3 [facility] Comment on above: Performed By: #### L [id number] #### [facility] ([facility]) [address] [place] [address] Sodium [Moles/Vol] 135 mmol/L Low 136-145 [facility] Comment on above: Performed By: #### L [id number] #### [facility] ([facility]) [address] [place] [address] Urea nitrogen [Mass/Vol] 12 mg/dL Normal 7-25 [facility] Comment on above: Performed By: #### L [id number] #### [facility]) [address] [place] [address] UREA NITROGEN/CREATININE (MASS RATIO) IN SER/PLAS 16.0 Normal [facility] Comment on above: Performed By: #### L [id number] #### [facility] ([facility]) [address] [place] [address] CONSULTon 11-20-2023 CONSULT Clinical Nutrition Assessment: Name: Angie Watt Room: [address] [place] [address] Date: 1950 Date of Visit: 11/20/23 Admission [...] Last BM 11/18; c/o N/V/D 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 [...] (11/20/2023). 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 For weekends & holidays, the dietitian can be reached via pager [phone] from 9A-3P. Unable to respond to [employer] chat messages on Saturday & . Normal [facility] HPon 11-20-2023 HP -- Attestation signed by Saida Lia MD at 11/21/2023 8:37 AM Attending Physician Statement I have discussed the case, including pertinent history and exam findings with Dr. Tanner, vice president media relations and have personally seen the patient. I agree with the assessment, plan and orders as documented. [phone] pager [phone] phone [facility] HISTORY & PHYSICAL Reason for Admission: diverticulitis History of Present Illness: Angie Watt is a 73 y.o. female with PMH of atrial fibrillation s/p ablation on amiodarone and eliquis, HTN, hypothyroidism, and sleep apnea and past surgical history of a cholecystectomy who presents to [facility] as a direct transfer from [facility] with diverticulitis. Pt had been having [...] Atrial fib (more content not included)... Normal [facility] LACTIC ACID, PLASMAon 2023 LACTATE (MMOL/L) IN SER/PLAS 1.2 mmol/L Normal 0.5-2.2 [facility] Comment on above: Performed By: #### L [id number] #### [facility] ([facility]) [address] [place] [address] NURSNOTEon 11-20-2023 NURSNOTE Bedside reporting done, per China RN and Maia RN No complaints at this time [facility] NURSNOTE Pt sits up at side o f bed, no c/o of pain, or SOB at this time Telemetry cont. On pt IV intact, no redness noted Pulse ox--98% on room air Pt. Up walking around in room for 10 min at 1830 pm [facility] NURSNOTE Pt up walking around in room, tolerates well , with walker. [facility] ULISESNOTTerry Lai notified th at we need admission orders. Notified via secure SP3H chat. [facility] NURSNOTE Pt arrived as a dire ct admission from [facility], no c/o of pain or SOB at this time Assessment completed Telemetry started on pt. Bed alarm on [facility] PHOSPHORUSon 11-20-2023 Magnesium [Mass/Vol] 2.5 mg/dL Normal 1.9-2.7 [facility] Comment on above: Performed By: #### L [id number] #### [facility]) [address] [place] [address] Performed By: #### L [id number] #### [facility]) [address] [place] [address] PROTIME-INRon 11-20-2023 INR IN PPP BY COAGULATION ASSAY 1.27 High 0.90-1.10 [facility] Comment on above: Result Comment: ACCC [...] 1995;[id number]. Performed By: #### L [id number] #### [facility]) [address] [place] [address] PROTHROMBIN TIME (PT) IN PPP BY COAGULATION ASSAY 15.8 Seconds High 12.3-14.8 [facility] Comment on above: Performed By: #### L [id number] #### [facility]) [address] [place] [address] 36on 08-01-2023 36 Regarding echo performed on 06/27/2023: Echo is stable per Lissa Spencer CNP. I called patient and made her aware. She asked about her lab work. I told her we didn't have a copy of it in her chart. Labs were then obtained from [facility] portal and uploaded into her manager media relations for Lissa's review. I told her I'd call her back if he didn't like the results. She thanked me and verbalized understanding. [facility] Orders Onlyon 06-25-2023 Orders Only [id number] Angie Watt 1950 F Date Provider Department Center 06/25/2023 Radha8DELFINA NELSON Family History Problem Relation Age of Onset Heart attack Father Atrial fibrillation Father Atrial fibrillation Sister Family Status - Relation Status Age at Father Sister [facility] Office Visiton 06-18-2023 Follow-up visit [id number] Angie Watt 1950 F Date Provider Department Center 06/18/2023 1596-LISSA SPENCER Family History Problem Relation Age of Onset Heart attack Father Atrial fibrillation Father Atrial fibrillation Sister Family Status - Relation Status Age at Father Sister Level of Service:[address] [place] OFFICE/OUTPATIENT ESTABLISHED MOD MDM 30 MIN Normal [facility] Orders Onlyon 02-20-2023 Orders Only [id number] Angie Watt 1950 F Date Provider Department Center 02/20/2023 VALENTE LYNN [facility] Family History Problem Relation Age of Onset Heart attack Father Atrial fibrillation Father Atrial fibrillation Sister Family Status - Relation Status Age at Father Sister Normal [facility] Covid-19 PCR (CVDTB)on 02-16 SARS-CoV-2 (COVID-19) RNA SP+probe Ql (Unsp spec) Not detected Normal NOT DETECTED [facility] Comment on above: Result Comment: When [...] for this test is supported by the Net Developer Programmer of Health and Human Service's declaration that [...] used). Performed By: #### C VDTB #### [facility] [address] [address] [address] Maik Singleton BASIC METABOLIC PANELon 07-19 Calcium [Mass/Vol] 8.1 mg/dL Low 8.6-10.3 [facility] Comment on above: Order Comment: No: D o not add to previous draw Performed By: #### 1 0070, [id number] #### [facility] [address] [place] [address], [facility] Chloride [Moles/Vol] 99 mmol/L Normal 98-107 [facility] Comment on above: Order Comment: No: D o not add to previous draw Performed By: #### 1 69, [id number] #### [facility] [address] [place] [address], [place] CO2 [Moles/Vol] 27 mmol/L Normal 21-31 [facility] Comment on above: Order Comment: No: D o not add to previous draw Performed By: #### 1 69, 03496 #### [facility] [address] [place] [address], [place] Creatinine [Mass/Vol] 0.82 mg/dL Normal 0.60-1.20 [facility] Comment on above: Order Comment: No: D o not add to previous draw Performed By: #### 1 69, [id number] #### [facility] [address] [place] [address], [place] GFR/1.73 sq M.predicted among blacks MDRD (S/P/Bld) [Vol rate/Area] mL/min/{1.73_m2} Normal >60 [facility] Comment on above: Order Comment: No: D o not add to previous draw Performed By: #### 1 69, 87413 #### [facility] [address] [place] [address], [place] GFR/1.73 sq M.predicted among non-blacks MDRD (S/P/Bld) [Vol rate/Area] mL/min/{1.73_m2} Normal >60 [facility] Comment on above: Order Comment: No: D o not add to previous draw Performed By: #### 1 69, 09266 #### [facility] [address] [place] [address], [place] Glucose [Mass/Vol] 109 mg/dL High 70-100 [facility] Comment on above: Order Comment: No: D o not add to previous draw Performed By: #### 1 69, 30198 #### [facility] [address] [place] [address], [place] Potassium [Moles/Vol] 4.0 mmol/L Normal 3.5-5.1 [facility] Comment on above: Order Comment: No: D o not add to previous draw Performed By: #### 1 69, 64746 #### [facility] [address] [place] [id number], [facility] Sodium [Moles/Vol] 134 mmol/L Low 136-145 [facility] Comment on above: Order Comment: No: D o not add to previous draw Performed By: #### 1 69, 33519 #### [facility] [address] [place] [address], [facility] Urea nitrogen [Mass/Vol] 12 mg/dL Normal 7-25 [facility] Comment on above: Order Comment: No: D o not add to previous draw Performed By: #### 1 69, 37105 #### [facility] [address] CBC COMPLETE BLOOD COUNTon 0 - Erythrocyte distribution width (RBC) [Ratio] 15.5 % High 11.5-15.0 [facility] Comment on above: Order Comment: No: D o not add to previous draw Performed By: #### 5 [id number] #### [facility] [address] [place] [address], [facility] Hematocrit (Bld) [Volume fraction] 36.9 % Normal 36.0-45.0 The [facility] Comment on above: Order Comment: No: D o not add to previous draw Performed By: #### 5 0608 #### [facility] [address] [place] [id number], [facility] Hemoglobin (Bld) [Mass/Vol] 11.5 g/dL Low 12.0-15.0 [facility] Comment on above: Order Comment: No: D o not add to previous draw Performed By: #### 5 0608 #### [facility] [address] [place] [address], [facility] MCH (RBC) [Entitic mass] 27.1 pg Normal 27.0-33.0 [facility] Comment on above: Order Comment: No: D o not add to previous draw Performed By: #### 5 0608 #### [facility] [address] [place] [id number], [facility] MCHC (RBC) [Mass/Vol] 31.2 g/dL Low 32.0-35.0 [facility] Comment on above: Order Comment: No: D o not add to previous draw Performed By: #### 5 0608 #### [facility] [address] [place] [address], [facility] MCV (RBC) [Entitic vol] 87.0 fL Normal 82.0-98.0 [facility] Comment on above: Order Comment: No: D o not add to previous draw Performed By: #### 5 0608 #### [facility] [address] [place] [address], [facility] Nucleated RBC/100 WBC (Bld) [Ratio] 0 % Normal 0-0 [facility] Comment on above: Order Comment: No: D o not add to previous draw Performed By: #### 5 0608 #### [facility] [address] [place] [id number], [facility] PLAT CNT 258 10*3/uL Normal 150-400 [facility] Comment on above: Order Comment: No: D o not add to previous draw Performed By: #### 5 0608 #### [facility] [address] [place] [id number], [facility] RBC (Bld) [#/Vol] 4.24 10*6/uL Normal 3.80-5.00 [facility] Comment on above: Order Comment: No: D o not add to previous draw Performed By: #### 5 0608 #### [facility] [address] [place] [address], [facility] WBC (Bld) [#/Vol] 10.20 10*3/uL Normal 4.00-10.60 [facility] Comment on above: Order Comment: No: D o not add to previous draw Performed By: #### 5 0608 #### [facility] [address] [facility] [address] MAGNESIUM BLOODon 08-10-2021 Magnesium [Mass/Vol] 2.2 mg/dL Normal 1.9-2.7 [facility] Comment on above: Order Comment: No: D o not add to previous draw Performed By: #### 1 0070, [id number] #### [facility] [address] APTTon 08-09-2021 aPTT Coag (Bld) [Time] 26.9 s Normal 25.0-35.0 [facility] Comment on above: Result Comment: ALL [...] THIS PURPOSE. Performed By: #### 5 6101, [id number] #### [facility] [address] [place] [address], [facility] CBC W/DIFFon 08-09-2021 ABS IMM GRANS 0.0 10*3/uL Normal 0.0-0.2 [facility] Comment on above: Performed By: #### 5 0103 #### [facility] [address] [place] [address], [facility] ABS NEUTROPHILS 5.1 10*3/uL Normal 1.6-7.6 [facility] Comment on above: Performed By: #### 5 0103 #### [facility] [address] [place] [address], [facility] Basophils (Bld) [#/Vol] 0.0 10*3/uL Normal 0.0-0.2 [facility] Comment on above: Performed By: #### 5 0103 #### [facility] [address] [place] [address], [facility] Basophils/100 WBC (Bld) 0.4 % Normal 0.0-1.0 [facility] Comment on above: Performed By: #### 5 0103 #### [facility] [address] [place] [address], [facility] Eosinophils (Bld) [#/Vol] 0.2 10*3/uL Normal 0.0-0.5 [facility] Comment on above: Performed By: #### 5 0103 #### [facility] [address] [place] [address], [facility] Eosinophils/100 WBC (Bld) 2.3 % Normal 0.0-6.0 [facility] Comment on above: Performed By: #### 5 0103 #### [facility] [address] [place] [address], [facility] Erythrocyte distribution width (RBC) [Ratio] 15.3 % High 11.5-15.0 [facility] Comment on above: Performed By: #### 5 0103 #### [facility] [address] [place] [address], [facility] Hematocrit (Bld) [Volume fraction] 37.4 % Normal 36.0-45.0 [facility] Comment on above: Performed By: #### 5 0103 #### [facility] [address] [place] [address], [facility] Hemoglobin (Bld) [Mass/Vol] 11.5 g/dL Low 12.0-15.0 [facility] Comment on above: Performed By: #### 5 0103 #### [facility] [address] [place] [address], [facility] IMMATURE GRANS 0.3 % Normal 0.0-1.0 [facility] Comment on above: Performed By: #### 5 0103 #### [facility] [address] [place] [address], [facility] Lymphocytes (Bld) [#/Vol] 1.1 10*3/uL Low 1.2-4.0 [facility] Comment on above: Performed By: #### 5 0103 #### [facility] [address] [place] [address], [facility] Lymphocytes/100 WBC (Bld) 16.1 % Low 20.0-45.0 [facility] Comment on above: Performed By: #### 5 3 #### [facility] [address] MCH (RBC) [Entitic mass] 26.9 pg Low 27.0-33.0 [facility] Comment on above: Performed By: #### 5 3 #### [facility] [address] MCHC (RBC) [Mass/Vol] 30.7 g/dL Low 32.0-35.0 [facility] Comment on above: Performed By: #### 5 3 #### [facility] [address] [place] [address], [facility] MCV (RBC) [Entitic vol] 87.4 fL Normal 82.0-98.0 [facility] Comment on above: Performed By: #### 5 3 #### [facility] [address] [place] [address], [facility] Monocytes (Bld) [#/Vol] 0.6 10*3/uL Normal 0.1-1.0 [facility] Comment on above: Performed By: #### 5 102 #### [facility] [address] [place] [address], [facility] MONOS 8.8 % Normal 5.0-12.0 [facility] Comment on above: Performed By: #### 102 #### [facility] [address] [address], [facility] Neutrophils/100 WBC (Bld) 72.1 % High 40.0-72.0 [facility] Comment on above: Performed By: #### 102 #### [facility] [address] [place] [address], [facility] Nucleated RBC/100 WBC (Bld) [Ratio] 0 % Normal 0-0 [facility] Comment on above: Performed By: #### 102 #### [facility] [address] [place] [address], [facility] PLAT CNT 271 10*3/uL Normal 150-400 [facility] Comment on above: Performed By: #### 102 #### [facility] [address] [place] [address], [facility] RBC (Bld) [#/Vol] 4.28 10*6/uL Normal 3.80-5.00 [facility] Comment on above: Performed By: #### 102 #### [facility] [address] [place] [address], [facility] WBC (Bld) [#/Vol] 7.02 10*3/uL Normal 4.00-10.60 [facility] Comment on above: Performed By: #### 102 #### [facility] [address] COMP METABOLIC PANELon 08-09 Albumin [Mass/Vol] 3.8 g/dL Normal 3.5-5.7 [facility] Comment on above: Performed By: #### 0 012 #### [facility] [address] [place] [address], [facility] ALKALINE PHOSPH 140 IU/L High 34-104 [facility] Comment on above: Performed By: #### 0 0121 #### [facility] [address] [place] [address], [place] ALT [Catalytic activity/Vol] 13 U/L Normal 7-52 [facility] Comment on above: Performed By: #### 0 0121 #### [facility] [address] [place] [address], [place] AST [Catalytic activity/Vol] 17 U/L Normal 13-39 [facility] Comment on above: Performed By: #### 0 0121 #### [facility] [address] [place] [address], [place] Bilirubin [Mass/Vol] 0.5 mg/dL Normal 0.3-1.0 [facility] Comment on above: Performed By: #### 0 0121 #### [facility] [address] [place] [address], [place] Calcium [Mass/Vol] 8.7 mg/dL Normal 8.6-10.3 The [facility] Comment on above: Performed By: #### 0 0121 #### [facility] [address] [place] [address], [place] Chloride [Moles/Vol] 104 mmol/L Normal 98-107 [facility] Comment on above: Performed By: #### 0 0121 #### [facility] [address] [place] [address], [place] CO2 [Moles/Vol] 28 mmol/L Normal 21-31 The [facility] Comment on above: Performed By: #### 0 0121 #### [facility] [address] [place] [address], [place] Creatinine [Mass/Vol] 0.74 mg/dL Normal 0.60-1.20 [facility] Comment on above: Performed By: #### 0 0121 #### [facility] [address] [place] [address], [place] GFR/1.73 sq M.predicted among blacks MDRD (S/P/Bld) [Vol rate/Area] mL/min/{1.73_m2} Normal >60 The [facility] Comment on above: Performed By: #### 0 0121 #### [facility] [address] [place] [address], [facility] GFR/1.73 sq M.predicted among non-blacks MDRD (S/P/Bld) [Vol rate/Area] mL/min/{1.73_m2} Normal >60 The [facility] Comment on above: Performed By: #### 0 0121 #### [facility] [address] [place] [address], [facility] Glucose [Mass/Vol] 116 mg/dL High 70-100 The [facility] Comment on above: Performed By: #### 0 0121 #### [facility] [address] [place] [address], [facility] Potassium [Moles/Vol] 3.9 mmol/L Normal 3.5-5.1 The [facility] Comment on above: Performed By: #### 0 0121 #### [facility] [address] [place] [id number], [facility] Protein [Mass/Vol] 6.4 g/dL Normal 6.0-8.3 The [facility] Comment on above: Performed By: #### 0 0121 #### [facility] [address] [place] [address], [facility] Sodium [Moles/Vol] 138 mmol/L Normal 136-145 The [facility] Comment on above: Performed By: #### 0 0121 #### [facility] [address] [place] [address], [facility] Urea nitrogen [Mass/Vol] 10 mg/dL Normal 7-25 The [facility] Comment on above: Performed By: #### 0 0121 #### [facility] [address] [place] [id number] Cardiovascular Lab Reporton 08-09-2021 Cardiovascular Lab Report [facility] Patient Name: Angie Watt [facility] MR #: [id number] Physician: Charli Pulido MD Department of Service Date: 08/09/2021 Medicine Birthdate: 1950 Division of Room #: 3CD [id number] Cardiology Adult Cardiovascular Services [facility] [address] [place] [id number] Cardiovascular Laboratory Report ATRIAL FIBRILLATION ABLATION PROCEDURE [...] in Afib. Esophagus was mapped using the SPARQUND 3D mapping software with quadripolar catheter and [...] perform (more content not included)... Normal The [facility] POC GLUCOSE LABon 08-09-2021 Glucose [Mass/Vol] 107 mg/dL High 70-100 The [facility] Comment on above: Performed By: #### 8 5499 #### [facility] [address] [place] [address], [facility] PROTHROMBIN TIMEon INR Coag (PPP) [Relative time] 1.01 {INR} Normal 0.91-1.16 The [facility] Comment on above: Result Comment: ACCC [...] CHEST 1995;108:[id number]. Performed By: #### 5 6101, 17398 #### [facility] [address] [place] [address], [facility] PT Coag (PPP) [Time] 13.3 s Normal 12.3-14.8 The [facility] Comment on above: Result Comment: ALL RESULTS MUST BE INTERPRETED WITH RESPECT TO BLOOD DRAWING ARTIFACT OR DILUTION ERROR OF ANTICOAGULANT AT THE TIME OF SAMPLING. Performed By: #### 5 3771, [address]3623 #### [address] [address], [facility] CTA CHESTon 08-08-2021 CTA CHEST [facility] Department of Radiology [address] [place] [id number] ======== Patient Name: ANGIE WATT : 1950 Sex: F Age: Race: White Pt. Location: Patient Status: O Ordered Date: 07/27/2021 1:35:00 PM Completed Date: 08/08/2021 12:58 PM Requesting Provider: CHARLI PULIDO Attending Provider: CHARLI PULIDO Report Copy To: KERRI SMITH Signs & Symptoms: I48.0 Paroxysmal atrial fibrillation I10 History: [place] patient will need labs need to schedule [...] examination. Electronically signed: Audrey Umana. Transcribed by: [email or web address], User Resident: Electronically Signed by: AUDREY UMANA @ 08/08/2021 03:05 PM Normal The [facility] Comment on above: Order Comment: Gavin Ablation 08/09/21 Covid-19 PCR (CVDTB)on 05-18 SARS-CoV-2 (COVID-19) RNA SP+probe Ql (Unsp spec) Not detected Normal NOT DETECTED The [facility] Comment on above: Result Comment: This test is not yet approved or cleared by the [place] FDA. When there are no FDA-approved or cleared tests available, and other criteria are met, FDA can make tests available under an emergency access mechanism called an Emergency Use Authorization (EUA). The EUA for this test is supported by the Net Developer Programmer of Health and Human Service's (HHS's) declaration [...] consistent with SARS-CoV-2. Performed By: #### [facility] #### [facility] [address] [place] [address] Dr. Maik Singleton Vital Signs Date Time Vital Sign Value Performing Clinician Gustabo burris 01-21-2024 14:18-0400 Blood Pressure Location Restore Water [facility] 01-21-2024 14:18-0400 Diastolic blood pressure 78 mm[Hg] Pasha [place] [employer] [facility] 01-21-2024 14:18-0400 Heart rate 72 /min Pasha PETERL [facility] 01-21-2024 14:18-0400 Respiratory rate 16 /min Pasha PETERL [facility] 01-21-2024 14:18-0400 Systolic blood pressure 136 mm[Hg] Pasha BACH [facility] Encounters Encounter Date Encounter Type Care Provider Facility Start: 02-11-2024 ambulatory SAIDA LAI [facility] Start: 01-29-2024 [facility] Start: 01-29-2024 Evaluation and manag ement of inpatient IRMA SIMMONSLEY [facility] Start: 01-28-2024 End: 02-02-2024 Evaluation and management of inpatient KERRI SMITH [facility] Start: 01-21-2024 End: 01-21-2024 ambulatory Pasha BACH Facility:[facility] Start: 01-21-2024 End: 01-21-2024 Patient encounter procedure Pasha BACH [facility] Start: 12-24-2023 ambulatory RIZWANA CONNORS [facility] Start: 11-26-2023 ambulatory Pasha BACH Facility:[facility] Start: 11-21-2023 Evaluation and manag ement of inpatient [facility] Start: 11-20-2023 Evaluation and manag ement of inpatient ROHIT DELCID [facility] Start: 11-20-2023 End: 11-22-2023 Evaluation and management of inpatient EDUARDO WALKER [facility] Start: 06-18-2023 End: 06-18-2023 ambulatory LISSA [facility] Start: 03-07-2022 End: 03-07-[address] KERRI SMITH Facility: Start: 08-09-2021 End: 08-10-2021 ambulatory KERRI SMITH Facility:[facility] Start: 06-18-2021 Encounter for preprocedural laboratory examination CHARLI PULIDO [facility] Start: 06-14-2021 End: 06-14-[address] DOCTOR DIXON Facility:[facility] Start: 06-12-2021 End: 06-12-2021 ambulatory CHARLI PULIDO Facility:[facility] Start: 06-12-2021 End: 06-12-2021 Encounter for preprocedural laboratory examination CHARLI PULIDO Facility:[facility] Procedures Date Procedure Procedure Detail Performing Clinician Cardiac radiofrequen cy ablation using ultrasound guidance Pasha BACH Cholecystectomy Pasha BACH Immunizations Immunization Date Immunization Notes Care Provider Fa cili 04-11-2022 SARS-CoV-2 mRNA (ypwmnupvyhe-kvdy-isfww se) vaccine Pasha BACH [facility] Comment on above: Result Comment: 2023: [id number] 02-14-2022 SARS-CoV-2 mRNA (npeilrxntmh-jcwm-indyv se) vaccine Pasha BACH [facility] Comment on above: Result Comment: 2023: [id number] Payers Date Payer Category Payer Medicare [id number] 1957 Private Health Insurance [id number] 1950 Unknown [id number] [id number] 1950 Unknown [id number] [id number] [id number] 1950 Unknown [id number] 2.16.84 [id number] 1950 Unknown [id number] 2.16.84 [id number] 1950 Unknown [id number] 2.16.8 [id number] Social History Date Type Detail Facility Start: 01-21-2024 Tobacco smoking status Ex-smoker (fi nding) [facility] Tobacco smoking status Never [facility] Sex Assigned At Female [facility] Functional Status Date Assessment Result Facility 01-21-2024 Functional Status N/A [facility] Clinical Notes 06-14-2021 to 02-12-2024 Note Date & Type Note Facility 02-12-2024 Note RCRI=2 points Class III Risk 10.1 % 30-day risk of , [place], or cardiac arrest From a cardiac perspective [...] major fluid shifts. Rizwana Connors [facility] Cardiology Available 7a-5pm via [employer] Chat Pager [phone] [facility] 02-11-2024 Note Subjective Patient ID: Angie [...] past 36 hour(s)). No follow-ups on file. [facility] 02-10-2024 Note General Surgery Offi ce/Clinic Note Chief Complaint consultation for diverticulitis HPI Staff 73 year old female presents on consultation from Dr. Smith for diverticulitis. Presented to [place] ED 11/19/23 with complaint of abdominal pain and nausea. CT ABD with sigmoid diverticulitis with concern for possible megacolon. Patient was transferred to [place] with symptomatic care provided during hospital stay. Never had colonoscopy in the past. On Eliquis for a.fib. Reports two additional episodes of abdominal pain, constipation and nausea since discharge from [place]. Both episodes she presented to [place] ED with CT's completed both times. History of Present Illness 73 yo female with h/o atrial fibrillation, on Eliquis, DMII, htn, hyperlipidemia, hypothyroidism, KYLEE, chronic diverticular disease, referred for recurrent diverticulitis with possible diverticular stricture verses colonic mass; patient has had problems since October; was in [place] ED 11/19/23 had abd/pelvic ct scan with evidence of sigmoid diverticulitis and dilated proximal colon; transferred to [facility]; reportedly treated with antibiotics and discharged; patient [...] BMI 40.0-44.9, ad (more content not included)... [facility] Comment on above: Result Comment: Elec tronically [...] 's note and agree with the documentation [facility] General Surgery DAILY PROGRESS NOTE Subjective Today [...] L4-L5. Impression: *Circum (more content not included)... [facility] 02-02-2024 Note Hospital Medicine Discharge Summary [...] and Anxiety. She has been sent from [facility] where she was admitted on January [...] Admission: General Surgery Dear Dr. Nuzhat MD, [place] is advised to follow up with you [...] Espitia MD Hospit (more content not included)... [facility] 02-01-2024 Note Attestation signed by Clyde Wayne MD at 02/02/2024 8:21 AM GC: I saw this patient. I personally was physically present for the critical/king portions that determines the level of service. I was directly involved in the management and treatment plan of the patient. I reviewed resident Italo Stewart MD 's note and agree with the documentation [facility] General Surgery DAILY PROGRESS NOTE Subjective S/p [...] up to 2. (more content not included)... [facility] 02-01-2024 Note Hospital Medicine Daily Progress Note - 02/01/2024 11:38 AM; Room: [address] [place] [address] Admission: 01/28/2024 6:04 PM; Length of stay: 4 days THE HOSPITALIST TEAM PREFERS TO USE [employer] CHAT FOR COMMUNICATION 7AM-7PM. IF I DO NOT RESPOND WITHIN 15 MINUTES, PLEASE PAGE ME/CALL THROUGH THE [facility] WORKER. FROM 7PM-7AM, PLEASE PAGE [phone](COVR) Code Status: Full Code Barriers to Discharge: [...] , FREET4 , CORTISOL , FEV1 , GYV1TKY , DLCO , RVSP , HDL , [...] a separate workstat (more content not included)... [facility] 01-31-2024 Note Patient: Angie Watt Procedure Summary Date: 01/31/24 Room / Location: [facility] OPERATING ROOM 01 / [facility] Operating Room Anesthesia Start: 162 Anesthesia [...] per anesthesia protocol. No notable events documented. [facility] 01-31-2024 Note Patient: Angie Watt Procedure Summary Date: 01/31/24 Room / Location: [facility] OPERATING ROOM 01 / [facility] Operating Room Anesthesia Start: 1628 Anesthesia Stop: Procedure: COLONOSCOPY Diagnosis: Stricture of colon (CMS/HCC) (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]) Surgeons: Saida Lai MD Responsible Provider: Reagan Ortiz MD Anesthesia Type: MAC ASA Status: 3 Anesthesia Post Transport Note Transport to: PACU O2 Route: room air Patient Monitor: direct observation Transport: uneventful Patient condition is: stable [facility] 01-31-2024 Note Patient: Angie Watt Procedure Information Date/Time: 01/31/24 1530 Procedure: COLONOSCOPY Location: [facility] OPERATING ROOM 01 / [facility] Operating Room Surgeons: Saida Lai MD [...] Plan discussed with CAA. Additional Equipment Requests [facility] 01-31-2024 Note 01/31/24 0686 Admission Assessment Questions Verify insurance with patient [...] Status Interested Does the patient have a director of casework assigned to them through their insurance? No [...] activate MyChart? Yes (email link sent to: [email or web address] Screen completed with patient & daughter [place] present at bedside. Await medical stability : ?weekend dc pending results of today's Scope, Colonoscopy today, Nyasia on hold. Dc Plan : return Home, no needs. Daughter will transport home; Agreeable to iMeds. [facility] 01-31-2024 Note Attestation signed by Saida Lai MD at 01/31/2024 7:02 PM Attending Physician Statement I have discussed the case, including pertinent history and exam findings with Dr. Caruso, vice president media relations and have personally seen the patient. I agree with the assessment, plan and orders as documented. [phone] pager [phone] phone [facility] General Surgery DAILY PROGRESS NOTE Subjective No [...] for malignancy. Colonosc (more content not included)... [facility] 01-31-2024 Note Hospital Medicine Daily Progress Note - 01/31/2024 8:21 AM; Room: [address] [place] [address] Admission: 01/28/2024 6:04 PM; Length of stay: 3 days THE HOSPITALIST TEAM PREFERS TO USE [employer] CHAT FOR COMMUNICATION 7AM-7PM. IF I DO NOT RESPOND WITHIN 15 MINUTES, PLEASE PAGE ME/CALL THROUGH THE [facility] WORKER. FROM 7PM-7AM, PLEASE PAGE [phone](COVR) Code Status: Full Code Barriers to Discharge: Colonoscopy today, Eliquis Held Expected Discharge Date: 1 day Discharge Destination: home Overview Patient is seen for evaluation and management of constipation with abdominal CT concerning for metastatic colon cancer. Subjective Ms. Angie Watt is a 73 year old female who was admitted from [facility] with a chief complaint of more [...] oral, Daily beltran (more content not included)... [facility] 01-30-2024 Note Spiritual Care Note Patient name: Angie Watt Age: 73 y.o. Room: [address] [place] [address]- Angie has a good attitude but expressed [...] Hopeful;Frustrated Pastoral Intervention Emotional support Response Encouraged;Hopeful [facility] 01-30-2024 Note Hospital Medicine Daily Progress Note - 01/30/2024 9:02 AM; Room: [address] [place] [address] Admission: 01/28/2024 6:04 PM; Length of stay: 2 days THE HOSPITALIST TEAM PREFERS TO USE [employer] CHAT FOR COMMUNICATION 7AM-7PM. IF I DO NOT RESPOND WITHIN 15 MINUTES, PLEASE PAGE ME/CALL THROUGH THE [facility]ILD [facility] WORKER. FROM 7PM-7AM, PLEASE PAGE [phone](COVR) Code Status: Full Code Barriers to Discharge: IV fluids, Need to restart OAC Expected Discharge Date: 1 day Discharge Destination: home Overview Patient is seen for evaluation and management of constipation with abdominal CT concerning for metastatic colon cancer. Subjective Ms. Angie Watt is a 73 year old female who was admitted from [facility] with a chief complaint of more [...] will defer to (more content not included)... [facility] 01-30-2024 Note Attestation signed by Saida Lai MD at 01/31/2024 10:05 AM Attending Physician Statement I have discussed the case, including pertinent history and exam findings with Dr. Stewart, vice president media relations and have personally seen the patient. I agree with the assessment, plan and orders as documented. See the full colonoscopy on January 31, 2024. [phone] pager [phone] phone [facility] General Surgery DAILY PROGRESS NOTE Subjective NAEON, [...] *Segment 4 hep (more content not included)... [facility] 01-29-2024 Note Attestation signed by Saida Lai MD at 01/31/2024 10:04 AM Attending Physician Statement I have discussed the case, including pertinent history and exam findings with Dr. Stewart, vice president media relations and have personally seen the patient. I agree with the assessment, plan and orders as documented. Proceed for colonoscopy on January 31, 2024. [phone] pager [phone] phone [facility] General Surgery DAILY PROGRESS NOTE Subjective NAEON, [...] 3.6 cm. Fusiform (more content not included)... [facility] 01-29-2024 Note Hospital Medicine History and Physical 01/29/2024 1:08 AM THE HOSPITALIST TEAM PREFERS TO USE [employer] FOR COMMUNICATION 7AM-7PM. IF I DO NOT RESPOND WITHIN 15 MINUTES, PLEASE PAGE ME/CALL THROUGH THE CHILD [facility]ARE [facility] WORKER. FROM 7PM-7AM, PLEASE PAGE [phone](COVR) Chief Complaint No chief complaint on file. History of Present Illness Angie Watt is an 73 y.o. female admitted from [facility] with chief complaint of diffuse abdominal discomfort bloating and nausea since more than a week pain generalized all over her belly nonradiating had constipation since past 4 to 5 days has been having persistent nausea worse with eating but no vomiting patient was seen in the ER at [facility] had workup done including CBC which [...] hospital who recommended patient be transferred to [facility]. At the time of [...] this hospital stay by a member of [facility]. Past Medical History Past Medical History: Diagnosis Date Abnormal ECG Arrhythmia Atrial fibrillation (CMS/HCC) Hypertension Hypothyroidism Paroxysmal atrial fibrillation (CMS/HCC) 05/15/2022 Sleep apnea P (more content not included)... [facility] 12-24-2023 Note Hypertension is unch anged. Continue current medications. Blood pressure will be reassessed at the next regular appointment Continue to monitor at home- goal is < 130/80. [facility] 12-24-2023 Note [facility] CARDIOLOGY PROGR ESS NOTE HPI: Angie Watt is a 73 y.o. female here for routine F/U HPI 73 y.o. year old with past medical history of A-fib s/p PVI as well as posterior box isolation 07/2021, hypertension, HFpEF, anxiety. B/P at home 130-135/ 70-80 No episodes of A fib/flutter since last visit- she monitor with [employer]. Denied chest pain, SOB, orthopnea, palpitations. Recently was admitted for acute diverticulitis at [facility]. Previous HPI per [place] [...] PMHx: a.fib; HTN, anxiety FMHx: father - [place]; sister - a.fib; father - a.fib Echocardiogram [...] Dorsalis pedis pulses (more content not included)... [facility] 12-24-2023 Note Patient here for 6 [...] All other systems reviewed and are negative. [facility] 12-24-2023 Note [id number]= 3- age , Female, HTN Recent EKG sinus rhythm 11/20/23 - continues amiodarone 100mg daily, coreg and diltiazem -s/p PVI ([facility]) + Superior roof and Inferior line (posterior box isolation) + CTI 07/2021 -Continue yearly eye exams, and CXR/TSH/LFTs annually- pt refuses q 6months [facility] 11-22-2023 Note [facility] General Surgery DAILY PROGRESS NOTE Subjective Observed [...] Casey Tanner MD PGY-1 General Surgery Resident [facility] 11-22-2023 Note Problem: Pain Goal: LTG-Verbalize [...] and behaviors that affect risk of falls Dixie fall precautions as indicated by assessment Educate [...] exacerbated and prevent overall improvement and discharge [facility] 11-21-2023 Note Attestation signed by Saida Lai MD at 11/23/2023 2:06 PM Attending Physician Statement I have discussed the case, including pertinent history and exam findings with Dr. Tanner, vice president media relations and have personally seen the patient. I agree with the assessment, plan and orders as documented. [phone] pager [phone] phone [facility] General Surgery DAILY PROGRESS NOTE Subjective NAEO. 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 Maybe Screened via [facility]. Patient is from home, with daughter, and reports goal to return at discharge. She endorses utilization of a shower chair, walker, and CPAP at night. [facility] 11-20-2023 Note 11/20/23 0946 Admission Assessment [...] Discharge? Yes Does the patient have a director of casework assigned to them through their insurance? No [...] to send link and activate MyChart? No [facility] 06-18-2023 Note PR Electrophysiology Consult Note Reason for visit: AF [...] PMHx: a.fib; HTN, anxiety FMHx: father - [place]; sister - a.fib; father - a.fib Echocardiogram [...] No current facilit (more content not included)... [facility] 06-18-2023 Note Patient here for 6 m o follow up PAF, hypertension, and BYNUM. She had thyroid function drawn in Apr 2023, but CXR hasn't been done since November [address]22. Dr. mSith increased carvedilol to 6.25mg bid. He also [...] All other systems reviewed and are negative. [facility] 06-14-2021 Note [facility] [place], [place] NAME: ANGIE WATT A DATE OF : MEDICAL REC#: [id number] [employer] FINISHER: CASSIE DOMINGUEZ ADMIT DATE: 06/14/2021 08:37:00 POCKET CREASER DATE: 06/20/2021 08:00 DICTATING PHYSICIAN: CHARLI PULIDO DICTATION DATE: 06/14/2021 18:00 duplicate entry Electronically Authenticated and Edited by: Charli Pulido MD on 12/05/2021 07:50 PM EDT [facility] [place], [place] NAME: ANGIE WATT A DATE OF : MEDICAL REC#: [id number] [employer] FINISHER: CASSIE DOMINGUEZ ADMIT DATE: 06/14/2021 08:37:00 POCKET CREASER DATE: 06/20/2021 08:00 DICTATING PHYSICIAN: CHARLI PULIDO [...] in an anterior/posterior direction. 360 joules of Coos's cardioversion on two occasions did not convert [...] Approved by: CHARLI PULIDO 12/05/2021 19:42:00 The [facility] Evaluation + Plan note No data available for this section [facility] Hospital Discharge instructions No data available for this section [facility] Progress note No data available for this section [facility] Summary Purpose Family History No [...] and content) DATE CREATED AUTHOR 08/17/2021 [facility] DATE CREATED AUTHOR AUTHOR'S ORGANIZ ATION 05/19/2022 [facility] DATE CREATED AUTHOR AUTHOR'S ORGANIZ ATION 02/11/2024 [facility] DATE CREATED AUTHOR AUTHOR'S ORGANIZ ATION 02/15/2024 [facility] Patient Care team informatio n (unrecognized section and content) Personnel Name: Kerri Smith MD Address: Address: [address] [place] [address] FOR RECORDS PERTAINING TO PATIENTS WHO ARE [...] BE BASED ON THE PRIMARY CLINICAL RECORDS. [employer] [facility]. provides no warranty or guarantee of the accuracy or completeness of information in this document.
--- NOTE | 2024-03-16 13:39 | XR_ITS ---
The [address] [address] Patient Name: ANGIE WATT MRN: [id number] date: 1950 Sex: F Assigned Patient Location: [facility] Current Patient Location: [facility] Accession/Order Number: [id number] Exam Date: 03/16/2024 13:50 Report Date: 03/16/2024 14:27 At the request of: KERRI NOLAND Procedure: XR acute abdomen series EXAMINATION: XR acute abdomen series HISTORY: Diverticulitis K57.92 ; recent bowel obstruction COMPARISON: XR Acute abdomen series 03/11/2024 FINDINGS: LUNGS: No infiltrate, pneumothorax, or pleural effusion. MEDIASTINUM: No abnormal widening. BOWEL GAS PATTERN: Abnormally distended, air-filled loops of small and large bowel within the upper abdomen with air-fluid levels. FREE AIR: None. CALCIFICATIONS: None significant. BONES: No fracture or visible bone lesion. OTHER: Negative. XR/XR acute abdomen series IMPRESSION: 1. No acute cardiopulmonary process. 2. Ileus versus distal bowel obstruction. Ileus is favored and appears to have progressed since prior study. Electronically authenticated by: ABRAHAN FRASER Date: 03/16/2024 14:27
== END 2024-03-16 13:25 | disposition home or self-care (01) ==
LOC: RAD 13:29
PROVIDERS: PCP Family Medicine; Visit Provider Family Medicine
DX: K57.92 Diverticulitis of intestine, part unspecified, without perforation or abscess without bleeding (principal)
CPT/HCPCS: 74022

== ENCOUNTER 2024-03-16 15:41 | Outpatient (OUT) | payer MEDICARE, OTHER, SELFPAY ==
--- NOTE | 2024-03-16 15:48 | CT_ITS ---
[address] [address] Patient Name: ANGIE WATT MRN: [id number] date: 1950 Sex: F Assigned Patient Location: [facility] Current Patient Location: [facility] Accession/Order Number: [id number] Exam Date: 03/16/2024 17:40 Report Date: 03/16/2024 18:58 At the request of: KERRI NOLAND Procedure: CT abdomen pelvis w con CT ABDOMEN/PELVIS WITH IV CONTRAST. INDICATION: Acute Intestinal Obstruction K56.609. COMPARISON: 03/08/2024. TECHNIQUE: Contiguous axial images were obtained from the lung bases to the pelvic floor following the intravenous administration of contrast. Coronal and sagittal reformations are provided. FINDINGS: LOWER LUNGS: Clear. LIVER/BILIARY TREE: No mass. No intrahepatic ductal dilatation. GALLBLADDER: No significant gallbladder wall thickening. No radiopaque stone. CBD: Normal CBD. SPLEEN: Normal in size. PANCREAS: No acute findings. No peripancreatic fluid or inflammation. No pancreatic duct dilatation. No discrete mass. ADRENALS: Normal. KIDNEYS: No hydronephrosis. No radiopaque calculus. STOMACH AND BOWEL: Stomach is unremarkable. No dilated bowel loops. There is diffuse colonic distention and mild wall thickening. There is mild transitioning in the proximal sigmoid colon APPENDIX: Not visualized. PERITONEAL CAVITY: No fluid. No fat stranding. ABDOMINAL WALL: No subcutaneous stranding. No subcutaneous fluid collection. LYMPH NODES: No mesenteric or retroperitoneal lymphadenopathy by CT criteria. ABDOMINAL AORTA: Stable 3.6 cm fusiform aneurysm of the infrarenal abdominal aorta.. 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 PELVIS: No acute abnormality. MUSCULOSKELETAL: No acute osseous abnormality. There is grade 2 anterolisthesis at L4-5 secondary to chronic bilateral spondylolysis. CT/CT abdomen pelvis w con IMPRESSION: 1. Diffuse colonic distention and thickening suggestive of colitis and ileus.. Mild transitioning in the proximal sigmoid colon. Consider colonoscopy for further evaluation. 2. Stable infrarenal abdominal aorta 2.6 cm aneurysm. 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 Electronically authenticated by: SETH GARCIA Date: 03/16/2024 18:58
--- OUTSIDE RECORDS SUMMARY | 2024-03-16 15:50 | XMS_ITS | CCD ---
Author Organization [facility] CliniSyca Care Team Providers Care Educational Diagnostician Name Role Phone KERRI SMITH Referring Unavailable KERRI SMITH Primary Care Unavailable CHARLI PULIDO Attending Unavailable CHARLI PULIDO Admitting Unavailable MISC, DR FLAHERTY Admitting Unavailable NUZHAT, DR MANNING Primary Care Unavailable MISC, DR FLAHERTY Attending Unavailable MISC, DR FLAHERTY Consulting Unavailable JOE, CHALRI Consulting Unavailable HOY, DR MANNING Attending Unavailable [...] Medication Allergies] Propensity to adverse reactions (disorder) [facility] Repository Medications Current Medications Medication Drug [...] te Episodic/Chronic Other aftercare (2 sources) Other mcc (current) drug therapy; Translations: [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 Family History Problem Relation Age of Onset Heart attack Father Atrial fibrillation Father Atrial fibrillation Sister Family Status - Relation Status Age at Father Sister Normal [facility] Office Visiton 02-11-2024 Follow-up visit [id number] Angie Watt 1950 F Date Provider Department Center 02/11/2024 Mallika-SAIDA LAI [facility] SURG [place] Family History Problem Relation Age of Onset Heart attack Father Atrial fibrillation Father Atrial fibrillation Sister Family Status - Relation Status Age at Father Sister Level of Service:97827 [place] OFFICE/OUTPATIENT ESTABLISHED LOW MDM 20 MIN Reason for Visit and Comments: Post-op [483] - Angie is here today for post op visit: Stricture of colon, s/p 01/31/24 colonoscopy Normal [facility] 30on 01-31-2024 30 The patient is Moderately Stable - Low risk of patient condition declining or worsening The patient's goals for the shift include colonoscopy The clinical goals for the shift include VSS, safety Normal [facility] HISTOLOGY - TISSUE EXAMon LAB AP CASE REPORT Normal [facility] Comment on above: Order Comment: Pre-o p diagnosis: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] Result Comment: Surg ical Pathology Case: [id number] Authorizing Provider: Saida Lai MD Collected: 01/31/20245 Ordering Location: [facility] Main Operating Room Received: 02/03/2024 0616 Pathologist: Siobhan Kraft MD Specimens: A) - Large Intestine, Left/Descending Colon, 55cm colon tissue B) - Large Intestine, Sigmoid Colon, sigmoid biopsy 30cm Performed By: #### L [id number] ####[facility] LAB (BEAKER)[address] [facility] [address] LAB AP CLINICAL INFORMATION [facility] Comment on above: Order Comment: Pre-o p diagnosis: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 L arge Intestine, Left/Descending Colon. Received in formalin labeled Angie Nay, 55 cm colon tissue are four rosas soft tissue bits and strips, 0.1 to 0.6 cm. The specimen is entirely submitted in a single cassette. Blanca Chen, Pathologists' Electrical Timing Device Calibrator B. Large Intestine, Sigmoid Colon. Received in formalin labeled Angie Nay, Sigmoid biopsy 30 cm are nine rosas soft tissue bits, 0.2 to 0.4 cm. The specimen is entirely submitted in a single cassette. Blanca Chen, Pathologists' Electrical Timing Device Calibrator Performed By: #### L [id number] ####[facility] LAB (BEAKER)[address] [place] [address] LAB AP MICROSCOPIC DESCRIPTION Microscopic examination performed. 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 C olon, 55 cm, biopsy: - Tubular adenoma. B. Sigmoid colon, 30 cm, biopsy: - Colonic mucosa with no significant histologic abnormality. - No evidence of dysplasia. Performed By: #### L [id number] ####[facility] LAB (BERICKI)[address] [place] [place] [address] HPon 01-31-2024 HP H&P reviewed. The patient was examined and there are no changes to the H&P. CT scan showed thickening of the descending colon and sigmoid colon. Proceed for colonoscopy today. 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 Priority Lab ID A Large Intestine, Left/Descending Colon Tissue HISTOLOGY - TISSUE EXAM Saida Lai MD 01/31/241714 Description: 55cm colon tissue B Large Intestine, Sigmoid Colon Tissue HISTOLOGY - TISSUE EXAM Saida Lai MD 01/31/241715 Description: sigmoid biopsy 30cm Staff: Furnace Cleaner: Kaur Jacinto RN Scrub Person: Lacy Binting, PIN BALL MACHINE MECHANIC Indications: Angie Watt is an 73 y.o. female who is having surgery for Stricture of colon ([facility]) [K56.699]. Colonoscopy was offered to the patient, [...] 1. Await pathology Follow up with tx [phone] pager [phone] clinic Normal [facility] POCT GLUCOSE METER UNSOLICIT ED RESULTSon 01-31-2024 Glucose [Mass/Vol] 91 mg/dL Normal 70-105 [facility] Comment on above: Order Comment: Waive d Testing in the ED is performed under the ED CLIA certificate #[id number]. Result Comment: [email or web address] Performed By: #### L [id number] #### [facility] LAB (BEATRIZAKER) [address] [place] [address] 30on 01-30-2024 30 The patient is Moderately Stable - Low risk of patient condition declining or worsening The patient's goals for the shift include bowel prep The clinical goals for the shift include bowel prep, VSS Normal [facility] 30 The patient is Moderately Stable - [...] and behaviors that affect risk of falls Campbell fall precautions as indicated by assessment Problem: [...] symptoms for stability, deterioration, or improvement Normal [facility] CEAon 01-30-2024 CARCINOEMBRYONIC AG (NG/ML) IN SER/PLAS 2.0 ng/mL Normal 0-3 [facility] Comment on above: Performed By: #### L [id number] #### [facility] (BERICKI) [address] [place] [address] 30on 01-29-2024 30 The patient is Moderately [...] and behaviors that affect risk of falls Campbell fall precautions as indicated by assessment Problem: [...] symptoms for stability, deterioration, or improvement Normal [facility] 30 The patient is Moderately Stable - [...] and behaviors that affect risk of falls Campbell fall precautions as indicated by assessment Educate [...] and prevent overall improvement and discharge Normal [facility] 30 The patient is Moderately Stable - [...] and behaviors that affect risk of falls Campbell fall precautions as indicated by assessment Educate [...] and prevent overall improvement and discharge Normal [facility] BLOOD CULTUREon 01-28-2024 Bacteria identified Cx Nom (Bld) No growth at 5 days Normal [facility] Comment on above: Performed By: #### L [id number] ####[facility] LAB (BEAKER)[address] [place] [address] Order Comment: From a different site than #1., Blood CBC WITH AUTO DIFFERENTIALon 01-28-2024 Basophils (Bld) [#/Vol] 0.02 10*3/uL Normal 0.00-0.20 [facility] Comment on above: Performed By: #### L [id number] #### [facility] (BEAKER) [address] [facility] [place] [address] Basophils/100 WBC (Bld) 0.3 % Normal 0.0-1.0 [facility] Comment on above: Performed By: #### L [id number] #### [facility] (BEAKER) [address] [facility] [place] [address] Eosinophils (Bld) [#/Vol] 0.13 10*3/uL Normal 0.00-0.50 [facility] Comment on above: Performed By: #### L [id number] #### [facility] (BEAKER) [address] [facility] [place] [address] Eosinophils/100 WBC (Bld) 2.0 % Normal 0.0-6.0 [facility] Comment on above: Performed By: #### L [id number] #### [facility] (BEAKER) [address] [facility] [place] [address] Erythrocyte distribution width (RBC) [Ratio] 17.5 % High 11.5-15.0 [facility] Comment on above: Performed By: #### L [id number] #### [facility] ([facility] [address] [place] [address] ERYTHROCYTE MEAN CORPUSCULAR HEMOGLOBIN CONCENTRATION (G/DL) BY AUTOMATED 30.5 g/dL Low 32.0-35.0 [facility] Comment on above: Performed By: #### L [id number] #### [facility] ([facility]) [address] [place] [address] Hematocrit (Bld) [Volume fraction] 36.7 % Normal 36.0-48.0 [facility] Comment on above: Performed By: #### L [id number] #### [facility] ([facility]) [address] [place] [address] Hemoglobin (Bld) [Mass/Vol] 11.2 g/dL Low 12.0-15.0 [facility] Comment on above: Performed By: #### L [id number] #### [facility] ([facility]) [address] [place] [address] Immature granulocytes (Bld) [#/Vol] 0.02 10*3/uL Normal 0.00-0.20 [facility] Comment on above: Performed By: #### L [id number] #### [facility] ([facility]) [address] [place] [address] Immature granulocytes/100 WBC (Bld) 0.3 % Normal 0.0-1.0 [facility] Comment on above: Performed By: #### L [id number] #### [facility] (BEAKER) [address] [place] [address] Lymphocytes (Bld) [#/Vol] 1.37 10*3/uL Normal 1.20-4.00 [facility] Comment on above: Performed By: #### L [id number] #### [facility] (BEAKER) [address] [place] [address] Lymphocytes/100 WBC (Bld) 21.0 % Normal 20.0-45.0 [facility] Comment on above: Performed By: #### L [id number] #### [facility] (BEAKER) [address] [place] [address] MCH (RBC) [Entitic mass] 26.7 pg Low 27.0-33.0 [facility] Comment on above: Performed By: #### L [id number] #### [facility] ([facility]) [address] [place] [address] MCV (RBC) [Entitic vol] 87.4 fL Normal 82.0-98.0 [facility] Comment on above: Performed By: #### L [id number] #### [facility] ([facility]) [address] [place] [address] Monocytes (Bld) [#/Vol] 0.49 10*3/uL Normal 0.10-1.00 [facility] Comment on above: Performed By: #### L [id number] #### [facility] ([facility]) [address] [place] [address] Monocytes/100 WBC (Bld) 7.5 % Normal 5.0-12.0 [facility] Comment on above: Performed By: #### L [id number] #### [facility] ([facility]) [address] [place] [address] Neutrophils (Bld) [#/Vol] 4.48 10*3/uL Normal 1.60-7.60 [facility] Comment on above: Performed By: #### L [id number] #### [facility] ([facility]) [address] [place] [address] Neutrophils/100 WBC (Bld) 68.9 % Normal 40.0-72.0 [facility] Comment on above: Performed By: #### L [id number] #### [facility] ([facility]) [address] [place] [address] NRBC (PER 100 WBCS) BY AUTOMATED COUNT 0.0 % Normal 0 [facility] Comment on above: Performed By: #### L [id number] #### [facility] LAB (BEAKER) [address] [place] [address] PLATELETS (10*3/UL) IN BLOOD AUTOMATED COUNT 437 10*3/uL High 150-400 [facility] Comment on above: Performed By: #### L [id number] #### [facility] ([facility]) [address] [place] [address] RBC (Bld) [#/Vol] 4.20 10*6/uL Normal 3.80-5.00 [facility] Comment on above: Performed By: #### L [id number] #### [facility] ([facility]) [address] [place] [address] WBC (Bld) [#/Vol] 6.51 10*3/uL Normal 4.00-10.60 [facility] Comment on above: Performed By: #### L [id number] #### [facility] ([facility]) [address] [place] [address] COMPREHENSIVE METABOLIC PANE Nacho 01-28-2024 Albumin [Mass/Vol] 3.4 g/dL Low 3.5-5.7 [facility] Comment on above: Performed By: #### L [id number] #### [facility] ([facility]) [address] [place] [address] ALP [Catalytic activity/Vol] 109 U/L High 34-104 [facility] Comment on above: Performed By: #### L [id number] #### [facility] ([facility]) [address] [place] [address] ALT [Catalytic activity/Vol] 11 U/L Normal 7-52 [facility] Comment on above: Performed By: #### L [id number] #### [facility] ([facility]) [address] [place] [address] Anion gap [Moles/Vol] 11 mmol/L Normal 7-20 [facility] Comment on above: Performed By: #### L [id number] #### [facility] ([facility]) [address] [place] [address] AST [Catalytic activity/Vol] 12 U/L Low 13-39 [facility] Comment on above: Performed By: #### L [id number] #### [facility] ([facility]) [address] [place] [address] Bilirubin [Mass/Vol] 0.5 mg/dL Normal 0.3-1.0 [facility] Comment on above: Performed By: #### L [id number] #### [facility] ([facility]) [address] [place] [address] Calcium [Mass/Vol] 8.5 mg/dL Low 8.6-10.3 [facility] Comment on above: Performed By: #### L [id number] #### [facility] ([facility]) [address] [place] [address] Chloride [Moles/Vol] 105 mmol/L Normal 98-107 [facility] Comment on above: Performed By: #### L [id number] #### [facility] ([facility]) [address] [place] [address] CO2 [Moles/Vol] 27 mmol/L Normal 21-31 [facility] Comment on above: Performed By: #### L [id number] #### [facility] ([facility]) [address] [place] [address] Creatinine [Mass/Vol] 0.59 mg/dL Low 0.60-1.20 [facility] Comment on above: Performed By: #### L [id number] #### [facility] ([facility]) [address] [place] [address] GLOMERULAR FILTRATION RATE ML/MIN/1.73 SQ M.PREDICTED 96.3 mL/min/1.73m*2 Normal >60.0 [facility] Comment on above: Result Comment: The [facility]???s estimated glomerular filtration rate (eGFR) will no [...] group of individuals. Performed By: #### L [id number] #### [facility] ([facility]) [address] [place] [address] Glucose [Mass/Vol] 84 mg/dL Normal 70-100 [facility] Comment on above: Performed By: #### L [id number] #### [facility] ([facility]) [address] [place] [address] Potassium [Moles/Vol] 3.5 mmol/L Normal 3.5-5.1 [facility] Comment on above: Performed By: #### L [id number] #### [facility] ([facility]) [address] [place] [address] Protein [Mass/Vol] 6.3 g/dL Normal 6.0-8.3 [facility] Comment on above: Performed By: #### L [id number] #### [facility] ([facility]) [address] [place] [address] Sodium [Moles/Vol] 139 mmol/L Normal 136-145 [facility] Comment on above: Performed By: #### L [id number] #### [facility] ([facility]) [address] [place] [address] Urea nitrogen [Mass/Vol] 6 mg/dL Low 7-25 [facility] Comment on above: Performed By: #### L [id number] #### [facility] ([facility]) [address] [place] [address] UREA NITROGEN/CREATININE (MASS RATIO) IN SER/PLAS 10.2 Normal [facility] Comment on above: Performed By: #### L [id number] #### [facility] ([facility]) [address] [place] [address] CONSULTon 01-28-2024 CONSULT Reason For Consult Partial [...] She has been sent from [facility] where she was admitted on January 26 [...] discharge. N (more content not included)... Normal [facility] CT ABDOMEN PELVIS W IV CONTR Kermit [...] Francisco Cosby. Not Vldtd Invalid Interpretation Code [facility] HPon 01-28-2024 Reason For Consult Partial bowel [...] She has been sent from [facility] where she was admitted on January 26 [...] discharge. N (more content not included)... Normal [facility] LACTIC ACID, PLASMAon 2023 LACTATE (MMOL/L) IN SER/PLAS 0.8 mmol/L Normal 0.5-2.2 [facility] Comment on above: Performed By: #### L [id number] #### [facility] (BEAKER) [address] [place] [address] LIPASEon 01-28-2024 LIPASE (U/L) IN SER/PLAS 7 U/L Low 11-82 [facility] Comment on above: Performed By: #### L [id number] #### [facility] ([facility]) [address] [place] [address] PROTIME-INRon 01-28-2024 INR IN PPP BY COAGULATION ASSAY 1.21 High 0.90-1.10 [facility] Comment on above: Result Comment: ACCC P [...] CHEST 1995;108:[id number]-246S. Performed By: #### L [id number] ####[facility] ([facility])[address] [place] [address] PROTHROMBIN TIME (PT) IN PPP BY COAGULATION ASSAY 15.3 Seconds High 12.3-14.8 [facility] Comment on above: Performed By: #### L [id number] ####[facility] ([facility])[address] [place] [address] TROPONIN Ion 01-28-2024 Troponin I.cardiac [Mass/Vol] 0.01 ng/mL Normal 0.00-0.04 [facility] Comment on above: Performed By: #### L [id number] ####[facility] ([facility])[address] [place] [address] Ambulatory Visit Summaryon 0 01-21-2024 Ambulatory Visit [...] for choosing us for your care. [facility] Ambulatory Visit Summary Ambulatory Visit Summary [...] for choosing us for your care. Normal [facility] Office Visiton 12-24-2023 Follow-up visit [id number] Angie Watt Gómez 1950 F Date Provider Department Center 12/24/2023 RIZWANA MURILLO [facility] Family History Problem Relation Age of Onset Heart attack Father Atrial fibrillation Father Atrial fibrillation Sister Family Status - Relation Status Age at Father Sister Level of Service:91291 [place] OFFICE/OUTPATIENT ESTABLISHED MOD MDM 30 MIN Normal [facility] Physician Referralon 024 Physician Referral [phone] 03 [id number]#1.00 TIFF Normal [facility] BASIC METABOLIC PANELon Anion gap [Moles/Vol] 12 mmol/L Normal 7- [facility] Comment on above: Performed By: #### L [id number] #### [facility] ([facility]) [address] [place] [address] Calcium [Mass/Vol] 8.5 mg/dL Low 8.6-10.3 [facility] Comment on above: Performed By: #### L [id number] #### [facility] ([facility]) [address] [place] [address] Chloride [Moles/Vol] 101 mmol/L Normal 98-107 [facility] Comment on above: Performed By: #### L [id number] #### [facility] ([facility]) [address] [place] [address] CO2 [Moles/Vol] 26 mmol/L Normal 21-31 [facility] Comment on above: Performed By: #### L [id number] #### [facility] ([facility]) [address] [place] [address] Creatinine [Mass/Vol] 0.78 mg/dL Normal 0.60-1.20 [facility] Comment on above: Performed By: #### L [id number] #### [facility] ([facility]) [address] [place] [address] GLOMERULAR FILTRATION RATE ML/MIN/1.73 SQ M.PREDICTED 81.2 mL/min/1.73m*2 Normal >60.0 [facility] Comment on above: Result Comment: The [facility]???s estimated glomerular filtration rate (eGFR) will no [...] group of individuals. Performed By: #### L [id number] #### [facility] ([facility]) [address] [place] [address] Glucose [Mass/Vol] 91 mg/dL Normal 70-100 [facility] Comment on above: Performed By: #### L [id number] #### [facility] ([facility]) [address] [place] [address] Potassium [Moles/Vol] 3.9 mmol/L Normal 3.5-5.1 [facility] [facility] Comment on above: Performed By: #### L [id number] #### [facility] ([facility]) [address] [place] [address] Sodium [Moles/Vol] 135 mmol/L Low 136-145 [facility] Comment on above: Performed By: #### L [id number] #### [facility] ([facility]) [address] [place] [address] Urea nitrogen [Mass/Vol] 8 mg/dL Normal 7-25 [facility] Comment on above: Performed By: #### L [id number] #### [facility] ([facility]) [address] [place] [address] UREA NITROGEN/CREATININE (MASS RATIO) IN SER/PLAS 10.3 Normal [facility] Comment on above: Performed By: #### L [id number] #### [facility] ([facility]) [address] [place] [address] CBCon 11-22-2023 Erythrocyte distribution width (RBC) [Ratio] 15.9 % High 11.5-15.0 [facility] Comment on above: Performed By: #### L [id number] #### [facility] ([facility]) [address] [place] [address] ERYTHROCYTE MEAN CORPUSCULAR HEMOGLOBIN CONCENTRATION (G/DL) BY AUTOMATED 31.3 g/dL Low 32.0-35.0 [facility] Comment on above: Performed By: #### L [id number] #### [facility] ([facility]) [address] [place] [address] Hematocrit (Bld) [Volume fraction] 35.2 % Low 36.0-48.0 [facility] Comment on above: Performed By: #### L [id number] #### [facility] ([facility]) [address] [place] [address] Hemoglobin (Bld) [Mass/Vol] 11.0 g/dL Low 12.0-15.0 [facility] Comment on above: Performed By: #### L [id number] #### [facility] ([facility]) [address] [place] [address] MCH (RBC) [Entitic mass] 27.5 pg Normal 27.0-33.0 [facility] Comment on above: Performed By: #### L [id number] #### [facility] ([facility]) [address] [place] [address] MCV (RBC) [Entitic vol] 88.0 fL Normal 82.0-98.0 [facility] Comment on above: Performed By: #### L [id number] #### [facility] ([facility]) [address] [place] [address] PLATELETS (10*3/UL) IN BLOOD AUTOMATED COUNT 341 10*3/uL Normal 150-400 [facility] Comment on above: Performed By: #### L [id number] #### [facility] ([facility]) [address] [place] [address] RBC (Bld) [#/Vol] 4.00 10*6/uL Normal 3.80-5.00 [facility] Comment on above: Performed By: #### L [id number] #### [facility] ([facility]) [address] [place] [address] WBC (Bld) [#/Vol] 7.75 10*3/uL Normal 4.00-10.60 [facility] Comment on above: Performed By: #### L [id number] #### [facility] ([facility]) [address] [place] [address] DSon 11-22-2023 DS Admission Admitted 11/20/2023 for [...] medications were sent to [facility] - [place], [place] - [address] [facility] [place] [address] [address] [facility] [place] [address], [facility] [address] acetaminophen 500 mg tablet Activity Normal activity [...] history of a cholecystectomy who presents to [facility] as a direct transfer from [facility] with diverticulitis. Pt had been having on [...] hgb 11.5, otherwise wnl. Upon arrival to [facility], pt was started on a [...] appointments. Test Results Pending At Discharge Normal [facility] 30on 11-21-2023 30 Daily Case Managemen t Update Multidisciplinary rounds have been completed. Barriers to Discharge: Management of diverticulitis; on full liquid diet and IV fluids. Plan to discharge home when medically ready. Diet: Dietary Orders (From admission, onward) Start Ordered 11/21/23 1208 Full Liquid Diet Diet effective now Question: Room Service? Answer: No 11/21/23 1207 11/20/23 1632 Dietary nutrition supplements Lunch; Liquacel; Cambria; 2 packets; Oral Until discontinued Question Answer Comment Deliver with Lunch Select supplement: Liquacel flavor Cambria Strength: 2 packets Route Oral 11/20/23 1631 11/20/23 1631 Dietary nutrition supplements TID; Resource Breeze; 8 oz; Oral Until discontinued Question Answer Comment Deliver with TID Select supplement: Resource Breeze Strength: 8 oz Route Oral 11/20/23 1631 Physician Expected Discharge Date: 11/23/2023 Discharge Delays: PT Six Click Score: 17 OT Six Click Score: PT Recommendations: OT Recommendations: New Consults: Normal [facility] BASIC METABOLIC PANELon 06-0 Anion gap [Moles/Vol] 11 mmol/L Normal 7-20 [facility] Comment on above: Performed By: #### L [id number] #### [facility] [address] [place] [address] Calcium [Mass/Vol] 8.6 mg/dL Normal 8.6-10.3 [facility] Comment on above: Performed By: #### L [id number] #### [facility] [address] [place] [address] Chloride [Moles/Vol] 102 mmol/L Normal 98-107 [facility] Comment on above: Performed By: #### L [id number] #### [facility] ([facility]) [address] [place] [address] CO2 [Moles/Vol] 26 mmol/L Normal 21-31 [facility] Comment on above: Performed By: #### L [id number] #### [facility] [address] [place] [address] Creatinine [Mass/Vol] 0.75 mg/dL Normal 0.60-1.20 [facility] Comment on above: Performed By: #### L [id number] #### [facility] [address] [place] [address] GLOMERULAR FILTRATION RATE ML/MIN/1.73 SQ M.PREDICTED 85.1 mL/min/1.73m*2 Normal >60.0 [facility] Comment on above: Result Comment: The [facility]???s estimated glomerular filtration rate (eGFR) will no [...] individuals. Performed By: #### L [id number] #### [facility] ([facility]) [address] [place] [address] Glucose [Mass/Vol] 93 mg/dL Normal 70-100 [facility] Comment on above: Performed By: #### L [id number] #### [facility] ([facility]) [address] [place] [address] Potassium [Moles/Vol] 3.9 mmol/L Normal 3.5-5.1 [facility] Comment on above: Performed By: #### L [id number] #### [facility] ([facility]) [address] [place] [address] Sodium [Moles/Vol] 135 mmol/L Low 136-145 [facility] Comment on above: Performed By: #### L [id number] #### [facility] ([facility]) [address] [place] [address] Urea nitrogen [Mass/Vol] 8 mg/dL Normal 7-25 [facility] Comment on above: Performed By: #### L [id number] #### [facility] ([facility]) [address] [place] [address] UREA NITROGEN/CREATININE (MASS RATIO) IN SER/PLAS 10.7 Normal [facility] Comment on above: Performed By: #### L [id number] #### [facility] ([facility]) [address] [place] [address] CBCon 11-21-2023 Erythrocyte distribution width (RBC) [Ratio] 15.6 % High 11.5-15.0 [facility] Comment on above: Performed By: #### L [id number] #### [facility] ([facility]) [address] [place] [address] ERYTHROCYTE MEAN CORPUSCULAR HEMOGLOBIN CONCENTRATION (G/DL) BY AUTOMATED 31.7 g/dL Low 32.0-35.0 [facility] Comment on above: Performed By: #### L [id number] #### [facility] [address] [place] [address] Hematocrit (Bld) [Volume fraction] 34.7 % Low 36.0-48.0 [facility] Comment on above: Performed By: #### L [id number] #### [facility] ([facility]) [address] [place] [address] Hemoglobin (Bld) [Mass/Vol] 11.0 g/dL Low 12.0-15.0 [facility] Comment on above: Performed By: #### L [id number] #### [facility] ([facility]) [address] [place] [address] MCH (RBC) [Entitic mass] 27.4 pg Normal 27.0-33.0 [facility] Comment on above: Performed By: #### L [id number] #### [facility] ([facility]) [address] [place] [address] MCV (RBC) [Entitic vol] 86.5 fL Normal 82.0-98.0 [facility] Comment on above: Performed By: #### L [id number] #### [facility] ([facility]) [address] [place] [address] PLATELETS (10*3/UL) IN BLOOD AUTOMATED COUNT 349 10*3/uL Normal 150-400 [facility] Comment on above: Performed By: #### L [id number] #### [facility] ([facility]) [address] [place] [address] RBC (Bld) [#/Vol] 4.01 10*6/uL Normal 3.80-5.00 [facility] Comment on above: Performed By: #### L [id number] #### [facility] ([facility]) [address] [place] [address] WBC (Bld) [#/Vol] 7.22 10*3/uL Normal 4.00-10.60 [facility] Comment on above: Performed By: #### L [id number] #### [facility] ([facility]) [address] [place] [address] 30on 11-20-2023 30 Problem: Pain Goal: LTG-Verbalize [...] to address these barriers include . Normal [facility] 30 The patient is Moderately Stable - [...] fall risk status, and pain status Normal [facility] CBCon 11-20-2023 Erythrocyte distribution width (RBC) [Ratio] 15.8 % High 11.5-15.0 [facility] Comment on above: Performed By: #### L [id number] #### [facility] ([facility]) [address] [facility] [place] [address] ERYTHROCYTE MEAN CORPUSCULAR HEMOGLOBIN CONCENTRATION (G/DL) BY AUTOMATED 31.9 g/dL Low 32.0-35.0 [facility] Comment on above: Performed By: #### L [id number] #### [facility] [address] [place] [address] Hematocrit (Bld) [Volume fraction] 36.1 % Normal 36.0-48.0 [facility] Comment on above: Performed By: #### L [id number] #### [facility] [address] [place] [address] Hemoglobin (Bld) [Mass/Vol] 11.5 g/dL Low 12.0-15.0 [facility] Comment on above: Performed By: #### L [id number] #### [facility] [address] [place] [address] MCH (RBC) [Entitic mass] 27.4 pg Normal 27.0-33.0 [facility] Comment on above: Performed By: #### L [id number] #### [facility] [address] [place] [address] MCV (RBC) [Entitic vol] 86.2 fL Normal 82.0-98.0 [facility] Comment on above: Performed By: #### L [id number] #### [facility] ([facility]) [address] [place] [address] PLATELETS (10*3/UL) IN BLOOD AUTOMATED COUNT 388 10*3/uL Normal 150-400 [facility] Comment on above: Performed By: #### L [id number] #### [facility] [address] [place] [address] RBC (Bld) [#/Vol] 4.19 10*6/uL Normal 3.80-5.00 [facility] Comment on above: Performed By: #### L [id number] #### [facility] ([facility]) [address] [place] [address] WBC (Bld) [#/Vol] 9.02 10*3/uL Normal 4.00-10.60 [facility] Comment on above: Performed By: #### L [id number] #### [facility] ([facility]) [address] [place] [address] COMPREHENSIVE METABOLIC PANE Nacho 11-20-2023 Albumin [Mass/Vol] 3.8 g/dL Normal 3.5-5.7 [facility] Comment on above: Performed By: #### L [id number] #### [facility] ([facility]) [address] [place] [address] ALP [Catalytic activity/Vol] 118 U/L High 34-104 [facility] Comment on above: Performed By: #### L [id number] #### [facility] ([facility]) [address] [place] [address] ALT [Catalytic activity/Vol] 19 U/L Normal 7-52 [facility] Comment on above: Performed By: #### L [id number] #### [facility] ([facility]) [address] [place] [address] Anion gap [Moles/Vol] 9 mmol/L Normal 7-20 [facility] Comment on above: Performed By: #### L [id number] #### [facility] ([facility]) [address] [place] [address] AST [Catalytic activity/Vol] 28 U/L Normal 13-39 [facility] Comment on above: Performed By: #### L [id number] #### [facility] ([facility]) [address] [place] [address] Bilirubin [Mass/Vol] 0.6 mg/dL Normal 0.3-1.0 [facility] Comment on above: Performed By: #### L [id number] #### [facility] ([facility]) [address] [place] [address] Calcium [Mass/Vol] 8.9 mg/dL Normal 8.6-10.3 [facility] Comment on above: Performed By: #### L [id number] #### [facility] [address] [place] [address] Chloride [Moles/Vol] 101 mmol/L Normal 98-107 [facility] Comment on above: Performed By: #### L [id number] #### [facility] [address] [place] [address] CO2 [Moles/Vol] 29 mmol/L Normal 21-31 [facility] Comment on above: Performed By: #### L [id number] #### [facility] ([facility]) [address] [place] [address] Creatinine [Mass/Vol] 0.75 mg/dL Normal 0.60-1.20 [facility] Comment on above: Performed By: #### L [id number] #### [facility] ([facility]) [address] [place] [address] GLOMERULAR FILTRATION RATE ML/MIN/1.73 SQ M.PREDICTED 85.1 mL/min/1.73m*2 Normal >60.0 [facility] Comment on above: Result Comment: The [facility]???s estimated glomerular filtration rate (eGFR) will no [...] group of individuals. Performed By: #### L [id number] #### [facility] [address] [place] [address] Glucose [Mass/Vol] 116 mg/dL High 70-100 [facility] Comment on above: Performed By: #### L [id number] #### [facility] [address] [place] [address] Potassium [Moles/Vol] 4.2 mmol/L Normal 3.5-5.1 [facility] Comment on above: Performed By: #### L [id number] #### [facility] ([facility]) [address] [place] [address] Protein [Mass/Vol] 7.0 g/dL Normal 6.0-8.3 [facility] Comment on above: Performed By: #### L [id number] #### [facility] ([facility]) [address] [place] [address] Sodium [Moles/Vol] 135 mmol/L Low 136-145 [facility] Comment on above: Performed By: #### L [id number] #### [facility] ([facility]) [address] [place] [address] Urea nitrogen [Mass/Vol] 12 mg/dL Normal 7-25 [facility] Comment on above: Performed By: #### L [id number] #### [facility] ([facility]) [address] [place] [address] UREA NITROGEN/CREATININE (MASS RATIO) IN SER/PLAS 16.0 Normal [facility] Comment on above: Performed By: #### L [id number] #### [facility] ([facility]) [address] [place] [address] CONSULTon 11-20-2023 CONSULT Clinical Nutrition Assessment: Name: Angie Watt Room: [address] [place] [address] Date: 1950 Date of Visit: 11/20/23 Admission [...] Last BM 11/18; c/o N/V/D 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 CT [...] (11/20/2023). 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, although reported that she has been [...] ideal body weight (59.1 kg) Calorie needs: 4989-4141 kcals/day based on Equation: 25-30 kcal/kg Protein [...] Hand Grasp: Moderate L Hand Grasp: Moderate (Weight And Test Bar Clerk strength not assessed by RD) Patient at risk for malnutrition according to hospital criteria, but does not meet the clinical characteristics per the Academy of Nutrition and Dietetics, and the [place] Society of Enteral and Parenteral Nutrition to [...] (magnesium, phosphorus, BMP) Contact the dietitian via [employer] chat 8A-4P Saturday through Saturday or call extension [phone]. For weekends & holidays, the dietitian can be reached via pager [phone] from 9A-3P. Unable to respond to [employer] chat messages on Saturday & . Normal [facility] HPon 11-20-2023 HP -- Attestation signed by Saida Lai MD at 11/21/2023 8:37 AM Attending Physician Statement I have discussed the case, including pertinent history and exam findings with Dr. Tanner, surgical instruments inspector and have personally seen the patient. I agree with the assessment, plan and orders as documented. [phone] pager [phone] phone [facility] General Surgery HISTORY & PHYSICAL Reason for Admission: diverticulitis History of Present Illness: Angie Watt is a 73 y.o. female with PMH of atrial fibrillation s/p ablation on amiodarone and eliquis, HTN, hypothyroidism, and sleep apnea and past surgical history of a cholecystectomy who presents to [facility] as a direct transfer from [facility] with diverticulitis. Pt had been having on [...] Atrial fib (more content not included)... Normal [facility] LACTIC ACID, PLASMAon 2023 LACTATE (MMOL/L) IN SER/PLAS 1.2 mmol/L Normal 0.5-2.2 [facility] Comment on above: Performed By: #### L [id number] #### [facility] ([facility]) [address] [place] [address] NURSNOTEon 11-20-2023 NURSNOTE Bedside reporting done, per China RN and Maia RN No complaints at this time [facility] NURSNOTE Pt sits up at side o f bed, no c/o of pain, or SOB at this time Telemetry cont. On pt IV intact, no redness noted Pulse ox--98% on room air Pt. Up walking around in room for 10 min at 1830 pm [facility] NURSNOTE Pt up walking around in room, tolerates well , with walker. [facility] ULISESNOTTerry Lai notified th at we need admission orders. Notified via secure [employer] chat. [facility] NURSNOTE Pt arrived as a dire ct admission from [facility], no c/o of pain or SOB at this time Assessment completed Telemetry started on pt. Bed alarm on [facility] PHOSPHORUSon 11-20-2023 Magnesium [Mass/Vol] 2.5 mg/dL Normal 1.9-2.7 [facility] Comment on above: Performed By: #### L [id number] #### [facility] ([facility]) [address] [place] [address] Performed By: #### L [id number] #### [facility] ([facility]) [address] [place] [address] PROTIME-INRon 11-20-2023 INR IN PPP BY COAGULATION ASSAY 1.27 High 0.90-1.10 [facility] Comment on above: Result Comment: ACCC P [...] 1995;[id number]. Performed By: #### L [id number] #### [facility] ([facility]) [address] [place] [address] PROTHROMBIN TIME (PT) IN PPP BY COAGULATION ASSAY 15.8 Seconds High 12.3-14.8 [facility] Comment on above: Performed By: #### L [id number] #### [facility] ([facility]) [address] [place] [address] 36on 08-01-2023 36 Regarding echo performed on 06/27/2023: Echo is stable per Lissa Spencer CNP. I called patient and made her aware. She asked about her lab work. I told her we didn't have a copy of it in her chart. Labs were then obtained from [facility] portal and uploaded into her intermediate card tender for Lissa's review. I told her I'd call her back if he didn't like the results. She thanked me and verbalized understanding. [facility] Orders Onlyon 06-25-2023 Orders Only [id number] Angie Watt 1950 F Date Provider Department Center 06/25/2023 Radha8DELFINA NELSON Family History Problem Relation Age of Onset Heart attack Father Atrial fibrillation Father Atrial fibrillation Sister Family Status - Relation Status Age at Father Sister [facility] Office Visiton 06-18-2023 Follow-up visit [id number] Angie Watt 1950 F Date Provider Department Center 06/18/2023 1596-LISSA SPENCER Family History Problem Relation Age of Onset Heart attack Father Atrial fibrillation Father Atrial fibrillation Sister Family Status - Relation Status Age at Father Sister Level of Service:11447 [place] OFFICE/OUTPATIENT ESTABLISHED MOD MDM 30 MIN Normal [facility] Orders Onlyon 02-20-2023 Orders Only [id number] Angie Watt 1950 F Date Provider Department Center 02/20/2023 VALENTE LYNN [facility] Family History Problem Relation Age of Onset Heart attack Father Atrial fibrillation Father Atrial fibrillation Sister Family Status - Relation Status Age at Father Sister Normal [facility] Covid-19 PCR (CVDTB)on 02-16 SARS-CoV-2 (COVID-19) RNA SP+probe Ql (Unsp spec) Not detected Normal NOT DETECTED [facility] Comment on above: Result Comment: When diagnostic [...] for this test is supported by the Superintendent Power of Health and Human Service's declaration that [...] By: #### C VDTB #### [facility] [address] [address] [address] Maik Singleton BASIC METABOLIC PANELon 07-19 Calcium [Mass/Vol] 8.1 mg/dL Low 8.6-10.3 [facility] Comment on above: Order Comment: No: D o not add to previous draw Performed By: #### 1 0070, [id number] #### [facility] [address] [facility] [address], [facility] Chloride [Moles/Vol] 99 mmol/L Normal 98-107 [facility] Comment on above: Order Comment: No: D o not add to previous draw Performed By: #### 1 69, 14513 #### [facility] [address] [place] [address], [place] CO2 [Moles/Vol] 27 mmol/L Normal 21-31 [facility] Comment on above: Order Comment: No: D o not add to previous draw Performed By: #### 1 69, 83052 #### [facility] [address] [place] [address], [place] Creatinine [Mass/Vol] 0.82 mg/dL Normal 0.60-1.20 [facility] Comment on above: Order Comment: No: D o not add to previous draw Performed By: #### 1 69, 93054 #### [facility] [address] [place] [address], [place] GFR/1.73 sq M.predicted among blacks MDRD (S/P/Bld) [Vol rate/Area] mL/min/{1.73_m2} Normal >60 [facility] Comment on above: Order Comment: No: D o not add to previous draw Performed By: #### 1 69, 30304 #### [facility] [address] [place] [address], [place] GFR/1.73 sq M.predicted among non-blacks MDRD (S/P/Bld) [Vol rate/Area] mL/min/{1.73_m2} Normal >60 [facility] Comment on above: Order Comment: No: D o not add to previous draw Performed By: #### 1 69, 88775 #### [facility] [address] [place] [address], [place] Glucose [Mass/Vol] 109 mg/dL High 70-100 [facility] Comment on above: Order Comment: No: D o not add to previous draw Performed By: #### 1 69, 28511 #### [facility] [address] [place] [address], [place] Potassium [Moles/Vol] 4.0 mmol/L Normal 3.5-5.1 [facility] Comment on above: Order Comment: No: D o not add to previous draw Performed By: #### 1 69, 20551 #### [facility] [address] [place] [id number], [facility] Sodium [Moles/Vol] 134 mmol/L Low 136-145 [facility] Comment on above: Order Comment: No: D o not add to previous draw Performed By: #### 1 69, 93975 #### [facility] [address] [place] [address], [facility] Urea nitrogen [Mass/Vol] 12 mg/dL Normal 7-25 [facility] Comment on above: Order Comment: No: D o not add to previous draw Performed By: #### 1 69, 78960 #### [facility] [address] CBC COMPLETE BLOOD COUNTon 0 - Erythrocyte distribution width (RBC) [Ratio] 15.5 % High 11.5-15.0 [facility] Comment on above: Order Comment: No: D o not add to previous draw Performed By: #### 5 0608 #### [facility] [address] [place] [address], [facility] Hematocrit (Bld) [Volume fraction] 36.9 % Normal 36.0-45.0 [facility] Comment on above: Order Comment: No: D o not add to previous draw Performed By: #### 5 0608 #### [facility] [address] [place] [id number], [facility] Hemoglobin (Bld) [Mass/Vol] 11.5 g/dL Low 12.0-15.0 [facility] Comment on above: Order Comment: No: D o not add to previous draw Performed By: #### 5 0608 #### [facility] [address] [place] [address], [facility] MCH (RBC) [Entitic mass] 27.1 pg Normal 27.0-33.0 [facility] Comment on above: Order Comment: No: D o not add to previous draw Performed By: #### 5 0608 #### [facility] [address] [place] [id number], [facility] MCHC (RBC) [Mass/Vol] 31.2 g/dL Low 32.0-35.0 [facility] Comment on above: Order Comment: No: D o not add to previous draw Performed By: #### 5 0608 #### [facility] [address] [address], [facility] MCV (RBC) [Entitic vol] 87.0 fL Normal 82.0-98.0 [facility] Comment on above: Order Comment: No: D o not add to previous draw Performed By: #### 5 0608 #### [facility] [address] [facility] [address], [facility] Nucleated RBC/100 WBC (Bld) [Ratio] 0 % Normal 0-0 [facility] Comment on above: Order Comment: No: D o not add to previous draw Performed By: #### 5 0608 #### [facility] [address] [place] [id number], [facility] PLAT CNT 258 10*3/uL Normal 150-400 [facility] Comment on above: Order Comment: No: D o not add to previous draw Performed By: #### 5 0608 #### [facility] [address] [facility]. [place] [id number], [facility] RBC (Bld) [#/Vol] 4.24 10*6/uL Normal 3.80-5.00 [facility] Comment on above: Order Comment: No: D o not add to previous draw Performed By: #### 5 0608 #### [facility] [address] [place] [address], [facility] WBC (Bld) [#/Vol] 10.20 10*3/uL Normal 4.00-10.60 [facility] Comment on above: Order Comment: No: D o not add to previous draw Performed By: #### 5 0608 #### [facility] [address] [facility]. [address] MAGNESIUM BLOODon 08-10-2021 Magnesium [Mass/Vol] 2.2 mg/dL Normal 1.9-2.7 [facility] Comment on above: Order Comment: No: D o not add to previous draw Performed By: #### 1 0070, 50406 #### [facility] [address] APTTon 08-09-2021 aPTT Coag (Bld) [Time] 26.9 s Normal 25.0-35.0 [facility] Comment on above: Result Comment: ALL RESULTS [...] THIS PURPOSE. Performed By: #### 5 6101, 39567 #### [facility] [address] [facility] [address], [facility] CBC W/DIFFon 08-09-2021 ABS IMM GRANS 0.0 10*3/uL Normal 0.0-0.2 [facility] Comment on above: Performed By: #### 5 0103 #### [facility] [address] [facility] [address], [facility] ABS NEUTROPHILS 5.1 10*3/uL Normal 1.6-7.6 [facility] Comment on above: Performed By: #### 5 0103 #### [facility] [address] [facility] [address], [facility] Basophils (Bld) [#/Vol] 0.0 10*3/uL Normal 0.0-0.2 [facility] Comment on above: Performed By: #### 5 0103 #### [facility] [address] [place] [address], [facility] Basophils/100 WBC (Bld) 0.4 % Normal 0.0-1.0 [facility] Comment on above: Performed By: #### 5 0103 #### [facility] [address] [facility] [address], [facility] Eosinophils (Bld) [#/Vol] 0.2 10*3/uL Normal 0.0-0.5 [facility] Comment on above: Performed By: #### 5 0103 #### [facility] [address] [place] [address], [facility] Eosinophils/100 WBC (Bld) 2.3 % Normal 0.0-6.0 [facility] Comment on above: Performed By: #### 5 0103 #### [facility] [address] [facility] [address], [facility] Erythrocyte distribution width (RBC) [Ratio] 15.3 % High 11.5-15.0 [facility] Comment on above: Performed By: #### 5 0103 #### [facility] [address] [facility] [place] [address], [facility] Hematocrit (Bld) [Volume fraction] 37.4 % Normal 36.0-45.0 [facility] Comment on above: Performed By: #### 5 0103 #### [facility] [address] [facility] [place] [address], [facility] Hemoglobin (Bld) [Mass/Vol] 11.5 g/dL Low 12.0-15.0 [facility] Comment on above: Performed By: #### 5 0103 #### [facility] [address] [place] [address], [facility] IMMATURE GRANS 0.3 % Normal 0.0-1.0 [facility] Comment on above: Performed By: #### 5 0103 #### [facility] [address] [facility] [address], [facility] Lymphocytes (Bld) [#/Vol] 1.1 10*3/uL Low 1.2-4.0 [facility] Comment on above: Performed By: #### 5 0103 #### [facility] [address] [facility] [address], [facility] Lymphocytes/100 WBC (Bld) 16.1 % Low 20.0-45.0 [facility] Comment on above: Performed By: #### 5 3 #### [facility] [address] MCH (RBC) [Entitic mass] 26.9 pg Low 27.0-33.0 [facility] Comment on above: Performed By: #### 5 3 #### [facility] [address] MCHC (RBC) [Mass/Vol] 30.7 g/dL Low 32.0-35.0 [facility] Comment on above: Performed By: #### 5 3 #### [facility] [address] [place] [address], [facility] MCV (RBC) [Entitic vol] 87.4 fL Normal 82.0-98.0 [facility] Comment on above: Performed By: #### 5 3 #### [facility] [address] [place] [address], [facility] Monocytes (Bld) [#/Vol] 0.6 10*3/uL Normal 0.1-1.0 [facility] Comment on above: Performed By: #### 5 102 #### [facility] [address] [place] [address], [facility] MONOS 8.8 % Normal 5.0-12.0 [facility] Comment on above: Performed By: #### 102 #### [facility] [address] [facility] [place] [address], [facility] Neutrophils/100 WBC (Bld) 72.1 % High 40.0-72.0 [facility] Comment on above: Performed By: #### 102 #### [facility] [address] [facility] [address], [facility] Nucleated RBC/100 WBC (Bld) [Ratio] 0 % Normal 0-0 [facility] Comment on above: Performed By: #### 102 #### [facility] [address] [facility] [address], [facility] PLAT CNT 271 10*3/uL Normal 150-400 [facility] Comment on above: Performed By: #### 102 #### [facility] [address] [facility] [address], [facility] RBC (Bld) [#/Vol] 4.28 10*6/uL Normal 3.80-5.00 [facility] Comment on above: Performed By: #### 102 #### [facility] [address] [facility] [address], [facility] WBC (Bld) [#/Vol] 7.02 10*3/uL Normal 4.00-10.60 [facility] Comment on above: Performed By: #### 102 #### [facility] [address] COMP METABOLIC PANELon 08-09 Albumin [Mass/Vol] 3.8 g/dL Normal 3.5-5.7 [facility] Comment on above: Performed By: #### 0 012 #### [facility] [address] [facility] [address], [facility] ALKALINE PHOSPH 140 IU/L High 34-104 [facility] Comment on above: Performed By: #### 0 0121 #### [facility] [address] [place] [address], [place] ALT [Catalytic activity/Vol] 13 U/L Normal 7-52 [facility] Comment on above: Performed By: #### 0 0121 #### [facility] [address] [place] [address], [place] AST [Catalytic activity/Vol] 17 U/L Normal 13-39 [facility] Comment on above: Performed By: #### 0 0121 #### [facility] [address] [place] [address], [place] Bilirubin [Mass/Vol] 0.5 mg/dL Normal 0.3-1.0 [facility] Comment on above: Performed By: #### 0 0121 #### [facility] [address] [place] [address], [place] Calcium [Mass/Vol] 8.7 mg/dL Normal 8.6-10.3 [facility] Comment on above: Performed By: #### 0 0121 #### [facility] [address] [place] [address], [place] Chloride [Moles/Vol] 104 mmol/L Normal 98-107 [facility] Comment on above: Performed By: #### 0 0121 #### [facility] [address] [place] [address], [place] CO2 [Moles/Vol] 28 mmol/L Normal 21-31 [facility] Comment on above: Performed By: #### 0 0121 #### [facility] [address] [place] [address], [place] Creatinine [Mass/Vol] 0.74 mg/dL Normal 0.60-1.20 [facility] Comment on above: Performed By: #### 0 0121 #### [facility] [address] [place] [address], [place] GFR/1.73 sq M.predicted among blacks MDRD (S/P/Bld) [Vol rate/Area] mL/min/{1.73_m2} Normal >60 [facility] Comment on above: Performed By: #### 0 0121 #### [facility] [address] [place] [address], [facility] GFR/1.73 sq M.predicted among non-blacks MDRD (S/P/Bld) [Vol rate/Area] mL/min/{1.73_m2} Normal >60 [facility] Comment on above: Performed By: #### 0 0121 #### [facility] [address] [place] [address], [facility] Glucose [Mass/Vol] 116 mg/dL High 70-100 [facility] Comment on above: Performed By: #### 0 0121 #### [facility] [address] [place] [address], [facility] Potassium [Moles/Vol] 3.9 mmol/L Normal 3.5-5.1 [facility] Comment on above: Performed By: #### 0 0121 #### [facility] [address] [place] [id number], [facility] Protein [Mass/Vol] 6.4 g/dL Normal 6.0-8.3 [facility] Comment on above: Performed By: #### 0 0121 #### [facility] [address] [place] [address], [facility] Sodium [Moles/Vol] 138 mmol/L Normal 136-145 [facility] Comment on above: Performed By: #### 0 0121 #### [facility] [address] [place] [address], [facility] Urea nitrogen [Mass/Vol] 10 mg/dL Normal 7-25 [facility] Comment on above: Performed By: #### 0 0121 #### [facility] [address] [place] [id number] Cardiovascular Lab Reporton 08-09-2021 Cardiovascular Lab Report [facility] Patient Name: Angie Watt [facility] MR #: [id number] Physician: Charli Pulido MD Department of Service Date: 08/09/2021 Medicine Birthdate: 1950 Division of Room #: [id number] 357171 Cardiology Adult Cardiovascular Services [facility] [address] [place] [id number] Cardiovascular Laboratory Report ATRIAL FIBRILLATION ABLATION PROCEDURE [...] in Afib. Esophagus was mapped using the DegreedUND 3D mapping software with quadripolar catheter and [...] perform (more content not included)... Normal [facility] POC GLUCOSE LABon 08-09-2021 Glucose [Mass/Vol] 107 mg/dL High 70-100 [facility] Comment on above: Performed By: #### 8 5499 #### [facility] [address] [place] [address], [facility] PROTHROMBIN TIMEon INR Coag (PPP) [Relative time] 1.01 {INR} Normal 0.91-1.16 [facility] Comment on above: Result Comment: ACCC P [...] CHEST 1995;[id number]. Performed By: #### 5 6101, 50084 #### [facility] [address] [place] [address], [facility] PT Coag (PPP) [Time] 13.3 s Normal 12.3-14.8 [facility] Comment on above: Result Comment: ALL RESULTS MUST BE INTERPRETED WITH RESPECT TO BLOOD DRAWING ARTIFACT OR DILUTION ERROR OF ANTICOAGULANT AT THE TIME OF SAMPLING. Performed By: #### 5 2571, 94754 #### [address] [address], [facility] CTA CHESTon 08-08-2021 CTA CHEST [facility] Department of Radiology [address] [place] [id number] ======== Patient Name: ANGIE WATT : 1950 Sex: F Age: Race: White Pt. Location: Patient Status: O Ordered Date: 07/27/2021 1:35:00 PM Completed Date: 08/08/2021 12:58 PM Requesting Provider: CHARLI PULIDO Attending Provider: CHARLI PULIDO Report Copy To: KERRI SMITH Signs & Symptoms: I48.0 Paroxysmal atrial fibrillation I10 History: [place] patient will need labs need to schedule [...] examination. Electronically signed: Audrey Umana. Transcribed by: [email or web address], User Resident: Electronically Signed by: AUDREY UMANA @ 08/08/2021 03:05 PM Normal [facility] Comment on above: Order Comment: Gavin Ablation 08/09/21 Covid-19 PCR (CVDTB)on 05-18 SARS-CoV-2 (COVID-19) RNA SP+probe Ql (Unsp spec) Not detected Normal NOT DETECTED [facility] Comment on above: Result Comment: This test is not yet approved or cleared by the [place] FDA. When there are no FDA-approved or cleared tests available, and other criteria are met, FDA can make tests available under an emergency access mechanism called an Emergency Use Authorization (EUA). The EUA for this test is supported by the Superintendent Power of Health and Human Service's (HHS's) declaration [...] consistent with SARS-CoV-2. Performed By: #### [facility] #### [facility] [address] [place] [address] Dr. Maik Singleton Vital Signs Date Time Vital Sign Value Performing Clinician Gustabo burris 01-21-2024 14:18-0400 Blood Pressure Location IEV [facility] 01-21-2024 14:18-0400 Diastolic blood pressure 78 mm[Hg] Pasha [employer] [facility] 01-21-2024 14:18-0400 Heart rate 72 /min Pasha PETERL [facility] 01-21-2024 14:18-0400 Respiratory rate 16 /min Pasha PETERL [facility] 01-21-2024 14:18-0400 Systolic blood pressure 136 mm[Hg] Pasha BACH [facility] Encounters Encounter Date Encounter Type Care Provider Facility Start: 02-11-2024 ambulatory SAIDA LAI [facility] Start: 01-29-2024 [facility]: 01-29-2024 Evaluation and manag ement of inpatient IRMA SIMMONSLEY [facility] Start: 01-28-2024 End: 02-02-2024 Evaluation and management of inpatient KERRI SMITH [facility] Start: 01-21-2024 End: 01-21-2024 ambulatory Pasha BACH Facility:[facility] Start: 01-21-2024 End: 01-21-2024 Patient encounter procedure Pasha BACH [facility] Start: 12-24-2023 ambulatory RIZWANA CONNORS [facility] Start: 11-26-2023 ambulatory Pasha BACH Facility:[facility] Start: 11-21-2023 Evaluation and manag ement of inpatient [facility] Start: 11-20-2023 Evaluation and manag ement of inpatient ROHIT DELCID [facility] Start: 11-20-2023 End: 11-22-2023 Evaluation and management of inpatient EDUARDO WALKER [facility] Start: 06-18-2023 End: 06-18-2023 ambulatory LISSA [facility] Start: 03-07-2022 End: 03-07-[address] KERRI SMITH Facility: Start: 08-09-2021 End: 08-10-2021 ambulatory KERRI SMITH Facility:[facility] Start: 06-18-2021 Encounter for preprocedural laboratory examination CHARLI PULIDO [facility] Start: 06-14-2021 End: 06-14-[address] DOCTOR DIXON Facility:[facility] Start: 06-12-2021 End: 06-12-2021 ambulatory CHARLI PULIDO Facility:[facility] Start: 06-12-2021 End: 06-12-2021 Encounter for preprocedural laboratory examination CHARLI PULIDO Facility:[facility] Procedures Date Procedure Procedure Detail Performing Clinician Cardiac radiofrequen cy ablation using ultrasound guidance Pasha BACH Cholecystectomy Pasha BACH Immunizations Immunization Date Immunization Notes Care Provider Fa cili 04-11-2022 SARS-CoV-2 mRNA (jkqmijvzpum-hpiz-uqhec se) vaccine Pasha BACH [facility] Comment on above: Result Comment: 2023: [id number] 02-14-2022 SARS-CoV-2 mRNA (vgdtopgninm-owre-nprzc se) vaccine Pasha BACH [facility] Comment on above: Result Comment: 2023: [id number] Payers Date Payer Category Payer Medicare [id number] 1957 Private Health Insurance [id number] 1950 Unknown [id number] [id number] [id number] 1950 Unknown [id number] 2.16.84 [id number] 1950 Unknown [id number] 2.16.84 [id number] 1950 Unknown [id number] 2.16.84 [id number] 1950 Unknown [id number] 2.16.8 [id number] Social History Date Type Detail Facility Start: 01-21-2024 Tobacco smoking status Ex-smoker (fi nding) [facility] Tobacco smoking status Never [facility] Sex Assigned At Female [facility] Functional Status Date Assessment Result Facility 01-21-2024 Functional Status N/A [facility] Clinical Notes 06-14-2021 to 02-12-2024 Note Date & Type Note Facility 02-12-2024 Note RCRI=2 points Class III Risk 10.1 % 30-day risk of , [place], or cardiac arrest From a cardiac perspective [...] prevent any major fluid shifts. Rizwana Connors [facility] Cardiology Available 7a-5pm via [employer] Chat Pager [phone] [facility] 02-11-2024 Note Subjective Patient ID: Angie Watt [...] past 36 hour(s)). No follow-ups on file. [facility] 02-10-2024 Note General Surgery Offi ce/Clinic Note Chief Complaint consultation for diverticulitis HPI Staff 73 year old female presents on consultation from Dr. Smith for diverticulitis. Presented to [place] ED 11/19/23 with complaint of abdominal pain and nausea. CT ABD with sigmoid diverticulitis with concern for possible megacolon. Patient was transferred to [place] with symptomatic care provided during hospital stay. Never had colonoscopy in the past. On Eliquis for a.fib. Reports two additional episodes of abdominal pain, constipation and nausea since discharge from [place]. Both episodes she presented to [place] ED with CT's completed both times. History of Present Illness 73 yo female with h/o atrial fibrillation, on Eliquis, DMII, htn, hyperlipidemia, hypothyroidism, KYLEE, chronic diverticular disease, referred for recurrent diverticulitis with possible diverticular stricture verses colonic mass; patient has had problems since October; was in [place] ED 11/19/23 had abd/pelvic ct scan with evidence of sigmoid diverticulitis and dilated proximal colon; transferred to [facility]; reportedly treated with antibiotics and discharged; [...] BMI 40.0-44.9, ad (more content not included)... [facility] Comment on above: Result Comment: Elec [...] agree with the documentation [facility] General Surgery DAILY PROGRESS NOTE Subjective [...] L4-L5. Impression: *Circum (more content not included)... [facility] 02-02-2024 Note Hospital Medicine Discharge Summary Final [...] She has been sent from [facility] where she was admitted on January 26 [...] Admission: General Surgery Dear Dr. Nuzhat MD, [place] is advised to follow up with you [...] Espitia MD Hospit (more content not included)... [facility] 02-01-2024 Note Attestation signed by Clyde [facility] MD at 02/02/2024 8:21 AM GC: I saw this patient. I personally was physically present for the critical/king portions that determines the level of service. I was directly involved in the management and treatment plan of the patient. I reviewed resident Italo Stewart MD 's note and agree with the documentation [facility] General Surgery DAILY PROGRESS NOTE Subjective [...] up to 2. (more content not included)... [facility] 02-01-2024 Note Hospital Medicine Daily Progress Note - 02/01/2024 11:38 AM; Room: [address] [place] [address] Admission: 01/28/2024 6:04 PM; Length of stay: 4 days THE HOSPITALIST TEAM PREFERS TO USE [employer] CHAT FOR COMMUNICATION 7AM-7PM. IF I DO NOT RESPOND WITHIN 15 MINUTES, PLEASE PAGE ME/CALL THROUGH THE RIDE MECHANIC. FROM 7PM-7AM, PLEASE PAGE [phone](COVR) Code Status: Full Code Barriers to Discharge: [...] , FREET4 , CORTISOL , FEV1 , JWM9YIC , DLCO , RVSP , HDL , [...] a separate workstat (more content not included)... [facility] 01-31-2024 Note Patient: Angie Watt Procedure Summary Date: 01/31/24 Room / Location: [facility] OPERATING ROOM 01 / [facility] Operating Room Anesthesia Start: 162 Anesthesia Stop: [...] per anesthesia protocol. No notable events documented. [facility] 01-31-2024 Note Patient: Angie Watt Procedure Summary Date: 01/31/24 Room / Location: [facility] OPERATING ROOM 01 / [facility] Operating Room Anesthesia Start: 1628 Anesthesia Stop: Procedure: COLONOSCOPY Diagnosis: Stricture of colon (CMS/HCC) (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]) Surgeons: Saida Lai MD Responsible Provider: Reagan Ortiz MD Anesthesia Type: MAC ASA Status: 3 Anesthesia Post Transport Note Transport to: PACU O2 Route: room air Patient Monitor: direct observation Transport: uneventful Patient condition is: stable [facility] 01-31-2024 Note Patient: Angie Watt Procedure Information Date/Time: 01/31/24 1530 Procedure: COLONOSCOPY Location: [facility] OPERATING ROOM 01 / [facility] Operating Room Surgeons: Saida Lai MD Past [...] Plan discussed with CAA. Additional Equipment Requests [facility] 01-31-2024 Note 01/31/24 2956 Admission Assessment Questions Verify insurance with patient [...] activate MyChart? Yes (email link sent to: [email or web address]) Screen completed with patient & daughter [place] present at bedside. Await medical stability : ?weekend dc pending results of today's Scope, Colonoscopy today, Nyasia on hold. Dc Plan : return Home, no needs. Daughter will transport home; Agreeable to iMeds. [facility] 01-31-2024 Note Attestation signed by Saida Lai MD at 01/31/2024 7:02 PM Attending Physician Statement I have discussed the case, including pertinent history and exam findings with Dr. Caruso, surgical instruments inspector and have personally seen the patient. I agree with the assessment, plan and orders as documented. [phone] pager [phone] phone [facility] General Surgery DAILY PROGRESS NOTE Subjective [...] for malignancy. Colonosc (more content not included)... [facility] 01-31-2024 Note Hospital Medicine Daily Progress Note - 01/31/2024 8:21 AM; Room: [address] [place] [address] Admission: 01/28/2024 6:04 PM; Length of stay: 3 days THE HOSPITALIST TEAM PREFERS TO USE [employer]Week CHAT FOR COMMUNICATION 7AM-7PM. IF I DO NOT RESPOND WITHIN 15 MINUTES, PLEASE PAGE ME/CALL THROUGH THE RIDE MECHANIC. FROM 7PM-7AM, PLEASE PAGE [phone](COVR) Code Status: Full Code Barriers to Discharge: Colonoscopy today, Eliquis Held Expected Discharge Date: 1 day Discharge Destination: home Overview Patient is seen for evaluation and management of constipation with abdominal CT concerning for metastatic colon cancer. Subjective Ms. Angie Watt is a 73 year old female who was admitted from [facility] with a chief complaint of more than [...] oral, Daily beltran (more content not included)... [facility] 01-30-2024 Note Spiritual Care Note Patient name: Angie Watt Age: 73 y.o. Room: [address] [place] [address]- Angie has a good attitude but expressed [...] Hopeful;Frustrated Pastoral Intervention Emotional support Response Encouraged;Hopeful [facility] 01-30-2024 Note Hospital Medicine Daily Progress Note - 01/30/2024 9:02 AM; Room: [address] [place] [address] Admission: 01/28/2024 6:04 PM; Length of stay: 2 days THE HOSPITALIST TEAM PREFERS TO USE [employer]Week CHAT FOR COMMUNICATION 7AM-7PM. IF I DO NOT RESPOND WITHIN 15 MINUTES, PLEASE PAGE ME/CALL THROUGH THE RIDE MECHANIC. FROM 7PM-7AM, PLEASE PAGE [phone](COVR) Code Status: Full Code Barriers to Discharge: IV fluids, Need to restart OAC Expected Discharge Date: 1 day Discharge Destination: home Overview Patient is seen for evaluation and management of constipation with abdominal CT concerning for metastatic colon cancer. Subjective Ms. Angie Watt is a 73 year old female who was admitted from [facility] with a chief complaint of more than [...] will defer to (more content not included)... [facility] 01-30-2024 Note Attestation signed by Saida Lai MD at 01/31/2024 10:05 AM Attending Physician Statement I have discussed the case, including pertinent history and exam findings with Dr. Stewart, surgical instruments inspector and have personally seen the patient. I agree with the assessment, plan and orders as documented. See the full colonoscopy on January 31, 2024. [phone] pager [phone] phone [facility] General Surgery DAILY PROGRESS NOTE Subjective [...] *Segment 4 hep (more content not included)... [facility] 01-29-2024 Note Attestation signed by Saida Lai MD at 01/31/2024 10:04 AM Attending Physician Statement I have discussed the case, including pertinent history and exam findings with Dr. Stewart, surgical instruments inspector and have personally seen the patient. I agree with the assessment, plan and orders as documented. Proceed for colonoscopy on January 31, 2024. [phone] pager [phone] phone [facility] General Surgery DAILY PROGRESS NOTE Subjective [...] 3.6 cm. Fusiform (more content not included)... [facility] 01-29-2024 Note Hospital Medicine History and Physical 01/29/2024 1:08 AM THE HOSPITALIST TEAM PREFERS TO USE [employer] FOR COMMUNICATION 7AM-7PM. IF I DO NOT RESPOND WITHIN 15 MINUTES, PLEASE PAGE ME/CALL THROUGH THE RIDE MECHANIC. FROM 7PM-7AM, PLEASE PAGE [phone](COVR) Chief Complaint No chief complaint on file. History of Present Illness Angie Watt is an 73 y.o. female admitted from [facility] with chief complaint of diffuse abdominal discomfort bloating and nausea since more than a week pain generalized all over her belly nonradiating had constipation since past 4 to 5 days has been having persistent nausea worse with eating but no vomiting patient was seen in the ER at [facility] had workup done including CBC which showed [...] hospital who recommended patient be transferred to [facility]. At the time of examination [...] this hospital stay by a member of [facility]. Past Medical History Past Medical History: Diagnosis Date Abnormal ECG Arrhythmia Atrial fibrillation (CMS/HCC) Hypertension Hypothyroidism Paroxysmal atrial fibrillation (CMS/HCC) 05/15/2022 Sleep apnea P (more content not included)... [facility] 12-24-2023 Note Hypertension is unch anged. Continue current medications. Blood pressure will be reassessed at the next regular appointment Continue to monitor at home- goal is < 130/80. [facility] 12-24-2023 Note [facility] CARDIOLOGY PROGR ESS NOTE HPI: Angie Watt is a 73 y.o. female here for routine F/U HPI 73 y.o. year old with past medical history of A-fib s/p PVI as well as posterior box isolation 07/2021, hypertension, HFpEF, anxiety. B/P at home 130-135/ 70-80 No episodes of A fib/flutter since last visit- she monitor with [facility]. Denied chest pain, SOB, orthopnea, palpitations. Recently was admitted for acute diverticulitis at [facility]. Previous HPI per [place] SPENCER [...] Dorsalis pedis pulses (more content not included)... [facility] 12-24-2023 Note Patient here for 6 m [...] All other systems reviewed and are negative. [facility] 12-24-2023 Note [id number]= 3- age , Female, HTN Recent EKG sinus rhythm 11/20/23 - continues amiodarone 100mg daily, coreg and diltiazem -s/p PVI ([facility]) + Superior roof and Inferior line (posterior box isolation) + CTI 07/2021 -Continue yearly eye exams, and CXR/TSH/LFTs annually- pt refuses q 6months [facility] 11-22-2023 Note [facility] General Surgery DAILY PROGRESS NOTE Subjective [...] Casey Tanner MD PGY-1 General Surgery Resident [facility] 11-22-2023 Note Problem: Pain Goal: LTG-Verbalize decrease [...] and behaviors that affect risk of falls [place] fall precautions as indicated by assessment Educate [...] exacerbated and prevent overall improvement and discharge [facility] 11-21-2023 Note Attestation signed by Saida Lai MD at 11/23/2023 2:06 PM Attending Physician Statement I have discussed the case, including pertinent history and exam findings with Dr. Tanner, surgical instruments inspector and have personally seen the patient. I agree with the assessment, plan and orders as documented. 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 Maybe Screened via [facility]. Patient is from home, with daughter, and reports goal to return at discharge. She endorses utilization of a shower chair, walker, and CPAP at night. [facility] 11-20-2023 Note 11/20/23 0946 Admission Assessment Questions [...] to send link and activate MyChart? No [facility] 06-18-2023 Note [place] Electrophysiology Consult Note Reason for visit: AF [...] No current facilit (more content not included)... [facility] 06-18-2023 Note Patient here for 6 m [...] All other systems reviewed and are negative. [facility] 06-14-2021 Note [facility] [place], [place] NAME: ANGIE WATT A DATE OF : MEDICAL REC#: [id number] [employer] MICA: CASSIE DOMINGUEZ ADMIT DATE: 06/14/2021 08:37:00 NURSE PRACTITIONER DATE: 06/20/2021 08:00 DICTATING PHYSICIAN: CHARLI PULIDO DICTATION DATE: 06/14/2021 18:00 duplicate entry Electronically Authenticated and Edited by: Charli Pulido MD on 12/05/2021 07:50 PM EDT [facility] [place], [place] NAME: ANGIE WATT A DATE OF : MEDICAL REC#: [id number] CRUS[employer] MICA: CASSIE DOMINGUEZ ADMIT DATE: 06/14/2021 08:37:00 NURSE PRACTITIONER DATE: 06/20/2021 08:00 DICTATING PHYSICIAN: CHARLI PULIDO [...] in an anterior/posterior direction. 360 joules of Billings's cardioversion on two occasions did not convert [...] CHARLI PULIDO 12/05/2021 19:42:00 [facility] Evaluation + Plan note No data available for this section [facility] Hospital Discharge instructions No data available for this section [facility] Progress note No data available for this section [facility] Summary Purpose Family History No Family History Records FoundNo Family History Records Found No data available for this section No Family History Records FoundNo Family History Records Found Advance Directives No Advanced Directives Records FoundNo Advanced Directives Records FoundNo Advanced Directives Records FoundNo Advanced Directives Records Found Additional Source Comments INFORMATION SOURCE (unrecogn ized section and content) DATE CREATED AUTHOR 08/17/2021 [facility] DATE CREATED AUTHOR AUTHOR'S ORGANIZ ATION 05/19/2022 [facility] DATE CREATED AUTHOR AUTHOR'S ORGANIZ ATION 02/11/2024 [facility] DATE CREATED AUTHOR AUTHOR'S ORGANIZ ATION 02/15/2024 [facility] Patient Care team informatio n (unrecognized section and content) Personnel Name: Kerri Smith MD Address: Address: [address] [place] [address] FOR RECORDS PERTAINING TO PATIENTS WHO ARE [...] BE BASED ON THE PRIMARY CLINICAL RECORDS. [facility]. provides no warranty or guarantee of the accuracy or completeness of information in this document.
== END 2024-03-16 15:42 | disposition home or self-care (01) ==
PROVIDERS: PCP Family Medicine; Visit Provider Family Medicine
DX: K57.92 Diverticulitis of intestine, part unspecified, without perforation or abscess without bleeding (principal); K56.609 Unspecified intestinal obstruction, unspecified as to partial versus complete obstruction; I71.43 Infrarenal abdominal aortic aneurysm, without rupture; I72.3 Aneurysm of iliac artery
CPT/HCPCS: 74022; 74177; Q9966; Q9967

== ENCOUNTER 2024-03-17 14:14 | Inpatient (IN) | payer MEDICARE, OTHER, SELFPAY ==
[2024-03-17] VITALS (14 sets, daily range): BP systolic 115–146; BP diastolic 79–96; PULSE 80–99; TEMP 36.7–36.9; O2SAT 93–97; BMI 42.0; BMI 41.0
--- NOTE | 2024-03-17 14:23 | ED_ITS ---
HPI HPI - General Adult General Chief complaint: Nausea/Vomiting/Diarrhea Stated complaint: NAUSEA/VOMITTING Time Seen by Provider: 03/17/24 14:17 Source: patient Mode of arrival: walk-in Limitations: no limitations History of Present Illness HPI narrative: Patient is a 73-year-old female who was referred to the emergency department by her primary care provider for evaluation of emesis throughout the day today. Patient is well-known to this emergency department, she has a colonic stricture and has been seen in [place] previously for this. She has a general surgeon there who is awaiting an upcoming procedure for this. She has continued to have issues with vomiting and constipation. She was seen in this emergency department on 03/08 and was seen by her primary care provider yesterday. She had a CT 1 week ago as well as yesterday with oral contrast. CT showed continued inflammation and stricture with ileus. Patient was apparently contacted by her PCP today and she reported brown emesis and was referred to the ER. She denies abdominal pain, she states she has some discomfort with vomiting. No fevers or upper respiratory symptoms. She reports no bowel movement for the last 4 days. Related Data Home Medications ?Medication ?Instructions ?Recorded ?Confirmed amiodarone 100 mg tablet 100 mg PO DAILY 11/19/23 03/17/24 apixaban 5 mg tablet (Eliquis) 5 mg PO Q12H 11/19/23 03/17/24 carvedilol 6.25 mg tablet 6.25 mg PO Q12H 11/19/23 03/17/24 doxepin 25 mg capsule 50 mg PO .pm 11/19/23 03/17/24 levothyroxine 50 mcg tablet 50 mcg PO DAILY 11/19/23 03/17/24 omeprazole 40 mg capsule,delayed 40 mg PO DAILY 11/19/23 03/17/24 release Previous Rx's ?Medication ?Instructions ?Recorded amoxicillin 500 mg tablet 1,000 mg (2 x 500 mg) PO BID #120 03/12/24 tabs Allergies Allergy/AdvReac Type Severity Reaction Status Date / Time No Known Drug Allergies Allergy Verified 03/08/24 13:19 Opioid HPI Opioid Management Most Recent Opioid Data: Last Pain Scale 7 03/17/24 16:10 Last Pain Assessment 03/12/24 11:00 Last MAR Pain Assessment 03/17/24 16:10 Last ORT Total Score 0 09/22/24 16:18 Last ORT Risk Category Low Risk 03/08/24 16:18 Review of Systems ROS Constitutional Denies: fever or chills Ears, nose, mouth, and throat Denies: throat pain or nasal congestion Cardiovascular Denies: chest pain Respiratory Denies: shortness of breath Gastrointestinal Reports: abdominal pain, nausea, vomiting and constipation; Denies: diarrhea Genitourinary Denies: painful urination Integumentary/Breast Denies: rash Hematologic/Lymphatic Denies: easy bruising or easy bleeding [facility] Medical History (Updated 03/17/24 @ 17:13 by SIMONE Silva) Abdominal pain ?R10.9 - Unspecified abdominal pain (ICD-10) Abdominal pain ?R10.9 - Unspecified abdominal pain (ICD-10) Partial bowel obstruction ?K56.600 - Partial intestinal obstruction, unspecified as to cause (ICD-10) Partial obstruction of colon ?K56.600 - Partial intestinal obstruction, unspecified as to cause (ICD-10) Diverticulitis ?K57.92 - Diverticulitis of intestine, part unspecified, without perforation or abscess without bleeding (ICD-10) Hypertension ?I10 - Essential (primary) hypertension (ICD-10) A-fib ?I48.91 - Unspecified atrial fibrillation (ICD-10) Acute diverticulitis ?K57.92 - Diverticulitis of intestine, part unspecified, without perforation or abscess without bleeding (ICD-10) Abdominal pain ?R10.9 - Unspecified abdominal pain (ICD-10) Surgical History History of cholecystectomy ?Z90.49 - Acquired absence of other specified parts of digestive tract (ICD- 10) Family History Sister Family history of hypertension Father Family history of myocardial infarction Social History Within the past year, how often did you have a drink containing alcohol: never Within the past year, how often did you have six or more drinks on one occasion: never Score interpretation: A score less than 3 is consistent with normal alcohol consumption. Smoking status: Former smoker Non-prescribed substance use: denies use Previous occupational history: retired Highest level of school completed/degree received: 10th grade Are you now , , , , never or living with a partner: In a typical week, how many times do you talk on the telephone with family, friends, or neighbors: 3 or more times per week How often do you get together with friends or relatives: twice per week How often do you attend holiness or church services: 4 or more times per year Do you belong to any clubs or organizations such as holiness groups unions, [employer] or athletic groups, or school groups: no Total score: 2 Score interpretation: A score of greater than or equal to 2 indicates the lowest level of social isolation. Little interest or pleasure in doing things: not at all Feeling down, depressed, or hopeless: not at all Feel stressed/tense/nervous/anxious/difficulty sleeping: not at all Do you think of yourself as: straight/heterosexual Gender Identity: female Exam Narrative Exam Narrative: Gen.: Awake, alert, in no distress Head: Normocephalic, atraumatic ENT: Moist mucous membranes Respiratory: No respiratory distress, lungs clear bilaterally Cardio: Regular rate and rhythm Gastrointestinal: Abdomen is soft, nondistended and nontender to palpation Extremities: Moves extremities equally Psych: Normal mood and affect Neuro: No focal neuro deficit Skin: Warm, dry, intact Constitutional Vital Signs, click to edit/add: Last Vital Signs Temp 98.0 F 03/17/24 14:19 Pulse 99 H 03/17/24 14:19 Resp 18 03/17/24 14:19 BP 126/88 03/17/24 15:00 Pulse Ox 97 03/17/24 15:50 Course Vital Signs Vital signs: Vital Signs Temperature 98.0 F 03/17/24 14:19 Pulse Rate 99 H 03/17/24 14:19 Respiratory Rate 18 03/17/24 14:19 Blood Pressure 144/96 H 03/17/24 14:19 Pulse Oximetry 97 03/17/24 14:19 Temperature 98.0 F 03/17/24 14:19 Pulse Rate 99 H 03/17/24 14:19 Respiratory Rate 18 03/17/24 14:19 Blood Pressure 126/88 03/17/24 15:00 Pulse Oximetry 97 03/17/24 15:50 Medical Decision Making MDM Narrative Medical decision making narrative: 1638: Patient with stable laboratory studies, she had no episodes of emesis in the emergency department and was initially medicated with IV fluids, Reglan, Protonix. Patient requested additional pain medication and nausea medication and was treated with Dilaudid and Zofran. Dr. Mason was paged at [facility] at 1510, we have still not received a phone call back from him and will pursue general surgery on-call through the transfer line of [facility]. Patient is hemodynamically stable at this time. 1700: Transfer line was unaware that Dr. Mason is unavailable this week and we were contacted by Dr. Bai who is covering. He recommended that the patient be admitted to this facility for a bowel regimen, if she is able to start having bowel movements with stool softeners and enemas in the next day, there is no indication for transfer to tertiary care. If she is still unable to have bowel movements with the bowel regimen, she will likely need to be transferred to [place]. Discussed with Dr. Scott who is taking admissions for Dr. Smith. Patient will be admitted for observation to [facility] for further treatment per Dr. Smith. Emily at this time. SHARED APC VISIT, PHYSICIAN ATTESTATION: [id number] I performed a substantive part of the MDM during the patient?s E/M visit. I personally evaluated and examined the patient. I personally made or approved the documented management plan and acknowledge its risk of complications. Medical Records Medical records reviewed: Yes I reviewed the patient's medical records Lab Data Lab results reviewed: Yes I reviewed the patient's lab results Labs: Lab Results 03/17/24 Range/Units 14:25 WBC 9.4 (4.0-11.0) 10^3/uL RBC 4.08 L (4.20-5.40) 10^6/uL Hgb 11.2 L (12.0-16.0) g/dL Hct 34.8 L (36.0-48.0) % MCV 85.3 (81.0-99.0) fL MCH 27.5 (26.7-34.0) pg MCHC 32.2 (29.9-35.2) g/dL RDW 19.0 H (11.0-15.0) % Plt Count 460 H (150-450) 10^3/uL MPV 10.2 (9.5-13.5) fL Neut % (Auto) 81.1 H (43.0-75.0) % Lymph % (Auto) 10.6 L (20.5-60.0) % Bleckley % (Auto) 6.9 (1.7-12.0) % Eos % (Auto) 1.0 (0.9-7.0) % Baso % (Auto) 0.1 L (0.2-2.0) % Neut # (Auto) 7.6 H (1.4-6.5) 10^3/uL Lymph # (Auto) 1.0 L (1.2-3.8) 10^3/uL [place]ck[place] # (Auto) 0.7 (0.3-0.8) 10^3/uL Eos # (Auto) 0.1 (0.0-0.7) 10^3/uL Baso # (Auto) 0.0 (0.0-0.1) 10^3/uL Abs Immat Gran (auto) 0.03 (0.00-0.03) 10^3/uL Imm/Tot Granulo (auto) 0.3 (0.0-0.5) % ESR 93 H (<=30) mm/hr PT 11.2 (9.0-11.6) sec INR 1.06 Sodium 136 (136-145) mmol/L Potassium 3.6 (3.5-5.1) mmol/L Chloride 99 (98-107) mmol/L Carbon Dioxide 24.5 (21.0-32.0) mmol/L Anion Gap 16.1 BUN 5.0 L (7.0-18.0) mg/dL Creatinine 0.92 (0.55-1.02) mg/dL Est GFR ( Amer) >60 (>=60 mL/min/1.73m^2) Est GFR (Non-Af Amer) >60 (>=60 mL/min/1.73m^2) BUN/Creatinine Ratio 5.4 Glucose 123 H (74-106) mg/dL Lactate 1.8 (0.4-2.0) mmol/L Calcium 9.3 (8.5-10.1) mg/dL Total Bilirubin 0.6 (0.2-1.0) mg/dL AST 34 (15-37) U/L ALT 57 (14-59) U/L Alkaline Phosphatase 101 (46-116) U/L C-Reactive Protein 1.55 H (<=0.50) mg/dL Total Protein 6.8 (6.4-8.2) g/dL Albumin 2.8 L (3.4-5.0) g/dL Globulin 4.0 g/dL Albumin/Globulin Ratio 0.7 Lipase 22.0 (16.0-77.0) U/L Discharge Plan Discharge Chief Complaint: Nausea/Vomiting/Diarrhea Patient Disposition: Admitted as Observation Time of Disposition Decision: 17:13 Prescriptions / Home Meds: No Action amiodarone 100 mg tablet 100 mg PO DAILY Eliquis 5 mg tablet 5 mg PO Q12H carvedilol 6.25 mg tablet 6.25 mg PO Q12H doxepin 25 mg capsule 50 mg PO .pm levothyroxine 50 mcg tablet 50 mcg PO DAILY omeprazole 40 mg capsule,delayed release(DR/EC) 40 mg PO DAILY amoxicillin 500 mg tablet 1,000 mg PO BID Qty: 120 1RF Print Language: Cambodian Referrals: Lele Smith MD [Primary Care Provider] - 1 week
[2024-03-17 14:35] LABS: Basophils Percent Auto 0.1 % (0.2-2.0); Eosinophils Absolute Auto 0.1 10^3/uL (0.0-0.7); Hematocrit 34.8 % (36.0-48.0); Hemoglobin 11.2 g/dL (12.0-16.0); Immature Granulocytes Abs Auto 0.03 10^3/uL (0.00-0.03); Immature Granulocytes Pct Auto 0.3 % (0.0-0.5); Lymphocytes Percent Auto 10.6 % (20.5-60.0); Mean Corpuscular HGB Conc 32.2 g/dL (29.9-35.2); Mean Corpuscular Hemoglobin 27.5 pg (26.7-34.0); Mean Corpuscular Volume 85.3 fL (81.0-99.0); Mean Platelet Volume 10.2 fL (9.5-13.5); Monocytes Absolute Auto 0.7 10^3/uL (0.3-0.8); Monocytes Percent Auto 6.9 % (1.7-12.0); Neutrophils Absolute Auto 7.6 10^3/uL (1.4-6.5); Neutrophils Percent Auto 81.1 % (43.0-75.0); Platelet Count 460 10^3/uL (150-450); Red Blood Count 4.08 10^6/uL (4.20-5.40); White Blood Count 9.4 10^3/uL (4.0-11.0)
[2024-03-17 14:42] LABS: Erythrocyte Sedimentation Rate 93 mm/hr (<=30)
[2024-03-17] MEDS: 0.9 % SODIUM CHLORIDE 1,000 ML 999 ML IV (14:44)
[2024-03-17 14:45] LABS: INR 1.06; Prothrombin Time 11.2 sec (9.0-11.6)
[2024-03-17] MEDS: METOCLOPRAMIDE HCL 10 MG/2 ML VIAL IVP (14:45)
[2024-03-17] MEDS: PANTOPRAZOLE SODIUM 40 MG VIAL IV (14:45)
[2024-03-17 14:46] LABS: Alanine Aminotransferase 57 U/L (14-59); Albumin Globulin Ratio 0.7; Albumin Level 2.8 g/dL (3.4-5.0); Alkaline Phosphatase 101 U/L (46-116); Anion Gap 16.1; Aspartate Amino Transferase 34 U/L (15-37); BUN Creatinine Ratio 5.4; Bilirubin Total 0.6 mg/dL (0.2-1.0); C Reactive Protein 1.55 mg/dL (<=0.50); Calcium 9.3 mg/dL (8.5-10.1); Carbon Dioxide 24.5 mmol/L (21.0-32.0); Chloride 99 mmol/L (98-107); Estimated GFR (African America >60 (>=60 mL/min/1.73m^2); Estimated GFR (Non-African Ame >60 (>=60 mL/min/1.73m^2); Glucose 123 mg/dL (74-106); Potassium 3.6 mmol/L (3.5-5.1); Sodium 136 mmol/L (136-145); Total Protein 6.8 g/dL (6.4-8.2)
[2024-03-17 14:51] LABS: Lactate/Lactic Acid 1.8 mmol/L (0.4-2.0)
[2024-03-17] MEDS: HYDROMORPHONE HCL 0.5 MG/0.5 ML SYRINGE IV (16:10)
[2024-03-17] MEDS: ONDANSETRON PF 4 MG/2 ML VIAL IV ×2 (16:10→22:06)
--- NOTE | 2024-03-17 16:52 | PC.NURSE ---
this RN assumed care of patient at this time from Su AGUDELO. pt denies current needs at this time. awaiting dispo decision.
--- OUTSIDE RECORDS SUMMARY | 2024-03-17 18:13 | XMS_ITS | CCD ---
Author Organization [facility] CliniSymt Care Team Providers Care Computed Tomography Technician Name Role Phone KERRI SMITH Referring Unavailable KERRI SMITH Primary Care Unavailable CHARLI PULIDO Attending Unavailable CHARLI PULIDO Admitting Unavailable MISC, DR FLAHERTY Admitting Unavailable NUZHAT, DR MANNING Primary Care Unavailable MISC, DR FLAHERTY Attending Unavailable MISC, DR FLAHERTY Consulting Unavailable JOE, CHARLI Consulting Unavailable HOY, DR MANNING Attending Unavailable HOY, DR MANNING Consulting Unavailable IBSHOPY, DR MANNING Primary Care Unavailable HOY, DR MANNING Admitting Unavailable OJE, CHARLI Consulting Unavailable JOE, CHARLI Admitting Unavailable JOE, CHARLI Attending Unavailable NUZHAT, DR MANNING Primary Care Unavailable Kerri Smith Primary Care Physician Pasha [facility] Attending Unavailable Kerri Smith Referring Unavailable ROHIT [...] Medication Allergies] Propensity to adverse reactions (disorder) [facility] Repository Medications Current Medications Medication [...] te Episodic/Chronic Other aftercare (2 sources) Other assisted (current) drug therapy; Translations: [Other varnisher (current) drug therapy] Onset: 06-18-2023 Episodic Other lower respiratory disease (1 source) Other forms of dyspnea; Translations: [OTHER FORMS OF DYSPNEA] Onset: 06-27-2021 Episodic Unclassified (1 source) CONTACT W/AND (SUSP) EXPOS COVID-19; Translations: [CONTACT W/AND (SUSP) EXPOS COVID-19] Onset: 03-07-2022 Results Test Name Value Interpretation Reference Range Facility Documentationon 02-12-2024 Documentation [id number] Angie Watt 1950 F Date Provider Department Center 02/12/2024 RIZWANA MURILLO [facility] St. Family History Problem Relation Age of Onset Heart attack Father Atrial fibrillation Father Atrial fibrillation Sister Family Status - Relation Status Age at Father Sister Normal [facility] Office Visiton 02-11-2024 Follow-up visit [id number] Angie Watt 1950 F Date Provider Department Center 02/11/2024 Mallika-SAIDA LAI [facility] SURG [place] Family History Problem Relation Age of Onset Heart attack Father Atrial fibrillation Father Atrial fibrillation Sister Family Status - Relation Status Age at Father Sister Level of Service:91155 [place] OFFICE/OUTPATIENT ESTABLISHED LOW MDM 20 MIN Reason for Visit and Comments: Post-op [483] - Angie is here today for post op visit: Stricture of colon, s/p 01/31/24 colonoscopy Normal [facility] 30on 01-31-2024 30 The patient is Moderately Stable - Low risk of patient condition declining or worsening The patient's goals for the shift include colonoscopy The clinical goals for the shift include VSS, safety Normal [facility] HISTOLOGY - TISSUE EXAMon LAB AP CASE REPORT Normal [facility] Comment on above: Order Comment: Pre-o p diagnosis: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 Comment on above: Order Comment: Pre-o p diagnosis: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 L arge Intestine, Left/Descending Colon. Received in formalin labeled Angie Nay, 55 cm colon tissue are four rosas soft tissue bits and strips, 0.1 to 0.6 cm. The specimen is entirely submitted in a single cassette. Blanca Chen, Pathologists' Marketing Services Manager B. Large Intestine, Sigmoid Colon. Received in formalin labeled Angie Nay, Sigmoid biopsy 30 cm are nine rosas soft tissue bits, 0.2 to 0.4 cm. The specimen is entirely submitted in a single cassette. Blanca Chen, Pathologists' Marketing Services Manager Performed By: #### L [id number] ####[facility] ([facility]ER)[address] [place] [address] LAB AP MICROSCOPIC DESCRIPTION Microscopic examination performed. 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 C olon, 55 cm, biopsy: - Tubular adenoma. B. Sigmoid colon, 30 cm, biopsy: - Colonic mucosa with no significant histologic abnormality. - No evidence of dysplasia. Performed By: #### L [id number] ####[facility] (BERICKI)[address] [place] [address] HPon 01-31-2024 HP H&P reviewed. The patient was examined and there are no changes to the H&P. CT scan showed thickening of the descending colon and sigmoid colon. Proceed for colonoscopy today. 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 Priority Lab ID A Large Intestine, Left/Descending Colon Tissue HISTOLOGY - TISSUE EXAM Saida Lai MD 01/31/241714 Description: 55cm colon tissue B Large Intestine, Sigmoid Colon Tissue HISTOLOGY - TISSUE EXAM Saida Lai MD 01/31/241715 Description: sigmoid biopsy 30cm Staff: [employer]: Kaur Jacinto RN Scrub Person: Lacy Binting, NCR OPERATOR Indications: Angie Watt is an 73 y.o. female who is having surgery for Stricture of colon ([facility] [K56.699]. Colonoscopy was offered to the patient, [...] Recommendations: 1. Await pathology Follow up with [place] [phone] pager [phone] clinic Normal [facility] POCT GLUCOSE METER UNSOLICIT ED RESULTSon 01-31-2024 Glucose [Mass/Vol] 91 mg/dL Normal 70-105 [facility] Comment on above: Order Comment: Waive d Testing in the ED is performed under the ED CLIA certificate #[id number]. Result Comment: [email or web address] [id number] Performed By: #### L [id number] #### [facility] ([facility]ATRIZAKER) [address] [place] [address] 30on 01-30-2024 30 The patient is Moderately Stable - Low risk of patient condition declining or worsening The patient's goals for the shift include bowel prep The clinical goals for the shift include bowel prep, VSS Normal [facility] 30 The patient is Moderately Stable - [...] and behaviors that affect risk of falls [place] fall precautions as indicated by assessment Problem: [...] symptoms for stability, deterioration, or improvement Normal [facility] CEAon 01-30-2024 CARCINOEMBRYONIC AG (NG/ML) IN SER/PLAS 2.0 ng/mL Normal 0-3 [facility] Comment on above: Performed By: #### L [id number] #### [facility] (BERICKI) [address] [place] [address] 30on 01-29-2024 30 The patient is Moderately [...] and behaviors that affect risk of falls [place] fall precautions as indicated by assessment Problem: [...] symptoms for stability, deterioration, or improvement Normal [facility] 30 The patient is Moderately Stable - [...] and behaviors that affect risk of falls [place] fall precautions as indicated by assessment Educate [...] and prevent overall improvement and discharge Normal [facility] 30 The patient is Moderately Stable - [...] and behaviors that affect risk of falls [place] fall precautions as indicated by assessment Educate [...] and prevent overall improvement and discharge Normal [facility] BLOOD CULTUREon 01-28-2024 Bacteria identified Cx Nom (Bld) No growth at 5 days Normal [facility] Comment on above: Performed By: #### L [id number] ####[facility] ([facility]ER)[address] [place] [address] Order Comment: From a different site than #1., Blood CBC WITH AUTO DIFFERENTIALon 01-28-2024 Basophils (Bld) [#/Vol] 0.02 10*3/uL Normal 0.00-0.20 [facility] Comment on above: Performed By: #### L [id number] #### [facility] LAB (BEAKER) [address] , [place] [address] Basophils/100 WBC (Bld) 0.3 % Normal 0.0-1.0 [facility] Comment on above: Performed By: #### L [id number] #### [facility] (BEAKER) [address] , [place] [address] Eosinophils (Bld) [#/Vol] 0.13 10*3/uL Normal 0.00-0.50 [facility] Comment on above: Performed By: #### L [id number] #### [facility] ([facility]AKER) [address] , [place] [address] Eosinophils/100 WBC (Bld) 2.0 % Normal 0.0-6.0 [facility] Comment on above: Performed By: #### L [id number] #### [facility] (BEAKER) [address] , [place] [address] Erythrocyte distribution width (RBC) [Ratio] 17.5 % High 11.5-15.0 [facility] Comment on above: Performed By: #### L [id number] #### [facility] [address] [place] [address] ERYTHROCYTE MEAN CORPUSCULAR HEMOGLOBIN CONCENTRATION (G/DL) BY AUTOMATED 30.5 g/dL Low 32.0-35.0 [facility] Comment on above: Performed By: #### L [id number] #### [facility] ([facility]) [address] [place] [address] Hematocrit (Bld) [Volume fraction] 36.7 % Normal 36.0-48.0 [facility] Comment on above: Performed By: #### L [id number] #### [facility] ([facility]) [address] [place] [address] Hemoglobin (Bld) [Mass/Vol] 11.2 g/dL Low 12.0-15.0 [facility] Comment on above: Performed By: #### L [id number] #### [facility] ([facility]) [address] [place] [address] Immature granulocytes (Bld) [#/Vol] 0.02 10*3/uL Normal 0.00-0.20 [facility] Comment on above: Performed By: #### L [id number] #### [facility] ([facility]) [address] [place] [address] Immature granulocytes/100 WBC (Bld) 0.3 % Normal 0.0-1.0 [facility] Comment on above: Performed By: #### L [id number] #### [facility] ([facility]) [address] [place] [address] Lymphocytes (Bld) [#/Vol] 1.37 10*3/uL Normal 1.20-4.00 [facility] Comment on above: Performed By: #### L [id number] #### [facility] ([facility]) [address] [place] [address] Lymphocytes/100 WBC (Bld) 21.0 % Normal 20.0-45.0 [facility] Comment on above: Performed By: #### L [id number] #### [facility] ([facility]) [address] [place] [address] MCH (RBC) [Entitic mass] 26.7 pg Low 27.0-33.0 [facility] Comment on above: Performed By: #### L [id number] #### [facility] [address] [place] [address] MCV (RBC) [Entitic vol] 87.4 fL Normal 82.0-98.0 [facility] Comment on above: Performed By: #### L [id number] #### [facility] ([facility]) [address] [place] [address] Monocytes (Bld) [#/Vol] 0.49 10*3/uL Normal 0.10-1.00 [facility] Comment on above: Performed By: #### L [id number] #### [facility] ([facility]) [address] [place] [address] Monocytes/100 WBC (Bld) 7.5 % Normal 5.0-12.0 [facility] Comment on above: Performed By: #### L [id number] #### [facility] ([facility]) [address] [place] [address] Neutrophils (Bld) [#/Vol] 4.48 10*3/uL Normal 1.60-7.60 [facility] Comment on above: Performed By: #### L [id number] #### [facility] ([facility]) [address] [place] [address] Neutrophils/100 WBC (Bld) 68.9 % Normal 40.0-72.0 [facility] Comment on above: Performed By: #### L [id number] #### [facility] ([facility]) [address] [place] [address] NRBC (PER 100 WBCS) BY AUTOMATED COUNT 0.0 % Normal 0 [facility] Comment on above: Performed By: #### L [id number] #### [facility] ([facility]) [address] [place] [address] PLATELETS (10*3/UL) IN BLOOD AUTOMATED COUNT 437 10*3/uL High 150-400 [facility] Comment on above: Performed By: #### L [id number] #### [facility] ([facility]) [address] [place] [address] RBC (Bld) [#/Vol] 4.20 10*6/uL Normal 3.80-5.00 [facility] Comment on above: Performed By: #### L [id number] #### [facility] ([facility]) [address] [place] [address] WBC (Bld) [#/Vol] 6.51 10*3/uL Normal 4.00-10.60 [facility] Comment on above: Performed By: #### L [id number] #### [facility] ([facility]) [address] [place] [address] COMPREHENSIVE METABOLIC PANE Nacho 01-28-2024 Albumin [Mass/Vol] 3.4 g/dL Low 3.5-5.7 [facility] Comment on above: Performed By: #### L [id number] #### [facility] ([facility]) [address] [place] [address] ALP [Catalytic activity/Vol] 109 U/L High 34-104 [facility] Comment on above: Performed By: #### L [id number] #### [facility] ([facility]) [address] [place] [address] ALT [Catalytic activity/Vol] 11 U/L Normal 7-52 [facility] Comment on above: Performed By: #### L [id number] #### [facility] ([facility]) [address] [place] [address] Anion gap [Moles/Vol] 11 mmol/L Normal 7-20 [facility] Comment on above: Performed By: #### L [id number] #### [facility] ([facility]) [address] [place] [address] AST [Catalytic activity/Vol] 12 U/L Low 13-39 [facility] Comment on above: Performed By: #### L [id number] #### [facility] ([facility]) [address] [place] [address] Bilirubin [Mass/Vol] 0.5 mg/dL Normal 0.3-1.0 [facility] Comment on above: Performed By: #### L [id number] #### [facility] ([facility]) [address] [place] [address] Calcium [Mass/Vol] 8.5 mg/dL Low 8.6-10.3 [facility] Comment on above: Performed By: #### L [id number] #### [facility] ([facility]) [address] [place] [address] Chloride [Moles/Vol] 105 mmol/L Normal 98-107 [facility] Comment on above: Performed By: #### L [id number] #### [facility] ([facility]) [address] [place] [address] CO2 [Moles/Vol] 27 mmol/L Normal 21-31 [facility] Comment on above: Performed By: #### L [id number] #### [facility] ([facility]) [address] [place] [address] Creatinine [Mass/Vol] 0.59 mg/dL Low 0.60-1.20 [facility] Comment on above: Performed By: #### L [id number] #### [facility] ([facility]) [address] [place] [address] GLOMERULAR FILTRATION RATE ML/MIN/1.73 SQ M.PREDICTED 96.3 mL/min/1.73m*2 Normal >60.0 [facility] Comment on above: Result Comment: [facility]???s estimated glomerular filtration rate (eGFR) will no [...] group of individuals. Performed By: #### L [id number] #### [facility] ([facility]) [address] [place] [address] Glucose [Mass/Vol] 84 mg/dL Normal 70-100 [facility] Comment on above: Performed By: #### L [id number] #### [facility] ([facility]) [address] [place] [address] Potassium [Moles/Vol] 3.5 mmol/L Normal 3.5-5.1 [facility] Comment on above: Performed By: #### L [id number] #### [facility] ([facility]) [address] [place] [address] Protein [Mass/Vol] 6.3 g/dL Normal 6.0-8.3 [facility] Comment on above: Performed By: #### L [id number] #### [facility] ([facility]) [address] [place] [address] Sodium [Moles/Vol] 139 mmol/L Normal 136-145 [facility] Comment on above: Performed By: #### L [id number] #### [facility] ([facility]) [address] [place] [address] Urea nitrogen [Mass/Vol] 6 mg/dL Low 7-25 [facility] Comment on above: Performed By: #### L [id number] #### [facility] ([facility]) [address] [place] [address] UREA NITROGEN/CREATININE (MASS RATIO) IN SER/PLAS 10.2 Normal [facility] Comment on above: Performed By: #### L [id number] #### [facility] ([facility]) [address] [place] [address] CONSULTon 01-28-2024 CONSULT Reason For Consult Partial [...] smoking history. She has been sent from [place] where she was admitted on January 26 [...] discharge. N (more content not included)... Normal [facility] CT ABDOMEN PELVIS W IV CONTR Kermit [...] Francisco Cosby. Not Vldtd Invalid Interpretation Code [facility] HPon 01-28-2024 Reason For Consult Partial bowel [...] smoking history. She has been sent from [place] where she was admitted on January 26 [...] discharge. N (more content not included)... Normal [facility] LACTIC ACID, PLASMAon 2023 LACTATE (MMOL/L) IN SER/PLAS 0.8 mmol/L Normal 0.5-2.2 [facility] Comment on above: Performed By: #### L [id number] #### [facility] LAB (BEAKER) [address] [place] [address] LIPASEon 01-28-2024 LIPASE (U/L) IN SER/PLAS 7 U/L Low 11-82 [facility] Comment on above: Performed By: #### L [id number] #### [facility] ([facility]) [address] [place] [address] PROTIME-INRon 01-28-2024 INR IN PPP BY COAGULATION ASSAY 1.21 High 0.90-1.10 [facility] Comment on above: Result Comment: ACCC P [...] CHEST 1995;108:231S-246S. Performed By: #### L [id number] ####[facility] ([facility])[address] [place] [address] PROTHROMBIN TIME (PT) IN PPP BY COAGULATION ASSAY 15.3 Seconds High 12.3-14.8 [facility] Comment on above: Performed By: #### L [id number] ####[facility] ([facility])[address] [place] [address] TROPONIN Ion 01-28-2024 Troponin I.cardiac [Mass/Vol] 0.01 ng/mL Normal 0.00-0.04 [facility] Comment on above: Performed By: #### L [id number] ####[facility] ([facility])[address] [place] [address] Ambulatory Visit Summaryon 0 01-21-2024 Ambulatory Visit Summary Ambulatory Visit Summary ANGIE WATT :1950 Visit Date:01/21/2024 Ambulatory Visit Instructions Your Care Team Attending Physician - ISREAL CARLSON, Pasha Mercado Primary Care Physician - Nuzhat CARLSON, Kerri Referring Physician - Kerri Smtih MD This Is Your Medications List apixaban [...] for choosing us for your care. Yair [facility] Ambulatory Visit Summary Ambulatory Visit [...] for choosing us for your care. Normal [facility] Office Visiton 12-24-2023 Follow-up visit [id number] Angie Watt Gómez 1950 F Date Provider Department Center 12/24/2023 RIZWANA MURILLO [facility] Family History Problem Relation Age of Onset Heart attack Father Atrial fibrillation Father Atrial fibrillation Sister Family Status - Relation Status Age at Father Sister Level of Service:12147 [place] OFFICE/OUTPATIENT ESTABLISHED MOD MDM 30 MIN Normal [facility] Physician Referralon 024 Physician Referral [phone] 03 [id number]#1.00 TIFF Normal [facility] BASIC METABOLIC PANELon Anion gap [Moles/Vol] 12 mmol/L Normal 7- [facility] Comment on above: Performed By: #### L [id number] #### [facility] ([facility]) [address] [place] [address] Calcium [Mass/Vol] 8.5 mg/dL Low 8.6-10.3 [facility] Comment on above: Performed By: #### L [id number] #### [facility] ([facility]) [address] [place] [address] Chloride [Moles/Vol] 101 mmol/L Normal 98-107 [facility] Comment on above: Performed By: #### L [id number] #### [facility] ([facility]) [address] [place] [address] CO2 [Moles/Vol] 26 mmol/L Normal 21-31 [facility] Comment on above: Performed By: #### L [id number] #### [facility] ([facility]) [address] [place] [address] Creatinine [Mass/Vol] 0.78 mg/dL Normal 0.60-1.20 [facility] Comment on above: Performed By: #### L [id number] #### [facility] ([facility]) [address] [place] [address] GLOMERULAR FILTRATION RATE ML/MIN/1.73 SQ M.PREDICTED 81.2 mL/min/1.73m*2 Normal >60.0 [facility] Comment on above: Result Comment: The [facility]???s estimated glomerular filtration rate (eGFR) will no [...] group of individuals. Performed By: #### L [id number] #### [facility] ([facility]) [address] [place] [address] Glucose [Mass/Vol] 91 mg/dL Normal 70-100 [facility] Comment on above: Performed By: #### L [id number] #### [facility] ([facility]) [address] [place] [address] Potassium [Moles/Vol] 3.9 mmol/L Normal 3.5-5.1 [facility] Comment on above: Performed By: #### L [id number] #### [facility] ([facility]) [address] [place] [address] Sodium [Moles/Vol] 135 mmol/L Low 136-145 [facility] Comment on above: Performed By: #### L [id number] #### [facility] ([facility]) [address] [place] [address] Urea nitrogen [Mass/Vol] 8 mg/dL Normal 7-25 [facility] Comment on above: Performed By: #### L [id number] #### [facility] ([facility]) [address] [place] [address] UREA NITROGEN/CREATININE (MASS RATIO) IN SER/PLAS 10.3 Normal [facility] Comment on above: Performed By: #### L [id number] #### [facility] ([facility]) [address] [place] [address] CBCon 11-22-2023 Erythrocyte distribution width (RBC) [Ratio] 15.9 % High 11.5-15.0 [facility] Comment on above: Performed By: #### L [id number] #### [facility] ([facility]) [address] [place] [address] ERYTHROCYTE MEAN CORPUSCULAR HEMOGLOBIN CONCENTRATION (G/DL) BY AUTOMATED 31.3 g/dL Low 32.0-35.0 [facility] Comment on above: Performed By: #### L [id number] #### [facility] ([facility]) [address] [place] [address] Hematocrit (Bld) [Volume fraction] 35.2 % Low 36.0-48.0 [facility] Comment on above: Performed By: #### L [id number] #### [facility] ([facility]) [address] [place] [address] Hemoglobin (Bld) [Mass/Vol] 11.0 g/dL Low 12.0-15.0 [facility] Comment on above: Performed By: #### L [id number] #### [facility] ([facility]) [address] [place] [address] MCH (RBC) [Entitic mass] 27.5 pg Normal 27.0-33.0 [facility] Comment on above: Performed By: #### L [id number] #### [facility] ([facility]) [address] [place] [address] MCV (RBC) [Entitic vol] 88.0 fL Normal 82.0-98.0 [facility] Comment on above: Performed By: #### L [id number] #### [facility] ([facility]) [address] [place] [address] PLATELETS (10*3/UL) IN BLOOD AUTOMATED COUNT 341 10*3/uL Normal 150-400 [facility] Comment on above: Performed By: #### L [id number] #### [facility] ([facility]) [address] [place] [address] RBC (Bld) [#/Vol] 4.00 10*6/uL Normal 3.80-5.00 [facility] Comment on above: Performed By: #### L [id number] #### [facility] ([facility]) [address] [place] [address] WBC (Bld) [#/Vol] 7.75 10*3/uL Normal 4.00-10.60 [facility] Comment on above: Performed By: #### L [id number] #### [facility] ([facility]) [address] [place] [address] DSon 11-22-2023 DS Admission Admitted 11/20/2023 for [...] Medications These medications were sent to [facility] - [place], [place] - [address] [facility] [place] [address] [facility] [place] [address], [facility] [address] acetaminophen 500 mg tablet Activity Normal activity [...] history of a cholecystectomy who presents to [facility] as a direct transfer from [place] with diverticulitis. Pt had been having on [...] hgb 11.5, otherwise wnl. Upon arrival to [facility], pt was started on a CLD, [...] appointments. Test Results Pending At Discharge Normal [facility] 30on 11-21-2023 30 Daily Case Managemen t Update Multidisciplinary rounds have been completed. Barriers to Discharge: Management of diverticulitis; on full liquid diet and IV fluids. Plan to discharge home when medically ready. Diet: Dietary Orders (From admission, onward) Start Ordered 11/21/23 1208 Full Liquid Diet Diet effective now Question: Room Service? Answer: No 11/21/23 1207 11/20/23 1632 Dietary nutrition supplements Lunch; Liquacel; Williamson; 2 packets; Oral Until discontinued Question Answer Comment Deliver with Lunch Select supplement: Liquacel flavor Williamson Strength: 2 packets Route Oral 11/20/23 1631 11/20/23 1631 Dietary nutrition supplements TID; Resource Breeze; 8 oz; Oral Until discontinued Question Answer Comment Deliver with TID Select supplement: Resource Breeze Strength: 8 oz Route Oral 11/20/23 1631 Physician Expected Discharge Date: 11/23/2023 Discharge Delays: PT Six Click Score: 17 OT Six Click Score: PT Recommendations: OT Recommendations: New Consults: Normal [facility] BASIC METABOLIC PANELon 06-0 Anion gap [Moles/Vol] 11 mmol/L Normal 7-20 [facility] Comment on above: Performed By: #### L [id number] #### [facility] ([facility]) [address] [place] [address] Calcium [Mass/Vol] 8.6 mg/dL Normal 8.6-10.3 [facility] Comment on above: Performed By: #### L [id number] #### [facility] ([facility]) [address] [place] [address] Chloride [Moles/Vol] 102 mmol/L Normal 98-107 [facility] Comment on above: Performed By: #### L [id number] #### [facility]) [address] [place] [address] CO2 [Moles/Vol] 26 mmol/L Normal 21-31 [facility] Comment on above: Performed By: #### L [id number] #### [facility] ([facility]) [address] [place] [address] Creatinine [Mass/Vol] 0.75 mg/dL Normal 0.60-1.20 [facility] Comment on above: Performed By: #### L [id number] #### [facility] ([facility]) [address] [place] [address] GLOMERULAR FILTRATION RATE ML/MIN/1.73 SQ M.PREDICTED 85.1 mL/min/1.73m*2 Normal >60.0 [facility] Comment on above: Result Comment: [facility]???s estimated glomerular filtration rate (eGFR) will no [...] individuals. Performed By: #### L [id number] #### [facility] ([facility]) [address] [place] [address] Glucose [Mass/Vol] 93 mg/dL Normal 70-100 [facility] Comment on above: Performed By: #### L [id number] #### [facility] ([facility]) [address] [place] [address] Potassium [Moles/Vol] 3.9 mmol/L Normal 3.5-5.1 [facility] Comment on above: Performed By: #### L [id number] #### [facility] ([facility]) [address] [place] [address] Sodium [Moles/Vol] 135 mmol/L Low 136-145 [facility] Comment on above: Performed By: #### L [id number] #### [facility] ([facility]) [address] [place] [address] Urea nitrogen [Mass/Vol] 8 mg/dL Normal 7-25 [facility] Comment on above: Performed By: #### L [id number] #### [facility] ([facility]) [address] [place] [address] UREA NITROGEN/CREATININE (MASS RATIO) IN SER/PLAS 10.7 Normal [facility] Comment on above: Performed By: #### L [id number] #### [facility] ([facility]) [address] [place] [address] CBCon 11-21-2023 Erythrocyte distribution width (RBC) [Ratio] 15.6 % High 11.5-15.0 [facility] Comment on above: Performed By: #### L [id number] #### [facility] ([facility]) [address] [place] [address] ERYTHROCYTE MEAN CORPUSCULAR HEMOGLOBIN CONCENTRATION (G/DL) BY AUTOMATED 31.7 g/dL Low 32.0-35.0 [facility] Comment on above: Performed By: #### L [id number] #### [facility] ([facility]) [address] [place] [address] Hematocrit (Bld) [Volume fraction] 34.7 % Low 36.0-48.0 [facility] Comment on above: Performed By: #### L [id number] #### [facility] ([facility]) [address] [place] [address] Hemoglobin (Bld) [Mass/Vol] 11.0 g/dL Low 12.0-15.0 [facility] Comment on above: Performed By: #### L [id number] #### [facility] ([facility]) [address] [place] [address] MCH (RBC) [Entitic mass] 27.4 pg Normal 27.0-33.0 [facility] Comment on above: Performed By: #### L [id number] #### [facility] ([facility]) [address] [place] [address] MCV (RBC) [Entitic vol] 86.5 fL Normal 82.0-98.0 [facility] Comment on above: Performed By: #### L [id number] #### [facility] ([facility]) [address] [place] [address] PLATELETS (10*3/UL) IN BLOOD AUTOMATED COUNT 349 10*3/uL Normal 150-400 [facility] Comment on above: Performed By: #### L [id number] #### [facility] ([facility]) [address] [place] [address] RBC (Bld) [#/Vol] 4.01 10*6/uL Normal 3.80-5.00 [facility] Comment on above: Performed By: #### L [id number] #### [facility] ([facility]) [address] [place] [address] WBC (Bld) [#/Vol] 7.22 10*3/uL Normal 4.00-10.60 [facility] Comment on above: Performed By: #### L [id number] #### [facility] ([facility]) [address] [place] [address] 30on 11-20-2023 30 Problem: Pain Goal: LTG-Verbalize [...] to address these barriers include . Normal [facility] 30 The patient is Moderately Stable - [...] fall risk status, and pain status Normal [facility] CBCon 11-20-2023 Erythrocyte distribution width (RBC) [Ratio] 15.8 % High 11.5-15.0 [facility] Comment on above: Performed By: #### L [id number] #### [facility] [address] [facility] [place] [address] ERYTHROCYTE MEAN CORPUSCULAR HEMOGLOBIN CONCENTRATION (G/DL) BY AUTOMATED 31.9 g/dL Low 32.0-35.0 [facility] Comment on above: Performed By: #### L [id number] #### [facility] ([facility]) [address] [place] [address] Hematocrit (Bld) [Volume fraction] 36.1 % Normal 36.0-48.0 [facility] Comment on above: Performed By: #### L [id number] #### [facility] ([facility]) [address] [place] [address] Hemoglobin (Bld) [Mass/Vol] 11.5 g/dL Low 12.0-15.0 [facility] Comment on above: Performed By: #### L [id number] #### [facility] ([facility]) [address] [place] [address] MCH (RBC) [Entitic mass] 27.4 pg Normal 27.0-33.0 [facility] Comment on above: Performed By: #### L [id number] #### [facility] ([facility]) [address] [place] [address] MCV (RBC) [Entitic vol] 86.2 fL Normal 82.0-98.0 [facility] Comment on above: Performed By: #### L [id number] #### [facility] ([facility]) [address] [place] [address] PLATELETS (10*3/UL) IN BLOOD AUTOMATED COUNT 388 10*3/uL Normal 150-400 [facility] Comment on above: Performed By: #### L [id number] #### [facility] ([facility]) [address] [place] [address] RBC (Bld) [#/Vol] 4.19 10*6/uL Normal 3.80-5.00 [facility] Comment on above: Performed By: #### L [id number] #### [facility]) [address] [place] [address] WBC (Bld) [#/Vol] 9.02 10*3/uL Normal 4.00-10.60 [facility] Comment on above: Performed By: #### L [id number] #### [facility] ([facility]) [address] [place] [address] COMPREHENSIVE METABOLIC PANE Nacho 11-20-2023 Albumin [Mass/Vol] 3.8 g/dL Normal 3.5-5.7 [facility] Comment on above: Performed By: #### L [id number] #### [facility] ([facility]) [address] [place] [address] ALP [Catalytic activity/Vol] 118 U/L High 34-104 [facility] Comment on above: Performed By: #### L [id number] #### [facility] ([facility]) [address] [place] [address] ALT [Catalytic activity/Vol] 19 U/L Normal 7-52 [facility] Comment on above: Performed By: #### L [id number] #### [facility] ([facility]) [address] [place] [address] Anion gap [Moles/Vol] 9 mmol/L Normal 7-20 [facility] Comment on above: Performed By: #### L [id number] #### [facility] ([facility]) [address] [place] [address] AST [Catalytic activity/Vol] 28 U/L Normal 13-39 [facility] Comment on above: Performed By: #### L [id number] #### [facility] ([facility]) [address] [place] [address] Bilirubin [Mass/Vol] 0.6 mg/dL Normal 0.3-1.0 [facility] Comment on above: Performed By: #### L [id number] #### [facility] ([facility]) [address] [place] [address] Calcium [Mass/Vol] 8.9 mg/dL Normal 8.6-10.3 [facility] Comment on above: Performed By: #### L [id number] #### [facility] ([facility]) [address] [place] [address] Chloride [Moles/Vol] 101 mmol/L Normal 98-107 [facility] Comment on above: Performed By: #### L [id number] #### [facility] ([facility]) [address] [place] [address] CO2 [Moles/Vol] 29 mmol/L Normal 21-31 [facility] Comment on above: Performed By: #### L [id number] #### [facility] ([facility]) [address] [place] [address] Creatinine [Mass/Vol] 0.75 mg/dL Normal 0.60-1.20 [facility] Comment on above: Performed By: #### L [id number] #### [facility] ([facility]) [address] [place] [address] GLOMERULAR FILTRATION RATE ML/MIN/1.73 SQ M.PREDICTED 85.1 mL/min/1.73m*2 Normal >60.0 [facility] Comment on above: Result Comment: [facility]???s estimated glomerular filtration rate (eGFR) will no [...] group of individuals. Performed By: #### L [id number] #### [facility] ([facility]) [address] [place] [address] Glucose [Mass/Vol] 116 mg/dL High 70-100 [facility] Comment on above: Performed By: #### L [id number] #### [facility] ([facility]) [address] [place] [address] Potassium [Moles/Vol] 4.2 mmol/L Normal 3.5-5.1 [facility] Comment on above: Performed By: #### L [id number] #### [facility] ([facility]) [address] [place] [address] Protein [Mass/Vol] 7.0 g/dL Normal 6.0-8.3 [facility] Comment on above: Performed By: #### L [id number] #### [facility] ([facility]) [address] [place] [address] Sodium [Moles/Vol] 135 mmol/L Low 136-145 [facility] Comment on above: Performed By: #### L [id number] #### [facility] ([facility]) [address] [place] [address] Urea nitrogen [Mass/Vol] 12 mg/dL Normal 7-25 [facility] Comment on above: Performed By: #### L [id number] #### [facility] ([facility]) [address] [place] [address] UREA NITROGEN/CREATININE (MASS RATIO) IN SER/PLAS 16.0 Normal [facility] Comment on above: Performed By: #### L [id number] #### [facility] ([facility]) [address] [place] [address] CONSULTon 11-20-2023 CONSULT Clinical Nutrition Assessment: Name: Angie Watt Room: [address] [place] [address] Date: 1950 Date of Visit: 11/20/23 Admission [...] Last BM 11/18; c/o N/V/D 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 CT [...] (11/20/2023). 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 For weekends & holidays, the dietitian can be reached via pager [phone] from 9A-3P. Unable to respond to Integrate chat messages on Saturday & . Normal [facility] HPon 11-20-2023 HP -- Attestation signed by Saida Lai MD at 11/21/2023 8:37 AM Attending Physician Statement I have discussed the case, including pertinent history and exam findings with Dr. Tanner, residential monitor and have personally seen the patient. I agree with the assessment, plan and orders as documented. [phone] pager [phone] phone [facility] HISTORY & PHYSICAL Reason for Admission: diverticulitis History of Present Illness: Angie Watt is a 73 y.o. female with PMH of atrial fibrillation s/p ablation on amiodarone and eliquis, HTN, hypothyroidism, and sleep apnea and past surgical history of a cholecystectomy who presents to [facility] as a direct transfer from [place] with diverticulitis. Pt had been having on [...] Atrial fib (more content not included)... Normal [facility] LACTIC ACID, PLASMAon 2023 LACTATE (MMOL/L) IN SER/PLAS 1.2 mmol/L Normal 0.5-2.2 [facility] Comment on above: Performed By: #### L [id number] #### [facility] ([facility]) [address] [place] [address] NURSNOTEon 11-20-2023 NURSNOTE Bedside reporting done, per China RN and Maia RN No complaints at this time [facility] NURSNOTE Pt sits up at side o f bed, no c/o of pain, or SOB at this time Telemetry cont. On pt IV intact, no redness noted Pulse ox--98% on room air Pt. Up walking around in room for 10 [address] [facility] NURSNOTE Pt up walking around in room, tolerates well , with walker. [facility] ULISESNOTTerry Lai notified th at we need admission orders. Notified via secure Ustream chat. [facility] NURSNOTE Pt arrived as a dire ct admission from [facility], no c/o of pain or SOB at this time Assessment completed Telemetry started on pt. Bed alarm on [facility] PHOSPHORUSon 11-20-2023 Magnesium [Mass/Vol] 2.5 mg/dL Normal 1.9-2.7 [facility] Comment on above: Performed By: #### L [id number] #### [facility] ([facility]) [address] [place] [address] Performed By: #### L [id number] #### [facility] ([facility]) [address] [place] [address] PROTIME-INRon 11-20-2023 INR IN PPP BY COAGULATION ASSAY 1.27 High 0.90-1.10 [facility] Comment on above: Result Comment: ACCC P [...] 1995;[id number]. Performed By: #### L [id number] #### [facility] ([facility]) [address] [place] [address] PROTHROMBIN TIME (PT) IN PPP BY COAGULATION ASSAY 15.8 Seconds High 12.3-14.8 [facility] Comment on above: Performed By: #### L [id number] #### [facility] ([facility]) [address] [place] [address] 36on 08-01-2023 36 Regarding echo performed on 06/27/2023: Echo is stable per Lissa Spencer CNP. I called patient and made her aware. She asked about her lab work. I told her we didn't have a copy of it in her chart. Labs were then obtained from [facility] portal and uploaded into her manager multimedia for Lissa's review. I told her I'd call her back if he didn't like the results. She thanked me and verbalized understanding. [facility] Orders Onlyon 06-25-2023 Orders Only [id number] Angie Watt 1950 F Date Provider Department Center 06/25/2023 Radha8DELFINA NELSON Family History Problem Relation Age of Onset Heart attack Father Atrial fibrillation Father Atrial fibrillation Sister Family Status - Relation Status Age at Father Sister [facility] Office Visiton 06-18-2023 Follow-up visit [id number] Angie Watt 1950 F Date Provider Department Center 06/18/2023 1596-LISSA SPENCER Family History Problem Relation Age of Onset Heart attack Father Atrial fibrillation Father Atrial fibrillation Sister Family Status - Relation Status Age at Father Sister Level of Service:45789 SD OFFICE/OUTPATIENT ESTABLISHED MOD MDM 30 MIN Normal [facility] Orders Onlyon 02-20-2023 Orders Only [id number] Angie Watt 1950 F Date Provider Department Center 02/20/2023 VALENTE LYNN [facility] Family History Problem Relation Age of Onset Heart attack Father Atrial fibrillation Father Atrial fibrillation Sister Family Status - Relation Status Age at Father Sister Normal [facility] Covid-19 PCR (CVDTB)on 02-16 SARS-CoV-2 (COVID-19) RNA SP+probe Ql (Unsp spec) Not detected Normal NOT DETECTED [facility] [place] Comment on above: Result Comment: When diagnostic [...] for this test is supported by the [place] of Health and Human Service's declaration that [...] used). Performed By: #### C VDTB #### [facility] [address] [address] [address] Maik Singleton BASIC METABOLIC PANELon 07-19 Calcium [Mass/Vol] 8.1 mg/dL Low 8.6-10.3 [facility] Comment on above: Order Comment: No: D o not add to previous draw Performed By: #### 1 0070, [id number] #### [facility] [address] [facility] [place] [address], [facility] Chloride [Moles/Vol] 99 mmol/L Normal 98-107 [facility] Comment on above: Order Comment: No: D o not add to previous draw Performed By: #### 1 69, 01828 #### [facility] [address] [place] [address], [place] CO2 [Moles/Vol] 27 mmol/L Normal 21-31 [facility] Comment on above: Order Comment: No: D o not add to previous draw Performed By: #### 1 69, [id number] #### [facility] [address] [place] [address], [place] Creatinine [Mass/Vol] 0.82 mg/dL Normal 0.60-1.20 [facility] Comment on above: Order Comment: No: D o not add to previous draw Performed By: #### 1 69, 61732 #### [facility] [address] [place] [address], [place] GFR/1.73 sq M.predicted among blacks MDRD (S/P/Bld) [Vol rate/Area] mL/min/{1.73_m2} Normal >60 [facility] Comment on above: Order Comment: No: D o not add to previous draw Performed By: #### 1 69, 04633 #### [facility] [address] [place] [address], [place] GFR/1.73 sq M.predicted among non-blacks MDRD (S/P/Bld) [Vol rate/Area] mL/min/{1.73_m2} Normal >60 [facility] Comment on above: Order Comment: No: D o not add to previous draw Performed By: #### 1 69, 84112 #### [facility] [address] [place] [address], [place] Glucose [Mass/Vol] 109 mg/dL High 70-100 [facility] Comment on above: Order Comment: No: D o not add to previous draw Performed By: #### 1 69, 20176 #### [facility] [address] [place] [address], [place] Potassium [Moles/Vol] 4.0 mmol/L Normal 3.5-5.1 [facility] Comment on above: Order Comment: No: D o not add to previous draw Performed By: #### 1 69, 44438 #### [facility] [address] [place] [id number], [facility] Sodium [Moles/Vol] 134 mmol/L Low 136-145 [facility] Comment on above: Order Comment: No: D o not add to previous draw Performed By: #### 1 69, [id number] #### [facility] [address] [place] [address], [facility] Urea nitrogen [Mass/Vol] 12 mg/dL Normal 7-25 [facility] Comment on above: Order Comment: No: D o not add to previous draw Performed By: #### 1 69, [id number] #### [facility] [address] CBC COMPLETE BLOOD COUNTon 0 - Erythrocyte distribution width (RBC) [Ratio] 15.5 % High 11.5-15.0 [facility] Comment on above: Order Comment: No: D o not add to previous draw Performed By: #### 5 0608 #### [facility] [address] [place] [address], [facility] Hematocrit (Bld) [Volume fraction] 36.9 % Normal 36.0-45.0 [facility] Comment on above: Order Comment: No: D o not add to previous draw Performed By: #### 5 0608 #### [facility] [address] [place] [id number], [facility] Hemoglobin (Bld) [Mass/Vol] 11.5 g/dL Low 12.0-15.0 [facility] Comment on above: Order Comment: No: D o not add to previous draw Performed By: #### 5 0608 #### [facility] [address] [place] [address], [facility] MCH (RBC) [Entitic mass] 27.1 pg Normal 27.0-33.0 [facility] Comment on above: Order Comment: No: D o not add to previous draw Performed By: #### 5 0608 #### [facility] [address] [place] [id number], [facility] MCHC (RBC) [Mass/Vol] 31.2 g/dL Low 32.0-35.0 [facility] Comment on above: Order Comment: No: D o not add to previous draw Performed By: #### 5 0608 #### [facility] [address] [facility] [place] [address], [facility] MCV (RBC) [Entitic vol] 87.0 fL Normal 82.0-98.0 [facility] Comment on above: Order Comment: No: D o not add to previous draw Performed By: #### 5 0608 #### [facility] [address] [facility] [place] [address], [facility] Nucleated RBC/100 WBC (Bld) [Ratio] 0 % Normal 0-0 [facility] Comment on above: Order Comment: No: D o not add to previous draw Performed By: #### 5 0608 #### [facility] [address] [facility] [place] [id number], [facility] PLAT CNT 258 10*3/uL Normal 150-400 [facility] Comment on above: Order Comment: No: D o not add to previous draw Performed By: #### 5 0608 #### [facility] [address] [facility]. [place] [id number], [facility] RBC (Bld) [#/Vol] 4.24 10*6/uL Normal 3.80-5.00 [facility] Comment on above: Order Comment: No: D o not add to previous draw Performed By: #### 5 0608 #### [facility] [address] [place] [address], [facility] WBC (Bld) [#/Vol] 10.20 10*3/uL Normal 4.00-10.60 [facility] Comment on above: Order Comment: No: D o not add to previous draw Performed By: #### 5 0608 #### [facility] [address] [facility]. [address] MAGNESIUM BLOODon 08-10-2021 Magnesium [Mass/Vol] 2.2 mg/dL Normal 1.9-2.7 [facility] Comment on above: Order Comment: No: D o not add to previous draw Performed By: #### 1 0070, [id number] #### [facility] [address] APTTon 08-09-2021 aPTT Coag (Bld) [Time] 26.9 s Normal 25.0-35.0 [facility] Comment on above: Result Comment: ALL RESULTS [...] THIS PURPOSE. Performed By: #### 5 6101, [id number] #### [facility] [address] [facility] [place] [address], [facility] CBC W/DIFFon 08-09-2021 ABS IMM GRANS 0.0 10*3/uL Normal 0.0-0.2 [facility] Comment on above: Performed By: #### 5 0103 #### [facility] [address] [facility] [place] [address], [facility] ABS NEUTROPHILS 5.1 10*3/uL Normal 1.6-7.6 [facility] Comment on above: Performed By: #### 5 0103 #### [facility] [address] [facility] [place] [address], [facility] Basophils (Bld) [#/Vol] 0.0 10*3/uL Normal 0.0-0.2 [facility] Comment on above: Performed By: #### 5 0103 #### [facility] [address] [place] [address], [facility] Basophils/100 WBC (Bld) 0.4 % Normal 0.0-1.0 [facility] Comment on above: Performed By: #### 5 0103 #### [facility] [address] [facility] [place] [address], [facility] Eosinophils (Bld) [#/Vol] 0.2 10*3/uL Normal 0.0-0.5 [facility] Comment on above: Performed By: #### 5 0103 #### [facility] [address] [place] [address], [facility] Eosinophils/100 WBC (Bld) 2.3 % Normal 0.0-6.0 [facility] Comment on above: Performed By: #### 5 0103 #### [facility] [address] [facility] [place] [address], [facility] Erythrocyte distribution width (RBC) [Ratio] 15.3 % High 11.5-15.0 [facility] Comment on above: Performed By: #### 5 0103 #### [facility] [address] [facility] [place] [address], [facility] Hematocrit (Bld) [Volume fraction] 37.4 % Normal 36.0-45.0 [facility] Comment on above: Performed By: #### 5 0103 #### [facility] [address] [facility] [place] [address], [facility] Hemoglobin (Bld) [Mass/Vol] 11.5 g/dL Low 12.0-15.0 [facility] Comment on above: Performed By: #### 5 0103 #### [facility] [address] [place] [address], [facility] IMMATURE GRANS 0.3 % Normal 0.0-1.0 [facility] Comment on above: Performed By: #### 5 0103 #### [facility] [address] [facility] [place] [address], [facility] Lymphocytes (Bld) [#/Vol] 1.1 10*3/uL Low 1.2-4.0 [facility] Comment on above: Performed By: #### 5 0103 #### [facility] [address] [facility] [place] [address], [facility] Lymphocytes/100 WBC (Bld) 16.1 % Low 20.0-45.0 [facility] Comment on above: Performed By: #### 5 3 #### [facility] [address] MCH (RBC) [Entitic mass] 26.9 pg Low 27.0-33.0 [facility] Comment on above: Performed By: #### 5 3 #### [facility] [address] MCHC (RBC) [Mass/Vol] 30.7 g/dL Low 32.0-35.0 [facility] Comment on above: Performed By: #### 5 3 #### [facility] [address] [place] [address], [facility] MCV (RBC) [Entitic vol] 87.4 fL Normal 82.0-98.0 [facility] Comment on above: Performed By: #### 5 3 #### [facility] [address] [place] [address], [facility] Monocytes (Bld) [#/Vol] 0.6 10*3/uL Normal 0.1-1.0 [facility] Comment on above: Performed By: #### 5 102 #### [facility] [address] [place] [address], [facility] MONOS 8.8 % Normal 5.0-12.0 [facility] Comment on above: Performed By: #### 102 #### [facility] [address] [place] [address], [facility] Neutrophils/100 WBC (Bld) 72.1 % High 40.0-72.0 [facility] Comment on above: Performed By: #### 102 #### [facility] [address] [facility] [place] [address], [facility] Nucleated RBC/100 WBC (Bld) [Ratio] 0 % Normal 0-0 [facility] Comment on above: Performed By: #### 102 #### [facility] [address] [facility] [place] [address], [facility] PLAT CNT 271 10*3/uL Normal 150-400 [facility] Comment on above: Performed By: #### 102 #### [facility] [address] [facility] [place] [address], [facility] RBC (Bld) [#/Vol] 4.28 10*6/uL Normal 3.80-5.00 [facility] Comment on above: Performed By: #### 102 #### [facility] [address] [facility] [place] [address], [facility] WBC (Bld) [#/Vol] 7.02 10*3/uL Normal 4.00-10.60 [facility] Comment on above: Performed By: #### 102 #### [facility] [address] COMP METABOLIC PANELon 08-09 Albumin [Mass/Vol] 3.8 g/dL Normal 3.5-5.7 [facility] Comment on above: Performed By: #### 0 012 #### [facility] [address] [facility] [place] [address], [facility] ALKALINE PHOSPH 140 IU/L High 34-104 [facility] Comment on above: Performed By: #### 0 0121 #### [facility] [address] [place] [address], [place] ALT [Catalytic activity/Vol] 13 U/L Normal 7-52 [facility] Comment on above: Performed By: #### 0 0121 #### [facility] [address] [place] [address], [place] AST [Catalytic activity/Vol] 17 U/L Normal 13-39 [facility] Comment on above: Performed By: #### 0 0121 #### [facility] [address] [place] [address], [place] Bilirubin [Mass/Vol] 0.5 mg/dL Normal 0.3-1.0 [facility] Comment on above: Performed By: #### 0 0121 #### [facility] [address] [place] [address], [place] Calcium [Mass/Vol] 8.7 mg/dL Normal 8.6-10.3 [facility] Comment on above: Performed By: #### 0 0121 #### [facility] [address] [place] [address], [place] Chloride [Moles/Vol] 104 mmol/L Normal 98-107 [facility] Comment on above: Performed By: #### 0 0121 #### [facility] [address] [place] [address], [place] CO2 [Moles/Vol] 28 mmol/L Normal 21-31 [facility] Comment on above: Performed By: #### 0 0121 #### [facility] [address] [place] [address], [place] Creatinine [Mass/Vol] 0.74 mg/dL Normal 0.60-1.20 [facility] Comment on above: Performed By: #### 0 0121 #### [facility] [address] [place] [address], [place] GFR/1.73 sq M.predicted among blacks MDRD (S/P/Bld) [Vol rate/Area] mL/min/{1.73_m2} Normal >60 [facility] Comment on above: Performed By: #### 0 0121 #### [facility] [address] [place] [address], [facility] GFR/1.73 sq M.predicted among non-blacks MDRD (S/P/Bld) [Vol rate/Area] mL/min/{1.73_m2} Normal >60 [facility] Comment on above: Performed By: #### 0 0121 #### [facility] [address] [place] [address], [facility] Glucose [Mass/Vol] 116 mg/dL High 70-100 [facility] Comment on above: Performed By: #### 0 0121 #### [facility] [address] [place] [address], [facility] Potassium [Moles/Vol] 3.9 mmol/L Normal 3.5-5.1 [facility] Comment on above: Performed By: #### 0 0121 #### [facility] [address] [place] [id number], [facility] Protein [Mass/Vol] 6.4 g/dL Normal 6.0-8.3 [facility] Comment on above: Performed By: #### 0 0121 #### [facility] [address] [place] [address], [facility] Sodium [Moles/Vol] 138 mmol/L Normal 136-145 [facility] Comment on above: Performed By: #### 0 0121 #### [facility] [address] [place] [address], [facility] Urea nitrogen [Mass/Vol] 10 mg/dL Normal 7-25 [facility] Comment on above: Performed By: #### 0 0121 #### [facility] [address] [place] [id number] Cardiovascular Lab Reporton 08-09-2021 Cardiovascular Lab Report [facility] Patient Name: Angie Watt [facility] MR #: [id number] Physician: Charli Pulido MD Department of Service Date: 08/09/2021 Medicine Birthdate: 1950 Division of Room #: 3CD [id number] Cardiology Adult Cardiovascular Services [facility] [address] [place] [id number] Cardiovascular Laboratory Report ATRIAL FIBRILLATION ABLATION PROCEDURE [...] in Afib. Esophagus was mapped using the SmartFocusUND 3D mapping software with quadripolar catheter and [...] perform (more content not included)... Normal [facility] POC GLUCOSE LABon 08-09-2021 Glucose [Mass/Vol] 107 mg/dL High 70-100 [facility] Comment on above: Performed By: #### 8 5499 #### [facility] [address] [place] [address], [facility] PROTHROMBIN TIMEon INR Coag (PPP) [Relative time] 1.01 {INR} Normal 0.91-1.16 [facility] Comment on above: Result Comment: ACCC P [...] CHEST 1995;108:231S-246S. Performed By: #### 5 6101, 44703 #### [facility] [address] [place] [address], [facility] PT Coag (PPP) [Time] 13.3 s Normal 12.3-14.8 [facility] Comment on above: Result Comment: ALL RESULTS MUST BE INTERPRETED WITH RESPECT TO BLOOD DRAWING ARTIFACT OR DILUTION ERROR OF ANTICOAGULANT AT THE TIME OF SAMPLING. Performed By: #### 5 0691, [address]9729 #### [address] [address], [facility] CTA CHESTon 08-08-2021 CTA CHEST [facility] Department of Radiology [address] [place] [id number] ======== Patient Name: ANGIE WATT : [...] examination. Electronically signed: Audrey Umana. Transcribed by: [email or web address], User Resident: Electronically Signed by: AUDREY UMANA @ 08/08/2021 03:05 PM Normal [facility] Comment on above: Order Comment: Gavin Ablation 08/09/21 Covid-19 PCR (CVDTB)on 05-18 SARS-CoV-2 (COVID-19) RNA SP+probe Ql (Unsp spec) Not detected Normal NOT DETECTED [facility] Comment on above: Result Comment: This test is not yet approved or cleared by the [place] FDA. When there are no FDA-approved or cleared tests available, and other criteria are met, FDA can make tests available under an emergency access mechanism called an Emergency Use Authorization (EUA). The EUA for this test is supported by the [place] of Health and Human Service's (HHS's) declaration [...] Performed By: #### C [facility] #### [facility] [address] [place] [address] Dr. Maik Singleton Vital Signs Date Time Vital Sign Value Performing Clinician Gustabo burris 01-21-2024 14:18-0400 Blood Pressure Location [employer] [facility] 01-21-2024 14:18-0400 Diastolic blood pressure 78 mm[Hg] Pasha [employer] [facility] 01-21-2024 14:18-0400 Heart rate 72 /min Pasha PETERL [facility] 01-21-2024 14:18-0400 Respiratory rate 16 /min Pasha PETERL [facility] 01-21-2024 14:18-0400 Systolic blood pressure 136 mm[Hg] Pasha BACH [facility] Encounters Encounter Date Encounter Type Care Provider Facility Start: 02-11-2024 ambulatory SAIDA LAI [facility] Start: 01-29-2024 [facility] Start: 01-29-2024 Evaluation and manag ement of inpatient IRMA SIMMONSLEY [facility] Start: 01-28-2024 End: 02-02-2024 Evaluation and management of inpatient KERRI SMITH [facility] Start: 01-21-2024 End: 01-21-2024 ambulatory Pasha BACH Facility:[facility] Start: 01-21-2024 End: 01-21-2024 Patient encounter procedure Pasha BACH [facility] Start: 12-24-2023 ambulatory RIZWANA CONNORS [facility] Start: 11-26-2023 ambulatory Pasha BACH Facility:[facility] Start: 11-21-2023 Evaluation and manag ement of inpatient [facility] Start: 11-20-2023 Evaluation and manag ement of inpatient ROHIT DELCID [facility] Start: 11-20-2023 End: 11-22-2023 Evaluation and management of inpatient EDUARDO WALKER [facility] Start: 06-18-2023 End: 06-18-2023 ambulatory LISSA [facility] Start: 03-07-2022 End: 03-07-[address] KERRI SMITH Facility: Start: 08-09-2021 End: 08-10-2021 ambulatory KERRI SMITH Facility:[facility] Start: 06-18-2021 Encounter for preprocedural laboratory examination CHARLI PULIDO [facility] Start: 06-14-2021 End: 06-14-[address] DOCTOR DIXON Facility:[facility] Start: 06-12-2021 End: 06-12-2021 ambulatory CHARLI PULIDO Facility:[facility] Start: 06-12-2021 End: 06-12-2021 Encounter for preprocedural laboratory examination CHARLI PULIDO Facility:[facility] Procedures Date Procedure Procedure Detail Performing Clinician Cardiac radiofrequen cy ablation using ultrasound guidance Pasha BACH Cholecystectomy Pasha BACH Immunizations Immunization Date Immunization Notes Care Provider Fa cili 04-11-2022 SARS-CoV-2 mRNA (wrxjrsestgb-yggt-qrkub se) vaccine Pasha BACH [facility] Comment on above: Result Comment: 2023: [id number] 02-14-2022 SARS-CoV-2 mRNA (lrlryawfgnh-ixvz-atmex se) vaccine Pasha BACH [facility] Comment on above: Result Comment: 2023: [id number] Payers Date Payer Category Payer Medicare [id number] 1959 Private Health Insurance [id number] 1950 Unknown [id number] [id number] 1950 Unknown [id number] [id number] [id number] 1950 Unknown [id number] [id number] [id number] 1950 Unknown [id number] [id number] [id number] 1950 Unknown [id number] 2.16.8 [id number] Social History Date Type Detail Facility Start: 01-21-2024 Tobacco smoking status Ex-smoker (fi nding) [facility] Tobacco smoking status Never [facility] Sex Assigned At Female [facility] Functional Status Date Assessment Result Facility 01-21-2024 Functional Status N/A [facility] Clinical Notes 06-14-2021 to 02-12-2024 Note Date & Type Note Facility 02-12-2024 Note RCRI=2 points Class III Risk 10.1 % 30-day risk of , IA, or cardiac arrest From a cardiac perspective [...] prevent any major fluid shifts. Rizwana Connors [facility] Cardiology Available 7a-5pm via Integrate Chat Pager [phone] [facility] 02-11-2024 Note Subjective Patient ID: Angie Watt [...] past 36 hour(s)). No follow-ups on file. [facility] 02-10-2024 Note General Surgery Offi ce/Clinic Note Chief Complaint consultation for diverticulitis HPI Staff 73 year old female presents on consultation from Dr. Smith for diverticulitis. Presented to [place] ED 11/19/23 with complaint of abdominal pain and nausea. CT ABD with sigmoid diverticulitis with concern for possible megacolon. Patient was transferred to [place] with symptomatic care provided during hospital stay. Never had colonoscopy in the past. On Eliquis for a.fib. Reports two additional episodes of abdominal pain, constipation and nausea since discharge from [place]. Both episodes she presented to [place] ED with CT's completed both times. History of Present Illness 73 yo female with h/o atrial fibrillation, on Eliquis, DMII, htn, hyperlipidemia, hypothyroidism, KYLEE, chronic diverticular disease, referred for recurrent diverticulitis with possible diverticular stricture verses colonic mass; patient has had problems since October; was in [place] ED 11/19/23 had abd/pelvic ct scan with evidence of sigmoid diverticulitis and dilated proximal colon; transferred to [facility]; reportedly treated with antibiotics and discharged; patient [...] BMI 40.0-44.9, ad (more content not included)... [facility] Comment on above: Result Comment: [...] 's note and agree with the documentation [facility] General Surgery DAILY PROGRESS NOTE Subjective Today [...] L4-L5. Impression: *Circum (more content not included)... [facility] 02-02-2024 Note Hospital Medicine Discharge Summary Final [...] and Anxiety. She has been sent from [place] where she was admitted on January 26 [...] Admission: General Surgery Dear Dr. Nuzhat MD, [place] is advised to follow up with you [...] [facility] Hospit (more content not included)... [facility] 02-01-2024 Note Attestation signed by Clyde Wayne MD at 02/02/2024 8:21 AM GC: I saw this patient. I personally was physically present for the critical/king portions that determines the level of service. I was directly involved in the management and treatment plan of the patient. I reviewed resident Italo Stewart MD 's note and agree with the documentation [facility] General Surgery DAILY PROGRESS NOTE Subjective S/p [...] up to 2. (more content not included)... [facility] 02-01-2024 Note Hospital Medicine Daily Progress Note - 02/01/2024 11:38 AM; Room: [address] [place] [address] Admission: 01/28/2024 6:04 PM; Length of stay: 4 days THE HOSPITALIST TEAM PREFERS TO USE [employer] CHAT FOR COMMUNICATION 7AM-7PM. IF I DO NOT RESPOND WITHIN 15 MINUTES, PLEASE PAGE ME/CALL THROUGH THE [employer] PIPE SUPERVISOR. FROM 7PM-7AM, PLEASE PAGE [phone](COVR) Code Status: Full Code Barriers to Discharge: [...] , FREET4 , CORTISOL , FEV1 , DNR8IEF , DLCO , RVSP , HDL , [...] a separate workstat (more content not included)... [facility] 01-31-2024 Note Patient: Angie Watt Procedure Summary Date: 01/31/24 Room / Location: [facility] OPERATING ROOM 01 / [facility] Operating Room Anesthesia Start: 162 Anesthesia Stop: [...] per anesthesia protocol. No notable events documented. [facility] 01-31-2024 Note Patient: Angie Watt Procedure Summary Date: 01/31/24 Room / Location: [facility] OPERATING ROOM 01 / [facility] Operating Room Anesthesia Start: 1628 Anesthesia Stop: Procedure: COLONOSCOPY Diagnosis: Stricture of colon (CMS/HCC) (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]) Surgeons: Saida Lai MD Responsible Provider: Reagan Ortiz MD Anesthesia Type: MAC ASA Status: 3 Anesthesia Post Transport Note Transport to: PACU O2 Route: room air Patient Monitor: direct observation Transport: uneventful Patient condition is: stable [facility] 01-31-2024 Note Patient: Angie Watt Procedure Information Date/Time: 01/31/24 1530 Procedure: COLONOSCOPY Location: [facility] OPERATING ROOM 01 / [facility] Operating Room Surgeons: Saida Lai MD Past [...] Plan discussed with CAA. Additional Equipment Requests [facility] 01-31-2024 Note 01/31/24 0273 Admission Assessment Questions Verify insurance with patient [...] Status Interested Does the patient have a counseling case manager assigned to them through their [...] activate MyChart? Yes (email link sent to: [email or web address]) Screen completed with patient & daughter China present at bedside. Await medical stability : ?weekend dc pending results of today's Scope, Colonoscopy today, Nyasia on hold. Dc Plan : return Home, no needs. Daughter will transport home; Agreeable to iMeds. [facility] 01-31-2024 Note Attestation signed by Saida Lai MD at 01/31/2024 7:02 PM Attending Physician Statement I have discussed the case, including pertinent history and exam findings with Dr. Caruso, residential monitor and have personally seen the patient. I agree with the assessment, plan and orders as documented. [phone] pager [phone] phone [facility] General Surgery DAILY PROGRESS NOTE Subjective No [...] for malignancy. Colonosc (more content not included)... [facility] 01-31-2024 Note Hospital Medicine Daily Progress Note - 01/31/2024 8:21 AM; Room: [address] [place] [address] Admission: 01/28/2024 6:04 PM; Length of stay: 3 days THE HOSPITALIST TEAM PREFERS TO USE [employer] CHAT FOR COMMUNICATION 7AM-7PM. IF I DO NOT RESPOND WITHIN 15 MINUTES, PLEASE PAGE ME/CALL THROUGH THE [employer] PIPE SUPERVISOR. FROM 7PM-7AM, PLEASE PAGE [phone](COVR) Code Status: Full Code Barriers to Discharge: Colonoscopy today, Eliquis Held Expected Discharge Date: 1 day Discharge Destination: home Overview Patient is seen for evaluation and management of constipation with abdominal CT concerning for metastatic colon cancer. Subjective Ms. Angie Watt is a 73 year old female who was admitted from [place] with a chief complaint of more than [...] oral, Daily beltran (more content not included)... [facility] 01-30-2024 Note Spiritual Care Note Patient name: Angie Watt Age: 73 y.o. Room: [address] [place] [address]- Angie has a good attitude but expressed [...] Hopeful;Frustrated Pastoral Intervention Emotional support Response Encouraged;Hopeful [facility] 01-30-2024 Note Hospital Medicine Daily Progress Note - 01/30/2024 9:02 AM; Room: [address] [place] [address] Admission: 01/28/2024 6:04 PM; Length of stay: 2 days THE HOSPITALIST TEAM PREFERS TO USE [employer] FOR COMMUNICATION 7AM-7PM. IF I DO NOT RESPOND WITHIN 15 MINUTES, PLEASE PAGE ME/CALL THROUGH THE [employer] PIPE SUPERVISOR. FROM 7PM-7AM, PLEASE PAGE [phone](COVR) Code Status: Full Code Barriers to Discharge: IV fluids, Need to restart OAC Expected Discharge Date: 1 day Discharge Destination: home Overview Patient is seen for evaluation and management of constipation with abdominal CT concerning for metastatic colon cancer. Subjective Ms. Angie Watt is a 73 year old female who was admitted from [place] with a chief complaint of more than [...] will defer to (more content not included)... [facility] 01-30-2024 Note Attestation signed by Saida Lai MD at 01/31/2024 10:05 AM Attending Physician Statement I have discussed the case, including pertinent history and exam findings with Dr. Stewart, residential monitor and have personally seen the patient. I agree with the assessment, plan and orders as documented. See the full colonoscopy on January 31, 2024. [phone] pager [phone] phone [facility] General Surgery DAILY PROGRESS NOTE Subjective NAEON, [...] *Segment 4 hep (more content not included)... [facility] 01-29-2024 Note Attestation signed by Saida Lai MD at 01/31/2024 10:04 AM Attending Physician Statement I have discussed the case, including pertinent history and exam findings with Dr. Stewart, residential monitor and have personally seen the patient. I agree with the assessment, plan and orders as documented. Proceed for colonoscopy on January 31, 2024. [phone] pager [phone] phone [facility] General Surgery DAILY PROGRESS NOTE Subjective NAEON, [...] 3.6 cm. Fusiform (more content not included)... [facility] 01-29-2024 Note Hospital Medicine History and Physical 01/29/2024 1:08 AM THE HOSPITALIST TEAM PREFERS TO USE [employer] FOR COMMUNICATION 7AM-7PM. IF I DO NOT RESPOND WITHIN 15 MINUTES, PLEASE PAGE ME/CALL THROUGH THE [employer] PIPE SUPERVISOR. FROM 7PM-7AM, PLEASE PAGE [phone](COVR) Chief Complaint No chief complaint on file. History of Present Illness Angie Watt is an 73 y.o. female admitted from [place] with chief complaint of diffuse abdominal discomfort bloating and nausea since more than a week pain generalized all over her belly nonradiating had constipation since past 4 to 5 days has been having persistent nausea worse with eating but no vomiting patient was seen in the ER at [place] had workup done including CBC which showed [...] hospital who recommended patient be transferred to [facility]. At the time of examination patient [...] this hospital stay by a member of [facility]. Past Medical History Past Medical History: Diagnosis Date Abnormal ECG Arrhythmia Atrial fibrillation (CMS/HCC) Hypertension Hypothyroidism Paroxysmal atrial fibrillation (CMS/HCC) 05/15/2022 Sleep apnea P (more content not included)... [facility] 12-24-2023 Note Hypertension is unch anged. Continue current medications. Blood pressure will be reassessed at the next regular appointment Continue to monitor at home- goal is < 130/80. [facility] 12-24-2023 Note [facility] CARDIOLOGY PROGR ESS NOTE HPI: Angie Watt is a 73 y.o. female here for routine F/U HPI 73 y.o. year old with past medical history of A-fib s/p PVI as well as posterior box isolation 07/2021, hypertension, HFpEF, anxiety. B/P at home 130-135/ 70-80 No episodes of A fib/flutter since last visit- she monitor with [employer]. Denied chest pain, SOB, orthopnea, palpitations. Recently was admitted for acute diverticulitis at [facility]. Previous HPI per [place] SPENCER np [...] PMHx: a.fib; HTN, anxiety FMHx: father - [place]; sister - a.fib; father - a.fib Echocardiogram [...] Dorsalis pedis pulses (more content not included)... [facility] 12-24-2023 Note Patient here for 6 m [...] All other systems reviewed and are negative. [facility] 12-24-2023 Note [id number]= 3- age , Female, HTN Recent EKG sinus rhythm 11/20/23 - continues amiodarone 100mg daily, coreg and diltiazem -s/p PVI ([facility]) + Superior roof and Inferior line (posterior box isolation) + CTI 07/2021 -Continue yearly eye exams, and CXR/TSH/LFTs annually- pt refuses q 6months [facility] 11-22-2023 Note [facility] General Surgery DAILY PROGRESS NOTE Subjective Observed [...] Casey Tanner MD PGY-1 General Surgery Resident [facility] 11-22-2023 Note Problem: Pain Goal: LTG-Verbalize decrease [...] and behaviors that affect risk of falls [place] fall precautions as indicated by assessment Educate [...] exacerbated and prevent overall improvement and discharge [facility] 11-21-2023 Note Attestation signed by Saida Lai MD at 11/23/2023 2:06 PM Attending Physician Statement I have discussed the case, including pertinent history and exam findings with Dr. Tanner, residential monitor and have personally seen the patient. I agree with the assessment, plan and orders as documented. [phone] pager [phone] phone [facility] Surgery DAILY PROGRESS NOTE Subjective NAEO. [...] 11/21 Casey Tanner MD General Surgery Resident, PGY-1 I can be reached via [email or web address] 6a-6p [facility] 11-20-2023 Note Problem: Pain Goal: LTG-Verbalize decrease in pain Outcome: Progressing Goal: LTG-Demostrate that the pain does not impair ADLs Outcome: Progressing Goal: STG-Pt will verbalize decreased discomfort Outcome: Progressing [facility] 11-20-2023 Note 11/20/23 1129 Referral Data Referral Source farmworker general (Screened via RU) Patient Information Primary Caregiver [...] need discharge transport arranged? Maybe Screened via [facility]. Patient is from home, with daughter, and reports goal to return at discharge. She endorses utilization of a shower chair, walker, and CPAP at night. [facility] 11-20-2023 Note 11/20/23 0946 Admission Assessment Questions [...] Discharge? Yes Does the patient have a counseling case manager assigned to them through their [...] to send link and activate MyChart? No [facility] 06-18-2023 Note [place] Electrophysiology Consult Note Reason for visit: AF [...] PMHx: a.fib; HTN, anxiety FMHx: father - [place]; sister - a.fib; father - a.fib Echocardiogram [...] No current facilit (more content not included)... [facility] 06-18-2023 Note Patient here for 6 m [...] All other systems reviewed and are negative. [facility] 06-14-2021 Note [facility] [place], [place] NAME: ANGIE WATT A DATE OF : MEDICAL REC#: [id number] RIGGING LOFT REPAIRER: CASSIE DOMINGUEZ ADMIT DATE: 06/14/2021 08:37:00 COOLER ROOM WORKER DATE: 06/20/2021 08:00 DICTATING PHYSICIAN: CHARLI PULIDO DICTATION DATE: 06/14/2021 18:00 duplicate entry Electronically Authenticated and Edited by: Charli Pulido MD on 12/05/2021 07:50 PM EDT The [place], [place] NAME: ANGIE WATT A DATE OF : MEDICAL REC#: [id number] RIGGING LOFT REPAIRER: CASSIE DOMINGUEZ ADMIT DATE: 06/14/2021 08:37:00 COOLER ROOM WORKER DATE: 06/20/2021 08:00 DICTATING PHYSICIAN: CHARLI PULIDO [...] in an anterior/posterior direction. 360 joules of Dent's cardioversion on two occasions did not convert [...] Approved by: CHARLI PULIDO 12/05/2021 19:42:00 The [place] Evaluation + Plan note No data available for this section [facility] Hospital Discharge instructions No data available for this section [facility] Progress note No data available for this section [facility] Summary Purpose Family History No Family History Records FoundNo Family History Records Found No data available for this section No Family History Records FoundNo Family History Records Found Advance Directives No Advanced Directives Records FoundNo Advanced Directives Records FoundNo Advanced Directives Records FoundNo Advanced Directives Records Found Additional Source Comments INFORMATION SOURCE (unrecogn ized section and content) DATE CREATED AUTHOR 08/17/2021 [facility] DATE CREATED AUTHOR AUTHOR'S ORGANIZ ATION 05/19/2022 [facility] DATE CREATED AUTHOR AUTHOR'S ORGANIZ ATION 02/11/2024 [facility] DATE CREATED AUTHOR AUTHOR'S ORGANIZ ATION 02/15/2024 [facility] Patient Care team informatio n (unrecognized section and content) Personnel Name: Kerri Smith MD Address: Address: [address] [place] [address] FOR RECORDS PERTAINING TO PATIENTS WHO ARE [...] BE BASED ON THE PRIMARY CLINICAL RECORDS. [employer] [facility]. provides no warranty or guarantee of the accuracy or completeness of information in this document.
--- NOTE | 2024-03-17 18:23 | PC.NURSE ---
bedside report given to Betty AGUDELO, all questions answered.
[2024-03-17] MEDS: LACTATED RINGER'S SOLUTION 1,000 ML 125 ML IV (18:52)
--- NOTE | 2024-03-17 21:45 | P.HP_ITS ---
HPI H&P: HPI History of Present Illness Chief complaint: NAUSEA/VOMITTING Constipation Narrative: 73 y o female has colonic stricture who is being scheduled for elective surgery for it end of March, presented to ED today with nausea, 2-3 episodes of vomiting and generalized abdominal distention/pain. Patient reports that she has not passed BM for 5 days. She is also not passing gas and she feels that her abd is distended. She was recently discharged from the hospital during which time she was treated for colitis associated with sigmoid stricture. Upon evaluation in ED, she had a normal leukocyte count, and had no sig abnormal finding on labs. CT abd showed diffuse colonic distention and thickening suggestive of colitis and ileus. While ileus is certainly a new finding, colitis seen on CT does not seem to be new and likely due to chronic obstruction from sigmoid s tenosis. Her case was d/w Surgery at [facility] who recommended medical management/conservative care and transfer to [facility] if she does not improve with conservative measures. Patient was comfortable at the time of my evaluation and had little to no abdominal pain on exam. Opioid HPI Opioid Management Most Recent Pain and Opioid Data: Last Pain Scale 7 03/17/24 16:10 Last Pain Assessment 03/12/24 11:00 Last MAR Pain Assessment 03/17/24 16:10 Last ORT Total Score 0 03/17/24 18:15 Last ORT Risk Category Low Risk 03/17/24 18:15 Review of Systems ROS Status of ROS 10 or more systems reviewed and unremark able except as noted in history and below [facility] Medical History (Updated 03/17/24 @ 21:56 by Shaikh Tyler MD) Abdominal pain ?R10.9 - Unspecified abdominal pain (ICD-10) Abdominal pain ?R10.9 - Unspecified abdominal pain (ICD-10) Partial bowel obstruction ?K56.600 - Partial intestinal obstruction, unspecified as to cause (ICD-10) Partial obstruction of colon ?K56.600 - Partial intestinal obstruction, unspecified as to cause (ICD-10) Diverticulitis ?K57.92 - Diverticulitis of intestine, part unspecified, without perforation or abscess without bleeding (ICD-10) Hypertension ?I10 - Essential (primary) hypertension (ICD-10) A-fib ?I48.91 - Unspecified atrial fibrillation (ICD-10) Acute diverticulitis ?K57.92 - Diverticulitis of intestine, part unspecified, without perforation or abscess without bleeding (ICD-10) Abdominal pain ?R10.9 - Unspecified abdominal pain (ICD-10) Surgical History History of cholecystectomy ?Z90.49 - Acquired absence of other specified parts of digestive tract (ICD- 10) Family History Sister Family history of hypertension Father Family history of myocardial infarction Social History Within the past year, how often did you have a drink containing alcohol: never Within the past year, how often did you have six or more drinks on one occasion: never Score interpretation: A score less than 3 is consistent with normal alcohol consumption. Smoking status: Former smoker Non-prescribed substance use: denies use Previous occupational history: retired Highest level of school completed/degree received: 10th grade Are you now , , , , never or living with a partner: In a typical week, how many times do you talk on the telephone with family, friends, or neighbors: 3 or more times per week How often do you get together with friends or relatives: twice per week How often do you attend faith or restoration services: 4 or more times per year Do you belong to any clubs or organizations such as faith groups unions, fraternal or athletic groups, or school groups: no Total score: 2 Score interpretation: A score of greater than or equal to 2 indicates the lowest level of social isolation. Little interest or pleasure in doing things: not at all Feeling down, depressed, or hopeless: not at all Feel stressed/tense/nervous/anxious/difficulty sleeping: not at all Do you think of yourself as: straight/heterosexual Gender Identity: female Meds Home Medications and Allergies Home Medications ?Medication ?Instructions ?Recorded ?Confirmed ?Type amiodarone 100 mg tablet 100 mg PO DAILY 11/19/23 03/17/24 History apixaban 5 mg tablet (Eliquis) 5 mg PO Q12H 11/19/23 03/17/24 History carvedilol 6.25 mg tablet 6.25 mg PO Q12H 11/19/23 03/17/24 History doxepin 25 mg capsule 50 mg PO .pm 11/19/23 03/17/24 History levothyroxine 50 mcg tablet 50 mcg PO DAILY 11/19/23 03/17/24 History omeprazole 40 mg capsule,delayed 40 mg PO DAILY 11/19/23 03/17/24 History release amoxicillin 500 mg capsule 1,000 mg PO BID 03/17/24 03/17/24 History amoxicillin 875 mg-potassium 1 tab PO BID 03/17/24 03/17/24 History clavulanate 125 mg tablet Allergies Allergy/AdvReac Type Severity Reaction Status Date / Time No Known Drug Allergies Allergy Verified 03/08/24 13:19 Exam Constitutional Vital Signs, click to edit/add: Last Vital Signs Temp 98.4 F 03/17/24 18:25 Pulse 83 03/17/24 18:25 Resp 20 03/17/24 18:25 BP 146/83 H 03/17/24 18:25 Pulse Ox 93 L 03/17/24 20:04 O2 Del Method Room Air 03/17/24 20:04 General appearance: cooperative and comfortable Nutritional appearance: obese HENMT Common normals: normocephalic and head/scalp atraumatic Respiratory Common normals: normal respiratory effort, no use of accessory muscles and clear to auscultation bilaterally Effort & inspection: able to speak in complete sentences Cardio Common normals: no JVD, regular rate, regular rhythm, S1 normal heart sound and S2 normal heart sound GI Common normals: Normal to inspection, nondistended, normoactive bowel sounds present, soft to palpation and non-tender Inspection: abdominal distension Extremity Common normals: normal to inspection and full ROM Neuro Common normals: oriented x3, moves all extremities and no focal motor deficits Psych Common normals: mental status grossly normal, thought process normal, denies hallucinations and denies homicidal ideation Results Labs Labs: Short CBC 03/17/24 Range/Units 14:25 WBC 9.4 (4.0-11.0) 10^3/uL Hgb 11.2 L (12.0-16.0) g/dL Hct 34.8 L (36.0-48.0) % Plt Count 460 H (150-450) 10^3/uL BMP 03/17/24 14:25 Sodium 136 Potassium 3.6 Chloride 99 Carbon Dioxide 24.5 BUN 5.0 L Creatinine 0.92 Glucose 123 H Calcium 9.3 Liver Function 03/17/24 Range/Units 14:25 Total Bilirubin 0.6 (0.2-1.0) mg/dL AST 34 (15-37) U/L ALT 57 (14-59) U/L Alkaline Phosphatase 101 (46-116) U/L Albumin 2.8 L (3.4-5.0) g/dL Assessment and Plan Assessment and Plan (1) Nausea and vomiting: Assessment and Plan: Likely from Ileus/superimposed on chronic partial obstruction. C/w Zofran as needed. Full Liquid diet for now Qualifiers: Vomiting type: unspecified Qualified Code(s): R11.2 - Nausea with vomiting, unspecified (2) Partial bowel obstruction: Assessment and Plan: Partial/chronic bowel obstruction from sigmoid stenosis. Conservative management for now. If no improvement, possible transfer to [facility]. Qualifiers: Intestinal obstruction type: other intestinal obstruction Qualified Code(s): K56.690 - Other partial intestinal obstruction (3) Hypertension: Assessment and Plan: Stable. Above goal. C/w home medications. IV hydralazine as needed Qualifiers: Hypertension type: primary hypertension Qualified Code(s): I10 - Essential (primary) hypertension (4) A-fib: Assessment and Plan: On Eliquis for stroke px. In NSR. Qualifiers: Atrial fibrillation type: paroxysmal Qualified Code(s): I48.0 - Paroxysmal atrial fibrillation (5) Paralytic ileus of large intestine: Assessment and Plan: Ileus of large bowel. Conservative measures for now. Full liquid diet for now. on IVF for hydration. Advance diet as tolerated. (6) Constipation: Assessment and Plan: From chronic colonic partial obstruction, worsened due to Ileus. Started on bow el regmen - colace, miralax and bisacodyl. Qualifiers: Constipation type: unspecified constipation type Qualified Code(s): K59.00 - Constipation, unspecified
[2024-03-17] MEDS: DOXEPIN HCL 25 MG CAPSULE 50 MG PO (22:05)
[2024-03-17] MEDS: APIXABAN 5 MG TABLET PO (22:05)
[2024-03-17] MEDS: CARVEDILOL 6.25 MG TABLET PO (22:05)
[2024-03-18] VITALS (7 sets, daily range): BP systolic 120–146; BP diastolic 68–82; PULSE 70–80; TEMP 36.8–36.9; O2SAT 94–95
[2024-03-18] MEDS: MAALOX (MAG HYDROX/ALUMINUM HYD/SIMETH) 30 ML ORAL.SUSP PO (03:04)
[2024-03-18] MEDS: LACTATED RINGER'S SOLUTION 1,000 ML 125 ML IV ×3 (03:12→18:36)
[2024-03-18] MEDS: LEVOTHYROXINE SODIUM 25 MCG TABLET 50 MCG PO (05:56)
[2024-03-18] MEDS: OMEPRAZOLE 40 MG CAPSULE.DR PO (05:56)
[2024-03-18] MEDS: OXYCODONE HCL 5 MG TABLET PO ×2 (06:01→20:51)
[2024-03-18 06:17] LABS: Bilirubin Urine SMALL (NEGATIVE); Blood Urine NEGATIVE (NEGATIVE); Clarity Urine CLEAR (CLEAR); Color Urine YELLOW (YELLOW); Glucose Urine UA NEGATIVE (NEGATIVE); Ketones Urine TRACE mg/dL (NEGATIVE); Leukocyte Esterase Urine NEGATIVE (NEGATIVE); Nitrite Urine NEGATIVE (NEGATIVE); Protein Urine TRACE mg/dL (NEG/TRACE); Urobilinogen Urine 0.2 EU/dL (0.2-1.0)
[2024-03-18 06:21] LABS: Urine Microscopic Indicated NO
[2024-03-18 06:22] LABS: Basophils Percent Auto 0.2 % (0.2-2.0); Eosinophils Absolute Auto 0.1 10^3/uL (0.0-0.7); Eosinophils Percent Auto 1.2 % (0.9-7.0); Hematocrit 31.4 % (36.0-48.0); Hemoglobin 9.9 g/dL (12.0-16.0); Immature Granulocytes Abs Auto 0.03 10^3/uL (0.00-0.03); Immature Granulocytes Pct Auto 0.3 % (0.0-0.5); Lymphocytes Absolute Auto 1.2 10^3/uL (1.2-3.8); Lymphocytes Percent Auto 13.6 % (20.5-60.0); Mean Corpuscular HGB Conc 31.5 g/dL (29.9-35.2); Mean Corpuscular Hemoglobin 27.2 pg (26.7-34.0); Mean Corpuscular Volume 86.3 fL (81.0-99.0); Mean Platelet Volume 9.9 fL (9.5-13.5); Monocytes Absolute Auto 0.7 10^3/uL (0.3-0.8); Monocytes Percent Auto 8.1 % (1.7-12.0); Neutrophils Percent Auto 76.6 % (43.0-75.0); Platelet Count 388 10^3/uL (150-450); Red Blood Count 3.64 10^6/uL (4.20-5.40); Red Cell Distribution Width 18.6 % (11.0-15.0); White Blood Count 9.1 10^3/uL (4.0-11.0)
[2024-03-18 06:40] LABS: Alanine Aminotransferase 43 U/L (14-59); Albumin Globulin Ratio 0.7; Albumin Level 2.4 g/dL (3.4-5.0); Alkaline Phosphatase 88 U/L (46-116); Anion Gap 8.9; Aspartate Amino Transferase 25 U/L (15-37); BUN Creatinine Ratio 6.7; Bilirubin Total 0.5 mg/dL (0.2-1.0); Calcium 8.7 mg/dL (8.5-10.1); Carbon Dioxide 29.5 mmol/L (21.0-32.0); Chloride 102 mmol/L (98-107); Estimated GFR (African America >60 (>=60 mL/min/1.73m^2); Estimated GFR (Non-African Ame >60 (>=60 mL/min/1.73m^2); Globulin 3.4 g/dL; Glucose 95 mg/dL (74-106); Potassium 3.4 mmol/L (3.5-5.1); Sodium 137 mmol/L (136-145); Total Protein 5.8 g/dL (6.4-8.2)
--- NOTE | 2024-03-18 07:48 | P.PN_ITS ---
Progress Note: Subjective Subjective Interval history: Patient well-known to me from long-term care at the office, and then recurrent hospitalizations due to diverticulitis with bowel obstruction. She was seen in the office 3 days ago after discharge from previous hospitalization, she is having increasing pain, no vomiting but just increasing pain and bloating. CT scan showed possible bowel obstruction, patient was not having any emesis at that time, she had emesis on the day of admission. Seen and evaluated in the emergency room. Her white blood cell count so far is remain normal but she still has acute abdominal findings and CT scans again the previous day consistent with active colitis. Patient does feel little bit better this morning since the emesis. But pain is persisting. Bloating is persisting. Exam Constitutional Vital Signs, click to edit/add: Last Vital Signs Temp 98.4 F 03/17/24 18:25 Pulse 80 03/17/24 20:00 Resp 17 03/17/24 20:00 BP 146/83 H 03/17/24 18:25 Pulse Ox 93 L 03/17/24 20:04 O2 Del Method Room Air 03/17/24 20:04 Documenting provider has reviewed patient's vital signs: yes Common normals: apparent distress (Mild to moderate painful distress) Chest Common normals: inspection of chest normal Respiratory Common normals: normal respiratory effort and no retractions Cardio Common normals: regular rate and regular rhythm GI Common normals: soft to palpation; negative for Normal to inspection, nondistended, normoactive bowel sounds present (Mild to moderate distention of the abdomen) and tender Palpation: tender Details: LLQ and suprapubic and rebound tenderness present (Rebound tenderness now present, this was not present in the office 3d prior) Extremity Common normals: normal to inspection and full ROM Progress Note: Objective Labs Labs: Short CBC 03/17/24 03/18/24 Range/Units 14:25 06:12 WBC 9.4 9.1 (4.0-11.0) 10^3/uL Hgb 11.2 L 9.9 L (12.0-16.0) g/dL Hct 34.8 L 31.4 L (36.0-48.0) % Plt Count 460 H 388 (150-450) 10^3/uL BMP 03/17/24 03/18/24 14:25 06:12 Sodium 136 137 Potassium 3.6 3.4 L Chloride 99 102 Carbon Dioxide 24.5 29.5 BUN 5.0 L 5.0 L Creatinine 0.92 0.75 Glucose 123 H 95 Calcium 9.3 8.7 Liver Function 03/17/24 03/18/24 Range/Units 14:25 06:12 Total Bilirubin 0.6 0.5 (0.2-1.0) mg/dL AST 34 25 (15-37) U/L ALT 57 43 (14-59) U/L Alkaline Phosphatase 101 88 (46-116) U/L Albumin 2.8 L 2.4 L (3.4-5.0) g/dL Urine 03/18/24 Range/Units 05:55 Urine Color Yellow (YELLOW) Urine Clarity Clear (CLEAR) Urine pH 6.0 (5.0-9.0) Ur Specific [place] 1.020 (1.005-1.025) Urine Protein Trace (NEG/TRACE) mg/dL Urine Glucose (UA) Negative (NEGATIVE) mg/dL Progress Note: A&P Assessment and Plan (1) Nausea and vomiting: Qualifiers: Vomiting type: unspecified Qualified Code(s): R11.2 - Nausea with vomiting, unspecified (2) Partial bowel obstruction: Qualifiers: Intestinal obstruction type: other intestinal obstruction Qualified Code(s): K56.690 - Other partial intestinal obstruction (3) Hypertension: Qualifiers: Hypertension type: primary hypertension Qualified Code(s): I10 - Essential (primary) hypertension (4) A-fib: Qualifiers: Atrial fibrillation type: paroxysmal Qualified Code(s): I48.0 - Paroxysmal atrial fibrillation (5) Paralytic ileus of large intestine: (6) Constipation: Qualifiers: Constipation type: unspecified constipation type Qualified Code(s): K59.00 - Constipation, unspecified Plan Admission findings: CT scan consistent with bowel obstruction and patient now with emesis Acute abdomen with obstruction: Patient now with acute abdominal findings with rebound tenderness which was not present 3 days prior. Restart IV antibiotics. Active colitis noted on CT scan. Her leukocytosis from previous admissions is still resolved. That does not preclude the fact that is still a localized infection. Start patient on IV Invanz. If patient not needing acute surgical intervention, would recommend long-term IV antibiotics until surgical resection of the colonic obstruction from acute and chronic diverticulitis. Patient has failed outpatient treatment on 3 occasions now with oral antibiotics. Place PICC line for long-term IV antibiotics. Check acute abdominal series to follow- up on obstruction. Constipation likely secondary to the obstruction-will check acute abdominal series, start lactulose. Hypertension: Stable here-continue with home medications A-fib: Rate controlled-continue with home medications Severe protein calorie malnutrition-patient has very poor p.o. intake since November. Hypokalemia-supplement Thrombocythemia likely secondary to the inflammation as outlined above, monitor daily Iron deficiency anemia secondary to poor p.o. intake-monitor daily Down somewhat today, check occult blood Hypothyroidism-continue home medications Admission status: Patient failed outpatient treatment with oral antibiotics. She can need long-term IV antibiotics. Bowel obstruction noted on CT scan done, will repeat a acute abdominal series today. Medically necessary treatment will span 2 midnights. Inpatient status. ?
--- NOTE | 2024-03-18 07:48 | XR_ITS ---
The [address] [address] Patient Name: ANGIE WATT MRN: [id number] date: 1950 Sex: F Assigned Patient Location: [place] Current Patient Location: [place] Accession/Order Number: [id number] Exam Date: 03/18/2024 08:04 Report Date: 03/18/2024 08:55 At the request of: KERRI NOLAND Procedure: XR acute abdomen series EXAMINATION: XR acute abdomen series HISTORY: bowel obstruction COMPARISON: 03/16/2024 FINDINGS: LUNGS: No infiltrate, pneumothorax, or pleural effusion. MEDIASTINUM: No abnormal widening. BOWEL GAS PATTERN: Moderate gaseous distention of small bowel loops measuring up to 6.1 centimeters. Gaseous distention of the hepatic flexure. There is paucity of air in the sigmoid colon and rectum FREE AIR: None. CALCIFICATIONS: None significant. BONES: No fracture or visible bone lesion. OTHER: Negative. XR/XR acute abdomen series IMPRESSION: Gaseous distention of small bowel loops and right colon. Ileus versus bowel obstruction Electronically authenticated by: MARIEL MONROE Date: 03/18/2024 08:55
[2024-03-18] MEDS: CARVEDILOL 6.25 MG TABLET PO ×2 (09:16→20:46)
[2024-03-18] MEDS: APIXABAN 5 MG TABLET PO ×2 (09:16→20:46)
[2024-03-18] MEDS: AMIODARONE HCL 200 MG TABLET 100 MG PO (09:16)
[2024-03-18] MEDS: POTASSIUM CHLORIDE 10 MEQ ER TABLET 20 MEQ PO ×2 (09:16→20:46)
[2024-03-18] MEDS: ERTAPENEM SODIUM 1 GM in 0.9 % SODIUM CHLORIDE 50 ML IV (10:07)
--- NOTE | 2024-03-18 11:50 | SWNOTE1 ---
RUBI reached out to Dr. Smith in regards to discharge plans. SW to set up IV anbx for at discharge. Dr. Smith did let SW know that his office was working on this, SW to check with office. RUBI stopped in to speak with pt. Pt is independent and her daughter lives at home with her. Pt did have PICC line placed. SW asked about home health versus being an [facility] patient and coming to hospital for anbx. Pt voiced she prefers to come to hospital once daily. She stated it would have to be after 3:00 when her daughter gets off work. RUBI stated that centralized scheduling will call pt to coordinate time. SW to check with Dr. Smith's office to see what needs to be completed. SW called Dr. Smith;s office and spoke to a nurse. She did state that an order for IV Invanz 1x daily, pharmacy to dose was sent over to centralized scheduling yesterday. SW to check with pharmacy and centralized scheduling to confirm.
--- NOTE | 2024-03-18 12:03 | SWNOTE1 ---
SW called centralized scheduling and pt is scheduled at 3:30 every day. They voiced just to contact when pt is being discharged. SW called [facility] and they are aware of pt being on floor as well and will keep in contact in regards to when pt is discharging.
--- NOTE | 2024-03-18 12:38 | SWNOTE1 ---
Important Message from [employer] reviewed and discussed with patient. Pt. verbalized understanding and signed the form. Original given to patient and copy placed in patient?s chart.
[2024-03-18] MEDS: ONDANSETRON PF 4 MG/2 ML VIAL IV (13:30)
--- NOTE | 2024-03-18 14:43 | SWNOTE1 ---
SW notified pt that she is set up as an [facility] patient for 3:30 daily once she discharges.
[2024-03-18] MEDS: DOXEPIN HCL 25 MG CAPSULE 50 MG PO (23:11)
[2024-03-19] VITALS (7 sets, daily range): BP systolic 125–137; BP diastolic 76–88; PULSE 70–82; TEMP 36.5–36.9; O2SAT 92–96
[2024-03-19] MEDS: LACTATED RINGER'S SOLUTION 1,000 ML 125 ML IV ×2 (02:23→11:04)
[2024-03-19] MEDS: ONDANSETRON PF 4 MG/2 ML VIAL IV ×3 (02:27→20:16)
[2024-03-19] MEDS: MAALOX (MAG HYDROX/ALUMINUM HYD/SIMETH) 30 ML ORAL.SUSP PO (02:27)
[2024-03-19] MEDS: LEVOTHYROXINE SODIUM 25 MCG TABLET 50 MCG PO (05:58)
[2024-03-19] MEDS: OMEPRAZOLE 40 MG CAPSULE.DR PO (05:58)
[2024-03-19] MEDS: OXYCODONE HCL 5 MG TABLET PO ×2 (06:01→21:36)
[2024-03-19 06:36] LABS: Basophils Percent Auto 0.2 % (0.2-2.0); Eosinophils Absolute Auto 0.2 10^3/uL (0.0-0.7); Eosinophils Percent Auto 2.7 % (0.9-7.0); Hematocrit 31.4 % (36.0-48.0); Hemoglobin 9.7 g/dL (12.0-16.0); Immature Granulocytes Abs Auto 0.03 10^3/uL (0.00-0.03); Immature Granulocytes Pct Auto 0.4 % (0.0-0.5); Lymphocytes Absolute Auto 1.5 10^3/uL (1.2-3.8); Lymphocytes Percent Auto 18.5 % (20.5-60.0); Mean Corpuscular HGB Conc 30.9 g/dL (29.9-35.2); Mean Corpuscular Hemoglobin 26.8 pg (26.7-34.0); Mean Corpuscular Volume 86.7 fL (81.0-99.0); Mean Platelet Volume 10.4 fL (9.5-13.5); Monocytes Absolute Auto 0.7 10^3/uL (0.3-0.8); Monocytes Percent Auto 8.1 % (1.7-12.0); Neutrophils Absolute Auto 5.7 10^3/uL (1.4-6.5); Neutrophils Percent Auto 70.1 % (43.0-75.0); Platelet Count 413 10^3/uL (150-450); Red Blood Count 3.62 10^6/uL (4.20-5.40); Red Cell Distribution Width 18.8 % (11.0-15.0); White Blood Count 8.1 10^3/uL (4.0-11.0)
[2024-03-19 07:02] LABS: Alanine Aminotransferase 35 U/L (14-59); Albumin Globulin Ratio 0.7; Albumin Level 2.3 g/dL (3.4-5.0); Alkaline Phosphatase 85 U/L (46-116); Anion Gap 11.3; Aspartate Amino Transferase 18 U/L (15-37); BUN Creatinine Ratio 7.5; Bilirubin Total 0.5 mg/dL (0.2-1.0); Calcium 8.3 mg/dL (8.5-10.1); Carbon Dioxide 27.2 mmol/L (21.0-32.0); Chloride 103 mmol/L (98-107); Estimated GFR (African America >60 (>=60 mL/min/1.73m^2); Estimated GFR (Non-African Ame >60 (>=60 mL/min/1.73m^2); Globulin 3.3 g/dL; Glucose 90 mg/dL (74-106); Potassium 3.5 mmol/L (3.5-5.1); Sodium 138 mmol/L (136-145); Total Protein 5.6 g/dL (6.4-8.2)
--- NOTE | 2024-03-19 07:32 | P.DS_ITS ---
DS: Providers Provider Date of admission: 03/18/24 07:09 Primary care physician: Lele Smith MD DS: Diagnosis Discharge Diagnosis (1) Nausea and vomiting: Qualifiers: Vomiting type: unspecified Qualified Code(s): R11.2 - Nausea with vomiting, unspecified (2) Partial bowel obstruction: Qualifiers: Intestinal obstruction type: other intestinal obstruction Qualified Code(s): K56.690 - Other partial intestinal obstruction (3) Hypertension: Qualifiers: Hypertension type: primary hypertension Qualified Code(s): I10 - Essential (primary) hypertension (4) A-fib: Qualifiers: Atrial fibrillation type: paroxysmal Qualified Code(s): I48.0 - Paroxysmal atrial fibrillation (5) Paralytic ileus of large intestine: (6) Constipation: Qualifiers: Constipation type: unspecified constipation type Qualified Code(s): K59.00 - Constipation, unspecified Plan Admission findings: CT scan consistent with bowel obstruction and patient now with emesis Acute abdomen with obstruction: Stay well at the time of discharge Constipation likely secondary to the obstruction-improving at the time of discharge Hypertension: Stable here-continue with home medications A-fib: Rate controlled-continue with home medications Severe protein calorie malnutrition-patient has very poor p.o. intake since November. Hypokalemia-supplement Thrombocythemia likely secondary to the inflammation as outlined above, monitor daily Iron deficiency anemia secondary to poor p.o. intake-monitor daily Down somewhat today, check occult blood Hypothyroidism-continue home medications Admission status: Patient failed outpatient treatment with oral antibiotics. She can need long-term IV antibiotics. Bowel obstruction noted on CT scan done, will repeat a acute abdominal series today. Medically necessary treatment will span 2 midnights. Inpatient status. ? ? DS: Summary Hospital Course Hospital Course: Patient was seen and evaluated as an outpatient, she was on oral antibiotics for acute diverticulitis. Started having emesis. X-ray consistent with either ileus or obstruction. X-ray from yesterday showed the same. Repeating x-ray today. She has not had a significant bowel movement since admission. Chest patient took 2 doses of milk of magnesia, she had an enema she had Dulcolax suppository she had 2 doses of lactulose, none of that was effective for creating a bowel movement. She had increased bloating overnight and started having emesis x 2. NG tube is being placed this morning. Case discussed with transfer to [facility] for more definitive care of her severe stricture related to chronic diverticulitis. I will follow patient after discharge, medications see list Status at Discharge Overall status at discharge: patient is not back to baseline Time Spent with Patient Time attestation: Total time spent providing and/or coordinating discharge services: Time spent: greater than 30 minutes Exam Constitutional Vital Signs, click to edit/add: Last Vital Signs Temp 98.3 F 03/18/24 20:45 Pulse 78 03/18/24 20:45 Resp 18 03/18/24 20:45 BP 146/82 H 03/18/24 20:45 Pulse Ox 96 03/19/24 05:26 O2 Del Method Room Air 03/19/24 05:26 Documenting provider has reviewed patient's vital signs: yes Common normals: apparent distress (Mild to moderate painful distress) Chest Common normals: inspection of chest normal Respiratory Common normals: normal respiratory effort and no retractions Cardio Common normals: regular rate and regular rhythm GI Common normals: soft to palpation; negative for Normal to inspection, nondistended, normoactive bowel sounds present (Mild to moderate distention of the abdomen) and tender Palpation: tender (Does seem more distended today than yesterday) Details: LLQ and suprapubic and rebound tenderness present (Rebound tenderness now present, this was not present in the office 3d prior) Extremity Common normals: normal to inspection and full ROM DS: Data Data Completed and Pending Labs on day of discharge: Labs from last 24 hours 03/19/24 06:15 WBC 8.1 RBC 3.62 L Hgb 9.7 L Hct 31.4 L MCV 86.7 MCH 26.8 MCHC 30.9 RDW 18.8 H Plt Count 413 MPV 10.4 Neut % (Auto) 70.1 Lymph % (Auto) 18.5 L Preble % (Auto) 8.1 Eos % (Auto) 2.7 Baso % (Auto) 0.2 Neut # (Auto) 5.7 Lymph # (Auto) 1.5 Preble # (Auto) 0.7 Eos # (Auto) 0.2 Baso # (Auto) 0.0 Abs Immat Gran (auto) 0.03 Imm/Tot Granulo (auto) 0.4 Sodium 138 Potassium 3.5 Chloride 103 Carbon Dioxide 27.2 Anion Gap 11.3 BUN 5.0 L Creatinine 0.67 Est GFR ( Amer) >60 Est GFR (Non-Af Amer) >60 BUN/Creatinine Ratio 7.5 Glucose 90 Calcium 8.3 L Total Bilirubin 0.5 AST 18 ALT 35 Alkaline Phosphatase 85 Total Protein 5.6 L Albumin 2.3 L Globulin 3.3 Albumin/Globulin Ratio 0.7 Discharge Plan Discharge Disposition: Xfer Acute Care Hospital Condition: Good
[2024-03-19] MEDS: BISACODYL 5 MG TABLET 10 MG PO (08:25)
[2024-03-19] MEDS: PROSTAT 15 GM PROTEIN/100 CAL 30 ML LIQUID PACKET PO ×2 (08:26→21:36)
[2024-03-19] MEDS: APIXABAN 5 MG TABLET PO ×2 (08:26→21:36)
[2024-03-19] MEDS: POTASSIUM CHLORIDE 10 MEQ ER TABLET 20 MEQ PO ×2 (08:26→21:36)
[2024-03-19] MEDS: CARVEDILOL 6.25 MG TABLET PO ×2 (08:26→21:36)
[2024-03-19] MEDS: ENSURE HP 237 ML LIQUID PO (08:27)
--- NOTE | 2024-03-19 08:52 | XR_ITS ---
The [address] [address] Patient Name: ANIGE WATT MRN: [id number] date: 1950 Sex: F Assigned Patient Location: [place] Current Patient Location: [place] Accession/Order Number: [id number] Exam Date: 03/19/2024 08:45 Report Date: 03/19/2024 09:18 At the request of: KERRI NOLAND Procedure: XR acute abdomen series EXAMINATION: XR acute abdomen series HISTORY: follow up ileus vs obstruction - compare to prev? COMPARISON: 03/18/2024 FINDINGS: LUNGS: No infiltrate, pneumothorax, or pleural effusion. MEDIASTINUM: No abnormal widening. BOWEL GAS PATTERN: There is moderate gaseous distention of bowel loops measuring up to 4.7 cm. Paucity of air in the colon FREE AIR: None. CALCIFICATIONS: None significant. BONES: No fracture or visible bone lesion. OTHER: Right PICC catheter tip projects over the distal superior vena cava XR/XR acute abdomen series IMPRESSION: Clear lungs Persistent small bowel dilatation with no distal bowel gas, ileus versus obstruction Electronically authenticated by: MARIEL MONROE Date: 03/19/2024 09:18
[2024-03-19] MEDS: AMIODARONE HCL 200 MG TABLET 100 MG PO (09:00)
[2024-03-19] MEDS: ERTAPENEM SODIUM 1 GM in 0.9 % SODIUM CHLORIDE 50 ML IV (11:15)
[2024-03-19] MEDS: BISACODYL 10 MG RECTAL SUPPOSITORY PR (11:23)
[2024-03-19] MEDS: LACTULOSE 10 GM/15 ML UD CUP 30 GM PO (13:05)
[2024-03-19] MEDS: MAGNESIUM HYDROXIDE 2,400 MG/10 ML ORAL.SUSP 4800 MG PO (13:05)
--- NOTE | 2024-03-19 15:12 | PC.NURSE ---
rn attempted to give fleet enema, patient was unable to hold it in. Dr. Smith notified
[2024-03-19] MEDS: HYOSCYAMINE SULFATE 0.125 MG TAB.SUBL SL (21:36)
[2024-03-19] MEDS: DOXEPIN HCL 25 MG CAPSULE 50 MG PO (21:36)
[2024-03-19] MEDS: PROMETHAZINE HCL 12.5 MG in 0.9 % SODIUM CHLORIDE 50 ML 202 MG IV (22:43)
[2024-03-20] MEDS: ONDANSETRON PF 4 MG/2 ML VIAL IV (02:54)
[2024-03-20 03:59] VITALS: O2SAT 91
[2024-03-20 04:00] VITALS: BP 142/89; PULSE 73; TEMP 36.7; O2SAT 95
[2024-03-20] MEDS: PROMETHAZINE HCL 12.5 MG in 0.9 % SODIUM CHLORIDE 50 ML 202 MG IV (05:33)
[2024-03-20] MEDS: LEVOTHYROXINE SODIUM 25 MCG TABLET 50 MCG PO (05:33)
[2024-03-20] MEDS: OMEPRAZOLE 40 MG CAPSULE.DR PO (05:34)
[2024-03-20 05:52] LABS: Basophils Percent Auto 0.2 % (0.2-2.0); Eosinophils Absolute Auto 0.1 10^3/uL (0.0-0.7); Eosinophils Percent Auto 1.3 % (0.9-7.0); Hematocrit 33.4 % (36.0-48.0); Hemoglobin 10.5 g/dL (12.0-16.0); Immature Granulocytes Abs Auto 0.03 10^3/uL (0.00-0.03); Immature Granulocytes Pct Auto 0.3 % (0.0-0.5); Lymphocytes Absolute Auto 0.9 10^3/uL (1.2-3.8); Lymphocytes Percent Auto 9.3 % (20.5-60.0); Mean Corpuscular HGB Conc 31.4 g/dL (29.9-35.2); Mean Corpuscular Hemoglobin 27.1 pg (26.7-34.0); Mean Corpuscular Volume 86.3 fL (81.0-99.0); Mean Platelet Volume 10.2 fL (9.5-13.5); Monocytes Absolute Auto 0.7 10^3/uL (0.3-0.8); Monocytes Percent Auto 7.2 % (1.7-12.0); Neutrophils Absolute Auto 7.7 10^3/uL (1.4-6.5); Neutrophils Percent Auto 81.7 % (43.0-75.0); Platelet Count 431 10^3/uL (150-450); Red Blood Count 3.87 10^6/uL (4.20-5.40); Red Cell Distribution Width 18.9 % (11.0-15.0); White Blood Count 9.4 10^3/uL (4.0-11.0)
[2024-03-20 06:15] LABS: Alanine Aminotransferase 32 U/L (14-59); Albumin Globulin Ratio 0.7; Albumin Level 2.6 g/dL (3.4-5.0); Alkaline Phosphatase 100 U/L (46-116); Anion Gap 10.1; Aspartate Amino Transferase 18 U/L (15-37); BUN Creatinine Ratio 5.4; Bilirubin Total 0.4 mg/dL (0.2-1.0); Calcium 8.9 mg/dL (8.5-10.1); Carbon Dioxide 29.8 mmol/L (21.0-32.0); Chloride 101 mmol/L (98-107); Estimated GFR (African America >60 (>=60 mL/min/1.73m^2); Estimated GFR (Non-African Ame >60 (>=60 mL/min/1.73m^2); Globulin 3.6 g/dL; Glucose 105 mg/dL (74-106); Potassium 3.9 mmol/L (3.5-5.1); Sodium 137 mmol/L (136-145); Total Protein 6.2 g/dL (6.4-8.2)
--- NOTE | 2024-03-20 08:11 | P.DS_ITS ---
DS: Providers Provider Date of admission: 03/18/24 07:09 Primary care physician: Lele Smith MD DS: Diagnosis Discharge Diagnosis (1) Nausea and vomiting: Qualifiers: Vomiting type: unspecified Qualified Code(s): R11.2 - Nausea with vomiting, unspecified (2) Partial bowel obstruction: Qualifiers: Intestinal obstruction type: other intestinal obstruction Qualified Code(s): K56.690 - Other partial intestinal obstruction (3) Hypertension: Qualifiers: Hypertension type: primary hypertension Qualified Code(s): I10 - Essential (primary) hypertension (4) A-fib: Qualifiers: Atrial fibrillation type: paroxysmal Qualified Code(s): I48.0 - Paroxysmal atrial fibrillation (5) Paralytic ileus of large intestine: (6) Constipation: Qualifiers: Constipation type: unspecified constipation type Qualified Code(s): K59.00 - Constipation, unspecified Plan Admission findings: CT scan consistent with bowel obstruction and patient now with emesis Acute abdomen with obstruction: Poor at the time of discharge Constipation likely secondary to the obstruction-poor at the time of discharge Hypertension: Stable here-continue with home medications A-fib: Rate controlled-continue with home medications Severe protein calorie malnutrition-patient has very poor p.o. intake since November. Hypokalemia-supplement Thrombocythemia likely secondary to the inflammation as outlined above, monitor daily Iron deficiency anemia secondary to poor p.o. intake-monitor daily Down somewhat today, check occult blood Hypothyroidism-continue home medications Admission status: Patient failed outpatient treatment with oral antibiotics. She can need long-term IV antibiotics. Bowel obstruction noted on CT scan done, will repeat a acute abdominal series today. Medically necessary treatment will span 2 midnights. Inpatient status. ? DS: Summary Hospital Course Hospital Course: Patient was seen and evaluated as an outpatient, she was on oral antibiotics for acute diverticulitis. Started having emesis. X-ray consistent with either ileus or obstruction. X-ray from yesterday showed the same. Repeating x-ray today. She has not had a significant bowel movement since admission. patient took 2 doses of milk of magnesia, she had an enema she had Dulcolax suppository she had 2 doses of lactulose, none of that was effective for creating a bowel movement. She had increased bloating overnight and started having emesis x 2. NG tube is being placed this morning. Case discussed with transfer to [facility] for more definitive care of her severe stricture related to chronic diverticulitis. I will follow patient after discharge, medications see list transfer arrangements were made today on March 20, 2024 Status at Discharge Functional status at discharge: bed bound Overall status at discharge: patient is not back to baseline Time Spent with Patient Time attestation: Total time spent providing and/or coordinating discharge services: Time spent: greater than 30 minutes Exam Constitutional Vital Signs, click to edit/add: Last Vital Signs Temp 98.1 F 03/20/24 08:17 Pulse 74 03/20/24 08:17 Resp 18 03/20/24 08:17 BP 151/90 H 03/20/24 08:17 Pulse Ox 92 L 03/20/24 11:24 O2 Del Method Room Air 03/20/24 11:24 Documenting provider has reviewed patient's vital signs: yes Common normals: apparent distress (Mild to moderate painful distress) Chest Common normals: inspection of chest normal Respiratory Common normals: normal respiratory effort and no retractions Cardio Common normals: regular rate and regular rhythm GI Common normals: soft to palpation; negative for Normal to inspection, nondistended, normoactive bowel sounds present (Mild to moderate distention of the abdomen) and tender Palpation: tender (Does seem more distended today than yesterday) Details: LLQ and suprapubic and rebound tenderness present (Rebound tenderness now present, this was not present in the office 3d prior) Extremity Common normals: normal to inspection and full ROM Discharge Plan Discharge Disposition: [facility] Condition: Good Discharge Date/Time: 03/20/24 13:15
[2024-03-20 08:17] VITALS: BP 151/90; PULSE 74; TEMP 36.7; O2SAT 92
--- NOTE | 2024-03-20 09:16 | SWNOTE1 ---
Plan is for pt to transfer to [facility].
--- NOTE | 2024-03-20 10:49 | CT_ITS ---
[address] [address] Patient Name: ANGIE WATT MRN: [id number] date: 1950 Sex: F Assigned Patient Location: [place] Current Patient Location: [place] Accession/Order Number: [id number] Exam Date: 03/20/2024 10:40 Report Date: 03/20/2024 11:31 At the request of: KERRI NOLAND Procedure: CT abdomen pelvis w con EXAMINATION: CT abdomen pelvis w con HISTORY: bowel obstruction COMPARISON: CT abdomen pelvis 03/16/2024 TECHNIQUE: Axial, Coronal, and Sagittal images were obtained without and/or with IV contrast as indicated by examination type. Dose reduction techniques were achieved by using automated exposure control and/or adjustment of mA and/or kV according to patient size and/or use of iterative reconstruction technique. FINDINGS: LUNG BASES: No visible pulmonary or pleural disease. LIVER: No enlargement, atrophy, suspicious density, or significant focal lesion. BILIARY: Cholecystectomy. PANCREAS: No lesion, fluid collection, or abnormal duct dilatation. SPLEEN: No enlargement or focal lesion. ADRENALS: No mass or enlargement. KIDNEYS: Stable small benign-appearing right renal cyst. No mass, obstruction, or calcification. BOWEL/MESENTERY: Fluid-filled distended loops of small bowel. Air and fluid-filled colon with gradual transition of the distal descending colon to be completely collapsed sigmoid colon. Several small diverticula along the descending and sigmoid colon without acute inflammatory changes. AORTA/VASCULAR: Fusiform aneurysmal dilation of the aorta just below the renal arteries, 3.3 cm in diameter. Tiny saccular aneurysm along distal left margin of the aorta, 2.9 cm in total diameter. 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 RETROPERITONEUM: No mass or adenopathy. LYMPH NODES: No adenopathy. URINARY BLADDER: No visible focal wall thickening, lesion, or calculus. PELVIC ORGANS: No visible mass. Pelvic organs appropriate for patient age. ABDOMINAL WALL: No mass or hernia. BONES: 14 mm anterior listhesis of L4 on L5 due to bilateral pars interarticularis defects. Complete loss of disc space at L4-5; narrowing at L5-S1. OTHER: Negative. CT/CT abdomen pelvis w con IMPRESSION: 1. Abnormally dilated fluid-filled small bowel and colon with transition at the descending-sigmoid colon junction. No definable mass, and the bowel rivera are not well seen, but I suspect bowel wall thickening resulting in the obstruction versus ileus. Colonoscopy is recommended. 2. Stable aneurysmal dilation of the infrarenal aorta, distal abdominal aorta, and left common iliac artery allowing for measurements in the same plane as the prior study. 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 3. Grade 2, possibly grade 3 anterior listhesis of L4 on 5; grossly stable. Electronically authenticated by: ABRAHAN FRASER Date: 03/20/2024 11:31
[2024-03-20] MEDS: LACTATED RINGER'S SOLUTION 1,000 ML 75 ML IV (10:51)
[2024-03-20] MEDS: ERTAPENEM SODIUM 1 GM in 0.9 % SODIUM CHLORIDE 50 ML IV (10:55)
[2024-03-20 11:24] VITALS: O2SAT 92
== END 2024-03-20 13:15 | disposition short-term general hospital (02) | DRG 388 ==
LOC: ER 17:13 → MS 18:10
PROVIDERS: Physician Assistant; Admitting Provider Internal Medicine; Emergency Provider Emergency Medicine; PCP Family Medicine; Visit Provider Family Medicine
DX: K56.690 Other partial intestinal obstruction (principal); E43 Unspecified severe protein-calorie malnutrition; Z68.41 Body mass index [BMI] 40.0-44.9, adult; K57.92 Diverticulitis of intestine, part unspecified, without perforation or abscess without bleeding; I10 Essential (primary) hypertension; I48.0 Paroxysmal atrial fibrillation; E03.9 Hypothyroidism, unspecified; E87.6 Hypokalemia; D69.6 Thrombocytopenia, unspecified; D50.9 Iron deficiency anemia, unspecified; Z79.01 Long term (current) use of anticoagulants; Z79.890 Hormone replacement therapy; Z79.899 Other long term (current) drug therapy; Z87.891 Personal history of nicotine dependence
CPT/HCPCS: 36415; 36569; 36592; 74022; 74177; 80053; 81003; 83605; 83690; 85025; 85610; 85652; 86140; 94761; 96361; 96374; 96375; 99285; C1887; G0328; J1171; J1335; J2250; J2405; J2765; Q9966; Q9967

== ENCOUNTER 2024-08-19 16:25 | Outpatient (OUT) | payer MEDICARE, OTHER, SELFPAY ==
[2024-08-19 17:43] LABS: TSH W/ REFLEX FT4 4.002 uIU/mL (0.358-3.740)
[2024-08-19 18:20] LABS: Free T4 1.11 ng/dL (0.76-1.46)
== END 2024-08-19 16:26 | disposition home or self-care (01) ==
LOC: LAB 16:26
PROVIDERS: PCP Family Medicine; Visit Provider Nurse Practitioner Family
DX: I48.0 Paroxysmal atrial fibrillation (principal)
CPT/HCPCS: 36415; 84439; 84443